=== PATIENT | male | born 1950 | race Caucasian/White ===

== ENCOUNTER 2020-05-09 12:51 | Emergency (ER) | payer MEDICARE, SELFPAY ==
[2020-05-09 12:53] VITALS: BP 115/63; PULSE 101; RESP 16; TEMP 36.3; O2SAT 94; BMI 17.6
[2020-05-09 12:55] VITALS: BP 115/63; PULSE 101; RESP 16; TEMP 36.3; O2SAT 94
--- NOTE | 2020-05-09 13:25 | EKG12_ITS ---
Test Reason : Blood Pressure : / mmHG Vent. Rate : 080 BPM Atrial Rate : 080 BPM P-R Int : 124 ms QRS Dur : 092 ms QT Int : 362 ms P-R-T Axes : 091 090 063 degrees QTc Int : 417 ms Suspect arm lead reversal, interpretation assumes no reversal Normal sinus rhythm Normal ECG Confirmed by KARYN CALLAWAY, KAMINI ([id number]), editor sound HANNAH NARVAEZ ([id number]) on 05/10/2020 8:36:09 AM Referred By: THERESA Confirmed By:KAMINI BOSS MD
--- NOTE | 2020-05-09 13:26 | ED.VIS.DYS ---
History of Present Illness Chief Complaint: Shortness of Breath Informant: Patient Onset: Weeks - 4-6 Activity at onset: Light Activity Timing: Continuous Quality: - - can't get a deep breath Current Severity: Moderate Maximum Severity: Moderate Worsened by: Exertion, Lying flat Relieved by: Rest Associated Symptoms: Clear sputum, Cough. Negative for: Fever Chest Pain: None Narrative: Patient states he has been a longtime smoker, over 50 years, and he does not have a physician. Comes to the ER because he has had progressively worsening trouble breathing along with an intermittent productive cough for the past 4 to 6 weeks, and for similar period of time, discomfort in his abdomen that he describes as needing to burp/belch but I cannot. No pain, nausea, vomiting, abnormal stools. He has had bouts of constipation, he had a normal bowel movement today with no melena or blood that did not change the discomfort which really is a side note compared with his breathing. He denies any known exposure to COVID-19 although he presents during the pandemic. He denies any fevers, chills, headaches, myalgias. Past Medical History - Allergies and Home Meds Allergies/Adverse Reactions: Allergies No Known Allergies Allergy (Verified 05/09/20 12:53) Doctors: None Past Medical History: None - None known Smoking Status: Current every day smoker Review of Systems General: Denies: Chills, Fever, Sweats Eyes: Denies: Visual changes - bilaterally, Diplopia ENT: Reports: Rhinorrhea - Chronic for years, clear, unchanged. Denies: Bilateral ear pain, Sore throat Cardiovascular: Denies: Chest pain, Palpitations Respiratory: Reports: Dyspnea, Cough, Sputum, Dyspnea on exertion, Orthopnea. Denies: Paroxysmal nocturnal dyspnea Gastrointestinal: Reports: - - See HPI. Denies: Abdominal pain, Nausea, Vomiting, Diarrhea, Melena, Hematochezia Genitourinary: Denies: Dysuria, Hematuria, Frequency Musculoskeletal: Reports: Back pain - Sore, worse with movement, mild. Denies: Myalgias, Neck pain, Swelling, Extremity Pain Skin: Denies: Rash, Wounds Neurological: Denies: Headache, Weakness, Numbness Physical Exam Vital Signs/Narrative: Vital Signs Temp Pulse Resp BP Pulse Ox 05/09/20 12:53 97.3 F L 101 H 16 115/63 94 Inital Vital Signs reviewed: Yes General: Well nourished, Well developed, No Acute Distress - Conversive in full sentences Head: Normocephalic, Atraumatic Eyes: Perrl, EOMI ENT: Moist mucous membranes, No rhinorrhea Neck: Supple, Nontender, No lymphadenopathy, No JVD Cardiovascular: Regular rate, Regular rhythm, No murmurs, Tachycardia - Mild Respiratory: No distress, CTA bilaterally, Chest nontender, Diminished - Throughout, symmetrically Abdomen: Soft, Nontender, Nondistended, Normal bowel sounds Back: Nontender, Normal Inspection. Negative for: CVA tenderness Extremities: Nontender, No edema. Negative for: Calf Tenderness Skin: Normal color, No rash, No Trauma Neurological: Alert, Oriented x3, Cranial nerves II-XII grossly intact, Normal Strength, Normal Sensation, Normal Gait Psychological: Normal Mood, - - A little anxious Diagnostic/Tx/Re-eval Chest X-Ray - ED: 1 View, Read by ED Physician, No Acute Disease, - - Hyperexpansion and flattened diaphragms consistent with COPD pattern Laboratory Results 05/09/20 05/09/20 05/09/20 13:41 13:41 13:41 WBC 9.4 RBC 4.72 Hgb 15.3 Hct 45.4 MCV 96.2 H MCH 32.4 H MCHC 33.7 RDW Std Deviation 40.0 RDW Coeff of Vita 11.3 L Plt Count 271 MPV 8.9 Immature Gran % (Auto) 0.400 Neut % (Auto) 79.6 H Lymph % (Auto) 13.2 L [place] % (Auto) 6.0 Eos % (Auto) 0.4 Baso % (Auto) 0.4 Absolute Neuts (auto) 7.5 Absolute Lymphs (auto) 1.24 Nucleated RBC % 0 Sodium 139 Potassium 4.9 Chloride 104 Carbon Dioxide 33.0 H Anion Gap 2 L BUN 18 Creatinine 0.78 Estim Creat Clear Calc 54.00 Est GFR (MDRD) Af Amer 127 Est GFR (MDRD) Non-Af 105 BUN/Creatinine Ratio 23.0 H Glucose 89 Calcium 9.5 Troponin I < 0.015 B-Natriuretic Peptide 41.9 - Rhythm Strip Rhythm Strip: Sinus Rhythm Rate: 80 Ectopy: None - EKG Initial EKG Interpretation: Sinus Rhythm, No Acute Injury Pattern Prior: Unchanged Treatment - Dyspnea: Albuterol Repeat Evaluation: Improved - Medical Decision Making Labs are all normal including troponin and BNP. With his smoking history and hyperexpanded lungs on chest x-ray, I suspect he has undiagnosed COPD, likely related to the fact that he does not see outpatient physicians. I have referred him to the next doctor on the unassigned list for primary care in addition to our wedding cake designer certified pest control technician. He felt a little better after albuterol from an inhaler that was given to him, in addition to prescriptions for a prednisone taper and inhaled fluticasone to start him on something for maintenance until he can get formally worked up. Since he presents at a peak in the coronavirus pandemic, he was also tested as an outpatient for COVID-19 and advised to quarantine until the results return which will not be today, he does not need to be admitted since he is not hypoxic or having any symptoms concerning for angina. ED Disposition - Plan for ED Patient: Disposition: Home or Assisted Living Diagnosis: Dyspnea Instructions: ED COPD Flare Prescriptions: Fluticasone 110 Mcg [Flovent (SP)] 1 puff INHALATION BID #1 inhaler Prescription Printed Prednisone 10 mg PO UD #33 tab Prescription Printed Referrals: Care Physician,No Primary [Primary Care Provider] - Kerri Wayne DO [STAFF PHYSICIAN] - (call for appt) Evens Vasquez MD [STAFF PHYSICIAN] - (call for appt) Additional Instructions: The inhaler you received in the emergency department is albuterol, it is a rescue inhaler, and can be used as needed acutely for shortness of breath, 2 puffs inhaled up to every 3-4 hours as needed.
[2020-05-09 13:49] LABS: Absolute Lymphocyte Count 1.24 X10^3/uL (0.83-4.51); Absolute Neutrophil Count 7.5 X10^3/uL (2.0-7.7); Basophil# 0.04 X10^3/uL; Basophil% 0.4 % (0-1); Eosinophil# 0.04 X10^3/uL; Eosinophils% 0.4 % (0-5); Hematocrit 45.4 % (40-54); Hemoglobin 15.3 g/dL (13.0-16.5); Lymphocyte # 1.24 X10^3/ul (4.0); Lymphocyte % 13.2 % (19-41); Mean Corp Hgb Conc 33.7 g/dL (32-36); Mean Corpuscular Hgb 32.4 pg (27.0-32.0); Mean Corpuscular Volume 96.2 fL (80-94); Mean Platelet Vol. 8.9 fl (6.2-12.0); Monocyte# 0.56 X10^3/uL; NRBC Flagged by Analyzer 0 % (0-5); Neutrophil # 7.45 X10^3/uL (2.7-7.7); Neutrophil % 79.6 % (47-70); Platelet Count 271 K/mm3 (150-450); RBC Distribution Width CV 11.3 % (11.6-14.6); Red Blood Count 4.72 M/mm3 (4.6-6.2); White Blood Count 9.4 K/mm3 (4.4-11.0)
[2020-05-09 13:55] VITALS: BP 119/62; PULSE 83; RESP 18; TEMP 36.8; O2SAT 98
[2020-05-09 14:06] LABS: BNP,B-Type NATRIURETIC PEPTIDE 41.9 pg/mL (0-100)
[2020-05-09 14:08] LABS: Anion Gap 2 (5-15); BUN 18 mg/dL (7-18); Calcium,Total 9.5 mg/dL (8.5-10.1); Chloride 104 mmol/L (98-107); Creatinine, Serum 0.78 mg/dL (0.70-1.30); EST Glomerular Filtration Rate 105 mL/min (>60); Est Glom Filt Rate - Afr Amer 127 mL/min (>60); Glucose 89 mg/dL (74-106); Potassium 4.9 mmol/L (3.5-5.1); Sodium Level 139 mmol/L (136-145)
--- NOTE | 2020-05-09 14:10 | RAD_ITS ---
STUDY: X-RAY CHEST REASON FOR EXAM: Male, 69 years old. SOB AND COUGH X 6WKS TECHNIQUE: Single AP portable view of the chest. COMPARISON: None. FINDINGS: EKG electrodes are seen. Hyperinflation. Mild scarring at the lung bases. Normal size heart. Normal mediastinum and genaro. There is prominence of the pulmonary hilar arteries without peripheral pulmonary vascular congestion, suggesting pulmonary hypertension. Normal visualized aortic arch and descending thoracic aorta. There are diffuse degenerative changes of the visualized thoracic spine. Normal visualized ribs, clavicles, and shoulders. There is no demonstrated abnormality of the visualized soft tissue structures of the upper abdomen. RAD/Chest 1 View (Portable) IMPRESSION: Hyperinflation. Prominence of the central pulmonary arteries. Electronically Signed: Juan Crum, at 14:34 EST , Service support ,
[2020-05-09 14:31] VITALS: BP 119/72; PULSE 71; RESP 18; O2SAT 98
== END 2020-05-09 14:31 | disposition home or self-care (01) ==
PROVIDERS: Emergency Provider Emergency Medicine
DX: R06.00 Dyspnea, unspecified (principal); R05 Cough; J34.89 Other specified disorders of nose and nasal sinuses; M54.9 Dorsalgia, unspecified; F17.200 Nicotine dependence, unspecified, uncomplicated
CPT/HCPCS: 71045; 80048; 83880; 84484; 85025; 87635; 93005; 94640; 99284; A4216; U0003

== ENCOUNTER 2020-05-31 19:51 | Emergency (ER) | payer MEDICARE, SELFPAY ==
[2020-05-23 09:05] VITALS: BMI 17.7
[2020-05-31 19:52] VITALS: BP 136/63; PULSE 109; RESP 22; TEMP 36.4; O2SAT 94; BMI 18.3
--- NOTE | 2020-05-31 20:11 | ED.RN ---
PT TRIAGED AND AMBULATED BACK TO ROOM, WHEN ASKED TO WEAR GOWN AND GET INTO BED HE DECLINED, STATED HE WAS LEAVING IF EXPECTED TO REMOVE SHIRT OR SIT IN BED. ADAMANTLY REFUSES TO STAY AND SPEAK TO MD. AMBULATED OUT OF DEPT.
== END 2020-05-31 20:15 | disposition left against medical advice (07) ==
LOC: ED 20:14
PROVIDERS: Emergency Provider Emergency Medicine; PCP Internal Medicine Critical Care Medicine
DX: Z53.21 Procedure and treatment not carried out due to patient leaving prior to being seen by health care provider (principal)

== ENCOUNTER 2021-03-19 09:25 | Inpatient (IN) | payer MEDICARE, SELFPAY ==
[2021-03-19] VITALS (28 sets, daily range): BP systolic 82–128; BP diastolic 31–113; PULSE 29–186; RESP 16–165; TEMP 36.3–37.3; O2SAT 89–99; BMI 18.4; BMI 18.1
[2021-03-19] MEDS: Adenosine 6 MG/2 ML Syringe IV (09:45)
[2021-03-19] MEDS: Adenosine 6 MG/2 ML Syringe 12 MG IV (09:46)
--- NOTE | 2021-03-19 09:51 | EKG12_ITS ---
Test Reason : TACHYCARDIA Blood Pressure : / mmHG Vent. Rate : 185 BPM Atrial Rate : 185 BPM P-R Int : 090 ms QRS Dur : 086 ms QT Int : 252 ms P-R-T Axes : 000 089 -33 degrees QTc Int : 442 ms Atrial Flutter with short HI with Premature supraventricular complexes Nonspecific ST abnormality Abnormal ECG Confirmed by KARYN CALLAWAY, KAMINI ([id number]), general expeditor TRACY FIGUEROA ([id number]) on 03/20/2021 2:03:41 PM Referred By: DIANELYS Confirmed By:KAMINI BOSS MD
--- NOTE | 2021-03-19 09:51 | RAD_ITS ---
STUDY: X-RAY CHEST REASON FOR EXAM: Male, 70 years old. Dyspnea. Shortness of breath. COPD. TECHNIQUE: Single AP portable view of the chest. COMPARISON: Comparison is made with prior study dated 05/09/2020. FINDINGS: EKG electrodes are seen. There is hyperinflation of the lungs consistent with chronic obstructive lung disease (COPD). Moderate sized right pleural effusion. Fluid is seen within the right minor fissure. There is evidence of atelectasis and/or infiltration at the right lung base. Normal size heart. Normal mediastinum and genaro. Normal visualized pulmonary arteries. Normal visualized aortic arch and descending thoracic aorta. Normal visualized thoracic spine. Normal visualized ribs, clavicles, and shoulders. There is no demonstrated abnormality of the visualized soft tissue structures of the upper abdomen. RAD/Chest 1 View (Portable) IMPRESSION: Moderate size right pleural effusion with right basilar infiltration and/or atelectasis. Hyperinflation. Electronically Signed: Juan Crum MD at 11:13 EDT , Service support ,
[2021-03-19 10:01] LABS: Absolute Lymphocyte Count 0.95 X10^3/uL (0.83-4.51); Absolute Neutrophil Count 35.5 X10^3/uL (2.0-7.7); Basophil# 0.08 X10^3/uL; Basophil% 0.2 % (0-1); Hematocrit 41.9 % (40-54); Hemoglobin 13.1 g/dL (13.0-16.5); Lymphocyte # 0.95 X10^3/ul (0.83-4.51); Lymphocyte % 2.5 % (19-41); Mean Corp Hgb Conc 31.3 g/dL (32-36); Mean Corpuscular Hgb 29.6 pg (27.0-32.0); Mean Corpuscular Volume 94.6 fL (80-94); Mean Platelet Vol. 10.1 fl (6.2-12.0); Monocyte# 1.54 X10^3/uL; NRBC Flagged by Analyzer 0 % (0-5); Neutrophil # 35.51 X10^3/uL (2.7-7.7); Neutrophil % 91.8 % (47-70); POSITIVE COUNT YES; POSITIVE DIFFERENTIAL YES; Platelet Count 530 K/mm3 (150-450); RBC Distribution Width CV 12.7 % (11.6-14.6); RBC Distribution Width SD 43.8 fl (35.1-43.9); Red Blood Count 4.43 M/mm3 (4.6-6.2)
[2021-03-19] MEDS: Ipratropium/Albuterol Sulfate 3 ML AMPUL.NEB INHALATION (10:09)
[2021-03-19] MEDS: Etomidate 20 MG/10 ML Vial 9 MG IV (10:09)
[2021-03-19] MEDS: Albuterol 2.5 MG/3 ML VIAL.NEB. INHALATION (10:09)
[2021-03-19] MEDS: 0.9% Normal Saline 1,000 ML 999 ML IV (10:11)
[2021-03-19 10:14] LABS: International Normalized Ratio 1.4; Prothrombin Time (Protime)PT. 16.4 SECONDS (11.7-14.9)
[2021-03-19 10:15] LABS: Partial Thromboplast Time 40.3 Seconds (24.1-36.2)
--- NOTE | 2021-03-19 10:18 | EDS_ITS ---
HPI History of Present Illness Chief Complaint: Shortness of Breath Informant: patient and friend Narrative Narrative: 70-year-old male history of COPD presents to the emergency department with shortness of breath. He tells me he got sick about 2 weeks ago and has had worsening cough and shortness of breath over the past couple days. He denies any fevers or diarrhea. States he has been eating and drinking very little. He states that he takes no medications. He has an albuterol aerosol at home but he is never used it. He denies any known heart problems. [facility] Medical History (Updated 03/19/21 @ 13:[address] Meir Terrell DO) COPD (chronic obstructive pulmonary disease) Home Medications albuterol sulfate 90 mcg/actuation aerosol inhaler 2 puff INHALATION Q4H PRN #8.5 g 05/23/20 [Rx Last Taken Unknown] umeclidinium 62.5 mcg-vilanterol 25 mcg/actuation powdr for inhalation 1 inh INHALATION DAILY #60 ea 06/01/20 [Rx Last Taken Unknown] Allergy/AdvReac Type Severity Reaction Status Date / Time No Known Allergies Allergy Verified 03/19/21 10:00 Surgical History History of suburethral sling procedure Social History Smoking Status: Unknown if ever smoked Tobacco: How many years used: 50 ROS ROS ED ROS Narrative Generalized fatigue Constitutional Constitutional ED: Denies chills or weight loss Eyes Eyes: Denies change in vision or diplopia ENT ENT ED: Denies ear pain, rhinorrhea or sore throat Cardiovascular Cardiovascular: Reports racing heartbeat; Denies chest pain, orthopnea or palpitations Respiratory/Chest Respiratory/Chest: Reports cough, dyspnea and sputum; Denies orthopnea Gastrointestinal Gastrointestinal: Denies abdominal pain, diarrhea, nausea or vomiting Genitourinary Genitourinary ED: Denies dysuria, hematuria or urinary frequency Musculoskeletal Musculoskeletal: Denies arthralgias or myalgias Integumentary Denies abscess or rash Neurologic Neurologic: Denies headache(s) or weakness Psychiatric Psychiatric: Denies anxiety, depression, suicidal ideation or suicidal thoughts Endocrine Endocrinology: Denies polydipsia, polyphagia or polyuria Allergic/Immunologic Allergic/Immunologic ED: Denies mouth swelling, tongue swelling or urticaria EXAM Physical Exam Narrative Exam Narrative: Patient appears ill and weak Const Vital Signs: 03/19/21 09:26 03/19/21 09:42 03/19/21 10:06 Temperature 98.3 F 98.3 F Temperature Source Temporal Temporal Pulse Rate 182 H 186 H Respiratory Rate 18 28 H Respiratory Effort Short of Breath Labored Respiratory Depth Shallow Respiratory Pattern Tachypnea Blood Pressure 82/63 L 107/74 Blood Pressure Mean 69 85 Pulse Ox 89 Oxygen Delivery Method Nasal Cannula Nasal Cannula Nasal Cannula Oxygen Flow Rate (L/min) 5 5 03/19/21 10:10 03/19/21 10:27 03/19/21 10:31 Temperature 98.3 F 98.4 F Temperature Source Temporal Temporal Pulse Rate 180 H 186 H 172 H Respiratory Rate 23 H 28 H 28 H Respiratory Effort Respiratory Depth Respiratory Pattern Tachypnea Blood Pressure 124/55 H 107/76 Blood Pressure Mean 78 86 Pulse Ox 91 98 Oxygen Delivery Method Nasal Cannula Oxygen Flow Rate (L/min) 5 5 03/19/21 10:39 03/19/21 11:54 03/19/21 12:05 Temperature 98.4 F 98.1 F 97.3 F L Temperature Source Temporal Temporal Temporal Pulse Rate 157 H 29 L 139 H Respiratory Rate 28 H 165 H 19 H Respiratory Effort Respiratory Depth Respiratory Pattern Blood Pressure 107/76 103/70 104/61 Blood Pressure Mean 86 81 75 Pulse Ox 92 90 95 Oxygen Delivery Method Nasal Cannula Nasal Cannula Oxygen Flow Rate (L/min) 5 5 5 Positive well nourished and well developed General Appearance ED: well developed HEENT Reports normocephalic, head/scalp atraumatic and moist mucous membranes Eyes PERRL and EOMs intact bilaterally Neck no lymphadenopathy, supple and no JVD Resp Resp Narrative: Patient is tachypneic. Lung sounds are diminished. Moist cough. Auscultation: diminished lung sounds Cardio regular rate and no murmurs Rate: tachycardic GI normal to inspection, nondistended, normoactive bowel sounds and non-tender Palpation: soft Back/Spine no CVA tenderness and normal ROM Extremity normal to inspection General Extremety ED: Negative for edema General Extremity: Negative for edema Neuro oriented x3 and CN's II-XII intact bilaterally Sensorium / Orientation: alert Motor Exam: strength 5/5 throughout Psych mental status grossly normal Mood & Affect: Negative for depressed or tearful Skin no rashes or lesions noted and no wounds MDM MDM MDM Narrative Medical decision making narrative: Initial EKG is concerning for SVT. He is initially hypotensive. Patient received a dose of adenosine and a second 12 mg dose. This did not result in any change on the monitor. Patient provided informed emergent verbal consent for sedation for cardioversion. Patient received 9 mg of etomidate. Once adequate sedation was achieved the patient underwent to synchronized 200 J shocks. Each time the patient went into a sinus tachycardia with a rate of around 110 bpm and about 30 seconds later returned back to the narrow complex SVT. Patient was then loaded with amiodarone and placed on the drip. This is sufficiently lowered his rate the 90-130 rate. My interpretation of the chest x-ray is a new large pleural effusion on the right. Patient's white count is elevated at 38.7. His lactic acid is elevated at 2.1. Patient has been receiving IV fluids as his BUN is [address] of the chest was obtained which shows a loculated effusion. My concern is for empyema. Radiology does not have the availability to do a thoracentesis today. He received Zosyn after blood cultures were obtained. I spoke with pulmonology Dr. Gibbs as well as her hospitalist and we will plan on admission. Lab Data Attestation: I reviewed the patient's lab results. Labs: Laboratory Results - last 24 hr 03/19/21 03/19/21 03/19/21 09:35 09:35 09:35 WBC 38.7 H* RBC 4.43 L Hgb 13.1 Hct 41.9 MCV 94.6 H MCH 29.6 MCHC 31.3 L RDW Std Deviation 43.8 RDW Coeff of Vita 12.7 Plt Count 530 H MPV 10.1 Immature Gran % (Auto) 1.500 H Neut % (Auto) 91.8 H Lymph % (Auto) 2.5 L [place] % (Auto) 4.0 Eos % (Auto) 0.0 Baso % (Auto) 0.2 Absolute Neuts (auto) 35.5 H Absolute Lymphs (auto) 0.95 Nucleated RBC % 0 Differential Comment COMMENT Diff Path Review May foll Platelet Estimate MOD INC RBC Morphology NORM C+C PT 16.4 H INR 1.4 APTT 40.3 H Sodium 132 L Potassium 4.5 Chloride 94 L Carbon Dioxide 31.0 Anion Gap 7 BUN 65 H Creatinine 0.98 Estim Creat Clear Calc 57.05 Est GFR (MDRD) Af Amer 98 Est GFR (MDRD) Non-Af 81 BUN/Creatinine Ratio 66.5 H Glucose 115 H Lactic Acid Calcium 9.5 Magnesium 3.1 H Total Bilirubin 0.80 AST 29 ALT 27 Alkaline Phosphatase 111 Troponin I High Sens 35 Total Protein 7.7 Albumin 2.0 L Globulin 5.7 H Albumin/Globulin Ratio 0.4 L 03/19/21 09:35 WBC RBC Hgb Hct MCV MCH MCHC RDW Std Deviation RDW Coeff of Vita Plt Count MPV Immature Gran % (Auto) Neut % (Auto) Lymph % (Auto) [place] % (Auto) Eos % (Auto) Baso % (Auto) Absolute Neuts (auto) Absolute Lymphs (auto) Nucleated RBC % Differential Comment Diff Path Review Platelet Estimate RBC Morphology PT INR APTT Sodium Potassium Chloride Carbon Dioxide Anion Gap BUN Creatinine Estim Creat Clear Calc Est GFR (MDRD) Af Amer Est GFR (MDRD) Non-Af BUN/Creatinine Ratio Glucose Lactic Acid 2.1 H* Calcium Magnesium Total Bilirubin AST ALT Alkaline Phosphatase Troponin I High Sens Total Protein Albumin Globulin Albumin/Globulin Ratio Radiography Diagnostic Testing: Radiology Impression Chest X-Ray 03/19/21 09:51 IMPRESSION: Moderate size right pleural effusion with right basilar infiltration and/or atelectasis. Hyperinflation. Electronically Signed: Juan Crum MD at 11:13 EDT , Service support , Chest CTA 03/19/21 11:07 IMPRESSION: Large right pleural effusion with loculation. Fluid is seen within the minor fissure. Volume loss in the right upper lobe. Underlying emphysematous changes. Electronically Signed: Juan Crum MD at 12:23 EDT , Service support , EKG Initial EKG: Attestation: I personally reviewed and interpreted this EKG as follows: Comments: EKG demonstrates a narrow complex tachycardia at a rate of 185. There appears to be different morphology of the complexes. Discharge Plan Triage Chief Complaint: Shortness of Breath ED Provider: Meir Terrell Dx/Rx/DC Orders Clinical Impression: Sustained SVT, Pleural effusion on right, Sepsis, Acute hypoxemic respiratory failure Prescriptions: No Action albuterol sulfate 90 mcg/actuation HFA aerosol inhaler 2 puff INHALATION Q4H PRN (Reason: shortness of breath or wheezing) Qty: 8.5 RF: 6 umeclidinium-vilanterol 62.5-25 mcg/actuation blister with device 1 inh INHALATION DAILY Qty: 60 RF: 3 Primary Care Provider: Care Physician,No Primary Referrals: Care Physician,No Primary [Primary Care Provider] - Disposition Disposition: Acute Care Hospital [facility]
[2021-03-19 10:19] LABS: ALB/GLOB Ratio 0.4 RATIO (0.9-2.4); AST(SGOT) 29 U/L (15-37); Alanine Aminotransfer ALT/SGPT 27 U/L (16-61); Alkaline Phosphatase 111 U/L (45-117); Anion Gap 7 (5-15); BUN 65 mg/dL (7-18); BUN/Creat Ratio 66.5 RATIO (10-20); Calcium,Total 9.5 mg/dL (8.5-10.1); Chloride 94 mmol/L (98-107); Creatinine, Serum 0.98 mg/dL (0.70-1.30); Differential Indicated SCAN CRITERIA MET; EST Glomerular Filtration Rate 81 mL/min (>60); Est Glom Filt Rate - Afr Amer 98 mL/min (>60); Estimated Creatinine Clearance 57.05 ml/min; Globulin 5.7 g/dL (2.2-4.2); Glucose 115 mg/dL (74-106); Magnesium 3.1 mg/dL (1.6-2.6); Potassium 4.5 mmol/L (3.5-5.1); Protein, Total 7.7 g/dL (6.4-8.2); Sodium Level 132 mmol/L (136-145); Troponin-I HS 35 pg/mL (3.0-78.0); White Blood Count 38.7 K/mm3 (4.4-11.0)
[2021-03-19] MEDS: 0.9% Normal Saline 1,000 ML 150 ML IV ×3 (10:30→23:28)
[2021-03-19 10:35] LABS: Platelet Estimate MOD INC (ADEQ); Red Cell Morphology NORM C+C NORMAL (NORM C&C)
[2021-03-19] MEDS: Amiodarone 360 MG in Dextrose 5% Viaflo Bag 192.8 ML 33.3 MG CONT INF (10:39)
[2021-03-19 10:46] LABS: Lactic Acid 2.1 mmol/L (0.4-1.9)
--- NOTE | 2021-03-19 11:07 | CT_ITS ---
STUDY: CTA CHEST REASON FOR EXAM: Male, 70 years old. Pulmonary embolism RADIATION DOSAGE (If Supplied By Facility): CTDIvol = ( 6.06 ) mGy, DLP = ( 178.20 ) mGycm TECHNIQUE: The examination was performed with the intravenous administration of IV 100mL Isovue-370. Post-processing of the angiographic images was performed, with multiplanar reformation and 3D reconstruction. Individualized dose optimization techniques were used for this CT. COMPARISON: Comparison is made with prior chest radiograph done earlier in the day. FINDINGS: Normal enhancement of the main pulmonary artery and right and left pulmonary arteries. Normal enhancement of the bilateral peripheral pulmonary arteries. There is no demonstrated pulmonary embolism. There is atherosclerotic calcification of the aortic arch with tortuosity. There is no demonstrated aortic dissection. There are calcifications of the coronary arteries. Normal mediastinum. Normal hilar regions. Normal visualized trachea and bronchi. Large right pleural effusion with loculation. Fluid is seen in the right minor fissure. There is evidence of volume loss in the right upper lobe. Mild loss Normal chest wall structures. Normal osseous structures. Normal visualized upper abdomen. CT/CTA Chest W/WO Contrast IMPRESSION: Large right pleural effusion with loculation. Fluid is seen within the minor fissure. Volume loss in the right upper lobe. Underlying emphysematous changes. Electronically Signed: Juan Crum MD at 12:23 EDT , Service support ,
[2021-03-19] MEDS: 0.9% Normal Saline 1,000 ML 1000 ML IV ×2 (11:20→13:25)
--- NOTE | 2021-03-19 13:15 | HP.PCM.HOS_ITS ---
HPI - General General Date of Admission: 03/19/21 HPI Narrative MAGO GILLIAM, is a 70 M with a PMH as outlined which includes COPD who presents via the ED on 03/19/2021 with a complaint of shortness of breath. He doesnt follow up a physician. He got sick about 2 weeks ago, which has gradually worsened.He hadnt been eating or drinking much. He denied any chest pain, palpitations, dizziness, nausea or vomiting. He was noted to have a HR in the 180s, which EKG showed a multifocal atrial tachycardia. He didnt improve with administration of adenosine, nor did he improve after being cardioverted x 2. He was started on amiodarone drip. Vitals showed temp of 97.3F, HR of 139, RR of 19, BP of 104/61 and he was saturating at 95% on 2L of oxygen. CBC showed hemoglobin of 13.1 with WBC of 38.7 and platelets of 530. Chemistry was remarkable for sodium of 132. COVID-19 PCR test was negative. CTA of the chest showed no evidence of PE but showed a large right pleural effusion with locu lation and evidence of volume loss in the right upper lobe. Case was discussed with radiology and pulmonology by ED doctor and there was no possibility of doing thoracentesis today. Patient has been managed for acute hypoxic respiratory failure due to large right pleural effusion as well as sepsis due to probable pneumonia with parapneumonic effusion and SVT. FOR[facility]LY [facility] Medical History (Updated 03/19/21 @ 15:18 by Jelena Trevino) Alcohol abuse Atrial fibrillation (03/19/21) COPD (chronic obstructive pulmonary disease) Former smoker Vision loss of left eye Vision loss of right eye Home Medications albuterol sulfate 90 mcg/actuation aerosol inhaler 2 puff INHALATION Q4H PRN #8.5 g 05/23/20 [Rx Last Taken 03/18/21] Allergy/AdvReac Type Severity Reaction Status Date / Time No Known Allergies Allergy Verified 03/19/21 10:00 Surgical History History of suburethral sling procedure Social History Smoking Status: Former smoker quit date: 03/30/20 pack-years: 50 Tobacco: How many years used: 50 ROS Review of Systems ROS Unobtainable: Denies due to encephalopathy Constitutional Constitutional: Reports anorexia, change in weight, fatigue, malaise and weakness; Denies chills, fever(s) or night sweats ENT HEENT: Denies abnormal hearing, dysphagia, epistaxis, nasal congestion, nasal discharge, sinus pressure or sore throat Cardiovascular Cardiovascular: Reports dyspnea on exertion, orthopnea, palpitations, paroxysmal nocturnal dyspnea and rapid heart rate; Denies chest pain, edema, lightheadedness or syncope Respiratory/Chest Respiratory/Chest: Reports cough, dyspnea, productive cough, shortness of breath at rest and shortness of breath with exertion; Denies excessive phlegm production or hemoptysis Gastrointestinal Gastrointestinal: Denies abdominal pain, constipation, diarrhea, nausea or vomiting Genitourinary Genitourinary: Denies burning urination, dysuria or urinary frequency Musculoskeletal Musculoskeletal: Denies arthralgias, joint pain, joint swelling or myalgias Neurologic Neurologic: Denies confusion, dizziness, focal weakness, numbness, seizure-like activity or syncope Psychiatric Psychiatric: Denies anxiety or depression Vital Signs Vital Signs Vital Signs: 03/19/21 09:26 03/19/21 09:42 03/19/21 10:06 Temperature 98.3 F 98.3 F Temperature Source Temporal Temporal Pulse Rate 182 H 186 H Respiratory Rate 18 28 H Respiratory Effort Short of Breath Labored Respiratory Depth Shallow Respiratory Pattern Tachypnea Blood Pressure 82/63 L 107/74 Blood Pressure Mean 69 85 Pulse Ox 89 Oxygen Delivery Method Nasal Cannula Nasal Cannula Nasal Cannula Oxygen Flow Rate (L/min) 5 03/19/21 10:10 03/19/21 10:27 03/19/21 10:31 Temperature 98.3 F 98.4 F Temperature Source Temporal Temporal Pulse Rate 180 H 186 H 172 H Respiratory Rate 23 H 28 H 28 H Respiratory Effort Respiratory Depth Respiratory Pattern Tachypnea Blood Pressure 124/55 H 107/76 Blood Pressure Mean 78 86 Pulse Ox 91 98 Oxygen Delivery Method Nasal Cannula Oxygen Flow Rate (L/min) 5 5 03/19/21 10:39 03/19/21 11:54 03/19/21 12:05 Temperature 98.4 F 98.1 F 97.3 F L Temperature Source Temporal Temporal Temporal Pulse Rate 157 H 29 L 139 H Respiratory Rate 28 H 165 H 19 H Respiratory Effort Respiratory Depth Respiratory Pattern Blood Pressure 107/76 103/70 104/61 Blood Pressure Mean 86 81 75 Pulse Ox 92 90 95 Oxygen Delivery Method Nasal Cannula Nasal Cannula Oxygen Flow Rate (L/min) 5 5 5 Weight Weight: 125 lb Body Mass Index (BMI) 18.4 Physical Exam Const alert and oriented x3 General Appearance: cooperative Orientation / Consciousness: lethargic HEENT normocephalic, head/scalp atraumatic and hearing grossly normal bilaterally HEENT Narrative: dry mucous membranes Eyes PERRL, EOMs intact bilaterally and conjunctivae normal Neck no lymphadenopathy, supple and no JVD Resp Resp Narrative: tachypneic, decreased breath sounds in right mid and lower lung coppola; no wheezes or crackles. on 5L of oxygen Cardio S1 normal heart sound, S2 normal heart sound and no murmurs Cardio Narrative: tachycardic GI normal to inspection, nondistended, normoactive bowel sounds, soft to palpation, non-tender and non-distended Extremity normal to inspection, full ROM and no clubbing, cyanosis or edema Peripheral Pulses: Yes pulses 2+ throughout Skin no rashes or lesions noted Neuro oriented x3, CN's II-XII intact bilaterally and moves all extremities Sensorium / Orientation: awake and alert Psych affect normal Results Lab / Micro Data Result Diagrams: 03/19/21 09:35 03/19/21 09:35 Labs: Laboratory Results - last 24 hr 03/19/21 09:35: WBC 38.7 H*, RBC 4.43 L, Hgb 13.1, Hct 41.9, MCV 94.6 H, MCH 29.6, MCHC 31.3 L, RDW Std Deviation 43.8, RDW Coeff of Vita 12.7, Plt Count 530 H, MPV 10.1, Immature Gran % (Auto) 1.500 H, Neut % (Auto) 91.8 H, Lymph % (Auto) 2.5 L, Emmet % (Auto) 4.0, Eos % (Auto) 0.0, Baso % (Auto) 0.2, Absolute Neuts (auto) 35.5 H, Absolute Lymphs (auto) 0.95, Nucleated RBC % 0, Differe ntial Comment COMMENT, Diff Path Review May foll, Platelet Estimate MOD INC, RBC Morphology NORM C+C 03/19/21 09:35: PT 16.4 H, INR 1.4, APTT 40.3 H 03/19/21 09:35: Sodium 132 L, Potassium 4.5, Chloride 94 L, Carbon Dioxide 31.0, Anion Gap 7, BUN 65 H, Creatinine 0.98, Estim Creat Clear Calc 57.05, Est GFR (MDRD) Af Amer 98, Est GFR (MDRD) Non-Af 81, BUN/Creatinine Ratio 66.5 H, Glucose 115 H, Calcium 9.5, Magnesium 3.1 H, Total Bilirubin 0.80, AST 29, ALT 27, Alkaline Phosphatase 111, Troponin I High Sens 35, Total Protein 7.7, Albumin 2.0 L, Globulin 5.7 H, Albumin/Globulin Ratio 0.4 L 03/19/21 09:35: Lactic Acid 2.1 H* Micro: Microbiology 03/19/21 10:05 Nasal Secretion SARS-CoV-2 Antigen (Rapid) - Final Radiology Impression Chest X-Ray 03/19/21 09:51 IMPRESSION: Moderate size right pleural effusion with right basilar infiltration and/or atelectasis. Hyperinflation. Electronically Signed: Juan Crum MD at 11:13 EDT , Service support , Chest CTA 03/19/21 11:07 IMPRESSION: Large right pleural effusion with loculation. Fluid is seen within the minor fissure. Volume loss in the right upper lobe. Underlying emphysematous changes. Electronically Signed: Juan Crum MD at 12:23 EDT , Service support , Assessment & Plan Assessment/Plan (1) Pleural effusion, right: (2) Sepsis with acute hypoxic respiratory failure: (3) Sepsis: (4) Tachycardia: PLAN: #Acute hypoxic respiratory failure due to right pleural effusion * admit to ICU * Chest CT was negative for PE, but showed large right pleural effusion * patient'w wbc is markedly elevated at 38 * started on IV zosyn; will continue and add on IV vancomycin for broader antibiotic coverage * get blood cultures * titrate oxygen to maintain sats >90% * breathing treatment with bronchodilators * for diagnostic and therapeutic thoracentesis tomorrow * #Sepsis due to pleural effusion, probably parapneumonic * SIRS criteria- 3/4, tachypnea, tachycardia and leucocytosis, with source of infection being pneumonia * started on IV zosyn; will add on IV vancomycin * get blood cultures; check urine for strep and legionella * hydrate gently with IVF * trend lactic acid, which was 2.1 on admission * * #Supraventricular Tachycardia * patient's HR is in the 100s; was in the 180s on admission. had to be started on amiodarone drip, as he didnt respond to adenosine or cardioversion in the ED * cardiology consulted * 2D echo ordered * Potassium and magnesium are WNL * #COPD * doesnt use his inlahers at home, nor does he follow up with any physician * breathing treatment with bronchodilators * titrate oxygen to maintain sats .90% * DVT prophylaxis: lovenox Code status:full code * Patient counseled about differences between full code, DNRCC and DNRCCA. Patient elects to be full code. Charges/Coding Visit Charges Inpatient E&M: 31082 Init Hosp L3 Procedures Hospitalists Procedures: 79795 Advncd Care Plan 30 Min
--- NOTE | 2021-03-19 13:43 | NURSING ---
ICU KORAM PLEURAL EFFSUSION, MAT, ACUTE HYPOXEMIC RESP FAILURE
[2021-03-19 13:56] LABS: Reflex Lactate? Y
--- NOTE | 2021-03-19 14:47 | ECHOD_ITS ---
Reason For Study: ARRHYTHMIA Procedure This was a 2D Doppler, Color Flow transthoracic echocardiogram. The study was technically difficult. Due to HR and PT sitting upright due to discomfort. Exam performed portable in ICU/CCU. Left Ventricle Normal LV size. Left ventricular systolic function is normal. The estimated ejection fraction is 50 %. No regional wall motion abnormalities noted. Right Ventricle Normal RV size. Normal systolic function. Atria Normal left atrium. Normal right atrium. Mitral Valve Normal mitral valve. Tricuspid Valve Normal tricuspid valve. Mild to moderate (1-2+) tricuspid valve insufficiency. Pulmonary artery systolic pressure is 50 mmHg. Aortic Valve Normal aortic valve. Pulmonic Valve Normal pulmonic valve. Great Vessels Normal aortic root. The pulmonary artery is normal size. Normal inferior vena cava. Pericardium/Pleural No pericardial effusion. MMode/2D Measurements & Calculations LVIDd: 4.0 cm IVSd: 0.86 cm Ao root diam: 3.5 cm LVIDs: 3.1 cm LVPWd: 1.0 cm RVDd: 3.5 cm FS: 22.5 % LAV(MOD-bp): 60.9 ml LA A4 area: 18.7 cm2 LA dimension(2D): 4.8 cm LAV(MOD-bp) Indexed: 36.0 ml/m2 LAV(MOD-sp2): 70.6 ml LAV(MOD-sp4): 53.4 ml RA A4 area: 12.6 cm2 Time Measurements MV dec time: 0.14 sec Doppler Measurements & Calculations MV E max du: 82.0 cm/sec Ao V2 max: 129.9 cm/sec LV V1 max: 104.1 cm/sec MV A max du: 60.4 cm/sec Ao max P.7 mmHg LV V1 max P.3 mmHg MV E/A: 1.4 PA V2 max: 54.5 cm/sec TR max du: 336.4 cm/sec TR max P.3 mmHg ECHO/Echo Complete Interpretation Summary Normal LV size. Left ventricular systolic function is normal. The estimated ejection fraction is 50 %. Pulmonary artery systolic pressure is 50 mmHg. Ordering Physician: Kailey Aguilar Referring Physician: ADAM PCP Performed By: Juliet Wing RDCS, RVT
[2021-03-19 14:48] LABS: Lactic Acid 1.6 mmol/L (0.4-1.9)
[2021-03-19 15:31] LABS: Troponin-I HS 30 pg/mL (3.0-78.0)
[2021-03-19 15:53] LABS: Pathologist Review Reviewed
--- NOTE | 2021-03-19 17:18 | PCM.RX.CS ---
Consult Pharmacy has been consulted to manage selected antiobiotic: Vancomycin Type of Consult: New start Prior Doses of Antibiotics Received/Current Regimen: Medications Vancomycin HCl 1,500 mg/ (Sodium Chloride) 530 mls @ 250 mls/hr IV X1 ONE Stop: 03/19/21 17:37 Last Admin: 03/19/21 16:25 Dose: 250 mls/hr Documented by: Labs: Sodium 132 mmol/L (136-145) L 03/19/21 09:35 Potassium 4.5 mmol/L (3.5-5.1) 03/19/21 09:35 Chloride 94 mmol/L (98-107) L 03/19/21 09:35 Carbon Dioxide 31.0 mmol/L (21.0-32.0) 03/19/21 09:35 Anion Gap 7 (5-15) 03/19/21 09:35 BUN 65 mg/dL (7-18) H 03/19/21 09:35 Creatinine 0.98 mg/dL (0.70-1.30) 03/19/21 09:35 Est GFR (MDRD) Af Amer 98 mL/min (>60) 03/19/21 09:35 Est GFR (MDRD) Non-Af 81 mL/min (>60) 03/19/21 09:35 BUN/Creatinine Ratio 66.5 RATIO (10-20) H 03/19/21 09:35 Glucose 115 mg/dL (74-106) H 03/19/21 09:35 Microbiology: Microbiology 03/19/21 10:05 Nasal Secretion SARS-CoV-2 Antigen (Rapid) - Final Weight used for dosin kg Estimated Creatinine Clearance: 54 Goal Trough: 15-20 mcg/mL Pharmacy Plan for Drug Dosing: Vanc 1500mg IV x1 load and 500mg IV q12h after per policy with trough prior to 4th dose. Pharmacy Service will continue to monitor and adjust dosing as required. Follow-Up Labs: Trough Vancomycin - 03/21 @ 9697
[2021-03-19] MEDS: dilTIAZem 25 MG/5 ML Vial 20 MG IV BOLUS (17:25)
[2021-03-19] MEDS: Amiodarone 360 MG in Dextrose 5% Viaflo Bag 192.8 ML 16.7 MG CONT INF (18:31)
[2021-03-19 19:21] LABS: Troponin-I HS 30 pg/mL (3.0-78.0)
--- NOTE | 2021-03-19 22:33 | NURSING ---
Called Dr. Bo to let him know about pt BP and MAP. For past hour, diastolic BP has been in 30s with MAP of upper 50s. HR has been in 90s. Per provider, Cardizem and Amio drips should remain as they are.
[2021-03-20] VITALS (53 sets, daily range): BP systolic 67–140; BP diastolic 29–121; PULSE 68–90; RESP 14–31; TEMP 36.7–37.8; O2SAT 82–100
--- NOTE | 2021-03-20 | FLU_PTH ---
PATIENT: MAGO GILLIAM LOC: [facility] U#:[id number] AGE/SX: 70/M ROOM: [facility]09 RE03/19/[address]: Dr. Rohan Arizmendi DO : 1950 BED: 1 DIS: 03/22/2021 SPEC #: [id number] RECD: 03/20/21 14:41 STATUS: LINDA REQ #: [id number] DEYSI: 03/20/21 00:[address]: Rohan Arizmendi DEPT: CYTOLOGY RECD BY: Loi Doyle ENTERED: 03/21/21 09:37 SP TYPE: Fluid OTHR DR: MD Dr. Manny Montiel MD Dr. Derek Brown, DO Dr. Nana Yaa Koram, MD No Primary Care Phys PATRICK Ramirez Tissues: THORACIC FLUID Procedures: Special Stain Group II Special Stain Group I Surgery Specimen Level IV AFB Stain (control) GMS Stain (control) Cytospin Fluid HEADER OPERATION: Ultrasound-guided thoracentesis - right PRE-OP DIAGNOSIS: Right pleural effusion TISSUE SUBMITTED: Thoracentesis fluid for cytology DIAGNOSIS CYTOLOGY Thoracentesis fluid for cytology (cytospin and cell block): Marked acute inflammation. Negative for malignant cells. See comment. SJ:aiden 03/22/2021 COMMENT Special stains for acid fast bacilli and fungi are negative for organisms; matched controls are appropriate. Clinical correlation and appropriate follow up are necessary. Case has been reviewed in consultation with Dr. Chan who concurs with the above diagnosis. IDC:AM CYTOLOGY STUDY Slides are reviewed. CYTOLOGY GROSS Received is 90 ml of yellow cloudy fluid labeled with the patient's name and and designated per the requisition as thoracentesis. Submitted for cytology preparation including cell block. / aiden 03/21/2021 TC:2 CPT: 99828, 93190, 11875 x2
[2021-03-20] MEDS: Vancomycin IV 500 MG/100 ML BAG 100 MG IV ×2 (03:51→17:31)
[2021-03-20 04:33] LABS: Anion Gap 4 (5-15); BUN 51 mg/dL (7-18); BUN/Creat Ratio 71.5 RATIO (10-20); Chloride 108 mmol/L (98-107); Creatinine, Serum 0.71 mg/dL (0.70-1.30); EST Glomerular Filtration Rate 116 mL/min (>60); Est Glom Filt Rate - Afr Amer 141 mL/min (>60); Estimated Creatinine Clearance 57.44 ml/min; Glucose 137 mg/dL (74-106); Potassium 5.1 mmol/L (3.5-5.1); Sodium Level 138 mmol/L (136-145)
[2021-03-20 04:36] LABS: Absolute Lymphocyte Count 0.67 X10^3/uL (0.83-4.51); Absolute Neutrophil Count 30.6 X10^3/uL (2.0-7.7); Basophil# 0.16 X10^3/uL; Basophil% 0.5 % (0-1); Hematocrit 37.7 % (40-54); Hemoglobin 10.9 g/dL (13.0-16.5); Lymphocyte # 0.67 X10^3/ul (0.83-4.51); Mean Corp Hgb Conc 28.9 g/dL (32-36); Mean Corpuscular Hgb 29.6 pg (27.0-32.0); Mean Corpuscular Volume 102.4 fL (80-94); Mean Platelet Vol. 9.3 fl (6.2-12.0); Monocyte# 1.45 X10^3/uL; Monocyte% 4.3 % (0-10); NRBC Flagged by Analyzer 0 % (0-5); Neutrophil # 30.63 X10^3/uL (2.7-7.7); Neutrophil % 89.8 % (47-70); POSITIVE COUNT YES; POSITIVE DIFFERENTIAL YES; Platelet Count 451 K/mm3 (150-450); RBC Distribution Width CV 13.2 % (11.6-14.6); RBC Distribution Width SD 49.4 fl (35.1-43.9); Red Blood Count 3.68 M/mm3 (4.6-6.2); White Blood Count 34.1 K/mm3 (4.4-11.0)
[2021-03-20 04:48] LABS: Differential Indicated SCAN CRITERIA MET
[2021-03-20] MEDS: Amiodarone 360 MG in Dextrose 5% Viaflo Bag 192.8 ML 16.7 MG CONT INF ×2 (06:16→17:37)
[2021-03-20] MEDS: 0.9% Normal Saline 1,000 ML 150 ML IV (06:18)
[2021-03-20] MEDS: Ipratropium/Albuterol Sulfate 3 ML AMPUL.NEB INHALATION ×3 (06:35→19:28)
--- NOTE | 2021-03-20 07:45 | CON.PCM.CC_ITS ---
Assessment & Plan Assessment/Plan (1) Pleural effusion, right: PLAN: RECOMMENDATIONS: 1. Continue patient on assist control mode of mechanical ventilation. 2. Wean FiO2 and PEEP to maintain saturations at or above 90%. 3. Proceed with ultrasound-guided thoracentesis. 4. Continue antimicrobials as ordered. 5. Continue bronchodilator therapy. 6. Medical management of SVT per cardiology recommendations. 7. Continue appropriate DVT and GI prophylaxis. IMPRESSIONS: 1. Acute combined respiratory failure Likely secondary to underlying pulmonary infectious etiology with right-sided complicated pleural space and concern for possible parapneumonic effusion versus empyema. The patient decompensated from a respiratory perspective, ultimately requiring intubation on March 20. The patient will be continued on assist control mode of mechanical ventilation. FiO2 will be weaned as tolerated. Plan to proceed with ultrasound-guided thoracentesis. In the interim, broad-spectrum antimicrobials will be continued. 2. Sepsis Sepsis due to pneumonia with complicated pleural space suggestive of parapne umonic effusion versus empyema with acute sepsis related organ dysfunction as evidenced by altered mentation and acute respiratory failure requiring invasive mechanical ventilatory support. Continue supportive measures and antimicrobials as noted above. The patient is currently hemodynamically stable. 3. Questionable obstructive lung disease Although the patient did present to the pulmonary medicine clinic in April 2020, he failed to complete pulmonary function studies and never followed up. For now, it is reasonable to continue bronchodilator therapy. 4. Supraventricular tachycardia Continue medical management per cardiology recommendations. TIME: 42 minutes of critical care time, inclusive of procedures, was spent addressing the patient's acute combined respiratory failure, sepsis related to pneumo kim/parapneumonic effusion versus empyema, questionable COPD, supraventricular tachycardia, review of all data and collaboration with the care team. ([id number]) HPI Consult Data Date of Consult: 03/20/21 HPI Narrative Reason for Consultation: Pleural effusion HPI Narrative: The patient is a 70-year-old male, with a history as outlined below, who presented to the emergency department on March 19 with complaints of dyspnea. The patient was seen on one occasion in the pulmonary medicine clinic in April 2020 after he was referred for the evaluation of COPD. The patient has a smoking history of 50 pack years, having quit completely in March 2020. 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 In addition to his personal smoking history, the patient does report having grown up in a smoking household. Pulmonary function studies, 6-minute walk test and low-dose CT screening of the chest was ordered at that office visit. However, the patient failed to complete any of the testing and never followed up. On presentation to the emergency department, the patient was noted to be afebrile but was notably tachycardic and hypotensive. The patient was tachypneic as well and hypoxemic. Initial laboratory evaluation revealed an elevated white blood cell count to 38,000. Platelet count was elevated to 530,000. Chemistry profile was notable for a sodium of 132, chloride of 94 and BUN of 65. Lactate was elevated to 2.1. CTA chest showed no evidence for pulmonary embolism. However, there was evidence of a large loculated right- sided pleural effusion. Surface echocardiogram revealed normal LV size and function with an ejection fraction of 50%. Pulmonary artery systolic pressure was estimated to be 50 mmHg. Rapid coronavirus antigen testing was negative. The patient was placed on antimicrobials. EKG was consistent with SVT. Adenosine an attempted cardioversion was unsuccessful. The patient was subsequently placed on Cardizem and amiodarone. On my evaluation of the patient this morning, he was notably somnolent with very little response to verbal and tactile stimulation. Arterial blood gas was obtained and revealed a pH of 7.08 with a PCO2 of 90 and PO2 of 58. The patient was subsequently placed on AVAPS therapy with repeat ABG approximately 1 hour later showing little change in the patient's acid-base status. Therefore, the patient's family was contacted who confirmed his CODE STATUS to be full code. The decision was then made at that time to proceed with intubation. Intubation Indication: Respiratory failure Consent was obtained from: Family The patient was placed in the appropriate sniffing position. Preoxygenated sedation via BiPAP was provided for a minimum of 3 minutes. The patient had continuous cardiac as well as pulse oximetry monitoring during the procedure. Procedure sedation was provided by the administration of 2 mg of Versed, 20 mg of etomidate. Direct laryngoscopy was then performed using a number 4 MAC blade, which revealed a grade 1 view. A 7.5 mm endotracheal tube was visualized advancing between the cords to the level of 25 cm at the lip. The stylette was then removed and discarded. Tube placement was confirmed by fogging in the tube along with equal and bilateral breath sounds. Colorimetric change was visualized on the CO2 meter. The cuff was then inflated and the tube secured using a commercially available device. A good pulse oximetry waveform was seen on the monitor throughout the procedure. A portable chest x-ray has been ord ered to confirm appropriate placement. The patient tolerated the procedure well. FORMERLY [facility], 1928–1983 Medical History Alcohol abuse Atrial fibrillation (03/19/21) COPD (chronic obstructive pulmonary disease) Former smoker Vision loss of left eye Vision loss of right eye Home Medications albuterol sulfate 90 mcg/actuation aerosol inhaler 2 puff INHALATION Q4H PRN #8.5 g 05/23/20 [Rx Last Taken 03/18/21] Allergy/AdvReac Type Severity Reaction Status Date / Time No Known Allergies Allergy Verified 03/19/21 10:00 Surgical History History of suburethral sling procedure Social History Smoking Status: Former smoker quit date: 03/30/20 pack-years: 50 Tobacco: How many years used: 50 ROS Review of Systems ROS Unobtainable: due to encephalopathy and due to mental status Physical Exam Const General Appearance: lethargic and ill appearing Orientation / Consciousness: confused and disoriented Exam Limitations: altered mental status Nutritional Appearance: thin HEENT normocephalic and head/scalp atraumatic Eyes PERRL, EOMs intact bilaterally and conjunctivae normal Neck supple General: trachea midline Chest inspection of chest normal Resp Effort and Inspection: tachypneic and labored Auscultation: rales and diminished lung sounds; Negative for rhonchi or wheezes Percussion: dullness Upper: right and Lower: right Cardio S1 normal heart sound and S2 normal heart sound Rate: tachycardic GI normal to inspection, nondistended, normoactive bowel sounds Extremity no clubbing, cyanosis or edema Skin no rashes or lesions noted Neuro no focal motor deficits Psych Mood & Affect: flat affect Medical Records Data Medical Nutrition Assessment Dietitian: Malnutrition Criteria Met Start: 03/19/21 16:28 Freq: Status: Active Protocol: Document 03/19/21 16:00 ELLEN (Rec: 03/19/21 16:28 SLA [id number]) Nutrition Malnutrition Evidence of Malnutrition Exists Yes Malnutrition (severe): Acute Illness/Injury Evidenced By Suboptimal Energy Intake ( Severe),Weight Loss (Severe), Physical Changes (Severe) Clinical Problem Acute Disease or Injury Related Malnutrition Etiology related to sepsis/resp failure w/ pt not able to consume adequate nutrition to meet est nutritional needs Signs/Symptoms as evidenced by <50% po intake x >5 days and wt loss of 5.8% x 1 week prior to admission. (Pt appears to have low muscle/fat stores, ie temporal / orbital regions, clavicles, legs and arms look very depleted) Status Active Problem Recommendation Dietitian Recommendations/Changes Will change diet to Regular w/ fortified foods at meals for increased calories/nutrition if consumed. Lab / Micro Data Result Diagrams: 03/20/21 04:10 03/20/21 04:10 Labs: Laboratory Results - last 24 hr 03/19/21 09:35: WBC 38.7 H*, RBC 4.43 L, Hgb 13.1, Hct 41.9, MCV 94.6 H, MCH 29.6, MCHC 31.3 L, RDW Std Deviation 43.8, RDW Coeff of Vita 12.7, Plt Count 530 H, MPV 10.1, Immature Gran % (Auto) 1.500 H, Neut % (Auto) 91.8 H, Lymph % (Auto ) 2.5 L, [place] % (Auto) 4.0, Eos % (Auto) 0.0, Baso % (Auto) 0.2, Absolute Neuts (auto) 35.5 H, Absolute Lymphs (auto) 0.95, Nucleated RBC % 0, Differential Comment COMMENT, Diff Path Review Reviewed, Platelet Estimate MOD INC, RBC Morphology NORM C+C 03/19/21 09:35: PT 16.4 H, INR 1.4, APTT 40.3 H 03/19/21 09:35: Sodium 132 L, Potassium 4.5, Chloride 94 L, Carbon Dioxide 31.0, Anion Gap 7, BUN 65 H, Creatinine 0.98, Estim Creat Clear Calc 57.05, Est GFR (MDRD) Af Amer 98, Est GFR (MDRD) Non-Af 81, BUN/Creatinine Ratio 66.5 H, Glucose 115 H, Calcium 9.5, Magnesium 3.1 H, Total Bilirubin 0.80, AST 29, ALT 27, Alkaline Phosphatase 111, Troponin I High Sens 35, Total Protein 7.7, Albumin 2.0 L, Globulin 5.7 H, Albumin/Globulin Ratio 0.4 L 03/19/21 09:35: Lactic Acid 2.1 H* 03/19/21 14:10: Lactic Acid 1.6 03/19/21 14:55: Troponin I High Sens 30 03/19/21 18:50: Troponin I High Sens 30 03/20/21 04:10: WBC 34.1 H*, RBC 3.68 L, Hgb 10.9 L, Hct 37.7 L, MCV 102.4 H D, MCH 29.6, MCHC 28.9 L D, RDW Std Deviation 49.4 H, RDW Coeff of Vita 13.2, Plt Count 451 H, MPV 9.3, Immature Gran % (Auto) 3.400 H, Neut % (Auto) 89.8 H, Lymph % (Auto) 2.0 L, [place] % (Auto) 4.3, Eos % (Auto) 0.0, Baso % (Auto) 0.5, Absolute Neuts (auto) 30.6 H, Absolute Lymphs (auto) 0.67 L, Nucleated RBC % 0, Diff Path Review October03/20/21 04:10: Sodium 138, Potassium 5.1, Chloride 108 H, Carbon Dioxide 26.0, Anion Gap 4 L, BUN 51 H, Creatinine 0.71, Estim Creat Clear Calc 57.44, Est GFR (MDRD) Af Amer 141, Est GFR (MDRD) Non-Af 116, BUN/Creatinine Ratio 71.5 H, Glucose 137 H, Calcium 8.0 L Micro: Microbiology 03/20/21 00:30 Urine, Random Legionella Antigen - Final 03/20/21 00:30 Urine, Random Streptococcus pneumoniae Antigen (M - Final 03/19/21 10:05 Nasal Secretion SARS-CoV-2 Antigen (Rapid) - Final Radiology Impression Chest X-Ray 03/19/21 09:51 IMPRESSION: Moderate size right pleural effusion with right basilar infiltration and/or atelectasis. Hyperinflation. Electronically Signed: Juan Crum MD at 11:13 EDT , Service support , Chest CTA 03/19/21 11:07 IMPRESSION: Large right pleural effusion with loculation. Fluid is seen within the minor fissure. Volume loss in the right upper lobe. Underlying emphysematous changes. Electronically Signed: Juan Crum MD at 12:23 EDT , Service support , Echocardiogram 03/19/21 14:47 Interpretation Summary Normal LV size. Left ventricular systolic function is normal. The estimated ejection fraction is 50 %. Pulmonary artery systolic pressure is 50 mmHg. Ordering Physician: Kailey Aguilar Referring Physician: ADAM PCP Performed By: Juliet Wing, ALONRDA, RVT Charges/Coding Procedures Hospitalists Procedures: [id number] Critial Care 1st Hr
--- NOTE | 2021-03-20 08:36 | US_ITS ---
PROCEDURE: ULTRASOUND GUIDED THORACENTESIS. DATE: 03/20/2021. INDICATION: Male, 70 years old. Loculated right pleural effusion. PHYSICIAN: Juan Crum M.D. PROCEDURE: The risks, benefits, and alternatives to the procedure were explained to the patient. The specific risks of bleeding, infection, and pneumothorax requiring chest tube insertion were discussed and accepted. Written informed consent was obtained. Ultrasonographic evaluation of the right lower pleural space was carried out. An adequate pocket was identified. The patient was placed in the sitting, upright position. The overlying skin was prepped and draped in sterile fashion. 1% lidocaine was administered subcutaneously for local anesthesia. Under ultrasound guidance, a 5 [place] thoracentesis needle/catheter system was advanced into the right posterior lower pleural fluid collection. Approximately 130 mL of dark wali-colored fluid was drained. The catheter was removed, and a sterile dressing was applied. A specimen was collected and sent to the laboratory for analysis, as requested by the referring clinician. The patient tolerated the procedure well. A chest x-ray was ordered. US/Thoracentesis W US IMPRESSION: Ultrasound-guided right thoracentesis. Electronically Signed: Juan Crum MD at 14:55 EDT , Service support ,
[2021-03-20 09:01] LABS: Allen Test Positive; Base Excess -3 mmol/L (-2 to +2); Blood Gas Specimen Type ART; O2 Delivery Device Cannula; PO2 58 mmHG (75-100); SITE L Radial; SO2 76 % (95-99); Total Carbon Dioxide 30 mmol/L; pCO2 90.2 mmHg (35-45); pH 7.08 (7.35-7.45)
--- NOTE | 2021-03-20 09:52 | CON.PCM.CA_ITS ---
Assessment & Plan Assessment/Plan (1) Tachycardia: PLAN: He presented with evidence of a supraventricular tachycardia which appears to have resolved with the intravenous amiodarone and the diltiazem. I would recommend continuing that for now without making any major changes. He will be transitioned over time to oral medications. HPI Consult Data Date of Consult: 03/20/21 HPI Narrative HPI Narrative: MAGO GILLIAM, is a 70 M who presents to the emergency room with complaints of shortness of breath which has gradually been getting worse. He apparently has not been taking very good care of himself. He denies any chest pain or shortness of breath or paroxysmal nocturnal dyspnea palpitations dizziness nausea vomiting. In the emergency room he was noted to have an e levated heart rate of approximately 180 bpm. He was initially administered intravenous adenosine which did not improve his symptoms or the EKG and also underwent a DC cardioversion which only reverted back to the narrow complex tachycardia. I was called for advice and further evaluation. He was started on an amiodarone drip and then I also started him later on intravenous diltiazem. His evaluation was significant for an elevated white count as well as a CT scan of the chest showing a large right pleural effusion with loculation. He was admitted to the intensive care unit. An echocardiogram performed demonstrated low normal ejection fraction. This morning he appears to have converted to sinus rhythm and still looks frail and is asymptomatic. [facility] Medical History Alcohol abuse Atrial fibrillation (03/19/21) COPD (chronic obstructive pulmonary disease) Former smoker Vision loss of left eye Vision loss of right eye Home Medications albuterol sulfate 90 mcg/actuation aerosol inhaler 2 puff INHALATION Q4H PRN #8.5 g 05/23/20 [Rx Last Taken 03/18/21] Allergy/AdvReac Type Severity Reaction Status Date / Time No Known Allergies Allergy Verified 03/19/21 10:00 Surgical History History of suburethral sling procedure Social History Smoking Status: Former smoker quit date: 03/30/20 pack-years: 50 Tobacco: How many years used: 50 ROS Constitutional Constitutional: Reports anorexia, poor appetite, weakness and weight loss Eyes Eyes: Reports systems reviewed and no addt'l complaints, except as documented ENT HEENT: Reports systems reviewed and no addt'l complaints, except as documented Cardiovascular Cardiovascular: Denies chest pain at rest, chest pain with activity, dyspnea at rest, dyspnea on exertion, edema, palpitations or paroxysmal nocturnal dyspnea Respiratory/Chest Respiratory/Chest: Denies dyspnea on exertion, productive cough, shortness of breath at rest or shortness of breath with exertion Gastrointestinal Gastrointestinal: Denies change in bowel habits, nausea, vomiting or weight changes Genitourinary Genitourinary: Denies difficulty urinating Musculoskeletal Musculoskeletal: Denies joint stiffness or muscle weakness Integumentary Integumentary: Denies lesions Neurologic Neurologic: Denies dizziness or syncope Psychiatric Psychiatric: Denies anxiety Endocrine Endocrinology: Denies excessive sweating or fatigue Hematologic/Lymphatic Hematologic/Lymphatic: Denies anemia Allergic/Immunologic Allergic/Immunologic: Denies seasonal rhinorrhea Physical Exam Const no apparent distress General Appearance: cooperative and uncooperative Orientation / Consciousness: awake HEENT hearing grossly normal bilaterally Head and Scalp: atraumatic Eyes EOMs intact bilaterally Neck General: normal visual inspection Chest inspection of chest normal and palpation of chest normal Resp normal respiratory effort Auscultation: clear to auscultation bilaterally Cardio regular rate, regular rhythm, S1 normal heart sound and S2 normal heart sound Jugular Venous Distention: JVD GI normal to inspection, nondistended, normoactive bowel sounds Extremity normal capillary refill and no pedal edema Peripheral Pulses: Yes pulses 2+ throughout and femoral pulses present Skin no rashes or lesions noted Neuro oriented x3 and CN's II-XII intact bilaterally Psych Appearance: grossly normal and appropriate Objective Data Vital Signs: Vital Signs Temp Pulse Resp BP Pulse Ox 98.1 F 78 27 H 103/50 L 92 03/20/21 00:00 03/20/21 07:00 03/20/21 07:00 03/20/21 07:00 03/20/21 07:00 Oxygen Flow Rate (L/min) 5 Oxygen Delivery Method Nasal Cannula Weight: 128 lb 6.594 oz Body Mass Index (BMI) 18.1 Intake & Output: Intake and Output for Last 24 Hours 03/18/21 03/19/21 03/20/21 23:59 23:59 23:59 Intake Total 5888.5 / 5898.5 1426.23 / 1426.23 Output Total 100 / 150 50 / 50 Balance 5788.5 / 5748.5 1376.23 / 1376.23 Lab / Micro Data Result Diagrams: 03/20/21 04:10 03/20/21 04:10 Labs: Laboratory Results - last 24 hr 03/19/21 09:35: WBC 38.7 H*, RBC 4.43 L, Hgb 13.1, Hct 41.9, MCV 94.6 H, MCH 29.6, MCHC 31.3 L, RDW Std Deviation 43.8, RDW Coeff of Vita 12.7, Plt Count 530 H, MPV 10.1, Immature Gran % (Auto) 1.500 H, Neut % (Auto) 91.8 H, Lymph % (Auto) 2.5 L, [place] % (Auto) 4.0, Eos % (Auto) 0.0, Baso % (Auto) 0.2, Absolute Neuts (auto) 35.5 H, Absolute Lymphs (auto) 0.95, Nucleated RBC % 0, Differential Comment COMMENT, Diff Path Review Reviewed, Platelet Estimate MOD INC, RBC Morphology NORM C+C 03/19/21 09:35: PT 16.4 H, INR 1.4, APTT 40.3 H 03/19/21 09:35: Sodium 132 L, Potassium 4.5, Chloride 94 L, Carbon Dioxide 31.0, Anion Gap 7, BUN 65 H, Creatinine 0.98, Estim Creat Clear Calc 57.05, Est GFR (MDRD) Af Amer 98, Est GFR (MDRD) Non-Af 81, BUN/Creatinine Ratio 66.5 H, Glucose 115 H, Calcium 9.5, Magnesium 3.1 H, Total Bilirubin 0.80, AST 29, ALT 27, Alkaline Phosphatase 111, Troponin I High Sens 35, Total Protein 7.7, Albumin 2.0 L, Globulin 5.7 H, Albumin/Globulin Ratio 0.4 L 03/19/21 09:35: Lactic Acid 2.1 H* 03/19/21 14:10: Lactic Acid 1.6 03/19/21 14:55: Troponin I High Sens 30 03/19/21 18:50: Troponin I High Sens 30 03/20/21 04:10: WBC 34.1 H*, RBC 3.68 L, Hgb 10.9 L, Hct 37.7 L, MCV 102.4 H D, MCH 29.6, MCHC 28.9 L D, RDW Std Deviation 49.4 H, RDW Coeff of Vita 13.2, Plt C ount 451 H, MPV 9.3, Immature Gran % (Auto) 3.400 H, Neut % (Auto) 89.8 H, Lymph % (Auto) 2.0 L, [place] % (Auto) 4.3, Eos % (Auto) 0.0, Baso % (Auto) 0.5, Absolute Neuts (auto) 30.6 H, Absolute Lymphs (auto) 0.67 L, Nucleated RBC % 0, Diff Path Review October03/20/21 04:10: Sodium 138, Potassium 5.1, Chloride 108 H, Carbon Dioxide 26.0, Anion Gap 4 L, BUN 51 H, Creatinine 0.71, Estim Creat Clear Calc 57.44, Est GFR (MDRD) Af Amer 141, Est GFR (MDRD) Non-Af 116, BUN/Creatinine Ratio 71.5 H, Glucose 137 H, Calcium 8.0 L Micro: Microbiology 03/20/21 00:30 Urine, Random Legionella Antigen - Final 03/20/21 00:30 Urine, Random Streptococcus pneumoniae Antigen (M - Final 03/19/21 10:05 Nasal Secretion SARS-CoV-2 Antigen (Rapid) - Final ABG Data ABG results: ABG 03/20/21 08:56 Specimen Type ART Sample Site L Radial pH 7.08 L* Bicarbonate Actual 27.0 H Total CO2 30 Base Excess -3 L O2 Saturation 76 L ABG pCO2 90.2 H* ABG pO2 58 L [place] Test Positive O2 Delivery Device Cannula Liter Flow 5.0 Crit Call To/Read Back Yes Blood Gas Notified Whom DR MARKS Cardiology Labs/Tests 03/19/21 09:35: WBC 38.7 H*, RBC 4.43 L, Hgb 13.1, Hct 41.9, MCV 94.6 H, MCH 29.6, MCHC 31.3 L, Plt Count 530 H, MPV 10.1, Immature Gran % (Auto) 1.500 H, Neut % (Auto) 91.8 H, Lymph % (Auto) 2.5 L, [place] % (Auto) 4.0, Eos % (Auto) 0.0, Baso % (Auto) 0.2, Absolute Neuts (auto) 35.5 H, Nucleated RBC % 0 03/19/21 09:35: PT 16.4 H, INR 1.4, APTT 40.3 H 03/19/21 09:35: Sodium 132 L, Potassium 4.5, Chloride 94 L, Carbon Dioxide 31.0, Anion Gap 7, BUN 65 H, Creatinine 0.98, Est GFR (MDRD) Af Amer 98, Est GFR (MDRD) Non-Af 81, BUN/Creatinine Ratio 66.5 H, Glucose 115 H, Calcium 9.5, Magnesium 3.1 H, Total Bilirubin 0.80 03/19/21 09:35: Lactic Acid 2.1 H* 03/19/21 14:10: Lactic Acid 1.6 03/20/21 04:10: WBC 34.1 H*, RBC 3.68 L, Hgb 10.9 L, Hct 37.7 L, MCV 102.4 H D, MCH 29.6, MCHC 28.9 L D, Plt Count 451 H, MPV 9.3, Immature Gran % (Auto) 3.400 H, Neut % (Auto) 89.8 H, Lymph % (Auto) 2.0 L, [place] % (Auto) 4.3, Eos % (Auto) 0.0, Baso % (Auto) 0.5, Absolute Neuts (auto) 30.6 H, Nucleated RBC % 0 03/20/21 04:10: Sodium 138, Potassium 5.1, Chloride 108 H, Carbon Dioxide 26.0, Anion Gap 4 L, BUN 51 H, Creatinine 0.71, Est GFR (MDRD) Af Amer 141, Est GFR (MDRD) Non-Af 116, BUN/Creatinine Ratio 71.5 H, Glucose 137 H, Calcium 8.0 L 03/20/21 08:56: pH 7.08 L*, Bicarbonate Actual 27.0 H, Base Excess -3 L, O2 Saturation 76 L, ABG pCO2 90.2 H*, ABG pO2 58 L, [place] Test Positive Rhythm: EKG: ECHO: Stress Test: Cardiac Cath: PCI: CT Surgery: Holter monitor: EPS: PPM: CXR: Chest CT Scan: Radiography Diagnostic Testing: Radiology Impression Chest X-Ray 03/19/21 09:51 IMPRESSION: Moderate size right pleural effusion with right basilar infiltration and/or atelectasis. Hyperinflation. Electronically Signed: Juan Crum MD at 11:13 EDT , Service support , Chest CTA 03/19/21 11:07 IMPRESSION: Large right pleural effusion with loculation. Fluid is seen within the minor fissure. Volume loss in the right upper lobe. Underlying emphysematous changes. Electronically Signed: Juan Crum MD at 12:23 EDT , Service support , Echocardiogram 03/19/21 14:47 Interpretation Summary Normal LV size. Left ventricular systolic function is normal. The estimated ejection fraction is 50 %. Pulmonary artery systolic pressure is 50 mmHg. Ordering Physician: Kailey Aguilar Referring Physician: NO PCP Performed By: Juliet Wing, ALONDRA, RVT
[2021-03-20 10:16] LABS: Allen Test Positive; Base Excess -3 mmol/L (-2 to +2); Bicarbonate 27.6 mmol/L (22-26); Blood Gas Specimen Type ART; Comment AVAPS; FI02 100; O2 Delivery Device BiPAP; PEEP 10; PO2 166 mmHG (75-100); RR 14; SITE L Radial; SO2 99 % (95-99); Total Carbon Dioxide 31 mmol/L; Vt 400; pCO2 94.2 mmHg (35-45); pH 7.08 (7.35-7.45)
--- NOTE | 2021-03-20 11:24 | CASEMGMT ---
SW spoke w/pt's brother Keegan, mom Jennifer and son Densy w/RN. Family has decided to have pt intubated. SW offered support to family. SW explained to family that if decisions need made, it would be son Denys to make decisions. SW explained to Denys that he can of course talk over any decisions with family, but without POA papers he would be the decision maker. Pt does have another son, Chava, however as per family he was caught in a shooting three years ago and shot in the head, and does not process things properly. As per family, pt is normally independent, lives home alone. Pt's brother states that he was to go to the doctor on Friday, ended up in the hospital instead. SW gave family this SW's number, and the SW's number of who will be here the rest of the week, should they need anything. PILI will continue to follow. CASSI Antonio
[2021-03-20] MEDS: Midazolam 2 MG/2 ML Syringe IV (11:35)
[2021-03-20] MEDS: Etomidate 20 MG/10 ML Vial IV (11:37)
--- NOTE | 2021-03-20 11:38 | NURSING ---
MD at bedside to intubate patient. versed, etomidate given Successful intubation at 1138 with b/l breath sounds and positive color change. ETT size 7.5, 25 at lip
[2021-03-20] MEDS: Propofol 10MG/Ml 1,000 MG/100 ML Bottle 3.5 MG CONT INF (11:40)
--- NOTE | 2021-03-20 11:58 | RAD_ITS ---
STUDY: X-RAY CHEST REASON FOR EXAM: Male, 70 years old. line placement post intubation TECHNIQUE: Single AP portable view of the chest. COMPARISON: 03/19/2021 FINDINGS: Interval placement of endotracheal tube with tip approximately 5 cm above the nuno. Interval placement nasogastric tube with tip below the diaphragm. There is hyperinflation of the lungs consistent with chronic obstructive lung disease (COPD). Increased in size the right-sided pleural effusion which is now large in size. Normal size heart. Normal mediastinum and genaro. Normal visualized pulmonary arteries. Normal visualized aortic arch and descending thoracic aorta. Normal visualized thoracic spine. Normal visualized ribs, clavicles, and shoulders. There is no demonstrated abnormality of the visualized soft tissue structures of the upper abdomen. RAD/Chest 1 View (Portable) IMPRESSION: 1. Interval placement of endotracheal tube with tip above the nuno. 2. Interval placement of nasogastric tube with the tip below the diaphragm. 3. Worsening right-sided pleural effusion which is now large in size. Electronically Signed: Wilfrido Baxter MD at 12:28 EDT Tel , Service support ,
[2021-03-20] MEDS: Famotidine 20 MG Tablet GT ×2 (12:29→21:23)
[2021-03-20 13:03] LABS: CPK Total, Creatine Kinase 115 U/L (39-308); Triglycerides 91 mg/dL
[2021-03-20 13:21] LABS: Blood Gas Specimen Type VEN; O2 Delivery Device Adult Vent; PEEP 8; RR 14; SITE L Radial; VBG BASE EXCESS -3 mmol/L (-1.0-3.5); VBG Bicarbonate 25 mmol/L (22-26); VBG PO2 59 mmHg (25-40); VBG SO2 84 % (50-70); VBG TCO2 27 mmol/L (23-33); VBG pCO2 59.1 mmHg (41-51); VBG pH 7.23 (7.32-7.42)
[2021-03-20 13:21] LABS: ALB/GLOB Ratio 0.3 RATIO (0.9-2.4); Globulin 4.3 g/dL (2.2-4.2); LDH 182 U/L (87-241); Protein, Total 5.7 g/dL (6.4-8.2)
[2021-03-20 13:29] LABS: Pathologist Review Reviewed
--- NOTE | 2021-03-20 14:29 | RAD_ITS ---
STUDY: X-RAY CHEST REASON FOR EXAM: Male, 70 years old. Immediately post thoracentesis for pneumothorax TECHNIQUE: AP inspiration and expiration views following a right thoracentesis. COMPARISON: Comparison is made with prior study done earlier today. FINDINGS: The patient is status post right thoracentesis. There is no evidence of pneumothorax. Persistent loculated fluid is seen in the right minor fissure as well as infiltrate in the right lower lobe. RAD/Chest Insp/Exp 2 View IMPRESSION: Status post right thoracentesis. There is no evidence of pneumothorax. Electronically Signed: Juan Crum MD at 14:57 EDT , Service support ,
[2021-03-20 14:41] LABS: Cytology, Body Fluid / CSF SEE PATHOLOGY REPORT
[2021-03-20 15:03] LABS: Body Fluid Mononuclear WBC # 0.115 10^3/uL; Body Fluid Mononuclear WBC % 10.1 %; Body Fluid Polynuclear WBC # 1.024 10^3/uL; Body Fluid Polynuclear WBC % 89.9 %; White Blood Count/Body Fluid 1.139 10^3/uL
[2021-03-20] MEDS: Lidocaine 2% (20 ml mdv) 20 ML Vial (15:16)
[2021-03-20 15:21] LABS: Appearance/Body Fluid SL CLDY; Auto B Fluid Analyzer BKGD Ct COUNTS W/IN LIMITS (W/IN LIMITS); Color/Body Fluid YELLOW; Source- Body Fluid THORACENTESIS
[2021-03-20 15:25] LABS: Red Cell Count/Body Fluid 6 /mm3
[2021-03-20 15:37] LABS: Body Fluid QC Type(s) BF1Q; Lymphocytes 10 %; Neutrophil (Segs) 90 %
[2021-03-20 15:38] LABS: Glucose, Body Fluid < 1 mg/dL (40-70); LDH,Body Fluid 2758 Units/l (Not Establ.); Protein, Body Fluid 4.5 g/dL (Not Establ.)
--- NOTE | 2021-03-20 17:20 | PN.HOSP_ITS ---
Subjective Subjective Patient was seen and examined today, when I examined the patient, he was not on mechanical ventilation, he was sleeping and quiet. Later on this morning, he was intubated due to hypercapnia. He subsequently underwent an ultrasound guided thoracentesis with removal of 130 cc of fluid, it appears from the analysis of the fluid that it is an exudate quite possibly an empyema. Patient is currently on broad-spectrum antibiotics. Objective Data Objective Data Vital Signs: Vital Signs Temp Pulse Resp BP Pulse Ox 100.0 F H 70 14 88/49 L 100 03/20/21 16:00 03/20/21 16:00 03/20/21 16:00 03/20/21 16:00 03/20/21 16:00 Oxygen Flow Rate (L/min) 4 Oxygen Delivery Method [3] Mechanical Ventilator Oxygen Delivery Method [2] Mechanical Ventilator Oxygen Delivery Method [1 ( Mechanical Ventilator Initial Baseline)] Oxygen Delivery Method Mechanical Ventilator Weight: 58.247 kg Body Mass Index (BMI) 18.1 Intake & Output: Intake and Output for Last 24 Hours 03/18/21 03/19/21 03/20/21 23:59 23:59 23:59 Intake Total 5888.5 / 5898.5 2536.18 / 2536.18 Output Total 100 / 150 180 / 180 Balance 5788.5 / 5748.5 2356.18 / 2356.18 Medical Nutrition Assessment Dietitian: Malnutrition Criteria Met Start: 03/19/21 16:28 Freq: Status: Active Protocol: Document 03/20/21 16:18 ELLEN (Rec: 03/20/21 16:18 ELLEN [id number]) Nutrition Malnutrition Evidence of Malnutrition Exists Yes Malnutrition (severe): Acute Illness/Injury Evidenced By Suboptimal Energy Intake ( Severe),Weight Loss (Severe), Physical Changes (Severe) Clinical Problem Acute Disease or Injury Related Malnutrition Etiology related to sepsis/resp failure w/ pt not able to consume adequate nutrition to meet est nutritional needs Signs/Symptoms as evidenced by <50% po intake x >5 days and wt loss of 5.8% x 1 week prior to admission. (Pt appears to have low muscle/fat stores, ie temporal / orbital regions, clavicles, legs and arms look very depleted) Status Active Problem Recommendation Dietitian Recommendations/Changes Rec Vital AF 1.2 at 20 ml/hr w / 25 ml water every 4 hours to provide ~ 576 clayton/ 36 gm pro/ 539 ml free water/day. Will adjust tf rate daily d/t concerns of refeeding syndrome . Will check magnesium and phosphorous in the morning. Lab / Micro Data Result Diagrams: 03/20/21 04:10 03/20/21 04:10 Labs: Laboratory Results - last 24 hr 03/19/21 18:50: Troponin I High Sens 30 03/20/21 04:10: WBC 34.1 H*, RBC 3.68 L, Hgb 10.9 L, Hct 37.7 L, MCV 102.4 H D, MCH 29.6, MCHC 28.9 L D, RDW Std Deviation 49.4 H, RDW Coeff of Vita 13.2, Plt Count 451 H, MPV 9.3, Immature Gran % (Auto) 3.400 H, Neut % (Auto) 89.8 H, Lymph % (Auto) 2.0 L, [place] % (Auto) 4.3, Eos % (Auto) 0.0, Baso % (Auto) 0.5, Absolute Neuts (auto) 30.6 H, Absolute Lymphs (auto) 0.67 L, Nucleated RBC % 0, Diff Path Review Reviewed 03/20/21 04:10: Sodium 138, Potassium 5.1, Chloride 108 H, Carbon Dioxide 26.0, Anion Gap 4 L, BUN 51 H, Creatinine 0.71, Estim Creat Clear Calc 57.44, Est GFR (MDRD) Af Amer 141, Est GFR (MDRD) Non-Af 116, BUN/Creatinine Ratio 71.5 H, Glucose 137 H, Calcium 8.0 L 03/20/21 12:35: Lactate Dehydrogenase 182, Total Protein 5.7 L, Globulin 4.3 H, Albumin/Globulin Ratio 0.3 L 03/20/21 12:35: Total Creatine Kinase 115, Triglycerides 91 03/20/21 14:13: Fluid Glucose < 1 L*, Fluid Total Protein 4.5, Fluid LDH 2758 03/20/21 14:13: Fluid Source THORACENTESIS, Fluid Color YELLOW, Fluid Appearance SL CLDY, Fluid WBC 1.139, Fluid RBC 6, Fluid Tot Cell Count 1.140, Fld Polynuclear WBCs # 1.024, Fld Polynuclear WBCs % 89.9, Fluid Mononuclear WBCs 0.115, Fld Mononuclear WBCs % 10.1, Fluid Neutrophils 90, Fluid Lymphocytes 10, Fl Pathologist Comment May follow, Fluid Comment 2 SEE COMMENT Micro: Microbiology 03/20/21 14:13 Fluid - Other Gram Stain - Final 03/20/21 11:44 Sputum, Induced/Lukens Gram Stain - Final 03/20/21 00:30 Urine, Random Legionella Antigen - Final 03/20/21 00:30 Urine, Random Streptococcus pneumoniae Antigen (M - Final 03/19/21 10:05 Nasal Secretion SARS-CoV-2 Antigen (Rapid) - Final ABG Data ABG results: ABG 03/20/21 03/20/21 03/20/21 08:56 10:07 13:15 Specimen Type ART ART CM Sample Site L Radial L Radial L Radial pH 7.08 L* 7.08 L* Bicarbonate Actual 27.0 H 27.6 H Total CO2 30 31 Base Excess -3 L -3 L O2 Saturation 76 L 99 O2 % 100 ABG pCO2 90.2 H* 94.2 H* ABG pO2 58 L 166 H Austin Test Positive Positive VBG pH 7.23 L VBG pO2 59 H VBG HCO3 25 VBG Total CO2 27 VBG O2 Sat (Calc) 84 H VBG Base Excess -3 L POC Mix VBG pCO2 Pt Tmp 59.1 H Respiration Rate 14 14 O2 Delivery Device Cannula BiPAP Adult Vent Liter Flow 5.0 Tidal Volume 400 POC PEEP 10 8 Crit Call To/Read Back Yes Yes Blood Gas Notified Whom DR KENDRICK MARKS Clinical Comments [facility] Radiography Diagnostic Testing: Radiology Impression Echocardiogram 03/19/21 14:47 Interpretation Summary Normal LV size. Left ventricular systolic function is normal. The estimated ejection fraction is 50 %. Pulmonary artery systolic pressure is 50 mmHg. Ordering Physician: Kailey Aguilar Referring Physician: NO PCP Performed By: Juliet Wing, ALONDRA, RVT Thoracentesis Ultrasound 03/20/21 08:36 IMPRESSION: Ultrasound-guided right thoracentesis. Electronically Signed: Juan Crum MD at 14:55 EDT , Service support , Chest X-Ray 03/20/21 11:58 IMPRESSION: 1. Interval placement of endotracheal tube with tip above the nuno. 2. Interval placement of nasogastric tube with the tip below the diaphragm. 3. Worsening right-sided pleural effusion which is now large in size. Electronically Signed: Wilfrido Baxter MD at 12:28 EDT Tel , Service support , Chest X-Ray 03/20/21 14:29 IMPRESSION: Status post right thoracentesis. There is no evidence of pneumothorax. Electronically Signed: Juan Crum MD at 14:57 EDT , Service support , Physical Exam Const Constitutional Narrative: Patient is sedated and on the ventilator General Appearance: cooperative, well kempt and well developed Orientation / Consciousness: awake, oriented to person, oriented to place and oriented to time Nutritional Appearance: cachectic HEENT normocephalic and head/scalp atraumatic Head and Scalp: normocephalic Eyes PERRL, EOMs intact bilaterally and conjunctivae normal Neck nuchal rigidity, no lymphadenopathy, supple, no JVD and thyroid normal General: trachea midline Resp normal respiratory effort, no retractions and no use of accessory muscles Resp Narrative: Decreased breath sounds are noted over the right lower lung coppola Auscultation: Negative for rales, rhonchi or wheezes Cardio regular rate, regular rhythm, S1 normal heart sound, S2 normal heart sound, no murmurs, no rub, no gallops and no clicks GI normal to inspection, nondistended, normoactive bowel sounds, soft to palpation, non-tender and non-distended Extremity no clubbing, cyanosis or edema Skin no rashes or lesions noted General Skin Exam: no breakdown Neuro oriented x3, CN's II-XII intact bilaterally, no focal motor deficits and no sensory deficits noted Sensorium / Orientation: awake and alert Speech: speech normal Psych thought process normal and affect normal Assessment & Plan Assessment/Plan (1) Pleural effusion, right: PLAN: 1. Acute combined respiratory failure secondary to community- acquired pneumonia-patient will remain on antibiotics and pulmonary medicine is participating in his care #2 right pleural effusion-possibly empyema, patient will remain on antibiotics, it may be necessary to transfer the patient to tertiary center for further care, hospital bed situation in the region however is poor and it is unlikely that we will be able to get him transferred to another hospital for care at this time. I will talk to pulmonary medicine tomorrow about whether it is necessary to transfer the patient. #3 severe protein caloric malnutrition-nutritional services is seeing patient #4 supraventricular tachycardia-patient is currently on amiodarone, he is being seen by cardiology #5 chronic obstructive pulmonary disease #6 sepsis-secondary to community-acquired pneumonia #7 community-acquired pneumonia-patient is currently on Zosyn and vancomycin-day #2 Charges/Coding Visit Charges Inpatient E&M: 27766 Subs Hosp L2
[2021-03-20] MEDS: Chlorhexidine 480 ML 15 ML PO (22:07)
[2021-03-21] VITALS (37 sets, daily range): BP systolic 90–116; BP diastolic 43–61; PULSE 66–85; RESP 14–21; TEMP 36–37.7; O2SAT 93–100
[2021-03-21] MEDS: CHLORHEXIDINE GLUC 2% CLOTH 1 EACH TOWELETTE TOPICAL (02:18)
[2021-03-21] MEDS: 0.9% Saline Lock 10 ML Syringe IV ×2 (04:37→16:08)
[2021-03-21 04:38] LABS: Phosphorus 1.7 mg/dL (2.5-4.9)
[2021-03-21 04:40] LABS: Vancomycin, Trough Level 13.1 ug/mL (5.0-15.0)
[2021-03-21] MEDS: Vancomycin IV 500 MG/100 ML BAG 100 MG IV (04:59)
[2021-03-21] MEDS: Propofol 10MG/Ml 1,000 MG/100 ML Bottle 5.3 MG CONT INF ×2 (05:00→16:52)
[2021-03-21] MEDS: Amiodarone 360 MG in Dextrose 5% Viaflo Bag 192.8 ML 16.7 MG CONT INF ×2 (05:00→19:23)
--- NOTE | 2021-03-21 05:17 | PCM.RX.CS ---
Consult Pharmacy has been consulted to manage selected antiobiotic: Vancomycin Type of Consult: Follow-up Suspected Infection: Pneumonia Prior Doses of Antibiotics Received/Current Regimen: Medications Vancomycin HCl () 500 mg in 100 mls @ 100 mls/hr IV Q12H ADI Stop: 03/21/21 06:00 Last Admin: 03/21/21 04:59 Dose: 100 mls/hr Vancomycin HCl 750 mg/ Sodium (Chloride) 265 mls @ 250 mls/hr IV Q12H [facility] Labs: Sodium 138 mmol/L (136-145) 03/20/21 04:10 Potassium 5.1 mmol/L (3.5-5.1) 03/20/21 04:10 Chloride 108 mmol/L (98-107) H 03/20/21 04:10 Carbon Dioxide 26.0 mmol/L (21.0-32.0) 03/20/21 04:10 Anion Gap 4 (5-15) L 03/20/21 04:10 BUN 51 mg/dL (7-18) H 03/20/21 04:10 Creatinine 0.71 mg/dL (0.70-1.30) 03/20/21 04:10 Est GFR (MDRD) Af Amer 141 mL/min (>60) 03/20/21 04:10 Est GFR (MDRD) Non-Af 116 mL/min (>60) 03/20/21 04:10 BUN/Creatinine Ratio 71.5 RATIO (10-20) H 03/20/21 04:10 Glucose 137 mg/dL (74-106) H 03/20/21 04:10 Vancomycin Trough 13.1 ug/mL (5.0-15.0) 03/21/21 04:05 Microbiology: Microbiology 03/20/21 14:13 Fluid - Other Gram Stain - Final 03/20/21 11:44 Sputum, Induced/Lukens Gram Stain - Final 03/20/21 00:30 Urine, Random Legionella Antigen - Final 03/20/21 00:30 Urine, Random Streptococcus pneumoniae Antigen (M - Final 03/19/21 10:05 Nasal Secretion SARS-CoV-2 Antigen (Rapid) - Final Weight used for dosin.5 kg Estimated Creatinine Clearance: 57 Goal Trough: 15-20 mcg/mL Pharmacy Plan for Drug Dosing: Vancomycin trough level of 13.1 was below target range of 15-20. Will increase dose to 750mg q12h and re-draw a trough prior to 4th dose of new regimen. Pharmacy Service will continue to monitor and adjust dosing as required. Follow-Up Labs: Trough Vancomycin Labs to be done on [date and time ordered]: 03/23/21 @4960
[2021-03-21] MEDS: TITRATION PARAMETER CHANGE 1 EACH IV (05:41)
[2021-03-21 06:32] LABS: Absolute Lymphocyte Count 0.94 X10^3/uL (0.83-4.51); Absolute Neutrophil Count 17.1 X10^3/uL (2.0-7.7); Basophil# 0.09 X10^3/uL; Basophil% 0.5 % (0-1); Eosinophil# 0.01 X10^3/uL; Eosinophils% 0.1 % (0-5); Hematocrit 32.8 % (40-54); Hemoglobin 9.7 g/dL (13.0-16.5); Lymphocyte # 0.94 X10^3/ul (0.83-4.51); Lymphocyte % 4.7 % (19-41); Mean Corp Hgb Conc 29.6 g/dL (32-36); Mean Corpuscular Hgb 29.4 pg (27.0-32.0); Mean Corpuscular Volume 99.4 fL (80-94); Mean Platelet Vol. 9.4 fl (6.2-12.0); Monocyte# 0.95 X10^3/uL; Monocyte% 4.8 % (0-10); NRBC Flagged by Analyzer 0 % (0-5); Neutrophil # 17.11 X10^3/uL (2.7-7.7); Neutrophil % 86.4 % (47-70); POSITIVE COUNT YES; Platelet Count 419 K/mm3 (150-450); RBC Distribution Width CV 13.2 % (11.6-14.6); White Blood Count 19.8 K/mm3 (4.4-11.0)
[2021-03-21 06:34] LABS: Differential Indicated SCAN CRITERIA MET
[2021-03-21 06:42] LABS: Anion Gap 4 (5-15); BUN 50 mg/dL (7-18); BUN/Creat Ratio 68.4 RATIO (10-20); Calcium,Total 8.4 mg/dL (8.5-10.1); Chloride 110 mmol/L (98-107); Creatinine, Serum 0.73 mg/dL (0.70-1.30); EST Glomerular Filtration Rate 113 mL/min (>60); Est Glom Filt Rate - Afr Amer 137 mL/min (>60); Estimated Creatinine Clearance 57.69 ml/min; Glucose 117 mg/dL (74-106); Potassium 4.8 mmol/L (3.5-5.1); Sodium Level 139 mmol/L (136-145)
[2021-03-21] MEDS: Ipratropium/Albuterol Sulfate 3 ML AMPUL.NEB INHALATION ×2 (07:03→13:25)
--- NOTE | 2021-03-21 07:58 | PN.CC_ITS ---
Assessment & Plan Assessment/Plan (1) Pleural effusion, right: PLAN: RECOMMENDATIONS: 1. Continue patient on assist control mode of mechanical ventilation. 2. Wean FiO2 and PEEP to maintain saturations at or above 90%. 3. Continue antimicrobials as ordered. 4. Continue bronchodilator therapy. 5. Medical management of SVT per cardiology recommendations. 6. Continue appropriate DVT and GI prophylaxis. 7. Consider tube thoracotomy. IMPRESSIONS: 1. Acute combined respiratory failure Likely secondary to underlying pulmonary infectious etiology with right-sided complicated pleural space and concern for possible parapneumonic effusion versus empyema. The patient decompensated from a respiratory perspective, ultimately requiring intubation on March 20. The patient will be continued on assist control mode of mechanical ventilation. FiO2 will be weaned as tolerated. Ultrasound-guided thoracentesis was completed on March 20. Per traditional Light's criteria, if at least one of the following three is fulfilled, the fluid would be considered an exudate: 1. Pleural fluid protein/serum protein ratio greater than 0.5 2. Pleural fluid LDH/serum LDH ratio greater than 0.6 3. Pleural fluid LDH greater than two thirds the upper limits of the laboratories normal serum LDH. Based upon my review of the patient's pleural fluid analysis, along with serum LDH and total protein levels, the pleural fluid would be considered exudative in nature. In addition, the patient had a significantly low glucose level noted on pleural fluid. This would raise concern for complicated parapneumonic effusion versus empyema. It would be reasonable to consider tube thoracotomy at this time. 2. Sepsis Sepsis due to pneumonia with complicated pleural space suggestive of parapneumonic effusion versus empyema with acute sepsis related organ dysfunction as evidenced by altered mentation and acute respiratory failure requiring invasive mechanical ventilatory support. Continue supportive measures and antimicrobials as noted above. The patient is currently hemodynamically stable. 3. Questionable obstructive lung disease Although the patient did present to the pulmonary medicine clinic in April 2020, he failed to complete pulmonary function studies and never followed up. For now, it is reasonable to continue bronchodilator therapy. 4. Supraventricular tachycardia Continue medical management per cardiology recommendations. TIME: 35 minutes of critical care time, inclusive of procedures, was spent addressing the patient's acute combined respiratory failure, sepsis related to pneumonia/parapneumonic effusion versus empyema, questionable COPD, supraventricular tachycardia, review of all data and collaboration with the care team. ([id number]) Subjective Subjective The patient was seen and examined at the bedside this morning. Events from the last 24 hours have been reviewed. The patient is currently afebrile, hemodynamically stable and maintaining appropriate oxygen saturations on assist control mode of mechanical ventilation with an FiO2 requirement of 30%. The patient was able to be weaned off of Levophed yesterday. He remains on antimicrobials and is currently sedated on propofol and fentanyl. The patient is status post ultrasound-guided thoracentesis yesterday with 130mL of dark- colored fluid drained. Objective Data Objective Data The patient's most recent lab work, culture data and imaging studies have all been personally reviewed. Surface echocardiogram from March 19 revealed an ejection fraction of 50%. Pulmonary artery systolic pressure was estimated to be 50 mmHg. Pleural fluid and sputum cultures are pending strep and urine Legionella antigens were negative. Blood cultures have demonstrated no growth to date. Rapid coronavirus antigen testing was negative. Vital Signs: Vital Signs Temp Pulse Resp BP Pulse Ox 98.4 F 68 14 105/45 L 96 03/21/21 04:00 03/21/21 07:03 03/21/21 07:03 03/21/21 07:00 03/21/21 07:03 Oxygen Flow Rate (L/min) 4 Oxygen Delivery Method [3] Mechanical Ventilator Oxygen Delivery Method [2] Mechanical Ventilator Oxygen Delivery Method [1 ( Mechanical Ventilator Initial Baseline)] Oxygen Delivery Method Mechanical Ventilator Weight: 58.5 kg Body Mass Index (BMI) 18.1 Intake & Output: Intake and Output for Last 24 Hours 03/19/21 03/20/21 03/21/21 23:59 23:59 23:59 Intake Total 5888.5 / 5898.5 3080.28 / 3112.18 468.57 / 468.57 Output Total 100 / 150 405 / 595 335 / 335 Balance 5788.5 / 5748.5 2675.28 / 2517.18 133.57 / 133.57 Medical Nutrition Assessment Dietitian: Malnutrition Criteria Met Start: 03/19/21 16:28 Freq: Status: Active Protocol: Document 03/20/21 16:18 ELLEN (Rec: 03/20/21 16:18 ELLEN [id number]) Nutrition Malnutrition Evidence of Malnutrition Exists Yes Malnutrition (severe): Acute Illness/Injury Evidenced By Suboptimal Energy Intake ( Severe),Weight Loss (Severe), Physical Changes (Severe) Clinical Problem Acute Disease or Injury Related Malnutrition Etiology related to sepsis/resp failure w/ pt not able to consume adequate nutrition to meet est nutritional needs Signs/Symptoms as evidenced by <50% po intake x >5 days and wt loss of 5.8% x 1 week prior to admission. (Pt appears to have low muscle/fat stores, ie temporal / orbital regions, clavicles, legs and arms look very depleted) Status Active Problem Recommendation Dietitian Recommendations/Changes Rec Vital AF 1.2 at 20 ml/hr w / 25 ml water every 4 hours to provide ~ 576 clayton/ 36 gm pro/ 539 ml free water/day. Will adjust tf rate daily d/t concerns of refeeding syndrome . Will check magnesium and phosphorous in the morning. Lab / Micro Data Attestation: I reviewed the patient's lab results. Result Diagrams: 03/21/21 04:05 03/21/21 04:05 Labs: Laboratory Results - last 24 hr 03/20/21 04:10: Diff Path Review Reviewed 03/20/21 12:35: Lactate Dehydrogenase 182, Total Protein 5.7 L, Globulin 4.3 H, Albumin/Globulin Ratio 0.3 L 03/20/21 12:35: Total Creatine Kinase 115, Triglycerides 91 03/20/21 14:13: Fluid Glucose < 1 L*, Fluid Total Protein 4.5, Fluid LDH 2758 03/20/21 14:13: Fluid Source THORACENTESIS, Fluid Color YELLOW, Fluid Appearance SL CLDY, Fluid WBC 1.139, Fluid RBC 6, Fluid Tot Cell Count 1.140, Fld Polynuclear WBCs # 1.024, Fld Polynuclear WBCs % 89.9, Fluid Mononuclear WBCs 0.115, Fld Mononuclear WBCs % 10.1, Fluid Neutrophils 90, Fluid Lymphocytes 10, Fl Pathologist Comment May follow, Fluid Comment 2 SEE COMMENT 03/21/21 04:05: Vancomycin Trough 13.1 03/21/21 04:05: Phosphorus 1.7 L 03/21/21 04:05: WBC 19.8 H, RBC 3.30 L, Hgb 9.7 L, Hct 32.8 L, MCV 99.4 H, MCH 29.4, MCHC 29.6 L, RDW Std Deviation 48.0 H, RDW Coeff of Vita 13.2, Plt Count 419, MPV 9.4, Immature Gran % (Auto) 3.500 H, Neut % (Auto) 86.4 H, Lymph % (Auto) 4.7 L, [place] % (Auto) 4.8, Eos % (Auto) 0.1, Baso % (Auto) 0.5, Absolute Neuts (auto) 17.1 H, Absolute Lymphs (auto) 0.94, Nucleated RBC % 0 03/21/21 04:05: Sodium 139, Potassium 4.8, Chloride 110 H, Carbon Dioxide 25.0, Anion Gap 4 L, BUN 50 H, Creatinine 0.73, Estim Creat Clear Calc 57.69, Est GFR (MDRD) Af Amer 137, Est GFR (MDRD) Non-Af 113, BUN/Creatinine Ratio 68.4 H, Glucose 117 H, Calcium 8.4 L Micro: Microbiology 03/19/21 10:20 Blood Culture (Wb) - Anticubital Left Blood Culture - Preliminary No growth in 48 hours. 03/19/21 09:35 Blood Culture (Wb) - Anticubital Left Blood Culture - Preliminary No growth in 48 hours. 03/20/21 14:13 Fluid - Other Gram Stain - Final 03/20/21 11:44 Sputum, Induced/Lukens Gram Stain - Final 03/20/21 00:30 Urine, Random Legionella Antigen - Final 03/20/21 00:30 Urine, Random Streptococcus pneumoniae Antigen (M - Final 03/19/21 10:05 Nasal Secretion SARS-CoV-2 Antigen (Rapid) - Final ABG Data ABG results: ABG 03/20/21 03/20/21 03/20/21 08:56 10:07 13:15 Specimen Type ART ART CM Sample Site L Radial L Radial L Radial pH 7.08 L* 7.08 L* Bicarbonate Actual 27.0 H 27.6 H Total CO2 30 31 Base Excess -3 L -3 L O2 Saturation 76 L 99 O2 % 100 ABG pCO2 90.2 H* 94.2 H* ABG pO2 58 L 166 H Austin Test Positive Positive VBG pH 7.23 L VBG pO2 59 H VBG HCO3 25 VBG Total CO2 27 VBG O2 Sat (Calc) 84 H VBG Base Excess -3 L POC Mix VBG pCO2 Pt Tmp 59.1 H Respiration Rate 14 14 O2 Delivery Device Cannula BiPAP Adult Vent Liter Flow 5.0 Tidal Volume 400 POC PEEP 10 8 Crit Call To/Read Back Yes Yes Blood Gas Notified Whom DR KENDRICK MARKS Clinical Comments [facility] Radiography Diagnostic Testing: Radiology Impression Thoracentesis Ultrasound 03/20/21 08:36 IMPRESSION: Ultrasound-guided right thoracentesis. Electronically Signed: Juan Crum MD at 14:55 EDT , Service support , Chest X-Ray 03/20/21 11:58 IMPRESSION: 1. Interval placement of endotracheal tube with tip above the nuno. 2. Interval placement of nasogastric tube with the tip below the diaphragm. 3. Worsening right-sided pleural effusion which is now large in size. Electronically Signed: Wilfrido Baxter MD at 12:28 EDT Tel , Service support , Chest X-Ray 03/20/21 14:29 IMPRESSION: Status post right thoracentesis. There is no evidence of pneumothorax. Electronically Signed: Juan Crum MD at 14:57 EDT , Service support , Physical Exam Const no apparent distress General Appearance: frail, intubated and patient mechanically ventilated HEENT normocephalic and head/scalp atraumatic Mouth: endotracheal tube in place and OG tube in place Eyes PERRL and EOMs intact bilaterally Neck supple General: trachea midline Chest inspection of chest normal Resp Auscultation: diminished lung sounds; Negative for rales, rhonchi or wheezes Percussion: dullness Upper: right and Lower: right Cardio regular rate and regular rhythm GI normal to inspection, nondistended, normoactive bowel sounds Extremity no clubbing, cyanosis or edema Skin no rashes or lesions noted Neuro Sensorium / Orientation: sedated on vent Charges/Coding Procedures Hospitalists Procedures: 28333 Critial Care 1st Hr
--- NOTE | 2021-03-21 08:40 | PCS.PANDOC ---
PANDEMIC DOCUMENTATION INITIATED: Date: 02/12/2021 Time: 190
--- NOTE | 2021-03-21 09:46 | CASEMGMT ---
Addendum entered by Susan Card 03/22/21 11:09: In addition [facility], [place], and [place] are in-network as well. Original Note: Insurance review for hospitals In-network with [employer] H[employer] Insurance if transfer is recommended is as follows: [facility], [facility], [facility], [facility], [facility], [facility]), and . Christin JAMILN RN CM
[2021-03-21 12:35] LABS: Pathologist Comment/Body Fluid Reviewed
--- NOTE | 2021-03-21 12:48 | NURSING ---
Dr Gibbs and Dr Verdugo at bedside to perform chest tube placement. Respiratory therapist and this RN present as well.
--- NOTE | 2021-03-21 13:20 | RAD_ITS ---
STUDY: X-RAY CHEST REASON FOR EXAM: Male, 70 years old. Chest tube placement -- PORTABLE TECHNIQUE: Single AP portable view of the chest. COMPARISON: Comparison is made with prior examination of earlier today at 2:27 PM. FINDINGS: The large bore chest tube has been placed with the tip along the medial aspect of the right lung base. Persistent fluid is seen in the right minor fissure. Stable elevation of the right hemidiaphragm. There has been improved aeration at the right lung base. The left lung is unchanged. RAD/Chest 1 View (Portable) IMPRESSION: Status post right chest tube placement with improved aeration of the right lung. Persistent fluid in the right minor fissure. Electronically Signed: Juan Crum MD at 13:34 EDT , Service support ,
[2021-03-21 14:22] LABS: Magnesium 2.9 mg/dL (1.6-2.6)
--- NOTE | 2021-03-21 15:13 | EX.PCM.CON.S ---
Assessment & Plan Assessment/Plan (1) Pleural effusion on right: PLAN: This is a 70-year-old gentleman with right?sided, loculated, parapneumonic effusion. Given the loculated nature of this collection, radiology was queried whether they could place a chest tube under CT guidance but they are limited to only an 8 [place] diameter. With this presumably a purulent, exudative process we felt that a larger?bore chest tube would be required for evacuation of the pleural space. Therefore, we made the decision to perform an ultrasound shaded right thoracostomy tube placement. See procedure note for full details. Management plan for the chest tube: ?Maintain suction at -20 cmH2O noting both character of the output as well as presence/absence of air leak ?Daily chest x-ray to assess effectiveness of chest tube ?We will investigate the possibility of instilling lytic therapy/dornase via chest tube to pleural space HPI Consult Data Date of Consult: 03/21/21 HPI Narrative HPI Narrative: MAGO GILLIAM, is a 70 M who presented to [facility] on 03/19/2021 with some hypotension, tachyarrhythmias, and evidence of a large, loculated right?sided pleural effusion. Ultimately patient's tachyarrhythmias (later diagnosed as supraventricular tachycardia by cardiology) improved with amiodarone and diltiazem. Patient required intubation on 03/20/2021 after respiratory decompensation. A thoracentesis was done the same day and analysis of the fluid was consistent with an exudative effusion. Surgery was consulted for consideration of placement of a right-sided thoracostomy tube. FOR[facility]LY [facility] Medical History Alcohol abuse Atrial fibrillation (03/19/21) COPD (chronic obstructive pulmonary disease) Former smoker Vision loss of left eye Vision loss of right eye Home Medications albuterol sulfate 90 mcg/actuation aerosol inhaler 2 puff INHALATION Q4H PRN #8.5 g 05/23/20 [Rx Last Taken 03/18/21] Allergy/AdvReac Type Severity Reaction Status Date / Time No Known Allergies Allergy Verified 03/19/21 10:00 Surgical History History of suburethral sling procedure Social History Smoking Status: Former smoker quit date: 03/30/20 pack-years: 50 Tobacco: How many years used: 50 Physical Exam Const General Appearance: frail, intubated and patient mechanically ventilated Orientation / Consciousness: other Other Details: Sedated Nutritional Appearance: cachectic Chest inspection of chest normal Chest: Negative for scars Medical Records Data Medical Nutrition Assessment Dietitian: Malnutrition Criteria Met Start: 03/19/21 16:28 Freq: Status: Active Protocol: Document 03/21/21 10:10 AG (Rec: 03/21/21 10:11 [id number]) Nutrition Malnutrition Evidence of Malnutrition Exists Yes Malnutrition (severe): Acute Illness/Injury Evidenced By Suboptimal Energy Intake ( Severe),Weight Loss (Severe), Physical Changes (Severe) Clinical Problem Acute Disease or Injury Related Malnutrition Etiology severe, acute malnutrition related to inadequate energy intake d/t resp. failure, acute illness Signs/Symptoms as evidenced by estimated PO intake meeting <50% of estimated nutritional needs >5 days, unintentional wt loss of 3.4kg/5.8% x 1 week prior to admission, severe muscle wasting/fat loss evident upon physical exam. Status Active Problem Recommendation Dietitian Recommendations/Changes NPO while intubated; d/t risk of refeeding, recommend Vital AF 1.2 via OGT at goal rate of 25mL/hour w/ 75mL H2O flush every 4 hours to provide 720 calories, 45 g protein, and 936.6mL fluid/day. Will monitor electrolytes closely. Daily wts. Lab / Micro Data Result Diagrams: 03/21/21 04:05 03/21/21 04:05 Labs: Laboratory Results - last 24 hr 03/20/21 14:13: Fluid Glucose < 1 L*, Fluid Total Protein 4.5, Fluid LDH 2758 03/20/21 14:13: Fluid Source THORACENTESIS, Fluid Color YELLOW, Fluid Appearance SL CLDY, Fluid WBC 1.139, Fluid RBC 6, Fluid Tot Cell Count 1.140, Fld Polynuclear WBCs # 1.024, Fld Polynuclear WBCs % 89.9, Fluid Mononuclear WBCs 0.115, Fld Mononuclear WBCs % 10.1, Fluid Neutrophils 90, Fluid Lymphocytes 10, Fl Pathologist Comment Reviewed, Fluid Comment 2 SEE COMMENT 03/21/21 04:05: Vancomycin Trough 13.1 03/21/21 04:05: Phosphorus 1.7 L 03/21/21 04:05: WBC 19.8 H, RBC 3.30 L, Hgb 9.7 L, Hct 32.8 L, MCV 99.4 H, MCH 29.4, MCHC 29.6 L, RDW Std Deviation 48.0 H, RDW Coeff of Vita 13.2, Plt Count 419, MPV 9.4, Immature Gran % (Auto) 3.500 H, Neut % (Auto) 86.4 H, Lymph % (Auto) 4.7 L, [place] % (Auto) 4.8, Eos % (Auto) 0.1, Baso % (Auto) 0.5, Absolute Neuts (auto) 17.1 H, Absolute Lymphs (auto) 0.94, Nucleated RBC % 0 03/21/21 04:05: Sodium 139, Potassium 4.8, Chloride 110 H, Carbon Dioxide 25.0, Anion Gap 4 L, BUN 50 H, Creatinine 0.73, Estim Creat Clear Calc 57.69, Est GFR (MDRD) Af Amer 137, Est GFR (MDRD) Non-Af 113, BUN/Creatinine Ratio 68.4 H, Glucose 117 H, Calcium 8.4 L 03/21/21 04:05: Magnesium 2.9 H Micro: Microbiology 03/20/21 14:13 Fluid - Other Gram Stain - Final 03/20/21 14:13 Fluid - Other Body Fluid Culture - Preliminary No growth-Final to follow 03/20/21 11:44 Sputum, Induced/Lukens Gram Stain - Final 03/20/21 11:44 Sputum, Induced/Lukens Respiratory Culture - Preliminary Loretta albicans 03/19/21 10:20 Blood Culture (Wb) - Anticubital Left Blood Culture - Preliminary No growth in 48 hours. 03/19/21 09:35 Blood Culture (Wb) - Anticubital Left Blood Culture - Preliminary No growth in 48 hours. Radiology Impression Chest X-Ray 03/21/21 13:20 IMPRESSION: Status post right chest tube placement with improved aeration of the right lung. Persistent fluid in the right minor fissure. Electronically Signed: Juan Crum MD at 13:34 EDT , Service support , Charges/Coding Visit Charges Inpatient E&M: 09069 Init Hosp L2
--- NOTE | 2021-03-21 15:22 | PCM.OP.PRO ---
Assessment & Plan Assessment/Plan (1) Pleural effusion, right: Procedure Report Date of Procedure: 03/21/21 Procedure name: Insertion of right tube thoracostomy (28 Fr) Procedure in detail : After obtaining consent from patient's family, the procedure was begun following a brief timeout confirming both the patient and the procedure. The insertion site was selected via ultrasound by identifying the area of most significant effusion and confirmed after aspirating these pleural contents using a sterile 18 Setswana needle. The chest wall at this site was then locally anesthetized with 10 mL Xylocaine. A scalpel was used to incise the skin with an approximately 2 cm transverse incision. Blunt dissection was used to spread the subcutaneous tissue and underlying intercostal muscle fibers. Then through controlled pressure a Taylor clamp was used to access the pleural cavity. This tract was bluntly spread open and the clamp was exchanged for the chest tube. Chest tube was inserted to a depth of 8 centimeters on the chest tube marking at the skin. There was immediate return of initially clear/straw yellow?colored fluid (that became slightly bloody) 60 mL after the tube was connected to the Pleur-evac collection device. The Pleur-evac was connected to wall suction with a chest tube suction of -20 cmH2O. There was a small air leak. Chest tube was then tied in with 0 silk suture. The site was dressed with petroleum gauze and regular gauze to pad the skin against the chest tube and this dressing was taped in place with a mesentery at the distal portion of the chest tube to allow for limited movement. A post-procedure chest x-ray was obtained to confirm tube position. Complications: None EBL: Less than 5 mL Procedures Cardiovascular CF Procedures [id number]: [id number] Insertion of chest tube
[2021-03-21] MEDS: Vital AF 1.2 Cal Liquid 1,000 ML 25 ML GT (16:07)
[2021-03-21] MEDS: Enoxaparin 40 MG/0.4 ML Syringe SC (16:08)
[2021-03-21] MEDS: Famotidine 20 MG Tablet GT ×2 (16:08→21:51)
[2021-03-21] MEDS: Chlorhexidine 480 ML 15 ML PO ×2 (16:42→21:51)
--- NOTE | 2021-03-21 18:29 | PCM.PN.HOSP ---
Subjective Subjective Patient was seen in [place] today in ICU, he remains sedated on the ventilator, I talked with pulmonary medicine briefly about his care, today a right tube thoracostomy was performed on the patient by general surgery due to concerns regarding a possible empyema. Objective Data Objective Data Vital Signs: Vital Signs Temp Pulse Resp BP Pulse Ox 96.8 F L 73 14 103/52 L 96 03/21/21 16:00 03/21/21 17:37 03/21/21 17:37 03/21/21 16:00 03/21/21 17:37 Oxygen Flow Rate (L/min) 4 Oxygen Delivery Method [3] Mechanical Ventilator Oxygen Delivery Method [2] Mechanical Ventilator Oxygen Delivery Method [1 ( Mechanical Ventilator Initial Baseline)] Oxygen Delivery Method Mechanical Ventilator Weight: 58.5 kg Body Mass Index (BMI) 18.1 Intake & Output: Intake and Output for Last 24 Hours 03/19/21 03/20/21 03/21/21 23:59 23:59 23:59 Intake Total 5888.5 / 5898.5 3080.28 / 3112.18 851.32 / 851.32 Output Total 100 / 150 405 / 595 335 / 335 Balance 5788.5 / 5748.5 2675.28 / 2517.18 516.32 / 516.32 Medical Nutrition Assessment Dietitian: Malnutrition Criteria Met Start: 03/19/21 16:28 Freq: Status: Active Protocol: Document 03/21/21 10:10 (Rec: 03/21/21 10:11 [id number]) Nutrition Malnutrition Evidence of Malnutrition Exists Yes Malnutrition (severe): Acute Illness/Injury Evidenced By Suboptimal Energy Intake ( Severe),Weight Loss (Severe), Physical Changes (Severe) Clinical Problem Acute Disease or Injury Related Malnutrition Etiology severe, acute malnutrition related to inadequate energy intake d/t resp. failure, acute illness Signs/Symptoms as evidenced by estimated PO intake meeting <50% of estimated nutritional needs >5 days, unintentional wt loss of 3.4kg/5.8% x 1 week prior to admission, severe muscle wasting/fat loss evident upon physical exam. Status Active Problem Recommendation Dietitian Recommendations/Changes NPO while intubated; d/t risk of refeeding, recommend Vital AF 1.2 via OGT at goal rate of 25mL/hour w/ 75mL H2O flush every 4 hours to provide 720 calories, 45 g protein, and 936.6mL fluid/day. Will monitor electrolytes closely. Daily wts. Lab / Micro Data Result Diagrams: 03/21/21 04:05 03/21/21 04:05 Labs: Laboratory Results - last 24 hr 03/20/21 14:13: Fl Pathologist Comment Reviewed 03/21/21 04:05: Vancomycin Trough 13.1 03/21/21 04:05: Phosphorus 1.7 L 03/21/21 04:05: WBC 19.8 H, RBC 3.30 L, Hgb 9.7 L, Hct 32.8 L, MCV 99.4 H, MCH 29.4, MCHC 29.6 L, RDW Std Deviation 48.0 H, RDW Coeff of Vita 13.2, Plt Count 419, MPV 9.4, Immature Gran % (Auto) 3.500 H, Neut % (Auto) 86.4 H, Lymph % (Auto) 4.7 L, [place] % (Auto) 4.8, Eos % (Auto) 0.1, Baso % (Auto) 0.5, Absolute Neuts (auto) 17.1 H, Absolute Lymphs (auto) 0.94, Nucleated RBC % 0 03/21/21 04:05: Sodium 139, Potassium 4.8, Chloride 110 H, Carbon Dioxide 25.0, Anion Gap 4 L, BUN 50 H, Creatinine 0.73, Estim Creat Clear Calc 57.69, Est GFR (MDRD) Af Amer 137, Est GFR (MDRD) Non-Af 113, BUN/Creatinine Ratio 68.4 H, Glucose 117 H, Calcium 8.4 L 03/21/21 04:05: Magnesium 2.9 H Micro: Microbiology 03/20/21 14:13 Fluid - Other Gram Stain - Final 03/20/21 14:13 Fluid - Other Body Fluid Culture - Preliminary No growth-Final to follow 03/20/21 11:44 Sputum, Induced/Lukens Gram Stain - Final 03/20/21 11:44 Sputum, Induced/Lukens Respiratory Culture - Preliminary Loretta albicans 03/19/21 10:20 Blood Culture (Wb) - Anticubital Left Blood Culture - Preliminary No growth in 48 hours. 03/19/21 09:35 Blood Culture (Wb) - Anticubital Left Blood Culture - Preliminary No growth in 48 hours. 03/20/21 00:30 Urine, Random Legionella Antigen - Final 03/20/21 00:30 Urine, Random Streptococcus pneumoniae Antigen (M - Final 03/19/21 10:05 Nasal Secretion SARS-CoV-2 Antigen (Rapid) - Final Radiography Diagnostic Testing: Radiology Impression Chest X-Ray 03/21/21 13:20 IMPRESSION: Status post right chest tube placement with improved aeration of the right lung. Persistent fluid in the right minor fissure. Electronically Signed: Juan Crum MD at 13:34 EDT , Service support , Physical Exam Narrative Constitutional Narrative: Patient is sedated and on the ventilator General Appearance: Patient appears older than his stated age Orientation / Consciousness: Patient is sedated and on the ventilator at this time Nutritional Appearance: cachectic HEENT normocephalic and head/scalp atraumatic Head and Scalp: normocephalic Eyes PERRL, EOMs intact bilaterally and conjunctivae normal Neck nuchal rigidity, no lymphadenopathy, supple, no JVD and thyroid normal General: trachea midline Resp normal respiratory effort, no retractions and no use of accessory muscles Resp Narrative: Decreased breath sounds are noted over the right lower lung coppola Auscultation: Negative for rales, rhonchi or wheezes Cardio regular rate, regular rhythm, S1 normal heart sound, S2 normal heart sound, no murmurs, no rub, no gallops and no clicks GI normal to inspection, nondistended, normoactive bowel sounds, soft to palpation, non-tender and non-distended Extremity no clubbing, cyanosis or edema Skin no rashes or lesions noted General Skin Exam: no breakdown Neuro Patient is sedated and on the ventilator at this time Assessment & Plan Assessment/Plan (1) Pleural effusion, right: PLAN: 1. Acute combined respiratory failure secondary to community-acquired pneumonia-patient will remain on antibiotics and pulmonary medicine is participating in his care #2 right pleural effusion-possibly empyema, patient will remain on antibiotics, a right thoracostomy tube was placed today by general surgery #3 severe protein caloric malnutrition-nutritional services is seeing patient #4 supraventricular tachycardia-patient is currently on amiodarone, he is being seen by cardiology #5 chronic obstructive pulmonary disease #6 sepsis-secondary to community-acquired pneumonia #7 community-acquired pneumonia-patient is currently on Zosyn and vancomycin-day #3 Charges/Coding Visit Charges Inpatient E&M: 48404 Subs Hosp L2
[2021-03-22] VITALS (28 sets, daily range): BP systolic 92–148; BP diastolic 52–85; PULSE 57–93; RESP 14–26; TEMP 36.4–37.3; O2SAT 91–100
[2021-03-22] MEDS: CHLORHEXIDINE GLUC 2% CLOTH 1 EACH TOWELETTE TOPICAL (00:31)
[2021-03-22 04:48] LABS: Magnesium 2.3 mg/dL (1.6-2.6); Phosphorus 1.6 mg/dL (2.5-4.9)
[2021-03-22 05:25] LABS: Hematocrit 31.5 % (40-54); Hemoglobin 9.6 g/dL (13.0-16.5); Mean Corp Hgb Conc 30.5 g/dL (32-36); Mean Corpuscular Hgb 29.6 pg (27.0-32.0); Mean Corpuscular Volume 97.2 fL (80-94); Mean Platelet Vol. 9.1 fl (6.2-12.0); POSITIVE COUNT YES; POSITIVE MORPHOLOGY YES; Platelet Count 427 K/mm3 (150-450); RBC Distribution Width CV 13.2 % (11.6-14.6); RBC Distribution Width SD 47.4 fl (35.1-43.9); Red Blood Count 3.24 M/mm3 (4.6-6.2); White Blood Count 12.8 K/mm3 (4.4-11.0)
[2021-03-22 05:35] LABS: Anion Gap 4 (5-15); BUN 33 mg/dL (7-18); BUN/Creat Ratio 58.9 RATIO (10-20); Calcium,Total 7.9 mg/dL (8.5-10.1); Chloride 110 mmol/L (98-107); Creatinine, Serum 0.56 mg/dL (0.70-1.30); Differential Indicated MANUAL DIFF; EST Glomerular Filtration Rate 154 mL/min (>60); Est Glom Filt Rate - Afr Amer 186 mL/min (>60); Estimated Creatinine Clearance 58.48 ml/min; Glucose 132 mg/dL (74-106); Potassium 4.2 mmol/L (3.5-5.1); Sodium Level 141 mmol/L (136-145)
[2021-03-22 05:46] LABS: Absolute Lymphocyte Count 1.15 X10^3/uL (0.83-4.51); Metamyelocyte 1 % (0-1); Neutrophil-Band 2 % (0-5); Neutrophil-Segmented 76 % (47-70)
[2021-03-22 05:47] LABS: Eosinophil 2 % (0-5); Lymphocyte 9 % (19-41); Monocyte 5 % (0-10); Myelocyte 1 % (0-0); Promyelocyte 4 % (0-0)
[2021-03-22 05:48] LABS: Atypical Lymphocyte 1+ %; Platelet Estimate ADEQUATE (ADEQ)
[2021-03-22 05:49] LABS: Red Cell Morphology NORM C+C NORMAL (NORM C&C); Target Cells 1+
[2021-03-22] MEDS: Amiodarone 360 MG in Dextrose 5% Viaflo Bag 192.8 ML 16.7 MG CONT INF ×2 (06:15→18:37)
[2021-03-22] MEDS: Ipratropium/Albuterol Sulfate 3 ML AMPUL.NEB INHALATION ×2 (07:20→13:32)
--- NOTE | 2021-03-22 07:28 | RAD_ITS ---
STUDY: X-RAY CHEST REASON FOR EXAM: Male, 70 years old. f/u effusion w CT in place TECHNIQUE: Single AP portable view of the chest. COMPARISON: Comparison is made with prior study dated 03/21/2021. FINDINGS: A right-sided chest tube is in situ in the mid medial portion of the right hemithorax. Persistent pleural-parenchymal changes at the right lung base. Fluid is also seen in the right minor fissure. There is improved aeration at the right lung base as compared to prior study. Minimal increased markings are seen at the left lung base. Normal size heart. Normal mediastinum and genaro. Normal visualized pulmonary arteries. There is atherosclerotic tortuosity of the aortic arch and descending thoracic aorta. There are diffuse degenerative changes of the visualized thoracic spine. Normal visualized ribs, clavicles, and shoulders. There is no demonstrated abnormality of the visualized soft tissue structures of the upper abdomen. RAD/Chest 1 View (Portable) IMPRESSION: Stable positioning of the right chest tube. Persistent pleural-parenchymal changes at the right lung base although there has been improvement. Loculated fluid is once again seen in the right minor fissure. Electronically Signed: Juan Crum MD at 8:03 EDT , Service support ,
[2021-03-22 07:31] LABS: Base Excess 2 mmol/L (-2 to +2); Bicarbonate 26.8 mmol/L (22-26); Blood Gas Specimen Type ART; FI02 30; Mode CPAP/PS; PEEP 5; PO2 53 mmHG (75-100); PS 5; SITE L Radial; SO2 87 % (95-99); Total Carbon Dioxide 28 mmol/L
[2021-03-22] MEDS: Chlorhexidine 480 ML 15 ML PO (09:24)
--- NOTE | 2021-03-22 09:31 | PN.CC_ITS ---
Assessment & Plan Assessment/Plan (1) Pleural effusion, right: PLAN: RECOMMENDATIONS: 1. Proceed with extubation. 2. Once extubated, wean supplemental oxygen to maintain saturations at or above 90%. 3. Swallow evaluation prior to advancing diet. 4. Continue antimicrobials as ordered. 5. Will discuss with radiology as to the feasibility of drainage catheter placement to the remaining loculated pleural fluid collection. 6. Continue bronchodilator therapy. 7. Medical management of SVT per cardiology recommendations. 8. Continue appropriate DVT and GI prophylaxis. IMPRESSIONS: 1. Acute combined respiratory failure Likely secondary to underlying pulmonary infectious etiology with right-sided complicated pleural space and concern for possible parapneumonic effusion versus empyema. The patient decompensated from a respiratory perspective, ultimately requiring intubation on March 20. The patient will be continued on assist control mode of mechanical ventilation. FiO2 will be weaned as tolerated. Ultrasound-guided thoracentesis was completed on March 20. Per traditional Light's criteria, if at least one of the following three is fulfilled, the fluid would be considered an exudate: 1. Pleural fluid protein/serum protein ratio greater than 0.5 2. Pleural fluid LDH/serum LDH ratio greater than 0.6 3. Pleural fluid LDH greater than two thirds the upper limits of the laboratories normal serum LDH. Based upon my review of the patient's pleural fluid analysis, along with serum LDH and total protein levels, the pleural fluid would be considered exudative in nature. In addition, the patient had a significantly low glucose level noted on pleural fluid. This would raise concern for complicated parapneumonic effusion versus empyema. The patient underwent tube thoracotomy on March 21. There is still a residual loculated pleural fluid collection. Will discuss with radiology as to the feasibility of CT-guided drainage catheter placement to the remaining loculation. Given improvement in oxygenation and respiratory status, will proceed with extubation this morning. 2. Sepsis Sepsis due to pneumonia with complicated pleural space suggestive of parapneumonic effusion versus empyema with acute sepsis related organ dysfunction as evidenced by altered mentation and acute respiratory failure requiring invasive mechanical ventilatory support. Continue supportive measures and antimicrobials as noted above. The patient is currently hemodynamically stable. 3. Questionable obstructive lung disease Although the patient did present to the pulmonary medicine clinic in April 2020, he failed to complete pulmonary function studies and never followed up. For now, it is reasonable to continue bronchodilator therapy. 4. Supraventricular tachycardia Continue medical management per cardiology recommendations. TIME: 33 minutes of critical care time, inclusive of procedures, was spent addressing the patient's acute combined respiratory failure, sepsis related to pneumonia/parapneumonic effusion versus empyema, questionable COPD, supraventricular tachycardia, review of all data and collaboration with the care team. ([id number]) Subjective Subjective The patient was seen and examined at the bedside this morning. Events from the last 24 hours have been reviewed. The patient is currently afebrile, he modynamically stable and maintaining appropriate oxygen saturations on spontaneous mode of mechanical ventilation with an FiO2 requirement of 30%. The patient tolerated his spontaneous breathing trial this morning. Therefore, he was extubated to nasal cannula supplemental oxygen. The patient is currently documented to be overall net +9 L for the hospital admission. There has been approximately 400 mL of output from his chest tube. Objective Data Objective Data The patient's most recent lab work, culture data and imaging studies have all been personally reviewed. Surface echocardiogram from March 19 revealed an ejection fraction of 50%. Pulmonary artery systolic pressure was estimated to be 50 mmHg. Pleural fluid and sputum cultures are pending. Strep and urine Legionella antigens were negative. Blood cultures have demonstrated no growth to date. Rapid coronavirus antigen testing was negative. Vital Signs: Vital Signs Temp Pulse Resp BP Pulse Ox 98.2 F 57 L 20 H 128/68 H 92 03/22/21 04:00 03/22/21 08:00 03/22/21 07:40 03/22/21 07:00 03/22/21 07:40 Oxygen Flow Rate (L/min) 5 Oxygen Delivery Method [3] Mechanical Ventilator Oxygen Delivery Method [2] Mechanical Ventilator Oxygen Delivery Method [1 ( Mechanical Ventilator Initial Baseline)] Oxygen Delivery Method Nasal Cannula Weight: 59.3 kg Body Mass Index (BMI) 18.1 Intake & Output: Intake and Output for Last 24 Hours 03/20/21 03/21/21 03/22/21 23:59 23:59 23:59 Intake Total 3080.28 / 3112.18 1492.36 / 1962.86 1290.45 / 1290.45 Output Total 405 / 595 1055 / 1220 535 / 535 Balance 2675.28 / 2517.18 437.36 / 742.86 755.45 / 755.45 Medical Nutrition Assessment Dietitian: Malnutrition Criteria Met Start: 03/19/21 16:28 Freq: Status: Active Protocol: Document 03/21/21 10:10 AG (Rec: 03/21/21 10:11 [id number]) Nutrition Malnutrition Evidence of Malnutrition Exists Yes Malnutrition (severe): Acute Illness/Injury Evidenced By Suboptimal Energy Intake ( Severe),Weight Loss (Severe), Physical Changes (Severe) Clinical Problem Acute Disease or Injury Related Malnutrition Etiology severe, acute malnutrition related to inadequate energy intake d/t resp. failure, acute illness Signs/Symptoms as evidenced by estimated PO intake meeting <50% of estimated nutritional needs >5 days, unintentional wt loss of 3.4kg/5.8% x 1 week prior to admission, severe muscle wasting/fat loss evident upon physical exam. Status Active Problem Recommendation Dietitian Recommendations/Changes NPO while intubated; d/t risk of refeeding, recommend Vital AF 1.2 via OGT at goal rate of 25mL/hour w/ 75mL H2O flush every 4 hours to provide 720 calories, 45 g protein, and 936.6mL fluid/day. Will monitor electrolytes closely. Daily wts. Lab / Micro Data Attestation: I reviewed the patient's lab results. Result Diagrams: 03/22/21 04:25 03/22/21 04:25 Labs: Laboratory Results - last 24 hr 03/20/21 14:13: Fl Pathologist Comment Reviewed 03/21/21 04:05: Magnesium 2.9 H 03/22/21 04:25: Phosphorus 1.6 L, Magnesium 2.3 03/22/21 04:25: WBC 12.8 H, RBC 3.24 L, Hgb 9.6 L, Hct 31.5 L, MCV 97.2 H, MCH 29.6, MCHC 30.5 L, RDW Std Deviation 47.4 H, RDW Coeff of Vita 13.2, Plt Count 427, MPV 9.1, Neut % (Auto) Not Reportable, Absolute Neuts (auto) 10.0 H, Absolute Lymphs (auto) 1.15, Neutrophils % (Manual) 76 H, Band Neutrophils % 2, Lymphocytes % (Manual) 9 L, Monocytes % (Manual) 5, Eosinophils % (Manual) 2, Metamyelocytes % 1, Myelocytes % 1 H, Promyelocytes % 4 H, Diff Path Review May foll, Atypical Lymphocytes 1+, Platelet Estimate ADEQUATE, RBC Morphology NORM C+C, Target Cells 1+ 03/22/21 04:25: Sodium 141, Potassium 4.2, Chloride 110 H, Carbon Dioxide 27.0, Anion Gap 4 L, BUN 33 H, Creatinine 0.56 L, Estim Creat Clear Calc 58.48, Est GFR (MDRD) Af Amer 186, Est GFR (MDRD) Non-Af 154, BUN/Creatinine Ratio 58.9 H, Glucose 132 H, Calcium 7.9 L Micro: Microbiology 03/20/21 14:13 Fluid - Other Gram Stain - Final 03/20/21 14:13 Fluid - Other Body Fluid Culture - Preliminary No growth-Final to follow 03/20/21 14:13 Fluid - Other Anaerobic Culture - Preliminary No growth in 48 hours. 03/20/21 11:44 Sputum, Induced/Lukens Gram Stain - Final 03/20/21 11:44 Sputum, Induced/Lukens Respiratory Culture - Preliminary Loretta albicans 03/19/21 10:20 Blood Culture (Wb) - Anticubital Left Blood Culture - Preliminary No growth in 48 hours. 03/19/21 09:35 Blood Culture (Wb) - Anticubital Left Blood Culture - Preliminary No growth in 48 hours. 03/20/21 00:30 Urine, Random Legionella Antigen - Final 03/20/21 00:30 Urine, Random Streptococcus pneumoniae Antigen (M - Final 03/19/21 10:05 Nasal Secretion SARS-CoV-2 Antigen (Rapid) - Final ABG Data ABG results: ABG 03/22/21 07:25 Specimen Type ART Sample Site L Radial pH 7.40 Bicarbonate Actual 26.8 H Total CO2 28 Base Excess 2 O2 Saturation 87 L O2 % 30 ABG pCO2 43.0 ABG pO2 53 L Vent Mode CPAP/PS POC PEEP 5 POC Pressure Suppt 5 Radiography Diagnostic Testing: Radiology Impression Chest X-Ray 03/21/21 13:20 IMPRESSION: Status post right chest tube placement with improved aeration of the right lung. Persistent fluid in the right minor fissure. Electronically Signed: Juan Crum MD at 13:34 EDT , Service support , Chest X-Ray 03/22/21 07:28 IMPRESSION: Stable positioning of the right chest tube. Persistent pleural-parenchymal changes at the right lung base although there has been improvement. Loculated fluid is once again seen in the right minor fissure. Electronically Signed: Juan Crum MD at 8:03 EDT , Service support , Physical Exam Const no apparent distress General Appearance: frail, intubated and patient mechanically ventilated HEENT normocephalic and head/scalp atraumatic Mouth: endotracheal tube in place and OG tube in place Eyes PERRL and EOMs intact bilaterally Neck supple General: trachea midline Chest Chest Narrative: + Air leak from atrium Chest: chest tube right Resp Auscultation: diminished lung sounds; Negative for rales, rhonchi or wheezes Percussion: dullness Upper: right and Lower: right Cardio regular rate and regular rhythm GI normal to inspection, nondistended, normoactive bowel sounds Extremity no clubbing, cyanosis or edema Skin no rashes or lesions noted Neuro Neuro Narrative: Able to follow simple commands Charges/Coding Procedures Hospitalists Procedures: 20025 Critial Care 1st Hr
[2021-03-22 11:00] LABS: Allen Test Positive; Base Excess 3 mmol/L (-2 to +2); Bicarbonate 28.4 mmol/L (22-26); Blood Gas Specimen Type ART; O2 Delivery Device Cannula; PO2 62 mmHG (75-100); SITE R Radial; SO2 90 % (95-99); Total Carbon Dioxide 30 mmol/L; pCO2 51.5 mmHg (35-45); pH 7.35 (7.35-7.45)
[2021-03-22] MEDS: Enoxaparin 40 MG/0.4 ML Syringe SC (11:58)
[2021-03-22 12:45] LABS: Pathologist Review Reviewed
--- NOTE | 2021-03-22 12:55 | PCM.PN.BLA ---
Progress Note Patient seen and examined during AM rounds. He has been extubated and is stable from a respiratory standpoint. Nursing reports that there has been some additional output from the patient's chest tube. He is minimally communicative following extubation today. Physical Exam Const alert and no apparent distress Chest Chest: chest tube right (-20 cmH2O suction with almost continuous 1 chamber air leak); Negative for crepitus Resp normal respiratory effort Assessment & Plan Assessment/Plan (1) Pleural effusion, right: PLAN: Patient with improved expansion of right upper lobe. Persistent loculated fluid collection seems to be restricting expansion of the right middle and lower lobes. Patient with persistent air leak on chest tube. We investigated pleural lytic therapy but the cost would seem to be prohibitive given the questionable benefit. ?Regarding the current chest tube continue to suction at -20 cmH2O with daily chest x-rays ?Recommend consulting radiology for possible CT?guided small?bore chest tube versus pigtail catheter in right basal fluid collection to see if this will assist with remainder of patient's effusion?especially given the very low viscosity of the fluid drained via thoracostomy yesterday Visit Charges Inpatient E&M: 52267 Subs Hosp L1
--- NOTE | 2021-03-22 14:51 | NURSING ---
report given to [facility] transfer to [facility] when bed available tonight or tommorrow morning, rosy Mcfarlane aware of transfer came to [employer] belongings
--- NOTE | 2021-03-22 18:18 | DS.PCM_ITS ---
Providers Date of Admission: 03/19/21 Date of Discharge: 03/22/21 Primary Care Physician: No Primary Care Phys Consultations 03/19/21 14:32 Consult: Cardiology Routine Consulting Provider: Manny Bo Reason for Consult: SVT EMERGENT Consult: No Notified: Yes Date Notified: 03/19/21 Time Notified: 13:39 Method of Notification: Text Consult: Electronics Commodity Manager / Pulmonary Medicine Routine Consulting Provider: Pulmonary Medicine keith Jakub Reason for Consult: right pleural effusion EMERGENT Consult: No Notified: Yes Date Notified: 03/19/21 Time Notified: 13:38 Method of Notification: informed by ED doctor 03/21/21 13:14 Consult: General Surgery Routine Consulting Provider: Landon Jacob Reason for Consult: chest tube placement EMERGENT Consult: Yes MD Notified: Yes Date Notified: 03/21/21 Time Notified: 13:15 Method of Notification: Verbal Reason For Visit: SEPSIS / ACUTE HYPOXIC RESP FAILURE / RT PE Diagnosis Discharge Diagnosis (1) Pleural effusion, right: Status: Acute Code(s): J90 - Pleural effusion, not elsewhere classified Medications at Discharge Home Medications albuterol sulfate 90 mcg/actuation aerosol inhaler 2 puff INHALATION Q4H PRN #8.5 g 05/23/20 Medical Records Data Medical Nutrition Assessment Dietitian: Malnutrition Criteria Met Start: 03/19/21 16:28 Freq: Status: Active Protocol: Document 03/22/21 14:43 RMA (Rec: 03/22/21 14:43 RMA [id number]) Nutrition Malnutrition Evidence of Malnutrition Exists Yes Malnutrition (severe): Acute Illness/Injury Evidenced By Suboptimal Energy Intake ( Severe),Weight Loss (Severe), Physical Changes (Severe) Clinical Problem Acute Disease or Injury Related Malnutrition Etiology severe, acute malnutrition related to inadequate energy intake d/t resp. failure, acute illness Signs/Symptoms as evidenced by estimated PO intake meeting <50% of estimated nutritional needs >5 days, unintentional wt loss of 3.4kg/5.8% x 1 week prior to admission, severe muscle wasting/fat loss evident upon physical exam. Status Active Problem Recommendation Dietitian Recommendations/Changes Regular diet as tolerated once cleared for PO by [employer]. Will add oral nutrition supplements as diet advanced from NPO. Daily weights. Weight / BMI Weight Weight: 59.3 kg Body Mass Index (BMI) 18.1 ABG / Lab / Microbiology Data Result Diagrams: 03/22/21 04:25 03/22/21 04:25 Laboratory: Laboratory Results - last 24 hr 03/20/21 14:13: Miscellaneous Cytology SEE PATHOLOGY REPORT 03/22/21 04:25: Phosphorus 1.6 L, Magnesium 2.3 03/22/21 04:25: WBC 12.8 H, RBC 3.24 L, Hgb 9.6 L, Hct 31.5 L, MCV 97.2 H, MCH 29.6, MCHC 30.5 L, RDW Std Deviation 47.4 H, RDW Coeff of Vita 13.2, Plt Count 427, MPV 9.1, Neut % (Auto) Not Reportable, Absolute Neuts (auto) 10.0 H, Abs olute Lymphs (auto) 1.15, Neutrophils % (Manual) 76 H, Band Neutrophils % 2, Lymphocytes % (Manual) 9 L, Monocytes % (Manual) 5, Eosinophils % (Manual) 2, Metamyelocytes % 1, Myelocytes % 1 H, Promyelocytes % 4 H, Diff Path Review Reviewed, Atypical Lymphocytes 1+, Platelet Estimate ADEQUATE, RBC Morphology NORM C+C, Target Cells 1+ 03/22/21 04:25: Sodium 141, Potassium 4.2, Chloride 110 H, Carbon Dioxide 27.0, Anion Gap 4 L, BUN 33 H, Creatinine 0.56 L, Estim Creat Clear Calc 58.48, Est GFR (MDRD) Af Amer 186, Est GFR (MDRD) Non-Af 154, BUN/Creatinine Ratio 58.9 H, Glucose 132 H, Calcium 7.9 L Microbiology: Microbiology 03/20/21 11:44 Sputum, Induced/Lukens Gram Stain - Final 03/20/21 11:44 Sputum, Induced/Lukens Respiratory Culture - Preliminary Loretta albicans 03/20/21 14:13 Fluid - Other Gram Stain - Final 03/20/21 14:13 Fluid - Other Body Fluid Culture - Preliminary No growth-Final to follow 03/20/21 14:13 Fluid - Other Anaerobic Culture - Preliminary No growth in 48 hours. 03/19/21 10:20 Blood Culture (Wb) - Anticubital Left Blood Culture - Preliminary No growth in 48 hours. 03/19/21 09:35 Blood Culture (Wb) - Anticubital Left Blood Culture - Preliminary No growth in 48 hours. 03/20/21 00:30 Urine, Random Legionella Antigen - Final 03/20/21 00:30 Urine, Random Streptococcus pneumoniae Antigen (M - Final 03/19/21 10:05 Nasal Secretion SARS-CoV-2 Antigen (Rapid) - Final ABG: ABG 03/22/21 03/22/21 07:25 10:57 Specimen Type ART ART Sample Site L Radial R Radial pH 7.40 7.35 Bicarbonate Actual 26.8 H 28.4 H Total CO2 28 30 Base Excess 2 3 H O2 Saturation 87 L 90 L O2 % 30 ABG pCO2 43.0 51.5 H ABG pO2 53 L 62 L Austin Test Positive O2 Delivery Device Cannula Liter Flow 5.0 Vent Mode CPAP/PS POC PEEP 5 POC Pressure Suppt 5 Radiography Diagnostic Testing: Radiology Impression Chest X-Ray 03/22/21 07:28 IMPRESSION: Stable positioning of the right chest tube. Persistent pleural-parenchymal changes at the right lung base although there has been improvement. Loculated fluid is once again seen in the right minor fissure. Electronically Signed: Juan Crum MD at 8:03 EDT , Service support , Discharge Plan Admission Admit Date/Time: 03/19/21 13:33 Attending Provider: Rohan Arizmendi Primary Care Provider: Care Physician,No Primary Consulting Providers: Manny Bo ; Evens Vasquez ; Gerard Gibbs ; Rosmery Fish NP ; Landon Jacob Discharge Orders/Prescriptions Prescriptions: No Action albuterol sulfate 90 mcg/actuation HFA aerosol inhaler 2 puff INHALATION Q4H PRN (Reason: shortness of breath or wheezing) Qty: 8.5 RF: 6 Referrals / Follow Up: Care Physician,No Primary [Primary Care Provider] - Disposition Discharge Orders: Discharge Patient (Routine); Ordered 03/22/21 Ordered By: Dr. Rohan Arizmendi
--- NOTE | 2021-03-22 19:31 | DS.PCM_ITS ---
Providers Date of Admission: 03/19/21 Date of Discharge: 03/22/21 Primary Care Physician: Christianne Primary Care Phys Consultations 03/19/21 14:32 Consult: Cardiology Routine Consulting Provider: Manny Bo Reason for Consult: SVT EMERGENT Consult: No Notified: Yes Date Notified: 03/19/21 Time Notified: 13:39 Method of Notification: Text Consult: Web Application Dev Specialist / Pulmonary Medicine Routine Consulting Provider: Pulmonary Medicine [facility] Reason for Consult: right pleural effusion EMERGENT Consult: No Notified: Yes Date Notified: 03/19/21 Time Notified: 13:38 Method of Notification: informed by ED doctor 03/21/21 13:14 Consult: General Surgery Routine Consulting Provider: Landon Jacob Reason for Consult: chest tube placement EMERGENT Consult: Yes MD Notified: Yes Date Notified: 03/21/21 Time Notified: 13:15 Method of Notification: Verbal Reason For Visit: SEPSIS / ACUTE HYPOXIC RESP FAILURE / RT PE Diagnosis Discharge Diagnosis (1) Pleural effusion, right: Status: Acute Code(s): J90 - Pleural effusion, not elsewhere classified Plan: 1. Acute combined respiratory failure secondary to community-acquired pn eumonia-patient will remain on antibiotics and pulmonary medicine is participating in his care #2 right empyema #3 severe protein caloric malnutrition #4 supraventricular tachycardia #5 chronic obstructive pulmonary disease #6 sepsis-secondary to community-acquired pneumonia #7 community-acquired pneumonia Medications at Discharge Home Medications albuterol sulfate 90 mcg/actuation aerosol inhaler 2 puff INHALATION Q4H PRN #8 .5 g 05/23/20 Hospital Course Procedures Intubation and - (Right-sided chest tube insertion) Summary of Care Provided Minutes Spent on Discharge: 33 Hospital Course: This 70-year-old white male was seen in the emergency room at [facility] with a chief complaint of shortness of breath. On admission to the ER, patient was noted to be hypoxic and patient had an EKG performed which showed evidence of SVT, patient was hypotensive, he received a dose of adenosine and a second dose of 12 mg of adenosine. No change on the monitor was noted, patient was sedated for cardioversion and the patient underwent synchronized 200 J shocks, this was resistant to cardioversion the patient was loaded with amiodarone and his heart rate lowered. Chest x-ray showed a large right pleural effusion, patient's white count was elevated at 38.7, lactic acid was 2.1, and his BUN was 65. Patient was placed on IV antibiotics. CT of the chest was obtained which showed a loculated effusion on the right, patient was admitted to ICU, he was subsequently found to be acidotic, hypercapnic. and hypoxic in the morning hours of 03/20/2021, patient was intubated and later in the day underwent a right thoracentesis. Fluid analysis indicated a possible empyema, on 03/21/2021, patient underwent insertion of a chest tube by general surgery with removal of some fluid that did not appear to be grossly purulent. On 03/22/2021, I received a text from critical care stating they felt the patient should be transferred to tertiary facility for consultation with the thoracic surgeon. Patient had been extubated that same morning. On examination he appeared older than his stated age. Vital signs as documented. Skin warm and dry and without overt rashes. Neck without JVD, neck was supple, trachea midline, thyroid was normal. Lungs clear bilaterally, normal air movem ent was noted. Heart exam notable for regular rhythm, normal sounds and absence of murmurs, rubs or gallops. Abdomen unremarkable and without evidence of organomegaly, masses, or abdominal aortic enlargement. Bowel sounds are present, abdomen is not distended. Extremities nonedematous, no cyanosis was noted, no clubbing was noted. Neuro: Cranial nerves II through XII are grossly intact, no focal motor deficits were noted, sensation to light touch and pinprick intact, motor exam 5/5 throughout. Psych: Patient is alert and oriented On 03/22/2021, patient was transferred to [facility] in [facility] for further care in stable condition. Medical Records Data Medical Nutrition Assessment Dietitian: Malnutrition Criteria Met Start: 03/19/21 16:28 Freq: Status: Active Protocol: Document 03/22/21 14:43 RMA (Rec: 03/22/21 14:43 RMA [id number]) Nutrition Malnutrition Evidence of Malnutrition Exists Yes Malnutrition (severe): Acute Illness/Injury Evidenced By Suboptimal Energy Intake ( Severe),Weight Loss (Severe), Physical Changes (Severe) Clinical Problem Acute Disease or Injury Related Malnutrition Etiology severe, acute malnutrition related to inadequate energy intake d/t resp. failure, acute illness Signs/Symptoms as evidenced by estimated PO intake meeting <50% of estimated nutritional needs >5 days, unintentional wt loss of 3.4kg/5.8% x 1 week prior to admission, severe muscle wasting/fat loss evident upon physical exam. Status Active Problem Recommendation Dietitian Recommendations/Changes Regular diet as tolerated once cleared for PO by [employer]. Will add oral nutrition supplements as diet advanced from NPO. Daily weights. Weight / BMI Weight Weight: 59.3 kg Body Mass Index (BMI) 18.1 ABG / Lab / Microbiology Data Result Diagrams: 03/22/21 04:25 03/22/21 04:25 Laboratory: Laboratory Results - last 24 hr 03/20/21 14:13: Miscellaneous Cytology SEE PATHOLOGY REPORT 03/22/21 04:25: Phosphorus 1.6 L, Magnesium 2.3 03/22/21 04:25: WBC 12.8 H, RBC 3.24 L, Hgb 9.6 L, Hct 31.5 L, MCV 97.2 H, MCH 29.6, MCHC 30.5 L, RDW Std Deviation 47.4 H, RDW Coeff of Vita 13.2, Plt Count 427, MPV 9.1, Neut % (Auto) Not Reportable, Absolute Neuts (auto) 10.0 H, Absolute Lymphs (auto) 1.15, Neutrophils % (Manual) 76 H, Band Neutrophils % 2, Lymphocytes % (Manual) 9 L, Monocytes % (Manual) 5, Eosinophils % (Manual) 2, Metamyelocytes % 1, Myelocytes % 1 H, Promyelocytes % 4 H, Diff Path Review Reviewed, Atypical Lymphocytes 1+, Platelet Estimate ADEQUATE, RBC Morphology NORM C+C, Target Cells 1+ 03/22/21 04:25: Sodium 141, Potassium 4.2, Chloride 110 H, Carbon Dioxide 27.0, Anion Gap 4 L, BUN 33 H, Creatinine 0.56 L, Estim Creat Clear Calc 58.48, Est GFR (MDRD) Af Amer 186, Est GFR (MDRD) Non-Af 154, BUN/Creatinine Ratio 58.9 H, Glucose 132 H, Calcium 7.9 L Microbiology: Microbiology 03/20/21 11:44 Sputum, Induced/Lukens Gram Stain - Final 03/20/21 11:44 Sputum, Induced/Lukens Respiratory Culture - Preliminary Loretta albicans 03/20/21 14:13 Fluid - Other Gram Stain - Final 03/20/21 14:13 Fluid - Other Body Fluid Culture - Preliminary No growth-Final to follow 03/20/21 14:13 Fluid - Other Anaerobic Culture - Preliminary No growth in 48 hours. 03/19/21 10:20 Blood Culture (Wb) - Anticubital Left Blood Culture - Preliminary No growth in 48 hours. 03/19/21 09:35 Blood Culture (Wb) - Anticubital Left Blood Culture - Preliminary No growth in 48 hours. 03/20/21 00:30 Urine, Random Legionella Antigen - Final 03/20/21 00:30 Urine, Random Streptococcus pneumoniae Antigen (M - Final 03/19/21 10:05 Nasal Secretion SARS-CoV-2 Antigen (Rapid) - Final ABG: ABG 03/22/21 03/22/21 07:25 10:57 Specimen Type ART ART Sample Site L Radial R Radial pH 7.40 7.35 Bicarbonate Actual 26.8 H 28.4 H Total CO2 28 30 Base Excess 2 3 H O2 Saturation 87 L 90 L O2 % 30 ABG pCO2 43.0 51.5 H ABG pO2 53 L 62 L Austin Test Positive O2 Delivery Device Cannula Liter Flow 5.0 Vent Mode CPAP/PS POC PEEP 5 POC Pressure Suppt 5 Radiography Diagnostic Testing: Radiology Impression Chest X-Ray 03/22/21 07:28 IMPRESSION: Stable positioning of the right chest tube. Persistent pleural-parenchymal changes at the right lung base although there has been improvement. Loculated fluid is once again seen in the right minor fissure. Electronically Signed: Juan Crum MD at 8:03 EDT , Service support , Meaningful Use Info Meaningful Use Diagnoses (Choose all that apply): None applicable Discharge Plan Admission Admit Date/Time: 03/19/21 13:33 Attending Provider: Rohan Arizmendi Primary Care Provider: Care Physician,No Primary Consulting Providers: Manny Bo ; Evens Vasquez ; Gerard Gibbs ; Rosmery Fish NP ; Landon Jacob Discharge Orders/Prescriptions Prescriptions: No Action albuterol sulfate 90 mcg/actuation HFA aerosol inhaler 2 puff INHALATION Q4H PRN (Reason: shortness of breath or wheezing) Qty: 8.5 RF: 6 Referrals / Follow Up: Care Physician,No Primary [Primary Care Provider] - Disposition Disposition (needs filled in before D/C Order can be placed): Acute Care Hospital Charges/Coding Visit Charges Inpatient E&M: 98678 Disch Hosp
== END 2021-03-22 20:30 | disposition short-term general hospital (02) | DRG 871 ==
LOC: ED 13:37 → ICU 14:06
PROVIDERS: Internal Medicine Critical Care Medicine; Admitting Provider Student in an Organized Health Care Education/Training Program; Emergency Provider Emergency Medicine; Visit Provider Internal Medicine
DX: A41.9 Sepsis, unspecified organism (principal); E43 Unspecified severe protein-calorie malnutrition; J18.9 Pneumonia, unspecified organism; J96.01 Acute respiratory failure with hypoxia; J96.02 Acute respiratory failure with hypercapnia; J86.9 Pyothorax without fistula; I47.1 Supraventricular tachycardia; J44.0 Chronic obstructive pulmonary disease with (acute) lower respiratory infection; Z68.1 Body mass index [BMI] 19.9 or less, adult; J90 Pleural effusion, not elsewhere classified; H54.3 Unqualified visual loss, both eyes; I95.9 Hypotension, unspecified; I48.91 Unspecified atrial fibrillation; Z87.891 Personal history of nicotine dependence
CPT/HCPCS: 31500; 31720; 32555; 36600; 71045; 71046; 71275; 80048; 80053; 80202; 82550; 82803; 82945; 83605; 83615; 83735; 84100; 84156; 84157; 84478; 84484; 85025; 85610; 85730; 87040; 87070; 87075; 87205; 87426; 87449; 88108; 88305; 88312; 88313; 89050; 93005; 93306; 94002; 94003; 94640; 94660; 97162; 97166; 97802; 97803; 99251; 99285; 99406; J7030; J7040; J7050; Q9967; A4216; G0463; J0153; J3010

== ENCOUNTER 2021-07-26 20:36 | Emergency (ER) | payer MEDICARE, MEDICAID, SELFPAY ==
[2021-07-26 20:42] VITALS: BP 117/51; PULSE 96; RESP 18; TEMP 36.3; O2SAT 100; BMI 17.4
[2021-07-26 20:44] VITALS: BP 117/51; PULSE 69; PULSE 75; RESP 107; RESP 20; TEMP 36.3; O2SAT 100
--- NOTE | 2021-07-26 20:47 | EKG12_ITS ---
Test Reason : SOB Blood Pressure : / mmHG Vent. Rate : 087 BPM Atrial Rate : 087 BPM P-R Int : 106 ms QRS Dur : 066 ms QT Int : 314 ms P-R-T Axes : 047 055 055 degrees QTc Int : 377 ms Sinus rhythm with short UT Anterior infarct , age undetermined Abnormal ECG Confirmed by KARYN CALLAWAY, KAMINI ([id number]), pictures editor HANNAH NARVAEZ ([id number]) on 07/30/2021 10:50:50 AM Referred By: PHILOMENA Confirmed By:KAMINI BOSS MD
--- NOTE | 2021-07-26 21:15 | RAD_ITS ---
INDICATION: hypoxia EXAMINATION/TECHNIQUE: X-RAY - XR Chest 1 View COMPARISON: Chest x-ray 03/20/2021, CT chest 03/19/2021. FINDINGS: LINES/DEVICES: Tracheostomy tube is present. LUNGS: Increased lung volumes with some hyperlucency in the upper lobes. Blunting left costophrenic angle and hazy increased attenuation likely representing pleural effusion. Overlying airspace disease not excluded. Minimal blunting right costophrenic angle with some thin linear opacities right lower lobe, lateral periphery may be associated with scarring. Previously seen complex pleural effusion is area is no longer present. No pneumothorax. No nodule or mass. MEDIASTINUM AND CARDIOVASCULAR STRUCTURES: Normal size and contour of the cardiomediastinal silhouette. No evidence of pulmonary vascular congestion. BONES AND SOFT TISSUES: No abnormality within limits of the exam. RAD/Chest 1 View (Portable) IMPRESSION: 1. Left pleural effusion with suspected overlying at least mild airspace disease. 2. Probable scarring right lung with interval resolution of previously seen complex pleural fluid. 3. Advanced emphysematous changes. Electronically Signed: Landon Lester DO at 21:58 EST ,
[2021-07-26 21:22] LABS: Absolute Lymphocyte Count 0.89 X10^3/uL (0.83-4.51); Absolute Neutrophil Count 4.5 X10^3/uL (2.0-7.7); Basophil# 0.01 X10^3/uL; Basophil% 0.2 % (0-1); Hematocrit 38.9 % (40-54); Hemoglobin 12.9 g/dL (13.0-16.5); Lymphocyte # 0.89 X10^3/ul (0.83-4.51); Lymphocyte % 15.1 % (19-41); Mean Corp Hgb Conc 33.2 g/dL (32-36); Mean Corpuscular Volume 93.5 fL (80-94); Mean Platelet Vol. 10.2 fl (6.2-12.0); Monocyte# 0.45 X10^3/uL; Monocyte% 7.6 % (0-10); NRBC Flagged by Analyzer 0 % (0-5); Neutrophil # 4.53 X10^3/uL (2.7-7.7); Neutrophil % 76.6 % (47-70); Platelet Count 183 K/mm3 (150-450); RBC Distribution Width CV 15.9 % (11.6-14.6); Red Blood Count 4.16 M/mm3 (4.6-6.2); White Blood Count 5.9 K/mm3 (4.4-11.0)
[2021-07-26 21:52] LABS: ALB/GLOB Ratio 0.7 RATIO (0.9-2.4); AST(SGOT) 49 U/L (15-37); Alanine Aminotransfer ALT/SGPT 22 U/L (16-61); Albumin, Serum 2.8 g/dL (3.2-5.0); Alkaline Phosphatase 65 U/L (45-117); Anion Gap 3 (5-15); BUN 22 mg/dL (7-18); BUN/Creat Ratio 29.2 RATIO (10-20); Calcium,Total 8.7 mg/dL (8.5-10.1); Chloride 96 mmol/L (98-107); Creatinine, Serum 0.75 mg/dL (0.70-1.30); EST Glomerular Filtration Rate 109 mL/min (>60); Est Glom Filt Rate - Afr Amer 132 mL/min (>60); Estimated Creatinine Clearance 52.78 ml/min; Glucose 82 mg/dL (74-106); Potassium 5.5 mmol/L (3.5-5.1); Protein, Total 6.8 g/dL (6.4-8.2); Sodium Level 136 mmol/L (136-145); Troponin-I HS 16 pg/mL (3.0-78.0)
[2021-07-26 22:02] LABS: Bacteria 0 SEEN /hpf (None Seen); Color, Urine Yellow (Yellow); Glucose, Dipstick Normal (Normal); Ketone-Dipstick Negative (Negative); Leukocyte Esterase-Dipstick Negative /ul (Negative); Mucous, Urine 0 SEEN /hpf (<or=2+); Nitrite-Dipstick Negative (Negative); Occult Blood-Urine 10 /ul (Negative); Protein-Dipstick 15 mg/dl (Negative); Red Blood Cells-Urine 0 SEEN /hpf (0-5); Squamous Epithelial Cells - UA 0 SEEN /hpf (0-5); Urine Bilirubin Dipstick Negative (Negative); Urine Clarity Clear (Clear); Urine Urobilinogen Normal (Normal); White Blood Cells 0 SEEN /hpf (0-5)
[2021-07-26 22:07] LABS: Partial Thromboplast Time 42.2 Seconds (24.1-36.2)
[2021-07-26 22:47] VITALS: BP 111/63; PULSE 83; RESP 30; TEMP 38.1; O2SAT 97
[2021-07-26 22:51] VITALS: O2SAT 97
[2021-07-26 23:00] VITALS: BP 101/50; PULSE 82; RESP 28; TEMP 38.1; O2SAT 92
[2021-07-26] MEDS: 0.9% Normal Saline 1,000 ML 999 ML IV (23:05)
--- NOTE | 2021-07-26 23:22 | EDS_ITS ---
HPI History of Present Illness Chief Complaint: Shortness of Breath Narrative Narrative: 70-year-old male presenting with concern for hypoxia. Apparently [facility] the prison they were trying to suction his oral airway and he was getting hypoxic. Patient states that he did feel maybe a little bit short of breath. He is not sure what his baseline rate of oxygen delivery is. He only replies its usually 87. Patient denies any fever, chills, cough. He does not have nausea or vomiting. He states that the nursing staff at his prison was hitting upset with him because he was not wanting to eat dinner. He states he was eating dinner because an hour before the tried to feed him there were given him tube feeds through his PEG tube and this would fill him up. He denies any chest pain or palpitations. He denies abdominal pain. He has no urinary complaints. [facility] Medical History Alcohol abuse Atrial fibrillation (03/19/21) COPD (chronic obstructive pulmonary disease) Former smoker Vision loss of left eye Vision loss of right eye Home Medications albuterol sulfate 90 mcg/actuation aerosol inhaler 2 puff INHALATION Q4H PRN #8.5 g 05/23/20 [Rx Last Taken 03/18/21] Allergy/AdvReac Type Severity Reaction Status Date / Time No Known Allergies Allergy Verified 07/26/21 20:46 Surgical History History of suburethral sling procedure Social History Smoking Status: Former smoker quit date: 03/30/20 pack-years: 50 Tobacco: How many years used: 50 ROS ROS ED Constitutional Constitutional ED: Denies chills or fever(s) Eyes Eyes: Denies blurry vision or diplopia ENT ENT ED: Denies rhinorrhea or sore throat Cardiovascular Cardiovascular: Denies chest pain or palpitations Respiratory/Chest Respiratory/Chest: Reports dyspnea; Denies cough or sputum Gastrointestinal Gastrointestinal: Denies abdominal pain, nausea or vomiting Genitourinary Genitourinary ED: Denies dysuria or hematuria Musculoskeletal Musculoskeletal: Denies arthralgias or myalgias Integumentary Denies abscess or rash Neurologic Neurologic: Denies headache(s) or weakness Psychiatric Psychiatric: Denies anxiety or depression EXAM Physical Exam Const Vital Signs: 07/26/21 20:42 07/26/21 20:44 07/26/21 22:47 Temperature 97.4 F L 97.4 F L 100.6 F H Temperature Source Temporal Temporal Temporal Pulse Rate 96 69 83 Respiratory Rate 18 20 H 30 H Respiratory Effort Respiratory Depth Respiratory Pattern Blood Pressure 117/51 L 117/51 L 111/63 Blood Pressure Mean 73 73 79 Pulse Ox 100 100 97 Oxygen Delivery Method Nasal Cannula Nasal Cannula Nasal Cannula Oxygen Flow Rate (L/min) 4 4 4 07/26/21 22:51 07/26/21 23:00 Temperature 100.6 F H Temperature Source Temporal Pulse Rate 82 Respiratory Rate 28 H Respiratory Effort Short of Breath Labored Respiratory Depth Shallow Respiratory Pattern Tachypnea Blood Pressure 101/50 L Blood Pressure Mean 67 Pulse Ox 92 Oxygen Delivery Method Nasal Cannula Nasal Cannula Oxygen Flow Rate (L/min) 10 5 Positive cachectic General Appearance ED: cachectic and NAD Nutritional Appearance: cachectic HEENT Reports moist mucous membranes atraumatic Eyes PERRL and EOMs intact bilaterally Neck no lymphadenopathy and supple Resp normal respiratory effort Auscultation: rales diffuse Cardio regular rate and regular rhythm Extremity normal to inspection General Extremety ED: Negative for edema or tenderness General Extremity: Negative for edema Neuro oriented x3 and CN's II-XII intact bilaterally Sensorium / Orientation: alert Psych mental status grossly normal Skin Lesions: no lesions Rashes: no rashes MDM MDM MDM Narrative Medical decision making narrative: Patient presents with reported hypoxia. This apparently was after he was being suctioned orally. Patient now on his baseline 5 L of oxygen maintaining sats 95%. He was still initially to be afebrile and then documented to have fever of 100.6. This was rechecked and without treatment the patient is afebrile. Is uncertain whether this is just an accurate readings. Patient does not feel ill. Due to patient's mild hypoxia and possible fever a sepsis work-up was obtained. EKG on my interpretation shows a sinus rhythm with a ventricular rate of 87 bpm without ischemic change. Chest x-ray on my interpretation shows a small left-sided pleural effusion. Does appear to be improvement in the right pleural effusion from previous visit. CBC shows no leukocytosis and his hemoglobin and hematocrit are stable. Platelets are normal. Renal function is normal however there is some slight prerenal azotemia and patient was given a liter of IV fluids especially since his potassium was 5.5. It was reported moderate hemolysis and this may be a false elevated potassium but I feel the patient clinically is a little bit dehydrated. Lactic acid is 1.0. LFTs are unremarkable. Coagulation studies are normal. Urinalysis is negative for infection. Patient's face was cleaned up from previous suction. We did shortly have to turn up his oxygen so he can suction him further. After this he is at his baseline oxygen level. We did confirm with the prison that he is on 5 L at baseline. This is what he is on currently. Covid test is negative. Given the patient is afebrile and his baseline I think he is stable for discharge home. Impression: 1. Dehydration 2. History of hypoxia resolved Lab Data Labs: Laboratory Results - last 24 hr 07/26/21 07/26/21 07/26/21 21:10 21:10 21:10 WBC 5.9 RBC 4.16 L Hgb 12.9 L Hct 38.9 L MCV 93.5 MCH 31.0 MCHC 33.2 RDW Std Deviation 55.0 H RDW Coeff of Vita 15.9 H Plt Count 183 MPV 10.2 Immature Gran % (Auto) 0.500 Neut % (Auto) 76.6 H Lymph % (Auto) 15.1 L [place] % (Auto) 7.6 Eos % (Auto) 0.0 Baso % (Auto) 0.2 Absolute Neuts (auto) 4.5 Absolute Lymphs (auto) 0.89 Nucleated RBC % 0 PT INR APTT Sodium 136 Potassium 5.5 H Chloride 96 L Carbon Dioxide 37.0 H Anion Gap 3 L BUN 22 H Creatinine 0.75 Estim Creat Clear Calc 52.78 Est GFR (MDRD) Af Amer 132 Est GFR (MDRD) Non-Af 109 BUN/Creatinine Ratio 29.2 H Glucose 82 Lactic Acid 1.0 Calcium 8.7 Total Bilirubin 0.50 AST 49 H ALT 22 Alkaline Phosphatase 65 Troponin I High Sens 16 Total Protein 6.8 Albumin 2.8 L Globulin 4.0 Albumin/Globulin Ratio 0.7 L Urine Color Urine Clarity Urine pH Ur Specific [place] Urine Protein Urine Glucose (UA) Urine Ketones Urine Occult Blood Urine Nitrite Urine Bilirubin Urine Urobilinogen Ur Leukocyte Esterase Urine RBC Urine WBC Ur Squamous Epith Cells Urine Bacteria Urine Mucus 07/26/21 07/26/21 21:50 21:54 WBC RBC Hgb Hct MCV MCH MCHC RDW Std Deviation RDW Coeff of Vita Plt Count MPV Immature Gran % (Auto) Neut % (Auto) Lymph % (Auto) [place] % (Auto) Eos % (Auto) Baso % (Auto) Absolute Neuts (auto) Absolute Lymphs (auto) Nucleated RBC % PT 13.0 INR 1.0 APTT 42.2 H Sodium Potassium Chloride Carbon Dioxide Anion Gap BUN Creatinine Estim Creat Clear Calc Est GFR (MDRD) Af Amer Est GFR (MDRD) Non-Af BUN/Creatinine Ratio Glucose Lactic Acid Calcium Total Bilirubin AST ALT Alkaline Phosphatase Troponin I High Sens Total Protein Albumin Globulin Albumin/Globulin Ratio Urine Color Yellow Urine Clarity Clear Urine pH 6.0 Ur Specific [place] 1.020 Urine Protein 15 H Urine Glucose (UA) Normal Urine Ketones Negative Urine Occult Blood 10 H Urine Nitrite Negative Urine Bilirubin Negative Urine Urobilinogen Normal Ur Leukocyte Esterase Negative Urine RBC 0 SEEN Urine WBC 0 SEEN Ur Squamous Epith Cells 0 SEEN Urine Bacteria 0 SEEN Urine Mucus 0 SEEN Radiography Diagnostic Testing: Clinical Impression(s) from Imaging Studies Chest X-Ray 07/26/21 21:15 IMPRESSION: 1. Left pleural effusion with suspected overlying at least mild airspace disease. 2. Probable scarring right lung with interval resolution of previously seen complex pleural fluid. 3. Advanced emphysematous changes. Electronically Signed: Landon Lester DO at 21:58 EST , Discharge Plan Triage Chief Complaint: Shortness of Breath ED Provider: Richard Morrison Dx/Rx/DC Orders Prescriptions: No Action albuterol sulfate 90 mcg/actuation HFA aerosol inhaler 2 puff INHALATION Q4H PRN (Reason: shortness of breath or wheezing) Qty: 8.5 RF: 6 Primary Care Provider: Aleyda Ny
[2021-07-27 00:10] VITALS: BP 116/56; PULSE 81; RESP 25; TEMP 37.3; O2SAT 100
[2021-07-27 00:44] VITALS: TEMP 37.7
[2021-07-27 00:49] VITALS: BP 104/53; PULSE 75; RESP 27; TEMP 37.7; O2SAT 100
== END 2021-07-27 02:20 | disposition home or self-care (01) ==
PROVIDERS: Emergency Provider Student in an Organized Health Care Education/Training Program; PCP Internal Medicine; Visit Provider Student in an Organized Health Care Education/Training Program
DX: E86.0 Dehydration (principal); Z87.891 Personal history of nicotine dependence; Z79.899 Other long term (current) drug therapy
CPT/HCPCS: 31720; 36415; 71045; 80053; 81001; 83605; 84484; 85025; 85610; 85730; 87040; 87086; 87088; 87426; 93005; 96360; 99285; A4216

== ENCOUNTER 2021-07-27 18:45 | Inpatient (IN) | payer MEDICARE, MEDICAID, SELFPAY ==
[2021-07-27] VITALS (8 sets, daily range): BP systolic 79–103; BP diastolic 51–65; PULSE 72–83; RESP 14–36; TEMP 36.6–37; O2SAT 91–100; BMI 19.7; BMI 18.6
--- NOTE | 2021-07-27 19:06 | EKG12_ITS ---
Test Reason : DYSRHYTHMIA Blood Pressure : / mmHG Vent. Rate : 077 BPM Atrial Rate : 077 BPM P-R Int : 120 ms QRS Dur : 096 ms QT Int : 376 ms P-R-T Axes : 075 057 058 degrees QTc Int : 425 ms Normal sinus rhythm Low voltage QRS Borderline ECG Confirmed by KARYN CALLAWAY, KAMINI ([id number]), restaurant expeditor HANNAH NARVAEZ ([id number]) on 07/30/2021 10:25:05 AM Referred By: TL Confirmed By:KAMINI BOSS MD
--- NOTE | 2021-07-27 19:06 | CT_ITS ---
STUDY: CT BRAIN WITHOUT CONTRAST REASON FOR EXAM: Male, 70 years old. altered mental status RADIATION DOSAGE (If Supplied By Facility): CTDIvol = ( 44.99 ) mGy, DLP = ( 863.60 ) mGycm TECHNIQUE: Transaxial CT imaging of the brain was performed without administration of intravenous contrast material. Individualized dose optimization techniques were used for this CT. COMPARISON: No relevant priors. FINDINGS: Normal soft tissue structures. Normal calvarium. Mild atrophy and moderate periventricular white matter ischemic changes.. Normal basal ganglia and thalami. Normal brainstem. Normal cerebellum. There is no intracranial hemorrhage. There are no findings of an acute ischemic infarction. Moderate mucosal thickening of the sphenoid sinus. Moderate mucosal thickening of the maxillary sinuses bilaterally. Mild mucosal thickening of the ethmoid sinuses bilaterally CT/Brain/Head without Contrast IMPRESSION: Atrophy and moderate periventricular white matter ischemic changes. No acute bleed. If concern for acute infarct MRI recommended. Electronically Signed: David Theodore MD at 19:58 EST ,
--- NOTE | 2021-07-27 19:35 | RAD_ITS ---
STUDY: X-RAY CHEST REASON FOR EXAM: Male, 70 years old. cough TECHNIQUE: AP portable COMPARISON: 07/26/2021 FINDINGS: Chronic interstitial and emphysematous changes. Mild subsegmental atelectasis in the right lower lobe.. Small left pleural effusion and consolidation of left lower lobe. Heart is enlarged.. Normal mediastinum and genaro. Normal visualized pulmonary arteries. Normal visualized aortic arch and descending thoracic aorta. Tracheostomy noted within the midline Normal visualized thoracic spine. Normal visualized ribs, clavicles, and shoulders. There is no demonstrated abnormality of the visualized soft tissue structures of the upper abdomen. RAD/Chest 1 View (Portable) IMPRESSION: Chronic interstitial and emphysematous changes. Minor subsegmental atelectasis in right lower lobe.. Small left pleural effusion and left lower lobe atelectasis or infiltrate Electronically Signed: David Theodore MD at 20:06 EST ,
[2021-07-27 19:36] LABS: Allen Test Positive; Base Excess 12 mmol/L (-2 to +2); Bicarbonate 39.1 mmol/L (22-26); Blood Gas Specimen Type ART; O2 Delivery Device Cannula; PO2 54 mmHG (75-100); SITE L Radial; SO2 79 % (95-99); Total Carbon Dioxide 42 mmol/L; pCO2 90.6 mmHg (35-45); pH 7.24 (7.35-7.45)
[2021-07-27 19:40] LABS: Absolute Lymphocyte Count 0.36 X10^3/uL (0.83-4.51); Absolute Neutrophil Count 7.3 X10^3/uL (2.0-7.7); Basophil# 0.01 X10^3/uL; Basophil% 0.1 % (0-1); Hematocrit 35.3 % (40-54); Hemoglobin 11.1 g/dL (13.0-16.5); Lymphocyte # 0.36 X10^3/ul (0.83-4.51); Lymphocyte % 4.6 % (19-41); Mean Corp Hgb Conc 31.4 g/dL (32-36); Mean Corpuscular Hgb 29.9 pg (27.0-32.0); Mean Corpuscular Volume 95.1 fL (80-94); Mean Platelet Vol. 9.7 fl (6.2-12.0); Monocyte# 0.16 X10^3/uL; Monocyte% 2.1 % (0-10); NRBC Flagged by Analyzer 0 % (0-5); Neutrophil # 7.25 X10^3/uL (2.7-7.7); Neutrophil % 93.1 % (47-70); POSITIVE DIFFERENTIAL YES; Platelet Count 174 K/mm3 (150-450); RBC Distribution Width CV 15.9 % (11.6-14.6); RBC Distribution Width SD 55.9 fl (35.1-43.9); Red Blood Count 3.71 M/mm3 (4.6-6.2); White Blood Count 7.8 K/mm3 (4.4-11.0)
[2021-07-27 19:49] LABS: Differential Indicated SCAN CRITERIA MET
[2021-07-27 19:58] LABS: ALB/GLOB Ratio 0.7 RATIO (0.9-2.4); AST(SGOT) 17 U/L (15-37); Alanine Aminotransfer ALT/SGPT 15 U/L (16-61); Albumin, Serum 2.6 g/dL (3.2-5.0); Alkaline Phosphatase 56 U/L (45-117); Anion Gap 1 (5-15); BUN 32 mg/dL (7-18); Calcium,Total 8.5 mg/dL (8.5-10.1); Chloride 100 mmol/L (98-107); Creatinine, Serum 0.82 mg/dL (0.70-1.30); EST Glomerular Filtration Rate 99 mL/min (>60); Est Glom Filt Rate - Afr Amer 119 mL/min (>60); Estimated Creatinine Clearance 66.62 ml/min; Globulin 3.5 g/dL (2.2-4.2); Glucose 226 mg/dL (74-106); Potassium 4.4 mmol/L (3.5-5.1); Protein, Total 6.1 g/dL (6.4-8.2); Sodium Level 137 mmol/L (136-145)
--- NOTE | 2021-07-27 20:07 | EDS_ITS ---
HPI History of Present Illness Chief Complaint: Mental Status Change Informant: EMS Narrative Narrative: Brought in from [facility] for hypoxia and increasing altered mental status today. Patient seen yesterday discharge from the ED early mornings. He is awake and alert and oriented x3 at that time. Increasing confusion currently. From records reported he was off oxygen he was 75% oxygen was replaced back on unclear how long he was off oxygen for. Reported that when he got back from being discharged from the hospital it was not placed on. From records he was started on IV antibiotics of Rocephin and Zithromax through a midline left arm. History of COPD. From records history of an empyema on the right side with chest tube placement in February. He was transferred to a tertiary center after a short hospital stay, he ended up with a tracheostomy and a PEG tube. From the note yesterday he was awake alert adamant about returning back to the facility. Patient is a full CODE STATUS. Blood pressure was soft and borderline on arrival. [facility] Medical History (Updated 07/27/21 @ 20:[address] Nancy Tafoya MD) Alcohol abuse Atrial fibrillation (03/19/21) COPD (chronic obstructive pulmonary disease) Former smoker Vision loss of left eye Vision loss of right eye Home Medications albuterol sulfate 90 mcg/actuation aerosol inhaler 2 puff INHALATION Q4H PRN #8.5 g 05/23/20 [Rx Last Taken 03/18/21] azithromycin 250 mg PO DAILY 07/27/21 [History Last Taken Unknown] buspirone 15 mg PO TID PRN 07/27/21 [History Last Taken Unknown] dexamethasone [Decadron] 4 mg PO DAILY 07/27/21 [History Last Taken Unknown] enoxaparin 40 mg SUBCUT DAILY 07/27/21 [History Last Taken Unknown] famotidine 20 mg PO BID 07/27/21 [History Last Taken Unknown] furosemide 20 mg PO DAILY 07/27/21 [History Last Taken Unknown] guaifenesin 200 mg PO Q4H PRN 07/27/21 [History Last Taken Unknown] loperamide 2 mg PO Q6H PRN 07/27/21 [History Last Taken Unknown] magnesium oxide 400 mg PO DAILY 07/27/21 [History Last Taken Unknown] melatonin 3 mg PO DAILY 07/27/21 [History Last Taken Unknown] mirtazapine [Remeron] 7.5 mg PO DAILY 07/27/21 [History Last Taken Unknown] prednisone 10 mg PO DAILY 07/27/21 [History Last Taken Unknown] Allergy/AdvReac Type Severity Reaction Status Date / Time No Known Allergies Allergy Verified 07/27/21 18:52 Family History (Updated 07/27/21 @ 20:[address] Nancy Tafoya MD) Father BPH (benign prostatic hyperplasia) Grandfather BPH (benign prostatic hyperplasia) Surgical History (Updated 07/27/21 @ 20:[address] Nancy Tafoya MD) H/O nasal septoplasty History of suburethral sling procedure History of thoracic surgery S/P TURP Social History (Updated 07/27/21 @ 20:[address] Nancy Tafoya MD) [facility] Smoking Status: Former smoker quit date: 03/30/20 pack-years: 50 Tobacco: How many years used: 50 how long ago did patient quit smoking: Smoked since 01/28/1967m 1 ppd until quit. alcohol intake: former substance use type: does not use ROS ROS ED Review of Systems ROS Unobtainable: due to mental condition and due to mental status EXAM Physical Exam Const Vital Signs: 07/27/21 18:47 07/27/21 18:52 07/27/21 19:00 Temperature 98.4 F 98.4 F Temperature Source Temporal Temporal Pulse Rate 83 83 Respiratory Rate 27 H 36 H Respiratory Pattern Blood Pressure 92/51 L 92/51 L Blood Pressure Mean 64 64 Pulse Ox 100 97 91 Oxygen Delivery Method Non-Rebreather Nasal Cannula Nasal Cannula Oxygen Flow Rate (L/min) 4 4 Fraction of Inspired Oxygen (FIO2) 07/27/21 19:16 07/27/21 19:17 07/27/21 19:52 Temperature 98 F Temperature Source Temporal Pulse Rate 80 78 Respiratory Rate 26 H 15 Respiratory Pattern Blood Pressure 90/52 L 79/65 L Blood Pressure Mean 64 69 Pulse Ox 93 99 Oxygen Delivery Method Nasal Cannula Nasal Cannula Bi-pap Oxygen Flow Rate (L/min) 6 6 Fraction of Inspired Oxygen (FIO2) 35 07/27/21 19:54 Temperature Temperature Source Pulse Rate 79 Respiratory Rate 21 H Respiratory Pattern Tachypnea Blood Pressure Blood Pressure Mean Pulse Ox 96 Oxygen Delivery Method Oxygen Flow Rate (L/min) Fraction of Inspired Oxygen (FIO2) 70 Positive cachectic Constitutional Narrative: Patient on nasal cannula 6 L, no respiratory distress. Patient unable to follow commands. Pulse ox was 89%. General Appearance ED: cachectic Nutritional Appearance: cachectic HEENT Reports moist mucous membranes normocephalic and atraumatic Eyes PERRL, EOMs intact bilaterally and conjunctivae normal General Eye ED: Yes normal appearance of both eyes Neck no lymphadenopathy and supple Neck Narrative: Tracheostomy tube, deflated, dry crusting around this. No drainage. General: Negative for tenderness Chest Wall Chest: Negative for tenderness Resp normal respiratory effort and normal air movement Effort and Inspection: symmetric chest movement; Negative for respiratory distress Cardio regular rate, regular rhythm and no murmurs Peripheral Pulses: pulses 2+ throughout GI normal to inspection, nondistended, normoactive bowel sounds and non-tender GI Narrative: PEG tube intact. Palpation: Negative for guarding or rebound tenderness present Back/Spine no CVA tenderness and no thoracic nor lumbar tenderness Extremity normal to inspection General Extremety ED: Negative for edema or tenderness General Extremity: Negative for edema Neuro Sensorium / Orientation: awake and lethargic MDM MDM MDM Narrative Medical decision making narrative: Patient blood pressure in the 80s, tachypneic. He is requiring increasing oxygen. ABG notes a pH of 7.2, PCO2 of 90, PaO2 of 53. CT brain obtained negative. Patient placed on a BiPAP due to hypercapnia. This will also help with hypoxia. Chest x-ray notes concerning for worsening infiltrate left lower lobe compared to yesterday's x-ray. He was started on Rocephin and Zithromax today. With hypotension will broaden with Zosyn and vancomycin. He was ordered for 2 L of fluids which is over the 30 cc/kg bolus. After 1 L remained hypotensive. Discussed with patient was able to blink to understand about central line placement due to hypotension for line access. He had a midline the left arm. This was placed with no difficulties. Labs returned white count 7.8 hemoglobin 7.1 creatinine 0.82. Potassium 4.4. Lactic acid 2.0. I did discuss with hospitalist Dr. Tafoya for admission to ICU. He was on steroids at the facility will give hydrocortisone due to the hypotension. Procedure note: Central line placement. Emergent due to hypotension. Normal full sterile conditions. Full drapes were used. Ultrasound used to visualize the right IJ prior to procedure. ChloraPrep prep of the right neck region. Lidocaine 1% for local analgesia. Ultrasound guided Seldinger technique first stick dark blood right IJ. Guidewire advanced, skin incision, skin dilated. Triple-lumen cath placed 15 cm at the neck. Secured all 3 lines flushed. Biopatch was placed. Dressing was placed. Patient tolerated procedure well. I placed an ultrasound to check the lung coppola bilaterally, there is no pneumothorax on ultrasound. Lung sliding bilaterally. And pending. Post chest x-ray films obtained. Results with good line placement. No pneumothorax. Patient will be admitted to the ICU. Lab Data Attestation: I reviewed the patient's lab results. Labs: Laboratory Results - last 24 hr 07/27/21 07/27/21 07/27/21 19:00 19:00 19:00 WBC 7.8 RBC 3.71 L Hgb 11.1 L Hct 35.3 L MCV 95.1 H MCH 29.9 MCHC 31.4 L D RDW Std Deviation 55.9 H RDW Coeff of Vita 15.9 H Plt Count 174 MPV 9.7 Immature Gran % (Auto) 0.100 Neut % (Auto) 93.1 H Lymph % (Auto) 4.6 L [place] % (Auto) 2.1 Eos % (Auto) 0.0 Baso % (Auto) 0.1 Absolute Neuts (auto) 7.3 Absolute Lymphs (auto) 0.36 L Nucleated RBC % 0 Differential Comment Platelet Estimate ADEQUATE RBC Morphology NORM C+C PT 12.5 INR 1.0 APTT 36.9 H Sodium 137 Potassium 4.4 Chloride 100 Carbon Dioxide 36.0 H Anion Gap 1 L BUN 32 H Creatinine 0.82 Estim Creat Clear Calc 66.62 Est GFR (MDRD) Af Amer 119 Est GFR (MDRD) Non-Af 99 BUN/Creatinine Ratio 39.0 H Glucose 226 H Lactic Acid Calcium 8.5 Magnesium Total Bilirubin 0.20 AST 17 ALT 15 L Alkaline Phosphatase 56 Total Protein 6.1 L Albumin 2.6 L Globulin 3.5 Albumin/Globulin Ratio 0.7 L 07/27/21 07/27/21 19:00 19:50 WBC RBC Hgb Hct MCV MCH MCHC RDW Std Deviation RDW Coeff of Vita Plt Count MPV Immature Gran % (Auto) Neut % (Auto) Lymph % (Auto) Summit % (Auto) Eos % (Auto) Baso % (Auto) Absolute Neuts (auto) Absolute Lymphs (auto) Nucleated RBC % Differential Comment Platelet Estimate RBC Morphology PT INR APTT Sodium Potassium Chloride Carbon Dioxide Anion Gap BUN Creatinine Estim Creat Clear Calc Est GFR (MDRD) Af Amer Est GFR (MDRD) Non-Af BUN/Creatinine Ratio Glucose Lactic Acid 2.0 Calcium Magnesium 2.4 Total Bilirubin AST ALT Alkaline Phosphatase Total Protein Albumin Globulin Albumin/Globulin Ratio ABG Data ABG results: ABG 07/27/21 19:27 Specimen Type ART Sample Site L Radial pH 7.24 L Bicarbonate Actual 39.1 H Total CO2 42 Base Excess 12 H O2 Saturation 79 L ABG pCO2 90.6 H* ABG pO2 54 L Austin Test Positive O2 Delivery Device Cannula Liter Flow 6.0 Crit Call To/Read Back Yes Blood Gas Notified Whom Li Radiography Chest X-Ray - ED: 1 View, Read by ED Physician and Read by Radiologist Diagnostic Testing: Clinical Impression(s) from Imaging Studies Brain CT 07/27/21 19:06 IMPRESSION: Atrophy and moderate periventricular white matter ischemic changes. No acute bleed. If concern for acute infarct MRI recommended. Electronically Signed: David Theodore MD at 19:58 EST , Chest X-Ray 07/27/21 19:35 IMPRESSION: Chronic interstitial and emphysematous changes. Minor subsegmental atelectasis in right lower lobe.. Small left pleural effusion and left lower lobe atelectasis or infiltrate Electronically Signed: David Theodore MD at 20:06 EST , EKG Initial EKG: Attestation: I personally reviewed and interpreted this EKG as follows: Comments: Sinus rate of 77, no ST or T wave changes. Critical Care Time Critical Care Time: Yes Critical care time (excluding procedures): 30-74 minutes, Discussing w/Patient &/or Family/Telegraph Dispatcher, Discussing w/Consultants, Arranging Admission or Transfer, Performing Direct Patient Care at Bedside and - (50 minutes) Discharge Plan Dx/Rx/DC Orders Clinical Impression: Sepsis with acute hypoxic respiratory failure, HCAP (healthcare-associated pneumonia), Acute on chronic respiratory failure with hypoxia and hypercapnia, Hypotension Disposition Disposition: [facility] Care [facility] Discharge Date/Time: 07/27/21 21:24
[2021-07-27 20:16] LABS: Partial Thromboplast Time 36.9 Seconds (24.1-36.2); Platelet Estimate ADEQUATE (ADEQ); Prothrombin Time (Protime)PT. 12.5 SECONDS (11.7-14.9); Red Cell Morphology NORM C+C NORMAL (NORM C&C)
--- NOTE | 2021-07-27 20:18 | HP.PCM.HOS_ITS ---
HPI - General General Date of Admission: 07/27/21 Date of Service: 07/27/21 Chief Complaint: Hypoxia, confusion HPI Narrative The patient is a 70 y/o M w/ PMHx: Severe protein calorie malnutrition, Chronic BL vision loss, PAF, Chronic COPD w/ Chronic Hypoxic Respiratory Failure (4-5L NC) on chronic steroids, Hx EtOH abuse, Former Tobacco use, Hx recent empyema with prolonged hospitalization with eventual PEG/trach placement currently onh purree texture and nectar thickened diet residing at SNF who initially presented to the [facility] ED on 07/26/21 with dyspnea complaint with nursing facility difficulty with suctioning and episodes of hypoxia associated with improvement and appropriate saturation on his home oxygen discharged to SNF started on rocephin and azithromycin at the facility who now re-presents to the [facility] ED on 07/27/21 secondary to worsening hypoxia, unfortunately noted to have been left off his oxygen for several hours (6 hours) with severe hypoxia, encephalopathy resulting prompting ED return. Work-up in the ED included T 98 4, heart rate 83, BP initially 92/51 but did decrease to 79/65, respiratory rate 27, initially upon presentation 100% on a nonrebreather eventually attempted transition to nasal cannula with 6 L however had continued work of breathing therefore transitioned to BiPAP with 70% FiO2 noted to be at 96% with improvement in respiratory rate, CBC with WC 7.8, hemoglobin 1.1, platelet 174 with lymphopenia, unremarkable coags, ABG with pH 7.24, O2 saturation 79%, PCO2 90.6, PO2 54 performed on 6 L nasal cannula, CMP was contacted 36, BUN/creatinine 32/0.82, glucose 226, lactic acid 2.0, blood culture x2 pending per ED, chest x-ray with chronic interstitial and emphysematous changes with minor subsegmental atelectasis right lower lobe with a small effusion on the left and left lower lobe atelectasis versus infiltrate, CT the brain with atrophy and moderate periventricular white matter ischemic changes with no acute intracranial findings otherwise, EKG was sinus rhythm with no acute evidence of ischemia. In the ED given patient's hypotension central line placed per ED physician. In ED patient ministered Zosyn, vancomycin, normal saline bolus as well as hydrocortisone 100 mg load IV x1 given chronic steroid usage. [facility] Medical History (Updated 07/27/21 @ 20:[address] Nancy Tafoya MD) Alcohol abuse Atrial fibrillation (03/19/21) COPD (chronic obstructive pulmonary disease) Former smoker Vision loss of left eye Vision loss of right eye Home Medications albuterol sulfate 90 mcg/actuation aerosol inhaler 2 puff INHALATION Q4H PRN #8.5 g 05/23/20 [Rx Last Taken 03/18/21] Allergy/AdvReac Type Severity Reaction Status Date / Time No Known Allergies Allergy Verified 07/27/21 18:52 Family History (Updated 07/27/21 @ 20:[address] Nancy Tafoya MD) Father BPH (benign prostatic hyperplasia) Grandfather BPH (benign prostatic hyperplasia) Surgical History (Updated 07/27/21 @ 20:[address] Nancy Tafoya MD) H/O nasal septoplasty History of suburethral sling procedure History of thoracic surgery S/P TURP Social History (Updated 07/27/21 @ 20:[address] Nancy Tafoya MD) housing: custodial Smoking Status: Former smoker quit date: 03/30/20 pack-years: 50 Tobacco: How many years used: 50 how long ago did patient quit smoking: Smoked since 01/28/1967m 1 ppd until quit. alcohol intake: former substance use type: does not use ROS Review of Systems ROS Unobtainable: due to encephalopathy Vital Signs Vital Signs Vital Signs: 07/27/21 18:47 07/27/21 18:52 07/27/21 19:00 Temperature 98.4 F 98.4 F Temperature Source Temporal Temporal Pulse Rate 83 83 Respiratory Rate 27 H 36 H Respiratory Pattern Blood Pressure 92/51 L 92/51 L Blood Pressure Mean 64 64 Pulse Ox 100 97 91 Oxygen Delivery Method Non-Rebreather Nasal Cannula Nasal Cannula Oxygen Flow Rate (L/min) 4 4 Fraction of Inspired Oxygen (FIO2) 07/27/21 19:16 07/27/21 19:17 07/27/21 19:54 Temperature Temperature Source Pulse Rate 80 79 Respiratory Rate 26 H 21 H Respiratory Pattern Tachypnea Blood Pressure 90/52 L Blood Pressure Mean 64 Pulse Ox 93 96 Oxygen Delivery Method Nasal Cannula Nasal Cannula Oxygen Flow Rate (L/min) 6 6 Fraction of Inspired Oxygen (FIO2) 35 07/27/21 19:56 Temperature 98 F Temperature Source Temporal Pulse Rate 78 Respiratory Rate 15 Respiratory Pattern Blood Pressure 79/65 L Blood Pressure Mean 69 Pulse Ox 99 Oxygen Delivery Method Bi-pap Oxygen Flow Rate (L/min) Fraction of Inspired Oxygen (FIO2) 35 Weight Weight: 122 lb 2.177 oz Body Mass Index (BMI) 19.7 Physical Exam Narrative Physical Examination: General: Patient more awake, more alert, oriented to self, place and some recent events, still very fatigued and falling back asleep, BiPAP being placed, following some commands, increased respiratory rate and accessory muscle usage evident. Skin: Normal color, normal turgor, no icterus, no cyanosis except occasional ecchymoses. HEENT: AT/NC, EOMI, PERRLA, dry MM, BiPAP not being placed, no carotid bruits or JVD noted, trach capped. Lungs: Severely diminished, greater bases, left greater than right, increased respiratory rate and accessory muscle usage, BiPAP being placed, no significant wheezing or marked rales. Heart: Currently regular rate and rhythm; no gallop, rub audible. Abdomen: Soft, thin and cachectic, NTTP, ND, distant normal BS, no HSM. Extremities: No cyanosis, clubbing, or edema. Neurological: Patient awake, alert, oriented as noted, cognitive function improving, still not at baseline; pupils equally reactive to light and accommodation, cranial nerves II-XII grossly normal, moving all 4 extremities, no focal deficits, strength severely global decrease secondary to acute presentation Psychiatric: Affect appears fatigued, lethargic, respiratory distress is lessening, no acute evidence of depressive or anxiety feelings. Results Lab / Micro Data Result Diagrams: 07/27/21 19:00 07/27/21 19:00 Labs: Laboratory Results - last 24 hr 07/27/21 19:00: WBC 7.8, RBC 3.71 L, Hgb 11.1 L, Hct 35.3 L, MCV 95.1 H, MCH 29.9, MCHC 31.4 L D, RDW Std Deviation 55.9 H, RDW Coeff of Vita 15.9 H, Plt Count 174, MPV 9.7, Immature Gran % (Auto) 0.100, Neut % (Auto) 93.1 H, Lymph % (Auto) 4.6 L, Cross % (Auto) 2.1, Eos % (Auto) 0.0, Baso % (Auto) 0.1, Absolute Neuts (auto) 7.3, Absolute Lymphs (auto) 0.36 L, Nucleated RBC % 0, Differential Comment , Platelet Estimate ADEQUATE, RBC Morphology NORM C+C 07/27/21 19:00: PT 12.5, INR 1.0, APTT 36.9 H 07/27/21 19:00: Sodium 137, Potassium 4.4, Chloride 100, Carbon Dioxide 36.0 H, Anion Gap 1 L, BUN 32 H, Creatinine 0.82, Estim Creat Clear Calc 66.62, Est GFR (MDRD) Af Amer 119, Est GFR (MDRD) Non-Af 99, BUN/Creatinine Ratio 39.0 H, Glucose 226 H, Calcium 8.5, Total Bilirubin 0.20, AST 17, ALT 15 L, Alkaline Phosphatase 56, Total Protein 6.1 L, Albumin 2.6 L, Globulin 3.5, Albumin/Globulin Ratio 0.7 L ABG Data ABG results: ABG 07/27/21 19:27 Specimen Type ART Sample Site L Radial pH 7.24 L Bicarbonate Actual 39.1 H Total CO2 42 Base Excess 12 H O2 Saturation 79 L ABG pCO2 90.6 H* ABG pO2 54 L Austin Test Positive O2 Delivery Device Cannula Liter Flow 6.0 Crit Call To/Read Back Yes Blood Gas Notified Whom Li Radiology Impression Brain CT 07/27/21 19:06 IMPRESSION: Atrophy and moderate periventricular white matter ischemic changes. No acute bleed. If concern for acute infarct MRI recommended. Electronically Signed: David Theodore MD at 19:58 EST , Chest X-Ray 07/27/21 19:35 IMPRESSION: Chronic interstitial and emphysematous changes. Minor subsegmental atelectasis in right lower lobe.. Small left pleural effusion and left lower lobe atelectasis or infiltrate Electronically Signed: David Theodore MD at 20:06 EST , Assessment & Plan Assessment/Plan (1) HCAP (healthcare-associated pneumonia): (2) Acute on chronic respiratory failure with hypoxia and hypercapnia: (3) Sepsis: QUALIFIERS: Sepsis type: sepsis due to unspecified organism Sepsis acute organ dysfunction status: unspecified Qualified Code(s): A41.9 - Sepsis, unspecified organism PLAN: The patient is a 70 y/o M w/ PMHx: Severe protein calorie malnutrition, Chronic BL vision loss, PAF, Chronic COPD w/ Chronic Hypoxic Respiratory Failure (4-5L NC) on chronic steroids, Hx EtOH abuse, Former Tobacco use, Hx recent empyema with prolonged hospitalization with eventual PEG/trach placement who presents to the [facility] ED on 07/27/21 secondary to worsening hypoxia, unfortunately noted to have been left off his oxygen for several hours (6 hours) with severe hypoxia, encephalopathy. #1. Acute Encephalopathy secondary to Acute Hypoxic and Hypercarbic Respiratory Failure on Chronic secondary to Possible Pneumonia, Possible GN/GP Organism with Hypotension, elevated SOFA scoring complicated by #2, #3: Will admit to the ICU, will continue BIPAP, plan repeat ABG in 1 hour following BIPAP start and PRN, ICU physician consulted, maintain on oxygen with wean as tolerated to home oxygen supplementation, continue ATC duonebs, PRN albuterol, maintained on IV Zosyn and Vancomycin w/ pending MRSA screen with de-escalation as able, HOB, IS parameters w/ pending sputum cultures, respiratory viral panel and urine antigens. Bld cx x 2 obtained in the ED. Central line being placed secondary to hypotension. If MAP < 65 despite 30 cc/kg ED initiated bolus would plan NEP start. Also given chronic steroid usage, noted to be on both for some reason prednisone and Decadron per facility chart we will continue stress dose steroids with first dose administered in the ED. Requested also COVID PCR. #2. History of prolonged hospitalization with empyema: From records potentially patient had an empyema but no VATS per report with prolonged hospitalization and eventual PEG tube as well as trach placement. Given #1 could potentially be associated with aspiration although patient is on an altered pur?ed texture and nectar thickened diet will request speech therapy involvement once patient encephalopathy is improved. #3. Chronic COPD with chronic hypoxic respiratory failure: Complicates presentation #1, likely contributing, will continue treatment with BiPAP as noted above, maintain on ATC duonebs, PRN albuterol, HOB, IS parameters. #4. PAF: We will hold any beta-antoinette therapy, awaiting confirmation of skilled facility list, also awaiting clarification if anticoagulated. #5. Severe protein calorie malnutrition: Evidenced by reduced BMI, body habitus with notable muscle and fat loss, cachectic, nutrition consulted. #6. Former tobacco use: Encourage continued tobacco cessation. #7. Former alcohol abuse: Noted in history, prior records do state occasional only, will encourage continued sobriety. #8. GI prophylaxis: IV famotidine while n.p.o. with BiPAP. #9. DVT prophylaxis: SCDs, Lovenox. #10. CODE status: Patient does not have healthcare power of enterprise integration developer nor living will he notes. Given his orientation has improved did discuss his current status and CODE status at length including difference between FULL code, DNR-CCA and DNR-CC status. Following discussions about the differences in these status, requested Full Code status. Advanced Care Planning Face to Face Time: 16 minutes. Charges/Coding Visit Charges Inpatient E&M: 58845 Init Hosp L3 Procedures Hospitalists Procedures: 44765 Advncd Care Plan 30 Min
[2021-07-27 20:44] LABS: Bacteria 0 SEEN /hpf (None Seen); Mucous, Urine 0 SEEN /hpf (<or=2+); Squamous Epithelial Cells - UA 0 SEEN /hpf (0-5)
[2021-07-27 20:58] LABS: Color, Urine Yellow (Yellow); Glucose, Dipstick Normal (Normal); Ketone-Dipstick Negative (Negative); Leukocyte Esterase-Dipstick Negative /ul (Negative); Nitrite-Dipstick Negative (Negative); Occult Blood-Urine 50 /ul (Negative); Protein-Dipstick 30 mg/dl (Negative); Specific Gravity, Urine 1.025 (1.002-1.030); Urine Bilirubin Dipstick Negative (Negative); Urine Clarity Clear (Clear); Urine Urobilinogen Normal (Normal)
[2021-07-27 21:17] LABS: Red Blood Cells-Urine 0-5 SEEN /hpf (0-5); White Blood Cells 0-5 SEEN /hpf (0-5)
--- NOTE | 2021-07-27 21:21 | RAD_ITS ---
STUDY: X-RAY CHEST REASON FOR EXAM: Male, 70 years old. central line placement TECHNIQUE: AP portable COMPARISON: 07/27/2021 7:32 PM FINDINGS: Central line placement on the right with tip in distal superior vena cava. There is no associated pneumothorax. Findings otherwise have not changed recently since previous exam RAD/CXR for Line Placement IMPRESSION: No evidence of pneumothorax status post central line placement on the right with tip in distal superior vena cava Electronically Signed: David Theodore MD at 22:07 EST ,
--- NOTE | 2021-07-27 22:15 | NURSING ---
PANDEMIC DOCUMENTATION DATE:07/27/21 TIME: 2139
--- NOTE | 2021-07-27 22:18 | PCM.RX.CS ---
Consult Pharmacy has been consulted to manage selected antiobiotic: Vancomycin Type of Consult: New start Suspected Infection: Pneumonia Labs: Sodium 137 mmol/L (136-145) 07/27/21 19:00 Potassium 4.4 mmol/L (3.5-5.1) 07/27/21 19:00 Chloride 100 mmol/L (98-107) 07/27/21 19:00 Carbon Dioxide 36.0 mmol/L (21.0-32.0) H 07/27/21 19:00 Anion Gap 1 (5-15) L 07/27/21 19:00 BUN 32 mg/dL (7-18) H 07/27/21 19:00 Creatinine 0.82 mg/dL (0.70-1.30) 07/27/21 19:00 Est GFR (MDRD) Af Amer 119 mL/min (>60) 07/27/21 19:00 Est GFR (MDRD) Non-Af 99 mL/min (>60) 07/27/21 19:00 BUN/Creatinine Ratio 39.0 RATIO (10-20) H 07/27/21 19:00 Glucose 226 mg/dL (74-106) H 07/27/21 19:00 Weight used for dosin.4 kg Estimated Creatinine Clearance: 66.62 Goal Trough: 15-20 mcg/mL Pharmacy Plan for Drug Dosing: Pharmacy Service will continue to monitor and adjust dosing as required. Medications Vancomycin HCl 750 mg/ Sodium (Chloride) 265 mls @ 250 mls/hr IV Q12H ADI Discontinued Medications Vancomycin HCl 750 mg/ Sodium (Chloride) 265 mls @ 250 mls/hr IV X1 ONE Stop: 07/27/21 21:33 Last Admin: 07/27/21 21:07 Dose: 250 mls/hr Documented by: Follow-Up Labs: Trough Vancomycin Labs to be done on [date and time ordered]: 07/29 @ 3291
[2021-07-27 22:19] LABS: Magnesium 2.4 mg/dL (1.6-2.6)
[2021-07-27] MEDS: Hydrocortisone Sod Succinate 100 MG/2 ML Vial IV (22:48)
[2021-07-27] MEDS: Famotidine 200 MG/20 ML MDV 20 MG in 0.9% Normal Saline (Pres. free 8 ML 300 MG IV (22:48)
[2021-07-27] MEDS: 0.9% Normal Saline 1,000 ML 125 ML IV (22:49)
[2021-07-27] MEDS: 0.9 % NaCl (Sterile) Posiflush 10 mL IV (23:04)
[2021-07-27 23:55] LABS: Reflex Lactate? Y
--- NOTE | 2021-07-28 05:55 | RAD_ITS ---
STUDY: X-RAY CHEST REASON FOR EXAM: Male, 70 years old. Dyspnea and cough. TECHNIQUE: Single AP portable view of the chest. COMPARISON: None. FINDINGS: Tracheostomy tube in place. Right internal jugular central venous catheter with the tip in the superior vena cava. Left-sided midline catheter with the tip in the left axillary vein. There is hyperinflation of the lungs consistent with chronic obstructive lung disease (COPD). Patchy infiltrate in the left perihilar and lower lung zones concerning for superimposed pneumonia. Small left pleural effusion. Normal size heart. Normal mediastinum and genaro. Normal visualized pulmonary arteries. There is atherosclerotic tortuosity of the aortic arch and descending thoracic aorta. No demonstrated acute osseous changes. There is no demonstrated abnormality of the visualized soft tissue structures of the upper abdomen. RAD/Chest 1 View (Portable) IMPRESSION: Left lower lung infiltrates concerning for pneumonia. Small left pleural effusion. Electronically Signed: Lopez Griffith, at 8:17 EST ,
[2021-07-28] MEDS: Hydrocortisone Sod Succinate 100 MG/2 ML Vial IV ×3 (06:00→22:00)
[2021-07-28] MEDS: Enoxaparin 40 MG/0.4 ML Syringe SC (10:00)
[2021-07-28] MEDS: Famotidine 200 MG/20 ML MDV 20 MG in 0.9% Normal Saline (Pres. free 8 ML 300 MG IV ×2 (10:00→22:00)
--- NOTE | 2021-07-28 13:16 | PN_ITS ---
DATE OF SERVICE: 07/28/2021 SUBJECTIVE: Patient seen and examined. He was [facility] with a complaint of hypoxia and confusion. Patient had recently had a prolonged admission for empyema with subsequent trach and PEG placement. He was noted to be hypoxic in the jail and had been left off his oxygen for about 6 hours prior to admission in the jail. He was also noted to be more confused so he was brought into the ED. He is being managed for acute hypoxic respiratory failure due to pneumonia probably aspiration. Patient seen and examined. He was alert, on BiPAP. Patient thought he was in [place]. He was therefore confused. Unable to do comprehensive review of systems on account of patient's confusion. O/E Const alert, confused, and no apparent distress, General Appearance: cooperative HEENT normocephalic, head/scalp atraumatic, hearing grossly normal bilaterally and moist oral mucous membranes Eyes PERRL, EOMs intact bilaterally and conjunctivae normal Neck no lymphadenopathy, supple and no JVD Resp diminished breath sounds bibasally, no wheezes or crackles. On BIPAP Cardio regular rate, regular rhythm, S1 normal heart sound, S2 normal heart sound and no murmurs GI normal to inspection, nondistended, normoactive bowel sounds and soft to palpation GI Narrative: abdomen soft, nontender, no organomegaly Extremity normal to inspection, full ROM and no clubbing, cyanosis or edema Skin no rashes or lesions noted Neuro oriented x3, CN's II-XII intact bilaterally and moves all extremities Sensorium / Orientation: awake and alert Psych affect normal ASSESSMENT/PLAN #Acuteon chronic hypoxic respiratory failure due to pneumonia, likely aspiration pneumonia admitted from his SNF due to worsening shortness of breath. He was also hyptensive in the ED so he had a central line placed in the ED. On IV vancomycin and zosyn. Pulmonology on board. Blood and sputum cultures pending Wean off BiPAP as tolerated and titrate oxygen to maintain saturation above 90%. #Acute metabolic encephalopathy due to acute hypoxic and hypercapnic respiratory failure Patient still remains confused and thinks he is in [place]. Management of respiratory failure as above. #COPD: Usually on 6 L of oxygen in the jail. Breathing reserve medical diabetes. #Paroxysmal A. fib: Beta-blockers held on admission on account of hypotension. Not clear if he is anticoagulated on board. #Severe protein calorie malnutrition: BMI reduced. Nutrition consulted. #GI prophylaxis: On famotidine DVT prophylaxis: Lovenox Billing code: [id number]- inpatient follow up Level 3
[2021-07-28 19:00] VITALS: BP 118/62; PULSE 74; PULSE 82; RESP 24; TEMP 36.8; O2SAT 95
[2021-07-28 19:10] LABS: ALB/GLOB Ratio 0.7 RATIO (0.9-2.4); AST(SGOT) 10 U/L (15-37); Alanine Aminotransfer ALT/SGPT 13 U/L (16-61); Albumin, Serum 2.2 g/dL (3.2-5.0); Alkaline Phosphatase 50 U/L (45-117); Anion Gap 1 (5-15); BUN 26 mg/dL (7-18); Chloride 106 mmol/L (98-107); Creatinine, Serum 0.46 mg/dL (0.70-1.30); EST Glomerular Filtration Rate 195 mL/min (>60); Est Glom Filt Rate - Afr Amer 235 mL/min (>60); Estimated Creatinine Clearance 51.77 ml/min; Globulin 3.2 g/dL (2.2-4.2); Glucose 143 mg/dL (74-106); Potassium 4.4 mmol/L (3.5-5.1); Protein, Total 5.4 g/dL (6.4-8.2); Sodium Level 142 mmol/L (136-145); Troponin-I HS 34 pg/mL (3.0-78.0)
[2021-07-28 19:10] LABS: Troponin-I HS 46 pg/mL (3.0-78.0)
[2021-07-28 19:16] LABS: Lactic Acid 0.9 mmol/L (0.4-1.9)
[2021-07-28 19:24] LABS: Allen Test Positive; Base Excess 7 mmol/L (-2 to +2); Bicarbonate 33.1 mmol/L (22-26); Blood Gas Specimen Type ART; FI02 40; Mode BiLevel; O2 Delivery Device BiPAP; PO2 81 mmHG (75-100); RR 12; SITE R Radial; SO2 94 % (95-99); Total Carbon Dioxide 35 mmol/L; pCO2 66.1 mmHg (35-45); pH 7.31 (7.35-7.45)
[2021-07-28 19:24] LABS: Allen Test Positive; Base Excess 8 mmol/L (-2 to +2); Bicarbonate 33.5 mmol/L (22-26); Blood Gas Specimen Type ART; FI02 30; Mode BiLevel; O2 Delivery Device BiPAP; PEEP 8; PO2 60 mmHG (75-100); RR 12; SITE L Radial; SO2 89 % (95-99); Total Carbon Dioxide 35 mmol/L; Vt 450; pCO2 58.7 mmHg (35-45); pH 7.37 (7.35-7.45)
[2021-07-28 20:00] VITALS: BP 123/50; PULSE 58; RESP 22; TEMP 36.8; O2SAT 94
[2021-07-28 21:00] VITALS: BP 112/55; PULSE 70; RESP 18; TEMP 36.8; O2SAT 97
[2021-07-28 22:00] VITALS: BP 114/53; PULSE 59; RESP 24; TEMP 36.8; O2SAT 98
[2021-07-28] MEDS: CHLORHEXIDINE GLUC 2% CLOTH 1 EACH TOWELETTE TOPICAL (22:10)
[2021-07-28 22:59] LABS: Absolute Lymphocyte Count 0.51 X10^3/uL (0.83-4.51); Absolute Neutrophil Count 5.3 X10^3/uL (2.0-7.7); Hemoglobin 9.6 g/dL (13.0-16.5); Lymphocyte # 0.51 X10^3/ul (0.83-4.51); Lymphocyte % 8.5 % (19-41); Mean Corp Hgb Conc 33.1 g/dL (32-36); Mean Corpuscular Hgb 31.3 pg (27.0-32.0); Mean Corpuscular Volume 94.5 fL (80-94); Mean Platelet Vol. 9.5 fl (6.2-12.0); Monocyte% 3.3 % (0-10); NRBC Flagged by Analyzer 0 % (0-5); Neutrophil # 5.27 X10^3/uL (2.7-7.7); Neutrophil % 87.5 % (47-70); POSITIVE DIFFERENTIAL YES; Platelet Count 146 K/mm3 (150-450); RBC Distribution Width CV 15.8 % (11.6-14.6); RBC Distribution Width SD 54.6 fl (35.1-43.9); Red Blood Count 3.07 M/mm3 (4.6-6.2)
[2021-07-28 23:00] VITALS: BP 111/65; PULSE 74; RESP 24; TEMP 36.8; O2SAT 95
[2021-07-28 23:00] LABS: Differential Indicated SCAN CRITERIA MET
[2021-07-28 23:01] LABS: Differential Comment SCANNED
[2021-07-28 23:18] VITALS: PULSE 81; RESP 12; RESP 22; O2SAT 95
[2021-07-29] VITALS (21 sets, daily range): BP systolic 107–141; BP diastolic 55–76; PULSE 50–72; RESP 12–28; TEMP 36.1–37.1; O2SAT 92–99
--- NOTE | 2021-07-29 06:07 | PN.CC_ITS ---
Assessment & Plan Assessment/Plan (1) Acute on chronic respiratory failure with hypoxia and hypercapnia: PLAN: RECOMMENDATIONS: 1. Continue AVAPS therapy with naps and nightly. 2. Resume supplemental oxygen throughout the day per baseline regimen. 3. Wean stress dose steroids as ordered. 4. Continue antimicrobials, pending culture results. 5. Continue aerosol treatments along with aggressive bronchopulmonary hygiene. 6. Okay for transfer out of the intensive care unit. IMPRESSIONS: 1. Acute combined on chronic hypoxemic respiratory failure The patient has a baseline medical history including COPD and chronic hypoxemic respiratory failure. The patient was apparently left off of his supplemental oxygen [facility], which led to worsening hypoxemia and hypercapnia. The patient, however, responded appropriately to AVAPS therapy. The patient will be continued on empiric antimicrobials, pending culture results. Continue bronchodilators as ordered. The patient was placed on stress dose steroids on admission due to chronic prednisone utilization. Given hemodynamic stability, we will begin to wean stress dose steroids. 2. Encephalopathy Resolved. Most likely hypercapnic in etiology. The patient responded to the use of noninvasive positive pressure ventilatory support. CT head was unremarkable. 3. Recent prolonged hospitalization with empyema leading to tracheostomy and PEG Continue supportive measures as noted above. Speech therapy to evaluate the pa tient. Nutritional support via PEG tube can be entertained in the interim. 4. History of COPD/paroxysmal atrial fibrillation/malnutrition/history of alcohol and tobacco dependency Complicates care, management, recovery and prognosis. Continue supportive measures as noted above. Physical therapy to evaluate the patient. This note was generated with [employer] dictation software. It may contain incorrect words, spelling, and punctuation that were not noted in checking the note before signing. Subjective Subjective The patient was seen and examined at the bedside this morning. Events from the last 24 hours have been reviewed. The patient is currently afebrile, hemodynamically stable and maintaining appropriate oxygen saturations on his baseline 4 to 5 L. The patient was tolerated of Pap therapy overnight. The patient is currently documented to be overall net +1.8 L for the hospitalizatio n. He remains on antimicrobials and stress dose steroids. He is alert and appropriately interactive. Objective Data Objective Data The patient's most recent lab work, culture data and imaging studies have all been personally reviewed. Blood, urine and sputum cultures are pending. Vital Signs: Vital Signs Temp Pulse Resp BP Pulse Ox 97.1 F L 50 L 14 107/59 L 92 07/29/21 05:00 07/29/21 05:53 07/29/21 05:00 07/29/21 05:00 07/29/21 05:00 Oxygen Flow Rate (L/min) 5 Oxygen Delivery Method Bi-pap Weight: 57 kg Body Mass Index (BMI) 18.6 Intake & Output: Intake and Output for Last 24 Hours 07/27/21 07/28/21 07/29/21 23:59 23:59 23:59 Intake Total 2325 / 2325 240 / 240 Output Total 350 / 350 400 / 400 Balance 1974 -160 / -160 Lab / Micro Data Attestation: I reviewed the patient's lab results. Result Diagrams: 07/29/21 06:00 07/29/21 06:00 Labs: Laboratory Results - last 24 hr 07/27/21 22:50: Troponin I High Sens 46 07/28/21 03:15: WBC 6.0, RBC 3.07 L, Hgb 9.6 L, Hct 29.0 L, MCV 94.5 H, MCH 31.3, MCHC 33.1 D, RDW Std Deviation 54.6 H, RDW Coeff of Vita 15.8 H, Plt Count 146 L, MPV 9.5, Immature Gran % (Auto) 0.700, Neut % (Auto) 87.5 H, Lymph % (Auto) 8.5 L, Briscoe % (Auto) 3.3, Eos % (Auto) 0.0, Baso % (Auto) 0.0, Absolute Neuts (auto) 5.3, Absolute Lymphs (auto) 0.51 L, Nucleated RBC % 0, Differential Comment SCANNED 07/28/21 03:15: Sodium 142, Potassium 4.4, Chloride 106, Carbon Dioxide 35.0 H, Anion Gap 1 L, BUN 26 H, Creatinine 0.46 L, Estim Creat Clear Calc 51.77, Est GFR (MDRD) Af Amer 235, Est GFR (MDRD) Non-Af 195, BUN/Creatinine Ratio 57.0 H, Glucose 143 H, Calcium 8.0 L, Total Bilirubin 0.20, AST 10 L, ALT 13 L, Alkaline Phosphatase 50, Total Protein 5.4 L, Albumin 2.2 L, Globulin 3.2, Albumin/Globulin Ratio 0.7 L 07/28/21 03:15: Troponin I High Sens 34 07/28/21 03:15: Lactic Acid 0.9 ABG Data ABG results: ABG 07/28/21 07/28/21 01:49 08:02 Specimen Type ART ART Sample Site R Radial L Radial pH 7.31 L 7.37 Bicarbonate Actual 33.1 H 33.5 H Total CO2 35 35 Base Excess 7 H 8 H O2 Saturation 94 L 89 L O2 % 40 30 ABG pCO2 66.1 H 58.7 H ABG pO2 81 60 L Austin Test Positive Positive Respiration Rate 12 12 O2 Delivery Device BiPAP BiPAP Vent Mode BiLevel BiLevel Tidal Volume 450 POC PEEP 8 Clinical Comments 18*8 450 +8 12 Radiography Diagnostic Testing: Radiology Impression Chest X-Ray 07/28/21 05:55 IMPRESSION: Left lower lung infiltrates concerning for pneumonia. Small left pleural effusion. Electronically Signed: Lopez Griffith, at 8:17 EST , Physical Exam Const alert and no apparent distress General Appearance: cooperative and frail HEENT normocephalic and head/scalp atraumatic Eyes PERRL, EOMs intact bilaterally and conjunctivae normal Neck supple Neck Narrative: Tracheostomy site is C/D/I General: trachea midline Chest inspection of chest normal Resp Auscultation: diminished lung sounds Cardio regular rate and regular rhythm GI normal to inspection, nondistended, normoactive bowel sounds Inspection: GI tube present Extremity no clubbing, cyanosis or edema Skin no rashes or lesions noted Neuro CN's II-XII intact bilaterally and no focal motor deficits Psych cooperative and affect normal Charges/Coding Visit Charges Inpatient E&M: 40818 Subs Hosp L2
[2021-07-29] MEDS: Hydrocortisone Sod Succinate 100 MG/2 ML Vial IV (06:15)
[2021-07-29] MEDS: 0.9% Normal Saline 1,000 ML 125 ML IV (06:17)
[2021-07-29 06:40] LABS: Absolute Lymphocyte Count 0.63 X10^3/uL (0.83-4.51); Hematocrit 31.5 % (40-54); Hemoglobin 10.1 g/dL (13.0-16.5); Lymphocyte # 0.63 X10^3/ul (0.83-4.51); Lymphocyte % 12.8 % (19-41); Mean Corp Hgb Conc 32.1 g/dL (32-36); Mean Corpuscular Hgb 30.4 pg (27.0-32.0); Mean Corpuscular Volume 94.9 fL (80-94); Mean Platelet Vol. 10.1 fl (6.2-12.0); Monocyte# 0.26 X10^3/uL; Monocyte% 5.3 % (0-10); NRBC Flagged by Analyzer 0 % (0-5); Neutrophil # 3.99 X10^3/uL (2.7-7.7); Neutrophil % 81.1 % (47-70); Platelet Count 150 K/mm3 (150-450); RBC Distribution Width CV 15.2 % (11.6-14.6); RBC Distribution Width SD 53.2 fl (35.1-43.9); Red Blood Count 3.32 M/mm3 (4.6-6.2); White Blood Count 4.9 K/mm3 (4.4-11.0)
[2021-07-29 07:17] LABS: Anion Gap 2 (5-15); BUN 19 mg/dL (7-18); Calcium,Total 8.1 mg/dL (8.5-10.1); Chloride 108 mmol/L (98-107); Creatinine, Serum 0.42 mg/dL (0.70-1.30); EST Glomerular Filtration Rate 213 mL/min (>60); Est Glom Filt Rate - Afr Amer 257 mL/min (>60); Estimated Creatinine Clearance 56.21 ml/min; Glucose 124 mg/dL (74-106); Potassium 4.2 mmol/L (3.5-5.1); Sodium Level 142 mmol/L (136-145)
[2021-07-29] MEDS: Ipratropium/Albuterol Sulfate 3 ML AMPUL.NEB INHALATION ×3 (07:20→15:08)
[2021-07-29 07:42] LABS: M R Staph aureus DNA By PCR Negative (Negative); Probe Check PASS; Specimen Processing Control PASS
[2021-07-29 09:14] LABS: Vancomycin, Trough Level 8.5 ug/mL (5.0-15.0)
[2021-07-29] MEDS: Hydrocortisone Sod Succinate 100 MG/2 ML Vial 50 MG IV ×2 (09:32→21:42)
[2021-07-29] MEDS: Enoxaparin 40 MG/0.4 ML Syringe SC (09:32)
[2021-07-29] MEDS: Famotidine 200 MG/20 ML MDV 20 MG in 0.9% Normal Saline (Pres. free 8 ML 300 MG IV ×2 (09:32→21:42)
--- NOTE | 2021-07-29 10:01 | PCM.RX.CS ---
Consult Pharmacy has been consulted to manage selected antiobiotic: Vancomycin Type of Consult: Follow-up Suspected Infection: Pneumonia Prior Doses of Antibiotics Received/Current Regimen: 750MG IV Q12H Labs: Sodium 142 mmol/L (136-145) 07/29/21 06:00 Potassium 4.2 mmol/L (3.5-5.1) 07/29/21 06:00 Chloride 108 mmol/L (98-107) H 07/29/21 06:00 Carbon Dioxide 32.0 mmol/L (21.0-32.0) 07/29/21 06:00 Anion Gap 2 (5-15) L 07/29/21 06:00 BUN 19 mg/dL (7-18) H 07/29/21 06:00 Creatinine 0.42 mg/dL (0.70-1.30) L 07/29/21 06:00 Est GFR (MDRD) Af Amer 257 mL/min (>60) 07/29/21 06:00 Est GFR (MDRD) Non-Af 213 mL/min (>60) 07/29/21 06:00 BUN/Creatinine Ratio 45.0 RATIO (10-20) H 07/29/21 06:00 Glucose 124 mg/dL (74-106) H 07/29/21 06:00 Vancomycin Trough 8.5 ug/mL (5.0-15.0) 07/29/21 08:44 Microbiology: Microbiology 07/27/21 20:30 Interface Orders Urine Culture - Preliminary Culture exhibits no growth. 07/27/21 22:50 Urine Catheter - Navarrete Streptococcus pneumoniae Antigen (M - Final 07/28/21 04:20 Sputum, Expectorated/Coughed Gram Stain - Final Weight used for dosin kg Estimated Creatinine Clearance: 56ML/MIN Goal Trough: 15-20 mcg/mL Pharmacy Plan for Drug Dosing: Trough today was low @8.5 with goal of 15-20mcg/ml. Will increase dose to 1250mg iv q12h. Another trough ordered for before 4th dose of this new dosing schedule. Pharmacy Service will continue to monitor and adjust dosing as required. Follow-Up Labs: Trough Vancomycin - 1.31.22@2130 before 2200 dose
[2021-07-29] MEDS: CHLORHEXIDINE GLUC 2% CLOTH 1 EACH TOWELETTE TOPICAL (10:37)
[2021-07-29] MEDS: Mirtazapine 15 MG Tablet 7.5 MG PO (12:33)
[2021-07-29] MEDS: Furosemide 20 MG Tablet PO (12:33)
--- NOTE | 2021-07-29 15:11 | PN.HOSP_ITS ---
Subjective Subjective Patient seen and examined. Patient feels much better today. He was on 4L of oxygen. He was able to tolerate a diet. He denies any chest pain, nausea vomiting or diarrhea. Review of systems otherwise negative. He has otherwise remained hemodynamically stable. Objective Data Objective Data Vital Signs: Vital Signs Temp Pulse Resp BP Pulse Ox 98.1 F 53 L 20 H 125/58 H 98 07/29/21 11:30 07/29/21 15:08 07/29/21 15:08 07/29/21 11:30 07/29/21 15:08 Oxygen Flow Rate (L/min) 4 Oxygen Delivery Method Nasal Cannula Weight: 125 lb 10.616 oz Body Mass Index (BMI) 18.6 Intake & Output: Intake and Output for Last 24 Hours 07/27/21 07/28/21 07/29/21 23:59 23:59 23:59 Intake Total 2325 / 2325 1790 / 1790 536.88 / 536.88 Output Total 350 / 350 400 / 400 150 / 150 Balance 1974 1390 / 1390 386.88 / 386.88 Medical Nutrition Assessment Dietitian: Malnutrition Criteria Met Start: 07/29/21 08:16 Freq: Status: Active Protocol: Document 07/28/21 08:16 RMA (Rec: 07/29/21 08:17 RMA [id number]) Nutrition Malnutrition Evidence of Malnutrition Exists Yes Malnutrition (moderate): Chronic Evidenced By Suboptimal Energy Intake ( Moderate),Physical Changes ( Moderate) Intake Problem Inadequate Oral Intake Etiology related to dysphagia, pt dislike of pureed food and nectar-thick liquids Signs/Symptoms as evidenced by need for PEG TF support and PO meeting less than 50% estimated nutrition needs Status Active Problem Clinical Problem Chronic Disease or Condition Related Malnutrition Etiology Severe protein-calorie malnutrition in the context of chronic disease related to difficulty swallowing, increased energy expenditure and inadequate oral intake Signs/Symptoms as evidenced by PO meeting less than 50% estimated nutrtion needs, PEG TF support , BMI 19.7, +NFPA with obvious signs of muscle/fat wasting in the face, orbital and temporal regions Status Active Problem Recommendation Dietitian Recommendations/Changes Recommend Regular diet with magic cup/ensure pudding as cleared for PO by SURVEILLANCE TECHNICIAN--- consistency as per speech eval . Ensure enlive as pt accepting. Bolus PEG TF as needed to supplement oral intake. Lab / Micro Data Result Diagrams: 07/29/21 06:00 07/29/21 06:00 Labs: Laboratory Results - last 24 hr 07/27/21 19:00: Troponin I High Sens Cancelled 07/27/21 21:55: COVID-19 (CHERELLE) Not Detected 07/27/21 22:50: Troponin I High Sens 46 07/28/21 03:15: WBC 6.0, RBC 3.07 L, Hgb 9.6 L, Hct 29.0 L, MCV 94.5 H, MCH 31.3, MCHC 33.1 D, RDW Std Deviation 54.6 H, RDW Coeff of Vita 15.8 H, Plt Count 146 L, MPV 9.5, Immature Gran % (Auto) 0.700, Neut % (Auto) 87.5 H, Lymph % (Auto) 8.5 L, Kleberg % (Auto) 3.3, Eos % (Auto) 0.0, Baso % (Auto) 0.0, Absolute Neuts (auto) 5.3, Absolute Lymphs (auto) 0.51 L, Nucleated RBC % 0, Differential Comment SCANNED 07/28/21 03:15: Sodium 142, Potassium 4.4, Chloride 106, Carbon Dioxide 35.0 H, Anion Gap 1 L, BUN 26 H, Creatinine 0.46 L, Estim Creat Clear Calc 51.77, Est GFR (MDRD) Af Amer 235, Est GFR (MDRD) Non-Af 195, BUN/Creatinine Ratio 57.0 H, Glucose 143 H, Calcium 8.0 L, Total Bilirubin 0.20, AST 10 L, ALT 13 L, Alkaline Phosphatase 50, Total Protein 5.4 L, Albumin 2.2 L, Globulin 3.2, Albumin/Globulin Ratio 0.7 L 07/28/21 03:15: Troponin I High Sens 34 07/28/21 03:15: Lactic Acid 0.9 07/28/21 04:20: MRSA (PCR) Negative 07/29/21 06:00: WBC 4.9, RBC 3.32 L, Hgb 10.1 L, Hct 31.5 L, MCV 94.9 H, MCH 30.4, MCHC 32.1, RDW Std Deviation 53.2 H, RDW Coeff of Vita 15.2 H, Plt Count 150, MPV 10.1, Immature Gran % (Auto) 0.800, Neut % (Auto) 81.1 H, Lymph % (Auto) 12.8 L, Kleberg % (Auto) 5.3, Eos % (Auto) 0.0, Baso % (Auto) 0.0, Absolute Neuts (auto) 4.0, Absolute Lymphs (auto) 0.63 L, Nucleated RBC % 0 07/29/21 06:00: Sodium 142, Potassium 4.2, Chloride 108 H, Carbon Dioxide 32.0, Anion Gap 2 L, BUN 19 H, Creatinine 0.42 L, Estim Creat Clear Calc 56.21, Est GFR (MDRD) Af Amer 257, Est GFR (MDRD) Non-Af 213, BUN/Creatinine Ratio 45.0 H, Glucose 124 H, Calcium 8.1 L 07/29/21 08:44: Vancomycin Trough 8.5 Micro: Microbiology 07/28/21 04:20 Sputum, Expectorated/Coughed Gram Stain - Final 07/28/21 04:20 Sputum, Expectorated/Coughed Respiratory Culture - Preliminary Gram positive joann 07/27/21 20:30 Interface Orders Urine Culture - Preliminary Culture exhibits no growth. 07/27/21 22:50 Urine Catheter - Navarrete Streptococcus pneumoniae Antigen (M - Final ABG Data ABG results: ABG 07/28/21 07/28/21 01:49 08:02 Specimen Type ART ART Sample Site R Radial L Radial pH 7.31 L 7.37 Bicarbonate Actual 33.1 H 33.5 H Total CO2 35 35 Base Excess 7 H 8 H O2 Saturation 94 L 89 L O2 % 40 30 ABG pCO2 66.1 H 58.7 H ABG pO2 81 60 L Austin Test Positive Positive Respiration Rate 12 12 O2 Delivery Device BiPAP BiPAP Vent Mode BiLevel BiLevel Tidal Volume 450 POC PEEP 8 Clinical Comments 18*8 450 +8 12 Radiography Diagnostic Testing: Radiology Impression Chest X-Ray 07/28/21 05:55 IMPRESSION: Left lower lung infiltrates concerning for pneumonia. Small left pleural effusion. Electronically Signed: Lopez Nacho, at 8:17 EST , Physical Exam Const alert and oriented x3 Orientation / Consciousness: lethargic Exam Limitations: no limitations HEENT head/scalp atraumatic and moist oral mucous membranes Head and Scalp: normocephalic Eyes PERRL, EOMs intact bilaterally and conjunctivae normal Resp Resp Narrative: Mildly diminished breath sounds bibasilarly. No wheezes or crackles. on 4L of oxygen by nasal canula Cardio regular rate, regular rhythm, S1 normal heart sound and S2 normal heart sound GI normal to inspection, nondistended, normoactive bowel sounds, soft to palpation, non-tender and non-distended Extremity normal to inspection, full ROM and no clubbing, cyanosis or edema Peripheral Pulses: Yes pulses 2+ throughout Skin no rashes or lesions noted Neuro oriented x3, CN's II-XII intact bilaterally and moves all extremities Sensorium / Orientation: awake and alert Psych affect normal Assessment & Plan Assessment/Plan (1) Sepsis: QUALIFIERS: Sepsis type: sepsis due to unspecified organism Sepsis acute organ dysfunction status: unspecified Qualified Code(s): A41.9 - Sepsis, unspecified organism (2) Acute on chronic respiratory failure with hypoxia and hypercapnia: (3) HCAP (healthcare-associated pneumonia): PLAN: #Acute on chronic hypoxic respiratory failure due to pneumonia, likely aspiration pneumonia * now down to 4L of oxygen by nasal canula. Off BIPAP * remains on IV vancomycin and zosyn * didnt require any pressors. * titrate oxygen to maintain sats >90% * breathing treatment with bronchodilators. * #Acute metabolic encephalopathy due to respiratory failure * Resolved. Patient now alert and oriented. * #Pneumonia, likely aspiration pneumonia * On IV vancomycin and Zosyn. Blood cultures pending * Sputum culture growing gram positive joann from 07/28/2021. Speciation pending. * Respiratory culture preliminary growth appears to be normal respiratory dustin from 07/27/2021 * Now off BiPAP and on 4 L of oxygen by nasal cannula. * At baseline he was on 6 L of oxygen. * Titrate oxygen to maintain saturation above 90%. * #COPD: baseline on 6L of oxygen by nasal canula in the SNF. Titrate oxygen to maintain sats >90% #Severe protein calorie malnutrition * nutrition on board. BMI is only 20. * has PEG tube in situ as well * #Paroxysmal afib * beta blockers were held on admission o./a of hypotension. * hypotension has now resolved. * patient doesn't appear to be anticoagulated, unclear why * GI prophylaxis; famotidine DVT prophylaxis: lovenox Charges/Coding Visit Charges Inpatient E&M: 67605 Subs Hosp L2
[2021-07-29 17:54] LABS: M R Staph aureus DNA By PCR Negative (Negative); Probe Check PASS; Specimen Processing Control PASS
[2021-07-29] MEDS: 0.9 % NaCl (Sterile) Posiflush 10 mL IV (21:42)
[2021-07-30] VITALS (15 sets, daily range): BP systolic 120–147; BP diastolic 66–77; PULSE 58–166; RESP 18–28; TEMP 36.4–37.4; O2SAT 78–99
[2021-07-30 05:51] LABS: Absolute Lymphocyte Count 0.55 X10^3/uL (0.83-4.51); Absolute Neutrophil Count 3.1 X10^3/uL (2.0-7.7); Hematocrit 30.9 % (40-54); Hemoglobin 9.8 g/dL (13.0-16.5); Lymphocyte # 0.55 X10^3/ul (0.83-4.51); Lymphocyte % 13.8 % (19-41); Mean Corp Hgb Conc 31.7 g/dL (32-36); Mean Corpuscular Volume 94.5 fL (80-94); Mean Platelet Vol. 9.8 fl (6.2-12.0); Monocyte# 0.34 X10^3/uL; Monocyte% 8.5 % (0-10); NRBC Flagged by Analyzer 0 % (0-5); Neutrophil # 3.08 X10^3/uL (2.7-7.7); Neutrophil % 76.9 % (47-70); POSITIVE DIFFERENTIAL YES; Platelet Count 132 K/mm3 (150-450); RBC Distribution Width CV 14.9 % (11.6-14.6); RBC Distribution Width SD 52.1 fl (35.1-43.9); Red Blood Count 3.27 M/mm3 (4.6-6.2)
[2021-07-30 06:07] LABS: Differential Indicated SCAN CRITERIA MET
[2021-07-30 06:17] LABS: Anion Gap 3 (5-15); BUN 18 mg/dL (7-18); BUN/Creat Ratio 37.3 RATIO (10-20); Calcium,Total 8.4 mg/dL (8.5-10.1); Chloride 107 mmol/L (98-107); Creatinine, Serum 0.48 mg/dL (0.70-1.30); EST Glomerular Filtration Rate 182 mL/min (>60); Est Glom Filt Rate - Afr Amer 221 mL/min (>60); Estimated Creatinine Clearance 56.01 ml/min; Glucose 104 mg/dL (74-106); Potassium 3.3 mmol/L (3.5-5.1); Sodium Level 143 mmol/L (136-145)
--- NOTE | 2021-07-30 08:51 | PN.CC_ITS ---
Assessment & Plan Assessment/Plan (1) Acute on chronic respiratory failure with hypoxia and hypercapnia: PLAN: RECOMMENDATIONS: 1. Recommend AVAPS therapy with naps and nightly. 2. Resume supplemental oxygen throughout the day per baseline regimen. 3. Likely okay to discontinue stress dose steroids 4. Continue antimicrobials, pending culture results. 5. Continue aerosol treatments along with aggressive bronchopulmonary hygiene. 6. Consider PT/OT consult for disposition planning IMPRESSIONS: 1. Acute combined on chronic hypoxemic respiratory failure The patient has a baseline medical history including COPD and chronic hypoxemic respiratory failure. The patient was apparently left off of his supplemental oxygen at his [facility] facility, which led to worsening hypoxemia and hypercapnia. The patient, however, responded appropriately to AVAPS therapy. Patient would benefit from initiation of this at the halfway. The patient will be continued on empiric antimicrobials and appears to be growing gram-positive rods. Continue bronchodilators as ordered. The patient was placed on stress dose steroids on admission due to chronic prednisone utilization. Given hemodynamic stability, okay to discontinue stress dose steroids 2. Encephalopathy Resolved. Most likely hypercapnic in etiology. The patient responded to the use of noninvasive positive pressure ventilatory support. CT head was unremarkable. 3. Recent prolonged hospitalization with empyema leading to tracheostomy and PEG Continue supportive measures as noted above. Speech therapy to evaluate the patient. Nutritional support via PEG tube can be entertained in the interim. 4. History of COPD/paroxysmal atrial fibrillation/malnutrition/history of alcohol and tobacco dependency Complicates care, management, recovery and prognosis. Continue supportive measures as noted above. Physical therapy to evaluate the patient. Patient may require PT/OT evaluation for disposition planning This note was generated with [employer] dictation software. It may contain incorrect words, spelling, and punctuation that were not noted in checking the note before signing. Subjective Subjective Patient did okay overnight. Patient subjectively feels unchanged compared to previous. Patient is having a cough with variable production. Patient back to his baseline nasal cannula oxygen. Objective Data Objective Data Vital Signs: Vital Signs Temp Pulse Resp BP Pulse Ox 36.6 C 58 L 18 120/66 91 07/30/21 03:21 07/30/21 06:59 07/30/21 03:21 07/30/21 03:21 07/30/21 07:19 Oxygen Flow Rate (L/min) 4 Oxygen Delivery Method Nasal Cannula Weight: 56.8 kg Body Mass Index (BMI) 18.6 Intake & Output: Intake and Output for Last 24 Hours 07/28/21 07/29/21 07/30/21 23:59 23:59 23:59 Intake Total 1790 / 1790 1313.98 / 1313.98 94.17 / 94.17 Output Total 400 / 400 1200 / 1200 300 / 300 Balance 1390 / 1390 113.98 / 113.98 -205.83 / -205.83 Medical Nutrition Assessment Dietitian: Malnutrition Criteria Met Start: 07/29/21 08:16 Freq: Status: Active Protocol: Document 07/28/21 08:16 RMA (Rec: 07/29/21 08:17 RMA [id number]) Nutrition Malnutrition Evidence of Malnutrition Exists Yes Malnutrition (moderate): Chronic Evidenced By Suboptimal Energy Intake ( Moderate),Physical Changes ( Moderate) Intake Problem Inadequate Oral Intake Etiology related to dysphagia, pt dislike of pureed food and nectar-thick liquids Signs/Symptoms as evidenced by need for PEG TF support and PO meeting less than 50% estimated nutrition needs Status Active Problem Clinical Problem Chronic Disease or Condition Related Malnutrition Etiology Severe protein-calorie malnutrition in the context of chronic disease related to difficulty swallowing, increased energy expenditure and inadequate oral intake Signs/Symptoms as evidenced by PO meeting less than 50% estimated nutrtion needs, PEG TF support , BMI 19.7, +NFPA with obvious signs of muscle/fat wasting in the face, orbital and temporal regions Status Active Problem Recommendation Dietitian Recommendations/Changes Recommend Regular diet with magic cup/ensure pudding as cleared for PO by HOUSING QUALITY STANDARD INSPECTOR--- consistency as per speech eval . Ensure enlive as pt accepting. Bolus PEG TF as needed to supplement oral intake. Lab / Micro Data Result Diagrams: 07/30/21 05:17 07/30/21 05:17 Labs: Laboratory Results - last 24 hr 07/27/21 19:00: Troponin I High Sens Cancelled 07/29/21 08:44: Vancomycin Trough 8.5 07/29/21 15:00: MRSA (PCR) Negative 07/30/21 05:17: WBC 4.0 L, RBC 3.27 L, Hgb 9.8 L, Hct 30.9 L, MCV 94.5 H, MCH 30.0, MCHC 31.7 L, RDW Std Deviation 52.1 H, RDW Coeff of Vita 14.9 H, Plt Count 132 L, MPV 9.8, Immature Gran % (Auto) 0.800, Neut % (Auto) 76.9 H, Lymph % (Auto) 13.8 L, [place] % (Auto) 8.5, Eos % (Auto) 0.0, Baso % (Auto) 0.0, Absolute Neuts (auto) 3.1, Absolute Lymphs (auto) 0.55 L, Nucleated RBC % 0, Diff Path Review October07/30/21 05:17: Sodium 143, Potassium 3.3 L, Chloride 107, Carbon Dioxide 33.0 H , Anion Gap 3 L, BUN 18, Creatinine 0.48 L, Estim Creat Clear Calc 56.01, Est GFR (MDRD) Af Amer 221, Est GFR (MDRD) Non-Af 182, BUN/Creatinine Ratio 37.3 H, Glucose 104, Calcium 8.4 L Micro: Microbiology 07/28/21 04:20 Sputum, Expectorated/Coughed Gram Stain - Final 07/28/21 04:20 Sputum, Expectorated/Coughed Respiratory Culture - Preliminary Gram positive joann 07/27/21 20:30 Interface Orders Urine Culture - Preliminary Culture exhibits no growth. 07/27/21 22:50 Urine Catheter - Navarrete Streptococcus pneumoniae Antigen (M - Final Physical Exam Const alert and no apparent distress General Appearance: cooperative and frail HEENT normocephalic and head/scalp atraumatic Eyes PERRL, EOMs intact bilaterally and conjunctivae normal Neck supple Neck Narrative: Tracheostomy site is C/D/I and capped General: trachea midline Chest inspection of chest normal Resp Auscultation: diminished lung sounds Cardio regular rate and regular rhythm GI normal to inspection, nondistended, normoactive bowel sounds Inspection: GI tube present Extremity no clubbing, cyanosis or edema Skin no rashes or lesions noted Neuro CN's II-XII intact bilaterally and no focal motor deficits Psych cooperative and affect normal Charges/Coding Visit Charges Inpatient E&M: 53759 Subs Hosp L2
[2021-07-30] MEDS: Mirtazapine 15 MG Tablet 7.5 MG PO (09:09)
[2021-07-30] MEDS: Hydrocortisone Sod Succinate 100 MG/2 ML Vial 25 MG IV ×2 (09:10→21:48)
[2021-07-30] MEDS: Furosemide 20 MG Tablet PO (09:10)
[2021-07-30] MEDS: Magnesium Chloride 64 MG Delay Rel.Tablet 128 MG PO (09:10)
[2021-07-30] MEDS: Famotidine 200 MG/20 ML MDV 20 MG in 0.9% Normal Saline (Pres. free 8 ML 300 MG IV ×2 (09:11→21:48)
[2021-07-30] MEDS: Enoxaparin 40 MG/0.4 ML Syringe SC (09:21)
--- NOTE | 2021-07-30 09:35 | CASEMGMT ---
Addendum entered by Rachel Rubalcava 07/30/21 10:59: SW spoke with patient and he confirmed he does want to go to TCU. SW let patient know that TCU will have a bed for him when he is ready. Patient will need insurance authorization before he can go. Plan: d/c to [facility] Rachel NELSON Original Note: PILI was informed [facility], but [facility]. PILI spoke with Dali in TCU and they should have a bed for patient. SW will talk with patient. Rachel NELSON
[2021-07-30 12:48] LABS: Pathologist Review Reviewed
[2021-07-30] MEDS: Potassium Chloride Oral Tablet 20 MEQ 40 MEQ PO (13:00)
[2021-07-30] MEDS: 0.9 % NaCl (Sterile) Posiflush 10 mL IV (14:53)
--- NOTE | 2021-07-30 15:01 | CASEMGMT ---
PILI noted patient went to [facility] -17. Patient has no secondary insurance. PILI called [facility] and verified patient does not have a secondary insurance. [employer] covers days 1-20 at 100% after that there is a daily co-pay of $184. Patient only has 10-11 days left before his co-pays start. PILI met with patient. PILI explained this to patient. PILI asked patient if he has the money to pay the co-pays or if he will need to apply for Medicaid. Patient said he would have to apply for Medicaid. PILI explianed to patient that he may not want to go to TCU as they do not take Medicaid. PILI told him he would go there for 10-11 days and then go somewhere else. Patient was going to talk with his son Ryan. Patient will have Ryan call PILI. Rachel NELSON
--- NOTE | 2021-07-30 16:01 | PN.HOSP_ITS ---
Subjective Subjective Patient has noticed subjective complaints other than chronic shortness of breath. He did have an episode this morning where he was hypoxic with saturations at 78% on his baseline 4 L which she was tolerating well previously. It is unclear what precipitated this however he has since been weaned back to 4 to 6 L nasal cannula. He does have a swallow eval via cookie swallow to be performed tomorrow. Objective Data Objective Data Vital Signs: Vital Signs Temp Pulse Resp BP Pulse Ox 99.4 F H 68 24 H 129/69 H 99 07/30/21 10:23 07/30/21 15:06 07/30/21 10:23 07/30/21 10:23 07/30/21 10:23 Oxygen Flow Rate (L/min) 6 Oxygen Delivery Method Nasal Cannula Weight: 56.8 kg Body Mass Index (BMI) 18.6 Intake & Output: Intake and Output for Last 24 Hours 07/28/21 07/29/21 07/30/21 23:59 23:59 23:59 Intake Total 1790 / 1790 1313.98 / 1313.98 549.17 / 549.17 Output Total 400 / 400 1200 / 1200 1475 / 1475 Balance 1390 / 1390 113.98 / 113.98 -925.83 / -925.83 Medical Nutrition Assessment Dietitian: Malnutrition Criteria Met Start: 07/29/21 08:16 Freq: Status: Active Protocol: Document 07/28/21 08:16 RMA (Rec: 07/29/21 08:17 RMA [id number]) Nutrition Malnutrition Evidence of Malnutrition Exists Yes Malnutrition (moderate): Chronic Evidenced By Suboptimal Energy Intake ( Moderate),Physical Changes ( Moderate) Intake Problem Inadequate Oral Intake Etiology related to dysphagia, pt dislike of pureed food and nectar-thick liquids Signs/Symptoms as evidenced by need for PEG TF support and PO meeting less than 50% estimated nutrition needs Status Active Problem Clinical Problem Chronic Disease or Condition Related Malnutrition Etiology Severe protein-calorie malnutrition in the context of chronic disease related to difficulty swallowing, increased energy expenditure and inadequate oral intake Signs/Symptoms as evidenced by PO meeting less than 50% estimated nutrtion needs, PEG TF support , BMI 19.7, +NFPA with obvious signs of muscle/fat wasting in the face, orbital and temporal regions Status Active Problem Recommendation Dietitian Recommendations/Changes Recommend Regular diet with magic cup/ensure pudding as cleared for PO by CAT SCAN TECHNOLOGIST--- consistency as per speech eval . Ensure enlive as pt accepting. Bolus PEG TF as needed to supplement oral intake. Lab / Micro Data Result Diagrams: 07/30/21 05:17 07/30/21 05:17 Labs: Laboratory Results - last 24 hr 07/29/21 15:00: MRSA (PCR) Negative 07/30/21 05:17: WBC 4.0 L, RBC 3.27 L, Hgb 9.8 L, Hct 30.9 L, MCV 94.5 H, MCH 30.0, MCHC 31.7 L, RDW Std Deviation 52.1 H, RDW Coeff of Vita 14.9 H, Plt Count 132 L, MPV 9.8, Immature Gran % (Auto) 0.800, Neut % (Auto) 76.9 H, Lymph % (Auto) 13.8 L, [place] % (Auto) 8.5, Eos % (Auto) 0.0, Baso % (Auto) 0.0, Absolute Neuts (auto) 3.1, Absolute Lymphs (auto) 0.55 L, Nucleated RBC % 0, Diff Path Review Reviewed 07/30/21 05:17: Sodium 143, Potassium 3.3 L, Chloride 107, Carbon Dioxide 33.0 H , Anion Gap 3 L, BUN 18, Creatinine 0.48 L, Estim Creat Clear Calc 56.01, Est GFR (MDRD) Af Amer 221, Est GFR (MDRD) Non-Af 182, BUN/Creatinine Ratio 37.3 H, Glucose 104, Calcium 8.4 L Micro: Microbiology 07/28/21 04:20 Sputum, Expectorated/Coughed Gram Stain - Final 07/28/21 04:20 Sputum, Expectorated/Coughed Respiratory Culture - Final Corynebacterium striatum 07/27/21 20:30 Interface Orders Urine Culture - Preliminary Culture exhibits no growth. 07/27/21 22:50 Urine Catheter - Navarrete Streptococcus pneumoniae Antigen (M - Final Physical Exam Const alert and oriented x3 Constitutional Narrative: Thin older white male sitting up in bed, appears much older than stated age, appears mildly tachypneic but nontoxic Exam Limitations: no limitations Nutritional Appearance: thin HEENT head/scalp atraumatic and moist oral mucous membranes HEENT Narrative: Dentition is poor, Mallampati is 1-2, no thrush Head and Scalp: normocephalic Neck Neck Narrative: Trachea midline, 5 distal XLT [address] in place Resp no retractions and no use of accessory muscles Resp Narrative: Mild tachypnea with scattered rhonchi in right base and diffusely diminished Auscultation: rhonchi; Negative for crackles, rales or wheezes Cardio regular rate, regular rhythm, S1 normal heart sound, S2 normal heart sound, no murmurs, no rub, no gallops, no clicks and no JVD GI normal to inspection, nondistended, normoactive bowel sounds, soft to palpation, non-tender and non-distended GI Narrative: PEG tube in place-clean and dry Neuro oriented x3, moves all extremities and no focal motor deficits Sensorium / Orientation: awake and alert Speech: speech normal Psych Psych Narrative: Affect is extremely flat and patient is limitedly interactive Assessment & Plan Assessment/Plan (1) Acute on chronic respiratory failure with hypoxia and hypercapnia: (2) HCAP (healthcare-associated pneumonia): (3) Dysphagia: PLAN: Acute combined on chronic hypoxic respiratory failure -Recent prolonged hospitalization with empyema leading to tracheostomy tube and PEG -Continue AVAPS therapy at night and with naps -Continue antimicrobials -Wean stress dose steroids to 25 mg IV twice daily and likely discontinue tomorrow -Continue aerosols -We will plan to discharge patient on AVAPS -Would recommend pulmonary follow-up upon discharge for evaluation and direction on decannulation if possible -Pulmonary following-appreciate input Aspiration pneumonia -Cultures showing corynebacterium which I suspect is most likely a contaminant -Complete treatment for aspiration coverage for a total of 7 days -Day 3 of 7 -Discontinue vancomycin and Zosyn and switch to Unasyn Dysphagia -Speech therapy is following -Cookie swallow tomorrow Chronic macrocytic anemia -Hemoglobin is relatively stable -Continue to monitor Hypokalemia -Potassium replacement ordered -Repeat BMP in a.m. -If remains low will check magnesium level COPD -Continue aerosols as above Depression/anxiety -Continue BuSpar -Continue Remeron -Continue melatonin to help with insomnia Debility -PT/OT/speech therapy following DVT prophylaxis -Continue Lovenox CODE STATUS -Continue full code Charges/Coding Visit Charges Inpatient E&M: 52394 Subs Hosp L2
--- NOTE | 2021-07-30 17:02 | CASEMGMT ---
Patient's mom came out to the desk and asked what was going on with patient and his discharge. PILI met with her, introduced self and role at [facility]. PILI explained that TCU could take patient, but he would only be able to be in TCU for 10-11 days then he would have to go somewhere else. PILI explained TCU does not take Medicaid. Patient's mom verbalized understanding and said he will just go back to [facility]. PILI will fax information to [facility] so they can obtain insurance authorization. PILI canceled referral with Dali in TCU. Plan: d/c back to [facility] pending insurance approval. Rachel Rubalcava TEXTILES AND CLOTHING TEACHER LESLIE
[2021-07-30] MEDS: Ipratropium/Albuterol Sulfate 3 ML AMPUL.NEB INHALATION (20:00)
[2021-07-31] VITALS (17 sets, daily range): BP systolic 137–158; BP diastolic 63–84; PULSE 57–69; RESP 14–26; TEMP 36.1–37.7; O2SAT 86–100
[2021-07-31 05:04] LABS: Absolute Lymphocyte Count 0.36 X10^3/uL (0.83-4.51); Absolute Neutrophil Count 1.5 X10^3/uL (2.0-7.7); Hematocrit 31.7 % (40-54); Hemoglobin 10.4 g/dL (13.0-16.5); Lymphocyte # 0.36 X10^3/ul (0.83-4.51); Lymphocyte % 17.4 % (19-41); Mean Corp Hgb Conc 32.8 g/dL (32-36); Mean Corpuscular Volume 94.3 fL (80-94); Mean Platelet Vol. 9.7 fl (6.2-12.0); Monocyte% 9.7 % (0-10); NRBC Flagged by Analyzer 0 % (0-5); Neutrophil % 72.4 % (47-70); POSITIVE DIFFERENTIAL YES; Platelet Count 137 K/mm3 (150-450); RBC Distribution Width CV 14.6 % (11.6-14.6); RBC Distribution Width SD 50.9 fl (35.1-43.9); Red Blood Count 3.36 M/mm3 (4.6-6.2); White Blood Count 2.1 K/mm3 (4.4-11.0)
[2021-07-31 05:07] LABS: Differential Indicated SCAN CRITERIA MET
[2021-07-31 05:31] LABS: Anion Gap 4 (5-15); BUN 19 mg/dL (7-18); BUN/Creat Ratio 25.2 RATIO (10-20); Calcium,Total 8.2 mg/dL (8.5-10.1); Chloride 104 mmol/L (98-107); Creatinine, Serum 0.75 mg/dL (0.70-1.30); EST Glomerular Filtration Rate 109 mL/min (>60); Est Glom Filt Rate - Afr Amer 132 mL/min (>60); Estimated Creatinine Clearance 56.01 ml/min; Glucose 92 mg/dL (74-106); Potassium 3.1 mmol/L (3.5-5.1); Sodium Level 144 mmol/L (136-145)
[2021-07-31 05:47] LABS: Differential Comment SCANNED
[2021-07-31] MEDS: Enoxaparin 40 MG/0.4 ML Syringe SC (08:14)
[2021-07-31] MEDS: Mirtazapine 15 MG Tablet 7.5 MG PO (08:14)
[2021-07-31] MEDS: Magnesium Chloride 64 MG Delay Rel.Tablet 128 MG PO (08:15)
[2021-07-31] MEDS: Furosemide 20 MG Tablet PO (08:15)
[2021-07-31] MEDS: Hydrocortisone Sod Succinate 100 MG/2 ML Vial 25 MG IV (08:15)
[2021-07-31] MEDS: Potassium Chloride Oral Tablet 20 MEQ 60 MEQ PO (08:16)
[2021-07-31] MEDS: Famotidine 200 MG/20 ML MDV 20 MG in 0.9% Normal Saline (Pres. free 8 ML 300 MG IV ×2 (08:16→22:06)
[2021-07-31 08:17] LABS: Magnesium 2.1 mg/dL (1.6-2.6)
--- NOTE | 2021-07-31 08:18 | PN.CC_ITS ---
Assessment & Plan Assessment/Plan (1) Acute on chronic respiratory failure with hypoxia and hypercapnia: PLAN: RECOMMENDATIONS: 1. Recommend AVAPS therapy with naps and nightly. 2. Continue supplemental oxygen throughout the day per baseline regimen. 3. Discontinue stress dose steroids. Reinitiate baseline prednisone 4. Continue antimicrobials to complete a 7-day course 5. Continue aerosol treatments along with aggressive bronchopulmonary hygiene. 6. Consider PT/OT consult for disposition planning IMPRESSIONS: 1. Acute combined on chronic hypoxemic respiratory failure The patient has a baseline medical history including COPD and chronic hypoxemic respiratory failure. The patient was apparently left off of his amaya pplemental oxygen [facility], which led to worsening hypoxemia and hypercapnia. The patient, however, responded appropriately to AVAPS therapy. [facility]. Unclear Corynebacterium is a true respiratory infection or skin co ntamination. Agree with transition to Unasyn. Continue bronchodilators as ordered. Likely okay to transition back to baseline prednisone therapy. Given hemodynamic stability, okay to discontinue stress dose steroids 2. Encephalopathy Resolved. Most likely hypercapnic in etiology. The patient responded to the use of noninvasive positive pressure ventilatory support. CT head was unremarkable. The patient is not interacting, but this appears to be voluntary 3. Recent prolonged hospitalization with empyema leading to tracheostomy and PEG Continue supportive measures as noted above. Speech therapy to evaluate the patient. Nutritional support via PEG tube can be entertained in the interim. Patient reportedly to have a swallow study today. 4. History of COPD/paroxysmal atrial fibrillation/malnutrition/history of alc ohol and tobacco dependency Complicates care, management, recovery and prognosis. Continue supportive measures as noted above. Physical therapy to evaluate the patient. Patient may require PT/OT evaluation for disposition planning This note was generated with [employer] dictation software. It may contain incorrect words, spelling, and punctuation that were not noted in checking the note before signing. Subjective Subjective Patient reportedly had a couple episodes of desaturation yesterday. Patient again refused BiPAP overnight. Patient denies any pain, but will not complete a full review of systems for me. Objective Data Objective Data Vital Signs: Vital Signs Temp Pulse Resp BP Pulse Ox 36.1 C L 57 L 14 137/79 H 95 07/31/21 05:12 07/31/21 07:01 07/31/21 05:12 07/31/21 05:12 07/31/21 06:49 Oxygen Flow Rate (L/min) 4 Oxygen Delivery Method Nasal Cannula Weight: 56.1 kg Body Mass Index (BMI) 18.6 Intake & Output: Intake and Output for Last 24 Hours 07/29/21 07/30/21 07/31/21 23:59 23:59 23:59 Intake Total 1313.98 / 1313.98 1062.00 / 1414.00 584 / 584 Output Total 1200 / 1200 2475 / 3175 1150 / 1150 Balance 113.98 / 113.98 -1413.00 / -1761.00 -566 / -566 Medical Nutrition Assessment Dietitian: Malnutrition Criteria Met Start: 07/29/21 08:16 Freq: Status: Active Protocol: Document 07/28/21 08:16 RMA (Rec: 07/29/21 08:17 RMA [id number]) Nutrition Malnutrition Evidence of Malnutrition Exists Yes Malnutrition (moderate): Chronic Evidenced By Suboptimal Energy Intake ( Moderate),Physical Changes ( Moderate) Intake Problem Inadequate Oral Intake Etiology related to dysphagia, pt dislike of pureed food and nectar-thick liquids Signs/Symptoms as evidenced by need for PEG TF support and PO meeting less than 50% estimated nutrition needs Status Active Problem Clinical Problem Chronic Disease or Condition Related Malnutrition Etiology Severe protein-calorie malnutrition in the context of chronic disease related to difficulty swallowing, increased energy expenditure and inadequate oral intake Signs/Symptoms as evidenced by PO meeting less than 50% estimated nutrtion needs, PEG TF support , BMI 19.7, +NFPA with obvious signs of muscle/fat wasting in the face, orbital and temporal regions Status Active Problem Recommendation Dietitian Recommendations/Changes Recommend Regular diet with magic cup/ensure pudding as cleared for PO by SCRAP PREPARATION SUPERVISOR--- consistency as per speech eval . Ensure enlive as pt accepting. Bolus PEG TF as needed to supplement oral intake. Lab / Micro Data Result Diagrams: 07/31/21 04:18 07/31/21 04:18 Labs: Laboratory Results - last 24 hr 07/30/21 05:17: Diff Path Review Reviewed 07/31/21 04:18: WBC 2.1 L, RBC 3.36 L, Hgb 10.4 L, Hct 31.7 L, MCV 94.3 H, MCH 31.0, MCHC 32.8, RDW Std Deviation 50.9 H, RDW Coeff of Vita 14.6, Plt Count 137 L, MPV 9.7, Immature Gran % (Auto) 0.500, Neut % (Auto) 72.4 H, Lymph % (Auto) 17.4 L, [place] % (Auto) 9.7, Eos % (Auto) 0.0, Baso % (Auto) 0.0, Absolute Neuts (auto) 1.5 L, Absolute Lymphs (auto) 0.36 L, Nucleated RBC % 0, Differential Comment SCANNED, Diff Path Review October foll 07/31/21 04:18: Sodium 144, Potassium 3.1 L, Chloride 104, Carbon Dioxide 36.0 H , Anion Gap 4 L, BUN 19 H, Creatinine 0.75, Estim Creat Clear Calc 56.01, Est GFR (MDRD) Af Amer 132, Est GFR (MDRD) Non-Af 109, BUN/Creatinine Ratio 25.2 H, Glucose 92, Calcium 8.2 L 07/31/21 04:18: Magnesium 2.1 Micro: Microbiology 07/27/21 20:30 Interface Orders Urine Culture - Final Culture exhibits no growth. 07/28/21 04:20 Sputum, Expectorated/Coughed Gram Stain - Final 07/28/21 04:20 Sputum, Expectorated/Coughed Respiratory Culture - Final Corynebacterium striatum 07/27/21 22:50 Urine Catheter - Navarrete Streptococcus pneumoniae Antigen (M - Final Physical Exam Const alert and no apparent distress General Appearance: cooperative and frail HEENT normocephalic and head/scalp atraumatic Eyes PERRL, EOMs intact bilaterally and conjunctivae normal Neck supple Neck Narrative: Tracheostomy site is C/D/I and capped General: trachea midline Chest inspection of chest normal Resp Auscultation: diminished lung sounds Cardio regular rate and regular rhythm GI normal to inspection, nondistended, normoactive bowel sounds Inspection: GI tube present Extremity no clubbing, cyanosis or edema Skin no rashes or lesions noted Neuro CN's II-XII intact bilaterally and no focal motor deficits Psych cooperative and affect normal Charges/Coding Visit Charges Inpatient E&M: 95169 Subs Hosp L2
--- NOTE | 2021-07-31 09:42 | ST.MBS ---
Modified Barium Swallow - Patient Information Study Date: 07/31/21 Study Time: 09:00 Direct Billable Minutes: 123 Total Minutes procedure & reportin Diagnosis: Acute on chronic respiratory failure w/ hypoxia and hypercapnia Referring Physician: Laurie Ivory Reason for Referral: Objectively assess swallow function, risk for aspiration, and to determine recommendations for least restrictive diet texture and compensatory strategies to improve safety of swallow. Medical History: The patient is a 70 y/o M w/ PMHx: Severe protein calorie malnutrition, Chronic BL vision loss, PAF, Chronic COPD w/ Chronic Hypoxic Respiratory Failure (4-5L NC) on chronic steroids, A fib, Hx EtOH abuse, Former Tobacco use, Hx recent empyema with prolonged hospitalization with eventual PEG/trach placement currently on puree texture and nectar thickened diet residing at SNF who initially presented to the [facility] ED on 07/26/21 with dyspnea complaint with nursing facility difficulty with suctioning and episodes of hypoxia associated with improvement and appropriate saturation on his home oxygen discharged to SNF. He re-presented to the [facility] ED on 07/27/21 secondary to worsening hypoxia, unfortunately noted to have been left off his oxygen for several hours (6 hours) with severe hypoxia, encephalopathy resulting prompting ED return. Chest x-ray with chronic interstitial and emphysematous changes with minor subsegmental atelectasis right lower lobe with a small effusion on the left and left lower lobe atelectasis versus infiltrate, CT the brain with atrophy and moderate periventricular white matter ischemic changes with no acute intracranial findings otherwise. Pt admitted for management of Acute on chronic hypoxic respiratory failure due to pneumonia, likely aspiration pneumonia. He is additionally being managed for encephalopathy, COPD, and severe protein calorie malnutrition. He was evaluated by speech therapy and placed on minced and moist textures / thin liquids with recommendation for MBS study due to concerns for silent aspiration. Current Diet Ordered: Minced and Moist Textures / Thin Liquids Dentition: Missing Teeth Respiratory Status: Oxygenating on 4L/M nasal cannula - Penetration-Aspiration Scale Penetration-Aspiration Scale: OBJECTIVE ASSESSMENT OF SWALLOW FUNCTION (QUANTITATIVE ? PER TRIAL): PENETRATION / ASPIRATION SCALE (SHAVER): 1 = does not enter airway 2 = enters airway/above vocal folds/ejected 3 = enters airway/above vocal folds/not ejected 4 = enters airway/contacts vocal folds/ejected 5 = enters airway/contacts vocal folds/not ejected 6 = enters airway/below vocal folds/ejected 7 = enters airway/below vocal folds/not ejected despite effort 8 = enters airway/below vocal folds/no effort VIDEOFLOROSCOPIC SCALE SCORE (SHAVER): Grade I = aspiration of material that has penetrated into the laryngeal vestibule, intact cough reflex Grade II = aspiration < 10 % of the bolus, intact cough reflex Grade III = aspiration of < 10 % of the bolus, reduced cough reflex or aspiration of > 10 % of the bolus, intact cough reflex Grade IV = aspiration of > 10 % of the bolus, reduced cough reflex - Penetration-Aspiration Scale Score Thin Liquid via teaspoon Result: 3= enters airways/above vocal folds/not ejected Thin Liquid via teaspoon Trial 2 Result: 3= enters airways/above vocal folds/not ejected Thin Liquid via small single sip from cup Result: 8= enters airway/below vocal folds/no effort Thin Liquid via small single sip from cup Effortful swallow Result: 8= enters airway/below vocal folds/no effort [place] Thick Liquid via teaspoon Result: 1= does not enter airway Comment: Post prandial aspiration of residue of thin liquid trial remaining in laryngeal vestibule. [place] Thick Liquid via teaspoon Trial 2 Result: 1= does not enter airway Comment: Post prandial aspiration of residue of thin liquid trial remaining in laryngeal vestibule. [place] Thick Liquid via small single sip from cup Result: 3= enters airways/above vocal folds/not ejected Honey Thick Liquid via teaspoon Result: 1= does not enter airway Pudding via teaspoon with Esophageal screen Result: 1= does not enter airway Thin Liquid via single sip from straw Result: 8= enters airway/below vocal folds/no effort 1/4 Cookie in Barium pudding Result: 1= does not enter airway [place] Thick Liquid via teaspoon Trial 3 Result: 4= enters airway/contacts vocal folds/ejected Comment: Observed crumb of cookie in pharyngeal residue of previous trial enter the laryngeal vestibule and eject after coughing episode. [place] liquid trial via tsp appeared to have no laryngeal penetration. [place] Thick Liquid via teaspoon Trial 4 Result: 2= enter airway/above vocal folds/ejected - Oral Phase Labial Seal: Escape beyond interlabial space; no extension beyond manfred border Tongue Control During Bolus Hold: Posterior escape of less than half of bolus Bolus Preparation/Mastication: Disorganized chewing/mashing with solid pieces of bolus unchewed Bolus Transport/Lingual Motion: Slowed tongue motion Oral Residue: Residue collection on oral structures - Pharyngeal Phase Initiation of Pharyngeal Swallow: Bolus head in valleculae Soft Palate Elevation: Trace column of contrast/air between soft palate and pharyngeal wall Laryngeal Elevation: Partial superior movement thyroid cart/partial apprx aryt-epig petiole Anterior Hyoid Excursion: Partial anterior movement Epiglottic Movement: Partial inversion Laryngeal Vestibule Closure at Height of Swallow: Incomplete; narrow column of air/contrast in laryngeal vestibule Pharyngeal Stripping Wave: Present - complete Pharyngoesophageal Segment Opening: Parital distension and partial duration; parital obstruction of flow Tongue Base Retraction: Wide column of contrast between tongue base & post. pharyngeal wall Pharyngeal Residue: Collection of residue within or on pharyngeal structures - Esophageal Phase Esophageal Clearance: Esophageal retention - Treatment Strategies Effects of treatment strategies attemped:: Cough and reswallow = Not effective to clear liquids; Coughing episode expelled small cookie crumb from laryngeal vestibule. Mutiple swallows = Effective with clearance of residue of purees. Decreased bolus size = Effective. Straws = Not effective. - Diagnosis/Impression Diagnosis: moderate oropharyngeal phase dysphagia (R13.12) Impression: The oral phase is marked by decreased mastication abilities, as well as slowed A-P transport of bolus. He had a small piece of unchewed cookie bolus that penetrated from pharyngeal residue on subsequent swallows. He required piecemeal deglutition to clear significant oral residue of pudding bite. The pharyngeal phase is marked by decreased airway protection and pharyngeal residue. The patient has decreased laryngeal elevation and anterior hyoid excursion, resulting in decreased airway closure and epiglottic inversion. The patient also presents with pharyngeal residue of honey liquids, pudding, and cookie bolus due to decreased tongue base retraction and UES opening/duration. The patient demonstrated SILENT aspiration of thin liquids via straw and cup during the swallow. He also demonstrated SILENT aspiration of thin liquids via cup after the swallow. He had penetration of cookie bolus to the vocal folds, which he ejected with coughing episode. Trace laryngeal penetration with full ejection of 1 sip of nectar liquids via tsp. The patient had mild esophageal retention of pudding in mid esophagus. - Recommendations Diet: Puree Textures, [place]-thick Liquids Compensatory Strategies: Small Bites - by Teaspoon Only, Liquid by Teaspoon Only, Multiple Swallows - 3 swallows per bite of puree, Alternate bites/solids and sips/liquids, Sitting upright, Remain sitting upright for 30 minutes after PO intake Supervision: 1:1 Close Supervision - Assist feeding as needed to follow through with strategies. Recommend Repeat Modified Barium Swallow: Yes Need for Skilled Speech Therapy Services: Yes Education Completed: 1. Described result of evaluation., 7. Pt requires further education on strategies & risks. - Status Active ST Patient: Active - Contact Information [facility] Speech Therapy:: Jelena Hernandez M.A. [facility] OFFICER ARMAMENT Speech-Language Pathologist [facility] [address] [place] [address] [email or web address] [phone] 07/31/21 10:06
--- NOTE | 2021-07-31 11:42 | NURSING ---
Titrated oxygen from 6L to 4L, O2 saturation improving.
--- NOTE | 2021-07-31 12:35 | NURSING ---
removed RIJ. Pt tolerated well. pressure held for 5 mintues and patient instructed to lay supine for 30 minutes
--- NOTE | 2021-07-31 13:27 | PCM.PN.HOSP ---
Subjective Subjective Patient is intermittently taking off his oxygen as he states is uncomfortable on his ears. I discussed this with nursing and they are working on getting some padding to make it more comfortable with him. He had 2 desaturations yesterday where he Was required to be placedHeated high flow nasal cannula to improve but has been weaned back down to 4 L ,which is his baseline, today.The patient is not much interested in talking about his care. Objective Data Objective Data Vital Signs: Vital Signs Temp Pulse Resp BP Pulse Ox 98.2 F 68 22 H 140/75 H 95 07/31/21 11:30 07/31/21 11:30 07/31/21 11:30 07/31/21 11:30 07/31/21 11:41 Oxygen Flow Rate (L/min) 4 Oxygen Delivery Method High Flow Weight: 56.1 kg Body Mass Index (BMI) 18.6 Intake & Output: Intake and Output for Last 24 Hours 07/29/21 07/30/21 07/31/21 23:59 23:59 23:59 Intake Total 1313.98 / 1313.98 1062.00 / 1414.00 734 / 734 Output Total 1200 / 1200 2475 / 3175 1600 / 1600 Balance 113.98 / 113.98 -1413.00 / -1761.00 -866 / -866 Medical Nutrition Assessment Dietitian: Malnutrition Criteria Met Start: 07/29/21 08:16 Freq: Status: Active Protocol: Document 07/28/21 08:16 RMA (Rec: 07/29/21 08:17 RMA [id number]) Nutrition Malnutrition Evidence of Malnutrition Exists Yes Malnutrition (moderate): Chronic Evidenced By Suboptimal Energy Intake ( Moderate),Physical Changes ( Moderate) Intake Problem Inadequate Oral Intake Etiology related to dysphagia, pt dislike of pureed food and nectar-thick liquids Signs/Symptoms as evidenced by need for PEG TF support and PO meeting less than 50% estimated nutrition needs Status Active Problem Clinical Problem Chronic Disease or Condition Related Malnutrition Etiology Severe protein-calorie malnutrition in the context of chronic disease related to difficulty swallowing, increased energy expenditure and inadequate oral intake Signs/Symptoms as evidenced by PO meeting less than 50% estimated nutrtion needs, PEG TF support , BMI 19.7, +NFPA with obvious signs of muscle/fat wasting in the face, orbital and temporal regions Status Active Problem Recommendation Dietitian Recommendations/Changes Recommend Regular diet with magic cup/ensure pudding as cleared for PO by MOTOR VEHICLE LICENSE CLERK--- consistency as per speech eval . Ensure enlive as pt accepting. Bolus PEG TF as needed to supplement oral intake. Lab / Micro Data Result Diagrams: 07/31/21 04:18 07/31/21 04:18 Labs: Laboratory Results - last 24 hr 07/31/21 04:18: WBC 2.1 L, RBC 3.36 L, Hgb 10.4 L, Hct 31.7 L, MCV 94.3 H, MCH 31.0, MCHC 32.8, RDW Std Deviation 50.9 H, RDW Coeff of Vita 14.6, Plt Count 137 L, MPV 9.7, Immature Gran % (Auto) 0.500, Neut % (Auto) 72.4 H, Lymph % (Auto) 17.4 L, [place] % (Auto) 9.7, Eos % (Auto) 0.0, Baso % (Auto) 0.0, Absolute Neuts (auto) 1.5 L, Absolute Lymphs (auto) 0.36 L, Nucleated RBC % 0, Differential Comment SCANNED, Diff Path Review October foll 07/31/21 04:18: Sodium 144, Potassium 3.1 L, Chloride 104, Carbon Dioxide 36.0 H, Anion Gap 4 L, BUN 19 H, Creatinine 0.75, Estim Creat Clear Calc 56.01, Est GFR (MDRD) Af Amer 132, Est GFR (MDRD) Non-Af 109, BUN/Creatinine Ratio 25.2 H, Glucose 92, Calcium 8.2 L 07/31/21 04:18: Magnesium 2.1 Micro: Microbiology 07/27/21 20:30 Interface Orders Urine Culture - Final Culture exhibits no growth. 07/28/21 04:20 Sputum, Expectorated/Coughed Gram Stain - Final 07/28/21 04:20 Sputum, Expectorated/Coughed Respiratory Culture - Final Corynebacterium striatum 07/27/21 22:50 Urine Catheter - Navarrete Streptococcus pneumoniae Antigen (M - Final Physical Exam Const alert and oriented x3 Constitutional Narrative: Thin older white male sitting up in bed, appears much older than stated age, appears mildly tachypneic but nontoxic Orientation / Consciousness: lethargic Exam Limitations: no limitations Nutritional Appearance: thin HEENT head/scalp atraumatic and moist oral mucous membranes HEENT Narrative: Shiley distal XLT [address], Trach is currently capped and patient is able to vocalize well however has a weak cough Head and Scalp: normocephalic Neck Neck Narrative: Trachea midline, 5 distal XLT [address] in place Resp no retractions and no use of accessory muscles Resp Narrative: Mild tachypnea with scattered rhonchi in right base and diffusely diminished-Rhonchi do improve with cough Auscultation: rhonchi; Negative for crackles, rales or wheezes Cardio regular rate, regular rhythm, S1 normal heart sound, S2 normal heart sound, no murmurs, no rub, no gallops, no clicks and no JVD GI normal to inspection, nondistended, normoactive bowel sounds, soft to palpation, non-tender and non-distended GI Narrative: PEG tube in place-clean and dry Extremity no clubbing, cyanosis or edema Extremity Narrative: Decreased lean muscle mass Peripheral Pulses: Yes pulses 2+ throughout Skin Skin Narrative: Right IJ in place-dressing is clean and dry Neuro oriented x3, CN's II-XII intact bilaterally, moves all extremities and no focal motor deficits Sensorium / Orientation: awake and alert Speech: speech normal Psych affect normal Psych Narrative: Affect is extremely flat and patient is limitedly interactive Assessment & Plan Assessment/Plan (1) Acute on chronic respiratory failure with hypoxia and hypercapnia: (2) HCAP (healthcare-associated pneumonia): (3) Dysphagia: PLAN: Acute combined on chronic hypoxic respiratory failure -Recent prolonged hospitalization with empyema leading to tracheostomy tube and PEG -Continue AVAPS therapy at night and with naps -Patient with 2 bouts of hypoxia yesterday where his oxygen had to be increased to the high flow nasal cannula -Etiology unclear however we are suspicious that maybe he is taking his oxygen off and then replacing it -Monitor today and if oxygenation remains stable in the next 24 hours should be okay for discharge tomorrow -Continue antimicrobials -Discontinue stress dose steroids -Patient is on prednisone 10 mg at baseline and this was reinitiated -Continue aerosols -We will plan to discharge patient on AVAPS -However patient has been noncompliant with this periodically while hospitalized -Would recommend pulmonary follow-up upon discharge for evaluation and direction on decannulation if possible -Pulmonary following-appreciate input Aspiration pneumonia -Cultures showing corynebacterium which I suspect is most likely a contaminant -Complete treatment for aspiration coverage for a total of 7 days -Day 4 of 7 -Discontinue vancomycin and Zosyn and switch to Unasyn Dysphagia -Speech therapy is following -MBS performed and patient was cleared for a pur?ed nectar thick liquid diet -Order was placed Chronic macrocytic anemia -Hemoglobin is relatively stable -Continue to monitor Hypokalemia -Potassium replacement ordered again today -Repeat BMP in a.m. -Magnesium level was within normal limits COPD -Continue aerosols as above Depression/anxiety -Continue BuSpar -Continue Remeron -Continue melatonin to help with insomnia Debility -PT/OT/speech therapy following DVT prophylaxis -Continue Lovenox CODE STATUS -Continue full code Disposition -Probable discharge back to skilled facility in the next 24 hours as long as his oxygenation status remained stable Charges/Coding Visit Charges Inpatient E&M: 09843 Subs Hosp L2
--- NOTE | 2021-07-31 13:46 | NURSING ---
Pt. is refusing to eat, but will drink nectar thick water. This RN suggested tube feedings through PEG tube, pt. refused. Notified Dr. Ivory that pt. is refusing to eat, refusing Bi-Pap and aerosol treatments. MD aware, will continue to follow.
--- NOTE | 2021-07-31 14:05 | CASEMGMT ---
PILI called Jonatan at [facility] and she did not receive patient's information yesterday. PILI re-faxed patient's clinicals so pre-cert can be initiated. Rachel NELSON
[2021-07-31] MEDS: 0.9 % NaCl (Sterile) Posiflush 10 mL IV (22:08)
[2021-08-01] VITALS (19 sets, daily range): BP systolic 120–157; BP diastolic 64–87; PULSE 59–70; RESP 16–20; TEMP 36.4–37.6; O2SAT 69–98
[2021-08-01 05:28] LABS: Absolute Lymphocyte Count 0.45 X10^3/uL (0.83-4.51); Absolute Neutrophil Count 1.6 X10^3/uL (2.0-7.7); Hematocrit 32.3 % (40-54); Hemoglobin 10.8 g/dL (13.0-16.5); Lymphocyte # 0.45 X10^3/ul (0.83-4.51); Lymphocyte % 19.9 % (19-41); Mean Corp Hgb Conc 33.4 g/dL (32-36); Mean Corpuscular Hgb 30.9 pg (27.0-32.0); Mean Corpuscular Volume 92.6 fL (80-94); Mean Platelet Vol. 9.4 fl (6.2-12.0); Monocyte# 0.16 X10^3/uL; Monocyte% 7.1 % (0-10); NRBC Flagged by Analyzer 0 % (0-5); Neutrophil # 1.63 X10^3/uL (2.7-7.7); Neutrophil % 72.1 % (47-70); POSITIVE DIFFERENTIAL YES; Platelet Count 123 K/mm3 (150-450); RBC Distribution Width CV 14.3 % (11.6-14.6); Red Blood Count 3.49 M/mm3 (4.6-6.2); White Blood Count 2.3 K/mm3 (4.4-11.0)
[2021-08-01 05:31] LABS: Differential Indicated SCAN CRITERIA MET
[2021-08-01 05:47] LABS: Anion Gap 5 (5-15); BUN 22 mg/dL (7-18); BUN/Creat Ratio 29.6 RATIO (10-20); Calcium,Total 8.1 mg/dL (8.5-10.1); Chloride 102 mmol/L (98-107); Creatinine, Serum 0.74 mg/dL (0.70-1.30); EST Glomerular Filtration Rate 111 mL/min (>60); Est Glom Filt Rate - Afr Amer 134 mL/min (>60); Estimated Creatinine Clearance 55.32 ml/min; Glucose 70 mg/dL (74-106); Potassium 3.1 mmol/L (3.5-5.1); Sodium Level 142 mmol/L (136-145)
[2021-08-01 05:57] LABS: Differential Comment SCANNED
--- NOTE | 2021-08-01 08:06 | PCM.PN.INT ---
Assessment & Plan Assessment/Plan (1) Acute on chronic respiratory failure with hypoxia and hypercapnia: PLAN: RECOMMENDATIONS: 1. Recommend AVAPS therapy via mask or trach with naps and nightly. 2. Continue supplemental oxygen throughout the day per baseline regimen. 3. Continue baseline prednisone 4. Continue antimicrobials to complete a 7-day course 5. Continue aerosol treatments along with aggressive bronchopulmonary hygiene. 6. Okay to discharge from pulmonary perspective IMPRESSIONS: 1. Acute combined on chronic hypoxemic respiratory failure The patient has a baseline medical history including COPD and chronic hypoxemic respiratory failure. The patient was apparently left off of his supplemental oxygen at his long-term facility, which led to worsening hypoxemia and hypercapnia. The patient, however, responded appropriately to AVAPS therapy. Patient would benefit from [facility] of this at the [facility]. Unclear Corynebacterium is a true respiratory infection or skin contamination. Agree with transition to Unasyn. Continue bronchodilators as ordered. Likely okay to transition back to baseline prednisone therapy. Okay to be discharged from a pulmonary perspective. Follow-up with primary women's studies lecturer 2. Encephalopathy Resolved. Most likely hypercapnic in etiology. The patient responded to the use of noninvasive positive pressure ventilatory support. CT head was unremarkable. The patient is not interacting, but this appears to be voluntary 3. Recent prolonged hospitalization with empyema leading to tracheostomy and PEG Continue supportive measures as noted above. Speech therapy recommended modified diet. Nutritional support via PEG tube can be entertained in the interim. Potassium repletion ordered for a PEG for hypokalemia 4. History of COPD/paroxysmal atrial fibrillation/malnutrition/history of alcohol and tobacco dependency Complicates care, management, recovery and prognosis. Continue supportive measures as noted above. Physical therapy to evaluate the patient. Okay to discharge from my perspective with follow-up with primary women's studies lecturer. This note was generated with [employer] dictation software. It may contain incorrect words, spelling, and punctuation that were not noted in checking the note before signing. Subjective Subjective Patient did okay overnight. Patient subjectively feels unchanged compared to previous. Patient is not reporting any chest pain or abdominal pain. Patient has not had any choking episodes. Patient is on a modified diet with supervision. Objective Data Objective Data Vital Signs: Vital Signs Temp Pulse Resp BP Pulse Ox 37.4 C H 67 20 H 132/87 H 92 08/01/21 05:28 08/01/21 07:05 08/01/21 05:28 08/01/21 05:28 08/01/21 07:05 Oxygen Flow Rate (L/min) 8 Oxygen Delivery Method High Flow Weight: 56.9 kg Body Mass Index (BMI) 18.6 Intake & Output: Intake and Output for Last 24 Hours 07/30/21 07/31/21 08/01/21 23:59 23:59 23:59 Intake Total 1062.00 / 1414.00 1218 / 1418 544 / 544 Output Total 2475 / 3175 1600 / 2000 800 / 800 Balance -1413.00 / -1761.00 -382 / -582 -256 / -256 Medical Nutrition Assessment Dietitian: Malnutrition Criteria Met Start: 07/29/21 08:16 Freq: Status: Active Protocol: Document 07/28/21 08:16 RMA (Rec: 07/29/21 08:17 RMA [id number]) Nutrition Malnutrition Evidence of Malnutrition Exists Yes Malnutrition (moderate): Chronic Evidenced By Suboptimal Energy Intake ( Moderate),Physical Changes ( Moderate) Intake Problem Inadequate Oral Intake Etiology related to dysphagia, pt dislike of pureed food and nectar-thick liquids Signs/Symptoms as evidenced by need for PEG TF support and PO meeting less than 50% estimated nutrition needs Status Active Problem Clinical Problem Chronic Disease or Condition Related Malnutrition Etiology Severe protein-calorie malnutrition in the context of chronic disease related to difficulty swallowing, increased energy expenditure and inadequate oral intake Signs/Symptoms as evidenced by PO meeting less than 50% estimated nutrtion needs, PEG TF support , BMI 19.7, +NFPA with obvious signs of muscle/fat wasting in the face, orbital and temporal regions Status Active Problem Recommendation Dietitian Recommendations/Changes Recommend Regular diet with magic cup/ensure pudding as cleared for PO by MEDICAL EQUIPMENT TECHNICIAN--- consistency as per speech eval . Ensure enlive as pt accepting. Bolus PEG TF as needed to supplement oral intake. Lab / Micro Data Result Diagrams: 08/01/21 05:03 08/01/21 05:03 Labs: Laboratory Results - last 24 hr 07/31/21 04:18: Magnesium 2.1 08/01/21 05:03: WBC 2.3 L, RBC 3.49 L, Hgb 10.8 L, Hct 32.3 L, MCV 92.6, MCH 30.9, MCHC 33.4, RDW Std Deviation 48.0 H, RDW Coeff of Vita 14.3, Plt Count 123 L, MPV 9.4, Immature Gran % (Auto) 0.900, Neut % (Auto) 72.1 H, Lymph % (Auto) 19.9, Robertson % (Auto) 7.1, Eos % (Auto) 0.0, Baso % (Auto) 0.0, Absolute Neuts (auto) 1.6 L, Absolute Lymphs (auto) 0.45 L, Nucleated RBC % 0, Differential Comment SCANNED, Diff Path Review October foll 08/01/21 05:03: Sodium 142, Potassium 3.1 L, Chloride 102, Carbon Dioxide 35.0 H, Anion Gap 5, BUN 22 H, Creatinine 0.74, Estim Creat Clear Calc 55.32, Est GFR (MDRD) Af Amer 134, Est GFR (MDRD) Non-Af 111, BUN/Creatinine Ratio 29.6 H, Glucose 70 L, Calcium 8.1 L Micro: Microbiology 07/27/21 20:30 Interface Orders Urine Culture - Final Culture exhibits no growth. 07/28/21 04:20 Sputum, Expectorated/Coughed Gram Stain - Final 07/28/21 04:20 Sputum, Expectorated/Coughed Respiratory Culture - Final Corynebacterium striatum 07/27/21 22:50 Urine Catheter - Navarrete Streptococcus pneumoniae Antigen (M - Final Physical Exam Const alert and no apparent distress General Appearance: cooperative and frail HEENT normocephalic and head/scalp atraumatic Eyes PERRL, EOMs intact bilaterally and conjunctivae normal Neck supple Neck Narrative: Tracheostomy site is C/D/I and capped. Good vocalization. General: trachea midline Chest inspection of chest normal Resp Auscultation: diminished lung sounds Cardio regular rate and regular rhythm GI normal to inspection, nondistended, normoactive bowel sounds Inspection: GI tube present Extremity no clubbing, cyanosis or edema Skin no rashes or lesions noted Neuro CN's II-XII intact bilaterally and no focal motor deficits Psych cooperative and affect normal Charges/Coding Visit Charges Inpatient E&M: 55830 Subs Hosp L2
[2021-08-01] MEDS: Potassium Chloride Oral Soln 20 MEQ/15 ML UDC 40 MEQ PO ×2 (08:17→23:00)
[2021-08-01] MEDS: Mirtazapine 15 MG Tablet 7.5 MG PO (08:18)
[2021-08-01] MEDS: predniSONE 10 MG Tablet PO (08:18)
[2021-08-01] MEDS: Enoxaparin 40 MG/0.4 ML Syringe SC (08:18)
[2021-08-01] MEDS: Magnesium Chloride 64 MG Delay Rel.Tablet 128 MG PO (08:18)
[2021-08-01] MEDS: Furosemide 20 MG Tablet PO (08:18)
[2021-08-01] MEDS: Potassium Chloride 10mEq/100mL 10 MEQ/100 ML IV.SOLN. 100 MEQ IV BOLUS ×2 (08:35→10:21)
[2021-08-01 09:33] LABS: Pathologist Review Reviewed
[2021-08-01 10:30] LABS: Pathologist Review Reviewed
--- NOTE | 2021-08-01 10:32 | CASEMGMT ---
[facility] to go back to [facility]. However, his O2 requirements have not been steady. Patient not yet ready for d/c. PILI called Jonatan and let her know. Plan: d/c back to [facility] when ready. Rachel NELSON
[2021-08-01] MEDS: Famotidine 200 MG/20 ML MDV 20 MG in 0.9% Normal Saline (Pres. free 8 ML 300 MG IV ×2 (11:39→23:00)
[2021-08-01] MEDS: Jevity 1.5. 1,000 ML Bottle 250 ML GT ×2 (14:19→17:24)
--- NOTE | 2021-08-01 17:08 | PN.HOSP_ITS ---
Subjective Subjective Apathetic and depressed. He is in his off in his own care, he has difficulty describing why he has a PEG tube and why he was trach. He states that he did not have really much of a decision. He has been refusing all types of interventions but also does not want to have a discussion on advance care planning options and hospice. Objective Data Objective Data Vital Signs: Vital Signs Temp Pulse Resp BP Pulse Ox 98.9 F 67 20 H 132/65 H 96 08/01/21 16:42 08/01/21 16:42 08/01/21 16:42 08/01/21 16:42 08/01/21 16:44 Oxygen Flow Rate (L/min) 6 Oxygen Delivery Method High Flow Weight: 125 lb 7.088 oz Body Mass Index (BMI) 18.6 Intake & Output: Intake and Output for Last 24 Hours 07/31/21 08/01/21 08/02/21 03:59 03:59 03:59 Intake Total 1371.08 / 1371.08 1178 / 1178 1374 / 1374 Output Total 3175 / 3175 1300 / 1300 800 / 800 Balance -1803.92 / -1803.92 -122 / -122 574 / 574 Medical Nutrition Assessment Dietitian: Malnutrition Criteria Met Start: 07/29/21 08:16 Freq: Status: Active Protocol: Document 08/01/21 11:01 (Rec: 08/01/21 11:01 [id number]) Nutrition Malnutrition Evidence of Malnutrition Exists Yes Malnutrition (moderate): Chronic Evidenced By Suboptimal Energy Intake ( Moderate),Physical Changes ( Moderate) Intake Problem Inadequate Oral Intake Etiology related to dysphagia, pt dislike of pureed food and nectar-thick liquids Signs/Symptoms as evidenced by need for PEG TF support and PO meeting less than 50% estimated nutrition needs Status Active Problem Clinical Problem Chronic Disease or Condition Related Malnutrition Etiology Severe protein-calorie malnutrition in the context of chronic disease related to difficulty swallowing, increased energy expenditure and inadequate oral intake Signs/Symptoms as evidenced by PO meeting less than 50% estimated nutrition needs, PEG TF support, BMI 19.7, +NFPA with obvious signs of muscle/fat wasting in the face, orbital and temporal regions Status Active Problem Recommendation Dietitian Recommendations/Changes 1) Continue Regular diet- texture/consistency modifications per MEDIA SENIOR RECRUITER. Will add magic cup/ensure pudding w / meals for additional calories/protein if consumed. 2) Will order Jevity 1.5 250mL bolus TID via PEG if PO intake at meals is <50%. 200mL H2O flush w/ each bolus. As recommended, enteral nutrition would provide 1125 calories, 67 g protein, and 1398mL total fluid/day, meeting ~66% of pt 's estimated calorie and 90% of estimated protein needs. 3) Adjust enteral nutrition if wt loss occurs and/or PO intake is insignificant. 4) Continue daily wts. Lab / Micro Data Result Diagrams: 08/01/21 05:03 08/01/21 05:03 Labs: Laboratory Results - last 24 hr 07/31/21 04:18: Diff Path Review Reviewed 08/01/21 05:03: WBC 2.3 L, RBC 3.49 L, Hgb 10.8 L, Hct 32.3 L, MCV 92.6, MCH 30.9, MCHC 33.4, RDW Std Deviation 48.0 H, RDW Coeff of Vita 14.3, Plt Count 123 L, MPV 9.4, Immature Gran % (Auto) 0.900, Neut % (Auto) 72.1 H, Lymph % (Auto) 19.9, [place] % (Auto) 7.1, Eos % (Auto) 0.0, Baso % (Auto) 0.0, Absolute Neuts (auto) 1.6 L, Absolute Lymphs (auto) 0.45 L, Nucleated RBC % 0, Differential Comment SCANNED, Diff Path Review Reviewed 08/01/21 05:03: Sodium 142, Potassium 3.1 L, Chloride 102, Carbon Dioxide 35.0 H , Anion Gap 5, BUN 22 H, Creatinine 0.74, Estim Creat Clear Calc 55.32, Est GFR (MDRD) Af Amer 134, Est GFR (MDRD) Non-Af 111, BUN/Creatinine Ratio 29.6 H, Glucose 70 L, Calcium 8.1 L Micro: Microbiology 07/27/21 20:30 Interface Orders Urine Culture - Final Culture exhibits no growth. 07/28/21 04:20 Sputum, Expectorated/Coughed Gram Stain - Final 07/28/21 04:20 Sputum, Expectorated/Coughed Respiratory Culture - Final Corynebacterium striatum 07/27/21 22:50 Urine Catheter - Navarrete Streptococcus pneumoniae Antigen (M - Final Physical Exam Const alert, oriented x3 and no apparent distress General Appearance: cooperative Nutritional Appearance: cachectic HEENT normocephalic Mouth: dry mucous membranes Eyes PERRL, EOMs intact bilaterally and conjunctivae normal Neck supple and no JVD Neck Narrative: Trach in place, capped Resp normal respiratory effort, no retractions and no use of accessory muscles Auscultation: diminished lung sounds; Negative for crackles, rales, rhonchi or wheezes Cardio regular rate, regular rhythm, S1 normal heart sound, S2 normal heart sound and no murmurs GI soft to palpation, non-tender and non-distended; Negative for hepatosplenomegaly GI Narrative: PEG tube in place Extremity no clubbing, cyanosis or edema Skin no rashes or lesions noted Neuro no focal motor deficits and no sensory deficits noted Psych Mood & Affect: depressed and apathetic Assessment & Plan Assessment/Plan (1) Acute on chronic respiratory failure with hypoxia and hypercapnia: (2) HCAP (healthcare-associated pneumonia): (3) Dysphagia: PLAN: 1. Acute combined on chronic hypoxic respiratory failure due to aspiration pneumonia secondary to dysphagia -Recent prolonged hospitalization with empyema leading to tracheostomy tube and PEG -Continue AVAPS therapy at night and with naps -He has variable oxygen requirements, the concern is lack of compliance with his oxygen he is likely stable for discharge however he does have variable oxygen requirement today with ambulation he was at 87% and it is likely that the SNF would send him back -Continue antimicrobials -Continue with his baseline steroids -Continue aerosols -We will plan to discharge patient on AVAPS -Would recommend pulmonary follow-up upon discharge for evaluation and direction on decannulation if possible -Pulmonary following-appreciate input ?Speech therapy is recommending a modified diet with pur?ed nectar thick liquid 2. COPD not in exacerbation ?Stable ?Continue with inhalers and chronic steroids 3. Depression/anxiety ?He continues to appear apathetic and depressed ?We will continue with his BuSpar and Remeron but will also add Zoloft DVT: Lovenox Charges/Coding Visit Charges Inpatient E&M: 86514 Subs Hosp L2
[2021-08-01] MEDS: Sertraline 50 MG Tablet PO (17:24)
[2021-08-01] MEDS: 0.9 % NaCl (Sterile) Posiflush 10 mL IV (23:11)
[2021-08-02] VITALS (31 sets, daily range): BP systolic 123–142; BP diastolic 57–77; PULSE 61–79; RESP 16–20; TEMP 36.5–36.9; O2SAT 82–98
--- NOTE | 2021-08-02 02:17 | NURSING ---
po 97% on 6lnc. Pt decreased to 5lnc
--- NOTE | 2021-08-02 03:25 | NURSING ---
pt sleeping at this time. Pt not on avap because pt refused
--- NOTE | 2021-08-02 04:51 | NURSING ---
02 decreased to 4lnc
[2021-08-02 06:07] LABS: Absolute Lymphocyte Count 0.51 X10^3/uL (0.83-4.51); Absolute Neutrophil Count 2.4 X10^3/uL (2.0-7.7); Eosinophil# 0.04 X10^3/uL; Eosinophils% 1.3 % (0-5); Hematocrit 29.9 % (40-54); Hemoglobin 9.8 g/dL (13.0-16.5); Lymphocyte # 0.51 X10^3/ul (0.83-4.51); Mean Corp Hgb Conc 32.8 g/dL (32-36); Mean Corpuscular Hgb 30.3 pg (27.0-32.0); Mean Corpuscular Volume 92.6 fL (80-94); Mean Platelet Vol. 9.6 fl (6.2-12.0); Monocyte# 0.22 X10^3/uL; Monocyte% 6.9 % (0-10); NRBC Flagged by Analyzer 0 % (0-5); Neutrophil # 2.39 X10^3/uL (2.7-7.7); Neutrophil % 75.2 % (47-70); POSITIVE DIFFERENTIAL YES; Platelet Count 144 K/mm3 (150-450); RBC Distribution Width CV 14.4 % (11.6-14.6); RBC Distribution Width SD 49.1 fl (35.1-43.9); Red Blood Count 3.23 M/mm3 (4.6-6.2); White Blood Count 3.2 K/mm3 (4.4-11.0)
[2021-08-02 06:13] LABS: Differential Indicated SCAN CRITERIA MET
[2021-08-02 06:33] LABS: Differential Comment SCANNED
[2021-08-02 06:40] LABS: Anion Gap 3 (5-15); BUN 33 mg/dL (7-18); BUN/Creat Ratio 33.5 RATIO (10-20); Calcium,Total 7.9 mg/dL (8.5-10.1); Chloride 104 mmol/L (98-107); Creatinine, Serum 0.98 mg/dL (0.70-1.30); EST Glomerular Filtration Rate 80 mL/min (>60); Est Glom Filt Rate - Afr Amer 97 mL/min (>60); Estimated Creatinine Clearance 52.22 ml/min; Glucose 96 mg/dL (74-106); Magnesium 2.3 mg/dL (1.6-2.6); Phosphorus 3.1 mg/dL (2.5-4.9); Potassium 3.8 mmol/L (3.5-5.1); Sodium Level 144 mmol/L (136-145)
[2021-08-02] MEDS: Enoxaparin 40 MG/0.4 ML Syringe SC (08:50)
[2021-08-02] MEDS: Furosemide 20 MG Tablet PO (08:50)
[2021-08-02] MEDS: Mirtazapine 15 MG Tablet 7.5 MG PO (08:50)
[2021-08-02] MEDS: predniSONE 10 MG Tablet PO (08:50)
[2021-08-02] MEDS: Sertraline 50 MG Tablet PO (08:50)
[2021-08-02] MEDS: Magnesium Chloride 64 MG Delay Rel.Tablet 128 MG PO (08:50)
[2021-08-02] MEDS: Famotidine 200 MG/20 ML MDV 20 MG in 0.9% Normal Saline (Pres. free 8 ML 300 MG IV ×2 (09:10→21:36)
[2021-08-02] MEDS: Ondansetron 4 MG/2 ML Vial IV (09:17)
[2021-08-02] MEDS: Jevity 1.5. 1,000 ML Bottle 250 ML GT ×2 (09:50→12:41)
--- NOTE | 2021-08-02 11:20 | PCM.PN.INT ---
Assessment & Plan Assessment/Plan (1) Acute on chronic respiratory failure with hypoxia and hypercapnia: PLAN: RECOMMENDATIONS: 1. Recommend AVAPS therapy via mask or trach with naps and nightly. 2. Continue supplemental oxygen throughout the day per baseline regimen. 3. Continue baseline prednisone 4. Continue antimicrobials to complete a 7-day course 5. Continue aerosol treatments along with aggressive bronchopulmonary hygiene. 6. Okay to discharge from pulmonary perspective IMPRESSIONS: 1. Acute combined on chronic hypoxemic respiratory failure The patient has a baseline medical history including COPD and chronic hypoxemic respiratory failure. The patient was apparently left off of his supplemental oxygen at his custodial facility, which led to worsening hypoxemia and hypercapnia. The patient, however, responded appropriately to AVAPS therapy. Patient would benefit from continuation of this at the skilled nursing. Unclear Corynebacterium is a true respiratory infection or skin contamination. Agree with transition to Unasyn to complete a total of 7 days of antibiotics. Continue bronchodilators as ordered. Likely okay to transition back to baseline prednisone therapy. Okay to be discharged from a pulmonary perspective. Follow-up with primary motion study technician. Variable oxygenation status may be secondary to the recruitment, but patient has been resistant to AVAPS and other recruitment measures. 2. Encephalopathy Resolved. Most likely hypercapnic in etiology. The patient responded to the use of noninvasive positive pressure ventilatory support. CT head was unremarkable. The patient will interact appropriately, but takes substantial stimulus. 3. Recent prolonged hospitalization with empyema leading to tracheostomy and PEG Continue supportive measures as noted above. Speech therapy recommended modified diet. Nutritional support via PEG tube can be entertained in the interim. Potassium repletion ordered for a PEG for hypokalemia when indicated. 4. History of COPD/paroxysmal atrial fibrillation/malnutrition/history of alcohol and tobacco dependency Complicates care, management, recovery and prognosis. Continue supportive measures as noted above. Physical therapy to evaluate the patient. Okay to discharge from my perspective with follow-up with primary motion study technician. This note was generated with [employer] dictation software. It may contain incorrect words, spelling, and punctuation that were not noted in checking the note before signing. Subjective Subjective Patient did okay overnight. Discharge continues to be delayed secondary to periodic desaturations. Patient subjectively feels unchanged compared to yesterday. No chest pain has been reported. No aspiration events have been reported. Patient is not reporting any significant coughing. No epistaxis has been reported. Objective Data Objective Data Vital Signs: Vital Signs Temp Pulse Resp BP Pulse Ox 36.9 C 64 18 142/77 H 90 08/02/21 08:47 08/02/21 08:47 08/02/21 08:47 08/02/21 08:47 08/02/21 11:16 Oxygen Flow Rate (L/min) 8 Oxygen Delivery Method Nasal Cannula Weight: 51.9 kg Body Mass Index (BMI) 18.6 Intake & Output: Intake and Output for Last 24 Hours 07/31/21 08/01/21 08/02/21 23:59 23:59 23:59 Intake Total 1218 / 1418 2768 / 2868 784 / 784 Output Total 1600 / 2000 1400 / 1400 200 / 200 Balance -382 / -582 1368 / 1468 584 / 584 Medical Nutrition Assessment Dietitian: Malnutrition Criteria Met Start: 07/29/21 08:16 Freq: Status: Active Protocol: Document 08/01/21 11:01 (Rec: 08/01/21 11:01 [id number]) Nutrition Malnutrition Evidence of Malnutrition Exists Yes Malnutrition (moderate): Chronic Evidenced By Suboptimal Energy Intake ( Moderate),Physical Changes ( Moderate) Intake Problem Inadequate Oral Intake Etiology related to dysphagia, pt dislike of pureed food and nectar-thick liquids Signs/Symptoms as evidenced by need for PEG TF support and PO meeting less than 50% estimated nutrition needs Status Active Problem Clinical Problem Chronic Disease or Condition Related Malnutrition Etiology Severe protein-calorie malnutrition in the context of chronic disease related to difficulty swallowing, increased energy expenditure and inadequate oral intake Signs/Symptoms as evidenced by PO meeting less than 50% estimated nutrition needs, PEG TF support, BMI 19.7, +NFPA with obvious signs of muscle/fat wasting in the face, orbital and temporal regions Status Active Problem Recommendation Dietitian Recommendations/Changes 1) Continue Regular diet- texture/consistency modifications per MACHINE DESIGN CHECKER. Will add magic cup/ensure pudding w / meals for additional calories/protein if consumed. 2) Will order Jevity 1.5 250mL bolus TID via PEG if PO intake at meals is <50%. 200mL H2O flush w/ each bolus. As recommended, enteral nutrition would provide 1125 calories, 67 g protein, and 1398mL total fluid/day, meeting ~66% of pt 's estimated calorie and 90% of estimated protein needs. 3) Adjust enteral nutrition if wt loss occurs and/or PO intake is insignificant. 4) Continue daily wts. Lab / Micro Data Result Diagrams: 08/02/21 05:22 08/02/21 05:22 Labs: Laboratory Results - last 24 hr 08/02/21 05:22: WBC 3.2 L, RBC 3.23 L, Hgb 9.8 L, Hct 29.9 L, MCV 92.6, MCH 30.3, MCHC 32.8, RDW Std Deviation 49.1 H, RDW Coeff of Vita 14.4, Plt Count 144 L, MPV 9.6, Immature Gran % (Auto) 0.600, Neut % (Auto) 75.2 H, Lymph % (Auto) 16.0 L, [place] % (Auto) 6.9, Eos % (Auto) 1.3, Baso % (Auto) 0.0, Absolute Neuts (auto) 2.4, Absolute Lymphs (auto) 0.51 L, Nucleated RBC % 0, Differential Comment SCANNED, Diff Path Review October foll 08/02/21 05:22: Sodium 144, Potassium 3.8, Chloride 104, Carbon Dioxide 37.0 H, Anion Gap 3 L, BUN 33 H, Creatinine 0.98, Estim Creat Clear Calc 52.22, Est GFR (MDRD) Af Amer 97, Est GFR (MDRD) Non-Af 80, BUN/Creatinine Ratio 33.5 H, Glucose 96, Calcium 7.9 L, Phosphorus 3.1, Magnesium 2.3 Micro: Microbiology 07/27/21 19:00 Blood Culture (Wb) - Venous Blood Culture - Final No growth in 5 days. 07/27/21 18:50 Blood Culture (Wb) - Venous Blood Culture - Final No growth in 5 days. 07/27/21 20:30 Interface Orders Urine Culture - Final Culture exhibits no growth. 07/28/21 04:20 Sputum, Expectorated/Coughed Gram Stain - Final 07/28/21 04:20 Sputum, Expectorated/Coughed Respiratory Culture - Final Corynebacterium striatum 07/27/21 22:50 Urine Catheter - Navarrete Streptococcus pneumoniae Antigen (M - Final Physical Exam Const alert and no apparent distress General Appearance: cooperative and frail HEENT normocephalic and head/scalp atraumatic Eyes PERRL, EOMs intact bilaterally and conjunctivae normal Neck supple Neck Narrative: Tracheostomy site is C/D/I and capped. Good vocalization when chooses to speak. General: trachea midline Chest inspection of chest normal Resp Auscultation: diminished lung sounds Cardio regular rate and regular rhythm GI normal to inspection, nondistended, normoactive bowel sounds Inspection: GI tube present Extremity no clubbing, cyanosis or edema Skin no rashes or lesions noted Neuro CN's II-XII intact bilaterally and no focal motor deficits Psych cooperative and affect normal Charges/Coding Visit Charges Inpatient E&M: 07673 Subs Hosp L2
[2021-08-02 14:03] LABS: Pathologist Review Reviewed
--- NOTE | 2021-08-02 17:01 | PN.HOSP_ITS ---
Subjective Subjective Still apathetic about his care, started on Zoloft. He refused to do the ambulatory pulse ox today. He required fuses to wear AVAPS therefore recruitment will always be an issue and I do not see that this should hold back any discharge planning. We will try to discuss the situation with his mother and transition him back to the senior living care. Objective Data Objective Data Vital Signs: Vital Signs Temp Pulse Resp BP Pulse Ox 97.7 F L 66 16 123/57 H 90 08/02/21 15:00 08/02/21 15:00 08/02/21 15:00 08/02/21 15:00 08/02/21 15:31 Oxygen Flow Rate (L/min) 7 Oxygen Delivery Method Nasal Cannula Weight: 114 lb 6.719 oz Body Mass Index (BMI) 18.6 Intake & Output: Intake and Output for Last 24 Hours 08/01/21 08/02/21 08/03/21 03:59 03:59 03:59 Intake Total 1178 / 1178 2668 / 2668 2114 / 2114 Output Total 1300 / 1300 1000 / 1000 500 / 500 Balance -122 / -122 1668 / 1668 1614 / 1614 Medical Nutrition Assessment Dietitian: Malnutrition Criteria Met Start: 07/29/21 08:16 Freq: Status: Active Protocol: Document 08/02/21 14:09 (Rec: 08/02/21 14:09 [id number]) Nutrition Malnutrition Evidence of Malnutrition Exists Yes Malnutrition (moderate): Chronic Evidenced By Suboptimal Energy Intake ( Moderate),Physical Changes ( Moderate) Intake Problem Inadequate Oral Intake Etiology related to dysphagia, pt dislike of pureed food and nectar-thick liquids Signs/Symptoms as evidenced by need for PEG TF support and PO meeting less than 50% estimated nutrition needs Status Active Problem Clinical Problem Chronic Disease or Condition Related Malnutrition Etiology Severe protein-calorie malnutrition in the context of chronic disease related to difficulty swallowing, increased energy expenditure and inadequate oral intake Signs/Symptoms as evidenced by PO meeting less than 50% estimated nutrition needs, PEG TF support, BMI 19.7, +NFPA with obvious signs of muscle/fat wasting in the face, orbital and temporal regions Status Active Problem Recommendation Dietitian Recommendations/Changes 1) Continue Regular diet- texture/consistency modifications per CALENDER LET OFF OPERATOR. Will add magic cup/ensure pudding w / meals for additional calories/protein if consumed. 2) Will continue Jevity 1.5 250mL bolus TID via PEG if PO intake at meals is <50%. 200mL H2O flush w/ each bolus. As recommended, enteral nutrition would provide 1125 calories, 67 g protein, and 1398mL total fluid/day, meeting ~66% of pt 's estimated calorie and 90% of estimated protein needs. 3) Adjust enteral nutrition if wt loss occurs and/or if PO intake remains insignificant. 4) Continue daily wts. Lab / Micro Data Result Diagrams: 08/02/21 05:22 08/02/21 05:22 Labs: Laboratory Results - last 24 hr 08/02/21 05:22: WBC 3.2 L, RBC 3.23 L, Hgb 9.8 L, Hct 29.9 L, MCV 92.6, MCH 30.3, MCHC 32.8, RDW Std Deviation 49.1 H, RDW Coeff of Vita 14.4, Plt Count 144 L, MPV 9.6, Immature Gran % (Auto) 0.600, Neut % (Auto) 75.2 H, Lymph % (Auto) 16.0 L, [place] % (Auto) 6.9, Eos % (Auto) 1.3, Baso % (Auto) 0.0, Absolute Neuts (auto) 2.4, Absolute Lymphs (auto) 0.51 L, Nucleated RBC % 0, Differential Comment SCANNED, Diff Path Review Reviewed 08/02/21 05:22: Sodium 144, Potassium 3.8, Chloride 104, Carbon Dioxide 37.0 H, Anion Gap 3 L, BUN 33 H, Creatinine 0.98, Estim Creat Clear Calc 52.22, Est GFR (MDRD) Af Amer 97, Est GFR (MDRD) Non-Af 80, BUN/Creatinine Ratio 33.5 H, Glucose 96, Calcium 7.9 L, Phosphorus 3.1, Magnesium 2.3 Micro: Microbiology 07/27/21 19:00 Blood Culture (Wb) - Venous Blood Culture - Final No growth in 5 days. 07/27/21 18:50 Blood Culture (Wb) - Venous Blood Culture - Final No growth in 5 days. 07/27/21 20:30 Interface Orders Urine Culture - Final Culture exhibits no growth. 07/28/21 04:20 Sputum, Expectorated/Coughed Gram Stain - Final 07/28/21 04:20 Sputum, Expectorated/Coughed Respiratory Culture - Final Corynebacterium striatum 07/27/21 22:50 Urine Catheter - Navarrete Streptococcus pneumoniae Antigen (M - Final Physical Exam Narrative Const alert, oriented x3 and no apparent distress General Appearance: cooperative Nutritional Appearance: cachectic HEENT normocephalic Mouth: dry mucous membranes Eyes PERRL, EOMs intact bilaterally and conjunctivae normal Neck supple and no JVD Neck Narrative: Trach in place, capped Resp normal respiratory effort, no retractions and no use of accessory muscles Auscultation: diminished lung sounds; Negative for crackles, rales, rhonchi or wheezes Cardio regular rate, regular rhythm, S1 normal heart sound, S2 normal heart sound and no murmurs GI soft to palpation, non-tender and non-distended; Negative for hepatosplenomegaly GI Narrative: PEG tube in place Extremity no clubbing, cyanosis or edema Skin no rashes or lesions noted Neuro no focal motor deficits and no sensory deficits noted Psych Mood & Affect: depressed and apathetic Assessment & Plan Assessment/Plan (1) Acute on chronic respiratory failure with hypoxia and hypercapnia: (2) HCAP (healthcare-associated pneumonia): (3) Dysphagia: PLAN: 1. Acute combined on chronic hypoxic respiratory failure due to aspiration pneumonia secondary to dysphagia -Recent prolonged hospitalization with empyema leading to tracheostomy tube and PEG -Continues to refuse AVAPS -Given his lack of compliance with interventions, will discuss the situation wi th his mother but ultimately will likely have to send him back to the senior living and they will just have to deal with periodic episodes of hypoxia ?He did refuse to do the ambulatory pulse ox today -Continue antimicrobials for 7 days total -Continue with his baseline steroids -Continue aerosols -We will plan to discharge patient on AVAPS -Would recommend pulmonary follow-up upon discharge for evaluation and direction on decannulation if possible -Pulmonary following-appreciate input ?Speech therapy is recommending a modified diet with pur?ed nectar thick liquid 2. COPD not in exacerbation ?Stable ?Continue with inhalers and chronic steroids 3. Depression/anxiety ?He continues to appear apathetic and depressed ?We will continue with his BuSpar and Remeron but will also add Zoloft DVT: Lovenox Charges/Coding Visit Charges Inpatient E&M: 67021 Subs Hosp L2
[2021-08-03] VITALS (17 sets, daily range): BP systolic 118–134; BP diastolic 58–69; PULSE 65–71; RESP 16–18; TEMP 36.4–36.9; O2SAT 82–99
--- NOTE | 2021-08-03 00:04 | NURSING ---
PT REFUSING TO WEAR HIS AVAPS TONIGHT. INCREASED 02 FROM 6L TO 7L N/C, PT IS A MOUTH BREATHER WHILE SLEEPING AND 02 SATS ON 6L N/C DROPPED TO 88%. WILL CONTINUE TO MONITOR
[2021-08-03 06:23] LABS: Absolute Lymphocyte Count 0.57 X10^3/uL (0.83-4.51); Basophil# 0.01 X10^3/uL; Basophil% 0.2 % (0-1); Eosinophils% 4.9 % (0-5); Hematocrit 32.6 % (40-54); Hemoglobin 10.1 g/dL (13.0-16.5); Lymphocyte # 0.57 X10^3/ul (0.83-4.51); Lymphocyte % 13.9 % (19-41); Mean Corpuscular Volume 96.7 fL (80-94); Mean Platelet Vol. 9.4 fl (6.2-12.0); Monocyte# 0.31 X10^3/uL; Monocyte% 7.6 % (0-10); NRBC Flagged by Analyzer 0 % (0-5); Neutrophil # 2.98 X10^3/uL (2.7-7.7); Neutrophil % 72.7 % (47-70); POSITIVE DIFFERENTIAL YES; Platelet Count 155 K/mm3 (150-450); RBC Distribution Width CV 14.6 % (11.6-14.6); Red Blood Count 3.37 M/mm3 (4.6-6.2); White Blood Count 4.1 K/mm3 (4.4-11.0)
[2021-08-03 06:48] LABS: Differential Indicated SCAN CRITERIA MET
[2021-08-03 06:49] LABS: Anion Gap 4 (5-15); BUN 41 mg/dL (7-18); BUN/Creat Ratio 26.8 RATIO (10-20); Chloride 104 mmol/L (98-107); Creatinine, Serum 1.53 mg/dL (0.70-1.30); EST Glomerular Filtration Rate 48 mL/min (>60); Est Glom Filt Rate - Afr Amer 58 mL/min (>60); Estimated Creatinine Clearance 35.51 ml/min; Glucose 88 mg/dL (74-106); Potassium 3.8 mmol/L (3.5-5.1); Sodium Level 145 mmol/L (136-145)
[2021-08-03 06:50] LABS: Differential Comment SCANNED
--- NOTE | 2021-08-03 08:26 | NURSING ---
Addendum entered by Diana See 08/03/21 11:16: This RN into room to give medications and tube feed bolus. Pt stated 'no'. Education provided on need for medication and tube feed, pt refused. Original Note: Pt refused ambulatory pulse ox to determine home oxygen needs. Pt also would not allow this RN to complete morning assessment or given morning medications. Pt staring at TV and will not answer questions; when asked if he is ignoring questions pt stated yes and would not allow further care to be provided. This RN advised pt that I would order breakfast for him and return later.
--- NOTE | 2021-08-03 08:42 | PCM.PN.INT ---
Assessment & Plan Assessment/Plan (1) Acute on chronic respiratory failure with hypoxia and hypercapnia: PLAN: RECOMMENDATIONS: 1. Recommend AVAPS therapy via mask or trach with naps and nightly. 2. Continue supplemental oxygen throughout the day per baseline regimen. 3. Continue baseline prednisone 4. Continue antimicrobials to complete a 7-day course 5. Continue aerosol treatments along with aggressive bronchopulmonary hygiene. 6. We will schedule mucolytic therapy. IMPRESSIONS: 1. Acute combined on chronic hypoxemic respiratory failure The patient has a baseline medical history including COPD and chronic hypoxemic respiratory failure. The patient was apparently left off of his supplemental oxygen at his halfway facility, which led to worsening hypoxemia and hypercapnia. The patient, however, responded appropriately to AVAPS therapy. Patient would benefit from [facility] of this at [facility]. Unclear Corynebacterium is a true respiratory infection or skin contamination. Agree with transition to Unasyn to complete a total of 7 days of antibiotics. Continue bronchodilators as ordered. Patient tolerating baseline prednisone therapy. Clinical suspicion for mucous plugging leading to highly variable oxygen requirements. This will be very difficult to control if patient continues to refuse pulmonary toileting. Will schedule mucolytic therapy. Do not believe this requires further hospitalization, but addressing CODE STATUS given refusal for maintenance therapy would be recommended. 2. Encephalopathy Resolved. Most likely hypercapnic in etiology. The patient responded to the use of noninvasive positive pressure ventilatory support. CT head was unremarkable. The patient will interact appropriately, but takes substantial stimulus. 3. Recent prolonged hospitalization with empyema leading to tracheostomy and PEG Continue supportive measures as noted above. Speech therapy recommended modified diet. Nutritional support via PEG tube can be entertained in the interim. Potassium repletion ordered for a PEG for hypokalemia when indicated. 4. History of COPD/paroxysmal atrial fibrillation/malnutrition/history of alcohol and tobacco dependency Complicates care, management, recovery and prognosis. Continue supportive measures as noted above. Physical therapy to evaluate the patient. Okay to discharge from my perspective with follow-up with primary russian history professor. This note was generated with [employer] dictation software. It may contain incorrect words, spelling, and punctuation that were not noted in checking the note before signing. Subjective Subjective Patient continues to have highly variable oxygen requirements. Patient reports this is secondary to his nasal cannula being broken and falling out of his nose. Nursing is reporting the patient is refusing any suctioning or pulmonary toileting. Objective Data Objective Data Vital Signs: Vital Signs Temp Pulse Resp BP Pulse Ox 36.6 C 67 16 118/63 92 08/03/21 05:00 08/03/21 07:00 08/03/21 08:20 08/03/21 05:00 08/03/21 05:00 Oxygen Flow Rate (L/min) 7 Oxygen Delivery Method High Flow Weight: 55.1 kg Body Mass Index (BMI) 18.6 Intake & Output: Intake and Output for Last 24 Hours 08/01/21 08/02/21 08/03/21 23:59 23:59 23:59 Intake Total 2768 / 2868 3005.5 / 3055.5 956.5 / 956.5 Output Total 1400 / 1400 650 / 825 375 / 375 Balance 1368 / 1468 2355.5 / 2230.5 581.5 / 581.5 Medical Nutrition Assessment Dietitian: Malnutrition Criteria Met Start: 07/29/21 08:16 Freq: Status: Active Protocol: Document 08/02/21 14:09 (Rec: 08/02/21 14:09 [id number]) Nutrition Malnutrition Evidence of Malnutrition Exists Yes Malnutrition (moderate): Chronic Evidenced By Suboptimal Energy Intake ( Moderate),Physical Changes ( Moderate) Intake Problem Inadequate Oral Intake Etiology related to dysphagia, pt dislike of pureed food and nectar-thick liquids Signs/Symptoms as evidenced by need for PEG TF support and PO meeting less than 50% estimated nutrition needs Status Active Problem Clinical Problem Chronic Disease or Condition Related Malnutrition Etiology Severe protein-calorie malnutrition in the context of chronic disease related to difficulty swallowing, increased energy expenditure and inadequate oral intake Signs/Symptoms as evidenced by PO meeting less than 50% estimated nutrition needs, PEG TF support, BMI 19.7, +NFPA with obvious signs of muscle/fat wasting in the face, orbital and temporal regions Status Active Problem Recommendation Dietitian Recommendations/Changes 1) Continue Regular diet- texture/consistency modifications per RESERVOIR ENGINEERING MANAGER. Will add magic cup/ensure pudding w / meals for additional calories/protein if consumed. 2) Will continue Jevity 1.5 250mL bolus TID via PEG if PO intake at meals is <50%. 200mL H2O flush w/ each bolus. As recommended, enteral nutrition would provide 1125 calories, 67 g protein, and 1398mL total fluid/day, meeting ~66% of pt 's estimated calorie and 90% of estimated protein needs. 3) Adjust enteral nutrition if wt loss occurs and/or if PO intake remains insignificant. 4) Continue daily wts. Lab / Micro Data Result Diagrams: 08/03/21 05:54 08/03/21 05:54 Labs: Laboratory Results - last 24 hr 08/02/21 05:22: Diff Path Review Reviewed 08/03/21 05:54: WBC 4.1 L, RBC 3.37 L, Hgb 10.1 L, Hct 32.6 L, MCV 96.7 H, MCH 30.0, MCHC 31.0 L D, RDW Std Deviation 51.0 H, RDW Coeff of Vita 14.6, Plt Count 155, MPV 9.4, Immature Gran % (Auto) 0.700, Neut % (Auto) 72.7 H, Lymph % (Auto) 13.9 L, [place] % (Auto) 7.6, Eos % (Auto) 4.9, Baso % (Auto) 0.2, Absolute Neuts (auto) 3.0, Absolute Lymphs (auto) 0.57 L, Nucleated RBC % 0, Differential Comment SCANNED, Diff Path Review May foll 08/03/21 05:54: Sodium 145, Potassium 3.8, Chloride 104, Carbon Dioxide 37.0 H, Anion Gap 4 L, BUN 41 H, Creatinine 1.53 H, Estim Creat Clear Calc 35.51, Est GFR (MDRD) Af Amer 58 L, Est GFR (MDRD) Non-Af 48 L, BUN/Creatinine Ratio 26.8 H, Glucose 88, Calcium 8.0 L Micro: Microbiology 07/27/21 19:00 Blood Culture (Wb) - Venous Blood Culture - Final No growth in 5 days. 07/27/21 18:50 Blood Culture (Wb) - Venous Blood Culture - Final No growth in 5 days. 07/27/21 20:30 Interface Orders Urine Culture - Final Culture exhibits no growth. 07/28/21 04:20 Sputum, Expectorated/Coughed Gram Stain - Final 07/28/21 04:20 Sputum, Expectorated/Coughed Respiratory Culture - Final Corynebacterium striatum 07/27/21 22:50 Urine Catheter - Navarrete Streptococcus pneumoniae Antigen (M - Final Physical Exam Const alert and no apparent distress General Appearance: cooperative and frail HEENT normocephalic and head/scalp atraumatic Eyes PERRL, EOMs intact bilaterally and conjunctivae normal Neck supple Neck Narrative: Tracheostomy site is C/D/I and capped. Good vocalization when chooses to speak. General: trachea midline Chest inspection of chest normal Resp Auscultation: diminished lung sounds Cardio regular rate and regular rhythm GI normal to inspection, nondistended, normoactive bowel sounds Inspection: GI tube present Extremity no clubbing, cyanosis or edema Skin no rashes or lesions noted Neuro CN's II-XII intact bilaterally and no focal motor deficits Psych cooperative and affect normal Charges/Coding Visit Charges Inpatient E&M: 52342 Subs Hosp L2
[2021-08-03] MEDS: 0.9 % NaCl (Sterile) Posiflush 10 mL IV (12:22)
[2021-08-03 12:33] LABS: Pathologist Review Reviewed
[2021-08-03] MEDS: Jevity 1.5. 1,000 ML Bottle 250 ML GT ×2 (12:38→18:01)
[2021-08-03] MEDS: guaiFENesin 10 ML UDC (200MG/10ML) 20 ML PO ×2 (12:39→18:03)
[2021-08-03 13:41] LABS: Anion Gap 2 (5-15); BUN 44 mg/dL (7-18); BUN/Creat Ratio 23.8 RATIO (10-20); Chloride 106 mmol/L (98-107); Creatinine, Serum 1.85 mg/dL (0.70-1.30); EST Glomerular Filtration Rate 39 mL/min (>60); Est Glom Filt Rate - Afr Amer 47 mL/min (>60); Estimated Creatinine Clearance 29.37 ml/min; Glucose 106 mg/dL (74-106); Potassium 4.1 mmol/L (3.5-5.1); Sodium Level 146 mmol/L (136-145)
[2021-08-03] MEDS: 0.9% Normal Saline 1,000 ML 75 ML IV (15:13)
--- NOTE | 2021-08-03 16:29 | PN.HOSP_ITS ---
Subjective Subjective No issues overnight, states that a lot of his breathing issues is due to his nasal cannula. However when nurses did suction him his oxygen saturations improved significantly. Objective Data Objective Data Vital Signs: Vital Signs Temp Pulse Resp BP Pulse Ox 98.5 F 68 16 129/65 H 99 08/03/21 14:20 08/03/21 15:00 08/03/21 14:20 08/03/21 14:20 08/03/21 14:24 Oxygen Flow Rate (L/min) 4 Oxygen Delivery Method High Flow Weight: 121 lb 7.595 oz Body Mass Index (BMI) 18.6 Intake & Output: Intake and Output for Last 24 Hours 08/02/21 08/03/21 08/04/21 03:59 03:59 03:59 Intake Total 2668 / 2668 2955.5 / 2955.5 1388.0 / 1388.0 Output Total 1000 / 1000 825 / 825 400 / 400 Balance 1668 / 1668 2130.5 / 2130.5 988.0 / 988.0 Medical Nutrition Assessment Dietitian: Malnutrition Criteria Met Start: 07/29/21 08:16 Freq: Status: Active Protocol: Document 08/02/21 14:09 AG (Rec: 08/02/21 14:09 AG [id number]) Nutrition Malnutrition Evidence of Malnutrition Exists Yes Malnutrition (moderate): Chronic Evidenced By Suboptimal Energy Intake ( Moderate),Physical Changes ( Moderate) Intake Problem Inadequate Oral Intake Etiology related to dysphagia, pt dislike of pureed food and nectar-thick liquids Signs/Symptoms as evidenced by need for PEG TF support and PO meeting less than 50% estimated nutrition needs Status Active Problem Clinical Problem Chronic Disease or Condition Related Malnutrition Etiology Severe protein-calorie malnutrition in the context of chronic disease related to difficulty swallowing, increased energy expenditure and inadequate oral intake Signs/Symptoms as evidenced by PO meeting less than 50% estimated nutrition needs, PEG TF support, BMI 19.7, +NFPA with obvious signs of muscle/fat wasting in the face, orbital and temporal regions Status Active Problem Recommendation Dietitian Recommendations/Changes 1) Continue Regular diet- texture/consistency modifications per ENGINEERING DEPARTMENT CHAIR. Will add magic cup/ensure pudding w / meals for additional calories/protein if consumed. 2) Will continue Jevity 1.5 250mL bolus TID via PEG if PO intake at meals is <50%. 200mL H2O flush w/ each bolus. As recommended, enteral nutrition would provide 1125 calories, 67 g protein, and 1398mL total fluid/day, meeting ~66% of pt 's estimated calorie and 90% of estimated protein needs. 3) Adjust enteral nutrition if wt loss occurs and/or if PO intake remains insignificant. 4) Continue daily wts. Lab / Micro Data Result Diagrams: 08/03/21 05:54 08/03/21 13:05 Labs: Laboratory Results - last 24 hr 08/03/21 05:54: WBC 4.1 L, RBC 3.37 L, Hgb 10.1 L, Hct 32.6 L, MCV 96.7 H, MCH 30.0, MCHC 31.0 L D, RDW Std Deviation 51.0 H, RDW Coeff of Vita 14.6, Plt Count 155, MPV 9.4, Immature Gran % (Auto) 0.700, Neut % (Auto) 72.7 H, Lymph % (Auto) 13.9 L, [place] % (Auto) 7.6, Eos % (Auto) 4.9, Baso % (Auto) 0.2, Absolute Neuts (auto) 3.0, Absolute Lymphs (auto) 0.57 L, Nucleated RBC % 0, Differential Comment SCANNED, Diff Path Review Reviewed 08/03/21 05:54: Sodium 145, Potassium 3.8, Chloride 104, Carbon Dioxide 37.0 H, Anion Gap 4 L, BUN 41 H, Creatinine 1.53 H, Estim Creat Clear Calc 35.51, Est GFR (MDRD) Af Amer 58 L, Est GFR (MDRD) Non-Af 48 L, BUN/Creatinine Ratio 26.8 H , Glucose 88, Calcium 8.0 L 08/03/21 13:05: Sodium 146 H, Potassium 4.1, Chloride 106, Carbon Dioxide 38.0 H , Anion Gap 2 L, BUN 44 H, Creatinine 1.85 H, Estim Creat Clear Calc 29.37, Est GFR (MDRD) Af Amer 47 L, Est GFR (MDRD) Non-Af 39 L, BUN/Creatinine Ratio 23.8 H , Glucose 106, Calcium 8.0 L Micro: Microbiology 07/27/21 19:00 Blood Culture (Wb) - Venous Blood Culture - Final No growth in 5 days. 07/27/21 18:50 Blood Culture (Wb) - Venous Blood Culture - Final No growth in 5 days. 07/27/21 20:30 Interface Orders Urine Culture - Final Culture exhibits no growth. 07/28/21 04:20 Sputum, Expectorated/Coughed Gram Stain - Final 07/28/21 04:20 Sputum, Expectorated/Coughed Respiratory Culture - Final Corynebacterium striatum 07/27/21 22:50 Urine Catheter - Navarr[place] Streptococcus pneumoniae Antigen (M - Final Physical Exam Narrative Const alert, oriented x3 and no apparent distress General Appearance: cooperative Nutritional Appearance: cachectic HEENT normocephalic Mouth: dry mucous membranes Eyes PERRL, EOMs intact bilaterally and conjunctivae normal Neck supple and no JVD Neck Narrative: Trach in place, capped Resp normal respiratory effort, no retractions and no use of accessory muscles Auscultation: diminished lung sounds; Negative for crackles, rales, rhonchi or wheezes Cardio regular rate, regular rhythm, S1 normal heart sound, S2 normal heart sound and no murmurs GI soft to palpation, non-tender and non-distended; Negative for hepatosplenomegaly GI Narrative: PEG tube in place Extremity no clubbing, cyanosis or edema Skin no rashes or lesions noted Neuro no focal motor deficits and no sensory deficits noted Psych Mood & Affect: depressed and apathetic Assessment & Plan Assessment/Plan (1) Acute on chronic respiratory failure with hypoxia and hypercapnia: (2) HCAP (healthcare-associated pneumonia): (3) Dysphagia: PLAN: 1. Acute combined on chronic hypoxic respiratory failure due to aspiration pneumonia secondary to dysphagia/CHARLY -Recent prolonged hospitalization with empyema leading to tracheostomy tube and PEG -Continues to refuse AVAPS -Given his lack of compliance with interventions, will discuss the situation with his mother but ultimately will likely have to send him back to the long-term and they will just have to deal with periodic episodes of hypoxia -Continue antimicrobials for 7 days total -Continue with his baseline steroids ?We will discontinue his Lasix given his CHARLY start him on some fluids gently -Continue aerosols -Would recommend pulmonary follow-up upon discharge for evaluation and direction on decannulation if possible -Pulmonary following-appreciate input ?Speech therapy is recommending a modified diet with pur?ed nectar thick liquid ?Once again had a conversation about advanced care planning but it was short as he did not contribute much. Discussed that if he refuses to be compliant with interventions he will slowly he seems to understand this but did not have a [place] input. 2. COPD not in exacerbation ?Stable ?Continue with inhalers and chronic steroids 3. Depression/anxiety ?He continues to appear apathetic and depressed ?We will continue with his BuSpar and Remeron but will also add Zoloft DVT: Lovenox Charges/Coding Visit Charges Inpatient E&M: 94510 Subs Hosp L2
--- NOTE | 2021-08-03 23:32 | NURSING ---
Patient very uncooperative with staff, will complain of nausea then won't take any medication for it. Patient oxygen is up and down will not let RN suction trach-refusing a lot of care.
[2021-08-04] VITALS (21 sets, daily range): BP systolic 121–137; BP diastolic 58–78; PULSE 66–82; RESP 18–20; TEMP 36.6–36.9; O2SAT 66–98
[2021-08-04] MEDS: 0.9% Normal Saline 1,000 ML 75 ML IV ×2 (03:37→17:04)
--- NOTE | 2021-08-04 04:02 | NURSING ---
Patient refusing care at this time, will not let RN turn or flush PEG tube. States he does not want any medications. RN tried to talk to patient about plan of care and refusing care can decrease life quality. Patient gets very upset with RN.
[2021-08-04 04:22] LABS: Anion Gap 2 (5-15); BUN 50 mg/dL (7-18); BUN/Creat Ratio 24.8 RATIO (10-20); Calcium,Total 7.7 mg/dL (8.5-10.1); Chloride 107 mmol/L (98-107); Creatinine, Serum 2.02 mg/dL (0.70-1.30); EST Glomerular Filtration Rate 35 mL/min (>60); Est Glom Filt Rate - Afr Amer 42 mL/min (>60); Glucose 92 mg/dL (74-106); Potassium 3.8 mmol/L (3.5-5.1); Sodium Level 147 mmol/L (136-145)
--- NOTE | 2021-08-04 07:58 | PCM.PN.INT ---
Assessment & Plan Assessment/Plan (1) Acute on chronic respiratory failure with hypoxia and hypercapnia: PLAN: RECOMMENDATIONS: 1. Recommend AVAPS therapy via mask or trach with naps and nightly. 2. Continue supplemental oxygen throughout the day per baseline regimen. 3. Continue baseline prednisone 4. Okay to discontinue antibiotics tomorrow 5. Continue aerosol treatments along with aggressive bronchopulmonary hygiene. 6. Continued scheduled mucolytic therapy. 7. Hemodynamically stable on consistent nasal cannula. Will sign up from a pulmonary perspective IMPRESSIONS: 1. Acute combined on chronic hypoxemic respiratory failure The patient has a baseline medical history including COPD and chronic hypoxemic respiratory failure. The patient was apparently left off of his supplemental oxygen at his alf facility, which led to worsening hypoxemia and hypercapnia. The patient, however, responded appropriately to AVAPS therapy. Patient would benefit from continuation of this [facility]. Unclear Corynebacterium is a true respiratory infection or skin contamination. Agree with transition to Unasyn to complete a total of 7 days of antibiotics. Continue bronchodilators as ordered. Patient tolerating baseline prednisone therapy. Clinical suspicion for mucous plugging leading to highly variable oxygen requirements. This will be very difficult to control if patient continues to refuse pulmonary toileting. Recommend continuation of mucolytic therapy. Do not believe this requires further hospitalization, but addressing CODE STATUS given refusal for maintenance therapy would be recommended. Prognosis poor if patient continues to refuse supportive management. Will sign off from a pulmonary perspective. Please call with any issues. 2. Encephalopathy Resolved. Most likely hypercapnic in etiology. The patient responded to the use of noninvasive positive pressure ventilatory support. CT head was unremarkable. The patient will interact appropriately, but takes substantial stimulus. 3. Recent prolonged hospitalization with empyema leading to tracheostomy and PEG Continue supportive measures as noted above. Speech therapy recommended modified diet. Nutritional support via PEG tube can be entertained in the interim. Potassium repletion ordered for a PEG for hypokalemia when indicated. 4. History of COPD/paroxysmal atrial fibrillation/malnutrition/history of alcohol and tobacco dependency Complicates care, management, recovery and prognosis. Continue supportive measures as noted above. Physical therapy to evaluate the patient. Okay to discharge from my perspective with follow-up with primary emergency room nurse. This note was generated with [employer] dictation software. It may contain incorrect words, spelling, and punctuation that were not noted in checking the note before signing. Subjective Subjective Patient did okay overnight. No acute issues were reported. Patient's oxygen status has remained unchanged. Nursing continues to report patient is refusing any trach care. However, patient has not had significant changes in oxygen requirements over the last 24 hours. Objective Data Objective Data Vital Signs: Vital Signs Temp Pulse Resp BP Pulse Ox 36.9 C 66 20 H 126/65 H 93 08/04/21 02:35 08/04/21 07:00 08/04/21 02:35 08/04/21 02:35 08/04/21 02:35 Oxygen Flow Rate (L/min) 5 Oxygen Delivery Method Nasal Cannula Weight: 56 kg Body Mass Index (BMI) 18.6 Intake & Output: Intake and Output for Last 24 Hours 08/02/21 08/03/21 08/04/21 23:59 23:59 23:59 Intake Total 3005.5 / 3055.5 2019.5 / 2019.5 862.00 / 862.00 Output Total 650 / 825 575 / 575 250 / 250 Balance 2355.5 / 2230.5 1444.5 / 1444.5 612.00 / 612.00 Medical Nutrition Assessment Dietitian: Malnutrition Criteria Met Start: 07/29/21 08:16 Freq: Status: Active Protocol: Document 08/02/21 14:09 (Rec: 08/02/21 14:09 [id number]) Nutrition Malnutrition Evidence of Malnutrition Exists Yes Malnutrition (moderate): Chronic Evidenced By Suboptimal Energy Intake ( Moderate),Physical Changes ( Moderate) Intake Problem Inadequate Oral Intake Etiology related to dysphagia, pt dislike of pureed food and nectar-thick liquids Signs/Symptoms as evidenced by need for PEG TF support and PO meeting less than 50% estimated nutrition needs Status Active Problem Clinical Problem Chronic Disease or Condition Related Malnutrition Etiology Severe protein-calorie malnutrition in the context of chronic disease related to difficulty swallowing, increased energy expenditure and inadequate oral intake Signs/Symptoms as evidenced by PO meeting less than 50% estimated nutrition needs, PEG TF support, BMI 19.7, +NFPA with obvious signs of muscle/fat wasting in the face, orbital and temporal regions Status Active Problem Recommendation Dietitian Recommendations/Changes 1) Continue Regular diet- texture/consistency modifications per HIGH VALUE ASSOCIATE. Will add magic cup/ensure pudding w / meals for additional calories/protein if consumed. 2) Will continue Jevity 1.5 250mL bolus TID via PEG if PO intake at meals is <50%. 200mL H2O flush w/ each bolus. As recommended, enteral nutrition would provide 1125 calories, 67 g protein, and 1398mL total fluid/day, meeting ~66% of pt 's estimated calorie and 90% of estimated protein needs. 3) Adjust enteral nutrition if wt loss occurs and/or if PO intake remains insignificant. 4) Continue daily wts. Lab / Micro Data Result Diagrams: 08/03/21 05:54 08/04/21 03:39 Labs: Laboratory Results - last 24 hr 08/03/21 05:54: Diff Path Review Reviewed 08/03/21 13:05: Sodium 146 H, Potassium 4.1, Chloride 106, Carbon Dioxide 38.0 H, Anion Gap 2 L, BUN 44 H, Creatinine 1.85 H, Estim Creat Clear Calc 29.37, Est GFR (MDRD) Af Amer 47 L, Est GFR (MDRD) Non-Af 39 L, BUN/Creatinine Ratio 23.8 H, Glucose 106, Calcium 8.0 L 08/04/21 03:39: Sodium 147 H, Potassium 3.8, Chloride 107, Carbon Dioxide 38.0 H, Anion Gap 2 L, BUN 50 H, Creatinine 2.02 H, Estim Creat Clear Calc 26.90, Est GFR (MDRD) Af Amer 42 L, Est GFR (MDRD) Non-Af 35 L, BUN/Creatinine Ratio 24.8 H, Glucose 92, Calcium 7.7 L Micro: Microbiology 07/27/21 19:00 Blood Culture (Wb) - Venous Blood Culture - Final No growth in 5 days. 07/27/21 18:50 Blood Culture (Wb) - Venous Blood Culture - Final No growth in 5 days. 07/27/21 20:30 Interface Orders Urine Culture - Final Culture exhibits no growth. 07/28/21 04:20 Sputum, Expectorated/Coughed Gram Stain - Final 07/28/21 04:20 Sputum, Expectorated/Coughed Respiratory Culture - Final Corynebacterium striatum 07/27/21 22:50 Urine Catheter - Navarrete Streptococcus pneumoniae Antigen (M - Final Physical Exam Const alert and no apparent distress General Appearance: cooperative and frail HEENT normocephalic and head/scalp atraumatic Eyes PERRL, EOMs intact bilaterally and conjunctivae normal Neck supple Neck Narrative: Tracheostomy site is C/D/I and capped. Good vocalization when chooses to speak. General: trachea midline Chest inspection of chest normal Resp Auscultation: diminished lung sounds Cardio regular rate and regular rhythm GI normal to inspection, nondistended, normoactive bowel sounds Inspection: GI tube present Extremity no clubbing, cyanosis or edema Skin no rashes or lesions noted Neuro CN's II-XII intact bilaterally and no focal motor deficits Psych cooperative and affect normal Charges/Coding Visit Charges Inpatient E&M: 38402 Subs Hosp L2
[2021-08-04] MEDS: Jevity 1.5. 1,000 ML Bottle 250 ML GT ×2 (09:44→17:39)
--- NOTE | 2021-08-04 10:37 | PN.HOSP_ITS ---
Subjective Subjective Maintaining his oxygen sats at 5 to 6 L. He was able to do some oral care yesterday he still does not understand why he cannot drink water despite having explained to him multiple times about the aspiration risk. We will continue with gentle IV hydration secondary to his increasing kidney disease. Objective Data Objective Data Vital Signs: Vital Signs Temp Pulse Resp BP Pulse Ox 98.3 F 70 18 137/78 H 97 08/04/21 09:55 08/04/21 09:55 08/04/21 09:55 08/04/21 09:55 08/04/21 09:55 Oxygen Flow Rate (L/min) 5 Oxygen Delivery Method Nasal Cannula Weight: 123 lb 7.342 oz Body Mass Index (BMI) 18.6 Intake & Output: Intake and Output for Last 24 Hours 08/03/21 08/04/21 08/05/21 03:59 03:59 03:59 Intake Total 2955.5 / 2955.5 2557.50 / 2557.50 162 / 162 Output Total 825 / 825 400 / 400 250 / 250 Balance 2130.5 / 2130.5 2157.50 / 2157.50 -88 / -88 Medical Nutrition Assessment Dietitian: Malnutrition Criteria Met Start: 07/29/21 08:16 Freq: Status: Active Protocol: Document 08/02/21 14:09 (Rec: 08/02/21 14:09 [id number]) Nutrition Malnutrition Evidence of Malnutrition Exists Yes Malnutrition (moderate): Chronic Evidenced By Suboptimal Energy Intake ( Moderate),Physical Changes ( Moderate) Intake Problem Inadequate Oral Intake Etiology related to dysphagia, pt dislike of pureed food and nectar-thick liquids Signs/Symptoms as evidenced by need for PEG TF support and PO meeting less than 50% estimated nutrition needs Status Active Problem Clinical Problem Chronic Disease or Condition Related Malnutrition Etiology Severe protein-calorie malnutrition in the context of chronic disease related to difficulty swallowing, increased energy expenditure and inadequate oral intake Signs/Symptoms as evidenced by PO meeting less than 50% estimated nutrition needs, PEG TF support, BMI 19.7, +NFPA with obvious signs of muscle/fat wasting in the face, orbital and temporal regions Status Active Problem Recommendation Dietitian Recommendations/Changes 1) Continue Regular diet- texture/consistency modifications per TOOL AND DIE MAKER/DESIGNER. Will add magic cup/ensure pudding w / meals for additional calories/protein if consumed. 2) Will continue Jevity 1.5 250mL bolus TID via PEG if PO intake at meals is <50%. 200mL H2O flush w/ each bolus. As recommended, enteral nutrition would provide 1125 calories, 67 g protein, and 1398mL total fluid/day, meeting ~66% of pt 's estimated calorie and 90% of estimated protein needs. 3) Adjust enteral nutrition if wt loss occurs and/or if PO intake remains insignificant. 4) Continue daily wts. Lab / Micro Data Result Diagrams: 08/03/21 05:54 08/04/21 03:39 Labs: Laboratory Results - last 24 hr 08/03/21 05:54: Diff Path Review Reviewed 08/03/21 13:05: Sodium 146 H, Potassium 4.1, Chloride 106, Carbon Dioxide 38.0 H , Anion Gap 2 L, BUN 44 H, Creatinine 1.85 H, Estim Creat Clear Calc 29.37, Est GFR (MDRD) Af Amer 47 L, Est GFR (MDRD) Non-Af 39 L, BUN/Creatinine Ratio 23.8 H , Glucose 106, Calcium 8.0 L 08/04/21 03:39: Sodium 147 H, Potassium 3.8, Chloride 107, Carbon Dioxide 38.0 H , Anion Gap 2 L, BUN 50 H, Creatinine 2.02 H, Estim Creat Clear Calc 26.90, Est GFR (MDRD) Af Amer 42 L, Est GFR (MDRD) Non-Af 35 L, BUN/Creatinine Ratio 24.8 H , Glucose 92, Calcium 7.7 L Micro: Microbiology 07/27/21 19:00 Blood Culture (Wb) - Venous Blood Culture - Final No growth in 5 days. 07/27/21 18:50 Blood Culture (Wb) - Venous Blood Culture - Final No growth in 5 days. 07/27/21 20:30 Interface Orders Urine Culture - Final Culture exhibits no growth. 07/28/21 04:20 Sputum, Expectorated/Coughed Gram Stain - Final 07/28/21 04:20 Sputum, Expectorated/Coughed Respiratory Culture - Final Corynebacterium striatum 07/27/21 22:50 Urine Catheter - Navarrete Streptococcus pneumoniae Antigen (M - Final Physical Exam Narrative Const alert, oriented x3 and no apparent distress General Appearance: cooperative Nutritional Appearance: cachectic HEENT normocephalic Mouth: dry mucous membranes Eyes PERRL, EOMs intact bilaterally and conjunctivae normal Neck supple and no JVD Neck Narrative: Trach in place, capped Resp normal respiratory effort, no retractions and no use of accessory muscles Auscultation: diminished lung sounds; Negative for crackles, rales, rhonchi or wheezes Cardio regular rate, regular rhythm, S1 normal heart sound, S2 normal heart sound and no murmurs GI soft to palpation, non-tender and non-distended; Negative for hepatosplenomegaly GI Narrative: PEG tube in place Extremity no clubbing, cyanosis or edema Skin no rashes or lesions noted Neuro no focal motor deficits and no sensory deficits noted Psych Mood & Affect: depressed and apathetic Assessment & Plan Assessment/Plan (1) Acute on chronic respiratory failure with hypoxia and hypercapnia: (2) HCAP (healthcare-associated pneumonia): (3) Dysphagia: PLAN: 1. Acute combined on chronic hypoxic respiratory failure due to aspiration pneumonia secondary to dysphagia/CHARLY -Recent prolonged hospitalization with empyema leading to tracheostomy tube and PEG -Continues to refuse AVAPS -Given his lack of compliance with interventions, will discuss the situation with his mother but ultimately will likely have to send him back to the [facility] and they will just have to deal with periodic episodes of hypoxia -Continue antimicrobials for 7 days total, this will be completed on 08/05/2021 -Continue with his baseline steroids ?We will discontinue his Lasix given his CHARLY start him on some fluids gently -Continue aerosols -Would recommend pulmonary follow-up upon discharge for evaluation and direction on decannulation if possible ?Speech therapy is recommending a modified diet with pur?ed nectar thick liquid ?Pulmonology has signed off, once his renal function has improved we will plan for discharge back to the SNF 2. COPD not in exacerbation ?Stable ?Continue with inhalers and chronic steroids 3. Depression/anxiety ?He continues to appear apathetic and depressed ?We will continue with his BuSpar and Remeron but will also add Zoloft DVT: Lovenox Charges/Coding Visit Charges Inpatient E&M: 75876 Subs Hosp L2
--- NOTE | 2021-08-04 16:59 | NURSING ---
Pt refusing oral care today. Education provided to no effect.
[2021-08-04] MEDS: Ondansetron 4 MG/2 ML Vial IV (17:48)
--- NOTE | 2021-08-04 20:43 | PCM.PN.BLA ---
Progress Note Nurse reported that the patient's is refusing thickened liquids recommended by speech therapy and asking for thin liquids. Nurse to continue to offer thickened liquids and if patient refuses it is okay for him to have thin liquids per his request.
[2021-08-04] MEDS: Famotidine 200 MG/20 ML MDV 20 MG in 0.9% Normal Saline (Pres. free 8 ML 300 MG IV (21:11)
--- NOTE | 2021-08-04 23:25 | NURSING ---
Patients pulse ox is only 86% on the 15L high flow. Pt has been encouraged to cough up secretions but continues to refuse suctioning or breathing treatments. Respiratory therapy was notified for evaluation
[2021-08-05] VITALS (27 sets, daily range): BP systolic 122–132; BP diastolic 65–77; PULSE 64–78; RESP 12–22; TEMP 36.6–36.7; O2SAT 48–100
--- NOTE | 2021-08-05 06:06 | NURSING ---
Pt continues to refuse aerosol treatments or suctioning. Encouraged cough and deep breathing. Pt is at 83% on 15 [address] flow [address] Richards was notified, Pt remains full code.
[2021-08-05] MEDS: 0.9% Normal Saline 1,000 ML 75 ML IV (06:27)
[2021-08-05 06:33] LABS: Absolute Lymphocyte Count 0.48 X10^3/uL (0.83-4.51); Absolute Neutrophil Count 3.1 X10^3/uL (2.0-7.7); Basophil# 0.01 X10^3/uL; Basophil% 0.2 % (0-1); Eosinophil# 0.24 X10^3/uL; Eosinophils% 5.8 % (0-5); Hematocrit 28.7 % (40-54); Hemoglobin 9.2 g/dL (13.0-16.5); Lymphocyte # 0.48 X10^3/ul (0.83-4.51); Lymphocyte % 11.7 % (19-41); Mean Corp Hgb Conc 32.1 g/dL (32-36); Mean Corpuscular Hgb 30.2 pg (27.0-32.0); Mean Corpuscular Volume 94.1 fL (80-94); Mean Platelet Vol. 9.6 fl (6.2-12.0); Monocyte# 0.29 X10^3/uL; Monocyte% 7.1 % (0-10); NRBC Flagged by Analyzer 0 % (0-5); Neutrophil # 3.08 X10^3/uL (2.7-7.7); POSITIVE DIFFERENTIAL YES; Platelet Count 143 K/mm3 (150-450); RBC Distribution Width CV 14.5 % (11.6-14.6); RBC Distribution Width SD 50.6 fl (35.1-43.9); Red Blood Count 3.05 M/mm3 (4.6-6.2); White Blood Count 4.1 K/mm3 (4.4-11.0)
[2021-08-05 06:48] LABS: Differential Indicated SCAN CRITERIA MET
[2021-08-05 06:58] LABS: Anion Gap 2 (5-15); BUN 56 mg/dL (7-18); BUN/Creat Ratio 22.1 RATIO (10-20); Calcium,Total 7.8 mg/dL (8.5-10.1); Chloride 109 mmol/L (98-107); Creatinine, Serum 2.53 mg/dL (0.70-1.30); EST Glomerular Filtration Rate 27 mL/min (>60); Est Glom Filt Rate - Afr Amer 33 mL/min (>60); Estimated Creatinine Clearance 22.68 ml/min; Glucose 85 mg/dL (74-106); Potassium 3.8 mmol/L (3.5-5.1); Sodium Level 147 mmol/L (136-145)
[2021-08-05 07:06] LABS: Differential Comment SCANNED
--- NOTE | 2021-08-05 09:13 | CPS ---
Called to pt's room for saturation of 48% on 15 lpm. Pt was placed on Bipap and saturation came up to 100%
[2021-08-05] MEDS: Famotidine 200 MG/20 ML MDV 20 MG in 0.9% Normal Saline (Pres. free 8 ML 300 MG IV ×2 (10:33→23:06)
--- NOTE | 2021-08-05 11:59 | CPS ---
Fio2 decreased to 890%., Saturation 100%, Nurse aware of change
--- NOTE | 2021-08-05 13:21 | PN.HOSP_ITS ---
Subjective Subjective Had an acute respiratory event today where he necessitated being placed on BiPAP. He has been transitioned from 100% FiO2 down to 80% FiO2. Overnight he had to have his oxygen increased to about 15 L nasal cannula and he per report refused suctioning and then this morning he developed respiratory distress necessitating BiPAP. Since then he has been doing okay. Objective Data Objective Data Vital Signs: Vital Signs Temp Pulse Resp BP Pulse Ox 97.9 F 66 16 131/77 H 100 08/05/21 09:40 08/05/21 11:45 08/05/21 11:45 08/05/21 09:40 08/05/21 11:45 Oxygen Flow Rate (L/min) 15 Oxygen Delivery Method Bi-pap Weight: 128 lb 4.944 oz Body Mass Index (BMI) 18.6 Intake & Output: Intake and Output for Last 24 Hours 08/04/21 08/05/21 08/06/21 03:59 03:59 03:59 Intake Total 2557.50 / 2557.50 2149.25 / 2149.25 526.25 / 526.25 Output Total 400 / 400 775 / 775 350 / 350 Balance 2157.50 / 2157.50 1374.25 / 1374.25 176.25 / 176.25 Medical Nutrition Assessment Dietitian: Malnutrition Criteria Met Start: 07/29/21 08:16 Freq: Status: Active Protocol: Document 08/04/21 12:13 ELLEN (Rec: 08/04/21 12:13 ELLEN [id number]) Nutrition Malnutrition Evidence of Malnutrition Exists Yes Malnutrition (moderate): Chronic Evidenced By Suboptimal Energy Intake ( Moderate),Physical Changes ( Moderate) Intake Problem Inadequate Oral Intake Etiology related to dysphagia, pt dislike of pureed food and nectar-thick liquids Signs/Symptoms as evidenced by need for PEG TF support and PO meeting less than 50% estimated nutrition needs Status Active Problem Clinical Problem Chronic Disease or Condition Related Malnutrition Etiology Severe protein-calorie malnutrition in the context of chronic disease related to difficulty swallowing, increased energy expenditure and inadequate oral intake Signs/Symptoms as evidenced by PO meeting less than 50% estimated nutrition needs, PEG TF support, BMI 19.7, +NFPA with obvious signs of muscle/fat wasting in the face, orbital and temporal regions Status Active Problem Recommendation Dietitian Recommendations/Changes 1) Continue Regular diet- texture/consistency modifications per MANAGED CARE ANALYST. Will add magic cup/ensure pudding w / meals for additional calories/protein if consumed. 2) Will continue Jevity 1.5 250mL bolus TID via PEG if PO intake at meals is <50%. 200mL H2O flush w/ each bolus. As recommended, enteral nutrition would provide 1125 calories, 67 g protein, and 1398mL total fluid/day, meeting ~66% of pt 's estimated calorie and 90% of estimated protein needs. 3) Adjust enteral nutrition if wt loss occurs and/or if PO intake remains insignificant. 4) Continue daily wts. Lab / Micro Data Result Diagrams: 08/05/21 05:44 08/05/21 05:44 Labs: Laboratory Results - last 24 hr 08/05/21 05:44: Sodium 147 H, Potassium 3.8, Chloride 109 H, Carbon Dioxide 36.0 H, Anion Gap 2 L, BUN 56 H, Creatinine 2.53 H, Estim Creat Clear Calc 22.68, Est GFR (MDRD) Af Amer 33 L, Est GFR (MDRD) Non-Af 27 L, BUN/Creatinine Ratio 22.1 H , Glucose 85, Calcium 7.8 L 08/05/21 05:44: WBC 4.1 L, RBC 3.05 L, Hgb 9.2 L, Hct 28.7 L, MCV 94.1 H, MCH 30.2, MCHC 32.1, RDW Std Deviation 50.6 H, RDW Coeff of Vita 14.5, Plt Count 143 L, MPV 9.6, Immature Gran % (Auto) 0.200, Neut % (Auto) 75.0 H, Lymph % (Auto) 11.7 L, [place] % (Auto) 7.1, Eos % (Auto) 5.8 H, Baso % (Auto) 0.2, Absolute Neuts (auto) 3.1, Absolute Lymphs (auto) 0.48 L, Nucleated RBC % 0, Differential Comment SCANNED, Diff Path Review May foll Micro: Microbiology 07/27/21 19:00 Blood Culture (Wb) - Venous Blood Culture - Final No growth in 5 days. 07/27/21 18:50 Blood Culture (Wb) - Venous Blood Culture - Final No growth in 5 days. 07/27/21 20:30 Interface Orders Urine Culture - Final Culture exhibits no growth. 07/28/21 04:20 Sputum, Expectorated/Coughed Gram Stain - Final 07/28/21 04:20 Sputum, Expectorated/Coughed Respiratory Culture - Final Corynebacterium striatum 07/27/21 22:50 Urine Catheter - Navarrete Streptococcus pneumoniae Antigen (M - Final Physical Exam Narrative Const alert, oriented x3 and mild respiratory distress General Appearance: cooperative Nutritional Appearance: cachectic HEENT normocephalic Mouth: dry mucous membranes Eyes PERRL, EOMs intact bilaterally and conjunctivae normal Neck supple and no JVD Neck Narrative: Trach in place, capped Resp normal respiratory effort, no retractions and no use of accessory muscles, tachypneic Auscultation: diminished lung sounds; Negative for crackles, rales, rhonchi or wheezes Cardio regular rate, regular rhythm, S1 normal heart sound, S2 normal heart sound and no murmurs GI soft to palpation, non-tender and non-distended; Negative for hepatosplenomegaly GI Narrative: PEG tube in place Extremity no clubbing, cyanosis or edema Skin no rashes or lesions noted Neuro no focal motor deficits and no sensory deficits noted Psych Mood & Affect: depressed and apathetic Assessment & Plan Assessment/Plan (1) Acute on chronic respiratory failure with hypoxia and hypercapnia: (2) HCAP (healthcare-associated pneumonia): (3) Dysphagia: PLAN: 1. Acute combined on chronic hypoxic respiratory failure due to aspiration pneumonia secondary to dysphagia/CHARLY -Recent prolonged hospitalization with empyema leading to tracheostomy tube and PEG -Continues to refuse AVAPS, though we were able to get him on the BiPAP this morning with his respiratory distress, will obtain a chest x-ray -Given his lack of compliance with interventions, will discuss the situation with his mother but ultimately will likely have to send him back to the senior living and they will just have to deal with periodic episodes of hypoxia -Continue antimicrobials for 7 days total, this will be completed on 08/05/2021 -Continue with his baseline steroids ?We will discontinue his Lasix given his CHARLY start him on some fluids gently -Continue aerosols -Would recommend pulmonary follow-up upon discharge for evaluation and direction on decannulation if possible ?Speech therapy is recommending a modified diet with pur?ed nectar thick liquid ?Pulmonology has signed off ?His CHARLY continues to worsen, and now he has some hypernatremia with hyperchloremia therefore we will consult nephrology for evaluation and transition him to half-normal saline 2. COPD not in exacerbation ?Stable ?Continue with inhalers and chronic steroids 3. Depression/anxiety ?He continues to appear apathetic and depressed ?We will continue with his BuSpar and Remeron but will also add Zoloft Had a 30-minute discussion with both his mother and his brother about advanced care planning options. DVT: Lovenox Charges/Coding Visit Charges Inpatient E&M: 66779 Subs Hosp L2 Procedures Hospitalists Procedures: 13136 Advncd Care Plan 30 Min
--- NOTE | 2021-08-05 13:45 | RAD_ITS ---
History: Now on BiPAP increased O2 requirement, SOB EXAMINATION/TECHNIQUE: XR Chest 1 View: Portable COMPARISON: July 19 822.2 FINDINGS: LINES/DEVICES: The tracheostomy tube remains in place. LUNGS: Small bilateral pleural effusions appear increased in size. Residual airspace opacification within both lower lobes of the lung. Improving infiltrate or edema within the left upper lobe. No pneumothorax. MEDIASTINUM AND CARDIOVASCULAR STRUCTURES: Cardiac silhouette not enlarged. Central airways and mediastinal contour are unremarkable. BONES AND SOFT TISSUES: Unremarkable. RAD/Chest 1 View (Portable) IMPRESSION: Improving left upper lobe infiltrate or edema. Persistent bibasilar airspace opacification. Small bilateral pleural effusions which have increased in size. at 1704 Reported and signed by: Eugene Perkins MD Electronically Signed: Eugene Perkins MD at 17:02 EST ,
[2021-08-05] MEDS: Jevity 1.5. 1,000 ML Bottle 250 ML GT ×2 (13:59→17:35)
[2021-08-05] MEDS: 0.45% Normal Saline 1,000 ML 75 ML IV (13:59)
--- NOTE | 2021-08-05 15:56 | CPS ---
FIO2 decreased to 60%. Saturation 100% nurse aware of change
[2021-08-05] MEDS: guaiFENesin 10 ML UDC (200MG/10ML) 20 ML PO (17:35)
[2021-08-05] MEDS: Ondansetron 4 MG/2 ML Vial IV (17:50)
--- NOTE | 2021-08-05 20:20 | CPS ---
RT was able to suction and get pt to cough up copious amounts of yellow thick secretions. Fio2 was decreased to 45% on AVAPS
[2021-08-06] VITALS (15 sets, daily range): BP systolic 117–130; BP diastolic 64–73; PULSE 64–74; RESP 12–36; TEMP 36.4–36.6; O2SAT 89–99
[2021-08-06] MEDS: MELATONIN 3 MG TABLET PO (00:05)
[2021-08-06] MEDS: 0.45% Normal Saline 1,000 ML 75 ML IV (03:46)
[2021-08-06 06:33] LABS: Absolute Lymphocyte Count 0.51 X10^3/uL (0.83-4.51); Absolute Neutrophil Count 3.4 X10^3/uL (2.0-7.7); Basophil# 0.01 X10^3/uL; Basophil% 0.2 % (0-1); Eosinophil# 0.23 X10^3/uL; Eosinophils% 5.1 % (0-5); Hematocrit 27.9 % (40-54); Hemoglobin 8.7 g/dL (13.0-16.5); Lymphocyte # 0.51 X10^3/ul (0.83-4.51); Lymphocyte % 11.4 % (19-41); Mean Corp Hgb Conc 31.2 g/dL (32-36); Mean Corpuscular Hgb 30.5 pg (27.0-32.0); Mean Corpuscular Volume 97.9 fL (80-94); Mean Platelet Vol. 9.6 fl (6.2-12.0); Monocyte# 0.28 X10^3/uL; Monocyte% 6.3 % (0-10); NRBC Flagged by Analyzer 0 % (0-5); Neutrophil # 3.43 X10^3/uL (2.7-7.7); Neutrophil % 76.6 % (47-70); POSITIVE DIFFERENTIAL YES; Platelet Count 144 K/mm3 (150-450); RBC Distribution Width CV 14.4 % (11.6-14.6); Red Blood Count 2.85 M/mm3 (4.6-6.2); White Blood Count 4.5 K/mm3 (4.4-11.0)
[2021-08-06 06:46] LABS: Differential Indicated SCAN CRITERIA MET
[2021-08-06 06:53] LABS: Anion Gap 3 (5-15); BUN 60 mg/dL (7-18); BUN/Creat Ratio 22.8 RATIO (10-20); Calcium,Total 7.8 mg/dL (8.5-10.1); Chloride 108 mmol/L (98-107); Creatinine, Serum 2.63 mg/dL (0.70-1.30); EST Glomerular Filtration Rate 26 mL/min (>60); Est Glom Filt Rate - Afr Amer 31 mL/min (>60); Estimated Creatinine Clearance 21.67 ml/min; Glucose 82 mg/dL (74-106); Potassium 3.6 mmol/L (3.5-5.1); Sodium Level 146 mmol/L (136-145)
--- NOTE | 2021-08-06 07:15 | US_ITS ---
STUDY: RENAL ULTRASOUND - COMPLETE REASON FOR EXAM: Male, 70 years old. Abnormal BUN/creatinine TECHNIQUE: Ultrasound evaluation of the kidneys was performed with real-time and static bliss-scale imaging. COMPARISON: None. FINDINGS: Both kidneys demonstrate echogenic cortices suspicious for medical renal disease, most common causes diabetes. RIGHT KIDNEY: Normal location of the right kidney, which is normal in size. The right kidney measures 12.4 x 6.5 x 6 cm. There is a normal cortex of the right kidney. The renal cortex measures 1.8 cm. There is a simple 3.7 cm cyst. There are no right renal calculi. There is no right hydronephrosis. DISTAL RIGHT URETER: There is non-visualization of the distal right ureter. There is no demonstrated right ureterovesical junction calculus. There is a visualized right ureteral jet. LEFT KIDNEY: Normal location of the left kidney, which is normal in size. The left kidney measures 13.2 x 4.8 x 6.3 cm. There is a normal cortex of the left kidney. The renal cortex measures 1.8 cm. There is a simple 4.5 cm cyst. There are no left renal calculi. There is no left hydronephrosis. DISTAL LEFT URETER: There is non-visualization of the distal left ureter. There is no demonstrated left ureterovesical junction calculus. There is a visualized left ureteral jet. AORTA: There is no elongation or tortuosity of the abdominal aorta. I.V.C.: The IVC is patent. BLADDER: The bladder is incompletely distended Incidental note is made of a left pleural effusion and mild ascites US/Kidney and Bladder IMPRESSION: Echogenic kidneys suggest medical renal disease. No obstructive uropathy or suspicious solid renal lesion, bilateral simple renal cysts. No specific follow-up needed Left pleural effusion Mild ascites Electronically Signed: Mario Alberto Jacques MD at 16:54 EST ,
--- NOTE | 2021-08-06 07:17 | PCM.PN.BLA ---
Progress Note Nephrology Brief Note. Full consultation report to follow. Chart and labs reviewed. Suspect patient has ischemic ATN from volume depletion. Will check recheck UA, urine indices and renal US. Agree with IVF. No current need for kidney replacement therapy as renal function is stable in the last 24 hrs. Bro Vogel MD
--- NOTE | 2021-08-06 08:40 | PN.HOSP_ITS ---
Subjective Subjective Patient is confused and disoriented. He thinks today's last day of the year 29 June. Does not remember month and year. He also refused for ultrasound therefore sent back from radiology. Follow-up for acute hypoxic respiratory failure. Patient remains on 45 % FiO2 BiPAP. Objective Data Objective Data Vital Signs: Vital Signs Temp Pulse Resp BP Pulse Ox 97.5 F L 69 36 H 130/70 H 96 08/06/21 03:46 08/06/21 07:00 08/06/21 04:12 08/06/21 03:46 08/06/21 04:12 Oxygen Flow Rate (L/min) 45 Oxygen Delivery Method Bi-pap Weight: 127 lb 6.835 oz Body Mass Index (BMI) 18.6 Intake & Output: Intake and Output for Last 24 Hours 08/04/21 08/05/21 08/06/21 23:59 23:59 23:59 Intake Total 2687.25 / 2737.25 1698.25 / 1698.25 1000 / 1000 Output Total 575 / 775 850 / 850 400 / 400 Balance 2112.25 / 1962.25 848.25 / 848.25 600 / 600 Medical Nutrition Assessment Dietitian: Malnutrition Criteria Met Start: 07/29/21 08:16 Freq: Status: Active Protocol: Document 08/04/21 12:13 ELLEN (Rec: 08/04/21 12:13 ELLEN [id number]) Nutrition Malnutrition Evidence of Malnutrition Exists Yes Malnutrition (moderate): Chronic Evidenced By Suboptimal Energy Intake ( Moderate),Physical Changes ( Moderate) Intake Problem Inadequate Oral Intake Etiology related to dysphagia, pt dislike of pureed food and nectar-thick liquids Signs/Symptoms as evidenced by need for PEG TF support and PO meeting less than 50% estimated nutrition needs Status Active Problem Clinical Problem Chronic Disease or Condition Related Malnutrition Etiology Severe protein-calorie malnutrition in the context of chronic disease related to difficulty swallowing, increased energy expenditure and inadequate oral intake Signs/Symptoms as evidenced by PO meeting less than 50% estimated nutrition needs, PEG TF support, BMI 19.7, +NFPA with obvious signs of muscle/fat wasting in the face, orbital and temporal regions Status Active Problem Recommendation Dietitian Recommendations/Changes 1) Continue Regular diet- texture/consistency modifications per MAIL CARRIERS SUPERVISOR. Will add magic cup/ensure pudding w / meals for additional calories/protein if consumed. 2) Will continue Jevity 1.5 250mL bolus TID via PEG if PO intake at meals is <50%. 200mL H2O flush w/ each bolus. As recommended, enteral nutrition would provide 1125 calories, 67 g protein, and 1398mL total fluid/day, meeting ~66% of pt 's estimated calorie and 90% of estimated protein needs. 3) Adjust enteral nutrition if wt loss occurs and/or if PO intake remains insignificant. 4) Continue daily wts. Lab / Micro Data Result Diagrams: 08/06/21 06:02 08/06/21 06:02 Labs: Laboratory Results - last 24 hr 08/06/21 06:02: WBC 4.5, RBC 2.85 L, Hgb 8.7 L, Hct 27.9 L, MCV 97.9 H, MCH 30.5, MCHC 31.2 L, RDW Std Deviation 51.0 H, RDW Coeff of Vita 14.4, Plt Count 144 L, MPV 9.6, Immature Gran % (Auto) 0.400, Neut % (Auto) 76.6 H, Lymph % (Auto) 11.4 L, [place] % (Auto) 6.3, Eos % (Auto) 5.1 H, Baso % (Auto) 0.2, Absolute Neuts (auto) 3.4, Absolute Lymphs (auto) 0.51 L, Nucleated RBC % 0 08/06/21 06:02: Sodium 146 H, Potassium 3.6, Chloride 108 H, Carbon Dioxide 35.0 H, Anion Gap 3 L, BUN 60 H, Creatinine 2.63 H, Estim Creat Clear Calc 21.67, Est GFR (MDRD) Af Amer 31 L, Est GFR (MDRD) Non-Af 26 L, BUN/Creatinine Ratio 22.8 H , Glucose 82, Calcium 7.8 L Micro: Microbiology 07/27/21 19:00 Blood Culture (Wb) - Venous Blood Culture - Final No growth in 5 days. 07/27/21 18:50 Blood Culture (Wb) - Venous Blood Culture - Final No growth in 5 days. 07/27/21 20:30 Interface Orders Urine Culture - Final Culture exhibits no growth. 07/28/21 04:20 Sputum, Expectorated/Coughed Gram Stain - Final 07/28/21 04:20 Sputum, Expectorated/Coughed Respiratory Culture - Final Corynebacterium striatum 07/27/21 22:50 Urine Catheter - Navarrete Streptococcus pneumoniae Antigen (M - Final Radiography Diagnostic Testing: Radiology Impression Chest X-Ray 08/05/21 13:45 IMPRESSION: Improving left upper lobe infiltrate or edema. Persistent bibasilar airspace opacification. Small bilateral pleural effusions which have increased in size. at 1704 Reported and signed by: Eugene Perkins MD Electronically Signed: Eugene Perkins MD at 17:02 EST , Physical Exam Narrative General: Confused, disoriented, intermittent uncooperative. Severe protein calorie malnutrition HEENT: Atraumatic, PERRLA, EOMI, Normocephalic Oral: BiPAP mask. Neck: Tracheostomy. Supple, No JVD Lungs: Air entry diminished in bilateral lung bases. On BiPAP Cardiovascular: Sinus rhythm, Normal S1, Normal S2, No murmurs Abdomen: Has PEG tube bowel Sounds Present, Soft, Non Tender, Non-Distended : No renal angle tenderness. No suprapubic tenderness. Extremities: No edema, Capillary Refill Less than 3 Seconds Skin: No rashes, No breakdown Musculoskeletal: Moderate atrophy of muscles of extremity with loss of subcutaneous fat. No Tenderness to Palpation of Joints or Extremities Neurological: Cranial nerves II-XII grossly intact, DTR 2+/4 Psych/Mental Status: Flat affect Assessment & Plan Assessment/Plan (1) Acute on chronic respiratory failure with hypoxia and hypercapnia: (2) HCAP (healthcare-associated pneumonia): (3) Dysphagia: PLAN: 1. Acute hypercarbic and hypoxic combined on chronic hypoxic respiratory failure due to aspiration pneumonia most probably due to dysphagia: Patient had prolonged hospitalization with empyema leading to tracheostomy and PEG tube. Patient continues to refuse AVAPS but currently on BiPAP and intermittent nasal cannula. Patient not able to be [facility] to [facility] because of recurrent episodes of severe hypoxia which required BiPAP. Patient completed 7 days of antimicrobial on 08/05/2021. On baseline steroid. Diuretic discontinued given acute kidney injury. Helicopter Repairer has signed off. Seen by speech therapist had modified barium swallow. Patient has PEG tube. Patient has moderate oropharyngeal dysphagia. Speech therapist recommended pur?ed texture, nectar thick liquid. 2. Acute kidney injury, hypernatremia and hyperchloremia, chronic respiratory acidosis with high bicarb 3. COPD not in exacerbation ?Continue with inhalers and chronic steroids 4. Severe protein calorie malnutrition: Being followed by imaging analyst. 5. Depression/anxiety with intermittent confusion, delirium: Patient apathetic and depressed. On BuSpar and Remeron. On Zoloft. 6. VT prophylaxis: Lovenox DVT was discontinued and instead started on heparin 500 subcutaneous twice daily. Charges/Coding Visit Charges Inpatient E&M: 61878 Subs Hosp L2
[2021-08-06 08:44] LABS: Mucous, Urine 0 SEEN /hpf (<or=2+)
[2021-08-06 08:57] LABS: Color, Urine Yellow (Yellow); Glucose, Dipstick Normal (Normal); Ketone-Dipstick 5 mg/dl (Negative); Leukocyte Esterase-Dipstick 500 /ul (Negative); Nitrite-Dipstick Negative (Negative); Occult Blood-Urine 150 /ul (Negative); Protein-Dipstick 30 mg/dl (Negative); Urine Bilirubin Dipstick Negative (Negative); Urine Clarity Sl. Cloudy (Clear); Urine Urobilinogen Normal (Normal)
[2021-08-06 09:04] LABS: Bacteria 1+ /hpf (None Seen); Red Blood Cells-Urine 10-25 SEEN /hpf (0-5); Squamous Epithelial Cells - UA 0-5 SEEN /hpf (0-5); White Blood Cells 25-50 SEEN /hpf (0-5); Yeast-Urine 2+ /hpf (None Seen)
[2021-08-06 09:05] LABS: Urine Sodium 46 mmol/L (Not Establ.)
[2021-08-06] MEDS: Famotidine 200 MG/20 ML MDV 20 MG in 0.9% Normal Saline (Pres. free 8 ML 300 MG IV (09:28)
[2021-08-06] MEDS: Jevity 1.5. 1,000 ML Bottle 250 ML GT ×2 (09:30→17:51)
[2021-08-06 15:05] LABS: Pathologist Review Reviewed
--- NOTE | 2021-08-06 15:52 | PCM.CONS.R ---
Assessment & Plan Assessment/Plan (1) Acute kidney injury: (2) Acute on chronic respiratory failure with hypoxia and hypercapnia: (3) HCAP (healthcare-associated pneumonia): PLAN: Nonoliguric, hypovolemic CHARLY likely prerenal, ATN from volume depletion. Patient has normal baseline creatinine. Today creatinine is 2.63 mg/dL. Blood pressures are acceptable, not on any antihypertensives. He is not on any diuretics. Recommend to continue with IV fluids for volume expansion. Reviewed last CXR which showed improvement. At this time there is no acute indication for GRAPHIC DESIGN INTERN, potassium and acid-base acceptable (Patient has chronic respiratory acidosis with high bicarb), and patient appears to be hypovolemic on exam. He is nonoliguric. Renal ultrasound has been ordered, initially patient declined, US is now in process. Urinalysis showed 30 of protein, negative for RBC. Urine sodium 46. Hypernatremia, possibly from lack of free water, also on NS. Encouraged patient to increase solute and oral intake. Will change IVF to D5W. Further orders forthcoming as hospitalization evolves. Thank you for letting us participate in the care of Mr. Gilliam. HPI Consult Data Date of Consult: 08/06/21 HPI Narrative HPI Narrative: MAGO GILLIAM, is a 70 M with past medical history significant for chronic COPD with chronic hypoxic respiratory failure on O2 4 to 5 L per nasal cannula has tracheostomy, on chronic steroids, history of A. fib, and severe protein caloric malnutrition who was admitted to the hospital on 07/27/2021 for pneumonia and acute on chronic respiratory failure with hypoxia and hypercapnia. The patient was initially admitted to ICU. He has since been moved out of ICU. We were consulted for acute kidney injury. Patient is alert to name, confused to recent events, information gathered from the chart. Patient has normal baseline creatinine, creatinine on admission 0.75 mg/dL. Creatinine remained less than 1 mg/dL up until August 03. On August 03 creatinine 1.53 mg/dL, August 05 creatinine 2.53 mg/dL and today his creatinine is 2.63 mg/dL. [facility] Medical History (Updated 08/06/21 @ 15:58 by PATRICK León) Alcohol abuse Atrial fibrillation (03/19/21) COPD (chronic obstructive pulmonary disease) Former smoker Vision loss of left eye Vision loss of right eye Home Medications albuterol sulfate 90 mcg/actuation aerosol inhaler 2 puff INHALATION Q4H PRN #8.5 g 05/23/20 [Rx Last Taken 03/18/21] azithromycin 250 mg PO DAILY 07/27/21 [History Last Taken Unknown] buspirone 15 mg PO TID PRN 07/27/21 [History Last Taken Unknown] dexamethasone [Decadron] 4 mg PO DAILY 07/27/21 [History Last Taken Unknown] enoxaparin 40 mg SUBCUT DAILY 07/27/21 [History Last Taken Unknown] famotidine 20 mg PO BID 07/27/21 [History Last Taken Unknown] furosemide 20 mg PO DAILY 07/27/21 [History Last Taken Unknown] guaifenesin 200 mg PO Q4H PRN 07/27/21 [History Last Taken Unknown] loperamide 2 mg PO Q6H PRN 07/27/21 [History Last Taken Unknown] magnesium oxide 400 mg PO DAILY 07/27/21 [History Last Taken Unknown] melatonin 3 mg PO DAILY 07/27/21 [History Last Taken Unknown] mirtazapine [Remeron] 7.5 mg PO DAILY 07/27/21 [History Last Taken Unknown] prednisone 10 mg PO DAILY 07/27/21 [History Last Taken Unknown] Allergy/AdvReac Type Severity Reaction Status Date / Time No Known Allergies Allergy Verified 07/27/21 18:52 Family History (Updated 07/27/21 @ 20:[address] Nancy Tafoya MD) Father BPH (benign prostatic hyperplasia) Grandfather BPH (benign prostatic hyperplasia) Surgical History (Updated 07/27/21 @ 20:[address] Nancy Tafoya MD) H/O nasal septoplasty History of suburethral sling procedure History of thoracic surgery S/P TURP Social History (Updated 07/27/21 @ 20:[address] Nancy Tafoya MD) housing: retirement Smoking Status: Former smoker quit date: 03/30/20 pack-years: 50 Tobacco: How many years used: 50 how long ago did patient quit smoking: Smoked since 01/28/1967m 1 ppd until quit. alcohol intake: former substance use type: does not use Physical Exam Narrative Const: Alert and oriented to person and place. NAD HEENT: Oral mucosa dry, lips dry Neck: Tracheostomy Cardio: S1-S2, rate controlled Respiratory: Lung sounds clear anteriorly and posteriorly, no wheezes rhonchi rales GI: Soft, nontender, positive bowel sounds Extremities: No edema Medical Records Data Medical Nutrition Assessment Dietitian: Malnutrition Criteria Met Start: 07/29/21 08:16 Freq: Status: Active Protocol: Document 08/04/21 12:13 [facility] (Rec: 08/04/21 12:13 [facility] [id number]) Nutrition Malnutrition Evidence of Malnutrition Exists Yes Malnutrition (moderate): Chronic Evidenced By Suboptimal Energy Intake ( Moderate),Physical Changes ( Moderate) Intake Problem Inadequate Oral Intake Etiology related to dysphagia, pt dislike of pureed food and nectar-thick liquids Signs/Symptoms as evidenced by need for PEG TF support and PO meeting less than 50% estimated nutrition needs Status Active Problem Clinical Problem Chronic Disease or Condition Related Malnutrition Etiology Severe protein-calorie malnutrition in the context of chronic disease related to difficulty swallowing, increased energy expenditure and inadequate oral intake Signs/Symptoms as evidenced by PO meeting less than 50% estimated nutrition needs, PEG TF support, BMI 19.7, +NFPA with obvious signs of muscle/fat wasting in the face, orbital and temporal regions Status Active Problem Recommendation Dietitian Recommendations/Changes 1) Continue Regular diet- texture/consistency modifications per WORKFORCE MANAGEMENT COORDINATOR. Will add magic cup/ensure pudding w / meals for additional calories/protein if consumed. 2) Will continue Jevity 1.5 250mL bolus TID via PEG if PO intake at meals is <50%. 200mL H2O flush w/ each bolus. As recommended, enteral nutrition would provide 1125 calories, 67 g protein, and 1398mL total fluid/day, meeting ~66% of pt 's estimated calorie and 90% of estimated protein needs. 3) Adjust enteral nutrition if wt loss occurs and/or if PO intake remains insignificant. 4) Continue daily wts. Lab / Micro Data Result Diagrams: 08/06/21 06:02 08/06/21 06:02 Labs: Laboratory Results - last 24 hr 08/05/21 05:44: Diff Path Review Reviewed 08/06/21 06:02: WBC 4.5, RBC 2.85 L, Hgb 8.7 L, Hct 27.9 L, MCV 97.9 H, MCH 30.5, MCHC 31.2 L, RDW Std Deviation 51.0 H, RDW Coeff of Vita 14.4, Plt Count 144 L, MPV 9.6, Immature Gran % (Auto) 0.400, Neut % (Auto) 76.6 H, Lymph % (Auto) 11.4 L, [place] % (Auto) 6.3, Eos % (Auto) 5.1 H, Baso % (Auto) 0.2, Absolute Neuts (auto) 3.4, Absolute Lymphs (auto) 0.51 L, Nucleated RBC % 0 08/06/21 06:02: Sodium 146 H, Potassium 3.6, Chloride 108 H, Carbon Dioxide 35.0 H, Anion Gap 3 L, BUN 60 H, Creatinine 2.63 H, Estim Creat Clear Calc 21.67, Est GFR (MDRD) Af Amer 31 L, Est GFR (MDRD) Non-Af 26 L, BUN/Creatinine Ratio 22.8 H, Glucose 82, Calcium 7.8 L 08/06/21 08:25: Ur Random Sodium 46, Urine Creatinine 84.40 08/06/21 08:25: Urine Color Yellow, Urine Clarity Sl. Cloudy, Urine pH 5.0, Ur Specific [place] 1.020, Urine Protein 30 H, Urine Glucose (UA) Normal, Urine Ketones 5 H, Urine Occult Blood 150 H, Urine Nitrite Negative, Urine Bilirubin Negative, Urine Urobilinogen Normal, Ur Leukocyte Esterase 500 H, Urine RBC 10-25 SEEN, Urine WBC 25-50 SEEN, Ur Squamous Epith Cells 0-5 SEEN, Urine Bacteria 1+, Urine Mucus 0 SEEN, Urine Yeast 2+ Radiology Impression Chest X-Ray 08/05/21 13:45 IMPRESSION: Improving left upper lobe infiltrate or edema. Persistent bibasilar airspace opacification. Small bilateral pleural effusions which have increased in size. at 1704 Reported and signed by: Eugene Perkins MD Electronically Signed: Eugene Perkins MD at 17:02 EST ,
--- NOTE | 2021-08-06 20:53 | NURSING ---
Pt refusing his evening robitussin and subq heparin. This nurse explained the rationale for the meds and the risks of not taking them. Pt continues to refuse.
[2021-08-07] VITALS (13 sets, daily range): BP systolic 120–153; BP diastolic 68–78; PULSE 60–75; RESP 12–25; TEMP 36.6; O2SAT 93–100
--- NOTE | 2021-08-07 01:07 | NURSING ---
Pt oxygen sat's consistently dropping to 70's. Pt wearing nasal cannula, however rhonchi audible. Offered suction and bipap to which pt refused. Discussed concern regarding pt receiving proper oxygenation. Pt agreeable at this time to bipap. Placed on bipap now.
[2021-08-07 06:02] LABS: Absolute Lymphocyte Count 0.69 X10^3/uL (0.83-4.51); Absolute Neutrophil Count 3.6 X10^3/uL (2.0-7.7); Basophil# 0.01 X10^3/uL; Basophil% 0.2 % (0-1); Eosinophil# 0.24 X10^3/uL; Eosinophils% 4.9 % (0-5); Hematocrit 27.1 % (40-54); Hemoglobin 8.6 g/dL (13.0-16.5); Lymphocyte # 0.69 X10^3/ul (0.83-4.51); Lymphocyte % 14.2 % (19-41); Mean Corp Hgb Conc 31.7 g/dL (32-36); Mean Corpuscular Hgb 30.4 pg (27.0-32.0); Mean Corpuscular Volume 95.8 fL (80-94); Mean Platelet Vol. 9.3 fl (6.2-12.0); Monocyte# 0.34 X10^3/uL; NRBC Flagged by Analyzer 0 % (0-5); Neutrophil # 3.58 X10^3/uL (2.7-7.7); Neutrophil % 73.5 % (47-70); Platelet Count 146 K/mm3 (150-450); RBC Distribution Width CV 13.9 % (11.6-14.6); RBC Distribution Width SD 48.7 fl (35.1-43.9); Red Blood Count 2.83 M/mm3 (4.6-6.2); White Blood Count 4.9 K/mm3 (4.4-11.0)
[2021-08-07 06:33] LABS: Anion Gap 3 (5-15); BUN 50 mg/dL (7-18); Chloride 106 mmol/L (98-107); Creatinine, Serum 2.08 mg/dL (0.70-1.30); EST Glomerular Filtration Rate 34 mL/min (>60); Est Glom Filt Rate - Afr Amer 41 mL/min (>60); Estimated Creatinine Clearance 27.31 ml/min; Glucose 98 mg/dL (74-106); Potassium 3.3 mmol/L (3.5-5.1); Sodium Level 144 mmol/L (136-145)
--- NOTE | 2021-08-07 08:19 | PN.HOSP_ITS ---
Subjective Subjective Patient on BiPAP in the morning. 45% FiO2. Change to oxygen 4 to 5 L of oxygen. Discussed with the director of casework department. Objective Data Objective Data Vital Signs: Vital Signs Temp Pulse Resp BP Pulse Ox 97.9 F 60 14 120/68 99 08/07/21 02:30 08/07/21 07:34 08/07/21 07:34 08/07/21 02:30 08/07/21 07:34 Oxygen Flow Rate (L/min) 5 Oxygen Delivery Method Bi-pap Weight: 126 lb 15.78 oz Body Mass Index (BMI) 18.6 Intake & Output: Intake and Output for Last 24 Hours 08/05/21 08/06/21 08/07/21 23:59 23:59 23:59 Intake Total 1698.25 / 1698.25 3365 / 3365 991.25 / 991.25 Output Total 850 / 850 1025 / 1025 625 / 625 Balance 848.25 / 848.25 2340 / 2340 366.25 / 366.25 Medical Nutrition Assessment Dietitian: Malnutrition Criteria Met Start: 07/29/21 08:16 Freq: Status: Active Protocol: Document 08/04/21 12:13 [facility] (Rec: 08/04/21 12:13 [facility] [id number]) Nutrition Malnutrition Evidence of Malnutrition Exists Yes Malnutrition (moderate): Chronic Evidenced By Suboptimal Energy Intake ( Moderate),Physical Changes ( Moderate) Intake Problem Inadequate Oral Intake Etiology related to dysphagia, pt dislike of pureed food and nectar-thick liquids Signs/Symptoms as evidenced by need for PEG TF support and PO meeting less than 50% estimated nutrition needs Status Active Problem Clinical Problem Chronic Disease or Condition Related Malnutrition Etiology Severe protein-calorie malnutrition in the context of chronic disease related to difficulty swallowing, increased energy expenditure and inadequate oral intake Signs/Symptoms as evidenced by PO meeting less than 50% estimated nutrition needs, PEG TF support, BMI 19.7, +NFPA with obvious signs of muscle/fat wasting in the face, orbital and temporal regions Status Active Problem Recommendation Dietitian Recommendations/Changes 1) Continue Regular diet- texture/consistency modifications per DIRECTOR DAY CARE CENTER. Will add magic cup/ensure pudding w / meals for additional calories/protein if consumed. 2) Will continue Jevity 1.5 250mL bolus TID via PEG if PO intake at meals is <50%. 200mL H2O flush w/ each bolus. As recommended, enteral nutrition would provide 1125 calories, 67 g protein, and 1398mL total fluid/day, meeting ~66% of pt 's estimated calorie and 90% of estimated protein needs. 3) Adjust enteral nutrition if wt loss occurs and/or if PO intake remains insignificant. 4) Continue daily wts. Lab / Micro Data Result Diagrams: 08/07/21 05:26 08/07/21 05:26 Labs: Laboratory Results - last 24 hr 08/05/21 05:44: Diff Path Review Reviewed 08/06/21 08:25: Ur Random Sodium 46, Urine Creatinine 84.40 08/06/21 08:25: Urine Color Yellow, Urine Clarity Sl. Cloudy, Urine pH 5.0, Ur Specific [place] 1.020, Urine Protein 30 H, Urine Glucose (UA) Normal, Urine Ketones 5 H, Urine Occult Blood 150 H, Urine Nitrite Negative, Urine Bilirubin Negative, Urine Urobilinogen Normal, Ur Leukocyte Esterase 500 H, Urine RBC 10- 25 SEEN, Urine WBC 25-50 SEEN, Ur Squamous Epith Cells 0-5 SEEN, Urine Bacteria 1+, Urine Mucus 0 SEEN, Urine Yeast 2+ 08/07/21 05:26: WBC 4.9, RBC 2.83 L, Hgb 8.6 L, Hct 27.1 L, MCV 95.8 H, MCH 30.4, MCHC 31.7 L, RDW Std Deviation 48.7 H, RDW Coeff of Vita 13.9, Plt Count 146 L, MPV 9.3, Immature Gran % (Auto) 0.200, Neut % (Auto) 73.5 H, Lymph % ( Auto) 14.2 L, [place] % (Auto) 7.0, Eos % (Auto) 4.9, Baso % (Auto) 0.2, Absolute Neuts (auto) 3.6, Absolute Lymphs (auto) 0.69 L, Nucleated RBC % 0 08/07/21 05:26: Sodium 144, Potassium 3.3 L, Chloride 106, Carbon Dioxide 35.0 H , Anion Gap 3 L, BUN 50 H, Creatinine 2.08 H, Estim Creat Clear Calc 27.31, Est GFR (MDRD) Af Amer 41 L, Est GFR (MDRD) Non-Af 34 L, BUN/Creatinine Ratio 24.0 H , Glucose 98, Calcium 8.0 L Micro: Microbiology 07/27/21 19:00 Blood Culture (Wb) - Venous Blood Culture - Final No growth in 5 days. 07/27/21 18:50 Blood Culture (Wb) - Venous Blood Culture - Final No growth in 5 days. 07/27/21 20:30 Interface Orders Urine Culture - Final Culture exhibits no growth. 07/28/21 04:20 Sputum, Expectorated/Coughed Gram Stain - Final 07/28/21 04:20 Sputum, Expectorated/Coughed Respiratory Culture - Final Corynebacterium striatum 07/27/21 22:50 Urine Catheter - Navarrete Streptococcus pneumoniae Antigen (M - Final Radiography Diagnostic Testing: Radiology Impression Renal Ultrasound 08/06/21 07:15 IMPRESSION: Echogenic kidneys suggest medical renal disease. No obstructive uropathy or suspicious solid renal lesion, bilateral simple renal cysts. No specific follow-up needed Left pleural effusion Mild ascites Electronically Signed: Mario Alberto Jacques MD at 16:54 EST Reading Location ID and State: [facility] / [place] , Service support , Physical Exam Narrative General: Intermittent confusion and disorientation. Mild lethargy. Severe protein calorie malnutrition HEENT: Atraumatic, PERRLA, EOMI, Normocephalic Oral: BiPAP during naps and at night. Neck: Tracheostomy. Supple, No JVD Lungs: Air entry diminished in bilateral lung bases. On BiPAP Cardiovascular: Sinus rhythm, Normal S1, Normal S2, No murmurs Abdomen: Has PEG tube bowel Sounds Present, Soft, Non Tender, Non-Distended : No renal angle tenderness. No suprapubic tenderness. Extremities: No edema, Capillary Refill Less than 3 Seconds Skin: No rashes, No breakdown Musculoskeletal: Moderate atrophy of muscles of extremity with loss of subcutaneous fat. No Tenderness to Palpation of Joints or Extremities Neurological: Cranial nerves II-XII grossly intact, DTR 2+/4 Psych/Mental Status: Flat affect Const alert, oriented x3 and no apparent distress Constitutional Narrative: Thin older white male sitting up in bed, appears much older than stated age, appears mildly tachypneic but nontoxic General Appearance: cooperative Orientation / Consciousness: lethargic Exam Limitations: no limitations Nutritional Appearance: cachectic and thin HEENT normocephalic, head/scalp atraumatic and moist oral mucous membranes Eyes PERRL, EOMs intact bilaterally and conjunctivae normal Neck supple and no JVD Neck Narrative: Trach in place, capped Resp normal respiratory effort, no retractions and no use of accessory muscles Resp Narrative: Mild tachypnea with scattered rhonchi in right base and diffusely diminished-Rhonchi do improve with cough Auscultation: diminished lung sounds; Negative for crackles, rales, rhonchi or wheezes Cardio regular rate, regular rhythm, S1 normal heart sound, S2 normal heart sound, no murmurs, no rub, no gallops, no clicks and no JVD GI normal to inspection, nondistended, normoactive bowel sounds, soft to palpation, non-tender and non-distended; Negative for hepatosplenomegaly GI Narrative: PEG tube in place Extremity no clubbing, cyanosis or edema Extremity Narrative: Decreased lean muscle mass Skin no rashes or lesions noted Skin Narrative: Right IJ in place-dressing is clean and dry Neuro oriented x3, CN's II-XII intact bilaterally, moves all extremities, no focal motor deficits and no sensory deficits noted Sensorium / Orientation: awake and alert Speech: speech normal Psych affect normal Psych Narrative: Affect is extremely flat and patient is limitedly interactive Mood & Affect: depressed and apathetic Assessment & Plan Assessment/Plan (1) Acute on chronic respiratory failure with hypoxia and hypercapnia: (2) HCAP (healthcare-associated pneumonia): (3) Dysphagia: PLAN: 1. Acute hypercarbic and hypoxic combined on chronic hypoxic respiratory failure due to aspiration pneumonia most probably due to dysphagia: Patient had prolonged hospitalization with empyema leading to tracheostomy and PEG tube. Patient continues to refuse AVAPS but currently on BiPAP and intermittent nasal cannula. Patient not able to be sent to [facility] because of recurrent episodes of severe hypoxia which required BiPAP. Patient completed 7 days of antimicrobial on 08/05/2021. Sputum culture grew corynebacterium stratum 3+ but unclear probably normal commensal. On baseline steroid. Diuretic discontinued given acute kidney injury. Ophthalmology Assistant has signed off. Seen by speech therapist had modified barium swallow. Patient has PEG tube. Patient has moderate oropharyngeal dysphagia. Speech therapist recommended pur?ed texture, nectar thick liquid. 08/07: Discussed with the nursing staff to keep the patient on high flow oxygen except BiPAP during naps and night. Mild hypokalemia. Acute anemia with history of anemia chronic anemia: Hemoglobin is between 8 to 9 g. Baseline hemoglobin around 10 g. Stool for occult blood ordered 2. Acute kidney injury, hypernatremia and hyperchloremia, chronic respiratory acidosis with high bicarb 3. COPD not in exacerbation ?Continue with inhalers and chronic steroids. Patient had sepsis during admission which got resolved. Sepsis, qSOFA score 2/3 present on admission probably from pneumonia which got resolved. Patient completed 7 days of antibiotic. Patient also had CHARLY. 4. Severe protein calorie malnutrition: Being followed by retail marketing manager. 5. Depression/anxiety with intermittent confusion, delirium: Patient apathetic and depressed. On BuSpar and Remeron. On Zoloft. 6. VT prophylaxis: Lovenox DVT was discontinued and instead started on heparin 500 subcutaneous twice daily. Charges/Coding Visit Charges Inpatient E&M: 00074 Subs Hosp L2
[2021-08-07] MEDS: Famotidine 200 MG/20 ML MDV 20 MG in 0.9% Normal Saline (Pres. free 8 ML 300 MG IV (08:55)
--- NOTE | 2021-08-07 10:38 | CASEMGMT ---
PILI called Jonatan at [facility] and left a voice mail letting her know patient will possibly be returning today. Rachel Rubalcava CENSUS CLERK LESLIE
--- NOTE | 2021-08-07 11:25 | CASEMGMT ---
PILI called Jonatan and let her know patient will likely be returning today and he needs a bipap. Jonatan said patient needs a pre-cert. PILI told her SW was informed that [employer] is waiving pre-certs until 08-12. Jonatan will check on this and also facilitate getting a bipap for patient. PILI faxed PT/OT from yesterday and bipap settings. Await response. Rachel Rubalcava MOLASSES AND CARAMEL OPERATOR EQUIPMENT DETAILER
--- NOTE | 2021-08-07 12:08 | PN.RENAL_ITS ---
Subjective Subjective does not offer any new complaints Objective Data Objective Data Vital Signs: Vital Signs Temp Pulse Resp BP Pulse Ox 97.9 F 62 18 144/74 H 98 08/07/21 08:52 08/07/21 08:52 08/07/21 08:52 08/07/21 08:52 08/07/21 08:52 Oxygen Flow Rate (L/min) 5 Oxygen Delivery Method Bi-pap Weight: 57.6 kg Body Mass Index (BMI) 18.6 Intake & Output: Intake and Output for Last 24 Hours 08/05/21 08/06/21 08/07/21 23:59 23:59 23:59 Intake Total 1698.25 / 1698.25 3365 / 3365 1001.25 / 1001.25 Output Total 850 / 850 1025 / 1025 625 / 625 Balance 848.25 / 848.25 2340 / 2340 376.25 / 376.25 Medical Nutrition Assessment Dietitian: Malnutrition Criteria Met Start: 07/29/21 08:16 Freq: Status: Active Protocol: Document 08/04/21 12:13 [facility] (Rec: 08/04/21 12:13 [facility] [id number]) Nutrition Malnutrition Evidence of Malnutrition Exists Yes Malnutrition (moderate): Chronic Evidenced By Suboptimal Energy Intake ( Moderate),Physical Changes ( Moderate) Intake Problem Inadequate Oral Intake Etiology related to dysphagia, pt dislike of pureed food and nectar-thick liquids Signs/Symptoms as evidenced by need for PEG TF support and PO meeting less than 50% estimated nutrition needs Status Active Problem Clinical Problem Chronic Disease or Condition Related Malnutrition Etiology Severe protein-calorie malnutrition in the context of chronic disease related to difficulty swallowing, increased energy expenditure and inadequate oral intake Signs/Symptoms as evidenced by PO meeting less than 50% estimated nutrition needs, PEG TF support, BMI 19.7, +NFPA with obvious signs of muscle/fat wasting in the face, orbital and temporal regions Status Active Problem Recommendation Dietitian Recommendations/Changes 1) Continue Regular diet- texture/consistency modifications per SOCIAL WORKER. Will add magic cup/ensure pudding w / meals for additional calories/protein if consumed. 2) Will continue Jevity 1.5 250mL bolus TID via PEG if PO intake at meals is <50%. 200mL H2O flush w/ each bolus. As recommended, enteral nutrition would provide 1125 calories, 67 g protein, and 1398mL total fluid/day, meeting ~66% of pt 's estimated calorie and 90% of estimated protein needs. 3) Adjust enteral nutrition if wt loss occurs and/or if PO intake remains insignificant. 4) Continue daily wts. Lab / Micro Data Result Diagrams: 08/07/21 05:26 08/07/21 05:26 Labs: Laboratory Results - last 24 hr 08/05/21 05:44: Diff Path Review Reviewed 08/07/21 05:26: WBC 4.9, RBC 2.83 L, Hgb 8.6 L, Hct 27.1 L, MCV 95.8 H, MCH 30.4, MCHC 31.7 L, RDW Std Deviation 48.7 H, RDW Coeff of Vita 13.9, Plt Count 146 L, MPV 9.3, Immature Gran % (Auto) 0.200, Neut % (Auto) 73.5 H, Lymph % (Auto) 14.2 L, [place] % (Auto) 7.0, Eos % (Auto) 4.9, Baso % (Auto) 0.2, Absolute Neuts (auto) 3.6, Absolute Lymphs (auto) 0.69 L, Nucleated RBC % 0 08/07/21 05:26: Sodium 144, Potassium 3.3 L, Chloride 106, Carbon Dioxide 35.0 H , Anion Gap 3 L, BUN 50 H, Creatinine 2.08 H, Estim Creat Clear Calc 27.31, Est GFR (MDRD) Af Amer 41 L, Est GFR (MDRD) Non-Af 34 L, BUN/Creatinine Ratio 24.0 H , Glucose 98, Calcium 8.0 L Micro: Microbiology 07/27/21 19:00 Blood Culture (Wb) - Venous Blood Culture - Final No growth in 5 days. 07/27/21 18:50 Blood Culture (Wb) - Venous Blood Culture - Final No growth in 5 days. 07/27/21 20:30 Interface Orders Urine Culture - Final Culture exhibits no growth. 07/28/21 04:20 Sputum, Expectorated/Coughed Gram Stain - Final 07/28/21 04:20 Sputum, Expectorated/Coughed Respiratory Culture - Final Corynebacterium striatum 07/27/21 22:50 Urine Catheter - Navarrete Streptococcus pneumoniae Antigen (M - Final Radiography Diagnostic Testing: Radiology Impression Renal Ultrasound 08/06/21 07:15 IMPRESSION: Echogenic kidneys suggest medical renal disease. No obstructive uropathy or suspicious solid renal lesion, bilateral simple renal cysts. No specific follow-up needed Left pleural effusion Mild ascites Electronically Signed: Mario Alberto Jacques MD at 16:54 EST , Physical Exam Narrative Const: Alert and oriented to person and place. NAD HEENT: Oral mucosa dry, lips dry Neck: Tracheostomy Cardio: S1-S2, rate controlled Respiratory: Lung sounds clear anteriorly and posteriorly, no wheezes rhonchi rales GI: Soft, nontender, positive bowel sounds Extremities: No edema Assessment & Plan Assessment/Plan (1) Acute kidney injury: (2) Acute on chronic respiratory failure with hypoxia and hypercapnia: (3) HCAP (healthcare-associated pneumonia): PLAN: Nonoliguric, hypovolemic CHARLY likely prerenal, ATN from volume depletion. Patient has normal baseline creatinine. UA is not impressive. Renal US without hydronephrosis. cr improved with fluids alone and holding diuretics. no further work up needed. remains on bipap. also has trach. cathleen Kirby
--- NOTE | 2021-08-07 13:09 | NURSING ---
Addendum entered by Kerrie Maldonado 08/07/21 13:44: Pt continued to have oxygen drop into 30's before recovering after bipap settings adjusted. Original Note: Pt desatted to low 70's spo2 on 5LNC. This RN placed pt back on BIPAP and called Herbert Nelson, kiln pusher. RT in to suction pt.
--- NOTE | 2021-08-07 13:20 | CPS ---
Patient saturations dropped and deep suctioning was needed for recovery
--- NOTE | 2021-08-07 13:28 | CASEMGMT ---
SW received a call from Jonatan and she did start patient's pre-cert again. Rachel NELSON
[2021-08-07] MEDS: Jevity 1.5. 1,000 ML Bottle 250 ML GT (15:45)
[2021-08-07] MEDS: Ondansetron 4 MG/2 ML Vial IV (15:53)
[2021-08-08] VITALS (8 sets, daily range): BP systolic 121–145; BP diastolic 65–78; PULSE 63–77; RESP 16–22; TEMP 36.6–37.2; O2SAT 95–100
[2021-08-08 06:11] LABS: Absolute Neutrophil Count 2.7 X10^3/uL (2.0-7.7); Basophil# 0.02 X10^3/uL; Basophil% 0.5 % (0-1); Eosinophil# 0.24 X10^3/uL; Eosinophils% 6.1 % (0-5); Hematocrit 27.2 % (40-54); Hemoglobin 9.1 g/dL (13.0-16.5); Lymphocyte % 17.7 % (19-41); Mean Corp Hgb Conc 33.5 g/dL (32-36); Mean Corpuscular Hgb 31.4 pg (27.0-32.0); Mean Corpuscular Volume 93.8 fL (80-94); Monocyte# 0.33 X10^3/uL; Monocyte% 8.3 % (0-10); NRBC Flagged by Analyzer 0 % (0-5); Neutrophil # 2.65 X10^3/uL (2.7-7.7); Neutrophil % 66.9 % (47-70); Platelet Count 171 K/mm3 (150-450); RBC Distribution Width CV 13.6 % (11.6-14.6); RBC Distribution Width SD 46.5 fl (35.1-43.9)
[2021-08-08 06:51] LABS: Anion Gap 3 (5-15); BUN 37 mg/dL (7-18); BUN/Creat Ratio 22.4 RATIO (10-20); Calcium,Total 8.1 mg/dL (8.5-10.1); Chloride 103 mmol/L (98-107); Creatinine, Serum 1.65 mg/dL (0.70-1.30); EST Glomerular Filtration Rate 44 mL/min (>60); Est Glom Filt Rate - Afr Amer 53 mL/min (>60); Estimated Creatinine Clearance 34.54 ml/min; Glucose 101 mg/dL (74-106); Potassium 2.9 mmol/L (3.5-5.1); Sodium Level 142 mmol/L (136-145)
[2021-08-08 08:13] LABS: Phosphorus 2.2 mg/dL (2.5-4.9)
[2021-08-08] MEDS: Potassium Chloride 10mEq/100mL 10 MEQ/100 ML IV.SOLN. 100 MEQ IV BOLUS ×4 (08:34→12:03)
[2021-08-08] MEDS: Famotidine 200 MG/20 ML MDV 20 MG in 0.9% Normal Saline (Pres. free 8 ML 300 MG IV (08:35)
--- NOTE | 2021-08-08 10:06 | TREXTCAR_ITS ---
Diet 07/29/21 08:33 Diet: Regular - General Food consistency:: Pureed Liquid Consistency:: [facility]/Mildly Thick Type of Dietary Supplement:: ensure pudding/magic cup Diet Comments: Direct Sup, SIPS/BITES BY TSP ONLY, Assist as needed to follow strategies Routine Orders/Code Status Suppository Type: Dulcolax 10mg Suppository Frequency: Daily PRN Routine Lab Work: CBC and BMP (Weekly CBC and BMP) Code Status: Full Code Therapies Weight Bearing: Weight bearing as tolerated Extremity Affected:: Bilateral Lower Physical Therapy: Eval and Treat Occupational Therapy: Eval and Treat Speech Therapy: Eval and Treat Problem/Diagnosis (1) Acute on chronic respiratory failure with hypoxia and hypercapnia: Status: Chronic (2) HCAP (healthcare-associated pneumonia): Status: Acute (3) Dysphagia: Status: Acute Allergies/Procedures Done in Hospital Allergies No Known Allergies Allergy (Verified 07/27/21 18:52) Type of Care/Length of Stay Estimated LOS: Convalescent Care Less Than 30 days Type of Care Needed: Skilled Rehab Potential: Good Prognosis: Good Additional Orders/Day of Discharge Day of Discharge: 08/08/21 Dietary and Speech Recommendations Dietitian Recommendations/Changes: 1) Continue Regular diet- texture/consistency modifications per REGIONAL DEDICATED TRUCK DRIVER. Will offer magic cup/ensure pudding w/ meals for additional calories/protein if consumed. 2) Will continue Jevity 1.5 250mL bolus TID via PEG if PO intake at meals is <50%. 200mL H2O flush w/ each bolus. As recommended, enteral nutrition would provide 1125 calories, 67 g protein, and 1398mL total fluid/day, meeting ~66% of pt's estimated calorie and 90% of estimated protein needs. May benefit from increase to 300mL bolus TID if PO intake <50% of meal; however increased enteral nutrition support will not be of benefit if pt continues to refuse. 3) Will adjust enteral nutrition if PO intake remains insignificant- however pt has been refusing boluses today. 4) Continue daily wts. Discharge Plan Admission Admit Date/Time: 07/27/21 20:18 Primary Reason for Your Visit: Acute on chronic combined respiratory failure Attending Provider: Frank Kirby Primary Care Provider: Aleyda Ny Consulting Providers: Gerard Gibbs ; Elver Gates Discharge Orders/Prescriptions Prescriptions: New acetaminophen [Tylenol] 325 mg Tablet 650 mg PO Q4H PRN PRN (Reason: Fever, pain 1-04/08) Qty: 0 RF: 0 sertraline 50 mg Tablet 50 mg PO DAILY Qty: 0 RF: 0 Jevity 1.5 Gamal 0.06 gram-1.5 kcal/mL Liquid 250 ml G-tube TIDPC Qty: 0 RF: 0 potassium, sodium phosphates 280-160-250 mg Powder In Packet 1 packet G-tube TID Qty: 6 RF: 0 Continued albuterol sulfate 90 mcg/actuation HFA aerosol inhaler 2 puff INHALATION Q4H PRN (Reason: shortness of breath or wheezing) Qty: 8.5 RF: 6 loperamide 2 mg Capsule 2 mg PO Q6H PRN (Reason: Diarrhea) RF: 0 melatonin 3 mg Tablet 3 mg PO DAILY RF: 0 famotidine 20 mg Tablet 20 mg PO BID RF: 0 furosemide 20 mg Tablet 20 mg PO DAILY RF: 0 mirtazapine [Remeron] 15 mg Tablet 7.5 mg PO DAILY RF: 0 buspirone 15 mg Tablet 15 mg PO TID PRN (Reason: Anxiety) RF: 0 guaifenesin 50 mg/5 mL Liquid 200 mg PO Q4H PRN (Reason: cough) RF: 0 magnesium oxide 400 mg magnesium Tablet 400 mg PO DAILY RF: 0 prednisone 10 mg Tablet 10 mg PO DAILY Qty: 0 RF: 0 Changed enoxaparin 40 mg/0.4 mL Syringe 30 mg SUBCUT DAILY Qty: 0 RF: 0 Discontinued azithromycin 250 mg Tablet 250 mg PO DAILY RF: 0 dexamethasone [Decadron] 4 mg Tablet 4 mg PO DAILY RF: 0 Referrals / Follow Up: Gerard Gibbs DO [STAFF PHYSICIAN] - Within 2 Weeks (for tracheostomy and on Bipap during night) Aleyda Ny MD [Primary Care Provider] - In 1 Week Disposition Disposition (needs filled in before D/C Order can be placed): Group Home Facility
--- NOTE | 2021-08-08 10:47 | CASEMGMT ---
PILI called Jonatan at [facility] and patient was approved. PILI let Jonatan know that patient will be returning today. PILI asked RN to please do a rapid COVID test. PILI notified physician. Await orders. Rachel NELSON
--- NOTE | 2021-08-08 11:22 | DS.PCM_ITS ---
Providers Date of Admission: 07/27/21 Date of Discharge: 08/08/21 Primary Care Physician: Dr. Aleyda Ny MD Consultations 07/27/21 22:08 Consult: Commercial Sales Consultant / Pulmonary Medicine Routine Consulting Provider: Gerard Gibbs Reason for Consult: Resp failure, HCAP EMERGENT Consult: No Notified: Yes Date Notified: 07/27/21 Time Notified: 20:23 Method of Notification: cortext 08/05/21 13:32 Consult: Nephrology Routine Consulting Provider: Elver Gates Reason for Consult: Worsening CHARLY EMERGENT Consult: No Notified: Yes Date Notified: 08/05/21 Time Notified: 13:36 Method of Notification: Answering Service Reason For Visit: RESP FAILURE, PNA Diagnosis Discharge Diagnosis (1) Acute on chronic respiratory failure with hypoxia and hypercapnia: Status: Chronic Code(s): J96.21 - Acute and chronic respiratory failure with hypoxia; J96.22 - Acute and chronic respiratory failure with hypercapnia (2) HCAP (healthcare-associated pneumonia): Status: Acute Code(s): J18.9 - Pneumonia, unspecified organism (3) Dysphagia: Status: Acute Code(s): R13.10 - Dysphagia, unspecified Medications at Discharge Home Medications albuterol sulfate 90 mcg/actuation aerosol inhaler 2 puff INHALATION Q4H PRN #8.5 g 05/23/20 buspirone 15 mg PO TID PRN 07/27/21 famotidine 20 mg PO BID 07/27/21 guaifenesin 200 mg PO Q4H PRN 07/27/21 loperamide 2 mg PO Q6H PRN 07/27/21 magnesium oxide 400 mg PO DAILY 07/27/21 mirtazapine [Remeron] 7.5 mg PO DAILY 07/27/21 acetaminophen [Tylenol] 650 mg PO Q4H PRN PRN #0 tab 08/08/21 enoxaparin 30 mg SUBCUT DAILY #0 ml 08/08/21 lactose-reduced food with fibr [Jevity 1.5 Gamal] 250 ml G-TUBE TIDPC #0 ml 08/08/21 potassium, sodium phosphates 1 packet G-TUBE TID #6 ea 08/08/21 prednisone 10 mg PO DAILY #0 tab 08/08/21 sertraline 50 mg PO DAILY #0 tab 08/08/21 Hospital Course Summary of Care Provided Minutes Spent on Discharge: 35 Hospital Course: This 70-year-old gentleman was admitted from [facility] for hypoxia, worsening altered mental status for 1 day. She was also found severely hypoxic. Patient has history of emphysema on right side with chest tube placement in February 2021 and ended up with tracheostomy and PEG tube. Patient was admitted to ICU for further management. 1. Acute hypercarbic and hypoxic combined on chronic hypoxic respiratory failure due to aspiration pneumonia most probably due to dysphagia: Patient was managed on NIPPV. Patient continues to refuse AVAPS but currently on BiPAP during naps and at night and intermittent nasal cannula. Patient not able to be sent to retirement because of recurrent episodes of severe hypoxia which required BiPAP. Patient completed 7 days of antimicrobial on 08/05/2021. Sputum culture grew corynebacterium stratum 3+ but unclear probably normal commensal. On baseline steroid. Diuretic discontinued given acute kidney injury. Portable Trackman has signed off. Seen by speech therapist had modified barium swallow. Patient has PEG tube. Patient has moderate oropharyngeal dysphagia. Speech therapist recommended pur?ed texture, nectar thick liquid. Discussed with the nursing staff to keep the patient on high flow oxygen except BiPAP during naps and night. Mild hypokalemia. 08/08: Hypokalemia, 2.9 potassium IV KCl total 40 M EQ given. Patient also had mild hypophosphatemia and Neutra-Phos is being given. Magnesium is pending. Last magnesium on 08/02 normal. Acute anemia with history of anemia chronic anemia: Hemoglobin is between 8 to 9 g. Last hemoglobin 9.1 g%. Baseline hemoglobin around 10 g. Stool for occult blood ordered but probably patient not did not have bowel movement or not colle ct 2. Acute kidney injury, hypernatremia and hyperchloremia, chronic respiratory acidosis with high bicarb CHARLY getting better. No indication for renal replacement therapy. Lasix discontinued. 3. COPD not in exacerbation ?Continue with inhalers and chronic steroids. Patient had sepsis during a dmission which got resolved. Sepsis, qSOFA score 2/3 present on admission probably from pneumonia which got resolved. Patient completed 7 days of antibiotic. Patient also had CHARLY. 4. Severe protein calorie malnutrition: Being followed by language and literature division chair. 5. Depression/anxiety with intermittent confusion, delirium: Patient apathetic and depressed. On BuSpar and Remeron. On Zoloft. 6. DVT prophylaxis: Since patient is high risk for VTE therefore Lovenox 30 mils subcu daily with H&H monitoring in SNF. Discharge medication reconciliation done. Discharge follow-up instructions completed. Discharge process discussed with the patient and all questions were answered to patient's satisfaction. Patient is being transferred to retirement. Total time spent, exact 35 minutes on discharge meds reconciliation, examination, coordination of care with nurses and ancillary staff, review of imaging and blood test and discussion with the patient on follow-up instructions Physical Exam Narrative Patient does not follow dietary and medication recommendations. Refusing for diet and medication intake. Discussed with the nursing staff. BiPAP during sleep. General: Awake, alert and oriented x3. Severe protein calorie malnutrition HEENT: Atraumatic, PERRLA, EOMI, Normocephalic Oral: BiPAP during naps and at night. Neck: Tracheostomy. Supple, No JVD Lungs: Air entry diminished in bilateral lung bases. On 6 L of oxygen. Cardiovascular: Sinus rhythm, Normal S1, Normal S2, No murmurs Abdomen: Has PEG tube bowel Sounds Present, Soft, Non Tender, Non-Distended : No renal angle tenderness. No suprapubic tenderness. Extremities: No edema, Capillary Refill Less than 3 Seconds Skin: No rashes, No breakdown Musculoskeletal: Moderate atrophy of muscles of extremity with loss of subcutaneous fat. No Tenderness to Palpation of Joints or Extremities Neurological: Cranial nerves II-XII grossly intact, DTR 2+/4 Psych/Mental Status: Flat affect Medical Records Data Medical Nutrition Assessment Dietitian: Malnutrition Criteria Met Start: 07/29/21 08:16 Freq: Status: Active Protocol: Document 08/04/21 12:13 [facility] (Rec: 08/04/21 12:13 [facility] [id number]) Nutrition Malnutrition Evidence of Malnutrition Exists Yes Malnutrition (moderate): Chronic Evidenced By Suboptimal Energy Intake ( Moderate),Physical Changes ( Moderate) Intake Problem Inadequate Oral Intake Etiology related to dysphagia, pt dislike of pureed food and nectar-thick liquids Signs/Symptoms as evidenced by need for PEG TF support and PO meeting less than 50% estimated nutrition needs Status Active Problem Clinical Problem Chronic Disease or Condition Related Malnutrition Etiology Severe protein-calorie malnutrition in the context of chronic disease related to difficulty swallowing, increased energy expenditure and inadequate oral intake Signs/Symptoms as evidenced by PO meeting less than 50% estimated nutrition needs, PEG TF support, BMI 19.7, +NFPA with obvious signs of muscle/fat wasting in the face, orbital and temporal regions Status Active Problem Recommendation Dietitian Recommendations/Changes 1) Continue Regular diet- texture/consistency modifications per CLEANING SPECIALIST. Will add magic cup/ensure pudding w / meals for additional calories/protein if consumed. 2) Will continue Jevity 1.5 250mL bolus TID via PEG if PO intake at meals is <50%. 200mL H2O flush w/ each bolus. As recommended, enteral nutrition would provide 1125 calories, 67 g protein, and 1398mL total fluid/day, meeting ~66% of pt 's estimated calorie and 90% of estimated protein needs. 3) Adjust enteral nutrition if wt loss occurs and/or if PO intake remains insignificant. 4) Continue daily wts. Weight / BMI Weight Weight: 127 lb 6.835 oz Body Mass Index (BMI) 18.6 ABG / Lab / Microbiology Data Result Diagrams: 08/08/21 05:45 08/08/21 05:45 Laboratory: Laboratory Results - last 24 hr 08/08/21 05:45: WBC 4.0 L, RBC 2.90 L, Hgb 9.1 L, Hct 27.2 L, MCV 93.8, MCH 31.4, MCHC 33.5 D, RDW Std Deviation 46.5 H, RDW Coeff of Vita 13.6, Plt Count 171, MPV 10.0, Immature Gran % (Auto) 0.500, Neut % (Auto) 66.9, Lymph % (Auto) 17.7 L, [place] % (Auto) 8.3, Eos % (Auto) 6.1 H, Baso % (Auto) 0.5, Absolute Neuts (auto) 2.7, Absolute Lymphs (auto) 0.70 L, Nucleated RBC % 0 08/08/21 05:45: Sodium 142, Potassium 2.9 L, Chloride 103, Carbon Dioxide 36.0 H , Anion Gap 3 L, BUN 37 H, Creatinine 1.65 H, Estim Creat Clear Calc 34.54, Est GFR (MDRD) Af Amer 53 L, Est GFR (MDRD) Non-Af 44 L, BUN/Creatinine Ratio 22.4 H , Glucose 101, Calcium 8.1 L 08/08/21 05:45: Phosphorus 2.2 L, Magnesium Cancelled Microbiology: Microbiology 07/27/21 19:00 Blood Culture (Wb) - Venous Blood Culture - Final No growth in 5 days. 07/27/21 18:50 Blood Culture (Wb) - Venous Blood Culture - Final No growth in 5 days. 07/27/21 20:30 Interface Orders Urine Culture - Final Culture exhibits no growth. 07/28/21 04:20 Sputum, Expectorated/Coughed Gram Stain - Final 07/28/21 04:20 Sputum, Expectorated/Coughed Respiratory Culture - Final Corynebacterium striatum 07/27/21 22:50 Urine Catheter - Navarrete Streptococcus pneumoniae Antigen (M - Final Meaningful Use Info Meaningful Use Diagnoses (Choose all that apply): None applicable Discharge Plan Admission Admit Date/Time: 07/27/21 20:18 Primary Reason for Your Visit: Acute on chronic combined respiratory failure Attending Provider: Frank Kirby Primary Care Provider: Aleyda Ny Consulting Providers: Gerard Gibbs ; Elver Gates Discharge Orders/Prescriptions Prescriptions: New acetaminophen [Tylenol] 325 mg Tablet 650 mg PO Q4H PRN PRN (Reason: Fever, pain 1-04/08) Qty: 0 RF: 0 sertraline 50 mg Tablet 50 mg PO DAILY Qty: 0 RF: 0 Jevity 1.5 Gamal 0.06 gram-1.5 kcal/mL Liquid 250 ml G-tube TIDPC Qty: 0 RF: 0 potassium, sodium phosphates 280-160-250 mg Powder In Packet 1 packet G-tube TID Qty: 6 RF: 0 Continued albuterol sulfate 90 mcg/actuation HFA aerosol inhaler 2 puff INHALATION Q4H PRN (Reason: shortness of breath or wheezing) Qty: 8.5 RF: 6 loperamide 2 mg Capsule 2 mg PO Q6H PRN (Reason: Diarrhea) RF: 0 famotidine 20 mg Tablet 20 mg PO BID RF: 0 mirtazapine [Remeron] 15 mg Tablet 7.5 mg PO DAILY RF: 0 buspirone 15 mg Tablet 15 mg PO TID PRN (Reason: Anxiety) RF: 0 guaifenesin 50 mg/5 mL Liquid 200 mg PO Q4H PRN (Reason: cough) RF: 0 magnesium oxide 400 mg magnesium Tablet 400 mg PO DAILY RF: 0 prednisone 10 mg Tablet 10 mg PO DAILY Qty: 0 RF: 0 Changed enoxaparin 40 mg/0.4 mL Syringe 30 mg SUBCUT DAILY Qty: 0 RF: 0 Discontinued azithromycin 250 mg Tablet 250 mg PO DAILY RF: 0 melatonin 3 mg Tablet 3 mg PO DAILY RF: 0 dexamethasone [Decadron] 4 mg Tablet 4 mg PO DAILY RF: 0 furosemide 20 mg Tablet 20 mg PO DAILY RF: 0 Referrals / Follow Up: Gerard Gibbs DO [STAFF PHYSICIAN] - Within 2 Weeks (for tracheostomy and on Bipap during night) Aleyda Ny MD [Primary Care Provider] - In 1 Week Disposition Disposition (needs filled in before D/C Order can be placed): [facility] Facility Charges/Coding Visit Charges Inpatient E&M: 35390 Disch Hosp
--- NOTE | 2021-08-08 12:30 | CASEMGMT ---
PILI arranged for patient to get picked up at 1600 via cot. SW faxed orders, negative COVID, and picking belt operator time to [facility]. SW notified patient's mom, electrical technology instructor, RN, and Jonatan at [facility]. Plan: d/c back to [facility] under skilled level of care. [facility] transported via cot at 1600. Rachel NELSON
--- NOTE | 2021-08-08 12:51 | PCM.PN.REN ---
Subjective Subjective no new events Objective Data Objective Data Vital Signs: Vital Signs Temp Pulse Resp BP Pulse Ox 98.5 F 64 22 H 121/65 H 95 08/08/21 09:00 08/08/21 09:00 08/08/21 09:00 08/08/21 09:00 08/08/21 10:54 Oxygen Flow Rate (L/min) 4 Oxygen Delivery Method Nasal Cannula Weight: 57.8 kg Body Mass Index (BMI) 18.6 Intake & Output: Intake and Output for Last 24 Hours 08/06/21 08/07/21 08/08/21 23:59 23:59 23:59 Intake Total 3365 / 3365 1796.25 / 1796.25 1406.25 / 1406.25 Output Total 1025 / 1025 1625 / 1625 675 / 675 Balance 2340 / 2340 171.25 / 171.25 731.25 / 731.25 Medical Nutrition Assessment Dietitian: Malnutrition Criteria Met Start: 07/29/21 08:16 Freq: Status: Active Protocol: Document 08/04/21 12:13 [facility] (Rec: 08/04/21 12:13 [facility] [id number]) Nutrition Malnutrition Evidence of Malnutrition Exists Yes Malnutrition (moderate): Chronic Evidenced By Suboptimal Energy Intake ( Moderate),Physical Changes ( Moderate) Intake Problem Inadequate Oral Intake Etiology related to dysphagia, pt dislike of pureed food and nectar-thick liquids Signs/Symptoms as evidenced by need for PEG TF support and PO meeting less than 50% estimated nutrition needs Status Active Problem Clinical Problem Chronic Disease or Condition Related Malnutrition Etiology Severe protein-calorie malnutrition in the context of chronic disease related to difficulty swallowing, increased energy expenditure and inadequate oral intake Signs/Symptoms as evidenced by PO meeting less than 50% estimated nutrition needs, PEG TF support, BMI 19.7, +NFPA with obvious signs of muscle/fat wasting in the face, orbital and temporal regions Status Active Problem Recommendation Dietitian Recommendations/Changes 1) Continue Regular diet- texture/consistency modifications per GREEN JOBS TRAINER. Will add magic cup/ensure pudding w / meals for additional calories/protein if consumed. 2) Will continue Jevity 1.5 250mL bolus TID via PEG if PO intake at meals is <50%. 200mL H2O flush w/ each bolus. As recommended, enteral nutrition would provide 1125 calories, 67 g protein, and 1398mL total fluid/day, meeting ~66% of pt 's estimated calorie and 90% of estimated protein needs. 3) Adjust enteral nutrition if wt loss occurs and/or if PO intake remains insignificant. 4) Continue daily wts. Lab / Micro Data Result Diagrams: 08/08/21 05:45 08/08/21 05:45 Labs: Laboratory Results - last 24 hr 08/08/21 05:45: WBC 4.0 L, RBC 2.90 L, Hgb 9.1 L, Hct 27.2 L, MCV 93.8, MCH 31.4, MCHC 33.5 D, RDW Std Deviation 46.5 H, RDW Coeff of Vita 13.6, Plt Count 171, MPV 10.0, Immature Gran % (Auto) 0.500, Neut % (Auto) 66.9, Lymph % (Auto) 17.7 L, [place] % (Auto) 8.3, Eos % (Auto) 6.1 H, Baso % (Auto) 0.5, Absolute Neuts (auto) 2.7, Absolute Lymphs (auto) 0.70 L, Nucleated RBC % 0 08/08/21 05:45: Sodium 142, Potassium 2.9 L, Chloride 103, Carbon Dioxide 36.0 H, Anion Gap 3 L, BUN 37 H, Creatinine 1.65 H, Estim Creat Clear Calc 34.54, Est GFR (MDRD) Af Amer 53 L, Est GFR (MDRD) Non-Af 44 L, BUN/Creatinine Ratio 22.4 H, Glucose 101, Calcium 8.1 L 08/08/21 05:45: Phosphorus 2.2 L, Magnesium Cancelled Micro: Microbiology 08/08/21 10:50 Nasal Secretion SARS-CoV-2 Antigen (Rapid) - Final 07/27/21 19:00 Blood Culture (Wb) - Venous Blood Culture - Final No growth in 5 days. 07/27/21 18:50 Blood Culture (Wb) - Venous Blood Culture - Final No growth in 5 days. 07/27/21 20:30 Interface Orders Urine Culture - Final Culture exhibits no growth. 07/28/21 04:20 Sputum, Expectorated/Coughed Gram Stain - Final 07/28/21 04:20 Sputum, Expectorated/Coughed Respiratory Culture - Final Corynebacterium striatum 07/27/21 22:50 Urine Catheter - Navarrete Streptococcus pneumoniae Antigen (M - Final Physical Exam Narrative Const: Alert and oriented to person and place. NAD HEENT: Oral mucosa dry, lips dry Neck: Tracheostomy Cardio: S1-S2, rate controlled Respiratory: Lung sounds clear anteriorly and posteriorly, no wheezes rhonchi rales GI: Soft, nontender, positive bowel sounds Extremities: No edema Assessment & Plan Assessment/Plan (1) Acute kidney injury: (2) Acute on chronic respiratory failure with hypoxia and hypercapnia: (3) HCAP (healthcare-associated pneumonia): PLAN: Nonoliguric, hypovolemic CHARLY likely prerenal, ATN from volume depletion. Patient has normal baseline creatinine. UA is not impressive. Renal US without hydronephrosis. cr improved with fluids alone and holding diuretics. no further work up needed. remains on bipap. also has trach. hypokalemia. repleted this am cathleen Kirby
[2021-08-08] MEDS: Na Biphos/Potassium Phosphate PACKET 1 PACKET GT (13:26)
--- NOTE | 2021-08-08 14:33 | NURSING ---
Called report Marisol RAUSCH at [facility]
--- NOTE | 2021-08-08 16:12 | CASEMGMT ---
PILI faxed new Transfer to [facility] and new med list to [facility]. PILI also called Jonatan and let her know new orders were being faxed. Rachel Rubalcava OPERATIONS INTELLIGENCE SUPERINTENDENT MOTHER'S HELPER
[2021-08-09 10:57] LABS: MG Sendout 1.9 mg/dL (1.6-2.3)
== END 2021-08-08 16:45 | disposition skilled nursing facility (03) | DRG 871 ==
LOC: ED 19:43 → ICU 20:25 → PCU 07-30 07:00 → ICU 07-30 11:02
PROVIDERS: Family Medicine; Internal Medicine; Internal Medicine Critical Care Medicine; Internal Medicine Nephrology; Student in an Organized Health Care Education/Training Program; Admitting Provider Family Medicine; Emergency Provider Emergency Medicine; PCP Internal Medicine; Visit Provider Internal Medicine
DX: A41.9 Sepsis, unspecified organism (principal); J96.21 Acute and chronic respiratory failure with hypoxia; N17.0 Acute kidney failure with tubular necrosis; J69.0 Pneumonitis due to inhalation of food and vomit; E43 Unspecified severe protein-calorie malnutrition; J18.9 Pneumonia, unspecified organism; G93.41 Metabolic encephalopathy; J96.22 Acute and chronic respiratory failure with hypercapnia; J44.0 Chronic obstructive pulmonary disease with (acute) lower respiratory infection; E87.0 Hyperosmolality and hypernatremia; Z68.1 Body mass index [BMI] 19.9 or less, adult; E83.39 Other disorders of phosphorus metabolism; I48.0 Paroxysmal atrial fibrillation; Z93.0 Tracheostomy status; Z93.1 Gastrostomy status; I95.9 Hypotension, unspecified; E87.6 Hypokalemia; D53.9 Nutritional anemia, unspecified; E87.8 Other disorders of electrolyte and fluid balance, not elsewhere classified; F41.9 Anxiety disorder, unspecified; Z87.891 Personal history of nicotine dependence; R13.12 Dysphagia, oropharyngeal phase; Z79.01 Long term (current) use of anticoagulants; F32.A Depression, unspecified; Y95 Nosocomial condition
CPT/HCPCS: 31720; 36415; 36592; 36600; 70450; 71045; 74230; 76770; 80048; 80053; 80202; 81001; 82570; 82803; 83605; 83735; 84100; 84145; 84300; 84484; 85025; 85610; 85730; 87040; 87070; 87086; 87205; 87426; 87449; 87635; 87641; 92507; 92526; 92610; 92611; 93005; 94002; 94003; 94640; 97110; 97162; 97163; 97167; 97530; 97535; 97802; 97803; 99285; J7030; J7050; A4216; C1751; J0295; J2405; J3490; U0003; U0005

== ENCOUNTER 2021-08-09 01:25 | Emergency (ER) | payer MEDICARE, MEDICAID, SELFPAY ==
[2021-08-09 01:26] VITALS: BP 117/66; PULSE 90; RESP 26; TEMP 36.9; O2SAT 67; BMI 20.7
[2021-08-09 01:29] VITALS: BP 117/66; PULSE 82; RESP 26; TEMP 36.9; O2SAT 91
--- NOTE | 2021-08-09 01:35 | ED.RN ---
PT PRESENTS WITH A CAPPED TRACHEOSTOMY AND A MIDABD PEG TUBE.
--- NOTE | 2021-08-09 01:35 | ED.RN ---
EDWARD POLLACK AT BEDSIDE FOR SUCTIONING.
--- NOTE | 2021-08-09 01:39 | RAD_ITS ---
STUDY: X-RAY CHEST REASON FOR EXAM: Male, 70 years old. Hypoxia TECHNIQUE: Single AP portable view x2 of the chest. COMPARISON: 08/05/2021 chest x-ray FINDINGS: Visualized tracheostomy tube. There is a moderate to large left pleural effusion with layering atelectasis. There is a right pleural effusion with right lower lobe atelectasis and/or infiltrate. This appears superimposed on underlying chronic lung disease chronic obstructive pulmonary disease. There is moderate cardiac enlargement. Normal mediastinum and genaro. Normal visualized pulmonary arteries. Normal visualized aortic arch and descending thoracic aorta. There are diffuse degenerative changes of the visualized thoracic spine. Normal visualized ribs, clavicles, and shoulders. There is no demonstrated abnormality of the visualized soft tissue structures of the upper abdomen. RAD/Chest 1 View (Portable) IMPRESSION: Relatively stable chest bilateral effusions left greater than right lower lobe atelectasis and/or infiltrates. Tracheostomy tube. Cardiomegaly. Electronically Signed: Yeni Villegas MD at 2:43 EST ,
--- NOTE | 2021-08-09 01:39 | EKG12_ITS ---
Test Reason : SOB Blood Pressure : / mmHG Vent. Rate : 092 BPM Atrial Rate : 092 BPM P-R Int : 116 ms QRS Dur : 092 ms QT Int : 336 ms P-R-T Axes : 071 054 062 degrees QTc Int : 415 ms Sinus rhythm with frequent Premature ventricular complexes Low voltage QRS Borderline ECG Confirmed by MARYLIN CALLAWAY, TUSHAR ([id number]), editor city HANNAH NARVAEZ ([id number]) on 08/10/2021 10:43:32 AM Referred By: Confirmed By:TUSHAR COULTER MD
[2021-08-09 01:47] LABS: Absolute Lymphocyte Count 0.75 X10^3/uL (0.83-4.51); Basophil# 0.01 X10^3/uL; Basophil% 0.2 % (0-1); Eosinophil# 0.15 X10^3/uL; Eosinophils% 2.8 % (0-5); Hematocrit 29.7 % (40-54); Lymphocyte # 0.75 X10^3/ul (0.83-4.51); Mean Corp Hgb Conc 33.7 g/dL (32-36); Mean Corpuscular Hgb 31.7 pg (27.0-32.0); Mean Corpuscular Volume 94.3 fL (80-94); Mean Platelet Vol. 9.8 fl (6.2-12.0); Monocyte# 0.39 X10^3/uL; Monocyte% 7.3 % (0-10); NRBC Flagged by Analyzer 0 % (0-5); Neutrophil # 4.02 X10^3/uL (2.7-7.7); Neutrophil % 74.8 % (47-70); Platelet Count 216 K/mm3 (150-450); RBC Distribution Width CV 13.2 % (11.6-14.6); RBC Distribution Width SD 45.5 fl (35.1-43.9); Red Blood Count 3.15 M/mm3 (4.6-6.2); White Blood Count 5.4 K/mm3 (4.4-11.0)
[2021-08-09] MEDS: Ipratropium/Albuterol Sulfate 3 ML AMPUL.NEB INHALATION (02:04)
[2021-08-09 02:05] VITALS: PULSE 86; RESP 24
[2021-08-09 02:05] LABS: BNP,B-Type NATRIURETIC PEPTIDE 305.1 pg/mL (0-100)
[2021-08-09 02:06] LABS: ALB/GLOB Ratio 0.6 RATIO (0.9-2.4); AST(SGOT) 16 U/L (15-37); Alanine Aminotransfer ALT/SGPT 11 U/L (16-61); Alkaline Phosphatase 60 U/L (45-117); Anion Gap 4 (5-15); BUN 33 mg/dL (7-18); BUN/Creat Ratio 20.6 RATIO (10-20); Calcium,Total 8.2 mg/dL (8.5-10.1); Chloride 103 mmol/L (98-107); EST Glomerular Filtration Rate 46 mL/min (>60); Est Glom Filt Rate - Afr Amer 55 mL/min (>60); Estimated Creatinine Clearance 39.38 ml/min; Globulin 3.6 g/dL (2.2-4.2); Glucose 79 mg/dL (74-106); Potassium 3.7 mmol/L (3.5-5.1); Protein, Total 5.6 g/dL (6.4-8.2); Sodium Level 143 mmol/L (136-145); Troponin-I HS 75 pg/mL (3.0-78.0)
[2021-08-09 02:08] LABS: Lactic Acid 0.8 mmol/L (0.4-1.9)
--- NOTE | 2021-08-09 02:59 | EX.ED.DYSGE1 ---
HPI History of Present Illness Chief Complaint: Shortness of Breath Informant: patient, EMS and SNF Narrative Narrative: 70-year-old male released from the hospital yesterday was found to be hypoxic at the [place] [facility] today. Reportedly his oxygen was not hooked up. He was found to be hypoxemic in the 60s. Upon arrival here the patient is rhonchorous. He is not febrile. The hospital course was reviewed. [facility] Medical History Alcohol abuse Atrial fibrillation (03/19/21) COPD (chronic obstructive pulmonary disease) Former smoker Vision loss of left eye Vision loss of right eye Home Medications albuterol sulfate 90 mcg/actuation aerosol inhaler 2 puff INHALATION Q4H PRN #8.5 g 05/23/20 [Rx Last Taken 03/18/21] buspirone 15 mg PO TID PRN 07/27/21 [History Last Taken Unknown] famotidine 20 mg PO BID 07/27/21 [History Last Taken Unknown] guaifenesin 200 mg PO Q4H PRN 07/27/21 [History Last Taken Unknown] loperamide 2 mg PO Q6H PRN 07/27/21 [History Last Taken Unknown] magnesium oxide 400 mg PO DAILY 07/27/21 [History Last Taken Unknown] mirtazapine [Remeron] 7.5 mg PO DAILY 07/27/21 [History Last Taken Unknown] acetaminophen [Tylenol] 650 mg PO Q4H PRN PRN #0 tab 08/08/21 [Rx Last Taken Unknown] enoxaparin 30 mg SUBCUT DAILY #0 ml 08/08/21 [Rx Last Taken Unknown] lactose-reduced food with fibr [Jevity 1.5 Gamal] 250 ml G-TUBE TIDPC #0 ml 08/08/21 [Rx Last Taken Unknown] potassium, sodium phosphates 1 packet G-TUBE TID #6 ea 08/08/21 [Rx Last Taken Unknown] sertraline 50 mg PO DAILY #0 tab 08/08/21 [Rx Last Taken Unknown] Allergy/AdvReac Type Severity Reaction Status Date / Time No Known Allergies Allergy Verified 07/27/21 18:52 Family History Father BPH (benign prostatic hyperplasia) Grandfather BPH (benign prostatic hyperplasia) Surgical History H/O nasal septoplasty History of suburethral sling procedure History of thoracic surgery S/P TURP Social History housing: [facility] Smoking Status: Former smoker quit date: 03/30/20 pack-years: 50 Tobacco: How many years used: 50 how long ago did patient quit smoking: Smoked since 01/28/1967m 1 ppd until quit. alcohol intake: former substance use type: does not use ROS ROS ED Constitutional Constitutional ED: Denies chills, fever(s) or weight loss Eyes Eyes: Denies change in vision or diplopia ENT ENT ED: Denies ear pain, rhinorrhea or sore throat Cardiovascular Cardiovascular: Denies chest pain, orthopnea, palpitations or racing heartbeat Respiratory/Chest Respiratory/Chest: Reports cough, dyspnea and sputum; Denies orthopnea Gastrointestinal Gastrointestinal: Denies abdominal pain, diarrhea, nausea or vomiting Genitourinary Genitourinary ED: Denies dysuria, hematuria or urinary frequency Musculoskeletal Musculoskeletal: Denies arthralgias or myalgias Integumentary Denies abscess or rash Neurologic Neurologic: Denies headache(s) or weakness Psychiatric Psychiatric: Denies anxiety, depression, suicidal ideation or suicidal thoughts Endocrine Endocrinology: Denies polydipsia, polyphagia or polyuria Allergic/Immunologic Allergic/Immunologic ED: Denies mouth swelling, tongue swelling or urticaria EXAM Physical Exam Const Vital Signs: 08/09/21 01:26 08/09/21 01:29 08/09/21 01:30 Temperature 98.5 F 98.5 F Temperature Source Temporal Temporal Pulse Rate 90 82 Respiratory Rate 26 H 26 H Respiratory Effort Short of Breath Respiratory Pattern Blood Pressure 117/66 117/66 Blood Pressure Mean 83 83 Pulse Ox 67 91 Oxygen Delivery Method Room Air Non-Rebreather Oxygen Flow Rate (L/min) 15 08/09/21 02:05 Temperature Temperature Source Pulse Rate 86 Respiratory Rate 24 H Respiratory Effort Respiratory Pattern Tachypnea Blood Pressure Blood Pressure Mean Pulse Ox Oxygen Delivery Method Oxygen Flow Rate (L/min) MDM MDM MDM Narrative Medical decision making narrative: My interpretation of the chest x-ray is bilateral pleural effusions and cardiomegaly. Trach is present. White count is 5.4 hemoglobin is 10. Really his labs are pretty consistent from the way that they were at when he left the hospital as this is chest x-ray. He underwent deep suctioning by respiratory and is currently on 6 L which is what he is supposed to be on. I think things were complicated when he was not attached to the oxygen and there was most likely a component of mucous plugging. I think believe at this point the patient can be discharged back to [facility] with appropriate respiratory care Lab Data Attestation: I reviewed the patient's lab results. Labs: Laboratory Results - last 24 hr 08/09/21 08/09/21 08/09/21 01:35 01:35 01:35 WBC 5.4 RBC 3.15 L Hgb 10.0 L Hct 29.7 L MCV 94.3 H MCH 31.7 MCHC 33.7 RDW Std Deviation 45.5 H RDW Coeff of Vita 13.2 Plt Count 216 MPV 9.8 Immature Gran % (Auto) 0.900 Neut % (Auto) 74.8 H Lymph % (Auto) 14.0 L [place] % (Auto) 7.3 Eos % (Auto) 2.8 Baso % (Auto) 0.2 Absolute Neuts (auto) 4.0 Absolute Lymphs (auto) 0.75 L Nucleated RBC % 0 Sodium 143 Potassium 3.7 Chloride 103 Carbon Dioxide 36.0 H Anion Gap 4 L BUN 33 H Creatinine 1.60 H Estim Creat Clear Calc 39.38 Est GFR (MDRD) Af Amer 55 L Est GFR (MDRD) Non-Af 46 L BUN/Creatinine Ratio 20.6 H Glucose 79 Lactic Acid 0.8 Calcium 8.2 L Total Bilirubin 0.40 AST 16 ALT 11 L Alkaline Phosphatase 60 Troponin I High Sens 75 B-Natriuretic Peptide Total Protein 5.6 L Albumin 2.0 L Globulin 3.6 Albumin/Globulin Ratio 0.6 L 08/09/21 01:35 WBC RBC Hgb Hct MCV MCH MCHC RDW Std Deviation RDW Coeff of Vita Plt Count MPV Immature Gran % (Auto) Neut % (Auto) Lymph % (Auto) [place] % (Auto) Eos % (Auto) Baso % (Auto) Absolute Neuts (auto) Absolute Lymphs (auto) Nucleated RBC % Sodium Potassium Chloride Carbon Dioxide Anion Gap BUN Creatinine Estim Creat Clear Calc Est GFR (MDRD) Af Amer Est GFR (MDRD) Non-Af BUN/Creatinine Ratio Glucose Lactic Acid Calcium Total Bilirubin AST ALT Alkaline Phosphatase Troponin I High Sens B-Natriuretic Peptide 305.1 H Total Protein Albumin Globulin Albumin/Globulin Ratio Radiography Diagnostic Testing: Clinical Impression(s) from Imaging Studies Chest X-Ray 08/09/21 01:39 IMPRESSION: Relatively stable chest bilateral effusions left greater than right lower lobe atelectasis and/or infiltrates. Tracheostomy tube. Cardiomegaly. Electronically Signed: Yeni Villegas MD at 2:43 EST , EKG Initial EKG: Attestation: I personally reviewed and interpreted this EKG as follows: Comments: Sinus rhythm with PVCs and a ventricular rate of 92 bpm Discharge Plan Triage Chief Complaint: Shortness of Breath ED Provider: Meir Terrell Dx/Rx/DC Orders Clinical Impression: Dyspnea, Mucus plugging of bronchi, Acute on chronic respiratory failure with hypoxia and hypercapnia Prescriptions: No Action albuterol sulfate 90 mcg/actuation HFA aerosol inhaler 2 puff INHALATION Q4H PRN (Reason: shortness of breath or wheezing) Qty: 8.5 RF: 6 loperamide 2 mg Capsule 2 mg PO Q6H PRN (Reason: Diarrhea) RF: 0 famotidine 20 mg Tablet 20 mg PO BID RF: 0 mirtazapine [Remeron] 15 mg Tablet 7.5 mg PO DAILY RF: 0 buspirone 15 mg Tablet 15 mg PO TID PRN (Reason: Anxiety) RF: 0 guaifenesin 50 mg/5 mL Liquid 200 mg PO Q4H PRN (Reason: cough) RF: 0 magnesium oxide 400 mg magnesium Tablet 400 mg PO DAILY RF: 0 acetaminophen [Tylenol] 325 mg Tablet 650 mg PO Q4H PRN PRN (Reason: Fever, pain 1-04/08) Qty: 0 RF: 0 sertraline 50 mg Tablet 50 mg PO DAILY Qty: 0 RF: 0 Jevity 1.5 Gamal 0.06 gram-1.5 kcal/mL Liquid 250 ml G-tube TIDPC Qty: 0 RF: 0 enoxaparin 40 mg/0.4 mL Syringe 30 mg SUBCUT DAILY Qty: 0 RF: 0 potassium, sodium phosphates 280-160-250 mg Powder In Packet 1 packet G-tube TID Qty: 6 RF: 0 Primary Care Provider: Aleyda Ny Referrals: Aleyda Ny MD [Primary Care Provider] - Activity Restrictions/Additional Instructions: Please make sure the patient is hooked up to oxygen at all times. Deep suctioning when appropriate. Disposition Disposition: Inpatient Rehab Unit/Facility Discharge Location: [facility]
[2021-08-09 03:15] VITALS: O2SAT 100
[2021-08-09 03:46] VITALS: O2SAT 94
[2021-08-09 04:37] VITALS: BP 111/66; PULSE 88; RESP 18; O2SAT 96
== END 2021-08-09 04:40 ==
PROVIDERS: Emergency Provider Emergency Medicine; PCP Internal Medicine; Visit Provider Emergency Medicine
DX: J96.21 Acute and chronic respiratory failure with hypoxia (principal); Z93.0 Tracheostomy status; J44.9 Chronic obstructive pulmonary disease, unspecified; J96.22 Acute and chronic respiratory failure with hypercapnia; I48.91 Unspecified atrial fibrillation; J90 Pleural effusion, not elsewhere classified; Z87.891 Personal history of nicotine dependence; Z79.899 Other long term (current) drug therapy; I49.3 Ventricular premature depolarization
CPT/HCPCS: 31720; 71045; 80053; 83605; 83880; 84484; 85025; 93005; 94640; 99285; A4216

== ENCOUNTER → 2021-08-09 | Outpatient (REF) | payer SELFPAY ==
[2021-08-09 07:36] LABS: Absolute Lymphocyte Count 0.71 X10^3/uL (0.83-4.51); Basophil# 0.01 X10^3/uL; Basophil% 0.2 % (0-1); Eosinophil# 0.15 X10^3/uL; Eosinophils% 3.6 % (0-5); Hematocrit 25.6 % (40-54); Hemoglobin 8.3 g/dL (13.0-16.5); Lymphocyte # 0.71 X10^3/ul (0.83-4.51); Lymphocyte % 16.9 % (19-41); Mean Corp Hgb Conc 32.4 g/dL (32-36); Mean Corpuscular Hgb 30.3 pg (27.0-32.0); Mean Corpuscular Volume 93.4 fL (80-94); Mean Platelet Vol. 9.9 fl (6.2-12.0); Monocyte# 0.32 X10^3/uL; Monocyte% 7.6 % (0-10); NRBC Flagged by Analyzer 0 % (0-5); Neutrophil # 2.99 X10^3/uL (2.7-7.7); Platelet Count 202 K/mm3 (150-450); RBC Distribution Width CV 13.4 % (11.6-14.6); RBC Distribution Width SD 45.7 fl (35.1-43.9); Red Blood Count 2.74 M/mm3 (4.6-6.2); White Blood Count 4.2 K/mm3 (4.4-11.0)
[2021-08-09 08:00] LABS: Anion Gap 4 (5-15); BUN 31 mg/dL (7-18); BUN/Creat Ratio 21.5 RATIO (10-20); Calcium,Total 7.8 mg/dL (8.5-10.1); Chloride 103 mmol/L (98-107); Creatinine, Serum 1.44 mg/dL (0.70-1.30); EST Glomerular Filtration Rate 52 mL/min (>60); Est Glom Filt Rate - Afr Amer 62 mL/min (>60); Glucose 72 mg/dL (74-106); Potassium 3.3 mmol/L (3.5-5.1); Prealbumin 11.8 mg/dL (20.0-40.0); Sodium Level 143 mmol/L (136-145); Thyroid Stim Hormone (TSH) 1.12 uIU/mL (0.358-3.74)
[2021-08-09 08:23] LABS: Vitamin B12 729 pg/mL (211-911); Vitamin D,25 Hydroxy 28.3 ng/mL
[2021-08-10 14:32] LABS: MG Sendout 1.9 mg/dL (1.6-2.3)
== END | disposition home or self-care (01) ==
LOC: OLS.SW1020 04:00
PROVIDERS: PCP Internal Medicine; Referring Provider Internal Medicine; Visit Provider Internal Medicine
DX: J44.9 Chronic obstructive pulmonary disease, unspecified (principal); I10 Essential (primary) hypertension
CPT/HCPCS: 36415; 80048; 82306; 82607; 83735; 84134; 84443; 85025; 86140

== ENCOUNTER 2021-08-11 00:30 | Emergency (ER) | payer MEDICARE, SELFPAY ==
[2021-08-11 00:31] VITALS: BP 134/76; PULSE 80; RESP 26; TEMP 36.9; O2SAT 91; BMI 20.2
[2021-08-11 00:35] VITALS: BP 134/76; PULSE 84; RESP 23; O2SAT 90
[2021-08-11 00:42] VITALS: O2SAT 94
--- NOTE | 2021-08-11 00:43 | EKG12_ITS ---
Test Reason : SOB Blood Pressure : / mmHG Vent. Rate : 075 BPM Atrial Rate : 075 BPM P-R Int : 100 ms QRS Dur : 078 ms QT Int : 386 ms P-R-T Axes : 027 049 057 degrees QTc Int : 431 ms Sinus rhythm with short GA Low voltage QRS (Limb Leads) Confirmed by MARYLIN CALLAWAY, TUSHAR ([id number]), order editor HANNAH NARVAEZ ([id number]) on 08/14/2021 9:42:19 AM Referred By: IRENE Confirmed By:TUSHAR COULTER MD
--- NOTE | 2021-08-11 00:43 | RAD_ITS ---
STUDY: X-RAY CHEST REASON FOR EXAM: Male, 70 years old. Shortness of breath TECHNIQUE: Single AP portable view of the chest. COMPARISON: 08/09/2021 FINDINGS: Tracheostomy device remains in place. Airspace opacification at the left lung base which appears a hemidiaphragm with moderate size associated left pleural effusion, unchanged. Patchy airspace infiltration throughout bilateral mid lungs and at the right lung base, unchanged. No pneumothorax. Borderline cardiomegaly, unchanged. Normal mediastinum and genaro. Normal visualized pulmonary arteries. Normal visualized aortic arch and descending thoracic aorta. There are diffuse degenerative changes of the visualized thoracic spine. Normal visualized ribs, clavicles, and shoulders. There is no demonstrated abnormality of the visualized soft tissue structures of the upper abdomen. RAD/Chest 1 View (Portable) IMPRESSION: Left basilar consolidated atelectasis versus infiltrate with moderate bilateral midlung and right lung base patchy airspace infiltrate, unchanged. Electronically Signed: Loi Sargent MD at 1:56 EST ,
--- NOTE | 2021-08-11 00:46 | ED.VIS.DYS ---
HPI History of Present Illness Chief Complaint: Shortness of Breath Informant: patient Narrative Narrative: Patient presents by EMS from nursing facility for evidently increased respiratory difficulty. Patient was recently admitted. He has sepsis and pneumonias. Was treated and then sent to extended care facility on 6 L of oxygen. He does have a tracheostomy. He states he has been doing okay since he left. He is not getting worse although he is not getting a lot better. He states he was coughing today. He denies fevers or chills. He denies pain. After suctioning here he feels back to baseline. My understanding is that he does not like people suctioning him. He has not been allowing them to do this at the extended care facility. Respiratory therapy here had to convince him to allow suctioning. They got some thicker mucus type material out. His saturations went from 91% on 15 L up to 94% on his 6 L after suctioning. His breathing is more comfortable. It seems that suctioning helped him significantly. No blood was suction. [facility] Medical History Alcohol abuse Anxiety Atrial fibrillation (03/19/21) COPD (chronic obstructive pulmonary disease) Former smoker Hypertension Insomnia Vision loss of left eye Vision loss of right eye Home Medications albuterol sulfate 90 mcg/actuation aerosol inhaler 2 puff INHALATION Q4H PRN #8.5 g 05/23/20 [Rx Last Taken 03/18/21] buspirone 15 mg PO TID PRN 07/27/21 [History Last Taken Unknown] famotidine 20 mg PO BID 07/27/21 [History Last Taken Unknown] guaifenesin 200 mg PO Q4H PRN 07/27/21 [History Last Taken Unknown] loperamide 2 mg PO Q6H PRN 07/27/21 [History Last Taken Unknown] magnesium oxide 400 mg PO DAILY 07/27/21 [History Last Taken Unknown] mirtazapine [Remeron] 7.5 mg PO DAILY 07/27/21 [History Last Taken Unknown] acetaminophen [Tylenol] 650 mg PO Q4H PRN PRN #0 tab 08/08/21 [Rx Last Taken Unknown] enoxaparin 30 mg SUBCUT DAILY #0 ml 08/08/21 [Rx Last Taken Unknown] lactose-reduced food with fibr [Jevity 1.5 Gamal] 250 ml G-TUBE TIDPC #0 ml 08/08/21 [Rx Last Taken Unknown] potassium, sodium phosphates 1 packet G-TUBE TID #6 ea 08/08/21 [Rx Last Taken Unknown] sertraline 50 mg PO DAILY #0 tab 08/08/21 [Rx Last Taken Unknown] Allergy/AdvReac Type Severity Reaction Status Date / Time No Known Allergies Allergy Verified 07/27/21 18:52 Family History Father BPH (benign prostatic hyperplasia) Grandfather BPH (benign prostatic hyperplasia) Surgical History H/O nasal septoplasty History of suburethral sling procedure History of thoracic surgery S/P TURP Social History housing: [facility] Smoking Status: Former smoker quit date: 03/30/20 pack-years: 50 Tobacco: How many years used: 50 how long ago did patient quit smoking: Smoked since 01/28/1967m 1 ppd until quit. alcohol intake: former substance use type: does not use ROS ROS ED Constitutional Constitutional ED: Denies chills or fever(s) ENT ENT ED: Denies rhinorrhea Cardiovascular Cardiovascular: Denies chest pain Respiratory/Chest Respiratory/Chest: Reports cough and dyspnea; Denies sputum Gastrointestinal Gastrointestinal: Denies abdominal pain, diarrhea, nausea or vomiting Genitourinary Genitourinary ED: Denies dysuria Musculoskeletal Musculoskeletal: Denies myalgias Integumentary Denies rash Neurologic Neurologic: Denies headache(s) Psychiatric Psychiatric: Denies depression Endocrine Endocrinology: Denies polyuria Hematologic/Lymphatic Hematologic/Lymphatic: Reports easy bleeding and easy bruising Allergic/Immunologic Allergic/Immunologic ED: Denies urticaria EXAM Physical Exam Const Vital Signs: 08/11/21 00:31 08/11/21 00:35 08/11/21 00:42 Temperature 98.5 F Temperature Source Oral Pulse Rate 80 84 Respiratory Rate 26 H 23 H Respiratory Effort Short of Breath Respiratory Depth Shallow Respiratory Pattern Irregular Blood Pressure 134/76 H 134/76 H Blood Pressure Mean 95 95 Pulse Ox 91 90 94 Oxygen Delivery Method Non-Rebreather Non-Rebreather Nasal Cannula Oxygen Flow Rate (L/min) 15 15 6 08/11/21 00:55 08/11/21 02:06 08/11/21 02:09 Temperature 98.7 F Temperature Source Temporal Pulse Rate 78 74 69 Respiratory Rate 20 H 16 18 Respiratory Effort Respiratory Depth Respiratory Pattern Blood Pressure 139/68 H 139/68 H Blood Pressure Mean 91 91 Pulse Ox 91 93 Oxygen Delivery Method Oxygen Flow Rate (L/min) Positive cachectic Constitutional Narrative: Patient is wide-awake. He is sitting comfortably in bed. General Appearance ED: cachectic and NAD Nutritional Appearance: cachectic HEENT atraumatic Eyes General Eye ED: Negative for pale conjunctiva or scleral icterus Neck no meningeal signs and no JVD Neck Narrative: Tracheostomy appears to be in good position. Resp normal respiratory effort Resp Narrative: Very mild diffuse rhonchi and slight expiratory wheezing. But breathing is overall unlabored. Auscultation: rhonchi and wheezes Cardio regular rhythm GI non-tender GI Narrative: PEG tube without signs of infection. Palpation: soft Extremity normal to inspection General Extremety ED: Negative for edema General Extremity: Negative for edema Neuro Sensorium / Orientation: alert Psych mental status grossly normal Skin Lesions: no lesions Rashes: no rashes MDM MDM MDM Narrative Medical decision making narrative: Patient refused further work-up other than x-ray. He did not initially when he went suctioning. He just does not like it. I explained that he is going to need regular suctioning or he is can have continual problems. His x-ray did not show any new interval change as read by radiology. I also looked at his x-ray and compared it to prior from the 10th of this month. I cannot mandate he had blood work. I think his symptoms are likely due to decreased frequency of suctioning. I do not have a reason to admit him at this point. Radiography Diagnostic Testing: Clinical Impression(s) from Imaging Studies Chest X-Ray 08/11/21 00:43 IMPRESSION: Left basilar consolidated atelectasis versus infiltrate with moderate bilateral midlung and right lung base patchy airspace infiltrate, unchanged. Electronically Signed: Loi Sargent MD at 1:56 EST , EKG Initial EKG: Comments: EKG done for dyspnea. EKG read by me shows sinus rhythm with overall rate of 75. Mild baseline variation. No ectopy. No acute ST elevation or depression. SC interval, QRS duration and QTc are normal. Discharge Plan Triage Chief Complaint: Shortness of Breath ED Provider: Yo Lizarraga Dx/Rx/DC Orders Clinical Impression: Dyspnea, Mucus plugging of bronchi Instructions: ED Mucous Plug, Trach Tube Prescriptions: No Action albuterol sulfate 90 mcg/actuation HFA aerosol inhaler 2 puff INHALATION Q4H PRN (Reason: shortness of breath or wheezing) Qty: 8.5 RF: 6 loperamide 2 mg Capsule 2 mg PO Q6H PRN (Reason: Diarrhea) RF: 0 famotidine 20 mg Tablet 20 mg PO BID RF: 0 mirtazapine [Remeron] 15 mg Tablet 7.5 mg PO DAILY RF: 0 buspirone 15 mg Tablet 15 mg PO TID PRN (Reason: Anxiety) RF: 0 guaifenesin 50 mg/5 mL Liquid 200 mg PO Q4H PRN (Reason: cough) RF: 0 magnesium oxide 400 mg magnesium Tablet 400 mg PO DAILY RF: 0 acetaminophen [Tylenol] 325 mg Tablet 650 mg PO Q4H PRN PRN (Reason: Fever, pain -04/08) Qty: 0 RF: 0 sertraline 50 mg Tablet 50 mg PO DAILY Qty: 0 RF: 0 Jevity 1.5 Gamal 0.06 gram-1.5 kcal/mL Liquid 250 ml G-tube TIDPC Qty: 0 RF: 0 enoxaparin 40 mg/0.4 mL Syringe 30 mg SUBCUT DAILY Qty: 0 RF: 0 potassium, sodium phosphates 280-160-250 mg Powder In Packet 1 packet G-tube TID Qty: 6 RF: 0 Primary Care Provider: Aleyda Ny Referrals: Aleyda Ny MD [Primary Care Provider] - 3-5 Days if not improving Activity Restrictions/Additional Instructions: I encourage you to have regular suctioning of the tracheostomy. This will help prevent mucus plugging and improve breathing and lung function. Disposition Disposition: [facility] Discharge Location: [facility] Discharge Date/Time: 08/11/21 02:47
[2021-08-11] MEDS: Ipratropium/Albuterol Sulfate 3 ML AMPUL.NEB INHALATION (00:54)
[2021-08-11 00:55] VITALS: PULSE 78; RESP 20
--- NOTE | 2021-08-11 01:23 | ED.RN ---
PT refusing blood work. MD aware and states he's alert and oriented and it's his choice. Pending chest x-ray results.
[2021-08-11 02:06] VITALS: BP 139/68; PULSE 74; RESP 16; TEMP 37.1; O2SAT 91
[2021-08-11 02:09] VITALS: BP 139/68; PULSE 69; RESP 18; O2SAT 93
== END 2021-08-11 02:47 | disposition skilled nursing facility (03) ==
PROVIDERS: Emergency Provider Emergency Medicine; PCP Internal Medicine; Visit Provider Emergency Medicine
DX: J98.09 Other diseases of bronchus, not elsewhere classified (principal); Z93.0 Tracheostomy status; J44.9 Chronic obstructive pulmonary disease, unspecified; I48.91 Unspecified atrial fibrillation; I10 Essential (primary) hypertension; Z87.891 Personal history of nicotine dependence; F41.9 Anxiety disorder, unspecified; Z79.899 Other long term (current) drug therapy; Z86.19 Personal history of other infectious and parasitic diseases; Z87.01 Personal history of pneumonia (recurrent)
CPT/HCPCS: 99285; 31720; 71045; 93005; 94640; J7040

== ENCOUNTER 2021-08-13 13:47 | Inpatient (IN) | payer MEDICARE, MEDICAID, SELFPAY ==
[2021-08-13] VITALS (21 sets, daily range): BP systolic 126–165; BP diastolic 66–79; PULSE 70–91; RESP 17–34; TEMP 36.4–36.9; O2SAT 87–100; BMI 19.5; BMI 17.6
--- NOTE | 2021-08-13 14:11 | EKG12_ITS ---
Test Reason : SOB Blood Pressure : / mmHG Vent. Rate : 080 BPM Atrial Rate : 080 BPM P-R Int : 110 ms QRS Dur : 096 ms QT Int : 368 ms P-R-T Axes : 074 088 077 degrees QTc Int : 424 ms Sinus rhythm with short NM Poor R wave progression Confirmed by MARYLIN CALLAWAY, TUSHAR ([id number]), script editor HANNAH NARVAEZ ([id number]) on 08/15/2021 11:46:24 AM Referred By: ESTHER Confirmed By:TUSHAR COULTER MD
--- NOTE | 2021-08-13 14:13 | EX.ED.DYSGE1 ---
HPI History of Present Illness Chief Complaint: Shortness of Breath Informant: patient and SNF Narrative Narrative: Patient returns to the ER secondary to increased shortness of breath. Patient has chronic respiratory failure and has a trach and PEG. Reported the skilled nursing patient on 10 L nasal cannula and satting 42%. The time of my exam his sat is 97% on a nonrebreather. Patient reportedly has been noncompliant with suctioning of his trach because he does not like it. with He was suctioned on arrival here production of thick yellow mucus. Patient reports cough with sputum production. He denies chest pain, fever, chills. [facility] Medical History (Updated 08/13/21 @ 14:[address] Hannah Cedillo MD) Alcohol abuse Anxiety Atrial fibrillation (03/19/21) Chronic respiratory failure COPD (chronic obstructive pulmonary disease) Former smoker Hypertension Insomnia Tracheostomy in place Vision loss of left eye Vision loss of right eye Home Medications albuterol sulfate 90 mcg/actuation aerosol inhaler 2 puff INHALATION Q4H PRN #8.5 g 05/23/20 [Rx Last Taken 03/18/21] buspirone 15 mg PO TID PRN 07/27/21 [History Last Taken Unknown] famotidine 20 mg PO BID 07/27/21 [History Last Taken Unknown] guaifenesin 200 mg PO Q4H PRN 07/27/21 [History Last Taken Unknown] loperamide 2 mg PO Q6H PRN 07/27/21 [History Last Taken Unknown] magnesium oxide 400 mg PO DAILY 07/27/21 [History Last Taken Unknown] mirtazapine [Remeron] 7.5 mg PO DAILY 07/27/21 [History Last Taken Unknown] acetaminophen [Tylenol] 650 mg PO Q4H PRN PRN #0 tab 08/08/21 [Rx Last Taken Unknown] enoxaparin 30 mg SUBCUT DAILY #0 ml 08/08/21 [Rx Last Taken Unknown] lactose-reduced food with fibr [Jevity 1.5 Gamal] 250 ml G-TUBE TIDPC #0 ml 08/08/21 [Rx Last Taken Unknown] potassium, sodium phosphates 1 packet G-TUBE TID #6 ea 08/08/21 [Rx Last Taken Unknown] sertraline 50 mg PO DAILY #0 tab 08/08/21 [Rx Last Taken Unknown] Allergy/AdvReac Type Severity Reaction Status Date / Time No Known Allergies Allergy Verified 07/27/21 18:52 Family History Father BPH (benign prostatic hyperplasia) Grandfather BPH (benign prostatic hyperplasia) Surgical History (Updated 08/13/21 @ 14:43 by Radha Lucio) H/O nasal septoplasty History of suburethral sling procedure History of thoracic surgery PEG (percutaneous endoscopic gastrostomy) status S/P TURP Social History housing: skilled nursing Smoking Status: Former smoker quit date: 03/30/20 pack-years: 50 Tobacco: How many years used: 50 how long ago did patient quit smoking: Smoked since 01/28/1967m 1 ppd until quit. alcohol intake: former substance use type: does not use ROS ROS ED Constitutional Constitutional ED: Denies chills or fever(s) Eyes Eyes: Denies change in vision ENT ENT ED: Denies rhinorrhea or sore throat Cardiovascular Cardiovascular: Denies chest pain Respiratory/Chest Respiratory/Chest: Reports cough, dyspnea and sputum Gastrointestinal Gastrointestinal: Denies abdominal pain, nausea or vomiting Genitourinary Genitourinary ED: Denies dysuria Musculoskeletal Musculoskeletal: Denies back pain Integumentary Denies rash Neurologic Neurologic: Denies headache(s) or weakness Allergic/Immunologic Allergic/Immunologic ED: Denies urticaria EXAM Physical Exam Const Vital Signs: 08/13/21 13:55 08/13/21 14:03 08/13/21 14:07 Temperature 97.8 F 97.6 F L Temperature Source Oral Oral Pulse Rate 79 82 80 Respiratory Rate 27 H 28 H 25 H Respiratory Effort Respiratory Depth Respiratory Pattern Blood Pressure 158/77 H 144/76 H 144/76 H Blood Pressure Mean 104 98 98 Pulse Ox 95 97 97 Oxygen Delivery Method Non-Rebreather Non-Rebreather Non-Rebreather Oxygen Flow Rate (L/min) 15 Fraction of Inspired Oxygen (FIO2) 08/13/21 14:14 08/13/21 14:15 08/13/21 14:18 Temperature Temperature Source Pulse Rate Respiratory Rate Respiratory Effort Short of Breath Respiratory Depth Normal Respiratory Pattern Tachypnea Blood Pressure Blood Pressure Mean Pulse Ox 100 97 Oxygen Delivery Method Non-Rebreather Non-Rebreather High Flow Oxygen Flow Rate (L/min) 15 15 10 Fraction of Inspired Oxygen (FIO2) 100 Positive well nourished and well developed General Appearance ED: well developed HEENT Reports moist mucous membranes Eyes PERRL and EOMs intact bilaterally Neck supple Neck Narrative: Tracheostomy in place. Chest Wall inspection of chest normal and palpation of chest normal Resp Resp Narrative: Bilateral rhonchi. Cardio regular rate and regular rhythm GI non-tender Palpation: soft Extremity normal to inspection Neuro oriented x3 Sensorium / Orientation: alert Psych mental status grossly normal Skin no rashes or lesions noted MDM MDM MDM Narrative Medical decision making narrative: Patient discussed with respiratory to transition over to high flow nasal cannula. Chest x-ray and lab work obtained. Lab Data Attestation: I reviewed the patient's lab results. Labs: Laboratory Results - last 24 hr 08/13/21 08/13/21 14:20 14:20 WBC 6.0 RBC 2.81 L Hgb 8.8 L Hct 27.2 L MCV 96.8 H MCH 31.3 MCHC 32.4 RDW Std Deviation 47.0 H RDW Coeff of Vita 13.3 Plt Count 214 MPV 9.2 Immature Gran % (Auto) 0.300 Neut % (Auto) 82.0 H Lymph % (Auto) 9.6 L [place] % (Auto) 6.4 Eos % (Auto) 1.2 Baso % (Auto) 0.5 Absolute Neuts (auto) 4.9 Absolute Lymphs (auto) 0.57 L Nucleated RBC % 0 Sodium 145 Potassium 3.9 Chloride 102 Carbon Dioxide 40.0 H Anion Gap 3 L BUN 21 H Creatinine 0.89 Estim Creat Clear Calc 66.48 Est GFR (MDRD) Af Amer 109 Est GFR (MDRD) Non-Af 90 BUN/Creatinine Ratio 23.6 H Glucose 84 Calcium 8.4 L Radiography Chest X-Ray - ED: 1 View and Read by ED Physician Diagnostic Testing: Worsening of the left-sided pleural effusion. EKG Initial EKG: Attestation: I personally reviewed and interpreted this EKG as follows: Interpretation: Sinus Rhythm (Sinus at 80 with no acute ischemia.) Treatment and Re-Evaluation Comments:: On repeat evaluation patient's O2 sat is 90% on 9 L high flow nasal cannula. Lab work is largely unremarkable. Patient's chest x-ray does reveal significant worsening of the left-sided pleural effusion. I do feel this will need to be drained and patient's oxygen will have to be titrated down to a level that is safe for the skilled nursing. I will speak with hospitalist for admission. Discharge Plan Triage Chief Complaint: Shortness of Breath ED Provider: Hannah Cedillo Dx/Rx/DC Orders Clinical Impression: Respiratory failure, Pleural effusion Prescriptions: No Action albuterol sulfate 90 mcg/actuation HFA aerosol inhaler 2 puff INHALATION Q4H PRN (Reason: shortness of breath or wheezing) Qty: 8.5 RF: 6 loperamide 2 mg Capsule 2 mg PO Q6H PRN (Reason: Diarrhea) RF: 0 famotidine 20 mg Tablet 20 mg PO BID RF: 0 mirtazapine [Remeron] 15 mg Tablet 7.5 mg PO DAILY RF: 0 buspirone 15 mg Tablet 15 mg PO TID PRN (Reason: Anxiety) RF: 0 guaifenesin 50 mg/5 mL Liquid 200 mg PO Q4H PRN (Reason: cough) RF: 0 magnesium oxide 400 mg magnesium Tablet 400 mg PO DAILY RF: 0 acetaminophen [Tylenol] 325 mg Tablet 650 mg PO Q4H PRN PRN (Reason: Fever, pain 1-04/08) Qty: 0 RF: 0 sertraline 50 mg Tablet 50 mg PO DAILY Qty: 0 RF: 0 Jevity 1.5 Gamal 0.06 gram-1.5 kcal/mL Liquid 250 ml G-tube TIDPC Qty: 0 RF: 0 enoxaparin 40 mg/0.4 mL Syringe 30 mg SUBCUT DAILY Qty: 0 RF: 0 potassium, sodium phosphates 280-160-250 mg Powder In Packet 1 packet G-tube TID Qty: 6 RF: 0 Primary Care Provider: Aleyda Ny Referrals: Aleyda Ny MD [Primary Care Provider] -
[2021-08-13 14:29] LABS: Absolute Lymphocyte Count 0.57 X10^3/uL (0.83-4.51); Absolute Neutrophil Count 4.9 X10^3/uL (2.0-7.7); Basophil# 0.03 X10^3/uL; Basophil% 0.5 % (0-1); Eosinophil# 0.07 X10^3/uL; Eosinophils% 1.2 % (0-5); Hematocrit 27.2 % (40-54); Hemoglobin 8.8 g/dL (13.0-16.5); Lymphocyte # 0.57 X10^3/ul (0.83-4.51); Lymphocyte % 9.6 % (19-41); Mean Corp Hgb Conc 32.4 g/dL (32-36); Mean Corpuscular Hgb 31.3 pg (27.0-32.0); Mean Corpuscular Volume 96.8 fL (80-94); Mean Platelet Vol. 9.2 fl (6.2-12.0); Monocyte# 0.38 X10^3/uL; Monocyte% 6.4 % (0-10); NRBC Flagged by Analyzer 0 % (0-5); Neutrophil # 4.88 X10^3/uL (2.7-7.7); POSITIVE DIFFERENTIAL YES; Platelet Count 214 K/mm3 (150-450); RBC Distribution Width CV 13.3 % (11.6-14.6); Red Blood Count 2.81 M/mm3 (4.6-6.2)
[2021-08-13 14:30] LABS: Differential Indicated SCAN CRITERIA MET
--- NOTE | 2021-08-13 14:30 | RAD_ITS ---
STUDY: X-RAY CHEST REASON FOR EXAM: Male, 70 years old. Sob TECHNIQUE: Single AP portable view of the chest. COMPARISON: Comparison is made with prior study dated 08/11/2021. FINDINGS: A tracheostomy tube is in situ with the tip at 5 cm proximal to the nuno. EKG electrodes are seen. Since prior study, there has been progressive pleural parenchymal changes in the left hemithorax in keeping with her increasing left pleural effusion and left pulmonary atelectasis and/or infiltrate. Stable increased markings at the right lung base. Underlying emphysematous changes. Normal size heart. Normal mediastinum and genaro. Normal visualized pulmonary arteries. Normal visualized aortic arch and descending thoracic aorta. There are diffuse degenerative changes of the visualized thoracic spine. Normal visualized ribs, clavicles, and shoulders. There is no demonstrated abnormality of the visualized soft tissue structures of the upper abdomen. RAD/Chest 1 View (Portable) IMPRESSION: Progressive pleural-parenchymal changes in the left hemithorax suggestive of progressive left pleural effusion with left pulmonary atelectasis and/or infiltrate. Stable infiltrate and/or atelectasis at the right lung base. Electronically Signed: Juan Crum MD at 14:52 EST ,
[2021-08-13 14:40] LABS: Anion Gap 3 (5-15); BUN 21 mg/dL (7-18); BUN/Creat Ratio 23.6 RATIO (10-20); Calcium,Total 8.4 mg/dL (8.5-10.1); Chloride 102 mmol/L (98-107); Creatinine, Serum 0.89 mg/dL (0.70-1.30); EST Glomerular Filtration Rate 90 mL/min (>60); Est Glom Filt Rate - Afr Amer 109 mL/min (>60); Estimated Creatinine Clearance 66.48 ml/min; Glucose 84 mg/dL (74-106); Potassium 3.9 mmol/L (3.5-5.1); Sodium Level 145 mmol/L (136-145)
[2021-08-13 14:47] LABS: BNP,B-Type NATRIURETIC PEPTIDE 182.5 pg/mL (0-100)
[2021-08-13 14:50] LABS: Hypochromasia 1+
[2021-08-13] MEDS: Furosemide 40 MG/4 ML Vial IV (15:08)
--- NOTE | 2021-08-13 15:19 | PCM.HP.STD ---
[facility] - [facility] General Date of Service: 08/13/21 Chief Complaint: respiratory distress for 2 to 3 days. [facility] Narrative MAGO GILLIAM, is a 70 M who presents with multiple comorbidities recent admission from 07/27-08/08 for acute on chronic combined respiratory failure status post tracheostomy, pneumonia was sent from detention for worsening respiratory distress. As per EMS, patient was cyanotic and pulse ox dropped to 42% on 10 L of oxygen through nasal cannula. EMS put on nonrebreathing mask and pulse ox went to 93%. Patient denies chest pain, fever, chills. He also has chronic cough with clear sputum production which recently got worse. When I asked about aspiration, he said he feels cough, choking sensation on modified dysphagia diet in detention. In ED, his vitals heart rate and blood pressure in normal range, pulse ox 95% on 15 L nonrebreather, short of breath, dyspneic at rest with tachypnea. Labs reviewed, BUN/creatinine 31/1.44.. Chest x-ray individually reviewed and shows large left worsening of pleural effusion. Twelve-lead EKG normal sinus rhythm, QTC 124 ms. Respiratory therapist evaluating the patient. I called sport psychologist and decide further to admit in ICU [facility] Medical History Alcohol abuse Anxiety Atrial fibrillation (03/19/21) Chronic respiratory failure COPD (chronic obstructive pulmonary disease) Former smoker Hypertension Insomnia Tracheostomy in place Vision loss of left eye Vision loss of right eye Home Medications albuterol sulfate 90 mcg/actuation aerosol inhaler 2 puff INHALATION Q4H PRN #8.5 g 05/23/20 [Rx Last Taken 03/18/21] buspirone 15 mg PO TID PRN 07/27/21 [History Last Taken Unknown] famotidine 20 mg PO BID 07/27/21 [History Last Taken Unknown] guaifenesin 200 mg PO Q4H PRN 07/27/21 [History Last Taken Unknown] loperamide 2 mg PO Q6H PRN 07/27/21 [History Last Taken Unknown] magnesium oxide 400 mg PO DAILY 07/27/21 [History Last Taken Unknown] mirtazapine [Remeron] 7.5 mg PO QHS 07/27/21 [History Last Taken Unknown] acetaminophen [Tylenol] 650 mg PO Q4H PRN PRN #0 tab 08/08/21 [Rx Last Taken Unknown] enoxaparin 30 mg SUBCUT DAILY #0 ml 08/08/21 [Rx Last Taken Unknown] lactose-reduced food with fibr [Jevity 1.5 Gamal] 250 ml G-TUBE TIDPC #0 ml 08/08/21 [Rx Last Taken Unknown] potassium, sodium phosphates 1 packet G-TUBE TID #6 ea 08/08/21 [Rx Last Taken Unknown] sertraline 50 mg PO DAILY #0 tab 08/08/21 [Rx Last Taken Unknown] guaifenesin 200 mg PO Q4H PRN 08/13/21 [History Last Taken Unknown] Allergy/AdvReac Type Severity Reaction Status Date / Time No Known Allergies Allergy Verified 07/27/21 18:52 Family History Father BPH (benign prostatic hyperplasia) Grandfather BPH (benign prostatic hyperplasia) Surgical History H/O nasal septoplasty History of suburethral sling procedure History of thoracic surgery PEG (percutaneous endoscopic gastrostomy) status S/P TURP Social History housing: detention Smoking Status: Former smoker quit date: 03/30/20 pack-years: 50 Tobacco: How many years used: 50 how long ago did patient quit smoking: Smoked since 01/28/1967m 1 ppd until quit. alcohol intake: former substance use type: does not use ROS ROS Narrative Complete 14 ROS limited due to patient respiratory distress and except as mentioned in the HPI Constitutional: Reports fatigue and weakness HEENT: Tracheostomy Tube capped. Respiratory/Chest: As mentioned in HPI Gastrointestinal: PEG tube. Denies coffee ground emesis, hematemesis or vomiting Genitourinary: Denies burning urination or new urinary tract symptoms Musculoskeletal: Denies loss of muscle. Generalized nonspecific muscle and bone pain. Neurologic: Denies seizure-like activity skin: No ulcer. No rash Endocrinology: Reports systems reviewed and no addt'l complaints, except as documented Hematologic/Lymphatic: Reports systems reviewed and no addt'l complaints, except as documented Vital Signs Vital Signs Vital Signs: 08/13/21 13:55 08/13/21 14:03 08/13/21 14:07 Temperature 97.8 F 97.6 F L Temperature Source Oral Oral Pulse Rate 79 82 80 Respiratory Rate 27 H 28 H 25 H Respiratory Effort Respiratory Depth Respiratory Pattern Blood Pressure 158/77 H 144/76 H 144/76 H Blood Pressure Mean 104 98 98 Pulse Ox 95 97 97 Oxygen Delivery Method Non-Rebreather Non-Rebreather Non-Rebreather Oxygen Flow Rate (L/min) 15 Fraction of Inspired Oxygen (FIO2) 08/13/21 14:14 08/13/21 14:15 08/13/21 14:18 Temperature Temperature Source Pulse Rate Respiratory Rate Respiratory Effort Short of Breath Respiratory Depth Normal Respiratory Pattern Tachypnea Blood Pressure Blood Pressure Mean Pulse Ox 100 97 Oxygen Delivery Method Non-Rebreather Non-Rebreather High Flow Oxygen Flow Rate (L/min) 15 15 10 Fraction of Inspired Oxygen (FIO2) 100 Weight Weight: 132 lb 4.438 oz Body Mass Index (BMI) 19.5 Physical Exam Narrative General: Awake, oriented x3, no respiratory distress HEENT: Atraumatic, PERRLA, EOMI, Normocephalic Oral: No Gingival or Mucosal Lesions/ Ulcerations Neck: Supple, No JVD, Negative Carotid Bruits Lungs: Air entry very diminished in left caudal two third of chest. Tachypnea, severe hypoxia. Stony dullness from the left fourth intercostal space below Cardiovascular: Regular rate, Regular Rhythm, Normal S1, Normal S2, No murmurs Abdomen: PEG tube present. Bowel Sounds Present, Soft, Non Tender, Non-Distended : No renal angle tenderness. No suprapubic tenderness. Extremities: No edema, Capillary Refill Less than 3 Seconds Skin: No rashes, No breakdown Musculoskeletal: Moderate to severe loss of muscle bulk of all extremities. No Tenderness to Palpation of Joints or Extremities Neurological: Cranial nerves II-XII grossly intact, DTR 2+/4, Neuro grossly intact Psych/Mental Status: Flat affect. Results Lab / Micro Data Result Diagrams: 08/13/21 14:20 08/13/21 14:20 Labs: Laboratory Results - last 24 hr 08/13/21 14:20: WBC 6.0, RBC 2.81 L, Hgb 8.8 L, Hct 27.2 L, MCV 96.8 H, MCH 31.3, MCHC 32.4, RDW Std Deviation 47.0 H, RDW Coeff of Vita 13.3, Plt Count 214, MPV 9.2, Immature Gran % (Auto) 0.300, Neut % (Auto) 82.0 H, Lymph % (Auto) 9.6 L, [place] % (Auto) 6.4, Eos % (Auto) 1.2, Baso % (Auto) 0.5, Absolute Neuts (auto) 4.9, Absolute Lymphs (auto) 0.57 L, Nucleated RBC % 0, Hypochromasia 1+ 08/13/21 14:20: Sodium 145, Potassium 3.9, Chloride 102, Carbon Dioxide 40.0 H, Anion Gap 3 L, BUN 21 H, Creatinine 0.89, Estim Creat Clear Calc 66.48, Est GFR (MDRD) Af Amer 109, Est GFR (MDRD) Non-Af 90, BUN/Creatinine Ratio 23.6 H, Glucose 84, Calcium 8.4 L 08/13/21 14:20: B-Natriuretic Peptide 182.5 H Radiology Impression Chest X-Ray 08/13/21 14:30 IMPRESSION: Progressive pleural-parenchymal changes in the left hemithorax suggestive of progressive left pleural effusion with left pulmonary atelectasis and/or infiltrate. Stable infiltrate and/or atelectasis at the right lung base. Electronically Signed: Juan Crum MD at 14:52 EST Reading Location ID and State: [address] [place] [address] , Service support , Assessment & Plan Assessment/Plan (1) Acute on chronic respiratory failure with hypoxia and hypercapnia: PLAN: MAGO GILLIAM, is a 70 M is being admitted for acute on chronic respiratory failure most related to large left pleural effusion with suspicion of possible aspiration pneumonia presents with multiple comorbidities recent admission from 07/27-08/08 for acute on chronic combined respiratory failure status post 1. Acute on chronic hypoxic respiratory failure: Patient is being admitted in ICU. I talked to sport psychologist and requested consult. Lasix 40 mg IV stat ordered. ABG ordered. BiPAP ordered and if respiratory status further worsens, tracheostomy tube can be connected to the ventilator. 2. Large left pleural effusion with suspicion of possible pneumonia, most probably aspiration pneumonia: Pneumonia work-up ordered. Chest x-ray individually reviewed and shows large left worsening of pleural effusion. Twelve-lead EKG individually reviewed, normal sinus rhythm, QTC 124 ms. Ultrasound guided therapeutic thoracocentesis ordered. Pleural fluid analytical labs ordered. 3. Anemia of chronic anemia: Hemoglobin is between 8 to 9 g. Baseline hemoglobin around 10 g. Stool for occult blood ordered. 4. COPD: Patient does not have rhonchi but his respiratory distress most probably due to pleural effusion. Bronchodilator as needed, incentive spirometry and chest physiotherapy. Patient had prolonged course of antibiotic last time. 4. Severe protein calorie malnutrition: Being followed by assembly supervisor. 5. Depression/anxiety with intermittent confusion, delirium: Patient apathetic and depressed. On BuSpar and Remeron. On Zoloft. Home medication reconciliation done 6. DVT prophylaxis: Lovenox 30 g subcu daily. Discontinue if platelet count drops less than 50,000 or hemoglobin less than 8 g%. Hold her dose before tomorrow thoracocentesis. Living will/advanced directive/end of life care: Patient does not have living will or advanced directive. He does not have designated health of power of managing attorney for health. He said his next to kin is Keegan but his mother Jennifer Tolliver is listed as next of kin. After discussion of benefits/risks procedures involved with full code, DNR CC arrest and DNR CC, the patient opted for full code. Patient does want artificial life support including intubation, tube feed, ventilator and/chest compression, central venous catheter, vasopressor and DC shock if needed Total time spent in [id number] encounter in discussion of advanced directive 16 minutes. Charges/Coding Visit Charges Inpatient E&M: 52132 Init Hosp L3 Procedures Hospitalists Procedures: 89318 Advncd Care Plan 30 Min
--- NOTE | 2021-08-13 17:00 | CASEMGMT ---
Readmission chart review: 07/27/2021 - 08/08/2021 Respiratory failure, pneumonia 08/13/2021 - current Patient with history of chronic COPD with chronic hypoxic respiratory failure and recent empyema with prolonged hospitalization and PEG/trach placement. Patient currently resides at [facility]. Patient was sent to [facility] ER from [facility] on 07/26 for dyspnea and hypoxia with difficulty suctioning oral airway. Per chart review, patient was maintaining oxygen saturation 95% on his baseline 5LPM oxygen in ER and was discharged back to SNF. Patient returned to [facility] ER from [facility] the next day for hypoxia and increasing altered mental status and was admitted for HCAP, acute on chronic respiratory failure with hypoxia and hypercapnia and sepsis. At that time, it was noted that patient had been left off of his baseline oxygen for several hours (6 hours) at [facility] with severe hypoxia, encephalopathy prior to ER arrival. Patient was discharged back to [facility] on 08/08/2021. Patient presented to [facility] ER on 08/09/2021 for c/o hypoxia and again on 08/11/2021 for c/o difficulty breathing and discharged from ER back to [facility] on both dates. Patient reportedly noncompliant with suctioning of his trach, not allowing staff to perform suctioning at SNF. Patient again returned to [facility] ER on 08/13/2021 for c/o worsening respiratory distress. Per EMS, patient was cyanotic with SpO2 42% on 10L per nasal cannula. CXR reveals significant worsening of the left-sided pleural effusion. In ER, SpO2 90% on 9LPM per high-flow nasal cannula. BUN 31, Cr 1.44. Patient readmitted to [facility] for acute on chronic respiratory failure with hypoxia and hypercapnia. CM to follow for any further discharge planning/needs. MIRACLE Marie CM
--- NOTE | 2021-08-13 18:19 | ED.RN ---
attempted to call pt's son but number has changed.
[2021-08-13 20:16] LABS: M R Staph aureus DNA By PCR Negative (Negative); Probe Check PASS; Specimen Processing Control PASS
[2021-08-13] MEDS: Mirtazapine 15 MG Tablet 7.5 MG PO (21:02)
[2021-08-13] MEDS: Famotidine 20 MG Tablet PO (21:02)
[2021-08-13] MEDS: Jevity 1.5. 1,000 ML Bottle 250 ML GT (21:02)
--- NOTE | 2021-08-13 21:38 | NURSING ---
Pt's mother, Jennifer Tolliver, calls in for update on pt. This RN updates Jennifer and answers questions, updates on plan of care including thoracentesis for tomorrow, 08/14. Jennifer has numerous questions regarding the procedure and wishes to speak with physician regarding same.
[2021-08-14] VITALS (25 sets, daily range): BP systolic 113–146; BP diastolic 48–70; PULSE 66–103; RESP 17–31; TEMP 36.2–37; O2SAT 75–113
--- NOTE | 2021-08-14 | IMM_PTH ---
PATIENT: MAGO GILLIAM LOC: [facility] U#:[id number] AGE/SX: 70/M ROOM: [facility] RE08/13/[address]: Dr. Laurie Ivory DO : 1950 BED: 1 DIS: 09/05/2021 SPEC #: [id number] RECD: 08/16/21 13:59 STATUS: SOUT REQ #: [id number] DEYSI: 08/14/21 00:[address]: Frank Kirby DEPT: IMMUNOHISTOCHEMISTRY RECD BY: Elisa Howe ENTERED: 08/16/21 14:01 SP TYPE: IMMUNO OTHR DR: MD Dr. Gerard Montiel DO Dr. Nicholas F Kotsonis, MD Dr. Prakash Chand, MD Christina Muller, SUPERINTENDENT OF GENERATION-C Dr. Aleyda Ny MD Tissues: THORACIC FLUID Procedures: Gamal Ret (add) CK20 (add) CK5-6 (add) CK7 (add) CK8 (add) NY (add) TTF1 (add) Vimentin (add) Pankeratin (add) ER (initial) Comments: @ Ordering doctor for ER edited from to @ by JAVON at 08/16/21 140 @ Ordering doctor for CALRET. edited from to @ by JAVON at 08/16/21 140 @ Ordering doctor for CK20. edited from to @ by JAVON at 08/16/21 140 @ Ordering doctor for CK5-6. edited from to @ by JAVON at 08/16/21 1402 @ Ordering doctor for CK7. edited from to @ by JAVON at 08/16/21 1402 @ Ordering doctor for CK8. edited from to @ by RGOOD at 08/16/21 140 @ Ordering doctor for MACRO. edited from to @ by RGOOD at 08/16/21 140 @ Ordering doctor for NY. edited from to DR.PCHAND Cramer by RGOOD at 08/16/21 1402 @ Ordering doctor for TTF1. edited from to @ by RGOOD at 08/16/21 140 @ Ordering doctor for VIM. edited from to @ by RGOOD at 08/16/21 1402 @ Ordering doctor for PANK. edited from to @ by RGOOD at 08/16/21 140 @ Submitting doctor edited from to DR.PCHAND Cramer by RGOOD at 08/16/21 140[address] [place] [id number] SPECIMEN INFORMATION: Tissue Source: Thoracentesis fluid Clinical Info: Left pleural effusion, acute on chronic respiratory failure Specimen Number: [id number] CPT code: 40392, 33254 x9 METHODOLOGY: Deparaffinized sections of prefer/formalin-fixed tissue or PAP/DQ stained slides are incubated with monoclonal/polyclonal antibodies/oligonucleotide probes. Localization is made via biotin free immunoperoxidase method. Appropriate controls are performed and reacted as expected. Results on target cell population are indicated in the following table: RESULTS: ANTIBODY / CLONE RESULT ER (6F11) negative NY (1E2) negative AE1-3 (AE1/AE3/PCK26) negative * CK7 (OV-TL12/30) negative * CK8 ([id number]) negative * CK20 (KS20.8) Vimentin (V9) negative * TTF-1 (8G7G3/1) negative CALRET (polyclonal) negative * CK5-6 (D5 & 1684) negative * *?Positive in mesothelial cells. These tests were developed and their performance characteristics determined by [facility]. They may not have been cleared or approved by the U.S. Food and Drug Administration. The FDA has determined that such clearance or approval is not necessary. The above immunohistochemical/dualISH markers are ordered and reviewed by the Pathologist. INTERPRETATION: Thoracentesis fluid: Negative for malignant cells. SJ:aiden 08/17/2021
--- NOTE | 2021-08-14 | FLU_PTH ---
PATIENT: MAGO GILLIAM LOC: [facility] U#:[id number] AGE/SX: 70/M ROOM[facility] RE08/13/[address]: Dr. Laurie Ivory DO : 1950 BED: 1 DIS: 09/05/2021 SPEC #: [id number] RECD: 08/14/21 14:12 STATUS: LINDA REZoe #: [id number] DEYSI: 08/14/21 00:[address]: Frank Kirby DEPT: CYTOLOGY RECD BY: Ebony Wiley ENTERED: 08/15/21 11:31 SP TYPE: Fluid OTHR DR: MD Dr. Gerard Montiel DO Dr. Nicholas F Kotsonis, MD Christina Muller, SALES REPRESENTATIVE MEATS-C Dr. Aleyda Ny MD Tissues: THORACIC FLUID Procedures: Special Stain Group II Surgery Specimen Level IV Cytospin Fluid HEADER OPERATION: Ultrasound-guided left thoracentesis PRE-OP DIAGNOSIS: Left pleural effusion, acute on chronic respiratory failure TISSUE SUBMITTED: Thoracentesis fluid for cytology DIAGNOSIS CYTOLOGY Thoracentesis fluid for cytology (cytospin and cell block): Negative for malignant cells. See comment. SUNSHINE:aiden 08/16/2021 COMMENT Immunohistochemistry ([id number]) supports the above diagnosis. Clinical correlation and appropriate follow up are necessary. Please make reference to previous specimen ([id number]) thoracentesis fluid for cytology with diagnosis of ?negative for malignant cells and marked acute inflammation.? CYTOLOGY STUDY Slides are reviewed. CYTOLOGY GROSS Received is 105 ml of cloudy yellow fluid labeled with the patient's name and and designated per the requisition as thoracentesis. Submitted for cytology preparation including cell block. / aiden 08/15/2021 TC:5 CPT: 04412, 48708
[2021-08-14 01:42] LABS: Lactic Acid 0.6 mmol/L (0.4-1.9)
[2021-08-14 04:32] LABS: Absolute Lymphocyte Count 0.71 X10^3/uL (0.83-4.51); Basophil# 0.04 X10^3/uL; Basophil% 0.7 % (0-1); Eosinophil# 0.11 X10^3/uL; Eosinophils% 2.1 % (0-5); Hematocrit 27.3 % (40-54); Hemoglobin 8.9 g/dL (13.0-16.5); Lymphocyte # 0.71 X10^3/ul (0.83-4.51); Lymphocyte % 13.2 % (19-41); Mean Corp Hgb Conc 32.6 g/dL (32-36); Mean Corpuscular Hgb 31.2 pg (27.0-32.0); Mean Corpuscular Volume 95.8 fL (80-94); Mean Platelet Vol. 9.4 fl (6.2-12.0); Monocyte# 0.44 X10^3/uL; Monocyte% 8.2 % (0-10); NRBC Flagged by Analyzer 0 % (0-5); Neutrophil # 4.03 X10^3/uL (2.7-7.7); Neutrophil % 75.2 % (47-70); Platelet Count 205 K/mm3 (150-450); RBC Distribution Width CV 13.3 % (11.6-14.6); RBC Distribution Width SD 46.4 fl (35.1-43.9); Red Blood Count 2.85 M/mm3 (4.6-6.2); White Blood Count 5.4 K/mm3 (4.4-11.0)
[2021-08-14 04:49] LABS: ALB/GLOB Ratio 0.5 RATIO (0.9-2.4); Anion Gap 2 (5-15); BUN 22 mg/dL (7-18); Calcium,Total 8.5 mg/dL (8.5-10.1); Chloride 101 mmol/L (98-107); Creatinine, Serum 0.92 mg/dL (0.70-1.30); EST Glomerular Filtration Rate 87 mL/min (>60); Est Glom Filt Rate - Afr Amer 105 mL/min (>60); Globulin 3.7 g/dL (2.2-4.2); Glucose 105 mg/dL (74-106); LDH 181 U/L (87-241); Potassium 3.7 mmol/L (3.5-5.1); Protein, Total 5.7 g/dL (6.4-8.2); Sodium Level 144 mmol/L (136-145)
--- NOTE | 2021-08-14 07:09 | CON.PCM.CC_ITS ---
Assessment & Plan Assessment/Plan (1) Acute on chronic respiratory failure with hypoxia and hypercapnia: (2) Mucus plugging of bronchi: (3) Pleural effusion, right: PLAN: RECOMMENDATIONS: 1. Recommend AVAPS therapy via mask or trach with naps and nightly. 2. Continue supplemental oxygen throughout the day per baseline regimen. 3. Await thoracentesis evaluation 4. Okay to treat with antibiotics empirically for 48 hours pending culture results 5. Must cooperate with continue aerosol treatments along with aggressive bronchopulmonary hygiene. 6. Continued scheduled mucolytic therapy. 7. Okay to leave the intensive care unit from my perspective IMPRESSIONS: 1. Acute combined on chronic hypoxemic respiratory failure The patient has a baseline medical history including COPD and chronic hypoxemic respiratory failure. Patient appears to be refusing tracheostomy care leading to complications of mucous plugging unclear if patient has a significant pleural effusion versus progressive atelectasis secondary to mucous plugging. Patient has responded well to aggressive pulmonary toileting. Clinical suspicion the patient will continue to have complications if he refuses any trach care. Cannot exclude an element of healthcare associated pneumonia given retained secretions. Okay to continue with antibiotics for 48 hours. 2. Encephalopathy Resolved. Patient appears to be more uncooperative than encephalopathic at this time. The patient has not required any positive pressure support, but did have increased FiO2 demands. CT head was unremarkable during recent hospitalization. The patient will interact appropriately, but takes substantial stimulus. 3. Recent prolonged hospitalization with empyema leading to tracheostomy and PEG Continue supportive measures as noted above. Speech therapy recommended modified diet. Nutritional support via PEG tube can be entertained in the interim. Potassium repletion ordered for a PEG for hypokalemia when indicated. 4. History of COPD/paroxysmal atrial fibrillation/malnutrition/history of alcohol and tobacco dependency Complicates care, management, recovery and prognosis. Continue supportive measures as noted above. Physical therapy to evaluate the patient. Okay to dis charge from my perspective with follow-up with primary design quality engineer. HPI Consult Data Date of Consult: 08/14/21 HPI Narrative HPI Narrative: MAGO GILLIAM is a 70 M, with past medical history listed below and well-known to us from previous admissions, who presents to [facility] on 08/13/2021 secondary to progressive shortness of breath and hypoxia. Patient does have a history of trach and PEG and reportedly was saturating 42% on 10 L nasal cannula. Patient reportedly had been refusing any trach care at the nursing facility and was transported the ER for further evaluation. Patient reportedly does have a productive cough, but denied any chest pain, fever or chills. On arrival to the ER, patient was immediately suctioned with the return of thick yellow sputum. Patient was afebrile, but tachypneic with a respiratory rate into the high 20s. Patient was hypertensive and requiring a nonrebreather to maintain saturations. Laboratory work-up showed a white blood cell count of 6, hemoglobin of 8.8 and unremarkable chemistries. Chest x-ray showed significant worsening of left-sided collapse/effusion. Patient was admitted to the intensive care unit for further evaluation. Since being in the intensive care unit, patient has required multiple episodes of suctioning. Patient has been able to be weaned to 3 to 5 L trach collar with good response. Patient continues to be resistant to any trach care, but does appear to improve from inline suctioning. No hemoptysis is been reported. Patient has not provided much additional history and appears to be upset that we are forcing pulmonary toileting on him. Unable to obtain a review of systems secondary to patient cooperation. Patient does appear to be tracking and interacting appropriately otherwise. [facility] Medical History Alcohol abuse Anxiety Atrial fibrillation (03/19/21) Chronic respiratory failure COPD (chronic obstructive pulmonary disease) Former smoker Hypertension Insomnia Tracheostomy in place Vision loss of left eye Vision loss of right eye Home Medications albuterol sulfate 90 mcg/actuation aerosol inhaler 2 puff INHALATION Q4H PRN #8.5 g 05/23/20 [Rx Last Taken 03/18/21] buspirone 15 mg PO TID PRN 07/27/21 [History Last Taken Unknown] famotidine 20 mg PO BID 07/27/21 [History Last Taken Unknown] guaifenesin 200 mg PO Q4H PRN 07/27/21 [History Last Taken Unknown] loperamide 2 mg PO Q6H PRN 07/27/21 [History Last Taken Unknown] magnesium oxide 400 mg PO DAILY 07/27/21 [History Last Taken Unknown] mirtazapine [Remeron] 7.5 mg PO QHS 07/27/21 [History Last Taken Unknown] acetaminophen [Tylenol] 650 mg PO Q4H PRN PRN #0 tab 08/08/21 [Rx Last Taken Unknown] enoxaparin 30 mg SUBCUT DAILY #0 ml 08/08/21 [Rx Last Taken Unknown] lactose-reduced food with fibr [Jevity 1.5 Gamal] 250 ml G-TUBE TIDPC #0 ml 08/08/21 [Rx Last Taken Unknown] potassium, sodium phosphates 1 packet G-TUBE TID #6 ea 08/08/21 [Rx Last Taken Unknown] sertraline 50 mg PO DAILY #0 tab 08/08/21 [Rx Last Taken Unknown] guaifenesin 200 mg PO Q4H PRN 08/13/21 [History Last Taken Unknown] Allergy/AdvReac Type Severity Reaction Status Date / Time No Known Allergies Allergy Verified 07/27/21 18:52 Family History Father BPH (benign prostatic hyperplasia) Grandfather BPH (benign prostatic hyperplasia) Surgical History H/O nasal septoplasty History of suburethral sling procedure History of thoracic surgery PEG (percutaneous endoscopic gastrostomy) status S/P TURP Social History [facility]: penit[facility] Smoking Status: Former smoker quit date: 03/30/20 pack-years: 50 Tobacco: How many years used: 50 how long ago did patient quit smoking: Smoked since 01/28/1967m 1 ppd until quit. alcohol intake: former substance use type: does not use ROS Review of Systems ROS Unobtainable: other Details: Patient cooperation Physical Exam Const alert and no apparent distress General Appearance: cooperative and frail HEENT normocephalic and head/scalp atraumatic Eyes PERRL, EOMs intact bilaterally and conjunctivae normal Neck supple Neck Narrative: Tracheostomy site is C/D/I. No attempt at vocalization during my interaction. Trach mask in place. General: trachea midline Chest inspection of chest normal Resp Auscultation: diminished lung sounds Cardio regular rate and regular rhythm GI normal to inspection, nondistended, normoactive bowel sounds Inspection: GI tube present Extremity no clubbing, cyanosis or edema Skin no rashes or lesions noted Neuro CN's II-XII intact bilaterally and no focal motor deficits Psych cooperative and affect normal Lab / Micro Data Result Diagrams: 08/14/21 04:15 08/14/21 04:15 Labs: Laboratory Results - last 24 hr 08/13/21 14:20: WBC 6.0, RBC 2.81 L, Hgb 8.8 L, Hct 27.2 L, MCV 96.8 H, MCH 31.3, MCHC 32.4, RDW Std Deviation 47.0 H, RDW Coeff of Vita 13.3, Plt Count 214, MPV 9.2, Immature Gran % (Auto) 0.300, Neut % (Auto) 82.0 H, Lymph % (Auto) 9.6 L, [place] % (Auto) 6.4, Eos % (Auto) 1.2, Baso % (Auto) 0.5, Absolute Neuts (auto) 4.9, Absolute Lymphs (auto) 0.57 L, Nucleated RBC % 0, Hypochromasia 1+ 08/13/21 14:20: Sodium 145, Potassium 3.9, Chloride 102, Carbon Dioxide 40.0 H, Anion Gap 3 L, BUN 21 H, Creatinine 0.89, Estim Creat Clear Calc 66.48, Est GFR (MDRD) Af Amer 109, Est GFR (MDRD) Non-Af 90, BUN/Creatinine Ratio 23.6 H, Glucose 84, Calcium 8.4 L 08/13/21 14:20: B-Natriuretic Peptide 182.5 H 08/13/21 18:30: MRSA (PCR) Negative 08/14/21 01:10: Lactic Acid 0.6 08/14/21 04:15: WBC 5.4, RBC 2.85 L, Hgb 8.9 L, Hct 27.3 L, MCV 95.8 H, MCH 31.2, MCHC 32.6, RDW Std Deviation 46.4 H, RDW Coeff of Vita 13.3, Plt Count 205, MPV 9.4, Immature Gran % (Auto) 0.600, Neut % (Auto) 75.2 H, Lymph % (Auto) 13.2 L, Cobb % (Auto) 8.2, Eos % (Auto) 2.1, Baso % (Auto) 0.7, Absolute Neuts (auto) 4.0, Absolute Lymphs (auto) 0.71 L, Nucleated RBC % 0 08/14/21 04:15: Sodium 144, Potassium 3.7, Chloride 101, Carbon Dioxide 41.0 H, Anion Gap 2 L, BUN 22 H, Creatinine 0.92, Estim Creat Clear Calc 58.20, Est GFR (MDRD) Af Amer 105, Est GFR (MDRD) Non-Af 87, BUN/Creatinine Ratio 24.0 H, Gluc ose 105, Calcium 8.5, Lactate Dehydrogenase 181, Total Protein 5.7 L, Globulin 3.7, Albumin/Globulin Ratio 0.5 L Micro: Microbiology 08/13/21 21:00 Urine, Clean Catch Legionella Antigen - Final 08/13/21 21:00 Urine, Clean Catch Streptococcus pneumoniae Antigen (M - Final 08/13/21 17:51 Mucosa - Nose Influenza Types A,B Direct FA (LU) - Final Radiology Impression Chest X-Ray 08/13/21 14:30 IMPRESSION: Progressive pleural-parenchymal changes in the left hemithorax suggestive of progressive left pleural effusion with left pulmonary atelectasis and/or infiltrate. Stable infiltrate and/or atelectasis at the right lung base. Electronically Signed: Juan Crum MD at 14:52 EST , Charges/Coding Visit Charges Inpatient E&M: 23259 Init Hosp L2
--- NOTE | 2021-08-14 08:33 | PCM.PN.HOSP ---
Subjective Subjective Apathetic about his care. There is some report that he may not have been plugged into his oxygen at the SNF however he also does not allow any trach care or significant interventions. This was a big issue with his care during his recent hospitalization in the end of June. Now with actual trach care and suctioning of his mucous he is down to needing to liter oxygen demand and his oxygen saturations with trach mask Objective Data Objective Data Vital Signs: Vital Signs Temp Pulse Resp BP Pulse Ox 98.6 F 78 18 119/68 96 08/14/21 08:00 08/14/21 08:00 08/14/21 08:00 08/14/21 08:00 08/14/21 08:00 Oxygen Flow Rate (L/min) 8 Oxygen Delivery Method Nasal Cannula Weight: 119 lb 11.376 oz Body Mass Index (BMI) 17.6 Intake & Output: Intake and Output for Last 24 Hours 08/13/21 08/14/21 08/15/21 03:59 03:59 03:59 Intake Total 380 / 380 Output Total 300 / 300 250 / 250 Balance 80 / 80 -250 / -250 Lab / Micro Data Result Diagrams: 08/14/21 04:15 08/14/21 04:15 Labs: Laboratory Results - last 24 hr 08/13/21 14:20: WBC 6.0, RBC 2.81 L, Hgb 8.8 L, Hct 27.2 L, MCV 96.8 H, MCH 31.3, MCHC 32.4, RDW Std Deviation 47.0 H, RDW Coeff of Vita 13.3, Plt Count 214, MPV 9.2, Immature Gran % (Auto) 0.300, Neut % (Auto) 82.0 H, Lymph % (Auto) 9.6 L, [place] % (Auto) 6.4, Eos % (Auto) 1.2, Baso % (Auto) 0.5, Absolute Neuts (auto) 4.9, Absolute Lymphs (auto) 0.57 L, Nucleated RBC % 0, Hypochromasia 1+ 08/13/21 14:20: Sodium 145, Potassium 3.9, Chloride 102, Carbon Dioxide 40.0 H, Anion Gap 3 L, BUN 21 H, Creatinine 0.89, Estim Creat Clear Calc 66.48, Est GFR (MDRD) Af Amer 109, Est GFR (MDRD) Non-Af 90, BUN/Creatinine Ratio 23.6 H, Glucose 84, Calcium 8.4 L 08/13/21 14:20: B-Natriuretic Peptide 182.5 H 08/13/21 18:30: MRSA (PCR) Negative 08/14/21 01:10: Lactic Acid 0.6 08/14/21 04:15: WBC 5.4, RBC 2.85 L, Hgb 8.9 L, Hct 27.3 L, MCV 95.8 H, MCH 31.2, MCHC 32.6, RDW Std Deviation 46.4 H, RDW Coeff of Vita 13.3, Plt Count 205, MPV 9.4, Immature Gran % (Auto) 0.600, Neut % (Auto) 75.2 H, Lymph % (Auto) 13.2 L, [place] % (Auto) 8.2, Eos % (Auto) 2.1, Baso % (Auto) 0.7, Absolute Neuts (auto) 4.0, Absolute Lymphs (auto) 0.71 L, Nucleated RBC % 0 08/14/21 04:15: Sodium 144, Potassium 3.7, Chloride 101, Carbon Dioxide 41.0 H, Anion Gap 2 L, BUN 22 H, Creatinine 0.92, Estim Creat Clear Calc 58.20, Est GFR (MDRD) Af Amer 105, Est GFR (MDRD) Non-Af 87, BUN/Creatinine Ratio 24.0 H, Glucose 105, Calcium 8.5, Lactate Dehydrogenase 181, Total Protein 5.7 L, Globulin 3.7, Albumin/Globulin Ratio 0.5 L Micro: Microbiology 08/13/21 21:00 Urine, Clean Catch Legionella Antigen - Final 08/13/21 21:00 Urine, Clean Catch Streptococcus pneumoniae Antigen (M - Final 08/13/21 17:51 Mucosa - Nose Influenza Types A,B Direct FA (LU) - Final Radiography Diagnostic Testing: Radiology Impression Chest X-Ray 08/13/21 14:30 IMPRESSION: Progressive pleural-parenchymal changes in the left hemithorax suggestive of progressive left pleural effusion with left pulmonary atelectasis and/or infiltrate. Stable infiltrate and/or atelectasis at the right lung base. Electronically Signed: Juan Crum MD at 14:52 EST , Physical Exam Const alert and no apparent distress Constitutional Narrative: Minimally interactive and does not cooperate with care HEENT normocephalic and moist oral mucous membranes HEENT Narrative: Trach in place Eyes PERRL, EOMs intact bilaterally and conjunctivae normal Neck supple and no JVD Resp normal respiratory effort, no retractions and no use of accessory muscles Auscultation: diminished lung sounds; Negative for crackles, rales, rhonchi or wheezes Cardio regular rate, regular rhythm, S1 normal heart sound, S2 normal heart sound and no murmurs GI soft to palpation, non-tender and non-distended; Negative for hepatosplenomegaly Extremity no clubbing, cyanosis or edema Skin no rashes or lesions noted Neuro no focal motor deficits and no sensory deficits noted Psych Mood & Affect: flat affect Assessment & Plan Assessment/Plan (1) Acute on chronic respiratory failure with hypoxia and hypercapnia: PLAN: 1. Acute on chronic combined respiratory failure due to possibly mucous plugging shows his pleural effusion on the left -Recent prolonged hospitalization with empyema leading to tracheostomy tube and PEG, followed by prolonged hospitalization here for bob failure -Continues to refuse aspects of his care -Given his lack of compliance with interventions, will discuss the situation with his mother but ultimately will likely have to send him back to the shelter and they will just have to deal with periodic episodes of hypoxia -Continue antimicrobials for 7 days total ?Continue with as needed Lasix -Continue aerosols ?Speech therapy was recommending a modified diet with pur?ed nectar thick liquid, during his last admission ? Will proceed with the thoracentesis 2. COPD not in exacerbation ?Stable ?Continue with inhalers and chronic steroids 3. Depression/anxiety ?He continues to appear apathetic and depressed ?We will continue with his BuSpar and Remeron ?He was started on Zoloft during his last admission, will increase to 100 mg 4. Chronic anemia ?Hemoglobin here is between 8 and 9 baseline is around 10 ?Fecal occult was ordered and pending 5. Severe protein calorie malnutrition DVT: Lovenox Charges/Coding Visit Charges Inpatient E&M: 62270 Subs Hosp L2
--- NOTE | 2021-08-14 09:36 | CASEMGMT ---
Addendum entered by Silvana Betts 08/14/21 13:02: Social Work SW spoke w/Jonatan, they will need a new precert in order for pt to return. SW spoke w/pt's mother who is now at the bedside. She does anticipate pt returning to [facility], though is concerned as pt has been here three times since discharging on the . W/pt's mother's permission, SW attempted to try to get a better understanding from nursing at [facility] what is happening. As per the notes, pt may be refusing suctioning, one note also states however pt's oxygen was not hooked up at the senior living. SW spoke w/nurse Blessing who is not as familiar w/the pt, was told in report that the nurse last night suctioned pt and he was still hypoxic, so sent to the ER. He also had a change in mental status yesterday. She did not know about the other times he came to the hospital. Blessing states the mechanical engineering director just changed, so the best thing to do to reach the mechanical engineering director is to call the facility and ask for the mechanical engineering director. PILI tried this but it is an automated system so could not reach the mechanical engineering director this way. SW called Jonatan in admissions and left a message asking for the name and number of the mechanical engineering director. SW let pt's mother know the information Blessing had passed on to this SW, and that SW is still trying to get a hold of the mechanical engineering director. SW did give pt's mother a list of care home facilities that take pt's insurance, in pt's preferred geographic area, complete with quality and resource use data. PILI explained we can look into making a change but it may be difficult as a lot of places don't take pts who have trachs. Pt's mother is aware that this is the case, she states pt ended up in [facility] from [facility]. For now, pt's mother is not wanting to make a change, wants to see how things go on this hospital stay. Pt's mother also said she thinks [facility] has started helping pt to apply for Medicaid, which may be another reason to return to [facility]. SW will continue to follow. CASSI Antonio Original Note: Social Work SW participated in ICU rounds. Pt sleeping at present. SW called [facility], message left, updates faxed. SW will continue to follow, it is anticipated pt will return to [facility] at discharge. CASSI Antonio
[2021-08-14 11:28] LABS: Magnesium 2.1 mg/dL (1.6-2.6)
--- NOTE | 2021-08-14 13:01 | NURSING ---
Addendum entered by Katey Go 08/14/21 13:03: e[place]ville aware of meds held for proceedure and need to give after proceedure Original Note: report called to Neville Rn, plan is to go thoracentesis then to PCU. mom at bedside, consent signed and aware of new room number after thoracentesis
[2021-08-14] MEDS: Lidocaine 2% (20 ml mdv) 20 ML Vial INFILT (13:49)
--- NOTE | 2021-08-14 14:10 | RAD_ITS ---
STUDY: X-RAY CHEST REASON FOR EXAM: Male, 70 years old. Status post left thoracentesis. TECHNIQUE: AP inspiration and expiration views. COMPARISON: Comparison is made with prior study dated 08/13/2021. FINDINGS: A tracheostomy is in situ. Status post left thoracentesis. There is a tiny left apical pneumothorax. RAD/Chest Insp/Exp 2 View IMPRESSION: Tiny left apical pneumothorax from the left thoracocentesis. Electronically Signed: Juan Crum MD at 14:31 EST ,
--- NOTE | 2021-08-14 14:38 | NURSING ---
Consent signed by mother prior to pt coming to Radiology for procedure. Procedure was explained to pt who was able to nod his head in agreement to understanding the thoracentesis. At 1401 Post-thoracentesis pt was attempting to cough, SpO2 dropped to 83% 8L NC. Respiratory was immediately called to come to ultrasound with trach-suction. While waiting for respiratory pt was able to cough and get SpO2 to increase to 85% 8L NC. Pt increased to 93% on 8L.
[2021-08-14 14:47] LABS: Body Fluid Mononuclear WBC # 0.329 10^3/uL; Body Fluid Mononuclear WBC % 86.8 %; Body Fluid Polynuclear WBC % 13.2 %; Body Fluid Total Cells Counted 0.409 10^3/ul; White Blood Count/Body Fluid 0.379 10^3/uL
[2021-08-14 14:49] LABS: Appearance/Body Fluid SL CLDY; Auto B Fluid Analyzer BKGD Ct COUNTS W/IN LIMITS (W/IN LIMITS); Color/Body Fluid YELLOW; Source- Body Fluid THORACENTESIS
[2021-08-14 15:10] LABS: Glucose, Body Fluid 96 mg/dL (40-70); LDH,Body Fluid 93 Units/l (Not Establ.); Protein, Body Fluid 2.3 g/dL (Not Establ.)
[2021-08-14 15:27] LABS: Lymphocytes 43 %; Mesothelial Cells 1 %; Monocytes 8 %; Neutrophil (Segs) 15 %; Other Cell Type/BF 33 %
[2021-08-14 15:28] LABS: Body Fluid QC Type(s) BF1Q; Red Cell Count/Body Fluid 10 /mm3
[2021-08-14] MEDS: Sertraline 100 MG Tablet PO (16:29)
[2021-08-14] MEDS: Famotidine 20 MG Tablet PO ×2 (16:29→22:54)
[2021-08-14] MEDS: Jevity 1.5. 1,000 ML Bottle 250 ML GT ×2 (16:30→22:53)
[2021-08-14] MEDS: 0.9% Saline Lock 10 ML Syringe IV (16:31)
--- NOTE | 2021-08-14 18:02 | US_ITS ---
PROCEDURE: ULTRASOUND GUIDED THORACENTESIS. DATE: 08/14/2021. INDICATION: Male, 70 years old. Left pleural effusion. PHYSICIAN: Juan Crum M.D. PROCEDURE: The risks, benefits, and alternatives to the procedure were explained to the patient. The specific risks of bleeding, infection, and pneumothorax requiring chest tube insertion were discussed and accepted. Written informed consent was obtained. Ultrasonographic evaluation of the left lower pleural space was carried out. An adequate pocket was identified. The patient was placed in the sitting, upright position. The overlying skin was prepped and draped in sterile fashion. 1% lidocaine was administered subcutaneously for local anesthesia. Under ultrasound guidance, a 5French thoracentesis needle/catheter system was advanced into the left posterior lower pleural fluid collection. Approximately 1170 mL of wali-colored fluid was drained. The catheter was removed, and a sterile dressing was applied. A 120 mL specimen was collected and sent to the laboratory for analysis, as requested by the referring clinician. The patient tolerated the procedure well. A chest x-ray was ordered. US/Thoracentesis W US IMPRESSION: Ultrasound-guided left thoracentesis. Electronically Signed: Juan Crum MD at 14:57 EST ,
[2021-08-14] MEDS: Mirtazapine 15 MG Tablet 7.5 MG PO (22:54)
[2021-08-15] VITALS (16 sets, daily range): BP systolic 125–132; BP diastolic 53–63; PULSE 67–82; RESP 18–24; TEMP 36.6–36.8; O2SAT 80–98
[2021-08-15 05:18] LABS: Absolute Lymphocyte Count 0.56 X10^3/uL (0.83-4.51); Absolute Neutrophil Count 4.3 X10^3/uL (2.0-7.7); Basophil# 0.03 X10^3/uL; Basophil% 0.5 % (0-1); Eosinophil# 0.13 X10^3/uL; Eosinophils% 2.4 % (0-5); Hematocrit 25.7 % (40-54); Hemoglobin 7.9 g/dL (13.0-16.5); Lymphocyte # 0.56 X10^3/ul (0.83-4.51); Lymphocyte % 10.2 % (19-41); Mean Corp Hgb Conc 30.7 g/dL (32-36); Mean Corpuscular Volume 97.7 fL (80-94); Mean Platelet Vol. 9.8 fl (6.2-12.0); Monocyte# 0.45 X10^3/uL; Monocyte% 8.2 % (0-10); NRBC Flagged by Analyzer 0 % (0-5); POSITIVE DIFFERENTIAL YES; Platelet Count 193 K/mm3 (150-450); RBC Distribution Width CV 13.9 % (11.6-14.6); RBC Distribution Width SD 48.8 fl (35.1-43.9); Red Blood Count 2.63 M/mm3 (4.6-6.2); White Blood Count 5.5 K/mm3 (4.4-11.0)
[2021-08-15 05:30] LABS: Differential Indicated SCAN CRITERIA MET
[2021-08-15 05:54] LABS: Anion Gap 0 (5-15); BUN 24 mg/dL (7-18); BUN/Creat Ratio 22.9 RATIO (10-20); Calcium,Total 8.3 mg/dL (8.5-10.1); Chloride 103 mmol/L (98-107); Creatinine, Serum 1.05 mg/dL (0.70-1.30); EST Glomerular Filtration Rate 74 mL/min (>60); Est Glom Filt Rate - Afr Amer 90 mL/min (>60); Glucose 132 mg/dL (74-106); Potassium 3.6 mmol/L (3.5-5.1); Sodium Level 145 mmol/L (136-145)
[2021-08-15 05:56] LABS: Differential Comment SCANNED
[2021-08-15] MEDS: Famotidine 20 MG Tablet PO (09:08)
[2021-08-15] MEDS: Enoxaparin 30 MG/0.3 ML Syringe SC (09:09)
[2021-08-15] MEDS: Sertraline 100 MG Tablet PO (09:12)
--- NOTE | 2021-08-15 09:58 | PN.HOSP_ITS ---
Subjective Subjective When he allows us to do trach care, his oxygen status improves. Discussed with him that he needs to let us suction him and manage his trach. Objective Data Objective Data Vital Signs: Vital Signs Temp Pulse Resp BP Pulse Ox 97.9 F 72 22 H 132/60 H 90 08/15/21 09:26 08/15/21 09:26 08/15/21 09:26 08/15/21 09:26 08/15/21 09:26 Oxygen Flow Rate (L/min) [3] 8 Oxygen Flow Rate (L/min) [2] 8 Oxygen Flow Rate (L/min) [1 ( 8 Initial Baseline)] Oxygen Flow Rate (L/min) 15 Oxygen Delivery Method [3] Nasal Cannula Oxygen Delivery Method [2] Nasal Cannula Oxygen Delivery Method [1 ( Nasal Cannula Initial Baseline)] Oxygen Delivery Method High Flow Weight: 121 lb 11.123 oz Body Mass Index (BMI) 17.6 Intake & Output: Intake and Output for Last 24 Hours 08/14/21 08/15/21 08/16/21 03:59 03:59 03:59 Intake Total 380 / 380 850 / 850 Output Total 300 / 300 1770 / 1770 350 / 350 Balance 80 / 80 -920 / -920 -350 / -350 Medical Nutrition Assessment Dietitian: Malnutrition Criteria Met Start: 08/14/21 10:16 Freq: Status: Active Protocol: Document 08/14/21 10:54 (Rec: 08/14/21 10:54 [id number]) Nutrition Malnutrition Evidence of Malnutrition Exists Yes Malnutrition (severe): Chronic Evidenced By Suboptimal Energy Intake ( Severe),Weight Loss (Severe), Physical Changes (Severe) Clinical Problem Chronic Disease or Condition Related Malnutrition Etiology severe, chronic malnutrition r /t inadequate energy intake d/ t swallowing difficulty, increased energy needs d/t chronic resp. failure Signs/Symptoms as evidenced by estimated PO intake meeting <75% of estimated energy needs >3 months; obvious signs of severe muscle/fat wasting in the face, orbital and temporal regions per physical exam; BMI 17.7; apparent wt loss of 7.7#/6.0% x 6 days per EMR Status Active Problem Recommendation Dietitian Recommendations/Changes 1) Will increase bolus enteral nutrition support to 250mL Jevity 1.5 4x/day via PEG w/ 200mL H2O flush w/ each bolus to provide 1500 calories, 63.8 g protein, and 1560mL total fluid/day. 2) Regular diet if appropriate per GEOSPATIAL INTELLIGENCE ANALYST. Texture/consistency modifications per GEOSPATIAL INTELLIGENCE ANALYST. 3) Daily wts. Recommend close monitoring of electrolytes given risk for refeeding syndrome. Lab / Micro Data Result Diagrams: 08/15/21 04:25 08/15/21 04:25 Labs: Laboratory Results - last 24 hr 08/14/21 01:02: Magnesium Cancelled 08/14/21 01:10: Magnesium 2.1 08/14/21 : Fluid Glucose 96 H, Fluid Total Protein 2.3, Fluid LDH 93 08/14/21 : Fluid Source THORACENTESIS, Fluid Color YELLOW, Fluid Appearance SL CLDY, Fluid WBC 0.379, Fluid RBC 10, Fluid Tot Cell Count 0.409, Fld Polynuclear WBCs # 0.050, Fld Polynuclear WBCs % 13.2, Fluid Mononuclear WBCs 0.329, Fld Mononuclear WBCs % 86.8, Fluid Neutrophils 15, Fluid Lymphocytes 43, Fluid Monocytes 8, Fld Mesothelial Cells 1, Fluid Other Cells 33, Fl Pathologist Comment May follow, Fluid Comment 2 SEE COMMENT 08/15/21 04:25: WBC 5.5, RBC 2.63 L, Hgb 7.9 L, Hct 25.7 L, MCV 97.7 H, MCH 30.0, MCHC 30.7 L D, RDW Std Deviation 48.8 H, RDW Coeff of Vita 13.9, Plt Count 193, MPV 9.8, Immature Gran % (Auto) 0.700, Neut % (Auto) 78.0 H, Lymph % (Auto) 10.2 L, [place] % (Auto) 8.2, Eos % (Auto) 2.4, Baso % (Auto) 0.5, Absolute Neuts (auto) 4.3, Absolute Lymphs (auto) 0.56 L, Nucleated RBC % 0, Differential Comment SCANNED 08/15/21 04:25: Sodium 145, Potassium 3.6, Chloride 103, Carbon Dioxide 42.0 H, Anion Gap 0 L, BUN 24 H, Creatinine 1.05, Estim Creat Clear Calc 51.00, Est GFR (MDRD) Af Amer 90, Est GFR (MDRD) Non-Af 74, BUN/Creatinine Ratio 22.9 H, Glucose 132 H, Calcium 8.3 L Micro: Microbiology 08/14/21 Unknown Fluid - Thoracentesis Fluid Gram Stain - Final 08/13/21 18:30 Sputum, Induced/Lukens Gram Stain - Final 08/13/21 21:00 Urine, Clean Catch Legionella Antigen - Final 08/13/21 21:00 Urine, Clean Catch Streptococcus pneumoniae Antigen (M - Final 08/13/21 17:51 Mucosa - Nose Influenza Types A,B Direct FA (LU) - Final Radiography Diagnostic Testing: Radiology Impression Chest X-Ray 08/14/21 14:10 IMPRESSION: Tiny left apical pneumothorax from the left thoracocentesis. Electronically Signed: Juan Crum MD at 14:31 EST , Thoracentesis Ultrasound 08/14/21 18:02 IMPRESSION: Ultrasound-guided left thoracentesis. Electronically Signed: Juan Crum MD at 14:57 EST , Physical Exam Narrative Const alert and no apparent distress Constitutional Narrative: Minimally interactive and does not cooperate with care HEENT normocephalic and moist oral mucous membranes HEENT Narrative: Trach in place Eyes PERRL, EOMs intact bilaterally and conjunctivae normal Neck supple and no JVD Resp normal respiratory effort, no retractions and no use of accessory muscles Auscultation: diminished lung sounds; Negative for crackles, rales, rhonchi or wheezes Cardio regular rate, regular rhythm, S1 normal heart sound, S2 normal heart sound and no murmurs GI soft to palpation, non-tender and non-distended; Negative for hepatosplenomegaly Extremity no clubbing, cyanosis or edema Skin no rashes or lesions noted Neuro no focal motor deficits and no sensory deficits noted Psych Mood & Affect: flat affect Assessment & Plan Assessment/Plan (1) Acute on chronic respiratory failure with hypoxia and hypercapnia: PLAN: 1. Acute on chronic combined respiratory failure due to possibly mucous plugging shows his pleural effusion on the left -Recent prolonged hospitalization with empyema leading to tracheostomy tube and PEG, followed by prolonged hospitalization here for bob failure -Continues to refuse aspects of his care -Given his lack of compliance with interventions, will discuss the situation with his mother but ultimately will likely have to send [facility] to the [facility] and they will just have to deal with periodic episodes of hypoxia -Continue antimicrobials for 7 days total ?Continue with as needed Lasix -Continue aerosols ?Speech therapy was recommending a modified diet with pur?ed nectar thick liquid, during his last admission ?Thoracentesis with transudate 2. COPD not in exacerbation ?Stable ?Continue with inhalers and chronic steroids 3. Depression/anxiety ?He continues to appear apathetic and depressed ?We will continue with his BuSpar and Remeron ?He was started on Zoloft during his last admission, will increase to 100 mg 4. Chronic anemia ?Hemoglobin here is between 8 and 9 baseline is around 10 ?Fecal occult was ordered and pending 5. Severe protein calorie malnutrition DVT: Lovenox Charges/Coding Visit Charges Inpatient E&M: 46288 Subs Hosp L2
--- NOTE | 2021-08-15 09:58 | PN.CC_ITS ---
Assessment & Plan Assessment/Plan (1) Acute on chronic respiratory failure with hypoxia and hypercapnia: (2) Mucus plugging of bronchi: (3) Pleural effusion, right: PLAN: RECOMMENDATIONS: 1. Recommend AVAPS therapy via mask or trach with naps and nightly. 2. Continue supplemental oxygen throughout the day per baseline regimen. 3. No need for further work-up of pleural effusion 4. Okay to treat with antibiotics empirically for 48 hours pending culture results 5. Must cooperate with continue aerosol treatments along with aggressive bronchopulmonary hygiene. 6. Continued scheduled mucolytic therapy. 7. Consider attempting capping with nasal cannula IMPRESSIONS: 1. Acute combined on chronic hypoxemic respiratory failure The patient has a baseline medical history including COPD and chronic hypoxemic respiratory failure. Patient appears to be refusing tracheostomy care leading to complications of mucous plugging unclear if patient has a significant pleural effusion versus progressive atelectasis secondary to mucous plugging. Patient has responded well to aggressive pulmonary toileting. Clinical suspicio n the patient will continue to have complications if he refuses any trach care. Discussed at length with patient's mother about the necessity of pulmonary toileting to avoid future complications. Pleural effusion has a transudate pattern on laboratory testing. Likely not necessary to have additional testing for work-up. Clinical suspicion for low oncotic pressures with nutritional status adding to this issue. 2. Encephalopathy Resolved. Patient appears to be more uncooperative than encephalopathic at this time. The patient has not required any positive pressure support, but did have increased FiO2 demands. CT head was unremarkable during recent hospitalization. The patient will interact appropriately, but takes substantial stimulus. 3. Recent prolonged hospitalization with empyema leading to tracheostomy and PEG Continue supportive measures as noted above. Speech therapy recommended modified diet. Nutritional support via PEG tube can be entertained in the interim. Potassium repletion ordered for a PEG for hypokalemia when indicated. 4. History of COPD/paroxysmal atrial fibrillation/malnutrition/history of alcohol and tobacco dependency Complicates care, management, recovery and prognosis. Continue supportive measures as noted above. Physical therapy to evaluate the patient. Okay to discharge from my perspective with follow-up with primary [employer] consultant. Subjective Subjective Patient did okay overnight. Patient did have a thoracentesis with 1.2 L removed yesterday. Patient is not answering questions for me this morning, but readily makes eye contact and nods his head. Nursing reports patient has tolerated trach collar well. Objective Data Objective Data Vital Signs: Vital Signs Temp Pulse Resp BP Pulse Ox 36.6 C 72 22 H 132/60 H 90 08/15/21 09:26 08/15/21 09:26 08/15/21 09:26 08/15/21 09:26 08/15/21 09:26 Oxygen Flow Rate (L/min) [3] 8 Oxygen Flow Rate (L/min) [2] 8 Oxygen Flow Rate (L/min) [1 ( 8 Initial Baseline)] Oxygen Flow Rate (L/min) 15 Oxygen Delivery Method [3] Nasal Cannula Oxygen Delivery Method [2] Nasal Cannula Oxygen Delivery Method [1 ( Nasal Cannula Initial Baseline)] Oxygen Delivery Method High Flow Weight: 55.2 kg Body Mass Index (BMI) 17.6 Intake & Output: Intake and Output for Last 24 Hours 08/13/21 08/14/21 08/15/21 23:59 23:59 23:59 Intake Total 330 / 330 500 / 850 400 / 400 Output Total 1920 / 2070 500 / 500 Balance 330 / 30 -1420 / -1220 -100 / -100 Medical Nutrition Assessment Dietitian: Malnutrition Criteria Met Start: 08/14/21 10:16 Freq: Status: Active Protocol: Document 08/14/21 10:54 (Rec: 08/14/21 10:54 [id number]) Nutrition Malnutrition Evidence of Malnutrition Exists Yes Malnutrition (severe): Chronic Evidenced By Suboptimal Energy Intake ( Severe),Weight Loss (Severe), Physical Changes (Severe) Clinical Problem Chronic Disease or Condition Related Malnutrition Etiology severe, chronic malnutrition r /t inadequate energy intake d/ t swallowing difficulty, increased energy needs d/t chronic resp. failure Signs/Symptoms as evidenced by estimated PO intake meeting <75% of estimated energy needs >3 months; obvious signs of severe muscle/fat wasting in the face, orbital and temporal regions per physical exam; BMI 17.7; apparent wt loss of 7.7#/6.0% x 6 days per EMR Status Active Problem Recommendation Dietitian Recommendations/Changes 1) Will increase bolus enteral nutrition support to 250mL Jevity 1.5 4x/day via PEG w/ 200mL H2O flush w/ each bolus to provide 1500 calories, 63.8 g protein, and 1560mL total fluid/day. 2) Regular diet if appropriate per MEDICAL IMAGING TECHNICIAN. Texture/consistency modifications per MEDICAL IMAGING TECHNICIAN. 3) Daily wts. Recommend close monitoring of electrolytes given risk for refeeding syndrome. Lab / Micro Data Result Diagrams: 08/15/21 04:25 08/15/21 04:25 Labs: Laboratory Results - last 24 hr 08/14/21 01:02: Magnesium Cancelled 08/14/21 01:10: Magnesium 2.1 08/14/21 : Fluid Glucose 96 H, Fluid Total Protein 2.3, Fluid LDH 93 08/14/21 : Fluid Source THORACENTESIS, Fluid Color YELLOW, Fluid Appearance SL CLDY, Fluid WBC 0.379, Fluid RBC 10, Fluid Tot Cell Count 0.409, Fld Polynuclear WBCs # 0.050, Fld Polynuclear WBCs % 13.2, Fluid Mononuclear WBCs 0.329, Fld M ononuclear WBCs % 86.8, Fluid Neutrophils 15, Fluid Lymphocytes 43, Fluid Monocytes 8, Fld Mesothelial Cells 1, Fluid Other Cells 33, Fl Pathologist Comment May follow, Fluid Comment 2 SEE COMMENT 08/15/21 04:25: WBC 5.5, RBC 2.63 L, Hgb 7.9 L, Hct 25.7 L, MCV 97.7 H, MCH 30.0, MCHC 30.7 L D, RDW Std Deviation 48.8 H, RDW Coeff of Vita 13.9, Plt Count 193, MPV 9.8, Immature Gran % (Auto) 0.700, Neut % (Auto) 78.0 H, Lymph % (Auto) 10.2 L, [place] % (Auto) 8.2, Eos % (Auto) 2.4, Baso % (Auto) 0.5, Absolute Neuts (auto) 4.3, Absolute Lymphs (auto) 0.56 L, Nucleated RBC % 0, Differential Comment SCANNED 08/15/21 04:25: Sodium 145, Potassium 3.6, Chloride 103, Carbon Dioxide 42.0 H, Anion Gap 0 L, BUN 24 H, Creatinine 1.05, Estim Creat Clear Calc 51.00, Est GFR (MDRD) Af Amer 90, Est GFR (MDRD) Non-Af 74, BUN/Creatinine Ratio 22.9 H, Gluco se 132 H, Calcium 8.3 L Micro: Microbiology 08/14/21 Unknown Fluid - Thoracentesis Fluid Gram Stain - Final 08/13/21 18:30 Sputum, Induced/Lukens Gram Stain - Final 08/13/21 21:00 Urine, Clean Catch Legionella Antigen - Final 08/13/21 21:00 Urine, Clean Catch Streptococcus pneumoniae Antigen (M - Final 08/13/21 17:51 Mucosa - Nose Influenza Types A,B Direct FA (LU) - Final Radiography Diagnostic Testing: Radiology Impression Chest X-Ray 08/14/21 14:10 IMPRESSION: Tiny left apical pneumothorax from the left thoracocentesis. Electronically Signed: Juan Crum MD at 14:31 EST , Thoracentesis Ultrasound 08/14/21 18:02 IMPRESSION: Ultrasound-guided left thoracentesis. Electronically Signed: Juan Crum MD at 14:57 EST , Physical Exam Const alert and no apparent distress General Appearance: cooperative and frail HEENT normocephalic and head/scalp atraumatic Eyes PERRL, EOMs intact bilaterally and conjunctivae normal Neck supple Neck Narrative: Tracheostomy site is C/D/I. No attempt at vocalization during my interaction. Trach mask in place. General: trachea midline Chest inspection of chest normal Resp Auscultation: diminished lung sounds; Negative for rales, rhonchi or wheezes Cardio regular rate, regular rhythm, no murmurs, no rub and no gallops GI normal to inspection, nondistended, normoactive bowel sounds Inspection: GI tube present Extremity no clubbing, cyanosis or edema Skin no rashes or lesions noted Neuro CN's II-XII intact bilaterally and no focal motor deficits Psych cooperative and affect normal Charges/Coding Visit Charges Inpatient E&M: 71504 Subs Hosp L2
--- NOTE | 2021-08-15 12:39 | NURSING ---
This RN attempted to give bolus tube feeding multiple times, pt. continues to refuse.
[2021-08-15] MEDS: Jevity 1.5. 1,000 ML Bottle 250 ML GT ×2 (12:45→17:35)
--- NOTE | 2021-08-15 23:37 | NURSING ---
22:20 Pt allowed this nurse to suction him at this time. Sp02 84% before suctioning and 92% after suctioning. No concerns during this time call light within reach.
[2021-08-16] VITALS (12 sets, daily range): BP systolic 122–143; BP diastolic 57–72; PULSE 65–87; RESP 12–24; TEMP 36.6–37.6; O2SAT 90–98
[2021-08-16 05:30] LABS: Absolute Lymphocyte Count 0.64 X10^3/uL (0.83-4.51); Absolute Neutrophil Count 4.5 X10^3/uL (2.0-7.7); Basophil# 0.03 X10^3/uL; Basophil% 0.5 % (0-1); Eosinophils% 3.4 % (0-5); Hematocrit 24.2 % (40-54); Hemoglobin 7.7 g/dL (13.0-16.5); Lymphocyte # 0.64 X10^3/ul (0.83-4.51); Lymphocyte % 10.9 % (19-41); Mean Corp Hgb Conc 31.8 g/dL (32-36); Mean Corpuscular Hgb 30.9 pg (27.0-32.0); Mean Corpuscular Volume 97.2 fL (80-94); Mean Platelet Vol. 9.1 fl (6.2-12.0); Monocyte# 0.52 X10^3/uL; Monocyte% 8.8 % (0-10); NRBC Flagged by Analyzer 0 % (0-5); Neutrophil # 4.46 X10^3/uL (2.7-7.7); Neutrophil % 75.9 % (47-70); Platelet Count 177 K/mm3 (150-450); RBC Distribution Width CV 13.7 % (11.6-14.6); RBC Distribution Width SD 49.1 fl (35.1-43.9); Red Blood Count 2.49 M/mm3 (4.6-6.2); White Blood Count 5.9 K/mm3 (4.4-11.0)
[2021-08-16 06:03] LABS: Anion Gap 0 (5-15); BUN 21 mg/dL (7-18); BUN/Creat Ratio 24.2 RATIO (10-20); Calcium,Total 8.3 mg/dL (8.5-10.1); Chloride 104 mmol/L (98-107); Creatinine, Serum 0.87 mg/dL (0.70-1.30); EST Glomerular Filtration Rate 93 mL/min (>60); Est Glom Filt Rate - Afr Amer 112 mL/min (>60); Estimated Creatinine Clearance 62.57 ml/min; Glucose 94 mg/dL (74-106); Potassium 3.5 mmol/L (3.5-5.1); Sodium Level 146 mmol/L (136-145)
--- NOTE | 2021-08-16 06:27 | NURSING ---
This RN observed pt's 02 desats at 89% on 15L highflow. LS dim. Suctioned three times w/ no improvements. Called RT, suctioned more still no improvement and cont to desat. Pt switched to bipap at this time, o2 sats at 97%.
--- NOTE | 2021-08-16 08:57 | PN.CC_ITS ---
Assessment & Plan Assessment/Plan (1) Acute on chronic respiratory failure with hypoxia and hypercapnia: (2) Mucus plugging of bronchi: (3) Pleural effusion, right: PLAN: RECOMMENDATIONS: 1. Recommend AVAPS therapy via mask or trach with naps and nightly. 2. Continue supplemental oxygen throughout the day per baseline regimen. 3. Obtain chest x-ray 4. Will need 7 days of antibiotics for Klebsiella pneumonia. Okay to narrow antibiotic spectrum once culture finalized 5. Must cooperate with continue aerosol treatments along with aggressive bronchopulmonary hygiene. 6. Continued scheduled mucolytic therapy. 7. Consider attempting capping with nasal cannula IMPRESSIONS: 1. Acute combined on chronic hypoxemic respiratory failure secondary to Klebsiella pneumonia and pleural effusion The patient has a baseline medical history including COPD and chronic hypoxemic respiratory failure. Patient appears to be refusing tracheostomy care leading to complications of mucous plugging unclear if patient has a significant pleural effusion versus progressive atelectasis secondary to mucous plugging. Patient has responded well to aggressive pulmonary toileting. Clinical suspicion the patient will continue to have complications if he refuses any trach care. Discussed at length with patient's mother about the necessity of pulmonary toileting to avoid future complications. Pleural effusion has a transudate pattern on laboratory testing. Patient is now growing Klebsiella pneumonia. Patient has another bacteria currently on culture that has not been elicited yet. Okay to continue broad-spectrum antibiotics for now, but patient will need to 7 days of antibiotics. 2. Encephalopathy Resolved. Patient appears to be more uncooperative than encephalopathic at this time. The patient has not required any positive pressure support, but did have increased FiO2 demands. CT head was unremarkable during recent hospitalization. The patient will interact appropriately, but takes substantial stimulus. 3. Recent prolonged hospitalization with empyema leading to tracheostomy and PEG Continue supportive measures as noted above. Speech therapy recommended modified diet. Nutritional support via PEG tube can be entertained in the interim. Potassium repletion ordered for a PEG for hypokalemia when indicated. Repeat thoracentesis is suggestive of a transudate pattern, so likelihood of recurrent empyema is extremely low. 4. History of COPD/paroxysmal atrial fibrillation/malnutrition/history of alcohol and tobacco dependency Complicates care, management, recovery and prognosis. Continue supportive measures as noted above. Physical therapy to evaluate the patient. Subjective Subjective No acute issues reported overnight as patient was on BiPAP therapy with sleep. However, patient reportedly was placed back on BiPAP secondary to desaturation this morning. Patient not interactive and not answering questions, but readily opens his eyes and makes eye contact. Objective Data Objective Data Vital Signs: Vital Signs Temp Pulse Resp BP Pulse Ox 36.6 C 67 16 130/72 H 98 08/16/21 06:33 08/16/21 06:57 08/16/21 06:33 08/16/21 06:33 08/16/21 06:33 Oxygen Flow Rate (L/min) [3] 8 Oxygen Flow Rate (L/min) [2] 8 Oxygen Flow Rate (L/min) [1 ( 8 Initial Baseline)] Oxygen Flow Rate (L/min) 15 Oxygen Delivery Method [3] Nasal Cannula Oxygen Delivery Method [2] Nasal Cannula Oxygen Delivery Method [1 ( Nasal Cannula Initial Baseline)] Oxygen Delivery Method Bi-pap Weight: 55 kg Body Mass Index (BMI) 17.6 Intake & Output: Intake and Output for Last 24 Hours 08/14/21 08/15/21 08/16/21 23:59 23:59 23:59 Intake Total 500 / 850 500 / 500 50 / 50 Output Total 1920 / 2070 1000 / 1000 400 / 400 Balance -1420 / -1220 -500 / -500 -350 / -350 Medical Nutrition Assessment Dietitian: Malnutrition Criteria Met Start: 08/14/21 10:16 Freq: Status: Active Protocol: Document 08/14/21 10:54 (Rec: 08/14/21 10:54 [id number]) Nutrition Malnutrition Evidence of Malnutrition Exists Yes Malnutrition (severe): Chronic Evidenced By Suboptimal Energy Intake ( Severe),Weight Loss (Severe), Physical Changes (Severe) Clinical Problem Chronic Disease or Condition Related Malnutrition Etiology severe, chronic malnutrition r /t inadequate energy intake d/ t swallowing difficulty, increased energy needs d/t chronic resp. failure Signs/Symptoms as evidenced by estimated PO intake meeting <75% of estimated energy needs >3 months; obvious signs of severe muscle/fat wasting in the face, orbital and temporal regions per physical exam; BMI 17.7; apparent wt loss of 7.7#/6.0% x 6 days per EMR Status Active Problem Recommendation Dietitian Recommendations/Changes 1) Will increase bolus enteral nutrition support to 250mL Jevity 1.5 4x/day via PEG w/ 200mL H2O flush w/ each bolus to provide 1500 calories, 63.8 g protein, and 1560mL total fluid/day. 2) Regular diet if appropriate per PULLMAN CAR REPAIRER. Texture/consistency modifications per PULLMAN CAR REPAIRER. 3) Daily wts. Recommend close monitoring of electrolytes given risk for refeeding syndrome. Lab / Micro Data Result Diagrams: 08/16/21 05:21 08/16/21 05:21 Labs: Laboratory Results - last 24 hr 08/16/21 05:21: WBC 5.9, RBC 2.49 L, Hgb 7.7 L, Hct 24.2 L, MCV 97.2 H, MCH 30.9, MCHC 31.8 L, RDW Std Deviation 49.1 H, RDW Coeff of Vita 13.7, Plt Count 177, MPV 9.1, Immature Gran % (Auto) 0.500, Neut % (Auto) 75.9 H, Lymph % (Auto) 10.9 L, [place] % (Auto) 8.8, Eos % (Auto) 3.4, Baso % (Auto) 0.5, Absolute Neuts (auto) 4.5, Absolute Lymphs (auto) 0.64 L, Nucleated RBC % 0 08/16/21 05:21: Sodium 146 H, Potassium 3.5, Chloride 104, Carbon Dioxide 42.0 H , Anion Gap 0 L, BUN 21 H, Creatinine 0.87, Estim Creat Clear Calc 62.57, Est GFR (MDRD) Af Amer 112, Est GFR (MDRD) Non-Af 93, BUN/Creatinine Ratio 24.2 H, Glucose 94, Calcium 8.3 L Micro: Microbiology 08/13/21 21:00 Urine, Clean Catch Legionella Antigen - Final 08/13/21 21:00 Urine, Clean Catch Streptococcus pneumoniae Antigen (M - Final 08/13/21 18:30 Sputum, Induced/Lukens Gram Stain - Final 08/13/21 18:30 Sputum, Induced/Lukens Respiratory Culture - Final Klebsiella pneumoniae sp pneum Gram positive joann 08/14/21 Unknown Fluid - Thoracentesis Fluid Gram Stain - Final 08/14/21 Unknown Fluid - Thoracentesis Fluid Body Fluid Culture - Preliminary No growth-Final to follow 08/13/21 17:51 Mucosa - Nose Influenza Types A,B Direct FA (LU) - Final Physical Exam Const alert and no apparent distress General Appearance: cooperative and frail HEENT normocephalic and head/scalp atraumatic Eyes PERRL, EOMs intact bilaterally and conjunctivae normal Neck supple Neck Narrative: Tracheostomy site is C/D/I. No attempt at vocalization during my interaction. Trach mask in place. General: trachea midline Chest inspection of chest normal Resp Resp Narrative: Significantly decreased breath sounds on the left side compared to yesterday Auscultation: diminished lung sounds; Negative for rales, rhonchi or wheezes Cardio regular rate, regular rhythm, no murmurs, no rub and no gallops GI normal to inspection, nondistended, normoactive bowel sounds Inspection: GI tube present Extremity no clubbing, cyanosis or edema Skin no rashes or lesions noted Neuro CN's II-XII intact bilaterally and no focal motor deficits Psych cooperative and affect normal Charges/Coding Visit Charges Inpatient E&M: 83766 Subs Hosp L3
[2021-08-16] MEDS: Sertraline 100 MG Tablet PO (09:24)
[2021-08-16] MEDS: Jevity 1.5. 1,000 ML Bottle 250 ML GT ×2 (09:24→21:53)
[2021-08-16] MEDS: Enoxaparin 30 MG/0.3 ML Syringe SC (09:24)
[2021-08-16] MEDS: Famotidine 20 MG Tablet PO ×2 (09:24→21:54)
--- NOTE | 2021-08-16 09:45 | RAD_ITS ---
STUDY: X-RAY CHEST REASON FOR EXAM: Male, 70 years old. Hypoxia TECHNIQUE: Single AP portable view of the chest. COMPARISON: Comparison is made with prior study dated 08/14/2021. FINDINGS: A tracheostomy tube is in situ. This is unchanged. Residual small to moderate sized left pleural effusion. Findings suggestive of bibasilar scarring. Residual blunting of the right costophrenic angle. Normal size heart. Normal mediastinum and genaro. Normal visualized pulmonary arteries. Normal visualized aortic arch and descending thoracic aorta. There are diffuse degenerative changes of the visualized thoracic spine. Normal visualized ribs, clavicles, and shoulders. There is no demonstrated abnormality of the visualized soft tissue structures of the upper abdomen. RAD/Chest 1 View (Portable) IMPRESSION: Left pleural effusion with left basilar atelectasis and/or infiltrate. Stable scarring at the lung bases. Electronically Signed: Juan Crum MD at 14:10 EST ,
--- NOTE | 2021-08-16 11:15 | PN.HOSP_ITS ---
Subjective Subjective No issues overnight, still refuses some trach care and tube feeds at times. He did tolerate the BiPAP overnight and into this morning. Continues to refuse to interact or answer any questions Objective Data Objective Data Vital Signs: Vital Signs Temp Pulse Resp BP Pulse Ox 97.9 F 67 16 130/72 H 93 08/16/21 06:33 08/16/21 06:57 08/16/21 06:33 08/16/21 06:33 08/16/21 10:55 Oxygen Flow Rate (L/min) [3] 8 Oxygen Flow Rate (L/min) [2] 8 Oxygen Flow Rate (L/min) [1 ( 8 Initial Baseline)] Oxygen Flow Rate (L/min) 15 Oxygen Delivery Method [3] Nasal Cannula Oxygen Delivery Method [2] Nasal Cannula Oxygen Delivery Method [1 ( Nasal Cannula Initial Baseline)] Oxygen Delivery Method Nasal Cannula Weight: 121 lb 4.068 oz Body Mass Index (BMI) 17.6 Intake & Output: Intake and Output for Last 24 Hours 08/15/21 08/16/21 08/17/21 03:59 03:59 03:59 Intake Total 850 / 850 150 / 150 250 / 250 Output Total 1770 / 1770 850 / 850 400 / 400 Balance -920 / -920 -700 / -700 -150 / -150 Medical Nutrition Assessment Dietitian: Malnutrition Criteria Met Start: 08/14/21 10:16 Freq: Status: Active Protocol: Document 08/14/21 10:54 (Rec: 08/14/21 10:54 [id number]) Nutrition Malnutrition Evidence of Malnutrition Exists Yes Malnutrition (severe): Chronic Evidenced By Suboptimal Energy Intake ( Severe),Weight Loss (Severe), Physical Changes (Severe) Clinical Problem Chronic Disease or Condition Related Malnutrition Etiology severe, chronic malnutrition r /t inadequate energy intake d/ t swallowing difficulty, increased energy needs d/t chronic resp. failure Signs/Symptoms as evidenced by estimated PO intake meeting <75% of estimated energy needs >3 months; obvious signs of severe muscle/fat wasting in the face, orbital and temporal regions per physical exam; BMI 17.7; apparent wt loss of 7.7#/6.0% x 6 days per EMR Status Active Problem Recommendation Dietitian Recommendations/Changes 1) Will increase bolus enteral nutrition support to 250mL Jevity 1.5 4x/day via PEG w/ 200mL H2O flush w/ each bolus to provide 1500 calories, 63.8 g protein, and 1560mL total fluid/day. 2) Regular diet if appropriate per AUTOCAD DRAFTSMAN. Texture/consistency modifications per AUTOCAD DRAFTSMAN. 3) Daily wts. Recommend close monitoring of electrolytes given risk for refeeding syndrome. Lab / Micro Data Result Diagrams: 08/16/21 05:21 08/16/21 05:21 Labs: Laboratory Results - last 24 hr 08/16/21 05:21: WBC 5.9, RBC 2.49 L, Hgb 7.7 L, Hct 24.2 L, MCV 97.2 H, MCH 30.9, MCHC 31.8 L, RDW Std Deviation 49.1 H, RDW Coeff of Vita 13.7, Plt Count 177, MPV 9.1, Immature Gran % (Auto) 0.500, Neut % (Auto) 75.9 H, Lymph % (Auto) 10.9 L, [place] % (Auto) 8.8, Eos % (Auto) 3.4, Baso % (Auto) 0.5, Absolute Neuts (auto) 4.5, Absolute Lymphs (auto) 0.64 L, Nucleated RBC % 0 08/16/21 05:21: Sodium 146 H, Potassium 3.5, Chloride 104, Carbon Dioxide 42.0 H , Anion Gap 0 L, BUN 21 H, Creatinine 0.87, Estim Creat Clear Calc 62.57, Est GFR (MDRD) Af Amer 112, Est GFR (MDRD) Non-Af 93, BUN/Creatinine Ratio 24.2 H, Glucose 94, Calcium 8.3 L Micro: Microbiology 08/14/21 01:10 Blood Culture (Wb) - Left Hand Blood Culture - Preliminary No growth in 48 hours. 08/14/21 01:02 Blood Culture (Wb) - Anticubital Right Blood Culture - Preliminary No growth in 48 hours. 08/14/21 Unknown Fluid - Thoracentesis Fluid Gram Stain - Final 08/14/21 Unknown Fluid - Thoracentesis Fluid Body Fluid Culture - Preliminary No growth-Final to follow 08/14/21 Unknown Fluid - Thoracentesis Fluid Anaerobic Culture - Preliminary No growth in 48 hours. 08/13/21 21:00 Urine, Clean Catch Legionella Antigen - Final 08/13/21 21:00 Urine, Clean Catch Streptococcus pneumoniae Antigen (M - Final 08/13/21 18:30 Sputum, Induced/Lukens Gram Stain - Final 08/13/21 18:30 Sputum, Induced/Lukens Respiratory Culture - Final Klebsiella pneumoniae sp pneum Gram positive joann 08/13/21 17:51 Mucosa - Nose Influenza Types A,B Direct FA (LU) - Final Physical Exam Narrative Const alert and no apparent distress Constitutional Narrative: Minimally interactive and does not cooperate with care HEENT normocephalic and moist oral mucous membranes HEENT Narrative: Trach in place Eyes PERRL, EOMs intact bilaterally and conjunctivae normal Neck supple and no JVD Resp normal respiratory effort, no retractions and no use of accessory muscles Auscultation: diminished lung sounds; Negative for crackles, rales, rhonchi or wheezes Cardio regular rate, regular rhythm, S1 normal heart sound, S2 normal heart sound and no murmurs GI soft to palpation, non-tender and non-distended; Negative for hepatosplenomegaly Extremity no clubbing, cyanosis or edema Skin no rashes or lesions noted Neuro no focal motor deficits and no sensory deficits noted Psych Mood & Affect: flat affect Assessment & Plan Assessment/Plan (1) Acute on chronic respiratory failure with hypoxia and hypercapnia: PLAN: 1. Acute on chronic combined respiratory failure due to possibly mucous plugging with Klebsiella pneumonia and pleural effusion on the left -Recent prolonged hospitalization with empyema leading to tracheostomy tube and PEG, followed by prolonged hospitalization here for bob failure -Continues to refuse aspects of his care -Given his lack of compliance with interventions, will discuss the situation with his mother but ultimately will likely have to [facility] to the [facility] and they will just have to deal with periodic episodes of hypoxia ?He does not seem to understand or care about the need for an active role in his own wellbeing -Continue antimicrobials for 7 days total, his Klebsiella pneumonia in the sputum culture is sensitive to Zosyn ?Continue with as needed Lasix -Continue aerosols ?Speech therapy was recommending a modified diet with pur?ed nectar thick liquid, during his last admission ?Thoracentesis with transudate 2. COPD not in exacerbation ?Stable ?Continue with inhalers and chronic steroids 3. Depression/anxiety ?He continues to appear apathetic and depressed ?We will continue with his BuSpar and Remeron ?He was started on Zoloft during his last admission, will increase to 100 mg 4. Chronic anemia ?Hemoglobin here is between 8 and 9 baseline is around 10 ?Fecal occult was ordered and pending ?Continue to monitor, his hemoglobin 5. Severe protein calorie malnutrition DVT: Lovenox Charges/Coding Visit Charges Inpatient E&M: 39553 Subs Hosp L2
[2021-08-16 12:49] LABS: Pathologist Comment/Body Fluid Reviewed
--- NOTE | 2021-08-16 13:37 | CASEMGMT ---
SW faxed updates to [facility]. Rachel Rubalcava PIPELINE GANG SUPERVISOR LOCKER ROOM ATTENDANT
[2021-08-16] MEDS: Mirtazapine 15 MG Tablet 7.5 MG PO (21:53)
[2021-08-17] VITALS (22 sets, daily range): BP systolic 105–147; BP diastolic 48–73; PULSE 62–86; RESP 12–30; TEMP 36.6–37.7; O2SAT 85–100
--- NOTE | 2021-08-17 00:06 | NURSING ---
Pt on 15 L HFNC, sats 79-87%. Pt educated on importance of going back on the BIPAP, but refused. This RN had a lengthy discussion w/ pt regarding why he didn't want to wear the BIPAP but pt continued to refuse. Pt aware of consequences of not wearing the BIPAP and having his O2 drop.
[2021-08-17 05:45] LABS: Absolute Lymphocyte Count 0.61 X10^3/uL (0.83-4.51); Basophil# 0.02 X10^3/uL; Basophil% 0.4 % (0-1); Eosinophil# 0.13 X10^3/uL; Eosinophils% 2.4 % (0-5); Hematocrit 24.3 % (40-54); Hemoglobin 7.7 g/dL (13.0-16.5); Lymphocyte # 0.61 X10^3/ul (0.83-4.51); Lymphocyte % 11.4 % (19-41); Mean Corp Hgb Conc 31.7 g/dL (32-36); Mean Corpuscular Hgb 31.4 pg (27.0-32.0); Mean Corpuscular Volume 99.2 fL (80-94); Mean Platelet Vol. 9.8 fl (6.2-12.0); Monocyte# 0.51 X10^3/uL; Monocyte% 9.5 % (0-10); NRBC Flagged by Analyzer 0 % (0-5); Neutrophil # 4.04 X10^3/uL (2.7-7.7); Neutrophil % 75.6 % (47-70); Platelet Count 182 K/mm3 (150-450); RBC Distribution Width CV 13.7 % (11.6-14.6); RBC Distribution Width SD 48.9 fl (35.1-43.9); Red Blood Count 2.45 M/mm3 (4.6-6.2); White Blood Count 5.4 K/mm3 (4.4-11.0)
[2021-08-17 06:11] LABS: Anion Gap 1 (5-15); BUN 23 mg/dL (7-18); BUN/Creat Ratio 25.2 RATIO (10-20); Calcium,Total 8.3 mg/dL (8.5-10.1); Chloride 105 mmol/L (98-107); Creatinine, Serum 0.91 mg/dL (0.70-1.30); EST Glomerular Filtration Rate 87 mL/min (>60); Est Glom Filt Rate - Afr Amer 106 mL/min (>60); Glucose 95 mg/dL (74-106); Potassium 3.3 mmol/L (3.5-5.1); Sodium Level 148 mmol/L (136-145)
--- NOTE | 2021-08-17 07:26 | US_ITS ---
PROCEDURE: ULTRASOUND GUIDED THORACENTESIS. DATE: 08/17/2021.. INDICATION: Male, 70 years old. Left pleural effusion. PHYSICIAN: Juan Crum M.D. PROCEDURE: The risks, benefits, and alternatives to the procedure were explained to the patient. The specific risks of bleeding, infection, and pneumothorax requiring chest tube insertion were discussed and accepted. Written informed consent was obtained. Ultrasonographic evaluation of the left lower pleural space was carried out. An adequate pocket was identified. The patient was placed in the sitting, upright position. The overlying skin was prepped and draped in sterile fashion. 1% lidocaine was administered subcutaneously for local anesthesia. Under ultrasound guidance, a 5French thoracentesis needle/catheter system was advanced into the left posterior lower pleural fluid collection. Approximately 1200 mL of blood tinged fluid was drained. The catheter was removed, and a sterile dressing was applied. The patient tolerated the procedure well. A chest x-ray was ordered. US/Thoracentesis W US IMPRESSION: Ultrasound-guided left thoracentesis. Electronically Signed: Juan Crum MD at 14:39 EST ,
--- NOTE | 2021-08-17 07:27 | PN.CC_ITS ---
Assessment & Plan Assessment/Plan (1) Acute on chronic respiratory failure with hypoxia and hypercapnia: (2) Mucus plugging of bronchi: (3) Pleural effusion, right: PLAN: RECOMMENDATIONS: 1. Recommend AVAPS therapy via mask or trach with naps and nightly. 2. Continue supplemental oxygen throughout the day per baseline regimen. 3. Obtain therapeutic thoracentesis on the left 4. Will need 7 days of antibiotics for Klebsiella pneumonia. Okay to narrow antibiotic spectrum once culture finalized 5. Must cooperate with continue aerosol treatments along with aggressive bronchopulmonary hygiene. 6. Continued scheduled mucolytic therapy. 7. Consider attempting capping with nasal cannula IMPRESSIONS: 1. Acute combined on chronic hypoxemic respiratory failure secondary to Klebsiella pneumonia and pleural effusion The patient has a baseline medical history including COPD and chronic hypoxemic respiratory failure. Patient appears to be refusing tracheostomy care leading to complications of mucous plugging unclear if patient has a significant pleural effusion versus progressive atelectasis secondary to mucous plugging. Patient has responded well to aggressive pulmonary toileting. Clinical suspicion the patient will continue to have complications if he refuses any trach care. Discussed at length with patient's mother about the necessity of pulmonary toileting to avoid future complications. Pleural effusion has a transudate pattern on laboratory testing. Patient is now growing Klebsiella pneumonia. Patient has another bacteria currently on culture that has not been elicited yet. Okay to continue broad-spectrum antibiotics for now, but patient will need to 7 days of antibiotics. Patient with recurrent pleural effusion on the left. Will tap for improvement in oxygenation and also to avoid gant slocation of bacteria given positive sputum culture. 2. Encephalopathy Resolved. Patient appears to be more uncooperative than encephalopathic at this time. The patient has not required any positive pressure support, but did have increased FiO2 demands. CT head was unremarkable during recent hospitalization. The patient will interact appropriately, but takes substantial stimulus. 3. Recent prolonged hospitalization with empyema leading to tracheostomy and PEG Continue supportive measures as noted above. Speech therapy recommended modified diet. Nutritional support via PEG tube can be entertained in the interim. Potassium repletion ordered for a PEG for hypokalemia when indicated. Repeat thoracentesis is suggestive of a transudate pattern, so likelihood of recurrent empyema is extremely low. No need to repeat testing at this time given lack of fever and leukocytosis. 4. History of COPD/paroxysmal atrial fibrillation/malnutrition/history of alcohol and tobacco dependency Complicates care, management, recovery and prognosis. Continue supportive measures as noted above. Physical therapy to evaluate the patient. Subjective Subjective Patient did okay overnight. No acute issues were reported. Patient has been u sing BiPAP with sleep and tolerating well. Patient still requiring higher FiO2. Patient not answering questions for me this morning, but does make eye contact. Objective Data Objective Data Vital Signs: Vital Signs Temp Pulse Resp BP Pulse Ox 36.8 C 67 17 121/66 H 96 08/17/21 04:00 08/17/21 04:38 08/17/21 04:38 08/17/21 04:00 08/17/21 04:38 Oxygen Flow Rate (L/min) [3] 8 Oxygen Flow Rate (L/min) [2] 8 Oxygen Flow Rate (L/min) [1 ( 8 Initial Baseline)] Oxygen Flow Rate (L/min) 15 Oxygen Delivery Method [3] Nasal Cannula Oxygen Delivery Method [2] Nasal Cannula Oxygen Delivery Method [1 ( Nasal Cannula Initial Baseline)] Oxygen Delivery Method Bi-pap Weight: 53.2 kg Body Mass Index (BMI) 17.6 Intake & Output: Intake and Output for Last 24 Hours 08/15/21 08/16/21 08/17/21 23:59 23:59 23:59 Intake Total 500 / 500 850 / 850 50.75 / 50.75 Output Total 1000 / 1000 700 / 850 400 / 400 Balance -500 / -500 150 / 0 -349.25 / -349.25 Medical Nutrition Assessment Dietitian: Malnutrition Criteria Met Start: 08/14/21 10:16 Freq: Status: Active Protocol: Document 08/14/21 10:54 (Rec: 08/14/21 10:54 [id number]) Nutrition Malnutrition Evidence of Malnutrition Exists Yes Malnutrition (severe): Chronic Evidenced By Suboptimal Energy Intake ( Severe),Weight Loss (Severe), Physical Changes (Severe) Clinical Problem Chronic Disease or Condition Related Malnutrition Etiology severe, chronic malnutrition r /t inadequate energy intake d/ t swallowing difficulty, increased energy needs d/t chronic resp. failure Signs/Symptoms as evidenced by estimated PO intake meeting <75% of estimated energy needs >3 months; obvious signs of severe muscle/fat wasting in the face, orbital and temporal regions per physical exam; BMI 17.7; apparent wt loss of 7.7#/6.0% x 6 days per EMR Status Active Problem Recommendation Dietitian Recommendations/Changes 1) Will increase bolus enteral nutrition support to 250mL Jevity 1.5 4x/day via PEG w/ 200mL H2O flush w/ each bolus to provide 1500 calories, 63.8 g protein, and 1560mL total fluid/day. 2) Regular diet if appropriate per BURRING MACHINE OPERATOR. Texture/consistency modifications per BURRING MACHINE OPERATOR. 3) Daily wts. Recommend close monitoring of electrolytes given risk for refeeding syndrome. Lab / Micro Data Result Diagrams: 08/17/21 05:27 08/17/21 05:27 Labs: Laboratory Results - last 24 hr 08/14/21 : Fl Pathologist Comment Reviewed 08/17/21 05:27: WBC 5.4, RBC 2.45 L, Hgb 7.7 L, Hct 24.3 L, MCV 99.2 H, MCH 31.4, MCHC 31.7 L, RDW Std Deviation 48.9 H, RDW Coeff of Vita 13.7, Plt Count 182, MPV 9.8, Immature Gran % (Auto) 0.700, Neut % (Auto) 75.6 H, Lymph % (Auto) 11.4 L, [place] % (Auto) 9.5, Eos % (Auto) 2.4, Baso % (Auto) 0.4, Absolute Neuts (auto) 4.0, Absolute Lymphs (auto) 0.61 L, Nucleated RBC % 0 08/17/21 05:27: Sodium 148 H, Potassium 3.3 L, Chloride 105, Carbon Dioxide 42.0 H, Anion Gap 1 L, BUN 23 H, Creatinine 0.91, Estim Creat Clear Calc 59.60, Est GFR (MDRD) Af Amer 106, Est GFR (MDRD) Non-Af 87, BUN/Creatinine Ratio 25.2 H, Glucose 95, Calcium 8.3 L Micro: Microbiology 08/14/21 01:10 Blood Culture (Wb) - Left Hand Blood Culture - Preliminary No growth in 48 hours. 08/14/21 01:02 Blood Culture (Wb) - Anticubital Right Blood Culture - Preliminary No growth in 48 hours. 08/14/21 Unknown Fluid - Thoracentesis Fluid Gram Stain - Final 08/14/21 Unknown Fluid - Thoracentesis Fluid Body Fluid Culture - Preliminary No growth-Final to follow 08/14/21 Unknown Fluid - Thoracentesis Fluid Anaerobic Culture - Preliminary No growth in 48 hours. 08/13/21 21:00 Urine, Clean Catch Legionella Antigen - Final 08/13/21 21:00 Urine, Clean Catch Streptococcus pneumoniae Antigen (M - Final 08/13/21 18:30 Sputum, Induced/Lukens Gram Stain - Final 08/13/21 18:30 Sputum, Induced/Lukens Respiratory Culture - Final Klebsiella pneumoniae sp pneum Gram positive joann 08/13/21 17:51 Mucosa - Nose Influenza Types A,B Direct FA (LU) - Final Radiography Diagnostic Testing: Radiology Impression Chest X-Ray 08/16/21 09:45 IMPRESSION: Left pleural effusion with left basilar atelectasis and/or infiltrate. Stable scarring at the lung bases. Electronically Signed: Juan Crum MD at 14:10 EST , Physical Exam Const alert and no apparent distress General Appearance: cooperative and frail HEENT normocephalic and head/scalp atraumatic Eyes PERRL, EOMs intact bilaterally and conjunctivae normal Neck supple Neck Narrative: Tracheostomy site is capped and C/D/I. No attempt at vocalization during my interaction. BiPAP mask in place General: trachea midline Chest inspection of chest normal Resp Resp Narrative: Significantly decreased breath sounds on the left side compared to yesterday. Dullness to percussion Auscultation: diminished lung sounds; Negative for rales, rhonchi or wheezes Cardio regular rate, regular rhythm, no murmurs, no rub and no gallops GI normal to inspection, nondistended, normoactive bowel sounds Inspection: GI tube present Extremity no clubbing, cyanosis or edema Skin no rashes or lesions noted Neuro CN's II-XII intact bilaterally and no focal motor deficits Psych cooperative and affect normal Charges/Coding Visit Charges Inpatient E&M: 48904 Subs Hosp L2
--- NOTE | 2021-08-17 09:56 | PN.HOSP_ITS ---
Subjective Subjective No issue overnight, appears to have recurrence of his pleural effusion, occupational health physician ordered a thoracentesis for today Objective Data Objective Data Vital Signs: Vital Signs Temp Pulse Resp BP Pulse Ox 98.2 F 63 16 121/66 H 97 08/17/21 04:00 08/17/21 08:05 08/17/21 08:05 08/17/21 04:00 08/17/21 08:05 Oxygen Flow Rate (L/min) [3] 8 Oxygen Flow Rate (L/min) [2] 8 Oxygen Flow Rate (L/min) [1 ( 8 Initial Baseline)] Oxygen Flow Rate (L/min) 8 Oxygen Delivery Method [3] Nasal Cannula Oxygen Delivery Method [2] Nasal Cannula Oxygen Delivery Method [1 ( Nasal Cannula Initial Baseline)] Oxygen Delivery Method Bi-pap Weight: 117 lb 4.575 oz Body Mass Index (BMI) 17.6 Intake & Output: Intake and Output for Last 24 Hours 08/16/21 08/17/21 08/18/21 03:59 03:59 03:59 Intake Total 150 / 150 850 / 850 0.75 / 0.75 Output Total 850 / 850 850 / 850 250 / 250 Balance -700 / -700 0 / 0 -249.25 / -249.25 Medical Nutrition Assessment Dietitian: Malnutrition Criteria Met Start: 08/14/21 10:16 Freq: Status: Active Protocol: Document 08/17/21 08:32 ELLEN (Rec: 08/17/21 08:32 [id number]) Nutrition Malnutrition Evidence of Malnutrition Exists Yes Malnutrition (severe): Chronic Evidenced By Suboptimal Energy Intake ( Severe),Weight Loss (Severe), Physical Changes (Severe) Clinical Problem Chronic Disease or Condition Related Malnutrition Etiology severe, chronic malnutrition r /t inadequate energy intake d/ t swallowing difficulty, increased energy needs d/t chronic resp. failure Signs/Symptoms as evidenced by estimated PO intake meeting <75% of estimated energy needs >3 months; obvious signs of severe muscle/fat wasting in the face, orbital and temporal regions per physical exam; BMI 17.3; apparent wt loss of 8.2% x 9 days per EMR Status Active Problem Recommendation Dietitian Recommendations/Changes 1) Will continue bolus enteral nutrition support to 250mL Jevity 1.5 4x/day via PEG w/ 200mL H2O flush w/ each bolus to provide 1500 calories, 63.8 g protein, and 1560mL total fluid/day. 2) Regular diet if appropriate per RETAIL BUSINESS DEVELOPMENT MANAGER. Texture/consistency modifications per RETAIL BUSINESS DEVELOPMENT MANAGER. 3) Daily wts. Recommend close monitoring of electrolytes given risk for refeeding syndrome. Lab / Micro Data Result Diagrams: 08/17/21 05:27 08/17/21 05:27 Labs: Laboratory Results - last 24 hr 08/14/21 : Fl Pathologist Comment Reviewed 08/17/21 05:27: WBC 5.4, RBC 2.45 L, Hgb 7.7 L, Hct 24.3 L, MCV 99.2 H, MCH 31.4, MCHC 31.7 L, RDW Std Deviation 48.9 H, RDW Coeff of Vita 13.7, Plt Count 182, MPV 9.8, Immature Gran % (Auto) 0.700, Neut % (Auto) 75.6 H, Lymph % (Auto) 11.4 L, [place] % (Auto) 9.5, Eos % (Auto) 2.4, Baso % (Auto) 0.4, Absolute Neuts (auto) 4.0, Absolute Lymphs (auto) 0.61 L, Nucleated RBC % 0 08/17/21 05:27: Sodium 148 H, Potassium 3.3 L, Chloride 105, Carbon Dioxide 42.0 H, Anion Gap 1 L, BUN 23 H, Creatinine 0.91, Estim Creat Clear Calc 59.60, Est GFR (MDRD) Af Amer 106, Est GFR (MDRD) Non-Af 87, BUN/Creatinine Ratio 25.2 H, Glucose 95, Calcium 8.3 L Micro: Microbiology 08/14/21 Unknown Fluid - Thoracentesis Fluid Gram Stain - Final 08/14/21 Unknown Fluid - Thoracentesis Fluid Body Fluid Culture - Final No growth aerobically. 08/14/21 Unknown Fluid - Thoracentesis Fluid Anaerobic Culture - Preliminary No growth in 48 hours. 08/14/21 01:10 Blood Culture (Wb) - Left Hand Blood Culture - Preliminary No growth in 48 hours. 08/14/21 01:02 Blood Culture (Wb) - Anticubital Right Blood Culture - Preliminary No growth in 48 hours. 08/13/21 21:00 Urine, Clean Catch Legionella Antigen - Final 08/13/21 21:00 Urine, Clean Catch Streptococcus pneumoniae Antigen (M - Final 08/13/21 18:30 Sputum, Induced/Lukens Gram Stain - Final 08/13/21 18:30 Sputum, Induced/Lukens Respiratory Culture - Final Klebsiella pneumoniae sp pneum Gram positive joann 08/13/21 17:51 Mucosa - Nose Influenza Types A,B Direct FA (LU) - Final Radiography Diagnostic Testing: Radiology Impression Chest X-Ray 08/16/21 09:45 IMPRESSION: Left pleural effusion with left basilar atelectasis and/or infiltrate. Stable scarring at the lung bases. Electronically Signed: Juan Crum MD at 14:10 EST , Physical Exam Narrative Const alert and no apparent distress Constitutional Narrative: Minimally interactive and does not cooperate with care HEENT normocephalic and moist oral mucous membranes HEENT Narrative: Trach in place Eyes PERRL, EOMs intact bilaterally and conjunctivae normal Neck supple and no JVD Resp normal respiratory effort, no retractions and no use of accessory muscles Auscultation: diminished lung sounds; Negative for crackles, rales, rhonchi or wheezes Cardio regular rate, regular rhythm, S1 normal heart sound, S2 normal heart sound and no murmurs GI soft to palpation, non-tender and non-distended; Negative for hepatosplenomegaly Extremity no clubbing, cyanosis or edema Skin no rashes or lesions noted Neuro no focal motor deficits and no sensory deficits noted Psych Mood & Affect: flat affect Assessment & Plan Assessment/Plan (1) Acute on chronic respiratory failure with hypoxia and hypercapnia: PLAN: 1. Acute on chronic combined respiratory failure due to possibly mucous plugging with Klebsiella pneumonia and pleural effusion on the left -Recent prolonged hospitalization with empyema leading to tracheostomy tube and PEG, followed by prolonged hospitalization here for bob failure -Continues to refuse aspects of his care -Given his lack of compliance with interventions, will discuss the situation with his mother but ultimately will likely have to [facility] and they will just have to deal with periodic episodes of hypoxia ?He does not seem to understand or care about the need for an active role in his own wellbeing -Continue antimicrobials for 7 days total, his Klebsiella pneumonia in the sputum culture is sensitive to Zosyn ?Continue with as needed Lasix -Continue aerosols ?Speech therapy was recommending a modified diet with pur?ed nectar thick liquid, during his last admission ?Thoracentesis with transudate on admission, it does look like he has a recurrence of his pleural effusion on the left therefore will tap again today 2. COPD not in exacerbation ?Stable ?Continue with inhalers and chronic steroids 3. Depression/anxiety ?He continues to appear apathetic and depressed ?We will continue with his BuSpar and Remeron ?He was started on Zoloft during his last admission, will increase to 100 mg 4. Chronic anemia ?Hemoglobin here is between 8 and 9 baseline is around 10 ?Fecal occult was ordered and pending ?Continue to monitor his hemoglobin 5. Severe protein calorie malnutrition DVT: Lovenox Charges/Coding Visit Charges Inpatient E&M: 93202 Subs Hosp L2
[2021-08-17] MEDS: Sertraline 100 MG Tablet PO (10:58)
[2021-08-17] MEDS: Enoxaparin 30 MG/0.3 ML Syringe SC (10:58)
[2021-08-17] MEDS: Famotidine 20 MG Tablet PO ×2 (10:58→21:26)
[2021-08-17] MEDS: Jevity 1.5. 1,000 ML Bottle 250 ML GT ×2 (10:59→21:27)
[2021-08-17] MEDS: Potassium Chloride Oral Soln 20 MEQ/15 ML UDC 40 MEQ GT (11:02)
--- NOTE | 2021-08-17 11:19 | CASEMGMT ---
PILI called Jonatan at [facility] and let her know patient is not ready for discharge yet. She thanked PILI for the update. Rachel NELSON
--- NOTE | 2021-08-17 11:25 | NURSING ---
Report given to MIRACLE Davenport. Ethel to resume care of patient.
--- NOTE | 2021-08-17 13:45 | NURSING ---
pt to u/s for thoracentesis
[2021-08-17] MEDS: Lidocaine 2% (20 ml mdv) 20 ML Vial INFILT (13:58)
--- NOTE | 2021-08-17 14:10 | RAD_ITS ---
STUDY: X-RAY CHEST REASON FOR EXAM: Male, 70 years old. Pneumothorax TECHNIQUE: AP inspiration and expiration views. COMPARISON: Comparison is made with prior study dated 08/16/2021. FINDINGS: The patient is status post left thoracentesis. There is no evidence of pneumothorax. RAD/Chest Insp/Exp 2 View IMPRESSION: Status post left thoracentesis. There is no evidence of pneumothorax. Electronically Signed: Juan Crum MD at 14:20 EST ,
--- NOTE | 2021-08-17 16:44 | CPS ---
patient was on 15L and desated to 78 and placed back on bipap by MASTER SCHEDULER, nurse notified.
[2021-08-17] MEDS: Mirtazapine 15 MG Tablet 7.5 MG PO (21:26)
--- NOTE | 2021-08-17 23:33 | NURSING ---
Pt satting 80-84% on 15 L HFNC. Suctioned trach d/t pt attempting to cough and clear secretions. Placed pt on BIPAP, AVAPS 50%. Pt sleeping now, tolerating well.
[2021-08-18] VITALS (21 sets, daily range): BP systolic 116–143; BP diastolic 63–73; PULSE 61–79; RESP 12–24; TEMP 36.2–36.7; O2SAT 95–100
[2021-08-18 06:39] LABS: Absolute Neutrophil Count 4.2 X10^3/uL (2.0-7.7); Basophil# 0.03 X10^3/uL; Basophil% 0.5 % (0-1); Eosinophil# 0.14 X10^3/uL; Eosinophils% 2.5 % (0-5); Hematocrit 24.4 % (40-54); Hemoglobin 7.8 g/dL (13.0-16.5); Lymphocyte % 14.2 % (19-41); Mean Corpuscular Hgb 31.5 pg (27.0-32.0); Mean Corpuscular Volume 98.4 fL (80-94); Monocyte# 0.47 X10^3/uL; Monocyte% 8.3 % (0-10); NRBC Flagged by Analyzer 0 % (0-5); Neutrophil # 4.17 X10^3/uL (2.7-7.7); Platelet Count 190 K/mm3 (150-450); RBC Distribution Width CV 13.8 % (11.6-14.6); RBC Distribution Width SD 49.1 fl (35.1-43.9); Red Blood Count 2.48 M/mm3 (4.6-6.2); White Blood Count 5.6 K/mm3 (4.4-11.0)
[2021-08-18 07:03] LABS: Anion Gap 0 (5-15); BUN 23 mg/dL (7-18); BUN/Creat Ratio 24.2 RATIO (10-20); Calcium,Total 8.6 mg/dL (8.5-10.1); Chloride 108 mmol/L (98-107); Creatinine, Serum 0.95 mg/dL (0.70-1.30); EST Glomerular Filtration Rate 83 mL/min (>60); Est Glom Filt Rate - Afr Amer 101 mL/min (>60); Estimated Creatinine Clearance 53.35 ml/min; Glucose 94 mg/dL (74-106); Potassium 3.8 mmol/L (3.5-5.1); Sodium Level 148 mmol/L (136-145)
--- NOTE | 2021-08-18 08:32 | PN.CC_ITS ---
Assessment & Plan Assessment/Plan (1) Acute on chronic respiratory failure with hypoxia and hypercapnia: (2) Mucus plugging of bronchi: (3) Pleural effusion, right: PLAN: RECOMMENDATIONS: 1. Recommend AVAPS therapy via mask or trach with naps and nightly. 2. Continue supplemental oxygen throughout the day per baseline regimen. 3. Consider increasing free water with tube feeds 4. Complete 7 days of antibiotics 5. Must cooperate with continue aerosol treatments along with aggressive bronchopulmonary hygiene. 6. Continued scheduled mucolytic therapy. 7. Consider attempting nasal cannula during the day IMPRESSIONS: 1. Acute combined on chronic hypoxemic respiratory failure secondary to Klebsiella pneumonia and pleural effusion The patient has a baseline medical history including COPD and chronic hypoxemic respiratory failure. Patient appears to be refusing tracheostomy care leading to complications of mucous plugging unclear if patient has a significant pleural effusion versus progressive atelectasis secondary to mucous plugging. Patient has responded well to aggressive pulmonary toileting. Clinical s uspicion the patient will continue to have complications if he refuses any trach care. Discussed at length with patient's mother about the necessity of pulmonary toileting to avoid future complications. Pleural effusion has a transudate pattern on laboratory testing. Patient will need a total of 7 days of antibiotics. Patient with recurrent pleural effusion on the left. Patient should be transitioned to nasal cannula to see if this can be tolerated given thoracentesis yesterday. 2. Encephalopathy Resolved. Patient appears to be more uncooperative than encephalopathic at this time. The patient has not required any positive pressure support, but did have increased FiO2 demands. CT head was unremarkable during recent hospitalization. The patient will interact appropriately, but takes substantial stimulus. 3. Recent prolonged hospitalization with empyema leading to tracheostomy and PEG Continue supportive measures as noted above. Speech therapy recommended modified diet. Nutritional support via PEG tube can be entertained in the interim. Potassium repletion ordered for a PEG for hypokalemia when indicated. Repeat thoracentesis is suggestive of a transudate pattern, so likelihood of recurrent empyema is extremely low. No need to repeat testing at this time given lack of fever and leukocytosis. 4. History of COPD/paroxysmal atrial fibrillation/malnutrition/history of alcohol and tobacco dependency/hypernatremia/hyperchloremia Complicates care, management, recovery and prognosis. Continue supportive measures as noted above. Physical therapy to evaluate the patient. Consider inc rease free water with tube feeds Subjective Subjective Patient did okay overnight. No acute issues were reported. Patient did have a thoracentesis yesterday with 1.2 L removed, but patient is not reporting any significant change in respiratory status. Patient has remained on BiPAP therapy. Patient opens eyes and makes eye contact, but is not readily answering any questions. Objective Data Objective Data Vital Signs: Vital Signs Temp Pulse Resp BP Pulse Ox 36.2 C L 61 19 H 128/64 H 100 08/18/21 04:00 08/18/21 07:30 08/18/21 08:24 08/18/21 04:00 08/18/21 07:30 Oxygen Flow Rate (L/min) [4] 15 Oxygen Flow Rate (L/min) [3] 15 Oxygen Flow Rate (L/min) [2] 15 Oxygen Flow Rate (L/min) [1 ( 15 Initial Baseline)] Oxygen Flow Rate (L/min) [3] 8 Oxygen Flow Rate (L/min) [2] 8 Oxygen Flow Rate (L/min) [1 ( 8 Initial Baseline)] Oxygen Flow Rate (L/min) 15 Oxygen Delivery Method [4] High Flow Oxygen Delivery Method [3] High Flow Oxygen Delivery Method [2] High Flow Oxygen Delivery Method [1 ( High Flow Initial Baseline)] Oxygen Delivery Method [3] Nasal Cannula Oxygen Delivery Method [2] Nasal Cannula Oxygen Delivery Method [1 ( Nasal Cannula Initial Baseline)] Oxygen Delivery Method Nasal Cannula Weight: 51.4 kg Body Mass Index (BMI) 17.6 Intake & Output: Intake and Output for Last 24 Hours 08/16/21 08/17/21 08/18/21 23:59 23:59 23:59 Intake Total 850 / 850 1870.25 / 1870.25 50 / 50 Output Total 700 / 850 2350 / 2350 100 / 100 Balance 150 / 0 -479.75 / -479.75 -50 / -50 Medical Nutrition Assessment Dietitian: Malnutrition Criteria Met Start: 08/14/21 10:16 Freq: Status: Active Protocol: Document 08/17/21 08:32 ELLEN (Rec: 08/17/21 08:32 ELLEN [id number]) Nutrition Malnutrition Evidence of Malnutrition Exists Yes Malnutrition (severe): Chronic Evidenced By Suboptimal Energy Intake ( Severe),Weight Loss (Severe), Physical Changes (Severe) Clinical Problem Chronic Disease or Condition Related Malnutrition Etiology severe, chronic malnutrition r /t inadequate energy intake d/ t swallowing difficulty, increased energy needs d/t chronic resp. failure Signs/Symptoms as evidenced by estimated PO intake meeting <75% of estimated energy needs >3 months; obvious signs of severe muscle/fat wasting in the face, orbital and temporal regions per physical exam; BMI 17.3; apparent wt loss of 8.2% x 9 days per EMR Status Active Problem Recommendation Dietitian Recommendations/Changes 1) Will continue bolus enteral nutrition support to 250mL Jevity 1.5 4x/day via PEG w/ 200mL H2O flush w/ each bolus to provide 1500 calories, 63.8 g protein, and 1560mL total fluid/day. 2) Regular diet if appropriate per SOCIAL MEDIA STRATEGIST. Texture/consistency modifications per SOCIAL MEDIA STRATEGIST. 3) Daily wts. Recommend close monitoring of electrolytes given risk for refeeding syndrome. Lab / Micro Data Result Diagrams: 08/18/21 05:58 08/18/21 05:58 Labs: Laboratory Results - last 24 hr 08/18/21 05:58: WBC 5.6, RBC 2.48 L, Hgb 7.8 L, Hct 24.4 L, MCV 98.4 H, MCH 31.5, MCHC 32.0, RDW Std Deviation 49.1 H, RDW Coeff of Vita 13.8, Plt Count 190, MPV 10.0, Immature Gran % (Auto) 0.500, Neut % (Auto) 74.0 H, Lymph % (Auto) 14.2 L, [place] % (Auto) 8.3, Eos % (Auto) 2.5, Baso % (Auto) 0.5, Absolute Neuts (auto) 4.2, Absolute Lymphs (auto) 0.80 L, Nucleated RBC % 0 08/18/21 05:58: Sodium 148 H, Potassium 3.8, Chloride 108 H, Carbon Dioxide 40.0 H, Anion Gap 0 L, BUN 23 H, Creatinine 0.95, Estim Creat Clear Calc 53.35, Est GFR (MDRD) Af Amer 101, Est GFR (MDRD) Non-Af 83, BUN/Creatinine Ratio 24.2 H, Glucose 94, Calcium 8.6 Micro: Microbiology 08/14/21 Unknown Fluid - Thoracentesis Fluid Gram Stain - Final 08/14/21 Unknown Fluid - Thoracentesis Fluid Body Fluid Culture - Final No growth aerobically. 08/14/21 Unknown Fluid - Thoracentesis Fluid Anaerobic Culture - Preliminary No growth in 48 hours. 08/14/21 01:10 Blood Culture (Wb) - Left Hand Blood Culture - Preliminary No growth in 48 hours. 08/14/21 01:02 Blood Culture (Wb) - Anticubital Right Blood Culture - Preliminary No growth in 48 hours. 08/13/21 21:00 Urine, Clean Catch Legionella Antigen - Final 08/13/21 21:00 Urine, Clean Catch Streptococcus pneumoniae Antigen (M - Final 08/13/21 18:30 Sputum, Induced/Lukens Gram Stain - Final 08/13/21 18:30 Sputum, Induced/Lukens Respiratory Culture - Final Klebsiella pneumoniae sp pneum Gram positive joann 08/13/21 17:51 Mucosa - Nose Influenza Types A,B Direct FA (LU) - Final Radiography Diagnostic Testing: Radiology Impression Thoracentesis Ultrasound 08/17/21 07:26 IMPRESSION: Ultrasound-guided left thoracentesis. Electronically Signed: Juan Crum MD at 14:39 EST , Chest X-Ray 08/17/21 14:10 IMPRESSION: Status post left thoracentesis. There is no evidence of pneumothorax. Electronically Signed: Juan Crum MD at 14:20 EST , Physical Exam Const alert and no apparent distress General Appearance: cooperative and frail HEENT normocephalic and head/scalp atraumatic Eyes PERRL, EOMs intact bilaterally and conjunctivae normal Neck supple Neck Narrative: Tracheostomy site is capped and C/D/I. No attempt at vocalization during my interaction. BiPAP mask in place General: trachea midline Chest inspection of chest normal Resp Resp Narrative: Symmetrically diminished at this time. No dullness to percussion Auscultation: diminished lung sounds; Negative for rales, rhonchi or wheezes Cardio regular rate, regular rhythm, no murmurs, no rub and no gallops GI normal to inspection, nondistended, normoactive bowel sounds Inspection: GI tube present Extremity no clubbing, cyanosis or edema Skin no rashes or lesions noted Neuro CN's II-XII intact bilaterally and no focal motor deficits Psych cooperative and affect normal Charges/Coding Visit Charges Inpatient E&M: 44075 Subs Hosp L2
--- NOTE | 2021-08-18 09:19 | NURSING ---
Pt taken off bipap and placed on 15L NC at 0820. Pt sats 100% on 15L at 0919 while sleeping.
--- NOTE | 2021-08-18 09:44 | PN.HOSP_ITS ---
Subjective Subjective Continues to be an active participant in his care. He did wear his BiPAP overnight Objective Data Objective Data Vital Signs: Vital Signs Temp Pulse Resp BP Pulse Ox 97.2 F L 61 19 H 128/64 H 100 08/18/21 04:00 08/18/21 07:30 08/18/21 08:24 08/18/21 04:00 08/18/21 09:20 Oxygen Flow Rate (L/min) [4] 15 Oxygen Flow Rate (L/min) [3] 15 Oxygen Flow Rate (L/min) [2] 15 Oxygen Flow Rate (L/min) [1 ( 15 Initial Baseline)] Oxygen Flow Rate (L/min) [3] 8 Oxygen Flow Rate (L/min) [2] 8 Oxygen Flow Rate (L/min) [1 ( 8 Initial Baseline)] Oxygen Flow Rate (L/min) 15 Oxygen Delivery Method [4] High Flow Oxygen Delivery Method [3] High Flow Oxygen Delivery Method [2] High Flow Oxygen Delivery Method [1 ( High Flow Initial Baseline)] Oxygen Delivery Method [3] Nasal Cannula Oxygen Delivery Method [2] Nasal Cannula Oxygen Delivery Method [1 ( Nasal Cannula Initial Baseline)] Oxygen Delivery Method High Flow Weight: 113 lb 5.082 oz Body Mass Index (BMI) 17.6 Intake & Output: Intake and Output for Last 24 Hours 08/17/21 08/18/21 08/19/21 03:59 03:59 03:59 Intake Total 850 / 850 1870.25 / 1870.25 0 / 0 Output Total 850 / 850 2200 / 2200 100 / 100 Balance 0 / 0 -329.75 / -329.75 -100 / -100 Medical Nutrition Assessment Dietitian: Malnutrition Criteria Met Start: 08/14/21 10:16 Freq: Status: Active Protocol: Document 08/17/21 08:32 ELLEN (Rec: 08/17/21 08:32 ELLEN [id number]) Nutrition Malnutrition Evidence of Malnutrition Exists Yes Malnutrition (severe): Chronic Evidenced By Suboptimal Energy Intake ( Severe),Weight Loss (Severe), Physical Changes (Severe) Clinical Problem Chronic Disease or Condition Related Malnutrition Etiology severe, chronic malnutrition r /t inadequate energy intake d/ t swallowing difficulty, increased energy needs d/t chronic resp. failure Signs/Symptoms as evidenced by estimated PO intake meeting <75% of estimated energy needs >3 months; obvious signs of severe muscle/fat wasting in the face, orbital and temporal regions per physical exam; BMI 17.3; apparent wt loss of 8.2% x 9 days per EMR Status Active Problem Recommendation Dietitian Recommendations/Changes 1) Will continue bolus enteral nutrition support to 250mL Jevity 1.5 4x/day via PEG w/ 200mL H2O flush w/ each bolus to provide 1500 calories, 63.8 g protein, and 1560mL total fluid/day. 2) Regular diet if appropriate per HEAD STOCK TRANSFER CLERK. Texture/consistency modifications per HEAD STOCK TRANSFER CLERK. 3) Daily wts. Recommend close monitoring of electrolytes given risk for refeeding syndrome. Lab / Micro Data Result Diagrams: 08/18/21 05:58 08/18/21 05:58 Labs: Laboratory Results - last 24 hr 08/18/21 05:58: WBC 5.6, RBC 2.48 L, Hgb 7.8 L, Hct 24.4 L, MCV 98.4 H, MCH 31.5, MCHC 32.0, RDW Std Deviation 49.1 H, RDW Coeff of Vita 13.8, Plt Count 190, MPV 10.0, Immature Gran % (Auto) 0.500, Neut % (Auto) 74.0 H, Lymph % (Auto) 14.2 L, [place] % (Auto) 8.3, Eos % (Auto) 2.5, Baso % (Auto) 0.5, Absolute Neuts (auto) 4.2, Absolute Lymphs (auto) 0.80 L, Nucleated RBC % 0 08/18/21 05:58: Sodium 148 H, Potassium 3.8, Chloride 108 H, Carbon Dioxide 40.0 H, Anion Gap 0 L, BUN 23 H, Creatinine 0.95, Estim Creat Clear Calc 53.35, Est GFR (MDRD) Af Amer 101, Est GFR (MDRD) Non-Af 83, BUN/Creatinine Ratio 24.2 H, Glucose 94, Calcium 8.6 Micro: Microbiology 08/14/21 Unknown Fluid - Thoracentesis Fluid Gram Stain - Final 08/14/21 Unknown Fluid - Thoracentesis Fluid Body Fluid Culture - Final No growth aerobically. 08/14/21 Unknown Fluid - Thoracentesis Fluid Anaerobic Culture - Preliminary No growth in 48 hours. 08/14/21 01:10 Blood Culture (Wb) - Left Hand Blood Culture - Preliminary No growth in 48 hours. 08/14/21 01:02 Blood Culture (Wb) - Anticubital Right Blood Culture - Preliminary No growth in 48 hours. 08/13/21 21:00 Urine, Clean Catch Legionella Antigen - Final 08/13/21 21:00 Urine, Clean Catch Streptococcus pneumoniae Antigen (M - Final 08/13/21 18:30 Sputum, Induced/Lukens Gram Stain - Final 08/13/21 18:30 Sputum, Induced/Lukens Respiratory Culture - Final Klebsiella pneumoniae sp pneum Gram positive joann 08/13/21 17:51 Mucosa - Nose Influenza Types A,B Direct FA (LU) - Final Radiography Diagnostic Testing: Radiology Impression Thoracentesis Ultrasound 08/17/21 07:26 IMPRESSION: Ultrasound-guided left thoracentesis. Electronically Signed: Juan Crum MD at 14:39 EST , Chest X-Ray 08/17/21 14:10 IMPRESSION: Status post left thoracentesis. There is no evidence of pneumothorax. Electronically Signed: Juan Crum MD at 14:20 EST , Physical Exam Narrative Const alert and no apparent distress Constitutional Narrative: Minimally interactive and does not cooperate with care HEENT normocephalic and moist oral mucous membranes HEENT Narrative: Trach in place Eyes PERRL, EOMs intact bilaterally and conjunctivae normal Neck supple and no JVD Resp normal respiratory effort, no retractions and no use of accessory muscles Auscultation: diminished lung sounds; Negative for crackles, rales, rhonchi or wheezes Cardio regular rate, regular rhythm, S1 normal heart sound, S2 normal heart sound and no murmurs GI soft to palpation, non-tender and non-distended; Negative for hepatosplenomegaly Extremity no clubbing, cyanosis or edema Skin no rashes or lesions noted Neuro no focal motor deficits and no sensory deficits noted Psych Mood & Affect: flat affect Assessment & Plan Assessment/Plan (1) Acute on chronic respiratory failure with hypoxia and hypercapnia: PLAN: 1. Acute on chronic combined respiratory failure due to possibly mucous plugging with Klebsiella pneumonia and pleural effusion on the left -Recent prolonged hospitalization with empyema leading to tracheostomy tube and PEG, followed by prolonged hospitalization here for bob failure -Continues to refuse aspects of his care -Given his lack of compliance with interventions, will discuss the situation with his mother but ultimately will likely have to send him back to the group home and they will just have to deal with periodic episodes of hypoxia ?He does not seem to understand or care about the need for an active role in his own wellbeing -Continue antimicrobials for 7 days total, his Klebsiella pneumonia in the sputum culture is sensitive to Zosyn ?Continue with as needed Lasix -Continue aerosols ?Speech therapy was recommending a modified diet with pur?ed nectar thick liquid, during his last admission ?Thoracentesis with transudate on admission, he had a repeat thoracentesis with 1.2 L removed, still no significant improvement in his respiratory status 2. COPD not in exacerbation ?Stable ?Continue with inhalers and chronic steroids 3. Depression/anxiety ?He continues to appear apathetic and depressed ?We will continue with his BuSpar and Remeron ?He was started on Zoloft during his last admission, will increase to 100 mg 4. Chronic anemia ?Hemoglobin here is between 8 and 9 baseline is around 10 ?Fecal occult was ordered and pending ?Continue to monitor his hemoglobin 5. Severe protein calorie malnutrition DVT: Lovenox Charges/Coding Visit Charges Inpatient E&M: 37230 Subs Hosp L2
[2021-08-18] MEDS: Potassium Chloride Oral Soln 20 MEQ/15 ML UDC 40 MEQ GT (10:21)
[2021-08-18] MEDS: Jevity 1.5. 1,000 ML Bottle 250 ML GT (10:21)
[2021-08-18] MEDS: Sertraline 100 MG Tablet PO (10:21)
[2021-08-18] MEDS: Famotidine 20 MG Tablet PO ×2 (10:21→23:00)
[2021-08-18] MEDS: Enoxaparin 30 MG/0.3 ML Syringe SC (10:21)
[2021-08-18] MEDS: 0.9% Saline Lock 10 ML Syringe IV ×2 (13:58→23:00)
--- NOTE | 2021-08-18 19:55 | CPS ---
Decreased O2 to 8 lpm
[2021-08-18] MEDS: Mirtazapine 15 MG Tablet 7.5 MG PO (23:00)
[2021-08-19] VITALS (15 sets, daily range): BP systolic 122–142; BP diastolic 65–71; PULSE 64–96; RESP 20–26; TEMP 36.6–37.1; O2SAT 84–100
[2021-08-19 07:47] LABS: Anion Gap 1 (5-15); BUN 22 mg/dL (7-18); Calcium,Total 8.7 mg/dL (8.5-10.1); Chloride 111 mmol/L (98-107); Creatinine, Serum 0.92 mg/dL (0.70-1.30); EST Glomerular Filtration Rate 87 mL/min (>60); Est Glom Filt Rate - Afr Amer 105 mL/min (>60); Estimated Creatinine Clearance 55.31 ml/min; Glucose 83 mg/dL (74-106); Potassium 4.3 mmol/L (3.5-5.1); Sodium Level 149 mmol/L (136-145)
--- NOTE | 2021-08-19 08:30 | PN.CC_ITS ---
Assessment & Plan Assessment/Plan (1) Acute on chronic respiratory failure with hypoxia and hypercapnia: (2) Mucus plugging of bronchi: (3) Pleural effusion, right: PLAN: RECOMMENDATIONS: 1. Recommend AVAPS therapy via mask or trach with naps and nightly. 2. Continue supplemental oxygen throughout the day per baseline regimen. 3. Consider increasing free water with tube feeds 4. Complete 7 days of antibiotics 5. Must cooperate with continue aerosol treatments along with aggressive bronchopulmonary hygiene. 6. Continued scheduled mucolytic therapy. 7. Will order chest x-ray tomorrow morning to assess for reaccumulation of pleural fluid IMPRESSIONS: 1. Acute combined on chronic hypoxemic respiratory failure secondary to Kle bsiella pneumonia and pleural effusion The patient has a baseline medical history including COPD and chronic hypoxemic respiratory failure. Patient appears to be refusing tracheostomy care leading to complications of mucous plugging unclear if patient has a significant pleural effusion versus progressive atelectasis secondary to mucous plugging. Patient has responded well to aggressive pulmonary toileting. Clinical suspicion the patient will continue to have complications if he refuses any trach care. Discussed at length with patient's mother about the necessity of pulmonary toileting to avoid future complications. Pleural effusion has a transudate pattern on laboratory testing. Patient will need a total of 7 days of antibiotics. Patient with recurrent pleural effusion on the left. Okay to use nasal cannula during the day, but would continue to use AVAPS with sleep. Patient reaccumulated pleural effusion rapidly previously, so we will repeat chest x-ray tomorrow. Patient may require Pleurx catheter if continues to want aggressive intervention. 2. Encephalopathy Resolved. Patient appears to be more uncooperative than encephalopathic at this time. The patient has not required any positive pressure support, but did have increased FiO2 demands. CT head was unremarkable during recent hospitalization. The patient will interact appropriately, but takes substantial stimulus. 3. Recent prolonged hospitalization with empyema leading to tracheostomy and PEG Continue supportive measures as noted above. Speech therapy recommended modified diet. Nutritional support via PEG tube can be entertained in the interim. Potassium repletion ordered for a PEG for hypokalemia when indicated. Repeat thoracentesis is suggestive of a transudate pattern, so likelihood of progression to recurrent empyema is extremely low. No need to repeat testing at this time given lack of fever and leukocytosis. 4. History of COPD/paroxysmal atrial fibrillation/malnutrition/history of alcohol and tobacco dependency/hypernatremia/hyperchloremia Complicates care, management, recovery and prognosis. Continue supportive measures as noted above. Physical therapy to evaluate the patient. Consider increase free water with tube feeds Subjective Subjective Patient off of BiPAP overnight. Tolerating nasal cannula. Patient with more interaction today. Shakes his head no to any pain. Patient not very cooperative with other potential interventions/questions Objective Data Objective Data Vital Signs: Vital Signs Temp Pulse Resp BP Pulse Ox 36.6 C 76 24 H 140/69 H 95 08/19/21 07:54 08/19/21 07:54 08/19/21 07:54 08/19/21 07:54 08/19/21 07:54 Oxygen Flow Rate (L/min) [4] 15 Oxygen Flow Rate (L/min) [3] 15 Oxygen Flow Rate (L/min) [2] 15 Oxygen Flow Rate (L/min) [1 ( 15 Initial Baseline)] Oxygen Flow Rate (L/min) [3] 8 Oxygen Flow Rate (L/min) [2] 8 Oxygen Flow Rate (L/min) [1 ( 8 Initial Baseline)] Oxygen Flow Rate (L/min) 9 Oxygen Delivery Method [4] High Flow Oxygen Delivery Method [3] High Flow Oxygen Delivery Method [2] High Flow Oxygen Delivery Method [1 ( High Flow Initial Baseline)] Oxygen Delivery Method [3] Nasal Cannula Oxygen Delivery Method [2] Nasal Cannula Oxygen Delivery Method [1 ( Nasal Cannula Initial Baseline)] Oxygen Delivery Method High Flow Weight: 51.6 kg Body Mass Index (BMI) 17.6 Intake & Output: Intake and Output for Last 24 Hours 08/17/21 08/18/21 08/19/21 23:59 23:59 23:59 Intake Total 1870.25 / 1870.25 927 / 1327 688 / 688 Output Total 2350 / 2350 650 / 650 175 / 175 Balance -479.75 / -479.75 277 / 677 513 / 513 Medical Nutrition Assessment Dietitian: Malnutrition Criteria Met Start: 08/14/21 1 0:16 Freq: Status: Active Protocol: Document 08/17/21 08:32 ELLEN (Rec: 08/17/21 08:32 ELLEN [id number]) Nutrition Malnutrition Evidence of Malnutrition Exists Yes Malnutrition (severe): Chronic Evidenced By Suboptimal Energy Intake ( Severe),Weight Loss (Severe), Physical Changes (Severe) Clinical Problem Chronic Disease or Condition Related Malnutrition Etiology severe, chronic malnutrition r /t inadequate energy intake d/ t swallowing difficulty, increased energy needs d/t chronic resp. failure Signs/Symptoms as evidenced by estimated PO intake meeting <75% of estimated energy needs >3 months; obvious signs of severe muscle/fat wasting in the face, orbital and temporal regions per physical exam; BMI 17.3; apparent wt loss of 8.2% x 9 days per EMR Status Active Problem Recommendation Dietitian Recommendations/Changes 1) Will continue bolus enteral nutrition support to 250mL Jevity 1.5 4x/day via PEG w/ 200mL H2O flush w/ each bolus to provide 1500 calories, 63.8 g protein, and 1560mL total fluid/day. 2) Regular diet if appropriate per COURT SUPERVISOR. Texture/consistency modifications per COURT SUPERVISOR. 3) Daily wts. Recommend close monitoring of electrolytes given risk for refeeding syndrome. Lab / Micro Data Result Diagrams: 08/18/21 05:58 08/19/21 06:38 Labs: Laboratory Results - last 24 hr 08/19/21 06:38: Sodium 149 H, Potassium 4.3, Chloride 111 H, Carbon Dioxide 37.0 H, Anion Gap 1 L, BUN 22 H, Creatinine 0.92, Estim Creat Clear Calc 55.31, Est GFR (MDRD) Af Amer 105, Est GFR (MDRD) Non-Af 87, BUN/Creatinine Ratio 24.0 H, Glucose 83, Calcium 8.7 Micro: Microbiology 08/14/21 Unknown Fluid - Thoracentesis Fluid Gram Stain - Final 08/14/21 Unknown Fluid - Thoracentesis Fluid Body Fluid Culture - Final No growth aerobically. 08/14/21 Unknown Fluid - Thoracentesis Fluid Anaerobic Culture - Final No growth in 5 days. 08/14/21 01:10 Blood Culture (Wb) - Left Hand Blood Culture - Final No growth in 5 days. 08/14/21 01:02 Blood Culture (Wb) - Anticubital Right Blood Culture - Final No growth in 5 days. 08/13/21 21:00 Urine, Clean Catch Legionella Antigen - Final 08/13/21 21:00 Urine, Clean Catch Streptococcus pneumoniae Antigen (M - Final 08/13/21 18:30 Sputum, Induced/Lukens Gram Stain - Final 08/13/21 18:30 Sputum, Induced/Lukens Respiratory Culture - Final Klebsiella pneumoniae sp pneum Gram positive joann 08/13/21 17:51 Mucosa - Nose Influenza Types A,B Direct FA (LU) - Final Physical Exam Const alert and no apparent distress General Appearance: cooperative and frail HEENT normocephalic and head/scalp atraumatic Eyes PERRL, EOMs intact bilaterally and conjunctivae normal Neck supple Neck Narrative: Tracheostomy site is capped and C/D/I. No attempt at vocalizat ion during my interaction. BiPAP mask in place General: trachea midline Chest inspection of chest normal Resp Resp Narrative: Symmetrically diminished at this time. No dullness to percussion Auscultation: diminished lung sounds; Negative for rales, rhonchi or wheezes Cardio regular rate, regular rhythm, no murmurs, no rub and no gallops GI normal to inspection, nondistended, normoactive bowel sounds Inspection: GI tube present Extremity no clubbing, cyanosis or edema Skin no rashes or lesions noted Neuro CN's II-XII intact bilaterally and no focal motor deficits Psych cooperative and affect normal Charges/Coding Visit Charges Inpatient E&M: 08927 Subs Hosp L2
[2021-08-19] MEDS: Jevity 1.5. 1,000 ML Bottle 250 ML GT ×2 (09:43→21:53)
[2021-08-19] MEDS: Potassium Chloride Oral Soln 20 MEQ/15 ML UDC 40 MEQ GT (09:43)
[2021-08-19] MEDS: Sertraline 100 MG Tablet PO (09:44)
[2021-08-19] MEDS: Famotidine 20 MG Tablet PO ×2 (09:44→21:34)
[2021-08-19] MEDS: Enoxaparin 30 MG/0.3 ML Syringe SC (09:46)
--- NOTE | 2021-08-19 10:09 | PN.HOSP_ITS ---
Subjective Subjective No issues overnight. He is down to about 8 to 9 L nasal cannula. He has been wearing his BiPAP intermittently but still is very intermittent his compliant with interventions Objective Data Objective Data Vital Signs: Vital Signs Temp Pulse Resp BP Pulse Ox 97.9 F 76 24 H 140/69 H 95 08/19/21 07:54 08/19/21 07:54 08/19/21 07:54 08/19/21 07:54 08/19/21 07:54 Oxygen Flow Rate (L/min) [4] 15 Oxygen Flow Rate (L/min) [3] 15 Oxygen Flow Rate (L/min) [2] 15 Oxygen Flow Rate (L/min) [1 ( 15 Initial Baseline)] Oxygen Flow Rate (L/min) [3] 8 Oxygen Flow Rate (L/min) [2] 8 Oxygen Flow Rate (L/min) [1 ( 8 Initial Baseline)] Oxygen Flow Rate (L/min) 9 Oxygen Delivery Method [4] High Flow Oxygen Delivery Method [3] High Flow Oxygen Delivery Method [2] High Flow Oxygen Delivery Method [1 ( High Flow Initial Baseline)] Oxygen Delivery Method [3] Nasal Cannula Oxygen Delivery Method [2] Nasal Cannula Oxygen Delivery Method [1 ( Nasal Cannula Initial Baseline)] Oxygen Delivery Method High Flow Weight: 113 lb 12.136 oz Body Mass Index (BMI) 17.6 Intake & Output: Intake and Output for Last 24 Hours 08/18/21 08/19/21 08/20/21 03:59 03:59 03:59 Intake Total 1870.25 / 1870.25 1327 / 1527 488 / 488 Output Total 2200 / 2200 650 / 650 175 / 175 Balance -329.75 / -329.75 677 / 877 313 / 313 Medical Nutrition Assessment Dietitian: Malnutrition Criteria Met Start: 08/14/21 10:16 Freq: Status: Active Protocol: Document 08/17/21 08:32 ELLEN (Rec: 08/17/21 08:32 ELLEN [id number]) Nutrition Malnutrition Evidence of Malnutrition Exists Yes Malnutrition (severe): Chronic Evidenced By Suboptimal Energy Intake ( Severe),Weight Loss (Severe), Physical Changes (Severe) Clinical Problem Chronic Disease or Condition Related Malnutrition Etiology severe, chronic malnutrition r /t inadequate energy intake d/ t swallowing difficulty, increased energy needs d/t chronic resp. failure Signs/Symptoms as evidenced by estimated PO intake meeting <75% of estimated energy needs >3 months; obvious signs of severe muscle/fat wasting in the face, orbital and temporal regions per physical exam; BMI 17.3; apparent wt loss of 8.2% x 9 days per EMR Status Active Problem Recommendation Dietitian Recommendations/Changes 1) Will continue bolus enteral nutrition support to 250mL Jevity 1.5 4x/day via PEG w/ 200mL H2O flush w/ each bolus to provide 1500 calories, 63.8 g protein, and 1560mL total fluid/day. 2) Regular diet if appropriate per [employer]. Texture/consistency modifications per [employer]. 3) Daily wts. Recommend close monitoring of electrolytes given risk for refeeding syndrome. Lab / Micro Data Result Diagrams: 08/18/21 05:58 08/19/21 06:38 Labs: Laboratory Results - last 24 hr 08/19/21 06:38: Sodium 149 H, Potassium 4.3, Chloride 111 H, Carbon Dioxide 37.0 H, Anion Gap 1 L, BUN 22 H, Creatinine 0.92, Estim Creat Clear Calc 55.31, Est GFR (MDRD) Af Amer 105, Est GFR (MDRD) Non-Af 87, BUN/Creatinine Ratio 24.0 H, Glucose 83, Calcium 8.7 Micro: Microbiology 08/14/21 Unknown Fluid - Thoracentesis Fluid Gram Stain - Final 08/14/21 Unknown Fluid - Thoracentesis Fluid Body Fluid Culture - Final No growth aerobically. 08/14/21 Unknown Fluid - Thoracentesis Fluid Anaerobic Culture - Final No growth in 5 days. 08/14/21 01:10 Blood Culture (Wb) - Left Hand Blood Culture - Final No growth in 5 days. 08/14/21 01:02 Blood Culture (Wb) - Anticubital Right Blood Culture - Final No growth in 5 days. 08/13/21 21:00 Urine, Clean Catch Legionella Antigen - Final 08/13/21 21:00 Urine, Clean Catch Streptococcus pneumoniae Antigen (M - Final 08/13/21 18:30 Sputum, Induced/Lukens Gram Stain - Final 08/13/21 18:30 Sputum, Induced/Lukens Respiratory Culture - Final Klebsiella pneumoniae sp pneum Gram positive joann 08/13/21 17:51 Mucosa - Nose Influenza Types A,B Direct FA (LU) - Final Physical Exam Narrative Const alert and no apparent distress Constitutional Narrative: Minimally interactive and does not cooperate with care HEENT normocephalic and moist oral mucous membranes HEENT Narrative: Trach in place Eyes PERRL, EOMs intact bilaterally and conjunctivae normal Neck supple and no JVD Resp normal respiratory effort, no retractions and no use of accessory muscles Auscultation: diminished lung sounds; Negative for crackles, rales, rhonchi or wheezes Cardio regular rate, regular rhythm, S1 normal heart sound, S2 normal heart sound and no murmurs GI soft to palpation, non-tender and non-distended; Negative for hepatosplenomegaly Extremity no clubbing, cyanosis or edema Skin no rashes or lesions noted Neuro no focal motor deficits and no sensory deficits noted Psych Mood & Affect: flat affect Assessment & Plan Assessment/Plan (1) Acute on chronic respiratory failure with hypoxia and hypercapnia: PLAN: 1. Acute on chronic combined respiratory failure due to possibly mucous plugging with Klebsiella pneumonia and pleural effusion on the left -Recent prolonged hospitalization with empyema leading to tracheostomy tube and PEG, followed by prolonged hospitalization here for bob failure -Continues to refuse aspects of his care -Given his lack of compliance with interventions, will discuss the situation with his mother but ultimately will likely have to send him back to the senior care and they will just have to deal with periodic episodes of hypoxia ?He does not seem to understand or care about the need for an active role in his own wellbeing -Continue antimicrobials for 7 days total, his Klebsiella pneumonia in the sputum culture is sensitive to Zosyn ?Continue with as needed Lasix -Continue aerosols ?Speech therapy was recommending a modified diet with pur?ed nectar thick liquid, during his last admission ?Thoracentesis with transudate on admission, he had a repeat thoracentesis with 1.2 L removed, still no significant improvement in his respiratory status, will check chest x-ray in the morning 2. COPD not in exacerbation ?Stable ?Continue with inhalers and chronic steroids 3. Depression/anxiety ?He continues to appear apathetic and depressed ?We will continue with his BuSpar and Remeron ?He was started on Zoloft during his last admission, will increase to 100 mg 4. Chronic anemia ?Hemoglobin here is between 8 and 9 baseline is around 10 ?Fecal occult was ordered and pending ?Continue to monitor his hemoglobin 5. Severe protein calorie malnutrition DVT: Lovenox Charges/Coding Visit Charges Inpatient E&M: 89834 Subs Hosp L2
[2021-08-19] MEDS: 0.9% Saline Lock 10 ML Syringe IV (14:04)
[2021-08-19] MEDS: Mirtazapine 15 MG Tablet 7.5 MG PO (21:34)
[2021-08-20] VITALS (17 sets, daily range): BP systolic 121–140; BP diastolic 60–68; PULSE 68–82; RESP 18–23; TEMP 36.6–36.8; O2SAT 84–98
--- NOTE | 2021-08-20 05:55 | RAD_ITS ---
STUDY: X-RAY CHEST REASON FOR EXAM: Male, 70 years old. Recurrent pleural effusion TECHNIQUE: Single AP portable view of the chest. COMPARISON: Comparison is made with prior study dated 08/17/2021. FINDINGS: The tracheostomy tube is present. The tip is at 4 cm proximal to the nuno. EKG electrodes are seen. Hyperinflation. Stable scarring more prominent in the lower lobes. Blunting of the left contracted angle with left lower lobe atelectasis/infiltrate. There is a 4.3 cm x 3.9 cm bulla in the right mid lung. There is no demonstrated pleural abnormality. Normal size heart. Normal mediastinum and genaro. Normal visualized pulmonary arteries. There is atherosclerotic calcification of the aortic arch with tortuosity. There are diffuse degenerative changes of the visualized thoracic spine. Normal visualized ribs, clavicles, and shoulders. There is no demonstrated abnormality of the visualized soft tissue structures of the upper abdomen. RAD/Chest 1 View (Portable) IMPRESSION: Blunting of the left costophrenic angle with left basilar infiltration and/or atelectasis. Stable scarring at the right lung base. Bullous formation in the right mid lung. Electronically Signed: Juan Crum MD at 8:29 EST ,
--- NOTE | 2021-08-20 06:21 | PN.CC_ITS ---
Assessment & Plan Assessment/Plan (1) Acute on chronic respiratory failure with hypoxia and hypercapnia: (2) Mucus plugging of bronchi: (3) Pleural effusion, right: PLAN: RECOMMENDATIONS: 1. Recommend AVAPS therapy via mask or trach with naps and nightly. 2. Wean supplemental oxygen to maintain saturations at or above 90%. 3. Continue nutritional support via PEG tube along with free water flushes. 4. Continue antimicrobials to complete 7-day treatment course. 5. Continue aggressive bronchopulmonary hygiene. IMPRESSIONS: 1. Acute combined on chronic hypoxemic respiratory failure secondary to Klebsiella pneumonia and pleural effusion The patient has a baseline medical history including COPD and chronic hypoxemic respiratory failure. Plan to continue supportive measures including aggressive bronchopulmonary hygiene and antimicrobials to complete 7 days of therapy. Wean supplemental oxygen to maintain saturations at or above 90%. Recommend use of AVAPS therapy with naps and nightly. 2. Recent prolonged hospitalization with empyema leading to tracheostomy and PEG Continue supportive measures as noted above. Speech therapy recommended modified diet. Nutritional support via PEG tube can be entertained in the interim. 3. Hypernatremia Continue increased free water flushes with tube feeds as tolerated. Monitor electrolytes daily. 4. History of COPD/paroxysmal atrial fibrillation/malnutrition/history of alcohol and tobacco dependency Complicates care, management, recovery and prognosis. Continue supportive measures as noted above. Physical therapy to work with the patient. This note was generated with [employer] dictation software. It may contain incorrect words, spelling, and punctuation that were not noted in checking the note before signing. Subjective Subjective The patient was seen and examined at the bedside this morning. Events from the last 24 hours have been reviewed. The patient is currently afebrile, hemodynamically stable and maintaining appropriate oxygen saturations on room air. The patient is documented to be overall net -700 mL for the hospitalization. He remains on antimicrobials and as needed bronchodilator therapy. Objective Data Objective Data The patient's most recent lab work, culture data and imaging studies have all been personally reviewed. Sputum culture dated August 13 was positive for Klebsiella pneumoniae. Vital Signs: Vital Signs Temp Pulse Resp BP Pulse Ox 97.8 F 76 20 H 140/61 H 98 08/20/21 05:26 08/20/21 05:26 08/20/21 05:26 08/20/21 05:26 08/20/21 05:26 Oxygen Flow Rate (L/min) [4] 15 Oxygen Flow Rate (L/min) [3] 15 Oxygen Flow Rate (L/min) [2] 15 Oxygen Flow Rate (L/min) [1 ( 15 Initial Baseline)] Oxygen Flow Rate (L/min) [3] 8 Oxygen Flow Rate (L/min) [2] 8 Oxygen Flow Rate (L/min) [1 ( 8 Initial Baseline)] Oxygen Flow Rate (L/min) 9 Oxygen Delivery Method [4] High Flow Oxygen Delivery Method [3] High Flow Oxygen Delivery Method [2] High Flow Oxygen Delivery Method [1 ( High Flow Initial Baseline)] Oxygen Delivery Method [3] Nasal Cannula Oxygen Delivery Method [2] Nasal Cannula Oxygen Delivery Method [1 ( Nasal Cannula Initial Baseline)] Oxygen Delivery Method Room Air Weight: 51.7 kg Body Mass Index (BMI) 17.6 Intake & Output: Intake and Output for Last 24 Hours 08/18/21 08/19/21 08/20/21 23:59 23:59 23:59 Intake Total 927 / 1327 1618 / 1618 50 / 50 Output Total 650 / 650 750 / 750 0 / 0 Balance 277 / 677 868 / 868 50 / 50 Medical Nutrition Assessment Dietitian: Malnutrition Criteria Met Start: 08/14/21 10:16 Freq: Status: Active Protocol: Document 08/17/21 08:32 ELLEN (Rec: 08/17/21 08:32 ELLEN [id number]) Nutrition Malnutrition Evidence of Malnutrition Exists Yes Malnutrition (severe): Chronic Evidenced By Suboptimal Energy Intake ( Severe),Weight Loss (Severe), Physical Changes (Severe) Clinical Problem Chronic Disease or Condition Related Malnutrition Etiology severe, chronic malnutrition r /t inadequate energy intake d/ t swallowing difficulty, increased energy needs d/t chronic resp. failure Signs/Symptoms as evidenced by estimated PO intake meeting <75% of estimated energy needs >3 months; obvious signs of severe muscle/fat wasting in the face, orbital and temporal regions per physical exam; BMI 17.3; apparent wt loss of 8.2% x 9 days per EMR Status Active Problem Recommendation Dietitian Recommendations/Changes 1) Will continue bolus enteral nutrition support to 250mL Jevity 1.5 4x/day via PEG w/ 200mL H2O flush w/ each bolus to provide 1500 calories, 63.8 g protein, and 1560mL total fluid/day. 2) Regular diet if appropriate per [employer]. Texture/consistency modifications per [employer]. 3) Daily wts. Recommend close monitoring of electrolytes given risk for refeeding syndrome. Lab / Micro Data Attestation: I reviewed the patient's lab results. Result Diagrams: 08/20/21 05:39 08/20/21 05:39 Labs: Laboratory Results - last 24 hr 08/19/21 06:38: Sodium 149 H, Potassium 4.3, Chloride 111 H, Carbon Dioxide 37.0 H, Anion Gap 1 L, BUN 22 H, Creatinine 0.92, Estim Creat Clear Calc 55.31, Est GFR (MDRD) Af Amer 105, Est GFR (MDRD) Non-Af 87, BUN/Creatinine Ratio 24.0 H, Glucose 83, Calcium 8.7 Micro: Microbiology 08/13/21 10:45 Stool Stool Occult Blood (LU) - Final 08/14/21 Unknown Fluid - Thoracentesis Fluid Gram Stain - Final 08/14/21 Unknown Fluid - Thoracentesis Fluid Body Fluid Culture - Final No growth aerobically. 08/14/21 Unknown Fluid - Thoracentesis Fluid Anaerobic Culture - Final No growth in 5 days. 08/14/21 01:10 Blood Culture (Wb) - Left Hand Blood Culture - Final No growth in 5 days. 08/14/21 01:02 Blood Culture (Wb) - Anticubital Right Blood Culture - Final No growth in 5 days. 08/13/21 21:00 Urine, Clean Catch Legionella Antigen - Final 08/13/21 21:00 Urine, Clean Catch Streptococcus pneumoniae Antigen (M - Final 08/13/21 18:30 Sputum, Induced/Lukens Gram Stain - Final 08/13/21 18:30 Sputum, Induced/Lukens Respiratory Culture - Final Klebsiella pneumoniae sp pneum Gram positive joann 08/13/21 17:51 Mucosa - Nose Influenza Types A,B Direct FA (LU) - Final Physical Exam Const alert and no apparent distress General Appearance: cooperative Nutritional Appearance: thin HEENT normocephalic and head/scalp atraumatic Eyes PERRL and EOMs intact bilaterally Neck supple Neck Narrative: Tracheostomy site is C/D/I. General: trachea midline Chest inspection of chest normal Resp Auscultation: diminished lung sounds; Negative for rales, rhonchi or wheezes Cardio regular rate and regular rhythm GI normal to inspection, nondistended, normoactive bowel sounds Inspection: GI tube present Extremity no clubbing, cyanosis or edema Skin no rashes or lesions noted Neuro CN's II-XII intact bilaterally and no focal motor deficits Psych Mood & Affect: flat affect Charges/Coding Visit Charges Inpatient E&M: 81245 Subs Hosp L2
[2021-08-20 06:47] LABS: Absolute Lymphocyte Count 0.81 X10^3/uL (0.83-4.51); Absolute Neutrophil Count 3.1 X10^3/uL (2.0-7.7); Basophil# 0.04 X10^3/uL; Basophil% 0.9 % (0-1); Eosinophil# 0.24 X10^3/uL; Eosinophils% 5.1 % (0-5); Hematocrit 24.3 % (40-54); Hemoglobin 7.7 g/dL (13.0-16.5); Lymphocyte # 0.81 X10^3/ul (0.83-4.51); Lymphocyte % 17.3 % (19-41); Mean Corp Hgb Conc 31.7 g/dL (32-36); Mean Corpuscular Hgb 31.4 pg (27.0-32.0); Mean Corpuscular Volume 99.2 fL (80-94); Monocyte# 0.46 X10^3/uL; Monocyte% 9.8 % (0-10); NRBC Flagged by Analyzer 0 % (0-5); Neutrophil % 66.3 % (47-70); Platelet Count 237 K/mm3 (150-450); RBC Distribution Width CV 13.7 % (11.6-14.6); RBC Distribution Width SD 49.6 fl (35.1-43.9); Red Blood Count 2.45 M/mm3 (4.6-6.2); White Blood Count 4.7 K/mm3 (4.4-11.0)
[2021-08-20 07:10] LABS: Anion Gap 1 (5-15); BUN 22 mg/dL (7-18); BUN/Creat Ratio 21.6 RATIO (10-20); Calcium,Total 8.4 mg/dL (8.5-10.1); Chloride 113 mmol/L (98-107); Creatinine, Serum 1.02 mg/dL (0.70-1.30); EST Glomerular Filtration Rate 77 mL/min (>60); Est Glom Filt Rate - Afr Amer 93 mL/min (>60); Estimated Creatinine Clearance 49.98 ml/min; Glucose 89 mg/dL (74-106); Potassium 4.2 mmol/L (3.5-5.1); Sodium Level 149 mmol/L (136-145)
--- NOTE | 2021-08-20 10:15 | CASEMGMT ---
SW faxed updates to [facility]. Rachel Rubalcava TUBE BUILDER CREDIT VERIFICATION CLERK
[2021-08-20] MEDS: Famotidine 20 MG Tablet PO ×2 (11:42→21:30)
[2021-08-20] MEDS: Sertraline 100 MG Tablet PO (11:42)
[2021-08-20] MEDS: Enoxaparin 30 MG/0.3 ML Syringe SC (11:42)
[2021-08-20] MEDS: Potassium Chloride Oral Soln 20 MEQ/15 ML UDC 40 MEQ GT (11:42)
--- NOTE | 2021-08-20 12:52 | PN.HOSP_ITS ---
Subjective Subjective Patient seen and examined. He was lying comfortably in bed. He had no active complaints. He denies shortness of breath he was on 8 L of oxygen. He denied any chest pain, palpitation, dizziness, nausea or vomiting. Review of systems otherwise negative. Objective Data Objective Data Vital Signs: Vital Signs Temp Pulse Resp BP Pulse Ox 97.8 F 82 20 H 140/61 H 92 08/20/21 05:26 08/20/21 07:05 08/20/21 05:26 08/20/21 05:26 08/20/21 09:26 Oxygen Flow Rate (L/min) [4] 15 Oxygen Flow Rate (L/min) [3] 15 Oxygen Flow Rate (L/min) [2] 15 Oxygen Flow Rate (L/min) [1 ( 15 Initial Baseline)] Oxygen Flow Rate (L/min) [3] 8 Oxygen Flow Rate (L/min) [2] 8 Oxygen Flow Rate (L/min) [1 ( 8 Initial Baseline)] Oxygen Flow Rate (L/min) 8 Oxygen Delivery Method [4] High Flow Oxygen Delivery Method [3] High Flow Oxygen Delivery Method [2] High Flow Oxygen Delivery Method [1 ( High Flow Initial Baseline)] Oxygen Delivery Method [3] Nasal Cannula Oxygen Delivery Method [2] Nasal Cannula Oxygen Delivery Method [1 ( Nasal Cannula Initial Baseline)] Oxygen Delivery Method High Flow Weight: 113 lb 15.664 oz Body Mass Index (BMI) 17.6 Intake & Output: Intake and Output for Last 24 Hours 08/18/21 08/19/21 08/20/21 23:59 23:59 23:59 Intake Total 927 / 1327 1618 / 1618 100 / 100 Output Total 650 / 650 750 / 750 0 / 0 Balance 277 / 677 868 / 868 100 / 100 Medical Nutrition Assessment Dietitian: Malnutrition Criteria Met Start: 08/14/21 10:16 Freq: Status: Active Protocol: Document 08/17/21 08:32 ELLEN (Rec: 08/17/21 08:32 ELLEN [id number]) Nutrition Malnutrition Evidence of Malnutrition Exists Yes Malnutrition (severe): Chronic Evidenced By Suboptimal Energy Intake ( Severe),Weight Loss (Severe), Physical Changes (Severe) Clinical Problem Chronic Disease or Condition Related Malnutrition Etiology severe, chronic malnutrition r /t inadequate energy intake d/ t swallowing difficulty, increased energy needs d/t chronic resp. failure Signs/Symptoms as evidenced by estimated PO intake meeting <75% of estimated energy needs >3 months; obvious signs of severe muscle/fat wasting in the face, orbital and temporal regions per physical exam; BMI 17.3; apparent wt loss of 8.2% x 9 days per EMR Status Active Problem Recommendation Dietitian Recommendations/Changes 1) Will continue bolus enteral nutrition support to 250mL Jevity 1.5 4x/day via PEG w/ 200mL H2O flush w/ each bolus to provide 1500 calories, 63.8 g protein, and 1560mL total fluid/day. 2) Regular diet if appropriate per AGRIC[employer] DEPARTMENT CHAIR. Texture/consistency modifications per AGRICULT[employer] DEPARTMENT CHAIR. 3) Daily wts. Recommend close monitoring of electrolytes given risk for refeeding syndrome. Lab / Micro Data Result Diagrams: 08/20/21 05:39 08/20/21 05:39 Labs: Laboratory Results - last 24 hr 08/20/21 05:39: WBC 4.7, RBC 2.45 L, Hgb 7.7 L, Hct 24.3 L, MCV 99.2 H, MCH 31.4, MCHC 31.7 L, RDW Std Deviation 49.6 H, RDW Coeff of Vita 13.7, Plt Count 237, MPV 10.0, Immature Gran % (Auto) 0.600, Neut % (Auto) 66.3, Lymph % (Auto) 17.3 L, [place] % (Auto) 9.8, Eos % (Auto) 5.1 H, Baso % (Auto) 0.9, Absolute Neuts (auto) 3.1, Absolute Lymphs (auto) 0.81 L, Nucleated RBC % 0 08/20/21 05:39: Sodium 149 H, Potassium 4.2, Chloride 113 H, Carbon Dioxide 35.0 H, Anion Gap 1 L, BUN 22 H, Creatinine 1.02, Estim Creat Clear Calc 49.98, Est GFR (MDRD) Af Amer 93, Est GFR (MDRD) Non-Af 77, BUN/Creatinine Ratio 21.6 H, Glucose 89, Calcium 8.4 L Micro: Microbiology 08/13/21 10:45 Stool Stool Occult Blood (LU) - Final 08/14/21 Unknown Fluid - Thoracentesis Fluid Gram Stain - Final 08/14/21 Unknown Fluid - Thoracentesis Fluid Body Fluid Culture - Final No growth aerobically. 02/15/22 Unknown Fluid - Thoracentesis Fluid Anaerobic Culture - Final No growth in 5 days. 08/14/21 01:10 Blood Culture (Wb) - Left Hand Blood Culture - Final No growth in 5 days. 08/14/21 01:02 Blood Culture (Wb) - Anticubital Right Blood Culture - Final No growth in 5 days. 08/13/21 21:00 Urine, Clean Catch Legionella Antigen - Final 08/13/21 21:00 Urine, Clean Catch Streptococcus pneumoniae Antigen (M - Final 08/13/21 18:30 Sputum, Induced/Lukens Gram Stain - Final 08/13/21 18:30 Sputum, Induced/Lukens Respiratory Culture - Final Klebsiella pneumoniae sp pneum Gram positive joann 08/13/21 17:51 Mucosa - Nose Influenza Types A,B Direct FA (LU) - Final Radiography Diagnostic Testing: Radiology Impression Chest X-Ray 08/20/21 05:55 IMPRESSION: Blunting of the left costophrenic angle with left basilar infiltration and/or atelectasis. Stable scarring at the right lung base. Bullous formation in the right mid lung. Electronically Signed: Juan Crum MD at 8:29 EST , Physical Exam Const alert, oriented x3 and no apparent distress Orientation / Consciousness: lethargic Exam Limitations: no limitations HEENT head/scalp atraumatic and moist oral mucous membranes Head and Scalp: normocephalic Eyes PERRL, EOMs intact bilaterally and conjunctivae normal Neck no lymphadenopathy Resp Resp Narrative: Diminished breath sounds bibasilarly. No wheezes or crackles. On 8L of oxygen. Tracheostomy in place Cardio regular rate, regular rhythm, S1 normal heart sound and S2 normal heart sound GI normal to inspection, nondistended, normoactive bowel sounds, soft to palpation, non-tender and non-distended GI Narrative: PEG tube in place Extremity normal to inspection, full ROM and no clubbing, cyanosis or edema Peripheral Pulses: Yes pulses 2+ throughout Skin no rashes or lesions noted and no wounds Neuro oriented x3, CN's II-XII intact bilaterally and moves all extremities Sensorium / Orientation: awake and alert Psych affect normal Assessment & Plan Assessment/Plan (1) Dyspnea: (2) Sepsis with acute hypoxic respiratory failure: (3) Respiratory failure: PLAN: #Acute on chronic hypoxic and hypercapnic respiratory failure due to Klebsiella pneumonia and left pleural effusion * this is complicated by mucous plugging as well as patient is not compliant with managemeent * on IV zosyn; to complete a 7 day course of antibiotics * on breathing treatment with bronchodilators * titrate oxygen to maintain sats >90% * lasix prn * s/p thoracentesis which showed a transudative fluid. * #COPD: not in exacerbation. On breathing treatment with bronchodilators #Depression and anxiety: on buspar and remeron. Also on zoloft #Chronic anemia; hb today is 7.7. His baseline is 8-9. Will monior. Stool for occult blood was negative. #Hypernatremia: * sodium is up to 149 today. * On free water flushes with tube feeding. * Will give IV D5W overnight to help bring down sodium #Severe protein calorie malnutrition * nutrition on board. BMI is 16.8 * nutritional support via PEG tube with free water flushes * #History of paroxysmal afib: stable DVT prophylaxis: lovenox Charges/Coding Visit Charges Inpatient E&M: 23836 Subs Hosp L2
[2021-08-20] MEDS: Jevity 1.5. 1,000 ML Bottle 250 ML GT ×2 (13:40→18:29)
[2021-08-20] MEDS: Mirtazapine 15 MG Tablet 7.5 MG PO (21:29)
--- NOTE | 2021-08-20 22:20 | NURSING ---
08/20 2199 pt agreed to be suctioned, also mouth care completed. Prior pt was refusing yelling at staff to leave him alone. Medications were given, jevity was still refused by pt. Resp notified pt agrees to 30 minutes of BIPAP for the night.
[2021-08-21] VITALS (26 sets, daily range): BP systolic 125–138; BP diastolic 65–71; PULSE 62–86; RESP 19–29; TEMP 36.3–36.9; O2SAT 13–98
[2021-08-21 06:07] LABS: Absolute Lymphocyte Count 0.98 X10^3/uL (0.83-4.51); Basophil# 0.04 X10^3/uL; Basophil% 0.8 % (0-1); Eosinophil# 0.21 X10^3/uL; Eosinophils% 4.4 % (0-5); Hemoglobin 8.3 g/dL (13.0-16.5); Lymphocyte # 0.98 X10^3/ul (0.83-4.51); Lymphocyte % 20.8 % (19-41); Mean Corp Hgb Conc 33.2 g/dL (32-36); Mean Corpuscular Hgb 32.4 pg (27.0-32.0); Mean Corpuscular Volume 97.7 fL (80-94); Mean Platelet Vol. 9.7 fl (6.2-12.0); Monocyte# 0.42 X10^3/uL; Monocyte% 8.9 % (0-10); NRBC Flagged by Analyzer 0 % (0-5); Neutrophil # 3.01 X10^3/uL (2.7-7.7); Neutrophil % 63.8 % (47-70); Platelet Count 223 K/mm3 (150-450); RBC Distribution Width CV 13.9 % (11.6-14.6); RBC Distribution Width SD 49.3 fl (35.1-43.9); Red Blood Count 2.56 M/mm3 (4.6-6.2); White Blood Count 4.7 K/mm3 (4.4-11.0)
[2021-08-21 06:34] LABS: Anion Gap -1 (5-15); BUN 20 mg/dL (7-18); BUN/Creat Ratio 20.9 RATIO (10-20); Calcium,Total 8.4 mg/dL (8.5-10.1); Chloride 111 mmol/L (98-107); Creatinine, Serum 0.96 mg/dL (0.70-1.30); EST Glomerular Filtration Rate 83 mL/min (>60); Est Glom Filt Rate - Afr Amer 100 mL/min (>60); Estimated Creatinine Clearance 51.46 ml/min; Glucose 85 mg/dL (74-106); Potassium 4.5 mmol/L (3.5-5.1); Sodium Level 146 mmol/L (136-145)
--- NOTE | 2021-08-21 07:40 | PN.CC_ITS ---
Assessment & Plan Assessment/Plan (1) Acute on chronic respiratory failure with hypoxia and hypercapnia: (2) Mucus plugging of bronchi: (3) Pleural effusion, right: PLAN: RECOMMENDATIONS: 1. Recommend AVAPS therapy via mask or trach with naps and nightly. 2. Wean supplemental oxygen to maintain saturations at or above 90%. 3. Continue nutritional support via PEG tube along with free water flushes. 4. Continue antimicrobials to complete 7-day treatment course. 5. Continue aggressive bronchopulmonary hygiene. IMPRESSIONS: 1. Acute combined on chronic hypoxemic respiratory failure secondary to Klebsiella pneumonia and pleural effusion The patient has a baseline medical history including COPD and chronic hypoxemic respiratory failure. Plan to continue supportive measures including aggressive bronchopulmonary hygiene and antimicrobials to complete 7 days of therapy. Wean supplemental oxygen to maintain saturations at or above 90%. Recommend use of AVAPS therapy with naps and nightly. 2. Recent prolonged hospitalization with empyema leading to tracheostomy and PEG Continue supportive measures as noted above. Speech therapy recommended modified diet. Nutritional support via PEG tube can be entertained in the interim. 3. Hypernatremia Improving. Continue increased free water flushes with tube feeds as tolerated. Monitor electrolytes daily. 4. History of COPD/paroxysmal atrial fibrillation/malnutrition/history of alcohol and tobacco dependency Complicates care, management, recovery and prognosis. Continue supportive measures as noted above. Physical therapy to work with the patient. This note was generated with [employer] dictation software. It may contain incorrect words, spelling, and punctuation that were not noted in checking the note before signing. Subjective Subjective The patient was seen and examined at the bedside this morning. Events from the last 24 hours have been reviewed. The patient is currently afebrile, hemodynamically stable and maintaining appropriate oxygen saturations on 12 L/min high flow cannula. The patient is documented to be overall net even for the hospitalization. He remains on antimicrobials and as needed bronchodilator therapy. Hemoglobin is stable at 8.3 g/dL. Sodium has improved to 146. Creatinine is within normal limits. Objective Data Objective Data The patient's most recent lab work, culture data and imaging studies have all been personally reviewed. Sputum culture dated August 13 was positive for Klebsiella pneumoniae. Vital Signs: Vital Signs Temp Pulse Resp BP Pulse Ox 97.6 F L 71 20 H 138/65 H 96 08/21/21 02:59 08/21/21 03:29 08/21/21 02:59 08/21/21 02:59 08/21/21 02:59 Oxygen Flow Rate (L/min) [4] 15 Oxygen Flow Rate (L/min) [3] 15 Oxygen Flow Rate (L/min) [2] 15 Oxygen Flow Rate (L/min) [1 ( 15 Initial Baseline)] Oxygen Flow Rate (L/min) [3] 8 Oxygen Flow Rate (L/min) [2] 8 Oxygen Flow Rate (L/min) [1 ( 8 Initial Baseline)] Oxygen Flow Rate (L/min) 12 Oxygen Delivery Method [4] High Flow Oxygen Delivery Method [3] High Flow Oxygen Delivery Method [2] High Flow Oxygen Delivery Method [1 ( High Flow Initial Baseline)] Oxygen Delivery Method [3] Nasal Cannula Oxygen Delivery Method [2] Nasal Cannula Oxygen Delivery Method [1 ( Nasal Cannula Initial Baseline)] Oxygen Delivery Method High Flow Weight: 50.1 kg Body Mass Index (BMI) 17.6 Intake & Output: Intake and Output for Last 24 Hours 08/19/21 08/20/21 08/21/21 23:59 23:59 23:59 Intake Total 1618 / 1618 1000 / 1000 283.75 / 283.75 Output Total 750 / 750 100 / 100 300 / 300 Balance 868 / 868 900 / 900 -16.25 / -16.25 Medical Nutrition Assessment Dietitian: Malnutrition Criteria Met Start: 08/14/21 10:16 Freq: Status: Active Protocol: Document 08/17/21 08:32 ELLEN (Rec: 08/17/21 08:32 ELLEN [id number]) Nutrition Malnutrition Evidence of Malnutrition Exists Yes Malnutrition (severe): Chronic Evidenced By Suboptimal Energy Intake ( Severe),Weight Loss (Severe), Physical Changes (Severe) Clinical Problem Chronic Disease or Condition Related Malnutrition Etiology severe, chronic malnutrition r /t inadequate energy intake d/ t swallowing difficulty, increased energy needs d/t chronic resp. failure Signs/Symptoms as evidenced by estimated PO intake meeting <75% of estimated energy needs >3 months; obvious signs of severe muscle/fat wasting in the face, orbital and temporal regions per physical exam; BMI 17.3; apparent wt loss of 8.2% x 9 days per EMR Status Active Problem Recommendation Dietitian Recommendations/Changes 1) Will continue bolus enteral nutrition support to 250mL Jevity 1.5 4x/day via PEG w/ 200mL H2O flush w/ each bolus to provide 1500 calories, 63.8 g protein, and 1560mL total fluid/day. 2) Regular diet if appropriate per IMAGING SERVICES DIRECTOR. Texture/consistency modifications per IMAGING SERVICES DIRECTOR. 3) Daily wts. Recommend close monitoring of electrolytes given risk for refeeding syndrome. Lab / Micro Data Attestation: I reviewed the patient's lab results. Result Diagrams: 08/21/21 05:45 08/21/21 05:45 Labs: Laboratory Results - last 24 hr 08/21/21 05:45: WBC 4.7, RBC 2.56 L, Hgb 8.3 L, Hct 25.0 L, MCV 97.7 H, MCH 32.4 H, MCHC 33.2, RDW Std Deviation 49.3 H, RDW Coeff of Vita 13.9, Plt Count 223, MPV 9.7, Immature Gran % (Auto) 1.300 H, Neut % (Auto) 63.8, Lymph % (Auto) 20.8, [place] % (Auto) 8.9, Eos % (Auto) 4.4, Baso % (Auto) 0.8, Absolute Neuts (auto) 3.0, Absolute Lymphs (auto) 0.98, Nucleated RBC % 0 08/21/21 05:45: Sodium 146 H, Potassium 4.5, Chloride 111 H, Carbon Dioxide 36.0 H, Anion Gap -1 L, BUN 20 H, Creatinine 0.96, Estim Creat Clear Calc 51.46, Est GFR (MDRD) Af Amer 100, Est GFR (MDRD) Non-Af 83, BUN/Creatinine Ratio 20.9 H, Glucose 85, Calcium 8.4 L Micro: Microbiology 08/13/21 10:45 Stool Stool Occult Blood (LU) - Final 08/14/21 Unknown Fluid - Thoracentesis Fluid Gram Stain - Final 08/14/21 Unknown Fluid - Thoracentesis Fluid Body Fluid Culture - Final No growth aerobically. 08/14/21 Unknown Fluid - Thoracentesis Fluid Anaerobic Culture - Final No growth in 5 days. 08/14/21 01:10 Blood Culture (Wb) - Left Hand Blood Culture - Final No growth in 5 days. 08/14/21 01:02 Blood Culture (Wb) - Anticubital Right Blood Culture - Final No growth in 5 days. 08/13/21 21:00 Urine, Clean Catch Legionella Antigen - Final 08/13/21 21:00 Urine, Clean Catch Streptococcus pneumoniae Antigen (M - Final 08/13/21 18:30 Sputum, Induced/Lukens Gram Stain - Final 08/13/21 18:30 Sputum, Induced/Lukens Respiratory Culture - Final Klebsiella pneumoniae sp pneum Gram positive joann 08/13/21 17:51 Mucosa - Nose Influenza Types A,B Direct FA (LU) - Final Radiography Diagnostic Testing: Radiology Impression Chest X-Ray 08/20/21 05:55 IMPRESSION: Blunting of the left costophrenic angle with left basilar infiltration and/or atelectasis. Stable scarring at the right lung base. Bullous formation in the right mid lung. Electronically Signed: Juan Crum MD at 8:29 EST , Physical Exam Const alert and no apparent distress General Appearance: cooperative Nutritional Appearance: thin HEENT normocephalic and head/scalp atraumatic Eyes PERRL and EOMs intact bilaterally Neck supple Neck Narrative: Tracheostomy site is C/D/I. General: trachea midline Chest inspection of chest normal Resp Auscultation: diminished lung sounds; Negative for rales, rhonchi or wheezes Cardio regular rate and regular rhythm GI normal to inspection, nondistended, normoactive bowel sounds Inspection: GI tube present Extremity no clubbing, cyanosis or edema Skin no rashes or lesions noted Neuro CN's II-XII intact bilaterally and no focal motor deficits Psych Mood & Affect: flat affect Charges/Coding Visit Charges Inpatient E&M: 97867 Subs Hosp L3
[2021-08-21] MEDS: Potassium Chloride Oral Soln 20 MEQ/15 ML UDC 40 MEQ GT (09:13)
[2021-08-21] MEDS: Jevity 1.5. 1,000 ML Bottle 250 ML GT ×3 (09:13→22:30)
[2021-08-21] MEDS: Enoxaparin 30 MG/0.3 ML Syringe SC (09:14)
[2021-08-21] MEDS: Sertraline 100 MG Tablet PO (09:14)
[2021-08-21] MEDS: Famotidine 20 MG Tablet PO ×2 (09:14→22:19)
--- NOTE | 2021-08-21 09:28 | CASEMGMT ---
PILI called Jonatan at [facility] and left her a voice mail asking if patient had been approved for Medicaid yet. PILI also asked if his [employer] would deny him could he return on Medicaid. Rachel NELSON
--- NOTE | 2021-08-21 11:24 | PN.HOSP_ITS ---
Subjective Subjective Patient seen and examined. HE remains frail and lethargic. He feels his breathing is the same. He has no other complaints and review of systems is otherwise negative. He was up to 12L of oxygen earlier today, but is now down to 10L. Objective Data Objective Data Vital Signs: Vital Signs Temp Pulse Resp BP Pulse Ox 97.3 F L 74 19 H 136/68 H 98 08/21/21 09:00 08/21/21 11:00 08/21/21 09:00 08/21/21 09:00 08/21/21 10:02 Oxygen Flow Rate (L/min) [4] 15 Oxygen Flow Rate (L/min) [3] 15 Oxygen Flow Rate (L/min) [2] 15 Oxygen Flow Rate (L/min) [1 ( 15 Initial Baseline)] Oxygen Flow Rate (L/min) [3] 8 Oxygen Flow Rate (L/min) [2] 8 Oxygen Flow Rate (L/min) [1 ( 8 Initial Baseline)] Oxygen Flow Rate (L/min) 13 Oxygen Delivery Method [4] High Flow Oxygen Delivery Method [3] High Flow Oxygen Delivery Method [2] High Flow Oxygen Delivery Method [1 ( High Flow Initial Baseline)] Oxygen Delivery Method [3] Nasal Cannula Oxygen Delivery Method [2] Nasal Cannula Oxygen Delivery Method [1 ( Nasal Cannula Initial Baseline)] Oxygen Delivery Method High Flow Weight: 110 lb 7.225 oz Body Mass Index (BMI) 17.6 Intake & Output: Intake and Output for Last 24 Hours 08/19/21 08/20/21 08/21/21 23:59 23:59 23:59 Intake Total 1618 / 1618 1000 / 1000 803.75 / 803.75 Output Total 750 / 750 100 / 100 300 / 300 Balance 868 / 868 900 / 900 503.75 / 503.75 Medical Nutrition Assessment Dietitian: Malnutrition Criteria Met Start: 08/14/21 10:16 Freq: Status: Active Protocol: Document 08/17/21 08:32 ELLEN (Rec: 08/17/21 08:32 ELLEN [id number]) Nutrition Malnutrition Evidence of Malnutrition Exists Yes Malnutrition (severe): Chronic Evidenced By Suboptimal Energy Intake ( Severe),Weight Loss (Severe), Physical Changes (Severe) Clinical Problem Chronic Disease or Condition Related Malnutrition Etiology severe, chronic malnutrition r /t inadequate energy intake d/ t swallowing difficulty, increased energy needs d/t chronic resp. failure Signs/Symptoms as evidenced by estimated PO intake meeting <75% of estimated energy needs >3 months; obvious signs of severe muscle/fat wasting in the face, orbital and temporal regions per physical exam; BMI 17.3; apparent wt loss of 8.2% x 9 days per EMR Status Active Problem Recommendation Dietitian Recommendations/Changes 1) Will continue bolus enteral nutrition support to 250mL Jevity 1.5 4x/day via PEG w/ 200mL H2O flush w/ each bolus to provide 1500 calories, 63.8 g protein, and 1560mL total fluid/day. 2) Regular diet if appropriate per EPOXY SPECIALIST. Texture/consistency modifications per EPOXY SPECIALIST. 3) Daily wts. Recommend close monitoring of electrolytes given risk for refeeding syndrome. Lab / Micro Data Result Diagrams: 08/21/21 05:45 08/21/21 05:45 Labs: Laboratory Results - last 24 hr 08/21/21 05:45: WBC 4.7, RBC 2.56 L, Hgb 8.3 L, Hct 25.0 L, MCV 97.7 H, MCH 32.4 H, MCHC 33.2, RDW Std Deviation 49.3 H, RDW Coeff of Vita 13.9, Plt Count 223, MPV 9.7, Immature Gran % (Auto) 1.300 H, Neut % (Auto) 63.8, Lymph % (Auto) 20.8, [place] % (Auto) 8.9, Eos % (Auto) 4.4, Baso % (Auto) 0.8, Absolute Neuts (auto) 3.0, Absolute Lymphs (auto) 0.98, Nucleated RBC % 0 08/21/21 05:45: Sodium 146 H, Potassium 4.5, Chloride 111 H, Carbon Dioxide 36.0 H, Anion Gap -1 L, BUN 20 H, Creatinine 0.96, Estim Creat Clear Calc 51.46, Est GFR (MDRD) Af Amer 100, Est GFR (MDRD) Non-Af 83, BUN/Creatinine Ratio 20.9 H, Glucose 85, Calcium 8.4 L Micro: Microbiology 08/13/21 10:45 Stool Stool Occult Blood (LU) - Final 08/14/21 Unknown Fluid - Thoracentesis Fluid Gram Stain - Final 08/14/21 Unknown Fluid - Thoracentesis Fluid Body Fluid Culture - Final No growth aerobically. 08/14/21 Unknown Fluid - Thoracentesis Fluid Anaerobic Culture - Final No growth in 5 days. 08/14/21 01:10 Blood Culture (Wb) - Left Hand Blood Culture - Final No growth in 5 days. 08/14/21 01:02 Blood Culture (Wb) - Anticubital Right Blood Culture - Final No growth in 5 days. 08/13/21 21:00 Urine, Clean Catch Legionella Antigen - Final 08/13/21 21:00 Urine, Clean Catch Streptococcus pneumoniae Antigen (M - F inal 08/13/21 18:30 Sputum, Induced/Lukens Gram Stain - Final 08/13/21 18:30 Sputum, Induced/Lukens Respiratory Culture - Final Klebsiella pneumoniae sp pneum Gram positive joann 08/13/21 17:51 Mucosa - Nose Influenza Types A,B Direct FA (LU) - Final Physical Exam Const alert, oriented x3 and no apparent distress Orientation / Consciousness: lethargic Exam Limitations: no limitations HEENT normocephalic, head/scalp atraumatic and moist oral mucous membranes Head and Scalp: normocephalic Eyes PERRL, EOMs intact bilaterally and conjunctivae normal Neck no lymphadenopathy, supple and no JVD Resp normal respiratory effort, no retractions and no use of accessory muscles Resp Narrative: Diminished breath sounds bibasilarly. No wheezes or crackles. On 10L of oxygen. Tracheostomy in place Auscultation: diminished lung sounds; Negative for crackles, rales, rhonchi or wheezes Cardio regular rate, regular rhythm, S1 normal heart sound, S2 normal heart sound and no murmurs GI normal to inspection, nondistended, normoactive bowel sounds, soft to palpation, non-tender and non-distended; Negative for hepatosplenomegaly GI Narrative: PEG tube in place Extremity normal to inspection, full ROM and no clubbing, cyanosis or edema Peripheral Pulses: Yes pulses 2+ throughout Skin no rashes or lesions noted and no wounds Neuro oriented x3, CN's II-XII intact bilaterally, moves all extremities, no focal motor deficits and no sensory deficits noted Sensorium / Orientation: awake and alert Psych Psych Narrative: flat affect Mood & Affect: flat affect Assessment & Plan Assessment/Plan (1) Dyspnea: (2) Sepsis with acute hypoxic respiratory failure: (3) Respiratory failure: PLAN: #Acute on chronic hypoxic and hypercapnic respiratory failure due to Klebsiella pneumonia and left pleural effusion * this is complicated by mucous plugging as well as patient is not compliant with managemeent * on IV zosyn; to complete a 7 day course of antibiotics * on breathing treatment with bronchodilators * titrate oxygen to maintain sats >90% * lasix prn * s/p thoracentesis which showed a transudative fluid. * on 10L of oxygen today. * #COPD: not in exacerbation. On breathing treatment with bronchodilators #Depression and anxiety: on buspar and remeron. Also on zoloft #Chronic anemia; hb today is 8.3. His baseline is 8-9. Will monior. Stool for occult blood was negative. #Hypernatremia: * sodium is down to 149 today after receiving D5W * On free water flushes with tube feeding. * Will give IV D5W overnight to help bring down sodium #Severe protein calorie malnutrition * nutrition on board. BMI is 16.8 * nutritional support via PEG tube with free water flushes * #History of paroxysmal afib: stable DVT prophylaxis: lovenox code status: * patient remains full code was not very compliant with treatment. * Mother is apparently very involved in his care and but takes actively in plan of care. Will discuss with patient and mother today about CODE STATUS. Charges/Coding Visit Charges Inpatient E&M: 19509 Subs Hosp L3
--- NOTE | 2021-08-21 12:13 | CHAPLAIN ---
Type of Pastoral Visit _x__ Initial Visit ___ Follow-up Visit ___ On-call Visit ___ General Patient Visit ___ Spiritual Assessment ___ Family Conference ___ Bereavement ___ Rapid Response ___ Code Blue ___ Other (describe below) Pastoral Care Referral From _x__ Patient ___ Family ___ Nurse ___ Physician ___ Box Sorter ___ Director Nurses' Registry ___ Other (describe below) Sacrament/Intervention _x__ Active listening ___ Anointing ___ Taoism ___ Bereavement ___ Communion ___ Laura exploration ___ ___ Life review ___ Prayer ___ Reconciliation ___ Sacrament of Sick _x__ Supportive presence ___ Wedding ___ Other (describe below) Pastoral Comments patient is awake and politely answers questions; this gun synchronizer sat at bedside and asked questions to evaluate emotional support for patient; pt states his support is from his mother and his activity is watching TV; otherwise pt says he has no needs; pt states that he would prefer to take a nap at this time
--- NOTE | 2021-08-21 14:41 | CASEMGMT ---
SW spoke with patient's mom. SW asked if she would like patient to return to [facility]. She said she does not want him to go anywhere else. She said all of the nursing homes are short staffed so it likely wouldn't be any different. Rachel Rubalcava CONFECTIONERY LABORATORY MANAGER LESLIE
--- NOTE | 2021-08-21 21:23 | NURSING ---
Pt refused medication, feeds and refusing to get assess at this time. This RN asked if pt needs anything, pt verbally said, I want you to leave. This RN will attempt to give meds/assess pt in a little bit again, pt has 12L highflow, o2 sats at 92%.
[2021-08-21] MEDS: Mirtazapine 15 MG Tablet 7.5 MG PO (22:19)
[2021-08-22] VITALS (18 sets, daily range): BP systolic 116–141; BP diastolic 59–80; PULSE 61–82; RESP 18–22; TEMP 36.5–37; O2SAT 92–99
[2021-08-22 06:54] LABS: Absolute Lymphocyte Count 0.87 X10^3/uL (0.83-4.51); Absolute Neutrophil Count 2.8 X10^3/uL (2.0-7.7); Basophil# 0.03 X10^3/uL; Basophil% 0.7 % (0-1); Eosinophil# 0.29 X10^3/uL; Eosinophils% 6.5 % (0-5); Hematocrit 24.6 % (40-54); Hemoglobin 7.9 g/dL (13.0-16.5); Lymphocyte # 0.87 X10^3/ul (0.83-4.51); Lymphocyte % 19.5 % (19-41); Mean Corp Hgb Conc 32.1 g/dL (32-36); Mean Corpuscular Hgb 31.2 pg (27.0-32.0); Mean Corpuscular Volume 97.2 fL (80-94); Monocyte# 0.42 X10^3/uL; Monocyte% 9.4 % (0-10); NRBC Flagged by Analyzer 0 % (0-5); Neutrophil # 2.81 X10^3/uL (2.7-7.7); Neutrophil % 62.8 % (47-70); Platelet Count 234 K/mm3 (150-450); RBC Distribution Width CV 13.9 % (11.6-14.6); Red Blood Count 2.53 M/mm3 (4.6-6.2); White Blood Count 4.5 K/mm3 (4.4-11.0)
[2021-08-22 07:19] LABS: Anion Gap 0 (5-15); BUN 19 mg/dL (7-18); BUN/Creat Ratio 20.2 RATIO (10-20); Calcium,Total 8.4 mg/dL (8.5-10.1); Chloride 106 mmol/L (98-107); Creatinine, Serum 0.94 mg/dL (0.70-1.30); EST Glomerular Filtration Rate 85 mL/min (>60); Est Glom Filt Rate - Afr Amer 102 mL/min (>60); Estimated Creatinine Clearance 52.14 ml/min; Glucose 75 mg/dL (74-106); Potassium 4.3 mmol/L (3.5-5.1); Sodium Level 142 mmol/L (136-145)
[2021-08-22] MEDS: Jevity 1.5. 1,000 ML Bottle 250 ML GT (08:28)
[2021-08-22] MEDS: Enoxaparin 30 MG/0.3 ML Syringe SC (08:28)
[2021-08-22] MEDS: Sertraline 100 MG Tablet PO (08:28)
[2021-08-22] MEDS: Potassium Chloride Oral Soln 20 MEQ/15 ML UDC 40 MEQ GT (08:28)
[2021-08-22] MEDS: Famotidine 20 MG Tablet PO (08:28)
--- NOTE | 2021-08-22 09:40 | PCM.PN.INT ---
Assessment & Plan Assessment/Plan (1) Pleural effusion, right: PLAN: RECOMMENDATIONS: 1. Recommend AVAPS therapy via mask or trach with naps and nightly. 2. Wean supplemental oxygen to maintain saturations at or above 90%. 3. Continue nutritional support via PEG tube. 4. Continue antimicrobials to complete 7-day treatment course. 5. Continue aggressive bronchopulmonary hygiene. 6. Transition from PRN to scheduled bronchodilators. 7. Administer IV Lasix today. IMPRESSIONS: 1. Acute combined on chronic hypoxemic respiratory failure secondary to Klebsiella pneumonia and pleural effusion The patient has a baseline medical history including COPD and chronic hypoxemic respiratory failure. Plan to continue supportive measures including aggressive bronchopulmonary hygiene and antimicrobials to complete 7 days of therapy. Wean supplemental oxygen to maintain saturations at or above 90%. The patient has been noncompliant with the use of nocturnal Pap therapy. I would strongly urge that AVAPS therapy be utilized with naps and nightly. In addition, will transition the patient from as needed to scheduled bronchodilator therapy while awake. IV Lasix will be administered today as well. 2. Recent prolonged hospitalization with empyema leading to tracheostomy and PEG Continue supportive measures as noted above. Speech therapy recommended modified diet. Nutritional support via PEG tube can be entertained in the interim. 3. History of COPD/paroxysmal atrial fibrillation/malnutrition/history of alcohol and tobacco dependency Complicates care, management, recovery and prognosis. Continue supportive measures as noted above. Physical therapy to work with the patient. This note was generated with [employer] dictation software. It may contain incorrect words, spelling, and punctuation that were not noted in checking the note before signing. Subjective Subjective The patient was seen and examined at the bedside this morning. Events from the last 24 hours have been reviewed. The patient is currently afebrile, hemodynamically stable and maintaining appropriate oxygen saturations on 10 L/min high flow cannula. The patient is documented to be overall net +1.2 L for the hospitalization. He remains on antimicrobials and as needed bronchodilator therapy. Objective Data Objective Data The patient's most recent lab work, culture data and imaging studies have all been personally reviewed. Surface echocardiogram from February 2021 demonstrated normal LV size and function with an ejection fraction of 50% and a pulmonary artery systolic pressure estimated to be 50 mmHg. Sputum culture dated August 13 was positive for Klebsiella pneumoniae. Vital Signs: Vital Signs Temp Pulse Resp BP Pulse Ox 97.8 F 69 20 H 139/59 H 95 08/22/21 08:25 08/22/21 08:25 08/22/21 08:25 08/22/21 08:25 08/22/21 08:25 Oxygen Flow Rate (L/min) [4] 15 Oxygen Flow Rate (L/min) [3] 15 Oxygen Flow Rate (L/min) [2] 15 Oxygen Flow Rate (L/min) [1 ( 15 Initial Baseline)] Oxygen Flow Rate (L/min) [3] 8 Oxygen Flow Rate (L/min) [2] 8 Oxygen Flow Rate (L/min) [1 ( 8 Initial Baseline)] Oxygen Flow Rate (L/min) 10 Oxygen Delivery Method [4] High Flow Oxygen Delivery Method [3] High Flow Oxygen Delivery Method [2] High Flow Oxygen Delivery Method [1 ( High Flow Initial Baseline)] Oxygen Delivery Method [3] Nasal Cannula Oxygen Delivery Method [2] Nasal Cannula Oxygen Delivery Method [1 ( Nasal Cannula Initial Baseline)] Oxygen Delivery Method High Flow Weight: 49.7 kg Body Mass Index (BMI) 17.6 Intake & Output: Intake and Output for Last 24 Hours 08/20/21 08/21/21 08/22/21 23:59 23:59 23:59 Intake Total 1000 / 1000 2053.75 / 2053.75 600 / 600 Output Total 100 / 100 1125 / 1125 400 / 400 Balance 900 / 900 928.75 / 928.75 200 / 200 Medical Nutrition Assessment Dietitian: Malnutrition Criteria Met Start: 08/14/21 10:16 Freq: Status: Active Protocol: Document 08/17/21 08:32 ELLEN (Rec: 08/17/21 08:32 ELLEN [id number]) Nutrition Malnutrition Evidence of Malnutrition Exists Yes Malnutrition (severe): Chronic Evidenced By Suboptimal Energy Intake ( Severe),Weight Loss (Severe), Physical Changes (Severe) Clinical Problem Chronic Disease or Condition Related Malnutrition Etiology severe, chronic malnutrition r /t inadequate energy intake d/ t swallowing difficulty, increased energy needs d/t chronic resp. failure Signs/Symptoms as evidenced by estimated PO intake meeting <75% of estimated energy needs >3 months; obvious signs of severe muscle/fat wasting in the face, orbital and temporal regions per physical exam; BMI 17.3; apparent wt loss of 8.2% x 9 days per EMR Status Active Problem Recommendation Dietitian Recommendations/Changes 1) Will continue bolus enteral nutrition support to 250mL Jevity 1.5 4x/day via PEG w/ 200mL H2O flush w/ each bolus to provide 1500 calories, 63.8 g protein, and 1560mL total fluid/day. 2) Regular diet if appropriate per PEDIATRIC IMMUNOLOGIST. Texture/consistency modifications per PEDIATRIC IMMUNOLOGIST. 3) Daily wts. Recommend close monitoring of electrolytes given risk for refeeding syndrome. Lab / Micro Data Attestation: I reviewed the patient's lab results. Result Diagrams: 08/22/21 06:10 08/22/21 06:10 Labs: Laboratory Results - last 24 hr 08/22/21 06:10: WBC 4.5, RBC 2.53 L, Hgb 7.9 L, Hct 24.6 L, MCV 97.2 H, MCH 31.2, MCHC 32.1, RDW Std Deviation 49.0 H, RDW Coeff of Vita 13.9, Plt Count 234, MPV 10.0, Immature Gran % (Auto) 1.100 H, Neut % (Auto) 62.8, Lymph % (Auto) 19.5, [place] % (Auto) 9.4, Eos % (Auto) 6.5 H, Baso % (Auto) 0.7, Absolute Neuts (auto) 2.8, Absolute Lymphs (auto) 0.87, Nucleated RBC % 0 08/22/21 06:10: Sodium 142, Potassium 4.3, Chloride 106, Carbon Dioxide 36.0 H, Anion Gap 0 L, BUN 19 H, Creatinine 0.94, Estim Creat Clear Calc 52.14, Est GFR (MDRD) Af Amer 102, Est GFR (MDRD) Non-Af 85, BUN/Creatinine Ratio 20.2 H, Glucose 75, Calcium 8.4 L Micro: Microbiology 08/13/21 10:45 Stool Stool Occult Blood (LU) - Final 08/14/21 Unknown Fluid - Thoracentesis Fluid Gram Stain - Final 08/14/21 Unknown Fluid - Thoracentesis Fluid Body Fluid Culture - Final No growth aerobically. 08/14/21 Unknown Fluid - Thoracentesis Fluid Anaerobic Culture - Final No growth in 5 days. 08/14/21 01:10 Blood Culture (Wb) - Left Hand Blood Culture - Final No growth in 5 days. 08/14/21 01:02 Blood Culture (Wb) - Anticubital Right Blood Culture - Final No growth in 5 days. 08/13/21 21:00 Urine, Clean Catch Legionella Antigen - Final 08/13/21 21:00 Urine, Clean Catch Streptococcus pneumoniae Antigen (M - Final 08/13/21 18:30 Sputum, Induced/Lukens Gram Stain - Final 08/13/21 18:30 Sputum, Induced/Lukens Respiratory Culture - Final Klebsiella pneumoniae sp pneum Gram positive joann 08/13/21 17:51 Mucosa - Nose Influenza Types A,B Direct FA (LU) - Final Physical Exam Const no apparent distress General Appearance: cooperative and lethargic Nutritional Appearance: thin HEENT normocephalic and head/scalp atraumatic Eyes PERRL and EOMs intact bilaterally Neck supple Neck Narrative: Tracheostomy site is C/D/I. General: trachea midline Chest inspection of chest normal Resp Auscultation: diminished lung sounds; Negative for rales, rhonchi or wheezes Cardio regular rate and regular rhythm GI normal to inspection, nondistended, normoactive bowel sounds Inspection: GI tube present Extremity no clubbing, cyanosis or edema Skin no rashes or lesions noted Neuro CN's II-XII intact bilaterally and no focal motor deficits Psych Mood & Affect: flat affect Charges/Coding Visit Charges Inpatient E&M: 84697 Subs Hosp L3
--- NOTE | 2021-08-22 09:54 | CASEMGMT ---
PILI called Jonatan at [facility] to find out if patient's Medicaid is active or if it is still pending. Jonatan transferred me to their business office. PILI left a message for Monica Ramon at [facility] regarding this question. Rachel Rubalcava BLANKET CUTTING MACHINE OPERATOR LESLIE
[2021-08-22 10:10] LABS: BNP,B-Type NATRIURETIC PEPTIDE 139.6 pg/mL (0-100)
--- NOTE | 2021-08-22 11:34 | PN.HOSP_ITS ---
Subjective Subjective Patient seen and examined. Has no active complaints. He remains on 10 L of oxygen. Review of systems otherwise negative. I did bring up his CODE STATUS today. Patient tells me that he would like to have CPR but does not want to be on the ventilator. Objective Data Objective Data Vital Signs: Vital Signs Temp Pulse Resp BP Pulse Ox 97.8 F 66 20 H 139/59 H 93 08/22/21 08:25 08/22/21 11:05 08/22/21 08:25 08/22/21 08:25 08/22/21 09:50 Oxygen Flow Rate (L/min) [4] 15 Oxygen Flow Rate (L/min) [3] 15 Oxygen Flow Rate (L/min) [2] 15 Oxygen Flow Rate (L/min) [1 ( 15 Initial Baseline)] Oxygen Flow Rate (L/min) [3] 8 Oxygen Flow Rate (L/min) [2] 8 Oxygen Flow Rate (L/min) [1 ( 8 Initial Baseline)] Oxygen Flow Rate (L/min) 10 Oxygen Delivery Method [4] High Flow Oxygen Delivery Method [3] High Flow Oxygen Delivery Method [2] High Flow Oxygen Delivery Method [1 ( High Flow Initial Baseline)] Oxygen Delivery Method [3] Nasal Cannula Oxygen Delivery Method [2] Nasal Cannula Oxygen Delivery Method [1 ( Nasal Cannula Initial Baseline)] Oxygen Delivery Method High Flow Weight: 109 lb 9.116 oz Body Mass Index (BMI) 17.6 Intake & Output: Intake and Output for Last 24 Hours 08/20/21 08/21/21 08/22/21 23:59 23:59 23:59 Intake Total 1000 / 1000 2053.75 / 2053.75 650 / 650 Output Total 100 / 100 1125 / 1125 400 / 400 Balance 900 / 900 928.75 / 928.75 250 / 250 Medical Nutrition Assessment Dietitian: Malnutrition Criteria Met Start: 08/14/21 10:16 Freq: Status: Active Protocol: Document 08/17/21 08:32 ELLEN (Rec: 08/17/21 08:32 ELLEN [id number]) Nutrition Malnutrition Evidence of Malnutrition Exists Yes Malnutrition (severe): Chronic Evidenced By Suboptimal Energy Intake ( Severe),Weight Loss (Severe), Physical Changes (Severe) Clinical Problem Chronic Disease or Condition Related Malnutrition Etiology severe, chronic malnutrition r /t inadequate energy intake d/ t swallowing difficulty, increased energy needs d/t chronic resp. failure Signs/Symptoms as evidenced by estimated PO intake meeting <75% of estimated energy needs >3 months; obvious signs of severe muscle/fat wasting in the face, orbital and temporal regions per physical exam; BMI 17.3; apparent wt loss of 8.2% x 9 days per EMR Status Active Problem Recommendation Dietitian Recommendations/Changes 1) Will continue bolus enteral nutrition support to 250mL Jevity 1.5 4x/day via PEG w/ 200mL H2O flush w/ each bolus to provide 1500 calories, 63.8 g protein, and 1560mL total fluid/day. 2) Regular diet if appropriate per SIDE PANEL PADDER. Texture/consistency modifications per SIDE PANEL PADDER. 3) Daily wts. Recommend close monitoring of electrolytes given risk for refeeding syndrome. Lab / Micro Data Result Diagrams: 08/22/21 06:10 08/22/21 06:10 Labs: Laboratory Results - last 24 hr 08/22/21 06:10: WBC 4.5, RBC 2.53 L, Hgb 7.9 L, Hct 24.6 L, MCV 97.2 H, MCH 31.2, MCHC 32.1, RDW Std Deviation 49.0 H, RDW Coeff of Vita 13.9, Plt Count 234, MPV 10.0, Immature Gran % (Auto) 1.100 H, Neut % (Auto) 62.8, Lymph % (Auto) 19.5, [place] % (Auto) 9.4, Eos % (Auto) 6.5 H, Baso % (Auto) 0.7, Absolute Neuts (auto) 2.8, Absolute Lymphs (auto) 0.87, Nucleated RBC % 0 08/22/21 06:10: Sodium 142, Potassium 4.3, Chloride 106, Carbon Dioxide 36.0 H, Anion Gap 0 L, BUN 19 H, Creatinine 0.94, Estim Creat Clear Calc 52.14, Est GFR (MDRD) Af Amer 102, Est GFR (MDRD) Non-Af 85, BUN/Creatinine Ratio 20.2 H, Glucose 75, Calcium 8.4 L 08/22/21 06:10: B-Natriuretic Peptide 139.6 H Micro: Microbiology 08/13/21 10:45 Stool Stool Occult Blood (LU) - Final 08/14/21 Unknown Fluid - Thoracentesis Fluid Gram Stain - Final 08/14/21 Unknown Fluid - Thoracentesis Fluid Body Fluid Culture - Final No growth aerobically. 08/14/21 Unknown Fluid - Thoracentesis Fluid Anaerobic Culture - Final No growth in 5 days. 08/14/21 01:10 Blood Culture (Wb) - Left Hand Blood Culture - Final No growth in 5 days. 08/14/21 01:02 Blood Culture (Wb) - Anticubital Right Blood Culture - Final No growth in 5 days. 08/13/21 21:00 Urine, Clean Catch Legionella Antigen - Final 08/13/21 21:00 Urine, Clean Catch Streptococcus pneumoniae Antigen (M - Final 08/13/21 18:30 Sputum, Induced/Lukens Gram Stain - Final 08/13/21 18:30 Sputum, Induced/Lukens Respiratory Culture - Final Klebsiella pneumoniae sp pneum Gram positive joann 08/13/21 17:51 Mucosa - Nose Influenza Types A,B Direct FA (LU) - Final Physical Exam Const alert, oriented x3 and no apparent distress Orientation / Consciousness: lethargic Exam Limitations: no limitations HEENT normocephalic, head/scalp atraumatic and moist oral mucous membranes Head and Scalp: normocephalic Eyes PERRL, EOMs intact bilaterally and conjunctivae normal Neck no lymphadenopathy, supple and no JVD Resp normal respiratory effort, no retractions and no use of accessory muscles Resp Narrative: Diminished breath sounds bibasilarly. No wheezes or crackles. still On 10L of oxygen. Tracheostomy in place Auscultation: diminished lung sounds; Negative for crackles, rales, rhonchi or wheezes Cardio regular rate, regular rhythm, S1 normal heart sound, S2 normal heart sound and no murmurs GI normal to inspection, nondistended, normoactive bowel sounds, soft to palpation, non-tender and non-distended; Negative for hepatosplenomegaly GI Narrative: PEG tube in place Extremity normal to inspection, full ROM and no clubbing, cyanosis or edema Peripheral Pulses: Yes pulses 2+ throughout Skin no rashes or lesions noted and no wounds Neuro oriented x3, CN's II-XII intact bilaterally, moves all extremities, no focal motor deficits and no sensory deficits noted Sensorium / Orientation: awake and alert Psych Psych Narrative: flat affect Mood & Affect: flat affect Assessment & Plan Assessment/Plan (1) Pleural effusion, right: (2) Sepsis with acute hypoxic respiratory failure: PLAN: #Acute on chronic hypoxic and hypercapnic respiratory failure due to Klebsiella pneumonia and left pleural effusion * this is complicated by mucous plugging as well as patient is not compliant with managemeent * on IV zosyn; to complete a 7 day course of antibiotics * on breathing treatment with bronchodilators * titrate oxygen to maintain sats >90% * lasix prn * s/p thoracentesis which showed a transudative fluid. * still on 10L of oxygen today. * #COPD: not in exacerbation. On breathing treatment with bronchodilators #Depression and anxiety: on buspar and remeron. Also on zoloft #Chronic anemia; hb today is 7.9. His baseline is 8-9. Will monior. Stool for occult blood was negative. #Hypernatremia: * resolved. Na is down to 142 today. * On free water flushes with tube feeding. #Severe protein calorie malnutrition * nutrition on board. BMI is 16.8 * nutritional support via PEG tube with free water flushes * #History of paroxysmal afib: stable DVT prophylaxis: lovenox code status: * I did discuss CODE STATUS again with patient today. He said he did not want to be intubated but wanted CPR. I explained to patient that CPR and intubation usually go together. Also explained to him the differences between full code, DNR CCA and DNR CCA. Patient states he wants more time to think about it as he cannot make a full decision now. * CODE STATUS therefore remains full code for now * Total [id number] time 18 minutes * Charges/Coding Visit Charges Inpatient E&M: 08917 Subs Hosp L2 Procedures Hospitalists Procedures: 84874 Advncd Care Plan 30 Min
[2021-08-22] MEDS: Furosemide 40 MG/4 ML Vial IV (13:40)
[2021-08-22] MEDS: Ipratropium/Albuterol Sulfate 3 ML AMPUL.NEB INHALATION (19:25)
[2021-08-23] VITALS (17 sets, daily range): BP systolic 106–136; BP diastolic 65–78; PULSE 68–83; RESP 18–23; TEMP 36.3–36.9; O2SAT 91–99
[2021-08-23 05:46] LABS: Absolute Lymphocyte Count 0.87 X10^3/uL (0.83-4.51); Absolute Neutrophil Count 3.6 X10^3/uL (2.0-7.7); Basophil# 0.03 X10^3/uL; Basophil% 0.6 % (0-1); Eosinophil# 0.28 X10^3/uL; Eosinophils% 5.3 % (0-5); Hematocrit 24.8 % (40-54); Hemoglobin 8.2 g/dL (13.0-16.5); Lymphocyte # 0.87 X10^3/ul (0.83-4.51); Lymphocyte % 16.4 % (19-41); Mean Corp Hgb Conc 33.1 g/dL (32-36); Mean Corpuscular Hgb 31.4 pg (27.0-32.0); Mean Platelet Vol. 9.3 fl (6.2-12.0); Monocyte# 0.43 X10^3/uL; Monocyte% 8.1 % (0-10); NRBC Flagged by Analyzer 0 % (0-5); Neutrophil # 3.63 X10^3/uL (2.7-7.7); Neutrophil % 68.3 % (47-70); Platelet Count 226 K/mm3 (150-450); RBC Distribution Width CV 13.8 % (11.6-14.6); RBC Distribution Width SD 47.5 fl (35.1-43.9); Red Blood Count 2.61 M/mm3 (4.6-6.2); White Blood Count 5.3 K/mm3 (4.4-11.0)
--- NOTE | 2021-08-23 06:02 | CPS ---
pt decline use of bipap last night
[2021-08-23 06:09] LABS: Anion Gap 2 (5-15); BUN 19 mg/dL (7-18); BUN/Creat Ratio 17.9 RATIO (10-20); Calcium,Total 8.5 mg/dL (8.5-10.1); Chloride 104 mmol/L (98-107); Creatinine, Serum 1.06 mg/dL (0.70-1.30); EST Glomerular Filtration Rate 74 mL/min (>60); Est Glom Filt Rate - Afr Amer 89 mL/min (>60); Estimated Creatinine Clearance 46.24 ml/min; Glucose 81 mg/dL (74-106); Potassium 4.1 mmol/L (3.5-5.1); Sodium Level 142 mmol/L (136-145)
[2021-08-23] MEDS: Ipratropium/Albuterol Sulfate 3 ML AMPUL.NEB INHALATION (07:19)
[2021-08-23] MEDS: Potassium Chloride Oral Soln 20 MEQ/15 ML UDC 40 MEQ GT (09:05)
[2021-08-23] MEDS: Jevity 1.5. 1,000 ML Bottle 250 ML GT (09:05)
[2021-08-23] MEDS: Famotidine 20 MG Tablet PO ×2 (09:06→21:04)
[2021-08-23] MEDS: Sertraline 100 MG Tablet PO (09:07)
[2021-08-23] MEDS: Enoxaparin 30 MG/0.3 ML Syringe SC (09:07)
--- NOTE | 2021-08-23 09:25 | NURSING ---
disc with pt his continued refusal of treatment but statement he wants to live. disc how his refusal keeps [facility] from being able to help him/save his life, how his desire to only do what he wants is resulting in him slowly dying. This RN asked him to consider this today and we would revisit this discussion this afternoon.
--- NOTE | 2021-08-23 09:41 | PN.CC_ITS ---
Assessment & Plan Assessment/Plan (1) Pleural effusion, right: PLAN: RECOMMENDATIONS: 1. Recommend AVAPS therapy via mask or trach with naps and nightly. 2. Wean supplemental oxygen to maintain saturations at or above 90%. 3. Continue nutritional support via PEG tube. 4. Continue antimicrobials to complete 7-day treatment course. 5. Continue aggressive bronchopulmonary hygiene. 6. Continue scheduled bronchodilators. 7. Attempt diuresis again today. IMPRESSIONS: 1. Acute combined on chronic hypoxemic respiratory failure secondary to Klebsi rubina pneumonia and pleural effusion The patient has a baseline medical history including COPD and chronic hypoxemic respiratory failure. Plan to continue supportive measures including aggressive bronchopulmonary hygiene and antimicrobials to complete 7 days of therapy. Wean supplemental oxygen to maintain saturations at or above 90%. The patient has been noncompliant with the use of nocturnal Pap therapy. I would strongly urge that AVAPS therapy be utilized with naps and nightly. Plan to continue scheduled bronchodilator therapy while awake. IV Lasix will be administered again today as well. 2. Recent prolonged hospitalization with empyema leading to tracheostomy and PEG Continue supportive measures as noted above. Speech therapy recommended modified diet. Nutritional support via PEG tube can be entertained in the interim. 3. History of COPD/paroxysmal atrial fibrillation/malnutrition/history of alcohol and tobacco dependency Complicates care, management, recovery and prognosis. Continue supportive measures as noted above. Physical therapy to work with the patient. This note was generated with [employer] dictation software. It may contain incorrect words, spelling, and punctuation that were not noted in checking the note before signing. Subjective Subjective The patient was seen and examined at the bedside this morning. Events from the last 24 hours have been reviewed. The patient is currently afebrile, hemodynamically stable and maintaining appropriate oxygen saturations on 9 L/min high flow cannula. The patient is documented to be overall net +1.4 L for the hospitalization. He remains on antimicrobials and scheduled bronchodilator therapy. He did receive IV Lasix yesterday. Creatinine is stable. The patient continues to refuse to utilize overnight Pap therapy. Objective Data Objective Data The patient's most recent lab work, culture data and imaging studies have all been personally reviewed. Surface echocardiogram from February 2021 demonstrated normal LV size and function with an ejection fraction of 50% and a pulmonary artery systolic pressure estimated to be 50 mmHg. Sputum culture dated August 13 was positive for Klebsiella pneumoniae. Vital Signs: Vital Signs Temp Pulse Resp BP Pulse Ox 98.2 F 77 23 H 128/69 H 91 08/23/21 08:00 08/23/21 08:00 08/23/21 08:00 08/23/21 08:00 08/23/21 08:00 Oxygen Flow Rate (L/min) [4] 15 Oxygen Flow Rate (L/min) [3] 15 Oxygen Flow Rate (L/min) [2] 15 Oxygen Flow Rate (L/min) [1 ( 15 Initial Baseline)] Oxygen Flow Rate (L/min) [3] 8 Oxygen Flow Rate (L/min) [2] 8 Oxygen Flow Rate (L/min) [1 ( 8 Initial Baseline)] Oxygen Flow Rate (L/min) 9 Oxygen Delivery Method [4] High Flow Oxygen Delivery Method [3] High Flow Oxygen Delivery Method [2] High Flow Oxygen Delivery Method [1 ( High Flow Initial Baseline)] Oxygen Delivery Method [3] Nasal Cannula Oxygen Delivery Method [2] Nasal Cannula Oxygen Delivery Method [1 ( Nasal Cannula Initial Baseline)] Oxygen Delivery Method High Flow Weight: 46.8 kg Body Mass Index (BMI) 17.6 Intake & Output: Intake and Output for Last 24 Hours 08/21/21 08/22/21 08/23/21 23:59 23:59 23:59 Intake Total 2053.75 / 2053.75 2050 / 2050 500 / 500 Output Total 1125 / 1125 1950 / 1950 200 / 200 Balance 928.75 / 928.75 100 / 100 300 / 300 Medical Nutrition Assessment Dietitian: Malnutrition Criteria Met Start: 08/14/21 10:16 Freq: Status: Active Protocol: Document 08/17/21 08:32 ELLEN (Rec: 08/17/21 08:32 [facility] [id number]) Nutrition Malnutrition Evidence of Malnutrition Exists Yes Malnutrition (severe): Chronic Evidenced By Suboptimal Energy Intake ( Severe),Weight Loss (Severe), Physical Changes (Severe) Clinical Problem Chronic Disease or Condition Related Malnutrition Etiology severe, chronic malnutrition r /t inadequate energy intake d/ t swallowing difficulty, increased energy needs d/t chronic resp. failure Signs/Symptoms as evidenced by estimated PO intake meeting <75% of estimated energy needs >3 months; obvious signs of severe muscle/fat wasting in the face, orbital and temporal regions per physical exam; BMI 17.3; apparent wt loss of 8.2% x 9 days per EMR Status Active Problem Recommendation Dietitian Recommendations/Changes 1) Will continue bolus enteral nutrition support to 250mL Jevity 1.5 4x/day via PEG w/ 200mL H2O flush w/ each bolus to provide 1500 calories, 63.8 g protein, and 1560mL total fluid/day. 2) Regular diet if appropriate per SPORTS TEAM MARKETING INTERN. Texture/consistency modifications per SPORTS TEAM MARKETING INTERN. 3) Daily wts. Recommend close monitoring of electrolytes given risk for refeeding syndrome. Lab / Micro Data Attestation: I reviewed the patient's lab results. Result Diagrams: 08/23/21 05:38 08/23/21 05:38 Labs: Laboratory Results - last 24 hr 08/22/21 06:10: B-Natriuretic Peptide 139.6 H 08/23/21 05:38: WBC 5.3, RBC 2.61 L, Hgb 8.2 L, Hct 24.8 L, MCV 95.0 H, MCH 31.4, MCHC 33.1, RDW Std Deviation 47.5 H, RDW Coeff of Vita 13.8, Plt Count 226, MPV 9.3, Immature Gran % (Auto) 1.300 H, Neut % (Auto) 68.3, Lymph % (Auto) 16.4 L, [place] % (Auto) 8.1, Eos % (Auto) 5.3 H, Baso % (Auto) 0.6, Absolute Neuts (auto) 3.6, Absolute Lymphs (auto) 0.87, Nucleated RBC % 0 08/23/21 05:38: Sodium 142, Potassium 4.1, Chloride 104, Carbon Dioxide 36.0 H, Anion Gap 2 L, BUN 19 H, Creatinine 1.06, Estim Creat Clear Calc 46.24, Est GFR (MDRD) Af Amer 89, Est GFR (MDRD) Non-Af 74, BUN/Creatinine Ratio 17.9, Glucose 81, Calcium 8.5 Micro: Microbiology 08/13/21 10:45 Stool Stool Occult Blood (LU) - Final 08/14/21 Unknown Fluid - Thoracentesis Fluid Gram Stain - Final 08/14/21 Unknown Fluid - Thoracentesis Fluid Body Fluid Culture - Final No growth aerobically. 08/14/21 Unknown Fluid - Thoracentesis Fluid Anaerobic Culture - Final No growth in 5 days. 08/14/21 01:10 Blood Culture (Wb) - Left Hand Blood Culture - Final No growth in 5 days. 08/14/21 01:02 Blood Culture (Wb) - Anticubital Right Blood Culture - Final No growth in 5 days. 08/13/21 21:00 Urine, Clean Catch Legionella Antigen - Final 08/13/21 21:00 Urine, Clean Catch Streptococcus pneumoniae Antigen (M - Final 08/13/21 18:30 Sputum, Induced/Lukens Gram Stain - Final 08/13/21 18:30 Sputum, Induced/Lukens Respiratory Culture - Final Klebsiella pneumoniae sp pneum Gram positive joann 08/13/21 17:51 Mucosa - Nose Influenza Types A,B Direct FA (LU) - Final Physical Exam Const no apparent distress General Appearance: cooperative and lethargic Nutritional Appearance: thin HEENT normocephalic and head/scalp atraumatic Eyes PERRL and EOMs intact bilaterally Neck supple Neck Narrative: Tracheostomy site is C/D/I. General: trachea midline Chest inspection of chest normal Resp Auscultation: diminished lung sounds; Negative for rales, rhonchi or wheezes Cardio regular rate and regular rhythm GI normal to inspection, nondistended, normoactive bowel sounds Inspection: GI tube present Extremity no clubbing, cyanosis or edema Skin no rashes or lesions noted Neuro CN's II-XII intact bilaterally and no focal motor deficits Psych Mood & Affect: flat affect Charges/Coding Visit Charges Inpatient E&M: 42446 Subs Hosp L2
[2021-08-23] MEDS: Furosemide 40 MG/4 ML Vial IV (10:57)
--- NOTE | 2021-08-23 11:22 | CASEMGMT ---
Palliative screening tool completed and pt qualifies, Dr. Aguilar agreeable. Order placed and referral e-mailed. Gian RAUSCH CM
--- NOTE | 2021-08-23 12:34 | PN.HOSP_ITS ---
Subjective Subjective Patient seen and examined. He remains on 10L of oxygen. He complains of feeling weak and tired. He has no active complaints otherwise. He has been refusing to cooperate with care, and is refusing food and his tube feeds as well. I spoke to his mom extensively yesterday about goals of care. She expressed frustration with his refusal of care, and says he has a brother and son who she would like to have their input also; however since he was alert and oriented, he woold have to make his own decisions. Objective Data Objective Data Vital Signs: Vital Signs Temp Pulse Resp BP Pulse Ox 98.4 F 76 19 H 109/65 99 08/23/21 10:54 08/23/21 11:00 08/23/21 10:54 08/23/21 10:54 08/23/21 10:54 Oxygen Flow Rate (L/min) [4] 15 Oxygen Flow Rate (L/min) [3] 15 Oxygen Flow Rate (L/min) [2] 15 Oxygen Flow Rate (L/min) [1 ( 15 Initial Baseline)] Oxygen Flow Rate (L/min) [3] 8 Oxygen Flow Rate (L/min) [2] 8 Oxygen Flow Rate (L/min) [1 ( 8 Initial Baseline)] Oxygen Flow Rate (L/min) 9 Oxygen Delivery Method [4] High Flow Oxygen Delivery Method [3] High Flow Oxygen Delivery Method [2] High Flow Oxygen Delivery Method [1 ( High Flow Initial Baseline)] Oxygen Delivery Method [3] Nasal Cannula Oxygen Delivery Method [2] Nasal Cannula Oxygen Delivery Method [1 ( Nasal Cannula Initial Baseline)] Oxygen Delivery Method Nasal Cannula Weight: 103 lb 2.821 oz Body Mass Index (BMI) 17.6 Intake & Output: Intake and Output for Last 24 Hours 08/21/21 08/22/21 08/23/21 23:59 23:59 23:59 Intake Total 2053.75 / 2053.75 2050 / 0 550 / 550 Output Total 1125 / 1125 1950 / 1950 400 / 400 Balance 928.75 / 928.75 100 / 100 150 / 150 Medical Nutrition Assessment Dietitian: Malnutrition Criteria Met Start: 08/14/21 10:16 Freq: Status: Active Protocol: Document 08/17/21 08:32 ELLEN (Rec: 08/17/21 08:32 [facility] [id number]) Nutrition Malnutrition Evidence of Malnutrition Exists Yes Malnutrition (severe): Chronic Evidenced By Suboptimal Energy Intake ( Severe),Weight Loss (Severe), Physical Changes (Severe) Clinical Problem Chronic Disease or Condition Related Malnutrition Etiology severe, chronic malnutrition r /t inadequate energy intake d/ t swallowing difficulty, increased energy needs d/t chronic resp. failure Signs/Symptoms as evidenced by estimated PO intake meeting <75% of estimated energy needs >3 months; obvious signs of severe muscle/fat wasting in the face, orbital and temporal regions per physical exam; BMI 17.3; apparent wt loss of 8.2% x 9 days per EMR Status Active Problem Recommendation Dietitian Recommendations/Changes 1) Will continue bolus enteral nutrition support to 250mL Jevity 1.5 4x/day via PEG w/ 200mL H2O flush w/ each bolus to provide 1500 calories, 63.8 g protein, and 1560mL total fluid/day. 2) Regular diet if appropriate per GROUP EXERCISE INSTRUCTOR. Texture/consistency modifications per GROUP EXERCISE INSTRUCTOR. 3) Daily wts. Recommend close monitoring of electrolytes given risk for refeeding syndrome. Lab / Micro Data Result Diagrams: 08/23/21 05:38 08/23/21 05:38 Labs: Laboratory Results - last 24 hr 08/23/21 05:38: WBC 5.3, RBC 2.61 L, Hgb 8.2 L, Hct 24.8 L, MCV 95.0 H, MCH 31. 4, MCHC 33.1, RDW Std Deviation 47.5 H, RDW Coeff of Vita 13.8, Plt Count 226, MPV 9.3, Immature Gran % (Auto) 1.300 H, Neut % (Auto) 68.3, Lymph % (Auto) 16.4 L, Lowndes % (Auto) 8.1, Eos % (Auto) 5.3 H, Baso % (Auto) 0.6, Absolute Neuts (auto) 3.6, Absolute Lymphs (auto) 0.87, Nucleated RBC % 0 08/23/21 05:38: Sodium 142, Potassium 4.1, Chloride 104, Carbon Dioxide 36.0 H, Anion Gap 2 L, BUN 19 H, Creatinine 1.06, Estim Creat Clear Calc 46.24, Est GFR (MDRD) Af Amer 89, Est GFR (MDRD) Non-Af 74, BUN/Creatinine Ratio 17.9, Glucose 81, Calcium 8.5 Micro: Microbiology 08/13/21 10:45 Stool Stool Occult Blood (LU) - Final 08/14/21 Unknown Fluid - Thoracentesis Fluid Gram Stain - Final 08/14/21 Unknown Fluid - Thoracentesis Fluid Body Fluid Culture - Final No growth aerobically. 08/14/21 Unknown Fluid - Thoracentesis Fluid Anaerobic Culture - Final No growth in 5 days. 08/14/21 01:10 Blood Culture (Wb) - Left Hand Blood Culture - Final No growth in 5 days. 08/14/21 01:02 Blood Culture (Wb) - Anticubital Right Blood Culture - Final No growth in 5 days. 08/13/21 21:00 Urine, Clean Catch Legionella Antigen - Final 08/13/21 21:00 Urine, Clean Catch Streptococcus pneumoniae Antigen (M - Final 08/13/21 18:30 Sputum, Induced/Lukens Gram Stain - Final 08/13/21 18:30 Sputum, Induced/Lukens Respiratory Culture - Final Klebsiella pneumoniae sp pneum Gram positive joann 08/13/21 17:51 Mucosa - Nose Influenza Types A,B Direct FA (LU) - Final Physical Exam Const alert, oriented x3 and no apparent distress Orientation / Consciousness: lethargic Exam Limitations: no limitations HEENT normocephalic, head/scalp atraumatic and moist oral mucous membranes Head and Scalp: normocephalic Eyes PERRL, EOMs intact bilaterally and conjunctivae normal Neck no lymphadenopathy, supple and no JVD Resp Resp Narrative: Diminished breath sounds bibasilarly. No wheezes or crackles. still On 10L of oxygen. Tracheostomy in place Auscultation: diminished lung sounds; Negative for crackles, rales, rhonchi or w heezes Cardio regular rate, regular rhythm, S1 normal heart sound, S2 normal heart sound and no murmurs GI normal to inspection, nondistended, normoactive bowel sounds, soft to palpation, non-tender and non-distended; Negative for hepatosplenomegaly GI Narrative: PEG tube in place Extremity normal to inspection, full ROM and no clubbing, cyanosis or edema Skin no rashes or lesions noted and no wounds Neuro oriented x3, CN's II-XII intact bilaterally, moves all extremities, no focal motor deficits and no sensory deficits noted Sensorium / Orientation: awake and alert Psych Psych Narrative: flat affect Mood & Affect: flat affect Assessment & Plan Assessment/Plan (1) Pleural effusion, right: (2) Sepsis with acute hypoxic respiratory failure: PLAN: #Acute on chronic hypoxic and hypercapnic respiratory failure due to Klebsiella pneumonia and left pleural effusion * this is complicated by mucous plugging as well as patient is not compliant with managemeent * on IV zosyn; to complete a 7 day course of antibiotics * on breathing treatment with bronchodilators * titrate oxygen to maintain sats >90% * lasix prn * s/p thoracentesis which showed a transudative fluid. * still on 10L of oxygen today. * pulmonology recommends AVAPS therapy qhs and with naps. * #COPD: not in exacerbation. On breathing treatment with bronchodilators #Depression and anxiety: on buspar and remeron. Also on zoloft #Chronic anemia; hb today is 7.9. His baseline is 8-9. Will monior. Stool for occult blood was negative. #Hypernatremia: * resolved. Na is still 142 today. * On free water flushes with tube feeding. #Severe protein calorie malnutrition * nutrition on board. BMI is 16.8 * nutritional support via PEG tube with free water flushes * #History of paroxysmal afib: stable DVT prophylaxis: lovenox code status: * I discussed code liters again with him today. I informed patient about the conversation I had with his mother regarding goals of care. Patient again stated he did not want to be intubated. I counseled him that this would not change the change of CODE STATUS to DNR CCA. Patient stated he did not want to change his CODE STATUS and would want to remain full code. I clarified that remaining full code would mean he would have to be on the ventilator if needed and would need CPR. Patient said he agreed to being full code and expressed understanding that he would have to have CPR and intubation if needed. * code status clarified as full code. * Total [id number] time 17 minutes * Charges/Coding Visit Charges Inpatient E&M: 08508 Subs Hosp L2 Procedures Hospitalists Procedures: 03742 Advncd Care Plan 30 Min
--- NOTE | 2021-08-23 14:31 | CASEMGMT ---
Patient continues to refuse care. Numerous people have spoken to patient about his goals. Patient wants everything done. However, he continues to refuse everything. SW went to patient's room. His mom was present. SW explained that we feel it would be beneficial to have a family meeting to discuss moving forward with his care. Patient stated he only wants his mom. SW and his mom both asked if he wanted his son or brother and patient stated he only wants his mom. Patient's mom said she can come in whenever. Physician preferred before noon. SW set the meeting for 10am tomorrow. SW spoke with physician and let her know this information. (SW did talk with physician prior to arranging meeting and she was in agreement). PILI notified RN, RN CM, physician, and ecological technical officer. Rachel NELSON
--- NOTE | 2021-08-23 14:41 | CASEMGMT ---
Pt has been refusing meds, tube feeds, bipap, and therapy throughout this admission and last admission. Pt's mother has also been contributing as she declines therapy for pt at times. This RN CM to room and pt is A/Ox4 and states he would like to be the person making decisions for himself at this time. This RN CM asked pt about refusing care and what his goals of care are at this time. Pt states that he would like to get better and pt aware that he needs to quit refusing care, specifically all meds, tube feeds, bipap, and therapy. Pt voices understanding. Pt has been NPO this admission but has been refusing tube feeds so this RN CM inquired as to why pt refusing and he states he doesn't want to be woken up for the TF's and he doesn't want to see the TF because 'It's gross!' This RN CM spoke with pt's RN and cultural historian and pt being switched to continuous TF at this time. Pt states he will comply with all meds, cont TF, bipap, and therapy at this time. Dr. Aguilar and Dilma RN updated on all, voice understanding. Pt is aware of palliative c/s and that they will be coming to speak with him. SStmaeve RN CM
--- NOTE | 2021-08-23 15:11 | PCM.CONS.P ---
Assessment & Plan Assessment/Plan (1) Dyspnea: (2) Anxiety: (3) Debility: PLAN: Ted Gilliam is a 70-year-old male with multiple chronic conditions, who is evaluated by palliative medicine today for outpatient symptom management and care coordination. Upon entering his room for initial evaluation, he stated that he needed help using the urinal, for which he was assisted in calling for help from staff. Upon returning to his room, he was resting with his eyes closed, and requested that I come back later. Extensive review of records was completed, as well as discussion with his nurse, Estrella, and his correctional case manager, Susan. I have left a business card at patient's bedside. We will attempt to follow-up prior to his discharge, if time allows, or will follow up with him as an outpatient. He is certainly a candidate for ongoing palliative care even at the SNF ([facility]) following his discharge. In fact, if he elects to not pursue aggressive treatment and changes his mind about his CODE STATUS, he would be appropriate for hospice care given the severity of his multiple medical conditions. 1. Dyspnea secondary to pleural effusion, PNA, and acute on chronic respiratory failure. Encourage compliance with suctioning, AVAPS recommendations, oxygen, and nebulizer treatments. Would consider symptom management with low-dose morphine therapy to help with respiratory distress and work of breathing after risk evaluation. 2. Anxiety: Continue BuSpar and sertraline as ordered. Patient is unsure if he is ever used or tried a benzodiazepine, but again this may be appropriate given the severity of his illness and shortness of breath. Would consider trial of low-dose Ativan to help with anxiety and insomnia, if morphine therapy as noted above was ineffective. 3. Debility: Continue to work with PT and OT. In conjunction with his malnutrition and cachexia, his limited mobility is putting him at very high risk for skin breakdown. Thank you for the opportunity to participate in this patient's care. Please do not hesitate to contact [facility] with any further questions or concerns. Palliative direct line is [phone]. We will follow and have the liaison contact the significant other following his hospital discharge to set up home appointment. Start time: 1511 Stop time: 1550 HPI Consult Data Date of Consult: 08/23/21 HPI Narrative HPI Narrative: TED GILLIAM, is a 70 M who presented to [facility] emergency department on 08/13/2021 from [facility] with shortness of breath and was subsequently only admitted for acute on chronic respiratory failure secondary to worsening left-sided pleural effusion. He does have a trach but is noncompliant at the facility with suctioning and has had multiple recurrent mucus plugs requiring trips to the ED. He also has a PEG tube secondary to chronic dysphagia with aspiration, and is noncompliant with tube feeds. Past medical history includes COPD, hypertension, alcohol abuse, anxiety, atrial fibrillation, and chronic combined respiratory failure. He is chronically dyspneic, even with minimal exertion. Sajan is very weak, frail, and debilitated. He is not permitted to have oral intake and often refuses his tube feedings at the facility, thus he is cachectic and chronically malnourished with a BMI 15.2 currently. He appears cognitively intake, though he does have poor insight and is inconsistent with his healthcare decisions. Patient is participating with PT and OT. He has allowed ST to evaluate him and is possibly agreeable to MBS. Letterer has met with him, and will recommend continuous tube feeding because he does not wish to be woken at night for feeding and does not want to see the tube feed because it grosses me out. He wishes to remain a full code, but often refuses treatments and medications when ordered/offered. Palliative has been consulted to assist with symptom management and care coordination after patient is discharged back to [facility]. [facility] Medical History (Updated 08/23/21 @ 16:08 by PATRICK Motta) Acute on chronic respiratory failure with hypoxia and hypercapnia Alcohol abuse Anxiety Atrial fibrillation (03/19/21) Chronic respiratory failure COPD (chronic obstructive pulmonary disease) Dysphagia Former smoker Hypertension Insomnia Tracheostomy in place Vision loss of left eye Vision loss of right eye Home Medications albuterol sulfate 90 mcg/actuation aerosol inhaler 2 puff INHALATION Q4H PRN #8.5 g 05/23/20 [Rx Last Taken 03/18/21] buspirone 15 mg PO TID PRN 07/27/21 [History Last Taken Unknown] famotidine 20 mg PO BID 07/27/21 [History Last Taken Unknown] guaifenesin 200 mg PO Q4H PRN 07/27/21 [History Last Taken Unknown] loperamide 2 mg PO Q6H PRN 07/27/21 [History Last Taken Unknown] magnesium oxide 400 mg PO DAILY 07/27/21 [History Last Taken Unknown] mirtazapine [Remeron] 7.5 mg PO QHS 07/27/21 [History Last Taken Unknown] acetaminophen [Tylenol] 650 mg PO Q4H PRN PRN #0 tab 08/08/21 [Rx Last Taken Unknown] enoxaparin 30 mg SUBCUT DAILY #0 ml 08/08/21 [Rx Last Taken Unknown] lactose-reduced food with fibr [Jevity 1.5 Gamal] 250 ml G-TUBE TIDPC #0 ml 08/08/21 [Rx Last Taken Unknown] potassium, sodium phosphates 1 packet G-TUBE TID #6 ea 08/08/21 [Rx Last Taken Unknown] sertraline 50 mg PO DAILY #0 tab 08/08/21 [Rx Last Taken Unknown] guaifenesin 200 mg PO Q4H PRN 08/13/21 [History Last Taken Unknown] Allergy/AdvReac Type Severity Reaction Status Date / Time No Known Allergies Allergy Verified 07/27/21 18:52 Family History Father BPH (benign prostatic hyperplasia) Grandfather BPH (benign prostatic hyperplasia) Surgical History H/O nasal septoplasty History of suburethral sling procedure History of thoracic surgery PEG (percutaneous endoscopic gastrostomy) status S/P TURP Social History housing: residential Smoking Status: Former smoker quit date: 03/30/20 pack-years: 50 Tobacco: How many years used: 50 how long ago did patient quit smoking: Smoked since 01/28/1967m 1 ppd until quit. alcohol intake: former substance use type: does not use ROS Constitutional Constitutional: Reports as per HPI Physical Exam Const alert and oriented x3 General Appearance: ill appearing and appears older than stated age; Negative for uncooperative Orientation / Consciousness: awake Nutritional Appearance: cachectic HEENT normocephalic; Negative for moist oral mucous membranes
--- NOTE | 2021-08-23 15:58 | SP.MBSS_ITS ---
Modified Barium Swallow - Patient Information Study Date: 08/23/21 Study Time: 13:00 Direct Billable Minutes: 110 Total Minutes procedure & reportin Diagnosis: Sepsis with acute hypoxic respiratory failure (A41.9) Referring Physician: Kailey Aguilar Reason for Referral: Objectively assess swallow function, risk for aspiration, and determine recommendations for least restrictive diet texture and compensatory strategies to improve safety of swallow. Medical History: The patient presented to [facility] ED with respiratory distress on 08/13/2021. He was admitted for management of acute respiratory failure. The patient had recent MBS study completed 07/31/21 with the following recommendations: Puree Textures, [place]-thick Liquids. Compensatory Strategies: Small Bites - by Teaspoon Only, Liquid by Teaspoon Only, Multiple Swallows - 3 swallows per bite of puree, Alternate bites/solids and sips/liquids, Sitting upright, Remain sitting upright for 30 minutes after PO intake, 1:1 Close Supervision. He participated in BSE with speech therapy on 08/15/2021. He was recommended to remain NPO. He requested thin liquids, but was not a candidate for [place] Free Water Protocol (FFWP) due to poor follow through with oral care and noncompliance with safe bolus size considering patient is a known silent aspirator of thin liquids. JUDICIAL REPORTER with concern for worsening respiratory failure or aspiration related illness if implementation of FFWP. Pt intermittently participates in speech therapy and is currently permitted ice chips after thorough oral care and with total assistance to ensure safe trial size. He has consumed limited trials of nectar thick and puree textures as he typically refuses modified diet textures. JUDICIAL REPORTER recommended patient for repeat MBS study to objectively assess aspiration risk and determine safety of swallow of thin liquids. Additionally, will assess pt for least restrictive diet textures and recommended aspiration precautions. [facility] Alcohol abuse Anxiety Atrial fibrillation (03/19/21) Chronic respiratory failure COPD (chronic obstructive pulmonary disease) Former smoker Hypertension Insomnia Tracheostomy in place Vision loss of left eye Vision loss of right eye Current Diet Ordered: NPO with PEG tube, ice chips one at a time Dentition: Missing Teeth Mental Status: WNL Respiratory Status: Oxygenating on 4L/M nasal cannula - 15L O2/min via nasal cannula - Penetration-Aspiration Scale Penetration-Aspiration Scale: OBJECTIVE ASSESSMENT OF SWALLOW FUNCTION (QUANTITATIVE ? PER TRIAL): PENETRATION / ASPIRATION SCALE (SHAVER): 1 = does not enter airway 2 = enters airway/above vocal folds/ejected 3 = enters airway/above vocal folds/not ejected 4 = enters airway/contacts vocal folds/ejected 5 = enters airway/contacts vocal folds/not ejected 6 = enters airway/below vocal folds/ejected 7 = enters airway/below vocal folds/not ejected despite effort 8 = enters airway/below vocal folds/no effort VIDEOFLOROSCOPIC SCALE SCORE (SHAVER): Grade I = aspiration of material that has penetrated into the laryngeal vestibule, intact cough reflex Grade II = aspiration < 10 % of the bolus, intact cough reflex Grade III = aspiration of < 10 % of the bolus, reduced cough reflex or aspiration of > 10 % of the bolus, intact cough reflex Grade IV = aspiration of > 10 % of the bolus, reduced cough reflex - Penetration-Aspiration Scale Score Thin Liquid via teaspoon Result: 8= enters airway/below vocal folds/no effort Comment: Grade IV = aspiration of > 10 % of the bolus, no cough reflex Thin Liquid via teaspoon Trial 2 Result: 7= enters airways/below vocal folds/not ejected despite effort Comment: Grade IV = aspiration of > 10 % of the bolus, reduced cough reflex Thin Liquid via small single sip from cup Result: 8= enters airway/below vocal folds/no effort Comment: Grade IV = aspiration of > 10 % of the bolus, no cough reflex Thin Liquid via teaspoon Effortful swallow Result: 2= enter airway/above vocal folds/ejected Thin Liquid via teaspoon Effortful swallow Trial 2 Result: 1= does not enter airway Thin Liquid via small single sip from cup Effortful swallow Result: 7= enters airways/below vocal folds/not ejected despite effort - The patient refused all additional trials. Comment: Grade IV = aspiration of > 10 % of the bolus, reduced cough reflex - Oral Phase Labial Seal: Escape beyond mid-chin Tongue Control During Bolus Hold: Posterior escape of less than half of bolus Bolus Preparation/Mastication: Minimal chewing/mashing with majority of bolus unchewed - Did not test due to patient refusal. Bolus Transport/Lingual Motion: Delayed initiation of tongue motion Oral Residue: Residue collection on oral structures - Pharyngeal Phase Initiation of Pharyngeal Swallow: Bolus head in pyriforms Soft Palate Elevation: No bolus between soft palate and pharyngeal wall Laryngeal Elevation: Partial superior movement thyroid cart/partial apprx aryt- epig petiole Anterior Hyoid Excursion: Partial anterior movement Epiglottic Movement: Partial inversion Laryngeal Vestibule Closure at Height of Swallow: None; wide column of air/contrast in laryngeal vestibule - Mod-severe deficits in laryngeal elevatio n. Patient did demonstrate some laryngeal elevation; however, significant column of aspirated contrast present. SEE photo attached below. Pharyngoesophageal Segment Opening: Parital distension and partial duration; parital obstruction of flow Tongue Base Retraction: Trace column of contrast between tongue base & post. pharyngeal wall Pharyngeal Residue: Collection of residue within or on pharyngeal structures - Treatment Strategies Effects of treatment strategies attemped:: Effortful swallow = somewhat effective. Decreased bolus size = somewhat effective. - Diagnosis/Impression Diagnosis: Severe oropharyngeal phase dysphagia (R13.12) Impression: The oral phase is marked by poor bolus control with premature posterior loss of thin liquid trials to the pyriforms and into the laryngeal vestibule prior to swallow onset, resulting in aspiration prior to the swallow. He presented with decreased airway closure during the swallow due to decreased laryngeal elevation and anterior hyoid excursion. He had SILENT aspiration of thin liquids via cup and tsp before and during the swallow. With use of effortful swallow for tsp sips of thin liquid, the patient greatly improve closure of the laryngeal vestibule and demonstrated just trace penetration of contrast into the laryngeal vestibule with full ejection. Due to extent of aspiration during the swallow, JUDICIAL REPORTER requested checking SpO2 via pulse ox; however, pt declined. He refused additional trials of thickened liquids or pudding trials to assess aspiration risk to determine diet advancement. SEE aspiration of thin liquids via cup below. - Recommendations Diet: NPO Comment: All nutrition to be provided via PEG tube. Ok for tsp sips of water with TOTAL FEED from nursing staff or JUDICIAL REPORTER only after thorough oral care and with use of hard swallows. Monitor SpO2 closely with trials and discontinue if pt unable to follow through with oral care, recommended sip size, use of hard swallow, or drop in oxygen saturations. Recommend Repeat Modified Barium Swallow: TBD Need for Skilled Speech Therapy Services: Yes Comment: The patient requires intensive dysphagia therapy to address severe deficits in oropharyngeal swallow function. Would strongly consider the patient for oropharyngeal strengthening to improve lingual coordination and strength, laryngeal elevation, hyoid excursion, and duration of UES opening as patient is willing to participate. The patient would benefit from thorough education regarding diet recommendations and recommended compensatory strategies. Would not recommend patient for diet upgrade without repeat MBS study following 4-8 weeks of intensive dysphagia therapy for oropharyngeal strengthening. Education Completed: 1. Described result of evaluation. - Reviewed results and recommendations with pt, pt's mother, RN, and director of casework. Wrote recommendations on communication white board in the patient's room., 7. Pt requires further education on strategies & risks., 8. Family/caregivers require further education on strategies & risks. - Status Active ST Patient: Active - Contact Information [facility] Speech Therapy:: Jelena Hernandez M.A. [facility]-JUDICIAL REPORTER Speech-Language Pathologist [facility] [address] [place] [address] [email or web address] [phone] 08/23/21 16:08
[2021-08-23] MEDS: Jevity 1.5 1,000 ML 45 ML GT (20:00)
[2021-08-23] MEDS: Mirtazapine 15 MG Tablet 7.5 MG PO (21:04)
[2021-08-24] VITALS (16 sets, daily range): BP systolic 103–149; BP diastolic 58–69; PULSE 73–85; RESP 18–27; TEMP 36.5–37.1; O2SAT 92–96
--- NOTE | 2021-08-24 05:35 | NURSING ---
Pt refused mouth care and Vaseline to lips. also refused to be turned. Pt did allow us to change him , change the bed linen and pulled up in bed.
[2021-08-24 06:42] LABS: Absolute Neutrophil Count 4.8 X10^3/uL (2.0-7.7); Basophil# 0.05 X10^3/uL; Basophil% 0.8 % (0-1); Eosinophil# 0.25 X10^3/uL; Eosinophils% 3.8 % (0-5); Hematocrit 26.8 % (40-54); Hemoglobin 8.7 g/dL (13.0-16.5); Lymphocyte % 12.2 % (19-41); Mean Corp Hgb Conc 32.5 g/dL (32-36); Mean Corpuscular Volume 95.4 fL (80-94); Mean Platelet Vol. 10.2 fl (6.2-12.0); Monocyte# 0.55 X10^3/uL; Monocyte% 8.4 % (0-10); NRBC Flagged by Analyzer 0 % (0-5); Neutrophil % 73.4 % (47-70); Platelet Count 235 K/mm3 (150-450); RBC Distribution Width CV 14.2 % (11.6-14.6); RBC Distribution Width SD 48.9 fl (35.1-43.9); Red Blood Count 2.81 M/mm3 (4.6-6.2); White Blood Count 6.5 K/mm3 (4.4-11.0)
[2021-08-24] MEDS: Ipratropium/Albuterol Sulfate 3 ML AMPUL.NEB INHALATION ×3 (07:02→20:22)
[2021-08-24 07:07] LABS: Anion Gap 3 (5-15); BUN 22 mg/dL (7-18); BUN/Creat Ratio 20.6 RATIO (10-20); Calcium,Total 8.6 mg/dL (8.5-10.1); Chloride 103 mmol/L (98-107); Creatinine, Serum 1.07 mg/dL (0.70-1.30); EST Glomerular Filtration Rate 73 mL/min (>60); Est Glom Filt Rate - Afr Amer 88 mL/min (>60); Estimated Creatinine Clearance 43.13 ml/min; Glucose 137 mg/dL (74-106); Sodium Level 142 mmol/L (136-145)
[2021-08-24] MEDS: Potassium Chloride Oral Soln 20 MEQ/15 ML UDC 40 MEQ GT (08:29)
[2021-08-24] MEDS: Enoxaparin 30 MG/0.3 ML Syringe SC (08:29)
[2021-08-24] MEDS: Sertraline 100 MG Tablet PO (08:29)
[2021-08-24] MEDS: Famotidine 20 MG Tablet PO ×2 (08:30→21:25)
--- NOTE | 2021-08-24 09:39 | PCM.PN.INT ---
Assessment & Plan Assessment/Plan (1) Pleural effusion, right: PLAN: RECOMMENDATIONS: 1. Recommend AVAPS therapy via mask or trach with naps and nightly. 2. Wean supplemental oxygen to maintain saturations at or above 90%. 3. Continue nutritional support via PEG tube. 4. Continue antimicrobials to complete 7-day treatment course. 5. Continue aggressive bronchopulmonary hygiene. 6. Continue scheduled bronchodilators. 7. Agree that hospice would be appropriate. IMPRESSIONS: 1. Acute combined on chronic hypoxemic respiratory failure secondary to Klebsiella pneumonia and pleural effusion The patient has a baseline medical history including COPD and chronic hypoxemic respiratory failure. Plan to continue supportive measures including aggressive bronchopulmonary hygiene and antimicrobials to complete 7 days of therapy. Wean supplemental oxygen to maintain saturations at or above 90%. The patient has been noncompliant with the use of nocturnal Pap therapy. I would strongly urge that AVAPS therapy be utilized with naps and nightly. Plan to continue scheduled bronchodilator therapy while awake. 2. Recent prolonged hospitalization with empyema leading to tracheostomy and PEG Continue supportive measures as noted above. Speech therapy recommended modified diet. Nutritional support via PEG tube can be continued in the interim. 3. History of COPD/paroxysmal atrial fibrillation/malnutrition/history of alcohol and tobacco dependency Complicates care, management, recovery and prognosis. Continue supportive measures as noted above. Physical therapy to work with the patient. This note was generated with [employer] dictation software. It may contain incorrect words, spelling, and punctuation that were not noted in checking the note before signing. Subjective Subjective The patient was seen and examined at the bedside this morning. Events from the last 24 hours have been reviewed. The patient is currently afebrile, hemodynamically stable and maintaining appropriate oxygen saturations on 10 L/min high flow cannula. The patient is documented to be overall net +1.1 L for the hospitalization. He remains on antimicrobials and scheduled bronchodilator therapy. He did again receive IV Lasix yesterday. Creatinine is stable. The patient continues to refuse to utilize overnight Pap therapy. Objective Data Objective Data The patient's most recent lab work, culture data and imaging studies have all been personally reviewed. Surface echocardiogram from February 2021 demonstrated normal LV size and function with an ejection fraction of 50% and a pulmonary artery systolic pressure estimated to be 50 mmHg. Sputum culture dated August 13 was positive for Klebsiella pneumoniae. Vital Signs: Vital Signs Temp Pulse Resp BP Pulse Ox 98.7 F 74 18 116/68 93 08/24/21 08:59 08/24/21 08:59 08/24/21 08:59 08/24/21 08:59 08/24/21 08:59 Oxygen Flow Rate (L/min) [4] 15 Oxygen Flow Rate (L/min) [3] 15 Oxygen Flow Rate (L/min) [2] 15 Oxygen Flow Rate (L/min) [1 ( 15 Initial Baseline)] Oxygen Flow Rate (L/min) [3] 8 Oxygen Flow Rate (L/min) [2] 8 Oxygen Flow Rate (L/min) [1 ( 8 Initial Baseline)] Oxygen Flow Rate (L/min) 10 Oxygen Delivery Method [4] High Flow Oxygen Delivery Method [3] High Flow Oxygen Delivery Method [2] High Flow Oxygen Delivery Method [1 ( High Flow Initial Baseline)] Oxygen Delivery Method [3] Nasal Cannula Oxygen Delivery Method [2] Nasal Cannula Oxygen Delivery Method [1 ( Nasal Cannula Initial Baseline)] Oxygen Delivery Method High Flow Weight: 46.8 kg Body Mass Index (BMI) 17.6 Intake & Output: Intake and Output for Last 24 Hours 08/22/21 08/23/21 08/24/21 23:59 23:59 23:59 Intake Total 2049 550 / 550 100 / 100 Output Total 1949 / 1949 650 / 650 Balance 100 / 100 -100 / -100 100 / 100 Medical Nutrition Assessment Dietitian: Malnutrition Criteria Met Start: 08/14/21 10:16 Freq: Status: Active Protocol: Document 08/17/21 08:32 ELLEN (Rec: 08/17/21 08:32 ELLEN [id number]) Nutrition Malnutrition Evidence of Malnutrition Exists Yes Malnutrition (severe): Chronic Evidenced By Suboptimal Energy Intake ( Severe),Weight Loss (Severe), Physical Changes (Severe) Clinical Problem Chronic Disease or Condition Related Malnutrition Etiology severe, chronic malnutrition r /t inadequate energy intake d/ t swallowing difficulty, increased energy needs d/t chronic resp. failure Signs/Symptoms as evidenced by estimated PO intake meeting <75% of estimated energy needs >3 months; obvious signs of severe muscle/fat wasting in the face, orbital and temporal regions per physical exam; BMI 17.3; apparent wt loss of 8.2% x 9 days per EMR Status Active Problem Recommendation Dietitian Recommendations/Changes 1) Will continue bolus enteral nutrition support to 250mL Jevity 1.5 4x/day via PEG w/ 200mL H2O flush w/ each bolus to provide 1500 calories, 63.8 g protein, and 1560mL total fluid/day. 2) Regular diet if appropriate per SENIOR DATA ARCHITECT. Texture/consistency modifications per SENIOR DATA ARCHITECT. 3) Daily wts. Recommend close monitoring of electrolytes given risk for refeeding syndrome. Lab / Micro Data Attestation: I reviewed the patient's lab results. Result Diagrams: 08/24/21 05:45 08/24/21 05:45 Labs: Laboratory Results - last 24 hr 08/24/21 05:45: WBC 6.5, RBC 2.81 L, Hgb 8.7 L, Hct 26.8 L, MCV 95.4 H, MCH 31.0, MCHC 32.5, RDW Std Deviation 48.9 H, RDW Coeff of Vita 14.2, Plt Count 235, MPV 10.2, Immature Gran % (Auto) 1.400 H, Neut % (Auto) 73.4 H, Lymph % (Auto) 12.2 L, [place] % (Auto) 8.4, Eos % (Auto) 3.8, Baso % (Auto) 0.8, Absolute Neuts (auto) 4.8, Absolute Lymphs (auto) 0.80 L, Nucleated RBC % 0 08/24/21 05:45: Sodium 142, Potassium 4.0, Chloride 103, Carbon Dioxide 36.0 H, Anion Gap 3 L, BUN 22 H, Creatinine 1.07, Estim Creat Clear Calc 43.13, Est GFR (MDRD) Af Amer 88, Est GFR (MDRD) Non-Af 73, BUN/Creatinine Ratio 20.6 H, Glucose 137 H, Calcium 8.6 Micro: Microbiology 08/13/21 10:45 Stool Stool Occult Blood (LU) - Final 08/14/21 Unknown Fluid - Thoracentesis Fluid Gram Stain - Final 08/14/21 Unknown Fluid - Thoracentesis Fluid Body Fluid Culture - Final No growth aerobically. 08/14/21 Unknown Fluid - Thoracentesis Fluid Anaerobic Culture - Final No growth in 5 days. 08/14/21 01:10 Blood Culture (Wb) - Left Hand Blood Culture - Final No growth in 5 days. 08/14/21 01:02 Blood Culture (Wb) - Anticubital Right Blood Culture - Final No growth in 5 days. 08/13/21 21:00 Urine, Clean Catch Legionella Antigen - Final 08/13/21 21:00 Urine, Clean Catch Streptococcus pneumoniae Antigen (M - Final 08/13/21 18:30 Sputum, Induced/[place]ukens Gram Stain - Final 08/13/21 18:30 Sputum, Induced/Lukens Respiratory Culture - Final Klebsiella pneumoniae sp pneum Gram positive joann 08/13/21 17:51 Mucosa - Nose Influenza Types A,B Direct FA (LU) - Final Physical Exam Const no apparent distress General Appearance: cooperative and lethargic Nutritional Appearance: thin HEENT normocephalic and head/scalp atraumatic Eyes PERRL and EOMs intact bilaterally Neck supple Neck Narrative: Tracheostomy site is C/D/I. General: trachea midline Chest inspection of chest normal Resp Auscultation: diminished lung sounds; Negative for rales, rhonchi or wheezes Cardio regular rate and regular rhythm GI normal to inspection, nondistended, normoactive bowel sounds Inspection: GI tube present Extremity no clubbing, cyanosis or edema Skin no rashes or lesions noted Neuro CN's II-XII intact bilaterally and no focal motor deficits Psych Mood & Affect: flat affect Charges/Coding Visit Charges Inpatient E&M: 39380 Subs Hosp L2
--- NOTE | 2021-08-24 09:53 | CASEMGMT ---
This RN CM to room to check in with pt regarding compliance with meds, therapy, bipap, and TF. Pt has continuous TF running at this time and per notes, has been compliant with meds and therapy. Pt did not wear bipap last pm and when questioned about, pt states he was confused and is not really sure what happened last pm. This RN CM went thru the importance of wearing the bipap at night to recover, pt voices understanding. Pt has been agreeable to trach care and tells this RN CM that he is agreeable to mouth care as well. Pt states he will wear the bipap tonight. Ru[place]to PCU charge and Loi RAUSCH updated on all, voice understanding and nursing to be aware that they need to be firm with pt regarding bipap, meds via peg, mouth/trach care, and suctioning. Family meeting with pt and mother(WILL, PILI and Dr. Aguilar also) in regards to same goals of care, both voice understanding and all questions answered. Gian RAUCSH CM
--- NOTE | 2021-08-24 10:24 | CASEMGMT ---
PILI, RN CM, and physician spoke with patient and his mom. Patient's refusal of care was topic of discussion and how it is not compatible with patient getting better. Concerns were expressed to patient and his mom. Both verbalized understanding. Patient and his mom's questions were answered. Rachel NELSON
--- NOTE | 2021-08-24 10:26 | CASEMGMT ---
SW faxed updates to [facility]. Rachel Rubalcava PUMP AND STILL OPERATOR SENIOR TECHNICAL RECRUITER
--- NOTE | 2021-08-24 11:13 | CASEMGMT ---
PILI called [facility] registration and gave Alley patient's Medicaid number. ([id number]) Rachel NELSON
[2021-08-24] MEDS: Jevity 1.5 1,000 ML 45 ML GT (12:54)
--- NOTE | 2021-08-24 13:04 | PN.HOSP_ITS ---
Subjective Subjective Patient seen and examined. His mother was by his bedside. He had no active complaints today. He had an uneventful night to though he refused the BiPAP again. He is now on tube feeding continuously. The medical team comprising the hospitalist, briefcase sewer and social work supervisor met with patient and his mother. Patient did not want his brother or son involved in his care or decision-making. Medical team explained to patient and his mother that patient had not been compliant with care and so this was making it difficult for him to get better. Mother encouraged him to be compliant with treatment,. He remains on 10L of oxygen and has otherwise remained hemodynamically stable. Objective Data Objective Data Vital Signs: Vital Signs Temp Pulse Resp BP Pulse Ox 98.7 F 73 18 116/68 94 08/24/21 08:59 08/24/21 11:34 08/24/21 08:59 08/24/21 08:59 08/24/21 12:12 Oxygen Flow Rate (L/min) [4] 15 Oxygen Flow Rate (L/min) [3] 15 Oxygen Flow Rate (L/min) [2] 15 Oxygen Flow Rate (L/min) [1 ( 15 Initial Baseline)] Oxygen Flow Rate (L/min) [3] 8 Oxygen Flow Rate (L/min) [2] 8 Oxygen Flow Rate (L/min) [1 ( 8 Initial Baseline)] Oxygen Flow Rate (L/min) 10 Oxygen Delivery Method [4] High Flow Oxygen Delivery Method [3] High Flow Oxygen Delivery Method [2] High Flow Oxygen Delivery Method [1 ( High Flow Initial Baseline)] Oxygen Delivery Method [3] Nasal Cannula Oxygen Delivery Method [2] Nasal Cannula Oxygen Delivery Method [1 ( Nasal Cannula Initial Baseline)] Oxygen Delivery Method High Flow Weight: 103 lb 2.821 oz Body Mass Index (BMI) 17.6 Intake & Output: Intake and Output for Last 24 Hours 08/22/21 08/23/21 08/24/21 23:59 23:59 23:59 Intake Total 2049 550 / 550 475 / 475 Output Total 1949 / 1949 650 / 650 Balance 100 / 100 -100 / -100 475 / 475 Medical Nutrition Assessment Dietitian: Malnutrition Criteria Met Start: 08/14/21 10: 16 Freq: Status: Active Protocol: Document 08/17/21 08:32 ELLEN (Rec: 08/17/21 08:32 [facility] [id number]) Nutrition Malnutrition Evidence of Malnutrition Exists Yes Malnutrition (severe): Chronic Evidenced By Suboptimal Energy Intake ( Severe),Weight Loss (Severe), Physical Changes (Severe) Clinical Problem Chronic Disease or Condition Related Malnutrition Etiology severe, chronic malnutrition r /t inadequate energy intake d/ t swallowing difficulty, increased energy needs d/t chronic resp. failure Signs/Symptoms as evidenced by estimated PO intake meeting <75% of estimated energy needs >3 months; obvious signs of severe muscle/fat wasting in the face, orbital and temporal regions per physical exam; BMI 17.3; apparent wt loss of 8.2% x 9 days per EMR Status Active Problem Recommendation Dietitian Recommendations/Changes 1) Will continue bolus enteral nutrition support to 250mL Jevity 1.5 4x/day via PEG w/ 200mL H2O flush w/ each bolus to provide 1500 calories, 63.8 g protein, and 1560mL total fluid/day. 2) Regular diet if appropriate per PROCESS EXCELLENCE MANAGER. Texture/consistency modifications per PROCESS EXCELLENCE MANAGER. 3) Daily wts. Recommend close monitoring of electrolytes given risk for refeeding syndrome. Lab / Micro Data Result Diagrams: 08/24/21 05:45 08/24/21 05:45 Labs: Laboratory Results - last 24 hr 08/24/21 05:45: WBC 6.5, RBC 2.81 L, Hgb 8.7 L, Hct 26.8 L, MCV 95.4 H, MCH 31.0, MCHC 32.5, RDW Std Deviation 48.9 H, RDW Coeff of Vita 14.2, Plt Count 235, MPV 10.2, Immature Gran % (Auto) 1.400 H, Neut % (Auto) 73.4 H, Lymph % (Auto) 12.2 L, [place] % (Auto) 8.4, Eos % (Auto) 3.8, Baso % (Auto) 0.8, Absolute Neuts (auto) 4.8, Absolute Lymphs (auto) 0.80 L, Nucleated RBC % 0 08/24/21 05:45: Sodium 142, Potassium 4.0, Chloride 103, Carbon Dioxide 36.0 H, Anion Gap 3 L, BUN 22 H, Creatinine 1.07, Estim Creat Clear Calc 43.13, Est GFR (MDRD) Af Amer 88, Est GFR (MDRD) Non-Af 73, BUN/Creatinine Ratio 20.6 H, Glucose 137 H, Calcium 8.6 Micro: Microbiology 08/13/21 10:45 Stool Stool Occult Blood (LU) - Final 08/14/21 Unknown Fluid - Thoracentesis Fluid Gram Stain - Final 08/14/21 Unknown Fluid - Thoracentesis Fluid Body Fluid Culture - Final No growth aerobically. 08/14/21 Unknown Fluid - Thoracentesis Fluid Anaerobic Culture - Final No growth in 5 days. 08/14/21 01:10 Blood Culture (Wb) - Left Hand Blood Culture - Final No growth in 5 days. 08/14/21 01:02 Blood Culture (Wb) - Anticubital Right Blood Culture - Final No growth in 5 days. 08/13/21 21:00 Urine, Clean Catch Legionella Antigen - Final 08/13/21 21:00 Urine, Clean Catch Streptococcus pneumoniae Antigen (M - Final 08/13/21 18:30 Sputum, Induced/Lukens Gram Stain - Final 08/13/21 18:30 Sputum, Induced/Lukens Respiratory Culture - Final Klebsiella pneumoniae sp pneum Gram positive joann 08/13/21 17:51 Mucosa - Nose Influenza Types A,B Direct FA (LU) - Final Physical Exam Const alert, oriented x3 and no apparent distress Constitutional Narrative: very frail and lethargic Orientation / Consciousness: lethargic Exam Limitations: physical limitations HEENT normocephalic, head/scalp atraumatic and moist oral mucous membranes Head and Scalp: normocephalic Eyes PERRL, EOMs intact bilaterally and conjunctivae normal Neck no lymphadenopathy, supple and no JVD Resp Resp Narrative: Diminished breath sounds bibasilarly. No wheezes or crackles. still On 10L of oxygen. Tracheostomy in place Auscultation: diminished lung sounds; Negative for crackles, rales, rhonchi or wheezes Cardio regular rate, regular rhythm, S1 normal heart sound, S2 normal heart sound and no murmurs GI normal to inspection, nondistended, normoactive bowel sounds, soft to palpation, non-tender and non-distended; Negative for hepatosplenomegaly GI Narrative: PEG tube in place Extremity normal to inspection, full ROM and no clubbing, cyanosis or edema Peripheral Pulses: Yes pulses 2+ throughout Skin no rashes or lesions noted and no wounds Neuro oriented x3, CN's II-XII intact bilaterally, moves all extremities, no focal motor deficits and no sensory deficits noted Sensorium / Orientation: awake and alert Psych Psych Narrative: flat affect Mood & Affect: flat affect Assessment & Plan Assessment/Plan (1) Pleural effusion, right: (2) Sepsis with acute hypoxic respiratory failure: PLAN: #Acute on chronic hypoxic and hypercapnic respiratory failure due to Klebsiella pneumonia and left pleural effusion * this is complicated by mucous plugging as well as patient is not compliant with managemeent * on IV zosyn; to complete a 7 day course of antibiotics * on breathing treatment with bronchodilators * titrate oxygen to maintain sats >90% * lasix prn * s/p thoracentesis which showed a transudative fluid. * still on 10L of oxygen today. * pulmonology recommends AVAPS therapy qhs and with naps. * #COPD: not in exacerbation. On breathing treatment with bronchodilators #Depression and anxiety: on buspar and remeron. Also on zoloft #Chronic anemia; hb today is 8.7. His baseline is 8-9. Will monior. Stool for occult blood was negative. #Hypernatremia: * resolved. Na remains at 142 today. * On free water flushes with tube feeding. #Severe protein calorie malnutrition * nutrition on board. BMI is 16.8 * nutritional support via PEG tube with free water flushes * #History of paroxysmal afib: stable DVT prophylaxis: lovenox code status: full code * Charges/Coding Visit Charges Inpatient E&M: 40572 Subs Hosp L2
--- NOTE | 2021-08-24 14:58 | NURSING ---
This RN taking over care at this time
[2021-08-24] MEDS: Mirtazapine 15 MG Tablet 7.5 MG PO (21:25)
[2021-08-25] VITALS (17 sets, daily range): BP systolic 95–119; BP diastolic 55–70; PULSE 70–81; RESP 14–25; TEMP 36.4–36.8; O2SAT 84–99
--- NOTE | 2021-08-25 03:31 | CPS ---
Pt doesn't want to wear bipap anymore. RN aware. Pt took off at 0100 already but informed him he must wear at least an hour.
[2021-08-25 05:47] LABS: Absolute Lymphocyte Count 0.91 X10^3/uL (0.83-4.51); Absolute Neutrophil Count 4.1 X10^3/uL (2.0-7.7); Basophil# 0.02 X10^3/uL; Basophil% 0.3 % (0-1); Eosinophil# 0.31 X10^3/uL; Eosinophils% 5.2 % (0-5); Hematocrit 25.4 % (40-54); Hemoglobin 8.4 g/dL (13.0-16.5); Lymphocyte # 0.91 X10^3/ul (0.83-4.51); Lymphocyte % 15.2 % (19-41); Mean Corp Hgb Conc 33.1 g/dL (32-36); Mean Corpuscular Hgb 31.9 pg (27.0-32.0); Mean Corpuscular Volume 96.6 fL (80-94); Monocyte# 0.56 X10^3/uL; Monocyte% 9.4 % (0-10); NRBC Flagged by Analyzer 0 % (0-5); Neutrophil # 4.09 X10^3/uL (2.7-7.7); Neutrophil % 68.4 % (47-70); Platelet Count 224 K/mm3 (150-450); RBC Distribution Width CV 14.5 % (11.6-14.6); Red Blood Count 2.63 M/mm3 (4.6-6.2)
[2021-08-25 06:19] LABS: Anion Gap 2 (5-15); BUN 22 mg/dL (7-18); BUN/Creat Ratio 22.3 RATIO (10-20); Calcium,Total 8.4 mg/dL (8.5-10.1); Chloride 103 mmol/L (98-107); Creatinine, Serum 0.99 mg/dL (0.70-1.30); EST Glomerular Filtration Rate 80 mL/min (>60); Est Glom Filt Rate - Afr Amer 96 mL/min (>60); Estimated Creatinine Clearance 46.42 ml/min; Glucose 98 mg/dL (74-106); Potassium 4.1 mmol/L (3.5-5.1); Sodium Level 141 mmol/L (136-145)
[2021-08-25] MEDS: Ipratropium/Albuterol Sulfate 3 ML AMPUL.NEB INHALATION ×2 (07:04→12:59)
--- NOTE | 2021-08-25 08:05 | PCM.PN.INT ---
Assessment & Plan Assessment/Plan (1) Pleural effusion, right: PLAN: RECOMMENDATIONS: 1. Recommend AVAPS therapy via mask or trach with naps and nightly. (The patient remains largely noncompliant with its use) 2. Wean supplemental oxygen to maintain saturations at or above 90%. 3. Continue nutritional support via PEG tube. 4. Stop antibiotics. 5. Continue aggressive bronchopulmonary hygiene. 6. Continue scheduled bronchodilators. 7. Agree that hospice would be appropriate. IMPRESSIONS: 1. Acute combined on chronic hypoxemic respiratory failure secondary to Klebsiella pneumonia and pleural effusion The patient has a baseline medical history including COPD and chronic hypoxemic respiratory failure. Plan to continue supportive measures including aggressive bronchopulmonary hygiene and supplemental oxygen for saturations greater than 90%. The patient has completed a treatment course of antimicrobials. The patient has been largely noncompliant with the use of nocturnal Pap therapy. I would strongly urge that AVAPS therapy be utilized with naps and nightly. Plan to continue scheduled bronchodilator therapy while awake, along with aggressive bronchopulmonary hygiene. Will administer IV Lasix again today. 2. Recent prolonged hospitalization with empyema leading to tracheostomy and PEG Continue supportive measures as noted above. Speech therapy recommended modified diet. Nutritional support via PEG tube can be continued in the interim. 3. History of COPD/paroxysmal atrial fibrillation/malnutrition/history of alcohol and tobacco dependency Complicates care, management, recovery and prognosis. Continue supportive measures as noted above. Physical therapy to work with the patient. This note was generated with [employer] dictation software. It may contain incorrect words, spelling, and punctuation that were not noted in checking the note before signing. Subjective Subjective The patient was seen and examined at the bedside this morning. Events from the last 24 hours have been reviewed. The patient is currently afebrile, hemodynamically stable and maintaining appropriate oxygen saturations on 10 L/min high flow cannula. The patient only wore Pap therapy overnight for approximately 1 hour. He is requesting deep suctioning by respiratory therapy this morning. He is currently documented to be overall net +2.1 L for the hospitalization. Creatinine is stable. Objective Data Objective Data The patient's most recent lab work, culture data and imaging studies have all been personally reviewed. Surface echocardiogram from February 2021 demonstrated normal LV size and function with an ejection fraction of 50% and a pulmonary artery systolic pressure estimated to be 50 mmHg. Sputum culture dated August 13 was positive for Klebsiella pneumoniae. Vital Signs: Vital Signs Temp Pulse Resp BP Pulse Ox 97.9 F 71 20 H 107/70 98 08/25/21 05:00 08/25/21 05:00 08/25/21 05:00 08/25/21 05:00 08/25/21 05:00 Oxygen Flow Rate (L/min) [4] 15 Oxygen Flow Rate (L/min) [3] 15 Oxygen Flow Rate (L/min) [2] 15 Oxygen Flow Rate (L/min) [1 ( 15 Initial Baseline)] Oxygen Flow Rate (L/min) [3] 8 Oxygen Flow Rate (L/min) [2] 8 Oxygen Flow Rate (L/min) [1 ( 8 Initial Baseline)] Oxygen Flow Rate (L/min) 10 Oxygen Delivery Method [4] High Flow Oxygen Delivery Method [3] High Flow Oxygen Delivery Method [2] High Flow Oxygen Delivery Method [1 ( High Flow Initial Baseline)] Oxygen Delivery Method [3] Nasal Cannula Oxygen Delivery Method [2] Nasal Cannula Oxygen Delivery Method [1 ( Nasal Cannula Initial Baseline)] Oxygen Delivery Method High Flow Weight: 46.6 kg Body Mass Index (BMI) 17.6 Intake & Output: Intake and Output for Last 24 Hours 08/23/21 08/24/21 08/25/21 23:59 23:59 23:59 Intake Total 550 / 550 951.25 / 951.25 238.75 / 238.75 Output Total 650 / 650 50 / 50 Balance -100 / -100 951.25 / 901.25 188.75 / 188.75 Medical Nutrition Assessment Dietitian: Malnutrition Criteria Met Start: 08/14/21 10:16 Freq: Status: Active Protocol: Document 08/17/21 08:32 [facility] (Rec: 08/17/21 08:32 [facility] [id number]) Nutrition Malnutrition Evidence of Malnutrition Exists Yes Malnutrition (severe): Chronic Evidenced By Suboptimal Energy Intake ( Severe),Weight Loss (Severe), Physical Changes (Severe) Clinical Problem Chronic Disease or Condition Related Malnutrition Etiology severe, chronic malnutrition r /t inadequate energy intake d/ t swallowing difficulty, increased energy needs d/t chronic resp. failure Signs/Symptoms as evidenced by estimated PO intake meeting <75% of estimated energy needs >3 months; obvious signs of severe muscle/fat wasting in the face, orbital and temporal regions per physical exam; BMI 17.3; apparent wt loss of 8.2% x 9 days per EMR Status Active Problem Recommendation Dietitian Recommendations/Changes 1) Will continue bolus enteral nutrition support to 250mL Jevity 1.5 4x/day via PEG w/ 200mL H2O flush w/ each bolus to provide 1500 calories, 63.8 g protein, and 1560mL total fluid/day. 2) Regular diet if appropriate per PERSONNEL SUPERVISOR. Texture/consistency modifications per PERSONNEL SUPERVISOR. 3) Daily wts. Recommend close monitoring of electrolytes given risk for refeeding syndrome. Lab / Micro Data Result Diagrams: 08/25/21 05:01 08/25/21 05:01 Labs: Laboratory Results - last 24 hr 08/25/21 05:01: WBC 6.0, RBC 2.63 L, Hgb 8.4 L, Hct 25.4 L, MCV 96.6 H, MCH 31.9, MCHC 33.1, RDW Std Deviation 50.0 H, RDW Coeff of Vita 14.5, Plt Count 224, MPV 10.0, Immature Gran % (Auto) 1.500 H, Neut % (Auto) 68.4, Lymph % (Auto) 15.2 L, [place] % (Auto) 9.4, Eos % (Auto) 5.2 H, Baso % (Auto) 0.3, Absolute Neuts (auto) 4.1, Absolute Lymphs (auto) 0.91, Nucleated RBC % 0 08/25/21 05:01: Sodium 141, Potassium 4.1, Chloride 103, Carbon Dioxide 36.0 H, Anion Gap 2 L, BUN 22 H, Creatinine 0.99, Estim Creat Clear Calc 46.42, Est GFR (MDRD) Af Amer 96, Est GFR (MDRD) Non-Af 80, BUN/Creatinine Ratio 22.3 H, Glucose 98, Calcium 8.4 L Micro: Microbiology 08/13/21 10:45 Stool Stool Occult Blood (LU) - Final 08/14/21 Unknown Fluid - Thoracentesis Fluid Gram Stain - Final 08/14/21 Unknown Fluid - Thoracentesis Fluid Body Fluid Culture - Final No growth aerobically. 08/14/21 Unknown Fluid - Thoracentesis Fluid Anaerobic Culture - Final No growth in 5 days. 08/14/21 01:10 Blood Culture (Wb) - Left Hand Blood Culture - Final No growth in 5 days. 08/14/21 01:02 Blood Culture (Wb) - Anticubital Right Blood Culture - Final No growth in 5 days. 08/13/21 21:00 Urine, Clean Catch Legionella Antigen - Final 08/13/21 21:00 Urine, Clean Catch Streptococcus pneumoniae Antigen (M - Final 08/13/21 18:30 Sputum, Induced/Lukens Gram Stain - Final 08/13/21 18:30 Sputum, Induced/Lukens Respiratory Culture - Final Klebsiella pneumoniae sp pneum Gram positive joann 08/13/21 17:51 Mucosa - Nose Influenza Types A,B Direct FA (LU) - Final Physical Exam Const alert and no apparent distress General Appearance: cooperative Nutritional Appearance: thin HEENT normocephalic and head/scalp atraumatic Eyes PERRL and EOMs intact bilaterally Neck supple Neck Narrative: Tracheostomy site is C/D/I. General: trachea midline Chest inspection of chest normal Resp Auscultation: diminished lung sounds; Negative for rales, rhonchi or wheezes Cardio regular rate and regular rhythm GI normal to inspection, nondistended, normoactive bowel sounds Inspection: GI tube present Extremity no clubbing, cyanosis or edema Skin no rashes or lesions noted Neuro CN's II-XII intact bilaterally and no focal motor deficits Psych Mood & Affect: flat affect Charges/Coding Visit Charges Inpatient E&M: 13222 Subs Hosp L2
[2021-08-25] MEDS: 0.9% Saline Lock 10 ML Syringe IV (09:28)
[2021-08-25] MEDS: Enoxaparin 30 MG/0.3 ML Syringe SC (09:28)
[2021-08-25] MEDS: Sertraline 100 MG Tablet PO (09:28)
[2021-08-25] MEDS: Furosemide 40 MG/4 ML Vial IV (09:28)
[2021-08-25] MEDS: Famotidine 20 MG Tablet PO ×2 (09:28→21:55)
[2021-08-25] MEDS: Potassium Chloride Oral Soln 20 MEQ/15 ML UDC 40 MEQ GT (09:28)
[2021-08-25] MEDS: Jevity 1.5 1,000 ML 45 ML GT (09:29)
--- NOTE | 2021-08-25 12:43 | PN.HOSP_ITS ---
Subjective Subjective Patient seen and examined. He was lying in bed and had no acute complaints. He had an uneventful night. He was on 12L of oxygen at time of review. Objective Data Objective Data Vital Signs: Vital Signs Temp Pulse Resp BP Pulse Ox 98.0 F 71 21 H 113/70 89 08/25/21 10:00 08/25/21 10:53 08/25/21 10:00 08/25/21 10:00 08/25/21 11:33 Oxygen Flow Rate (L/min) [4] 15 Oxygen Flow Rate (L/min) [3] 15 Oxygen Flow Rate (L/min) [2] 15 Oxygen Flow Rate (L/min) [1 ( 15 Initial Baseline)] Oxygen Flow Rate (L/min) [3] 8 Oxygen Flow Rate (L/min) [2] 8 Oxygen Flow Rate (L/min) [1 ( 8 Initial Baseline)] Oxygen Flow Rate (L/min) 12 Oxygen Delivery Method [4] High Flow Oxygen Delivery Method [3] High Flow Oxygen Delivery Method [2] High Flow Oxygen Delivery Method [1 ( High Flow Initial Baseline)] Oxygen Delivery Method [3] Nasal Cannula Oxygen Delivery Method [2] Nasal Cannula Oxygen Delivery Method [1 ( Nasal Cannula Initial Baseline)] Oxygen Delivery Method High Flow Weight: 102 lb 11.767 oz Body Mass Index (BMI) 17.6 Intake & Output: Intake and Output for Last 24 Hours 08/23/21 08/24/21 08/25/21 23:59 23:59 23:59 Intake Total 550 / 550 951.25 / 951.25 1903.75 / 1903.75 Output Total 650 / 650 750 / 750 Balance -100 / -100 951.25 / 901.25 1153.75 / 1153.75 Medical Nutrition Assessment Dietitian: Malnutrition Criteria Met Start: 08/14/21 10:16 Freq: Status: Active Protocol: Document 08/17/21 08:32 ELLEN (Rec: 08/17/21 08:32 [facility] [id number]) Nutrition Malnutrition Evidence of Malnutrition Exists Yes Malnutrition (severe): Chronic Evidenced By Suboptimal Energy Intake ( Severe),Weight Loss (Severe), Physical Changes (Severe) Clinical Problem Chronic Disease or Condition Related Malnutrition Etiology severe, chronic malnutrition r /t inadequate energy intake d/ t swallowing difficulty, increased energy needs d/t chronic resp. failure Signs/Symptoms as evidenced by estimated PO intake meeting <75% of estimated energy needs >3 months; obvious signs of severe muscle/fat wasting in the face, orbital and temporal regions per physical exam; BMI 17.3; apparent wt loss of 8.2% x 9 days per EMR Status Active Problem Recommendation Dietitian Recommendations/Changes 1) Will continue bolus enteral nutrition support to 250mL Jevity 1.5 4x/day via PEG w/ 200mL H2O flush w/ each bolus to provide 1500 calories, 63.8 g protein, and 1560mL total fluid/day. 2) Regular diet if appropriate per VISUALIZER. Texture/consistency modifications per VISUALIZER. 3) Daily wts. Recommend close monitoring of electrolytes given risk for refeeding syndrome. Lab / Micro Data Result Diagrams: 08/25/21 05:01 08/25/21 05:01 Labs: Laboratory Results - last 24 hr 08/25/21 05:01: WBC 6.0, RBC 2.63 L, Hgb 8.4 L, Hct 25.4 L, MCV 96.6 H, MCH 31.9, MCHC 33.1, RDW Std Deviation 50.0 H, RDW Coeff of Vita 14.5, Plt Count 224, MPV 10.0, Immature Gran % (Auto) 1.500 H, Neut % (Auto) 68.4, Lymph % (Auto) 15.2 L, [place] % (Auto) 9.4, Eos % (Auto) 5.2 H, Baso % (Auto) 0.3, Absolute Neuts (auto) 4.1, Absolute Lymphs (auto) 0.91, Nucleated RBC % 0 08/25/21 05:01: Sodium 141, Potassium 4.1, Chloride 103, Carbon Dioxide 36.0 H, Anion Gap 2 L, BUN 22 H, Creatinine 0.99, Estim Creat Clear Calc 46.42, Est GFR (MDRD) Af Amer 96, Est GFR (MDRD) Non-Af 80, BUN/Creatinine Ratio 22.3 H, Glucose 98, Calcium 8.4 L Micro: Microbiology 08/13/21 10:45 Stool Stool Occult Blood (LU) - Final 08/14/21 Unknown Fluid - Thoracentesis Fluid Gram Stain - Final 08/14/21 Unknown Fluid - Thoracentesis Fluid Body Fluid Culture - Final No growth aerobically. 08/14/21 Unknown Fluid - Thoracentesis Fluid Anaerobic Culture - Final No growth in 5 days. 08/14/21 01:10 Blood Culture (Wb) - Left Hand Blood Culture - Final No growth in 5 days. 08/14/21 01:02 Blood Culture (Wb) - Anticubital Right Blood Culture - Final No growth in 5 days. 08/13/21 21:00 Urine, Clean Catch Legionella Antigen - Final 08/13/21 21:00 Urine, Clean Catch Streptococcus pneumoniae Antigen (M - Final 08/13/21 18:30 Sputum, Induced/Lukens Gram Stain - Final 08/13/21 18:30 Sputum, Induced/Lukens Respiratory Culture - Final Klebsiella pneumoniae sp pneum Gram positive joann 08/13/21 17:51 Mucosa - Nose Influenza Types A,B Direct FA (LU) - Final Physical Exam Const alert, oriented x3 and no apparent distress Constitutional Narrative: very frail and lethargic Exam Limitations: physical limitations HEENT normocephalic, head/scalp atraumatic and moist oral mucous membranes Head and Scalp: normocephalic Eyes PERRL, EOMs intact bilaterally and conjunctivae normal Neck no lymphadenopathy, supple and no JVD Resp normal respiratory effort, no retractions and no use of accessory muscles Resp Narrative: Diminished breath sounds bibasilarly. No wheezes or crackles. On 12L of oxygen. Tracheostomy in place Auscultation: diminished lung sounds; Negative for crackles, rales, rhonchi or wheezes Cardio regular rate, regular rhythm, S1 normal heart sound, S2 normal heart sound and no murmurs GI normal to inspection, nondistended, normoactive bowel sounds, soft to palpation, non-tender and non-distended; Negative for hepatosplenomegaly GI Narrative: PEG tube in place Extremity normal to inspection, full ROM and no clubbing, cyanosis or edema Skin no rashes or lesions noted and no wounds Neuro oriented x3, CN's II-XII intact bilaterally, moves all extremities, no focal motor deficits and no sensory deficits noted Sensorium / Orientation: awake and alert Psych Psych Narrative: flat affect Mood & Affect: flat affect Assessment & Plan Assessment/Plan (1) Pleural effusion, right: (2) Sepsis with acute hypoxic respiratory failure: PLAN: #Acute on chronic hypoxic and hypercapnic respiratory failure due to Klebsiella pneumonia and left pleural effusion * this is complicated by mucous plugging * Patient has not been very compliant with treatment. * completed a course of IV zosyn. * on breathing treatment with bronchodilators * titrate oxygen to maintain sats >90% * lasix prn * s/p thoracentesis which showed a transudative fluid. * on 12L of oxygen today. * pulmonology recommends AVAPS therapy qhs and with naps, but patient has not been very compliant. * #COPD: not in exacerbation. On breathing treatment with bronchodilators #Depression and anxiety: on buspar and remeron. Also on zoloft #Chronic anemia; hb today is 8.4. His baseline is 8-9. Will monior. Stool for occult blood was negative. #Hypernatremia: * resolved. Na is at 141 today. * On free water flushes with tube feeding. #Severe protein calorie malnutrition * nutrition on board. BMI is 16.8 * on continuous tube feeding via PEG tube now. * nutritional support via PEG tube with free water flushes * #History of paroxysmal afib: stable DVT prophylaxis: lovenox code status: full code Prognosis: Prognosis is very very poor. Patient is very frail and weak and noncompliant with treatment. Medical team has discussed CODE STATUS with patient multiple times during this admission and also with patient's mother who is the only family member he wants involved in his care. Patient insisted on remaining full code and states he wants to get better. I do think patient is appropriate for hospice and palliative care has also reviewed patient. Patient however still wants to be full code. I think this will have to be an ongoing conversation to make patient have full insight about his poor prognosis; I do not think patient is at the point of acceptance yet. * Charges/Coding Visit Charges Inpatient E&M: 91603 Subs Hosp L2
--- NOTE | 2021-08-25 14:20 | NURSING ---
O2 sats dropping, tracheal suctioned with moderate amt of creamy thick secretions, O2 sats recovered to mid 80s, after several minutes passed O2 sustaining 84%, increased to 15L high-flow NC at this time.
[2021-08-25] MEDS: Mirtazapine 15 MG Tablet 7.5 MG PO (21:55)
--- NOTE | 2021-08-25 22:37 | CPS ---
Patient refuses to wear bipap tonight.
[2021-08-26] VITALS (16 sets, daily range): BP systolic 103–122; BP diastolic 62–74; PULSE 69–97; RESP 14–28; TEMP 36.1–36.7; O2SAT 94–100
[2021-08-26 06:19] LABS: Absolute Lymphocyte Count 0.73 X10^3/uL (0.83-4.51); Absolute Neutrophil Count 4.4 X10^3/uL (2.0-7.7); Basophil# 0.04 X10^3/uL; Basophil% 0.7 % (0-1); Eosinophil# 0.36 X10^3/uL; Eosinophils% 5.9 % (0-5); Hematocrit 25.6 % (40-54); Hemoglobin 8.2 g/dL (13.0-16.5); Lymphocyte # 0.73 X10^3/ul (0.83-4.51); Mean Corpuscular Hgb 30.7 pg (27.0-32.0); Mean Corpuscular Volume 95.9 fL (80-94); Mean Platelet Vol. 10.3 fl (6.2-12.0); Monocyte# 0.49 X10^3/uL; NRBC Flagged by Analyzer 0 % (0-5); Neutrophil # 4.38 X10^3/uL (2.7-7.7); Neutrophil % 71.9 % (47-70); Platelet Count 249 K/mm3 (150-450); RBC Distribution Width CV 14.8 % (11.6-14.6); RBC Distribution Width SD 51.6 fl (35.1-43.9); Red Blood Count 2.67 M/mm3 (4.6-6.2); White Blood Count 6.1 K/mm3 (4.4-11.0)
[2021-08-26 06:30] LABS: Anion Gap 1 (5-15); BUN 23 mg/dL (7-18); BUN/Creat Ratio 24.7 RATIO (10-20); Calcium,Total 8.9 mg/dL (8.5-10.1); Chloride 102 mmol/L (98-107); Creatinine, Serum 0.93 mg/dL (0.70-1.30); EST Glomerular Filtration Rate 85 mL/min (>60); Est Glom Filt Rate - Afr Amer 103 mL/min (>60); Estimated Creatinine Clearance 49.41 ml/min; Glucose 108 mg/dL (74-106); Potassium 4.6 mmol/L (3.5-5.1); Sodium Level 137 mmol/L (136-145)
--- NOTE | 2021-08-26 06:35 | PN.CC_ITS ---
Assessment & Plan Assessment/Plan (1) Pleural effusion, right: PLAN: RECOMMENDATIONS: 1. Recommend AVAPS therapy via mask or trach with naps and nightly. (The patient continues to refuse PAP therapy) 2. Wean supplemental oxygen to maintain saturations at or above 90%. 3. Continue nutritional support via PEG tube. 4. Continue aggressive bronchopulmonary hygiene. 5. Continue scheduled bronchodilators. 6. Obtain repeat chest x-ray. Increase dosing of Lasix to twice daily. 7. Agree that hospice would be appropriate, given the patient's ongoing refusal of medical therapy. IMPRESSIONS: 1. Acute combined on chronic hypoxemic respiratory failure secondary to Klebsiella pneumonia and pleural effusion The patient has a baseline medical history including COPD and chronic hypoxemic respiratory failure. Plan to continue supportive measures including aggressive bronchopulmonary hygiene and supplemental oxygen for saturations greater than 90%. The patient has completed a treatment course of antimicrobials. The patient has been largely noncompliant with the use of nocturnal Pap therapy. I would strongly urge that AVAPS therapy be utilized with naps and nightly. Plan to continue scheduled bronchodilator therapy while awake, along with aggressive bronchopulmonary hygiene. In light of his worsening pleural effusion, will i ncrease dosing of Lasix today. 2. Recent prolonged hospitalization with empyema leading to tracheostomy and PEG Continue supportive measures as noted above. Speech therapy following as modified barium swallow revealed evidence of aspiration. Continue nutritional support via PEG tube. 3. History of COPD/paroxysmal atrial fibrillation/malnutrition/history of alcohol and tobacco dependency Complicates care, management, recovery and prognosis. Continue supportive measures as noted above. Physical therapy to work with the patient. This note was generated with XING dictation software. It may contain incorrect words, spelling, and punctuation that were not noted in checking the note before signing. Subjective Subjective The patient was seen and examined at the bedside this morning. Events from the last 24 hours have been reviewed. The patient is currently afebrile, hemodynamically stable and maintaining appropriate oxygen saturations on 13 L/min high flow cannula. The patient again refused Pap therapy and suctioning overnight. He is currently documented to be overall net +4.5 L for the hospitalization. Creatinine is stable. There continues to be discrepancy between the patient reporting that he wants to get better and the fact that he continues to refuse medical therapy. The patient's pleural effusion has increased in size on repeat chest imaging from this morning. The frequency of his IV Lasix has been increased accordingly. Objective Data Objective Data The patient's most recent lab work, culture data and imaging studies have all been personally reviewed. Surface echocardiogram from February 2021 demonstrated normal LV size and function with an ejection fraction of 50% and a pulmonary artery systolic pressure estimated to be 50 mmHg. Sputum culture date d August 13 was positive for Klebsiella pneumoniae. Vital Signs: Vital Signs Temp Pulse Resp BP Pulse Ox 97.1 F L 69 18 122/74 H 97 08/26/21 06:27 08/26/21 06:27 08/26/21 06:27 08/26/21 06:27 08/26/21 06:27 Oxygen Flow Rate (L/min) [4] 15 Oxygen Flow Rate (L/min) [3] 15 Oxygen Flow Rate (L/min) [2] 15 Oxygen Flow Rate (L/min) [1 ( 15 Initial Baseline)] Oxygen Flow Rate (L/min) [3] 8 Oxygen Flow Rate (L/min) [2] 8 Oxygen Flow Rate (L/min) [1 ( 8 Initial Baseline)] Oxygen Flow Rate (L/min) 13 Oxygen Delivery Method [4] High Flow Oxygen Delivery Method [3] High Flow Oxygen Delivery Method [2] High Flow Oxygen Delivery Method [1 ( High Flow Initial Baseline)] Oxygen Delivery Method [3] Nasal Cannula Oxygen Delivery Method [2] Nasal Cannula Oxygen Delivery Method [1 ( Nasal Cannula Initial Baseline)] Oxygen Delivery Method High Flow Weight: 46.9 kg Body Mass Index (BMI) 17.6 Intake & Output: Intake and Output for Last 24 Hours 08/24/21 08/25/21 08/26/21 23:59 23:59 23:59 Intake Total 951.25 / 951.25 2828.75 / 2828.75 651 / 651 Output Total 950 / 950 Balance 951.25 / 901.25 1878.75 / 1878.75 651 / 651 Medical Nutrition Assessment Dietitian: Malnutrition Criteria Met Start: 08/14/21 10:16 Freq: Status: Active Protocol: Document 08/17/21 08:32 ELLEN (Rec: 08/17/21 08:32 [facility] [id number]) Nutrition Malnutrition Evidence of Malnutrition Exists Yes Malnutrition (severe): Chronic Evidenced By Suboptimal Energy Intake ( Severe),Weight Loss (Severe), Physical Changes (Severe) Clinical Problem Chronic Disease or Condition Related Malnutrition Etiology severe, chronic malnutrition r /t inadequate energy intake d/ t swallowing difficulty, increased energy needs d/t chronic resp. failure Signs/Symptoms as evidenced by estimated PO intake meeting <75% of estimated energy needs >3 months; obvious signs of severe muscle/fat wasting in the face, orbital and temporal regions per physical exam; BMI 17.3; apparent wt loss of 8.2% x 9 days per EMR Status Active Problem Recommendation Dietitian Recommendations/Changes 1) Will continue bolus enteral nutrition support to 250mL Jevity 1.5 4x/day via PEG w/ 200mL H2O flush w/ each bolus to provide 1500 calories, 63.8 g protein, and 1560mL total fluid/day. 2) Regular diet if appropriate per HOUSEKEEPER [employer]. Texture/consistency modifications per HOUSEKEEPER [employer]. 3) Daily wts. Recommend close monitoring of electrolytes given risk for refeeding syndrome. Lab / Micro Data Attestation: I reviewed the patient's lab results. Result Diagrams: 08/26/21 05:34 08/26/21 05:34 Labs: Laboratory Results - last 24 hr 08/26/21 05:34: WBC 6.1, RBC 2.67 L, Hgb 8.2 L, Hct 25.6 L, MCV 95.9 H, MCH 30.7, MCHC 32.0, RDW Std Deviation 51.6 H, RDW Coeff of Vita 14.8 H, Plt Count 249, MPV 10.3, Immature Gran % (Auto) 1.500 H, Neut % (Auto) 71.9 H, Lymph % (Auto) 12.0 L, [place] % (Auto) 8.0, Eos % (Auto) 5.9 H, Baso % (Auto) 0.7, Absolute Neuts (auto) 4.4, Absolute Lymphs (auto) 0.73 L, Nucleated RBC % 0 08/26/21 05:34: Sodium 137, Potassium 4.6, Chloride 102, Carbon Dioxide 34.0 H, Anion Gap 1 L, BUN 23 H, Creatinine 0.93, Estim Creat Clear Calc 49.41, Est GFR (MDRD) Af Amer 103, Est GFR (MDRD) Non-Af 85, BUN/Creatinine Ratio 24.7 H, Glucose 108 H, Calcium 8.9 Micro: Microbiology 08/13/21 10:45 Stool Stool Occult Blood (LU) - Final 08/14/21 Unknown Fluid - Thoracentesis Fluid Gram Stain - Final 08/14/21 Unknown Fluid - Thoracentesis Fluid Body Fluid Culture - Final No growth aerobically. 08/14/21 Unknown Fluid - Thoracentesis Fluid Anaerobic Culture - Final No growth in 5 days. 08/14/21 01:10 Blood Culture (Wb) - Left Hand Blood Culture - Final No growth in 5 days. 08/14/21 01:02 Blood Culture (Wb) - Anticubital Right Blood Culture - Final No growth in 5 days. 08/13/21 21:00 Urine, Clean Catch Legionella Antigen - Final 08/13/21 21:00 Urine, Clean Catch Streptococcus pneumoniae Antigen (M - Final 08/13/21 18:30 Sputum, Induced/Lukens Gram Stain - Final 08/13/21 18:30 Sputum, Induced/Lukens Respiratory Culture - Final Klebsiella pneumoniae sp pneum Gram positive joann 08/13/21 17:51 Mucosa - Nose Influenza Types A,B Direct FA (LU) - Final Physical Exam Const alert and no apparent distress General Appearance: cooperative Nutritional Appearance: thin HEENT normocephalic and head/scalp atraumatic Eyes PERRL and EOMs intact bilaterally Neck supple Neck Narrative: Tracheostomy site is C/D/I. General: trachea midline Chest inspection of chest normal Resp Auscultation: diminished lung sounds; Negative for rales, rhonchi or wheezes Cardio regular rate and regular rhythm GI normal to inspection, nondistended, normoactive bowel sounds Inspection: GI tube present Extremity no clubbing, cyanosis or edema Skin no rashes or lesions noted Neuro CN's II-XII intact bilaterally and no focal motor deficits Psych Mood & Affect: flat affect Charges/Coding Visit Charges Inpatient E&M: 00734 Subs Hosp L3
--- NOTE | 2021-08-26 06:42 | RAD_ITS ---
STUDY: X-RAY CHEST REASON FOR EXAM: Male, 70 years old. Respiratory Failure TECHNIQUE: Single AP portable view of the chest. COMPARISON: 08/20/2021 FINDINGS: Tracheostomy tube which is unchanged. The lungs are clear and expanded. Interval development of moderate left pleural effusion with left lower lobe atelectasis. There is moderate cardiac enlargement. Normal mediastinum and genaro. Normal visualized pulmonary arteries. Normal visualized aortic arch and descending thoracic aorta. Normal visualized thoracic spine. Normal visualized ribs, clavicles, and shoulders. There is no demonstrated abnormality of the visualized soft tissue structures of the upper abdomen. RAD/Chest 1 View (Portable) IMPRESSION: Interval development of moderate left pleural effusion with left lower lobe atelectasis. Electronically Signed: Wilfrido Baxter MD at 7:20 EST ,
[2021-08-26] MEDS: Potassium Chloride Oral Soln 20 MEQ/15 ML UDC 40 MEQ GT (09:32)
[2021-08-26] MEDS: Sertraline 100 MG Tablet PO (09:33)
[2021-08-26] MEDS: Famotidine 20 MG Tablet PO ×2 (09:33→21:25)
[2021-08-26] MEDS: Jevity 1.5 1,000 ML 45 ML GT (09:33)
[2021-08-26] MEDS: Enoxaparin 30 MG/0.3 ML Syringe SC (09:33)
[2021-08-26] MEDS: 0.9% Saline Lock 10 ML Syringe IV ×2 (09:36→18:06)
[2021-08-26] MEDS: Furosemide 40 MG/4 ML Vial IV ×2 (09:36→18:06)
--- NOTE | 2021-08-26 12:05 | PN.HOSP_ITS ---
Subjective Subjective Patient seen and examined. He had no active complaints. I was informed by the nurse that patient was refusing suction overnight. Patient however tells me that this is not true and that he asked for suction when he thinks he requires it. I informed patient that suction needs to be done periodically to make sure that his tracheostomy remains clear so he does not get mucous plugs. I counseled patient that his noncompliance with his medical care is making it difficult for him to get better. Patient did not want to have the conversation any further and told me he was tired and did not want to talk about his care anymore. He is on 13 L of oxygen today. He has otherwise remained hemodynamically stable. Objective Data Objective Data Vital Signs: Vital Signs Temp Pulse Resp BP Pulse Ox 97.1 F L 72 18 122/74 H 96 08/26/21 06:27 08/26/21 06:47 08/26/21 06:27 08/26/21 06:27 08/26/21 06:58 Oxygen Flow Rate (L/min) [4] 15 Oxygen Flow Rate (L/min) [3] 15 Oxygen Flow Rate (L/min) [2] 15 Oxygen Flow Rate (L/min) [1 ( 15 Initial Baseline)] Oxygen Flow Rate (L/min) [3] 8 Oxygen Flow Rate (L/min) [2] 8 Oxygen Flow Rate (L/min) [1 ( 8 Initial Baseline)] Oxygen Flow Rate (L/min) 13 Oxygen Delivery Method [4] High Flow Oxygen Delivery Method [3] High Flow Oxygen Delivery Method [2] High Flow Oxygen Delivery Method [1 ( High Flow Initial Baseline)] Oxygen Delivery Method [3] Nasal Cannula Oxygen Delivery Method [2] Nasal Cannula Oxygen Delivery Method [1 ( Nasal Cannula Initial Baseline)] Oxygen Delivery Method High Flow Weight: 103 lb 6.349 oz Body Mass Index (BMI) 17.6 Intake & Output: Intake and Output for Last 24 Hours 08/24/21 08/25/21 08/26/21 23:59 23:59 23:59 Intake Total 951.25 / 951.25 2828.75 / 2828.75 651 / 651 Output Total 950 / 950 Balance 951.25 / 901.25 1878.75 / 1878.75 651 / 651 Medical Nutrition Assessment Dietitian: Malnutrition Criteria Met Start: 08/14/21 10:16 Freq: Status: Active Protocol: Document 08/17/21 08:32 ELLEN (Rec: 08/17/21 08:32 [facility] [id number]) Nutrition Malnutrition Evidence of Malnutrition Exists Yes Malnutrition (severe): Chronic Evidenced By Suboptimal Energy Intake ( Severe),Weight Loss (Severe), Physical Changes (Severe) Clinical Problem Chronic Disease or Condition Related Malnutrition Etiology severe, chronic malnutrition r /t inadequate energy intake d/ t swallowing difficulty, increased energy needs d/t chronic resp. failure Signs/Symptoms as evidenced by estimated PO intake meeting <75% of estimated energy needs >3 months; obvious signs of severe muscle/fat wasting in the face, orbital and temporal regions per physical exam; BMI 17.3; apparent wt loss of 8.2% x 9 days per EMR Status Active Problem Recommendation Dietitian Recommendations/Changes 1) Will continue bolus enteral nutrition support to 250mL Jevity 1.5 4x/day via PEG w/ 200mL H2O flush w/ each bolus to provide 1500 calories, 63.8 g protein, and 1560mL total fluid/day. 2) Regular diet if appropriate per PANEL MACHINE SETTER. Texture/consistency modifications per PANEL MACHINE SETTER. 3) Daily wts. Recommend close monitoring of electrolytes given risk for refeeding syndrome. Lab / Micro Data Result Diagrams: 08/26/21 05:34 08/26/21 05:34 Labs: Laboratory Results - last 24 hr 08/26/21 05:34: WBC 6.1, RBC 2.67 L, Hgb 8.2 L, Hct 25.6 L, MCV 95.9 H, MCH 30. 7, MCHC 32.0, RDW Std Deviation 51.6 H, RDW Coeff of Vita 14.8 H, Plt Count 249, MPV 10.3, Immature Gran % (Auto) 1.500 H, Neut % (Auto) 71.9 H, Lymph % (Auto) 12.0 L, [place] % (Auto) 8.0, Eos % (Auto) 5.9 H, Baso % (Auto) 0.7, Absolute Neuts (auto) 4.4, Absolute Lymphs (auto) 0.73 L, Nucleated RBC % 0 08/26/21 05:34: Sodium 137, Potassium 4.6, Chloride 102, Carbon Dioxide 34.0 H, Anion Gap 1 L, BUN 23 H, Creatinine 0.93, Estim Creat Clear Calc 49.41, Est GFR (MDRD) Af Amer 103, Est GFR (MDRD) Non-Af 85, BUN/Creatinine Ratio 24.7 H, Glucose 108 H, Calcium 8.9 Micro: Microbiology 08/13/21 10:45 Stool Stool Occult Blood (LU) - Final 08/14/21 Unknown Fluid - Thoracentesis Fluid Gram Stain - Final 08/14/21 Unknown Fluid - Thoracentesis Fluid Body Fluid Culture - Final No growth aerobically. 08/14/21 Unknown Fluid - Thoracentesis Fluid Anaerobic Culture - Final No growth in 5 days. 08/14/21 01:10 Blood Culture (Wb) - Left Hand Blood Culture - Final No growth in 5 days. 08/14/21 01:02 Blood Culture (Wb) - Anticubital Right Blood Culture - Final No growth in 5 days. 08/13/21 21:00 Urine, Clean Catch Legionella Antigen - Final 08/13/21 21:00 Urine, Clean Catch Streptococcus pneumoniae Antigen (M - Final 08/13/21 18:30 Sputum, Induced/Lukens Gram Stain - Final 08/13/21 18:30 Sputum, Induced/Lukens Respiratory Culture - Final Klebsiella pneumoniae sp pneum Gram positive joann 08/13/21 17:51 Mucosa - Nose Influenza Types A,B Direct FA (LU) - Final Radiography Diagnostic Testing: Radiology Impression Chest X-Ray 08/26/21 06:42 IMPRESSION: Interval development of moderate left pleural effusion with left lower lobe atelectasis. Electronically Signed: Wilfrido Baxter MD at 7:20 EST , Physical Exam Const alert, oriented x3 and no apparent distress Constitutional Narrative: very frail and lethargic Orientation / Consciousness: lethargic Exam Limitations: physical limitations Nutritional Appearance: cachectic HEENT normocephalic, head/scalp atraumatic and moist oral mucous membranes Head and Scalp: normocephalic Eyes PERRL, EOMs intact bilaterally and conjunctivae normal Neck no lymphadenopathy, supple and no JVD Resp normal respiratory effort, no retractions and no use of accessory muscles Resp Narrative: Diminished breath sounds bibasilarly. No wheezes or crackles. On 13L of oxygen. Tracheostomy in place Auscultation: diminished lung sounds; Negative for crackles, rales, rhonchi or wheezes Cardio regular rate, regular rhythm, S1 normal heart sound, S2 normal heart sound and no murmurs GI normal to inspection, nondistended, normoactive bowel sounds, soft to palpation, non-tender and non-distended; Negative for hepatosplenomegaly GI Narrative: PEG tube in place Extremity normal to inspection, full ROM and no clubbing, cyanosis or edema Skin no rashes or lesions noted and no wounds Neuro oriented x3, CN's II-XII intact bilaterally, moves all extremities, no focal motor deficits and no sensory deficits noted Sensorium / Orientation: awake and alert Psych affect normal Mood & Affect: flat affect Assessment & Plan Assessment/Plan (1) Pleural effusion, right: (2) Sepsis with acute hypoxic respiratory failure: PLAN: #Acute on chronic hypoxic and hypercapnic respiratory failure due to Klebsiella pneumonia and left pleural effusion * this is complicated by mucous plugging * Patient has not been very compliant with treatment. * completed a course of IV zosyn. * on breathing treatment with bronchodilators * titrate oxygen to maintain sats >90% * lasix prn * s/p thoracentesis which showed a transudative fluid. * on 13L of oxygen today. * pulmonology recommends AVAPS therapy qhs and with naps, but patient has not been very compliant. He is also not compliant with suctioning of his tracheostomy * #COPD: not in exacerbation. On breathing treatment with bronchodilators #Depression and anxiety: on buspar and remeron. Also on zoloft #Chronic anemia; has remained stable around his baseline. Stool for occult blood was negative. #Hypernatremia: * resolved. * On free water flushes with tube feeding. #Severe protein calorie malnutrition * nutrition on board. BMI is 16.8 * on continuous tube feeding via PEG tube now. * nutritional support via PEG tube with free water flushes * #History of paroxysmal afib: stable DVT prophylaxis: lovenox code status: full code Prognosis: Prognosis is very very poor. Patient still not compliant with treatment. I do think an ethics consult will be beneficial in this case as patient wants to remain full code but is noncompliant with treatment. Will initiate ethics consult. * Charges/Coding Visit Charges Inpatient E&M: 78116 Subs Hosp L2
[2021-08-26] MEDS: Ipratropium/Albuterol Sulfate 3 ML AMPUL.NEB INHALATION (19:27)
[2021-08-26] MEDS: Mirtazapine 15 MG Tablet 7.5 MG PO (21:25)
[2021-08-27] VITALS (17 sets, daily range): BP systolic 102–109; BP diastolic 50–66; PULSE 76–88; RESP 15–28; TEMP 36.4–36.6; O2SAT 90–100
[2021-08-27] MEDS: Jevity 1.5 1,000 ML 50 ML GT (06:14)
[2021-08-27 06:34] LABS: Absolute Lymphocyte Count 0.87 X10^3/uL (0.83-4.51); Absolute Neutrophil Count 4.9 X10^3/uL (2.0-7.7); Basophil# 0.03 X10^3/uL; Basophil% 0.4 % (0-1); Eosinophil# 0.42 X10^3/uL; Eosinophils% 6.1 % (0-5); Hematocrit 24.9 % (40-54); Lymphocyte # 0.87 X10^3/ul (0.83-4.51); Lymphocyte % 12.6 % (19-41); Mean Corp Hgb Conc 32.1 g/dL (32-36); Mean Corpuscular Volume 96.5 fL (80-94); Mean Platelet Vol. 10.1 fl (6.2-12.0); Monocyte# 0.52 X10^3/uL; Monocyte% 7.5 % (0-10); NRBC Flagged by Analyzer 0 % (0-5); Neutrophil # 4.93 X10^3/uL (2.7-7.7); Neutrophil % 71.4 % (47-70); Platelet Count 255 K/mm3 (150-450); RBC Distribution Width CV 14.9 % (11.6-14.6); RBC Distribution Width SD 52.1 fl (35.1-43.9); Red Blood Count 2.58 M/mm3 (4.6-6.2); White Blood Count 6.9 K/mm3 (4.4-11.0)
[2021-08-27 07:07] LABS: Anion Gap 2 (5-15); BUN 28 mg/dL (7-18); BUN/Creat Ratio 28.4 RATIO (10-20); Calcium,Total 8.9 mg/dL (8.5-10.1); Chloride 97 mmol/L (98-107); Creatinine, Serum 0.99 mg/dL (0.70-1.30); EST Glomerular Filtration Rate 80 mL/min (>60); Est Glom Filt Rate - Afr Amer 97 mL/min (>60); Estimated Creatinine Clearance 46.42 ml/min; Glucose 121 mg/dL (74-106); Potassium 4.7 mmol/L (3.5-5.1); Sodium Level 134 mmol/L (136-145)
[2021-08-27] MEDS: Ipratropium/Albuterol Sulfate 3 ML AMPUL.NEB INHALATION ×3 (07:18→19:51)
--- NOTE | 2021-08-27 08:09 | PCM.PN.INT ---
Assessment & Plan Assessment/Plan (1) Pleural effusion, right: PLAN: RECOMMENDATIONS: 1. Recommend AVAPS therapy via mask or trach with naps and nightly. 2. Wean supplemental oxygen to maintain saturations at or above 90%. 3. Continue nutritional support via PEG tube. 4. Continue aggressive bronchopulmonary hygiene. 5. Continue scheduled bronchodilators. 6. Repeat chest x-ray tomorrow. Continue increased dosing of Lasix to twice daily. 7. Agree that hospice would be appropriate, given the patient's ongoing refusal of medical therapy. IMPRESSIONS: 1. Acute combined on chronic hypoxemic respiratory failure secondary to Klebsiella pneumonia and pleural effusion The patient has a baseline medical history including COPD and chronic hypoxemic respiratory failure. Plan to continue supportive measures including aggressive bronchopulmonary hygiene and supplemental oxygen for saturations greater than 90%. The patient has completed a treatment course of antimicrobials. The patient has been largely noncompliant with the use of nocturnal Pap therapy. I would strongly urge that AVAPS therapy be utilized with naps and nightly. Plan to continue scheduled bronchodilator therapy while awake, along with aggressive bronchopulmonary hygiene. Labs suggest patient is tolerating increased Lasix dosing. We will check a chest x-ray tomorrow to see if there is improvement in pleural fluid. This has been transudate in the past. 2. Recent prolonged hospitalization with empyema leading to tracheostomy and PEG Continue supportive measures as noted above. Speech therapy following as modified barium swallow revealed evidence of aspiration. Continue nutritional support via PEG tube. 3. History of COPD/paroxysmal atrial fibrillation/malnutrition/history of alcohol and tobacco dependency Complicates care, management, recovery and prognosis. Continue supportive measures as noted above. Physical therapy to work with the patient. This note was generated with [employer] dictation software. It may contain incorrect words, spelling, and punctuation that were not noted in checking the note before signing. Subjective Subjective Patient subjectively feels worse compared to yesterday. Patient states he has had significant shortness of breath at rest. Patient has continued to refuse some pulmonary toileting, but is allowing for aerosols. Patient is not reporting any productive cough. Patient does report frequent urination, but no dysuria. Objective Data Objective Data Vital Signs: Vital Signs Temp Pulse Resp BP Pulse Ox 36.6 C 80 15 106/50 L 93 08/27/21 04:00 08/27/21 07:42 08/27/21 07:18 08/27/21 04:00 08/27/21 07:18 Oxygen Flow Rate (L/min) [4] 15 Oxygen Flow Rate (L/min) [3] 15 Oxygen Flow Rate (L/min) [2] 15 Oxygen Flow Rate (L/min) [1 ( 15 Initial Baseline)] Oxygen Flow Rate (L/min) [3] 8 Oxygen Flow Rate (L/min) [2] 8 Oxygen Flow Rate (L/min) [1 ( 8 Initial Baseline)] Oxygen Flow Rate (L/min) 8 Oxygen Delivery Method [4] High Flow Oxygen Delivery Method [3] High Flow Oxygen Delivery Method [2] High Flow Oxygen Delivery Method [1 ( High Flow Initial Baseline)] Oxygen Delivery Method [3] Nasal Cannula Oxygen Delivery Method [2] Nasal Cannula Oxygen Delivery Method [1 ( Nasal Cannula Initial Baseline)] Oxygen Delivery Method Nasal Cannula Weight: 46.6 kg Body Mass Index (BMI) 17.6 Intake & Output: Intake and Output for Last 24 Hours 08/25/21 08/26/21 08/27/21 23:59 23:59 23:59 Intake Total 2828.75 / 2828.75 1071 / 1746 1380 / 1380 Output Total 950 / 950 550 / 950 800 / 800 Balance 1878.75 / 1878.75 521 / 796 580 / 580 Medical Nutrition Assessment Dietitian: Malnutrition Criteria Met Start: 08/14/21 10:16 Freq: Status: Active Protocol: Document 08/26/21 14:00 (Rec: 08/26/21 14:00 [id number]) Nutrition Malnutrition Evidence of Malnutrition Exists Yes Malnutrition (severe): Chronic Evidenced By Suboptimal Energy Intake ( Severe),Weight Loss (Severe), Physical Changes (Severe) Clinical Problem Chronic Disease or Condition Related Malnutrition Etiology severe, chronic malnutrition r /t inadequate energy intake d/ t swallowing difficulty, increased energy needs d/t chronic resp. failure Signs/Symptoms as evidenced by estimated PO intake meeting <75% of estimated energy needs >3 months; obvious signs of severe muscle/fat wasting in the face, orbital and temporal regions per physical exam; BMI 15.3; wt loss of 7.4kg/14% <2 weeks Status Active Problem Recommendation Dietitian Recommendations/Changes 1) Will increase Jevity 1.5 via PEG to 50mL/hour w/ 150mL H2O flush every 4 hours to provide 1800 calories, 76 g protein, and 1812mL fluid/day. Will monitor fluid status and labs and adjust flushes as appropriate. 2) Daily wts. Recommend close monitoring of electrolytes given risk for refeeding syndrome. Lab / Micro Data Result Diagrams: 08/27/21 06:10 08/27/21 06:10 Labs: Laboratory Results - last 24 hr 08/27/21 06:10: WBC 6.9, RBC 2.58 L, Hgb 8.0 L, Hct 24.9 L, MCV 96.5 H, MCH 31.0, MCHC 32.1, RDW Std Deviation 52.1 H, RDW Coeff of Vita 14.9 H, Plt Count 255, MPV 10.1, Immature Gran % (Auto) 2.000 H, Neut % (Auto) 71.4 H, Lymph % (Auto) 12.6 L, [place] % (Auto) 7.5, Eos % (Auto) 6.1 H, Baso % (Auto) 0.4, Absolute Neuts (auto) 4.9, Absolute Lymphs (auto) 0.87, Nucleated RBC % 0 08/27/21 06:10: Sodium 134 L, Potassium 4.7, Chloride 97 L, Carbon Dioxide 35.0 H, Anion Gap 2 L, BUN 28 H, Creatinine 0.99, Estim Creat Clear Calc 46.42, Est GFR (MDRD) Af Amer 97, Est GFR (MDRD) Non-Af 80, BUN/Creatinine Ratio 28.4 H, Glucose 121 H, Calcium 8.9 Micro: Microbiology 08/13/21 10:45 Stool Stool Occult Blood (LU) - Final 08/14/21 Unknown Fluid - Thoracentesis Fluid Gram Stain - Final 08/14/21 Unknown Fluid - Thoracentesis Fluid Body Fluid Culture - Final No growth aerobically. 08/14/21 Unknown Fluid - Thoracentesis Fluid Anaerobic Culture - Final No growth in 5 days. 08/14/21 01:10 Blood Culture (Wb) - Left Hand Blood Culture - Final No growth in 5 days. 08/14/21 01:02 Blood Culture (Wb) - Anticubital Right Blood Culture - Final No growth in 5 days. 08/13/21 21:00 Urine, Clean Catch Legionella Antigen - Final 08/13/21 21:00 Urine, Clean Catch Streptococcus pneumoniae Antigen (M - Final 08/13/21 18:30 Sputum, Induced/Lukens Gram Stain - Final 08/13/21 18:30 Sputum, Induced/Lukens Respiratory Culture - Final Klebsiella pneumoniae sp pneum Gram positive joann 08/13/21 17:51 Mucosa - Nose Influenza Types A,B Direct FA (LU) - Final Physical Exam Const alert and no apparent distress General Appearance: cooperative Nutritional Appearance: thin HEENT normocephalic and head/scalp atraumatic Eyes PERRL and EOMs intact bilaterally Neck supple Neck Narrative: Tracheostomy site is C/D/I. General: trachea midline Chest Chest: abnormal inspection of the chest increased A-P diameter Resp Resp Narrative: Dullness to percussion at the left base Auscultation: diminished lung sounds; Negative for rales, rhonchi or wheezes Cardio regular rate and regular rhythm GI normal to inspection, nondistended, normoactive bowel sounds Inspection: GI tube present Extremity no clubbing, cyanosis or edema Skin no rashes or lesions noted Neuro CN's II-XII intact bilaterally and no focal motor deficits Psych Mood & Affect: flat affect Charges/Coding Visit Charges Inpatient E&M: 04003 Subs Hosp L2
--- NOTE | 2021-08-27 09:30 | RAD_ITS ---
STUDY: X-RAY CHEST REASON FOR EXAM: Male, 70 years old. Pleural effusion TECHNIQUE: PA and lateral views of the chest. COMPARISON: Comparison is made with prior study dated 08/26/2021. FINDINGS: A tracheostomy tube is in situ. The tip is at 5.5 cm proximal to the nuno. EKG electrodes are seen. Hyperinflation. Small left pleural effusion. This has improved as compared to prior study. Residual atelectasis at the left lung base. Residual blunting of the right costophrenic angle. Normal size heart. Normal mediastinum and genaro. Normal visualized pulmonary arteries. There is atherosclerotic tortuosity of the aortic arch and descending thoracic aorta. There are diffuse degenerative changes of the visualized thoracic spine. Normal visualized ribs, clavicles, and shoulders. There is no demonstrated abnormality of the visualized soft tissue structures of the upper abdomen. RAD/Chest PA and Lateral IMPRESSION: Decreased left pleural effusion with residual infiltration and/or atelectasis at the left lung base. Electronically Signed: Juan Crum MD at 14:16 EST ,
[2021-08-27] MEDS: Enoxaparin 30 MG/0.3 ML Syringe SC (10:00)
--- NOTE | 2021-08-27 10:03 | NURSING ---
When encouraged to use and educated about bipap pt states I'd rather go with the wind and I'd rather be hung by that mask.
--- NOTE | 2021-08-27 10:35 | NURSING ---
Pt SPO2 steadily 83/84%. Pt not willing to wear bipap or be suctioned. Oxygen turned up to 15L at this time. Told this RN she was being manipulative and has an excuse for everything after telling pt that at this time in the event of a cardiac or resp arrest, we would be doing CPR and putting the pt on a ventilator. Told pt that if he was not willing to agree to the treatments put in place to improve oxygenation, that he might reconsider remaining a full code and let staff assist him in setting up a plan of care to keep him comfortable. MD to be made aware in hopes of another discussion. Pt closes eyes at this time stating I need to think about all this...and I need to discuss it with some people... when asked if there was anyone in particular he would like to involve he states that't my business. delivery specialist also made aware of conversation. Will monitor.
--- NOTE | 2021-08-27 17:43 | PN.PALL_ITS ---
Subjective Subjective Patient originally seen by Antonio Hawkins, nurse practitioner from palliative care for consultation 08/23/2021. She did not get very far in her examination when he stated he was tired and needed her to come back later. Therefore, purpose of my visit today. Patient is agitated at my presence. He yelled to hurry up and let him know why I was there. I did explain palliative services to the patient, and he declines any further visits. He does not feel he requires any further care through palliative. I did discuss the patient with his attending, Dr. Arizmendi. States he changed his CODE STATUS to DNR CCA with no intubation today. We will sign off. Objective Data Objective Data Vital Signs: Vital Signs Temp Pulse Resp BP Pulse Ox 97.9 F 85 18 109/65 94 08/27/21 14:28 08/27/21 15:25 08/27/21 14:28 08/27/21 14:28 08/27/21 14:28 Oxygen Flow Rate (L/min) [4] 15 Oxygen Flow Rate (L/min) [3] 15 Oxygen Flow Rate (L/min) [2] 15 Oxygen Flow Rate (L/min) [1 ( 15 Initial Baseline)] Oxygen Flow Rate (L/min) [3] 8 Oxygen Flow Rate (L/min) [2] 8 Oxygen Flow Rate (L/min) [1 ( 8 Initial Baseline)] Oxygen Flow Rate (L/min) 12 Oxygen Delivery Method [4] High Flow Oxygen Delivery Method [3] High Flow Oxygen Delivery Method [2] High Flow Oxygen Delivery Method [1 ( High Flow Initial Baseline)] Oxygen Delivery Method [3] Nasal Cannula Oxygen Delivery Method [2] Nasal Cannula Oxygen Delivery Method [1 ( Nasal Cannula Initial Baseline)] Oxygen Delivery Method Nasal Cannula Weight: 46.6 kg Body Mass Index (BMI) 17.6 Intake & Output: Intake and Output for Last 24 Hours 08/25/21 08/26/21 08/27/21 23:59 23:59 23:59 Intake Total 2828.75 / 2828.75 1071 / 1746 1380 / 1380 Output Total 950 / 950 550 / 950 1300 / 1300 Balance 1878.75 / 1878.75 521 / 796 80 / 80 Medical Nutrition Assessment Dietitian: Malnutrition Criteria Met Start: 08/14/21 10:16 Freq: Status: Active Protocol: Document 08/26/21 14:00 (Rec: 08/26/21 14:00 [id number]) Nutrition Malnutrition Evidence of Malnutrition Exists Yes Malnutrition (severe): Chronic Evidenced By Suboptimal Energy Intake ( Severe),Weight Loss (Severe), Physical Changes (Severe) Clinical Problem Chronic Disease or Condition Related Malnutrition Etiology severe, chronic malnutrition r /t inadequate energy intake d/ t swallowing difficulty, increased energy needs d/t chronic resp. failure Signs/Symptoms as evidenced by estimated PO intake meeting <75% of estimated energy needs >3 months; obvious signs of severe muscle/fat wasting in the face, orbital and temporal regions per physical exam; BMI 15.3; wt loss of 7.4kg/14% <2 weeks Status Active Problem Recommendation Dietitian Recommendations/Changes 1) Will increase Jevity 1.5 via PEG to 50mL/hour w/ 150mL H2O flush every 4 hours to provide 1800 calories, 76 g protein, and 1812mL fluid/day. Will monitor fluid status and labs and adjust flushes as appropriate. 2) Daily wts. Recommend close monitoring of electrolytes given risk for refeeding syndrome. Lab / Micro Data Result Diagrams: 08/27/21 06:10 08/27/21 06:10 Labs: Laboratory Results - last 24 hr 08/27/21 06:10: WBC 6.9, RBC 2.58 L, Hgb 8.0 L, Hct 24.9 L, MCV 96.5 H, MCH 31.0, MCHC 32.1, RDW Std Deviation 52.1 H, RDW Coeff of Vita 14.9 H, Plt Count 255, MPV 10.1, Immature Gran % (Auto) 2.000 H, Neut % (Auto) 71.4 H, Lymph % (Auto) 12.6 L, [place] % (Auto) 7.5, Eos % (Auto) 6.1 H, Baso % (Auto) 0.4, Absolute Neuts (auto) 4.9, Absolute Lymphs (auto) 0.87, Nucleated RBC % 0 08/27/21 06:10: Sodium 134 L, Potassium 4.7, Chloride 97 L, Carbon Dioxide 35.0 H, Anion Gap 2 L, BUN 28 H, Creatinine 0.99, Estim Creat Clear Calc 46.42, Est GFR (MDRD) Af Amer 97, Est GFR (MDRD) Non-Af 80, BUN/Creatinine Ratio 28.4 H, Glucose 121 H, Calcium 8.9 Micro: Microbiology 08/13/21 10:45 Stool Stool Occult Blood (LU) - Final 08/14/21 Unknown Fluid - Thoracentesis Fluid Gram Stain - Final 08/14/21 Unknown Fluid - Thoracentesis Fluid Body Fluid Culture - Final No growth aerobically. 08/14/21 Unknown Fluid - Thoracentesis Fluid Anaerobic Culture - Final No growth in 5 days. 08/14/21 01:10 Blood Culture (Wb) - Left Hand Blood Culture - Final No growth in 5 days. 08/14/21 01:02 Blood Culture (Wb) - Anticubital Right Blood Culture - Final No growth in 5 days. 08/13/21 21:00 Urine, Clean Catch Legionella Antigen - Final 08/13/21 21:00 Urine, Clean Catch Streptococcus pneumoniae Antigen (M - Final 08/13/21 18:30 Sputum, Induced/Lukens Gram Stain - Final 08/13/21 18:30 Sputum, Induced/Lukens Respiratory Culture - Final Klebsiella pneumoniae sp pneum Gram positive joann 08/13/21 17:51 Mucosa - Nose Influenza Types A,B Direct FA (LU) - Final Radiography Diagnostic Testing: Radiology Impression Chest X-Ray 08/27/21 09:30 IMPRESSION: Decreased left pleural effusion with residual infiltration and/or atelectasis at the left lung base. Electronically Signed: Juan Crum MD at 14:16 EST , Physical Exam Const alert and no apparent distress Constitutional Narrative: Agitated and belligerent. Declined auscultation of his chest. General Appearance: disheveled and ill appearing Exam Limitations: behavioral limitations Nutritional Appearance: cachectic Neck Neck Narrative: Tracheostomy Assessment & Plan Assessment/Plan (1) Dyspnea: (2) Anxiety: (3) Debility: PLAN: 70-year-old with multiple chronic complex medical conditions, evaluated by palliative medicine x2 and has subsequently declined further discussion. If he happens to change his mind, recommendations are below. He is certainly a candidate for ongoing palliative care at SNF ([facility]) following discharge. In fact, if he elects to not pursue aggressive treatment and changes his mind about his CODE STATUS, he would be appropriate for hospice care given the severity of his multiple medical conditions. He has been repetitively resistant to care at the intermediate and here at the hospital. 1. Dyspnea secondary to pleural effusion, PNA, and acute on chronic respiratory failure: Encourage compliance with suctioning, AVAPS recommendations, oxygen, and nebulizer treatments. Would consider symptom management with low-dose morphine therapy to help with respiratory distress and work of breathing after risk evaluation. 2. Anxiety: Continue BuSpar and sertraline as ordered. Patient is unsure if he is ever used or tried a benzodiazepine, but again this may be appropriate given the severity of his illness and shortness of breath. Would consider trial of low-dose Ativan to help with anxiety and insomnia, however with his hypoxic respiratory failure would caution. I suspect he has an undiagnosed psychiatric illness. 3. Debility: Continue to work with PT and OT. In conjunction with his malnutrition and cachexia, his limited mobility is putting him at very high risk for skin breakdown.
--- NOTE | 2021-08-27 19:26 | PN.HOSP_ITS ---
Subjective Subjective Patient was seen and examined today, I discussed several issues with him today including his CODE STATUS, I explained to him that if he were to have a cardiopulmonary arrest, the prognosis would be very poor and it would be more than likely that we would not be able to get him off a ventilator, it was also likely that chest compressions would cause severe damage to his thoracic area. After I explained all this to him, he agreed to change his CODE STATUS to a DNR CC arrest without intubation. I told the patient I would encourage him to let nursing suction him as needed, he states that he initially had refused this several days ago but he is now in agreement that he would consent to this. Patient also states that he will try to use AVAPS at night, he states that he is poorly tolerant of this but he will give it another try even if he can tolerate it only for a short amount of time. Patient's respiratory status is still unstable for him to return to an extended care facility. Objective Data Objective Data Vital Signs: Vital Signs Temp Pulse Resp BP Pulse Ox 97.9 F 85 18 109/65 94 08/27/21 14:28 08/27/21 15:25 08/27/21 14:28 08/27/21 14:28 08/27/21 16:00 Oxygen Flow Rate (L/min) [4] 15 Oxygen Flow Rate (L/min) [3] 15 Oxygen Flow Rate (L/min) [2] 15 Oxygen Flow Rate (L/min) [1 ( 15 Initial Baseline)] Oxygen Flow Rate (L/min) [3] 8 Oxygen Flow Rate (L/min) [2] 8 Oxygen Flow Rate (L/min) [1 ( 8 Initial Baseline)] Oxygen Flow Rate (L/min) 12 Oxygen Delivery Method [4] High Flow Oxygen Delivery Method [3] High Flow Oxygen Delivery Method [2] High Flow Oxygen Delivery Method [1 ( High Flow Initial Baseline)] Oxygen Delivery Method [3] Nasal Cannula Oxygen Delivery Method [2] Nasal Cannula Oxygen Delivery Method [1 ( Nasal Cannula Initial Baseline)] Oxygen Delivery Method Nasal Cannula Weight: 46.6 kg Body Mass Index (BMI) 17.6 Intake & Output: Intake and Output for Last 24 Hours 08/25/21 08/26/21 08/27/21 23:59 23:59 23:59 Intake Total 2828.75 / 2828.75 1071 / 1746 1380 / 1380 Output Total 950 / 950 550 / 950 1300 / 1300 Balance 1878.75 / 1878.75 521 / 796 80 / 80 Medical Nutrition Assessment Dietitian: Malnutrition Criteria Met Start: 08/14/21 10:16 Freq: Status: Active Protocol: Document 08/26/21 14:00 (Rec: 08/26/21 14:00 [id number]) Nutrition Malnutrition Evidence of Malnutrition Exists Yes Malnutrition (severe): Chronic Evidenced By Suboptimal Energy Intake ( Severe),Weight Loss (Severe), Physical Changes (Severe) Clinical Problem Chronic Disease or Condition Related Malnutrition Etiology severe, chronic malnutrition r /t inadequate energy intake d/ t swallowing difficulty, increased energy needs d/t chronic resp. failure Signs/Symptoms as evidenced by estimated PO intake meeting <75% of estimated energy needs >3 months; obvious signs of severe muscle/fat wasting in the face, orbital and temporal regions per physical exam; BMI 15.3; wt loss of 7.4kg/14% <2 weeks Status Active Problem Recommendation Dietitian Recommendations/Changes 1) Will increase Jevity 1.5 via PEG to 50mL/hour w/ 150mL H2O flush every 4 hours to provide 1800 calories, 76 g protein, and 1812mL fluid/day. Will monitor fluid status and labs and adjust flushes as appropriate. 2) Daily wts. Recommend close monitoring of electrolytes given risk for refeeding syndrome. Lab / Micro Data Result Diagrams: 08/27/21 06:10 08/27/21 06:10 Labs: Laboratory Results - last 24 hr 08/27/21 06:10: WBC 6.9, RBC 2.58 L, Hgb 8.0 L, Hct 24.9 L, MCV 96.5 H, MCH 31.0, MCHC 32.1, RDW Std Deviation 52.1 H, RDW Coeff of Vita 14.9 H, Plt Count 255, MPV 10.1, Immature Gran % (Auto) 2.000 H, Neut % (Auto) 71.4 H, Lymph % (Auto) 12.6 L, [facility] % (Auto) 7.5, Eos % (Auto) 6.1 H, Baso % (Auto) 0.4, Absolute Neuts (auto) 4.9, Absolute Lymphs (auto) 0.87, Nucleated RBC % 0 08/27/21 06:10: Sodium 134 L, Potassium 4.7, Chloride 97 L, Carbon Dioxide 35.0 H, Anion Gap 2 L, BUN 28 H, Creatinine 0.99, Estim Creat Clear Calc 46.42, Est GFR (MDRD) Af Amer 97, Est GFR (MDRD) Non-Af 80, BUN/Creatinine Ratio 28.4 H, Glucose 121 H, Calcium 8.9 Micro: Microbiology 08/13/21 10:45 Stool Stool Occult Blood (LU) - Final 08/14/21 Unknown Fluid - Thoracentesis Fluid Gram Stain - Final 08/14/21 Unknown Fluid - Thoracentesis Fluid Body Fluid Culture - Final No growth aerobically. 08/14/21 Unknown Fluid - Thoracentesis Fluid Anaerobic Culture - Final No growth in 5 days. 08/14/21 01:10 Blood Culture (Wb) - Left Hand Blood Culture - Final No growth in 5 days. 08/14/21 01:02 Blood Culture (Wb) - Anticubital Right Blood Culture - Final No growth in 5 days. 08/13/21 21:00 Urine, Clean Catch Legionella Antigen - Final 08/13/21 21:00 Urine, Clean Catch Streptococcus pneumoniae Antigen (M - Final 08/13/21 18:30 Sputum, Induced/Lukens Gram Stain - Final 08/13/21 18:30 Sputum, Induced/Lukens Respiratory Culture - Final Klebsiella pneumoniae sp pneum Gram positive joann 08/13/21 17:51 Mucosa - Nose Influenza Types A,B Direct FA (LU) - Final Radiography Diagnostic Testing: Radiology Impression Chest X-Ray 08/27/21 09:30 IMPRESSION: Decreased left pleural effusion with residual infiltration and/or atelectasis at the left lung base. Electronically Signed: Juan Crum MD at 14:16 EST , Physical Exam Const alert, oriented x3 and no apparent distress Constitutional Narrative: Patient appears frail and unwell General Appearance: cooperative, well kempt and well developed Orientation / Consciousness: awake, oriented to person, oriented to place and oriented to time Nutritional Appearance: cachectic HEENT normocephalic, head/scalp atraumatic and moist oral mucous membranes Head and Scalp: normocephalic Eyes PERRL, EOMs intact bilaterally and conjunctivae normal Neck nuchal rigidity, supple, no JVD, thyroid normal and no carotid bruits General: trachea midline Resp normal respiratory effort, no retractions and no use of accessory muscles Resp Narrative: Decreased breath sounds are noted over the left lower lung field Auscultation: Negative for rales, rhonchi or wheezes Cardio regular rate, regular rhythm, S1 normal heart sound, S2 normal heart sound, no murmurs, no rub and no gallops GI normal to inspection, nondistended, normoactive bowel sounds, soft to palpation, non-tender and non-distended GI Narrative: PEG tube is in place Extremity no clubbing, cyanosis or edema Skin no rashes or lesions noted General Skin Exam: no breakdown Neuro oriented x3, CN's II-XII intact bilaterally, no focal motor deficits and no sensory deficits noted Sensorium / Orientation: awake and alert Speech: speech normal Psych Psych Narrative: Patient has flat affect, he appears appropriate Assessment & Plan Assessment/Plan (1) Sepsis with acute hypoxic respiratory failure: PLAN: 1. Acute combined on chronic hypoxic respiratory failure secondary to Klebsiella pneumonia and left pleural effusion-pulmonary medicine is per dissipating in the patient's care, continue bronchodilators, patient is melanie sloan finished a course of antibiotics #2 severe protein and caloric malnutrition-continue PEG tube feedings per nutritional services, nutritional services is following #3 oropharyngeal dysphagia-patient is n.p.o. at this time, continue PEG tube feedings, speech therapy is working with the patient #4 severe debility-patient will need continued rehab services in a senior living facility at the time of discharge #5 left pleural effusion-patient will possibly undergo a thoracentesis tomorrow if there is enough fluid accumulated #6 chronic obstructive pulmonary disease-patient will continue on aerosol treatments, he will use AVAPS at night as tolerated, patient's compliance with medical instructions is poor at times, he told this examiner he would attempt to be more compliant with AVAPS at night. Again patient has agreed to a DNR CC arrest without intubation CODE STATUS. Charges/Coding Visit Charges Inpatient E&M: 95758 Subs Hosp L2
[2021-08-28] VITALS (15 sets, daily range): BP systolic 103–118; BP diastolic 60–68; PULSE 77–88; RESP 18–25; TEMP 36.4–37.2; O2SAT 92–99
[2021-08-28] MEDS: Jevity 1.5 1,000 ML 50 ML GT (06:02)
[2021-08-28 06:52] LABS: Absolute Lymphocyte Count 0.82 X10^3/uL (0.83-4.51); Absolute Neutrophil Count 5.2 X10^3/uL (2.0-7.7); Basophil# 0.03 X10^3/uL; Basophil% 0.4 % (0-1); Eosinophil# 0.37 X10^3/uL; Eosinophils% 5.3 % (0-5); Hemoglobin 7.9 g/dL (13.0-16.5); Lymphocyte # 0.82 X10^3/ul (0.83-4.51); Lymphocyte % 11.7 % (19-41); Mean Corp Hgb Conc 32.9 g/dL (32-36); Mean Corpuscular Volume 94.1 fL (80-94); Mean Platelet Vol. 10.1 fl (6.2-12.0); Monocyte# 0.49 X10^3/uL; NRBC Flagged by Analyzer 0 % (0-5); Neutrophil # 5.19 X10^3/uL (2.7-7.7); Neutrophil % 74.2 % (47-70); Platelet Count 264 K/mm3 (150-450); RBC Distribution Width SD 51.4 fl (35.1-43.9); Red Blood Count 2.55 M/mm3 (4.6-6.2)
[2021-08-28] MEDS: Ipratropium/Albuterol Sulfate 3 ML AMPUL.NEB INHALATION (07:00)
[2021-08-28 07:24] LABS: Anion Gap 3 (5-15); BUN 29 mg/dL (7-18); BUN/Creat Ratio 35.3 RATIO (10-20); Calcium,Total 8.8 mg/dL (8.5-10.1); Chloride 97 mmol/L (98-107); Creatinine, Serum 0.82 mg/dL (0.70-1.30); EST Glomerular Filtration Rate 99 mL/min (>60); Est Glom Filt Rate - Afr Amer 119 mL/min (>60); Estimated Creatinine Clearance 56.04 ml/min; Glucose 115 mg/dL (74-106); Potassium 4.5 mmol/L (3.5-5.1); Sodium Level 136 mmol/L (136-145)
--- NOTE | 2021-08-28 08:14 | NURSING ---
Pt became angry when light was turned on for assessments. Pt continued to yell at student nurse to leave the room. Refused most assessments.
--- NOTE | 2021-08-28 08:29 | PN.CC_ITS ---
Assessment & Plan Assessment/Plan (1) Pleural effusion, right: PLAN: RECOMMENDATIONS: 1. Recommend AVAPS therapy via mask or trach with naps and nightly. Consider removing With sleep 2. Wean supplemental oxygen to maintain saturations at or above 90%. 3. Continue nutritional support via PEG tube. 4. Continue aggressive bronchopulmonary hygiene. 5. Continue scheduled bronchodilators. 6. Continue to monitor renal function closely given diuresis 7. Agree that hospice would be appropriate, given the patient's ongoing refusal of medical therapy. 8. Consider ethics consultation IMPRESSIONS: 1. Acute combined on chronic hypoxemic respiratory failure secondary to Klebsiella pneumonia and pleural effusion The patient has a baseline medical history including COPD and chronic hypoxemic respiratory failure. Plan to continue supportive measures including aggressive bronchopulmonary hygiene and supplemental oxygen for saturations greater than 90%. The patient has completed a treatment course of antimicrobials. The patient has been largely noncompliant with the use of nocturnal Pap therapy. I would strongly urge that AVAPS therapy be utilized with naps and nightly. Patient with significant worsening in oxygenation overnight. Unclear if patient has an element of apnea. Could attempt trach mask at night if patient continues to refuse AVAPS. Plan to continue scheduled bronchodilator therapy while awake, along with aggressive bronchopulmonary hygiene. Labs suggest patient is tolerating increased Lasix dosing. Chest x- ray shows significant response to increase Lasix therapy. 2. Recent prolonged hospitalization with empyema leading to tracheostomy and PEG Continue supportive measures as noted above. Speech therapy following as modified barium swallow revealed evidence of aspiration. Continue nutritional support via PEG tube. 3. History of COPD/paroxysmal atrial fibrillation/malnutrition/history of alcohol and tobacco dependency Complicates care, management, recovery and prognosis. Continue supportive measures as noted above. Physical therapy to work with the patient. This note was generated with [employer] dictation software. It may contain incorrect words, spelling, and punctuation that were not noted in checking the note before signing. Subjective Subjective Patient did okay overnight. Patient continues to go up significantly on FiO2 requirements with sleep. Patient did not report any significant dyspnea this morning but was refusing what ever medication I was trying to give him. Objective Data Objective Data Vital Signs: Vital Signs Temp Pulse Resp BP Pulse Ox 36.4 C L 84 25 H 118/62 95 08/28/21 02:50 08/28/21 07:58 08/28/21 07:58 08/28/21 02:50 08/28/21 02:50 Oxygen Flow Rate (L/min) [4] 15 Oxygen Flow Rate (L/min) [3] 15 Oxygen Flow Rate (L/min) [2] 15 Oxygen Flow Rate (L/min) [1 ( 15 Initial Baseline)] Oxygen Flow Rate (L/min) [3] 8 Oxygen Flow Rate (L/min) [2] 8 Oxygen Flow Rate (L/min) [1 ( 8 Initial Baseline)] Oxygen Flow Rate (L/min) 12 Oxygen Delivery Method [4] High Flow Oxygen Delivery Method [3] High Flow Oxygen Delivery Method [2] High Flow Oxygen Delivery Method [1 ( High Flow Initial Baseline)] Oxygen Delivery Method [3] Nasal Cannula Oxygen Delivery Method [2] Nasal Cannula Oxygen Delivery Method [1 ( Nasal Cannula Initial Baseline)] Oxygen Delivery Method Nasal Cannula Weight: 46.6 kg Body Mass Index (BMI) 17.6 Intake & Output: Intake and Output for Last 24 Hours 08/26/21 08/27/21 08/28/21 23:59 23:59 23:59 Intake Total 1071 / 1746 1380 / 1380 1626 / 1626 Output Total 550 / 950 1380 / 1380 200 / 200 Balance 521 / 796 0 / 0 1426 / 1426 Medical Nutrition Assessment Dietitian: Malnutrition Criteria Met Start: 08/14/21 10:16 Freq: Status: Active Protocol: Document 08/26/21 14:00 (Rec: 08/26/21 14:00 [id number]) Nutrition Malnutrition Evidence of Malnutrition Exists Yes Malnutrition (severe): Chronic Evidenced By Suboptimal Energy Intake ( Severe),Weight Loss (Severe), Physical Changes (Severe) Clinical Problem Chronic Disease or Condition Related Malnutrition Etiology severe, chronic malnutrition r /t inadequate energy intake d/ t swallowing difficulty, increased energy needs d/t chronic resp. failure Signs/Symptoms as evidenced by estimated PO intake meeting <75% of estimated energy needs >3 months; obvious signs of severe muscle/fat wasting in the face, orbital and temporal regions per physical exam; BMI 15.3; wt loss of 7.4kg/14% <2 weeks Status Active Problem Recommendation Dietitian Recommendations/Changes 1) Will increase Jevity 1.5 via PEG to 50mL/hour w/ 150mL H2O flush every 4 hours to provide 1800 calories, 76 g protein, and 1812mL fluid/day. Will monitor fluid status and labs and adjust flushes as appropriate. 2) Daily wts. Recommend close monitoring of electrolytes given risk for refeeding syndrome. Lab / Micro Data Result Diagrams: 08/28/21 05:25 08/28/21 05:25 Labs: Laboratory Results - last 24 hr 08/28/21 05:25: WBC 7.0, RBC 2.55 L, Hgb 7.9 L, Hct 24.0 L, MCV 94.1 H, MCH 31.0, MCHC 32.9, RDW Std Deviation 51.4 H, RDW Coeff of Vita 15.0 H, Plt Count 264, MPV 10.1, Immature Gran % (Auto) 1.400 H, Neut % (Auto) 74.2 H, Lymph % (Auto) 11.7 L, [place] % (Auto) 7.0, Eos % (Auto) 5.3 H, Baso % (Auto) 0.4, Absolute Neuts (auto) 5.2, Absolute Lymphs (auto) 0.82 L, Nucleated RBC % 0 08/28/21 05:25: Sodium 136, Potassium 4.5, Chloride 97 L, Carbon Dioxide 36.0 H, Anion Gap 3 L, BUN 29 H, Creatinine 0.82, Estim Creat Clear Calc 56.04, Est GFR (MDRD) Af Amer 119, Est GFR (MDRD) Non-Af 99, BUN/Creatinine Ratio 35.3 H, Glucose 115 H, Calcium 8.8 Micro: Microbiology 08/13/21 10:45 Stool Stool Occult Blood (LU) - Final 08/14/21 Unknown Fluid - Thoracentesis Fluid Gram Stain - Final 08/14/21 Unknown Fluid - Thoracentesis Fluid Body Fluid Culture - Final No growth aerobically. 08/14/21 Unknown Fluid - Thoracentesis Fluid Anaerobic Culture - Final No growth in 5 days. 08/14/21 01:10 Blood Culture (Wb) - Left Hand Blood Culture - Final No growth in 5 days. 08/14/21 01:02 Blood Culture (Wb) - Anticubital Right Blood Culture - Final No growth in 5 days. 08/13/21 21:00 Urine, Clean Catch Legionella Antigen - Final 08/13/21 21:00 Urine, Clean Catch Streptococcus pneumoniae Antigen (M - Final 08/13/21 18:30 Sputum, Induced/Lukens Gram Stain - Final 08/13/21 18:30 Sputum, Induced/Lukens Respiratory Culture - Final Klebsiella pneumoniae sp pneum Gram positive joann 08/13/21 17:51 Mucosa - Nose Influenza Types A,B Direct FA (LU) - Final Radiography Diagnostic Testing: Radiology Impression Chest X-Ray 08/27/21 09:30 IMPRESSION: Decreased left pleural effusion with residual infiltration and/or atelectasis at the left lung base. Electronically Signed: Juan Crum MD at 14:16 EST , Physical Exam Const alert and no apparent distress General Appearance: cooperative Nutritional Appearance: thin HEENT normocephalic and head/scalp atraumatic Eyes PERRL and EOMs intact bilaterally Neck supple Neck Narrative: Tracheostomy site is C/D/I. General: trachea midline Chest Chest: abnormal inspection of the chest increased A-P diameter Resp Resp Narrative: Dullness to percussion at the left base much improved Auscultation: diminished lung sounds; Negative for rales, rhonchi or wheezes Cardio regular rate and regular rhythm GI normal to inspection, nondistended, normoactive bowel sounds Inspection: GI tube present Extremity no clubbing, cyanosis or edema Skin no rashes or lesions noted Neuro CN's II-XII intact bilaterally and no focal motor deficits Psych Mood & Affect: flat affect Charges/Coding Visit Charges Inpatient E&M: 10119 Subs Hosp L3
--- NOTE | 2021-08-28 08:40 | RAD_ITS ---
STUDY: X-RAY CHEST REASON FOR EXAM: Male, 70 years old. Pleural effusion TECHNIQUE: PA and lateral views of the chest. COMPARISON: Comparison is made with prior study dated 08/27/2021. FINDINGS: EKG electrodes are seen. A tracheostomy tube is in situ. The tip is at 3.9 cm proximal to the nuno. Slight increase in the left pleural effusion with left basilar atelectasis and/or infiltrate. Mild residual pleural-parenchymal changes at the right lung base. Normal size heart. Normal mediastinum and genaro. Normal visualized pulmonary arteries. There is atherosclerotic calcification of the aortic arch with tortuosity. Normal visualized thoracic spine. Normal visualized ribs, clavicles, and shoulders. There is no demonstrated abnormality of the visualized soft tissue structures of the upper abdomen. RAD/Chest PA and Lateral IMPRESSION: Slight increase in the left pleural effusion with persistent left basilar atelectasis and/or infiltrate. Electronically Signed: Juan Crum MD at 12:44 EST ,
[2021-08-28] MEDS: Potassium Chloride Oral Soln 20 MEQ/15 ML UDC 40 MEQ GT (09:41)
[2021-08-28] MEDS: Enoxaparin 30 MG/0.3 ML Syringe SC (09:41)
[2021-08-28] MEDS: Sertraline 100 MG Tablet PO (09:42)
[2021-08-28] MEDS: Famotidine 20 MG Tablet PO (09:42)
--- NOTE | 2021-08-28 09:42 | NURSING ---
Pt accepted medications on the condition two of the four be given now and the other two later. Stated he did not want to know what he was getting. Pt denied questions about medications and medications were given via PEG tube with Merlyn Bragg RN.
--- NOTE | 2021-08-28 10:15 | NURSING ---
Assessed PEG with SN. Much difficulty flushing medications at this time and side port keeps becoming disconnected causing leakage. welder tech made aware. End of PEG entirely replaced. Able to instill 3-5 cc coke into the PEG tube after expressing tube feeding that was in the tube, coming out with the consistency of peanut butter. Coke left to dwell in the PEG tube at this time. Will reassess. Pt instructed on the importance of letting staff take care of invasive lines in order to keep them functioning appropriately to which pt responds Oh so it's all my fault. Will monitor.
--- NOTE | 2021-08-28 18:25 | NURSING ---
Reviewed and agree with Emilee Oviedo SN documentation
--- NOTE | 2021-08-28 19:04 | PCM.PN.HOSP ---
Subjective Subjective Patient was seen and examined today, I talked at length with his mother who is visiting him at the time. Patient's PEG tube obstructed today and I was able to open it up with a declogger. Patient states he does not want to wear a mask (BiPAP) at night, I talked briefly with pulmonary medicine and they stated that the patient could be hooked up a ventilator but pulmonary medicine was under the impression the patient did not want this to be done. I will have a further discussion with the patient concerning this tomorrow, he might be able to be transferred to a different extended care facility where they accept vent patients. Patient's mother was in agreement that the patient should be a DNR CC arrest no intubation, she agreed with the patient's decision concerning this. Objective Data Objective Data Vital Signs: Vital Signs Temp Pulse Resp BP Pulse Ox 98 F 84 25 H 105/68 96 08/28/21 13:50 08/28/21 17:09 08/28/21 18:04 08/28/21 13:50 08/28/21 13:50 Oxygen Flow Rate (L/min) [4] 15 Oxygen Flow Rate (L/min) [3] 15 Oxygen Flow Rate (L/min) [2] 15 Oxygen Flow Rate (L/min) [1 ( 15 Initial Baseline)] Oxygen Flow Rate (L/min) [3] 8 Oxygen Flow Rate (L/min) [2] 8 Oxygen Flow Rate (L/min) [1 ( 8 Initial Baseline)] Oxygen Flow Rate (L/min) 8 Oxygen Delivery Method [4] High Flow Oxygen Delivery Method [3] High Flow Oxygen Delivery Method [2] High Flow Oxygen Delivery Method [1 ( High Flow Initial Baseline)] Oxygen Delivery Method [3] Nasal Cannula Oxygen Delivery Method [2] Nasal Cannula Oxygen Delivery Method [1 ( Nasal Cannula Initial Baseline)] Oxygen Delivery Method Nasal Cannula Weight: 46.6 kg Body Mass Index (BMI) 17.6 Intake & Output: Intake and Output for Last 24 Hours 08/26/21 08/27/21 08/28/21 23:59 23:59 23:59 Intake Total 1071 / 1746 1380 / 1380 1649 / 1649 Output Total 550 / 950 1380 / 1380 900 / 900 Balance 521 / 796 0 / 0 749 / 749 Medical Nutrition Assessment Dietitian: Malnutrition Criteria Met Start: 08/14/21 10:16 Freq: Status: Active Protocol: Document 08/26/21 14:00 (Rec: 08/26/21 14:00 [id number]) Nutrition Malnutrition Evidence of Malnutrition Exists Yes Malnutrition (severe): Chronic Evidenced By Suboptimal Energy Intake ( Severe),Weight Loss (Severe), Physical Changes (Severe) Clinical Problem Chronic Disease or Condition Related Malnutrition Etiology severe, chronic malnutrition r /t inadequate energy intake d/ t swallowing difficulty, increased energy needs d/t chronic resp. failure Signs/Symptoms as evidenced by estimated PO intake meeting <75% of estimated energy needs >3 months; obvious signs of severe muscle/fat wasting in the face, orbital and temporal regions per physical exam; BMI 15.3; wt loss of 7.4kg/14% <2 weeks Status Active Problem Recommendation Dietitian Recommendations/Changes 1) Will increase Jevity 1.5 via PEG to 50mL/hour w/ 150mL H2O flush every 4 hours to provide 1800 calories, 76 g protein, and 1812mL fluid/day. Will monitor fluid status and labs and adjust flushes as appropriate. 2) Daily wts. Recommend close monitoring of electrolytes given risk for refeeding syndrome. Lab / Micro Data Result Diagrams: 08/28/21 05:25 08/28/21 05:25 Labs: Laboratory Results - last 24 hr 08/28/21 05:25: WBC 7.0, RBC 2.55 L, Hgb 7.9 L, Hct 24.0 L, MCV 94.1 H, MCH 31.0, MCHC 32.9, RDW Std Deviation 51.4 H, RDW Coeff of Vita 15.0 H, Plt Count 264, MPV 10.1, Immature Gran % (Auto) 1.400 H, Neut % (Auto) 74.2 H, Lymph % (Auto) 11.7 L, [place] % (Auto) 7.0, Eos % (Auto) 5.3 H, Baso % (Auto) 0.4, Absolute Neuts (auto) 5.2, Absolute Lymphs (auto) 0.82 L, Nucleated RBC % 0 08/28/21 05:25: Sodium 136, Potassium 4.5, Chloride 97 L, Carbon Dioxide 36.0 H, Anion Gap 3 L, BUN 29 H, Creatinine 0.82, Estim Creat Clear Calc 56.04, Est GFR (MDRD) Af Amer 119, Est GFR (MDRD) Non-Af 99, BUN/Creatinine Ratio 35.3 H, Glucose 115 H, Calcium 8.8 Micro: Microbiology 08/13/21 10:45 Stool Stool Occult Blood (LU) - Final 08/14/21 Unknown Fluid - Thoracentesis Fluid Gram Stain - Final 08/14/21 Unknown Fluid - Thoracentesis Fluid Body Fluid Culture - Final No growth aerobically. 08/14/21 Unknown Fluid - Thoracentesis Fluid Anaerobic Culture - Final No growth in 5 days. 08/14/21 01:10 Blood Culture (Wb) - Left Hand Blood Culture - Final No growth in 5 days. 08/14/21 01:02 Blood Culture (Wb) - Anticubital Right Blood Culture - Final No growth in 5 days. 08/13/21 21:00 Urine, Clean Catch Legionella Antigen - Final 08/13/21 21:00 Urine, Clean Catch Streptococcus pneumoniae Antigen (M - Final 08/13/21 18:30 Sputum, Induced/Lukens Gram Stain - Final 08/13/21 18:30 Sputum, Induced/Lukens Respiratory Culture - Final Klebsiella pneumoniae sp pneum Gram positive joann 08/13/21 17:51 Mucosa - Nose Influenza Types A,B Direct FA (LU) - Final Radiography Diagnostic Testing: Radiology Impression Chest X-Ray 08/28/21 08:40 IMPRESSION: Slight increase in the left pleural effusion with persistent left basilar atelectasis and/or infiltrate. Electronically Signed: Juan Crum MD at 12:44 EST , Physical Exam Narrative alert, oriented x3 and no apparent distress Constitutional Narrative: Patient appears frail and unwell General Appearance: cooperative, well kempt and well developed Orientation / Consciousness: awake, oriented to person, oriented to place and oriented to time Nutritional Appearance: cachectic HEENT normocephalic, head/scalp atraumatic and moist oral mucous membranes Head and Scalp: normocephalic Eyes PERRL, EOMs intact bilaterally and conjunctivae normal Neck nuchal rigidity, supple, no JVD, thyroid normal and no carotid bruits General: trachea midline Resp normal respiratory effort, no retractions and no use of accessory muscles Resp Narrative: Decreased breath sounds are noted over the left lower lung field Auscultation: Negative for rales, rhonchi or wheezes Cardio regular rate, regular rhythm, S1 normal heart sound, S2 normal heart sound, no murmurs, no rub and no gallops GI normal to inspection, nondistended, normoactive bowel sounds, soft to palpation, non-tender and non-distended GI Narrative: PEG tube is in place Extremity no clubbing, cyanosis or edema Skin no rashes or lesions noted General Skin Exam: no breakdown Neuro oriented x3, CN's II-XII intact bilaterally, no focal motor deficits and no sensory deficits noted Sensorium / Orientation: awake and alert Speech: speech normal Psych Psych Narrative: Patient has flat affect, he appears appropriate Assessment & Plan Assessment/Plan (1) Debility: (2) Sepsis with acute hypoxic respiratory failure: PLAN: 1. Acute combined on chronic hypoxic respiratory failure secondary to Klebsiella pneumonia and left pleural effusion-pulmonary medicine is participating in the patient's care, continue bronchodilators, patient has currently finished a course of antibiotics #2 severe protein and caloric malnutrition-continue PEG tube feedings per nutritional services, nutritional services is following #3 oropharyngeal dysphagia-patient is n.p.o. at this time, continue PEG tube feedings, speech therapy is working with the patient #4 severe debility-patient will need continued rehab services in a correction facility at the time of discharge #5 left pleural effusion-according to pulmonary medicine, they did not feel the patient required a left thoracentesis today, pulmonary medicine felt that the patient was diuresing and the size of the effusion was decreasing in size. #6 chronic obstructive pulmonary disease-patient will continue on aerosol treatments, he will use AVAPS at night as tolerated, patient's compliance with medical instructions is poor at times, he told this examiner he would attempt to be more compliant with AVAPS at night. It might be an option to hook this up to his trach if possible. Prognosis remains guarded at this time. Charges/Coding Visit Charges Inpatient E&M: 92375 Subs Hosp L2
[2021-08-29] VITALS (16 sets, daily range): BP systolic 100–109; BP diastolic 52–63; PULSE 73–84; RESP 14–20; TEMP 36.3–37.1; O2SAT 93–100
[2021-08-29 06:44] LABS: Anion Gap 3 (5-15); BUN 33 mg/dL (7-18); BUN/Creat Ratio 39.6 RATIO (10-20); Calcium,Total 8.6 mg/dL (8.5-10.1); Chloride 98 mmol/L (98-107); Creatinine, Serum 0.83 mg/dL (0.70-1.30); EST Glomerular Filtration Rate 97 mL/min (>60); Est Glom Filt Rate - Afr Amer 117 mL/min (>60); Estimated Creatinine Clearance 57.98 ml/min; Glucose 130 mg/dL (74-106); Potassium 4.4 mmol/L (3.5-5.1); Sodium Level 136 mmol/L (136-145)
[2021-08-29] MEDS: Ipratropium/Albuterol Sulfate 3 ML AMPUL.NEB INHALATION ×2 (07:15→13:20)
--- NOTE | 2021-08-29 08:58 | PCM.PN.INT ---
Assessment & Plan Assessment/Plan (1) Pleural effusion, right: PLAN: RECOMMENDATIONS: 1. Recommend AVAPS therapy via mask or trach with naps and nightly. 2. Wean supplemental oxygen to maintain saturations at or above 90%. 3. Continue nutritional support via PEG tube. 4. Continue aggressive bronchopulmonary hygiene. 5. Continue scheduled bronchodilators. 6. Consider evaluation for Pleurx catheter on left 7. Agree that hospice would be appropriate, given the patient's ongoing refusal of medical therapy. IMPRESSIONS: 1. Acute combined on chronic hypoxemic respiratory failure secondary to Klebsiella pneumonia and pleural effusion The patient has a baseline medical history including COPD and chronic hypoxemic respiratory failure. Plan to continue supportive measures including aggressive bronchopulmonary hygiene and supplemental oxygen for saturations greater than 90%. The patient has completed a treatment course of antimicrobials. The patient has been largely noncompliant with the use of nocturnal Pap therapy. I would strongly urge that AVAPS therapy be utilized with naps and nightly. Patient with significant worsening in oxygenation overnight. Unclear if patient has an element of apnea. Could attempt trach mask at night if patient continues to refuse AVAPS. Plan to continue scheduled bronchodilator therapy while awake, along with aggressive bronchopulmonary hygiene. Patient still with pleural effusion on the left despite increased Lasix therapy. Clinical suspicion for decreased oncotic pressure leading to transudate. Nutrition will take some time to improve. Given the fact that he has had multiple thoracentesis in the last month, would recommend evaluating patient for a Pleurx catheter as he appears to want to remain aggressive and this could stabilize the left chest and help facilitate transition to outpatient care. 2. Recent prolonged hospitalization with empyema leading to tracheostomy and PEG Continue supportive measures as noted above. Speech therapy following as modified barium swallow revealed evidence of aspiration. Continue nutritional support via PEG tube. 3. History of COPD/paroxysmal atrial fibrillation/malnutrition/history of alcohol and tobacco dependency Complicates care, management, recovery and prognosis. Continue supportive measures as noted above. Physical therapy to work with the patient. This note was generated with [employer] dictation software. It may contain incorrect words, spelling, and punctuation that were not noted in checking the note before signing. Subjective Subjective Patient continues to be marginally cooperative with care. Patient did allow trach mask overnight. Patient subjectively feels unchanged, but continues to require significant FiO2 overnight. Patient denies any chest pain. Objective Data Objective Data Vital Signs: Vital Signs Temp Pulse Resp BP Pulse Ox 36.6 C 77 20 H 109/59 L 100 08/29/21 05:05 08/29/21 07:22 08/29/21 07:15 08/29/21 05:05 08/29/21 07:15 Oxygen Flow Rate (L/min) [4] 15 Oxygen Flow Rate (L/min) [3] 15 Oxygen Flow Rate (L/min) [2] 15 Oxygen Flow Rate (L/min) [1 ( 15 Initial Baseline)] Oxygen Flow Rate (L/min) [3] 8 Oxygen Flow Rate (L/min) [2] 8 Oxygen Flow Rate (L/min) [1 ( 8 Initial Baseline)] Oxygen Flow Rate (L/min) 12 Oxygen Delivery Method [4] High Flow Oxygen Delivery Method [3] High Flow Oxygen Delivery Method [2] High Flow Oxygen Delivery Method [1 ( High Flow Initial Baseline)] Oxygen Delivery Method [3] Nasal Cannula Oxygen Delivery Method [2] Nasal Cannula Oxygen Delivery Method [1 ( Nasal Cannula Initial Baseline)] Oxygen Delivery Method High Flow Weight: 48.8 kg Body Mass Index (BMI) 17.6 Intake & Output: Intake and Output for Last 24 Hours 08/27/21 08/28/21 08/29/21 23:59 23:59 23:59 Intake Total 1380 / 1380 1649 / 1649 1345 / 1345 Output Total 1380 / 1380 900 / 1300 500 / 500 Balance 0 / 0 749 / 349 845 / 845 Medical Nutrition Assessment Dietitian: Malnutrition Criteria Met Start: 08/14/21 10:16 Freq: Status: Active Protocol: Document 08/26/21 14:00 (Rec: 08/26/21 14:00 [id number]) Nutrition Malnutrition Evidence of Malnutrition Exists Yes Malnutrition (severe): Chronic Evidenced By Suboptimal Energy Intake ( Severe),Weight Loss (Severe), Physical Changes (Severe) Clinical Problem Chronic Disease or Condition Related Malnutrition Etiology severe, chronic malnutrition r /t inadequate energy intake d/ t swallowing difficulty, increased energy needs d/t chronic resp. failure Signs/Symptoms as evidenced by estimated PO intake meeting <75% of estimated energy needs >3 months; obvious signs of severe muscle/fat wasting in the face, orbital and temporal regions per physical exam; BMI 15.3; wt loss of 7.4kg/14% <2 weeks Status Active Problem Recommendation Dietitian Recommendations/Changes 1) Will increase Jevity 1.5 via PEG to 50mL/hour w/ 150mL H2O flush every 4 hours to provide 1800 calories, 76 g protein, and 1812mL fluid/day. Will monitor fluid status and labs and adjust flushes as appropriate. 2) Daily wts. Recommend close monitoring of electrolytes given risk for refeeding syndrome. Lab / Micro Data Result Diagrams: 08/28/21 05:25 08/29/21 06:08 Labs: Laboratory Results - last 24 hr 08/29/21 06:08: Sodium 136, Potassium 4.4, Chloride 98, Carbon Dioxide 35.0 H, Anion Gap 3 L, BUN 33 H, Creatinine 0.83, Estim Creat Clear Calc 57.98, Est GFR (MDRD) Af Amer 117, Est GFR (MDRD) Non-Af 97, BUN/Creatinine Ratio 39.6 H, Glucose 130 H, Calcium 8.6 Micro: Microbiology 08/13/21 10:45 Stool Stool Occult Blood (LU) - Final 08/14/21 Unknown Fluid - Thoracentesis Fluid Gram Stain - Final 08/14/21 Unknown Fluid - Thoracentesis Fluid Body Fluid Culture - Final No growth aerobically. 08/14/21 Unknown Fluid - Thoracentesis Fluid Anaerobic Culture - Final No growth in 5 days. 08/14/21 01:10 Blood Culture (Wb) - Left Hand Blood Culture - Final No growth in 5 days. 08/14/21 01:02 Blood Culture (Wb) - Anticubital Right Blood Culture - Final No growth in 5 days. 08/13/21 21:00 Urine, Clean Catch Legionella Antigen - Final 08/13/21 21:00 Urine, Clean Catch Streptococcus pneumoniae Antigen (M - Final 08/13/21 18:30 Sputum, Induced/Lukens Gram Stain - Final 08/13/21 18:30 Sputum, Induced/Lukens Respiratory Culture - Final Klebsiella pneumoniae sp pneum Gram positive joann 08/13/21 17:51 Mucosa - Nose Influenza Types A,B Direct FA (LU) - Final Radiography Diagnostic Testing: Radiology Impression Chest X-Ray 08/28/21 08:40 IMPRESSION: Slight increase in the left pleural effusion with persistent left basilar atelectasis and/or infiltrate. Electronically Signed: Juan Crum MD at 12:44 EST , Physical Exam Const alert and no apparent distress General Appearance: cooperative Nutritional Appearance: thin HEENT normocephalic and head/scalp atraumatic Eyes PERRL and EOMs intact bilaterally Neck supple Neck Narrative: Tracheostomy site is C/D/I. General: trachea midline Chest Chest: abnormal inspection of the chest increased A-P diameter Resp Resp Narrative: Dullness to percussion at the left base Auscultation: diminished lung sounds; Negative for rales, rhonchi or wheezes Cardio regular rate and regular rhythm GI normal to inspection, nondistended, normoactive bowel sounds Inspection: GI tube present Extremity no clubbing, cyanosis or edema Skin no rashes or lesions noted Neuro CN's II-XII intact bilaterally and no focal motor deficits Psych Mood & Affect: flat affect Charges/Coding Visit Charges Inpatient E&M: 87308 Subs Hosp L3
[2021-08-29] MEDS: Jevity 1.5 1,000 ML 50 ML GT (09:21)
[2021-08-29] MEDS: Enoxaparin 30 MG/0.3 ML Syringe SC (09:21)
[2021-08-29] MEDS: Famotidine 20 MG Tablet PO ×2 (09:22→21:29)
[2021-08-29] MEDS: Potassium Chloride Oral Soln 20 MEQ/15 ML UDC 40 MEQ GT (09:22)
[2021-08-29] MEDS: Sertraline 100 MG Tablet PO (09:22)
--- NOTE | 2021-08-29 15:11 | CASEMGMT ---
Physician asked about patient going to a half-way that takes vent patients. There are two that are somewhat close to [place]. One in [place] and one in [place]. SW met with patient and tried to explain why one of these facilities would be better for him and his respiratory issues. Patient did not seem to understand. SW will talk with patient's mom to make sure someone understands and is aware. Rachel Rubalcava MANAGER [employer]
--- NOTE | 2021-08-29 17:43 | PN_ITS ---
Subjective Subjective Patient was seen and examined today, I talked with his mother who was in his room at the time of my examination, I explained to the patient and his mother that he will need AVAPS at night due to central sleep apnea. This will mean the patient will have to go to another extended care facility at the time of dischar ge from the hospital that allows its use at night. The patient and the patient's mother seemed understand this at this time. Tonight we will place the patient on AVAPS through his trach with 30% oxygen. Objective Data Objective Data Vital Signs: Vital Signs Temp Pulse Resp BP Pulse Ox 97.6 F L 79 18 102/58 L 94 08/29/21 14:41 08/29/21 14:41 08/29/21 14:41 08/29/21 14:41 08/29/21 14:41 Oxygen Flow Rate (L/min) [4] 15 Oxygen Flow Rate (L/min) [3] 15 Oxygen Flow Rate (L/min) [2] 15 Oxygen Flow Rate (L/min) [1 ( 15 Initial Baseline)] Oxygen Flow Rate (L/min) [3] 8 Oxygen Flow Rate (L/min) [2] 8 Oxygen Flow Rate (L/min) [1 ( 8 Initial Baseline)] Oxygen Flow Rate (L/min) 12 Oxygen Delivery Method [4] High Flow Oxygen Delivery Method [3] High Flow Oxygen Delivery Method [2] High Flow Oxygen Delivery Method [1 ( High Flow Initial Baseline)] Oxygen Delivery Method [3] Nasal Cannula Oxygen Delivery Method [2] Nasal Cannula Oxygen Delivery Method [1 ( Nasal Cannula Initial Baseline)] Oxygen Delivery Method High Flow Weight: 48.8 kg Body Mass Index (BMI) 17.6 Intake & Output: Intake and Output for Last 24 Hours 08/27/21 08/28/21 08/29/21 23:59 23:59 23:59 Intake Total 1380 / 1380 1649 / 1649 1345 / 1345 Output Total 1380 / 1380 900 / 1300 700 / 700 Balance 0 / 0 749 / 349 645 / 645 Medical Nutrition Assessment Dietitian: Malnutrition Criteria Met Start: 08/14/21 10:16 Freq: Status: Active Protocol: Document 08/26/21 14:00 (Rec: 08/26/21 14:00 [id number]) Nutrition Malnutrition Evidence of Malnutrition Exists Yes Malnutrition (severe): Chronic Evidenced By Suboptimal Energy Intake ( Severe),Weight Loss (Severe), Physical Changes (Severe) Clinical Problem Chronic Disease or Condition Related Malnutrition Etiology severe, chronic malnutrition r /t inadequate energy intake d/ t swallowing difficulty, increased energy needs d/t chronic resp. failure Signs/Symptoms as evidenced by estimated PO intake meeting <75% of estimated energy needs >3 months; obvious signs of severe muscle/fat wasting in the face, orbital and temporal regions per physical exam; BMI 15.3; wt loss of 7.4kg/14% <2 weeks Status Active Problem Recommendation Dietitian Recommendations/Changes 1) Will increase Jevity 1.5 via PEG to 50mL/hour w/ 150mL H2O flush every 4 hours to provide 1800 calories, 76 g protein, and 1812mL fluid/day. Will monitor fluid status and labs and adjust flushes as appropriate. 2) Daily wts. Recommend close monitoring of electrolytes given risk for refeeding syndrome. Lab / Micro Data Result Diagrams: 08/28/21 05:25 08/29/21 06:08 Labs: Laboratory Results - last 24 hr 08/29/21 06:08: Sodium 136, Potassium 4.4, Chloride 98, Carbon Dioxide 35.0 H, Anion Gap 3 L, BUN 33 H, Creatinine 0.83, Estim Creat Clear Calc 57.98, Est GFR (MDRD) Af Amer 117, Est GFR (MDRD) Non-Af 97, BUN/Creatinine Ratio 39.6 H, Glucose 130 H, Calcium 8.6 Micro: Microbiology 08/13/21 10:45 Stool Stool Occult Blood (LU) - Final 08/14/21 Unknown Fluid - Thoracentesis Fluid Gram Stain - Final 08/14/21 Unknown Fluid - Thoracentesis Fluid Body Fluid Culture - Final No growth aerobically. 08/14/21 Unknown Fluid - Thoracentesis Fluid Anaerobic Culture - Final No growth in 5 days. 08/14/21 01:10 Blood Culture (Wb) - Left Hand Blood Culture - Final No growth in 5 days. 08/14/21 01:02 Blood Culture (Wb) - Anticubital Right Blood Culture - Final No growth in 5 days. 08/13/21 21:00 Urine, Clean Catch Legionella Antigen - Final 08/13/21 21:00 Urine, Clean Catch Streptococcus pneumoniae Antigen (M - Final 08/13/21 18:30 Sputum, Induced/Lukens Gram Stain - Final 08/13/21 18:30 Sputum, Induced/Lukens Respiratory Culture - Final Klebsiella pneumoniae sp pneum Gram positive joann 08/13/21 17:51 Mucosa - Nose Influenza Types A,B Direct FA (LU) - Final Physical Exam Narrative alert, oriented x3 and no apparent distress Constitutional Narrative: Patient appears frail and unwell General Appearance: cooperative, well kempt and well developed Orientation / Consciousness: awake, oriented to person, oriented to place and oriented to time Nutritional Appearance: cachectic HEENT normocephalic, head/scalp atraumatic and moist oral mucous membranes Head and Scalp: normocephalic Eyes PERRL, EOMs intact bilaterally and conjunctivae normal Neck nuchal rigidity, supple, no JVD, thyroid normal and no carotid bruits General: trachea midline Resp normal respiratory effort, no retractions and no use of accessory muscles Resp Narrative: Decreased breath sounds are noted over the left lower lung field Auscultation: Negative for rales, rhonchi or wheezes Cardio regular rate, regular rhythm, S1 normal heart sound, S2 normal heart sound, no murmurs, no rub and no gallops GI normal to inspection, nondistended, normoactive bowel sounds, soft to palpation, non-tender and non-distended GI Narrative: PEG tube is in place Extremity no clubbing, cyanosis or edema Skin no rashes or lesions noted General Skin Exam: no breakdown Neuro oriented x3, CN's II-XII intact bilaterally, no focal motor deficits and no sensory deficits noted Sensorium / Orientation: awake and alert Speech: speech normal Psych Psych Narrative: Patient has flat affect, he appears appropriate Assessment & Plan Assessment/Plan (1) Debility: (2) Sepsis with acute hypoxic respiratory failure: PLAN: 1. Acute combined on chronic hypoxic respiratory failure secondary to Klebsiella pneumonia and left pleural effusion-pulmonary medicine is participating in the patient's care, continue bronchodilators, patient has currently finished a course of antibiotics #2 severe protein and caloric malnutrition-continue PEG tube feedings per nutritional services, nutritional services is following #3 oropharyngeal dysphagia-patient is n.p.o. at this time, continue PEG tube feedings, speech therapy is working with the patient #4 severe debility-patient will need continued rehab services in a intermediate facility at the time of discharge, he will need to be accepted at a facility that allows AVAPS usage at night. #5 left pleural effusion-according to pulmonary medicine, this is improved with use of diuretics, pulmonary medicine brought up the possibility of a Pleurx catheter being placed in the left pleural cavity but then stated because he was responding well to diuresis, they would hold off recommending that at this time. #6 chronic obstructive pulmonary disease-patient will continue on aerosol treatments, he will use AVAPS at night as tolerated, patient's compliance with medical instructions is poor at times, he told this examiner he would attempt to be more compliant with AVAPS at night. #7 Central sleep apnea-again patient will be on AVAPS through his trach tonight, if this is successful and he keeps it on, he will need placement in a facility that allows this. Prognosis is guarded at this time. Charges/Coding Visit Charges Inpatient E&M: 85128 Subs Hosp L2
[2021-08-29] MEDS: Mirtazapine 15 MG Tablet 7.5 MG PO (21:29)
[2021-08-30] VITALS (20 sets, daily range): BP systolic 95–108; BP diastolic 55–70; PULSE 71–97; RESP 14–26; TEMP 36.6–37; O2SAT 84–100
[2021-08-30] MEDS: Jevity 1.5 1,000 ML 50 ML GT (06:41)
[2021-08-30] MEDS: Furosemide 40 MG/4 ML Vial IV (06:57)
[2021-08-30] MEDS: 0.9% Saline Lock 10 ML Syringe IV (06:58)
[2021-08-30 07:13] LABS: Anion Gap 2 (5-15); BUN 31 mg/dL (7-18); BUN/Creat Ratio 39.4 RATIO (10-20); Chloride 101 mmol/L (98-107); Creatinine, Serum 0.79 mg/dL (0.70-1.30); EST Glomerular Filtration Rate 104 mL/min (>60); Est Glom Filt Rate - Afr Amer 125 mL/min (>60); Estimated Creatinine Clearance 45.36 ml/min; Glucose 112 mg/dL (74-106); Potassium 5.1 mmol/L (3.5-5.1); Sodium Level 137 mmol/L (136-145)
[2021-08-30] MEDS: Ipratropium/Albuterol Sulfate 3 ML AMPUL.NEB INHALATION ×3 (07:28→23:48)
--- NOTE | 2021-08-30 08:17 | CPS ---
Patient couldn't tolerate AVAPS through his trach, patient on AVAPS for 1 min
--- NOTE | 2021-08-30 08:18 | CASEMGMT ---
Late Entry: note from yesterday 08-29-21 Physician did talk with patient's mom and patient. Physician explained why patient needs to switch facilities. Both were in agreement. PILI spoke yesterday with [facility]. SW had faxed referral earlier. PILI spoke with Linden, Respiratory therapist at [facility]. Linden asked if [facility] could trial non invasive vent on trach for patient. The hope would be he won't require as much O2 during the day. PILI spoke with physician and he agreed this could be done tonight (Fri). [facility] would prefer patient's O2 be at 8L. Their concentrator only goes up to 10L. SW will talk with patient and his mom to let them know about the 2 facilities that take vents. One of which [facility] who was not taking patients. Rachel Rubalcava [employer] VICE PRESIDENT [facility]LIE
[2021-08-30] MEDS: Potassium Chloride Oral Soln 20 MEQ/15 ML UDC 40 MEQ GT (09:30)
[2021-08-30] MEDS: Enoxaparin 30 MG/0.3 ML Syringe SC (09:30)
[2021-08-30] MEDS: Sertraline 100 MG Tablet PO (09:31)
[2021-08-30] MEDS: Famotidine 20 MG Tablet PO ×2 (09:31→19:55)
--- NOTE | 2021-08-30 11:10 | PCM.PN.INT ---
Assessment & Plan Assessment/Plan (1) Pleural effusion, right: PLAN: RECOMMENDATIONS: 1. Recommend AVAPS therapy trach with naps and nightly. 2. Wean supplemental oxygen to maintain saturations at or above 90%. 3. Continue nutritional support via PEG tube. 4. Continue aggressive bronchopulmonary hygiene. 5. Continue scheduled bronchodilators. 6. Consider evaluation for Pleurx catheter on left versus additional diuretics 7. Agree that hospice would be appropriate, given the patient's ongoing refusal of medical therapy. IMPRESSIONS: 1. Acute combined on chronic hypoxemic respiratory failure secondary to Klebsiella pneumonia and pleural effusion The patient has a baseline medical history including COPD and chronic hypoxemic respiratory failure. Plan to continue supportive measures including aggressive bronchopulmonary hygiene and supplemental oxygen for saturations greater than 90%. The patient has completed a treatment course of antimicrobials. The patient has been largely noncompliant with the use of nocturnal Pap therapy. I would strongly urge that AVAPS therapy be utilized with naps and nightly. Patient continues to have significant worsening of oxygenation overnight. This would be suggestive of possible central sleep apnea. Patient does have relatively advanced lung disease. Will attempt to use NIV overnight. Patient will be given additional diuretics to help with pleural effusion. 2. Recent prolonged hospitalization with empyema leading to tracheostomy and PEG Continue supportive measures as noted above. Speech therapy following as modified barium swallow revealed evidence of aspiration. Continue nutritional support via PEG tube. 3. History of COPD/paroxysmal atrial fibrillation/malnutrition/history of alcohol and tobacco dependency Complicates care, management, recovery and prognosis. Continue supportive measures as noted above. Physical therapy to work with the patient. This note was generated with [employer] dictation software. It may contain incorrect words, spelling, and punctuation that were not noted in checking the note before signing. Subjective Subjective Patient did okay overnight. Patient unfortunately was not placed on NIV therapy. Patient was on trach mask and states he felt no different. Patient continued to have increased oxygen requirements overnight. Patient is not reporting any chest pain. Objective Data Objective Data Vital Signs: Vital Signs Temp Pulse Resp BP Pulse Ox 36.9 C 77 18 108/62 97 08/30/21 09:00 08/30/21 09:00 08/30/21 09:00 08/30/21 09:00 08/30/21 09:00 Oxygen Flow Rate (L/min) [4] 15 Oxygen Flow Rate (L/min) [3] 15 Oxygen Flow Rate (L/min) [2] 15 Oxygen Flow Rate (L/min) [1 ( 15 Initial Baseline)] Oxygen Flow Rate (L/min) [3] 8 Oxygen Flow Rate (L/min) [2] 8 Oxygen Flow Rate (L/min) [1 ( 8 Initial Baseline)] Oxygen Flow Rate (L/min) 14 Oxygen Delivery Method [4] High Flow Oxygen Delivery Method [3] High Flow Oxygen Delivery Method [2] High Flow Oxygen Delivery Method [1 ( High Flow Initial Baseline)] Oxygen Delivery Method [3] Nasal Cannula Oxygen Delivery Method [2] Nasal Cannula Oxygen Delivery Method [1 ( Nasal Cannula Initial Baseline)] Oxygen Delivery Method Trach Collar Weight: 46 kg Body Mass Index (BMI) 17.6 Intake & Output: Intake and Output for Last 24 Hours 08/28/21 08/29/21 08/30/21 23:59 23:59 23:59 Intake Total 1649 / 1649 1345 / 1345 Output Total 900 / 1300 700 / 850 150 / 150 Balance 749 / 349 645 / 495 -150 / -150 Medical Nutrition Assessment Dietitian: Malnutrition Criteria Met Start: 08/14/21 10:16 Freq: Status: Active Protocol: Document 08/26/21 14:00 (Rec: 08/26/21 14:00 [id number]) Nutrition Malnutrition Evidence of Malnutrition Exists Yes Malnutrition (severe): Chronic Evidenced By Suboptimal Energy Intake ( Severe),Weight Loss (Severe), Physical Changes (Severe) Clinical Problem Chronic Disease or Condition Related Malnutrition Etiology severe, chronic malnutrition r /t inadequate energy intake d/ t swallowing difficulty, increased energy needs d/t chronic resp. failure Signs/Symptoms as evidenced by estimated PO intake meeting <75% of estimated energy needs >3 months; obvious signs of severe muscle/fat wasting in the face, orbital and temporal regions per physical exam; BMI 15.3; wt loss of 7.4kg/14% <2 weeks Status Active Problem Recommendation Dietitian Recommendations/Changes 1) Will increase Jevity 1.5 via PEG to 50mL/hour w/ 150mL H2O flush every 4 hours to provide 1800 calories, 76 g protein, and 1812mL fluid/day. Will monitor fluid status and labs and adjust flushes as appropriate. 2) Daily wts. Recommend close monitoring of electrolytes given risk for refeeding syndrome. Lab / Micro Data Result Diagrams: 08/28/21 05:25 08/30/21 06:44 Labs: Laboratory Results - last 24 hr 08/30/21 06:44: Sodium 137, Potassium 5.1, Chloride 101, Carbon Dioxide 34.0 H, Anion Gap 2 L, BUN 31 H, Creatinine 0.79, Estim Creat Clear Calc 45.36, Est GFR (MDRD) Af Amer 125, Est GFR (MDRD) Non-Af 104, BUN/Creatinine Ratio 39.4 H, Glucose 112 H, Calcium 9.0 Micro: Microbiology 08/13/21 10:45 Stool Stool Occult Blood (LU) - Final 08/14/21 Unknown Fluid - Thoracentesis Fluid Gram Stain - Final 08/14/21 Unknown Fluid - Thoracentesis Fluid Body Fluid Culture - Final No growth aerobically. 08/14/21 Unknown Fluid - Thoracentesis Fluid Anaerobic Culture - Final No growth in 5 days. 08/14/21 01:10 Blood Culture (Wb) - Left Hand Blood Culture - Final No growth in 5 days. 08/14/21 01:02 Blood Culture (Wb) - Anticubital Right Blood Culture - Final No growth in 5 days. 08/13/21 21:00 Urine, Clean Catch Legionella Antigen - Final 08/13/21 21:00 Urine, Clean Catch Streptococcus pneumoniae Antigen (M - Final 08/13/21 18:30 Sputum, Induced/Lukens Gram Stain - Final 08/13/21 18:30 Sputum, Induced/Lukens Respiratory Culture - Final Klebsiella pneumoniae sp pneum Gram positive joann 08/13/21 17:51 Mucosa - Nose Influenza Types A,B Direct FA (LU) - Final Physical Exam Const alert and no apparent distress General Appearance: cooperative Nutritional Appearance: thin HEENT normocephalic and head/scalp atraumatic Eyes PERRL and EOMs intact bilaterally Neck supple Neck Narrative: Tracheostomy site is C/D/I. General: trachea midline Chest Chest: abnormal inspection of the chest increased A-P diameter Resp Resp Narrative: Dullness to percussion at the left base Auscultation: diminished lung sounds; Negative for rales, rhonchi or wheezes Cardio regular rate and regular rhythm GI normal to inspection, nondistended, normoactive bowel sounds Inspection: GI tube present Extremity no clubbing, cyanosis or edema Skin no rashes or lesions noted Neuro CN's II-XII intact bilaterally and no focal motor deficits Psych Mood & Affect: flat affect Charges/Coding Visit Charges Inpatient E&M: 77271 Subs Hosp L3
--- NOTE | 2021-08-30 14:00 | CASEMGMT ---
This RN CM to room as pt is still refusing/not tolerating avaps via trach. This RN CM informed pt that he is hindering his road to recovery by refusing different treatments. Pt gets angry with hearing this and tries to kick this RN CM out of room, which he has done previously with other providers when pt gets told things he doesn't want to hear. This RN CM stayed at bedside and tried to talk with pt regarding the fact that we are trying to help him get better. Pt states 'It's all or nothing with you people!' Advised pt that he is not going to get better if he doesn't comply with the AVAPS as his body can't recover at night and he is thus requiring increased oxygen throughout the day. Pt is aware that he cannot return to SNF with that much oxygen and pt states 'There are a lot of people who are on a lot more oxygen than me.' Pt is currently on 12L nc and 50% trach collar and pt informed of this at this time. This RN CM did bring up Hospice with pt and asked if he would at least let them come talk to him d/t refusal of medical care. Pt refuses to answer this RN CM and states 'I am going to sleep now, LEAVE! Dr. Ray and RN updated on all, voice understanding. Dr. Ray did also go back into room after this RN CM to talk with pt/mother. Gian RN WILL
--- NOTE | 2021-08-30 14:04 | CPS ---
patient will not tolerate the trach cuff being inflated. the bipap is also not working correctly, with the cuff deflated or inflated. Low tidal volumns, patient cannot trigger. consulted physician made aware.
--- NOTE | 2021-08-30 19:13 | PN.HOSP_ITS ---
Subjective Subjective Patient was seen and examined today, it appears that the AVAPS was not used last night through his trach, a trial was attempted today but the patient ask it to be removed approximately a minute after it had been put on. I went back in and talk with the patient concerning this and told him that we have reached a point where we cannot offer him any beneficial care due to the fact that he refuses to cooperate with medical care. He stated he would allow suctioning and he would try the AVAPS through his trach 1 more time, and the nurses were able to suction him and got a large amount of mucus out, they applied AVAPS only to find that it was taken off a short period of time after that. The patient's mother arrived for visitation, I went over with her that the patient was refusing to cooperate with medical care and that I had nothing to offer him, she understood this but did not want to make any decisions for the patient as she felt the patient was able to make his own decisions. Case management went and saw the patient today and brought up hospice, patient refused to talk about it and asked the nurse outreach case manager to leave. It appears the palliative care saw the patient earlier in the week and the patient asked that they not return for additional visits. I feel that at this time we are at a standstill taking care of the patient, he states he wants to get better. He will not cooperate with measures that will improve his medical status. Objective Data Objective Data Vital Signs: Vital Signs Temp Pulse Resp BP Pulse Ox 98.1 F 84 20 H 101/57 L 94 08/30/21 13:53 08/30/21 15:00 08/30/21 13:53 08/30/21 13:53 08/30/21 13:53 Oxygen Flow Rate (L/min) [4] 15 Oxygen Flow Rate (L/min) [3] 15 Oxygen Flow Rate (L/min) [2] 15 Oxygen Flow Rate (L/min) [1 ( 15 Initial Baseline)] Oxygen Flow Rate (L/min) [3] 8 Oxygen Flow Rate (L/min) [2] 8 Oxygen Flow Rate (L/min) [1 ( 8 Initial Baseline)] Oxygen Flow Rate (L/min) 14 Oxygen Delivery Method [4] High Flow Oxygen Delivery Method [3] High Flow Oxygen Delivery Method [2] High Flow Oxygen Delivery Method [1 ( High Flow Initial Baseline)] Oxygen Delivery Method [3] Nasal Cannula Oxygen Delivery Method [2] Nasal Cannula Oxygen Delivery Method [1 ( Nasal Cannula Initial Baseline)] Oxygen Delivery Method Trach Collar Weight: 46 kg Body Mass Index (BMI) 17.6 Intake & Output: Intake and Output for Last 24 Hours 08/28/21 08/29/21 08/30/21 23:59 23:59 23:59 Intake Total 1649 / 1649 1345 / 1345 252 / 252 Output Total 900 / 1300 700 / 850 1275 / 1275 Balance 749 / 349 645 / 495 -1023 / -1023 Medical Nutrition Assessment Dietitian: Malnutrition Criteria Met Start: 08/14/21 10:16 Freq: Status: Active Protocol: Document 08/26/21 14:00 (Rec: 08/26/21 14:00 [id number]) Nutrition Malnutrition Evidence of Malnutrition Exists Yes Malnutrition (severe): Chronic Evidenced By Suboptimal Energy Intake ( Severe),Weight Loss (Severe), Physical Changes (Severe) Clinical Problem Chronic Disease or Condition Related Malnutrition Etiology severe, chronic malnutrition r /t inadequate energy intake d/ t swallowing difficulty, increased energy needs d/t chronic resp. failure Signs/Symptoms as evidenced by estimated PO intake meeting <75% of estimated energy needs >3 months; obvious signs of severe muscle/fat wasting in the face, orbital and temporal regions per physical exam; BMI 15.3; wt loss of 7.4kg/14% <2 weeks Status Active Problem Recommendation Dietitian Recommendations/Changes 1) Will increase Jevity 1.5 via PEG to 50mL/hour w/ 150mL H2O flush every 4 hours to provide 1800 calories, 76 g protein, and 1812mL fluid/day. Will monitor fluid status and labs and adjust flushes as appropriate. 2) Daily wts. Recommend close monitoring of electrolytes given risk for refeeding syndrome. Lab / Micro Data Result Diagrams: 08/28/21 05:25 08/30/21 06:44 Labs: Laboratory Results - last 24 hr 08/30/21 06:44: Sodium 137, Potassium 5.1, Chloride 101, Carbon Dioxide 34.0 H, Anion Gap 2 L, BUN 31 H, Creatinine 0.79, Estim Creat Clear Calc 45.36, Est GFR (MDRD) Af Amer 125, Est GFR (MDRD) Non-Af 104, BUN/Creatinine Ratio 39.4 H, Glucose 112 H, Calcium 9.0 Micro: Microbiology 08/13/21 10:45 Stool Stool Occult Blood (LU) - Final 08/14/21 Unknown Fluid - Thoracentesis Fluid Gram Stain - Final 08/14/21 Unknown Fluid - Thoracentesis Fluid Body Fluid Culture - Final No growth aerobically. 08/14/21 Unknown Fluid - Thoracentesis Fluid Anaerobic Culture - Final No growth in 5 days. 08/14/21 01:10 Blood Culture (Wb) - Left Hand Blood Culture - Final No growth in 5 days. 08/14/21 01:02 Blood Culture (Wb) - Anticubital Right Blood Culture - Final No growth in 5 days. 08/13/21 21:00 Urine, Clean Catch Legionella Antigen - Final 08/13/21 21:00 Urine, Clean Catch Streptococcus pneumoniae Antigen (M - Final 08/13/21 18:30 Sputum, Induced/Lukens Gram Stain - Final 08/13/21 18:30 Sputum, Induced/Lukens Respiratory Culture - Final Klebsiella pneumoniae sp pneum Gram positive joann 08/13/21 17:51 Mucosa - Nose Influenza Types A,B Direct FA (LU) - Final Physical Exam Narrative alert, oriented x3 and no apparent distress Constitutional Narrative: Patient appears frail and unwell General Appearance: cooperative, well kempt and well developed Orientation / Consciousness: awake, oriented to person, oriented to place and oriented to time Nutritional Appearance: cachectic HEENT normocephalic, head/scalp atraumatic and moist oral mucous membranes Head and Scalp: normocephalic Eyes PERRL, EOMs intact bilaterally and conjunctivae normal Neck nuchal rigidity, supple, no JVD, thyroid normal and no carotid bruits General: trachea midline Resp normal respiratory effort, no retractions and no use of accessory muscles Resp Narrative: Decreased breath sounds are noted over the left lower lung field Auscultation: Negative for rales, rhonchi or wheezes Cardio regular rate, regular rhythm, S1 normal heart sound, S2 normal heart sound, no murmurs, no rub and no gallops GI normal to inspection, nondistended, normoactive bowel sounds, soft to palpation, non-tender and non-distended GI Narrative: PEG tube is in place Extremity no clubbing, cyanosis or edema Skin no rashes or lesions noted General Skin Exam: no breakdown Neuro oriented x3, CN's II-XII intact bilaterally, no focal motor deficits and no sensory deficits noted Sensorium / Orientation: awake and alert Speech: speech normal Psych Psych Narrative: Patient has flat affect, he appears appropriate Assessment & Plan Assessment/Plan (1) Debility: (2) Sepsis with acute hypoxic respiratory failure: PLAN: 1. Acute combined on chronic hypoxic respiratory failure secondary to Klebsiella pneumonia and left pleural effusion-pulmonary medicine is participating in the patient's care, continue bronchodilators, patient has currently finished a course of antibiotics, again patient is refusing to cooperate with medical care, he is refusing to wear AVAPS through his trach or wear a BiPAP mask. Patient has rhonchorous breath sounds, he has not allowed nursing to consistently suction him. #2 severe protein and caloric malnutrition-continue PEG tube feedings per nutritional services, nutritional services is following #3 oropharyngeal dysphagia-patient is n.p.o. at this time, continue PEG tube feedings, speech therapy is working with the patient #4 severe debility-patient will need continued rehab services in a prison facility at the time of discharge, due to his oxygen requirement at this time, patient is not appropriate to be discharged to prison facility. #5 left pleural effusion-according to pulmonary medicine, this is improved with use of diuretics #6 chronic obstructive pulmonary disease-patient will continue on aerosol treatments #7 Central sleep apnea-patient will need to comply with AVAPS through his trach which I feel is unlikely at this time Prognosis is poor at this time due to patient's lack of cooperation with his medical care. Charges/Coding Visit Charges Inpatient E&M: 34648 Subs Hosp L2
[2021-08-30] MEDS: Mirtazapine 15 MG Tablet 7.5 MG PO (19:54)
--- NOTE | 2021-08-30 20:24 | CPS ---
Walked in pt room and found pt on AVAPS through his trach with the cuff inflated. O2 sats are high AVAPS via trach allows for oral care. Pt is resistant but was firmly informed it is necessary and RT replaced gauze around trach tube. RN aware.
[2021-08-31] VITALS (18 sets, daily range): BP systolic 104–116; BP diastolic 63–73; PULSE 82–94; RESP 14–22; TEMP 36.5–36.8; O2SAT 75–100
[2021-08-31] MEDS: Jevity 1.5 1,000 ML 50 ML GT (06:30)
[2021-08-31 06:32] LABS: Absolute Lymphocyte Count 0.99 X10^3/uL (0.83-4.51); Absolute Neutrophil Count 7.5 X10^3/uL (2.0-7.7); Basophil# 0.04 X10^3/uL; Basophil% 0.4 % (0-1); Eosinophils% 4.1 % (0-5); Hematocrit 25.8 % (40-54); Hemoglobin 8.6 g/dL (13.0-16.5); Lymphocyte # 0.99 X10^3/ul (0.83-4.51); Lymphocyte % 10.2 % (19-41); Mean Corp Hgb Conc 33.3 g/dL (32-36); Mean Corpuscular Hgb 32.1 pg (27.0-32.0); Mean Corpuscular Volume 96.3 fL (80-94); Mean Platelet Vol. 10.4 fl (6.2-12.0); Monocyte# 0.71 X10^3/uL; Monocyte% 7.3 % (0-10); NRBC Flagged by Analyzer 0 % (0-5); Neutrophil # 7.46 X10^3/uL (2.7-7.7); Neutrophil % 76.8 % (47-70); Platelet Count 320 K/mm3 (150-450); RBC Distribution Width SD 52.3 fl (35.1-43.9); Red Blood Count 2.68 M/mm3 (4.6-6.2); White Blood Count 9.7 K/mm3 (4.4-11.0)
[2021-08-31 06:56] LABS: Anion Gap 3 (5-15); BUN 37 mg/dL (7-18); BUN/Creat Ratio 41.8 RATIO (10-20); Calcium,Total 8.9 mg/dL (8.5-10.1); Chloride 98 mmol/L (98-107); Creatinine, Serum 0.89 mg/dL (0.70-1.30); EST Glomerular Filtration Rate 90 mL/min (>60); Est Glom Filt Rate - Afr Amer 109 mL/min (>60); Estimated Creatinine Clearance 51.41 ml/min; Glucose 113 mg/dL (74-106); Magnesium 2.8 mg/dL (1.6-2.6); Phosphorus 4.3 mg/dL (2.5-4.9); Potassium 4.6 mmol/L (3.5-5.1); Sodium Level 136 mmol/L (136-145)
[2021-08-31] MEDS: Ipratropium/Albuterol Sulfate 3 ML AMPUL.NEB INHALATION ×3 (07:49→19:48)
--- NOTE | 2021-08-31 09:16 | RAD_ITS ---
STUDY: X-RAY CHEST REASON FOR EXAM: Male, 70 years old. Pleural effusion. TECHNIQUE: Single AP portable view of the chest. COMPARISON: Comparison is made with prior examination dated 08/28/2021. FINDINGS: EKG electrodes are seen. An endotracheal tube is in situ with the tip at 7.9 cm proximal to the nuno. Hyperinflation. Small residual left pleural effusion with left basilar atelectasis and/or infiltration. This has improved. Stable blunting of the right costophrenic angle. Normal size heart. Normal mediastinum and genaro. Normal visualized pulmonary arteries. There is atherosclerotic calcification of the aortic arch with tortuosity. There are diffuse degenerative changes of the visualized thoracic spine. Normal visualized ribs, clavicles, and shoulders. There is no demonstrated abnormality of the visualized soft tissue structures of the upper abdomen. RAD/Chest 1 View (Portable) IMPRESSION: Small residual left pleural effusion and left basilar infiltration and/or atelectasis. Stable blunting of the right costophrenic angle. Electronically Signed: Juan Crum MD at 12:44 EST ,
--- NOTE | 2021-08-31 09:17 | PCM.PN.INT ---
Assessment & Plan Assessment/Plan (1) Pleural effusion, right: PLAN: RECOMMENDATIONS: 1. Continue AVAPS therapy trach with naps and nightly. 2. Wean supplemental oxygen to maintain saturations at or above 90%. 3. Continue nutritional support via PEG tube. 4. Continue aggressive bronchopulmonary hygiene. 5. Continue scheduled bronchodilators. 6. Repeat chest x-ray. Challenge with diuretics again 7. Agree that hospice would be appropriate, given the patient's ongoing refusal of medical therapy. IMPRESSIONS: 1. Acute combined on chronic hypoxemic respiratory failure secondary to Klebsiella pneumonia and pleural effusion The patient has a baseline medical history including COPD and chronic hypoxemic respiratory failure. Plan to continue supportive measures including aggressive bronchopulmonary hygiene and supplemental oxygen for saturations greater than 90%. The patient has completed a treatment course of antimicrobials. The patient has been largely noncompliant with the use of nocturnal Pap therapy. I would strongly urge that AVAPS therapy be utilized with naps and nightly. Patient continues to have significant worsening of oxygenation overnight. This would be suggestive of possible central sleep apnea. Patient does have relatively advanced lung disease. Patient able to tolerate NIV overnight. Patient will be given additional diuretics to help with pleural effusion. Chest x-ray to assess for response to diuretics 2. Recent prolonged hospitalization with empyema leading to tracheostomy and PEG Continue supportive measures as noted above. Speech therapy following as modified barium swallow revealed evidence of aspiration. Continue nutritional support via PEG tube. 3. History of COPD/paroxysmal atrial fibrillation/malnutrition/history of alcohol and tobacco dependency Complicates care, management, recovery and prognosis. Continue supportive measures as noted above. Physical therapy to work with the patient. This note was generated with [employer] dictation software. It may contain incorrect words, spelling, and punctuation that were not noted in checking the note before signing. Subjective Subjective Patient did okay overnight. Patient was able to tolerate AVAPS throughout the evening. Patient was not excited about the potential continuing such therapy. However, patient did voice that he understood the logic. Patient does report shortness of breath at baseline. Objective Data Objective Data Vital Signs: Vital Signs Temp Pulse Resp BP Pulse Ox 36.6 C 87 16 104/67 96 08/31/21 04:00 08/31/21 07:24 08/31/21 04:00 08/31/21 04:00 08/31/21 04:00 Oxygen Flow Rate (L/min) [4] 15 Oxygen Flow Rate (L/min) [3] 15 Oxygen Flow Rate (L/min) [2] 15 Oxygen Flow Rate (L/min) [1 ( 15 Initial Baseline)] Oxygen Flow Rate (L/min) [3] 8 Oxygen Flow Rate (L/min) [2] 8 Oxygen Flow Rate (L/min) [1 ( 8 Initial Baseline)] Oxygen Flow Rate (L/min) 14 Oxygen Delivery Method [4] High Flow Oxygen Delivery Method [3] High Flow Oxygen Delivery Method [2] High Flow Oxygen Delivery Method [1 ( High Flow Initial Baseline)] Oxygen Delivery Method [3] Nasal Cannula Oxygen Delivery Method [2] Nasal Cannula Oxygen Delivery Method [1 ( Nasal Cannula Initial Baseline)] Oxygen Delivery Method Trach Collar Weight: 46.4 kg Body Mass Index (BMI) 17.6 Intake & Output: Intake and Output for Last 24 Hours 08/29/21 08/30/21/10/19 23:59 23:59 23:59 Intake Total 1345 / 1345 352 / 1102 1350 / 1350 Output Total 700 / 850 1275 / 1275 400 / 400 Balance 645 / 495 -923 / -173 950 / 950 Medical Nutrition Assessment Dietitian: Malnutrition Criteria Met Start: 08/14/21 10:16 Freq: Status: Active Protocol: Document 08/26/21 14:00 (Rec: 08/26/21 14:00 [id number]) Nutrition Malnutrition Evidence of Malnutrition Exists Yes Malnutrition (severe): Chronic Evidenced By Suboptimal Energy Intake ( Severe),Weight Loss (Severe), Physical Changes (Severe) Clinical Problem Chronic Disease or Condition Related Malnutrition Etiology severe, chronic malnutrition r /t inadequate energy intake d/ t swallowing difficulty, increased energy needs d/t chronic resp. failure Signs/Symptoms as evidenced by estimated PO intake meeting <75% of estimated energy needs >3 months; obvious signs of severe muscle/fat wasting in the face, orbital and temporal regions per physical exam; BMI 15.3; wt loss of 7.4kg/14% <2 weeks Status Active Problem Recommendation Dietitian Recommendations/Changes 1) Will increase Jevity 1.5 via PEG to 50mL/hour w/ 150mL H2O flush every 4 hours to provide 1800 calories, 76 g protein, and 1812mL fluid/day. Will monitor fluid status and labs and adjust flushes as appropriate. 2) Daily wts. Recommend close monitoring of electrolytes given risk for refeeding syndrome. Lab / Micro Data Result Diagrams: 08/31/21 05:45 08/31/21 05:45 Labs: Laboratory Results - last 24 hr 08/31/21 05:45: WBC 9.7, RBC 2.68 L, Hgb 8.6 L, Hct 25.8 L, MCV 96.3 H, MCH 32.1 H, MCHC 33.3, RDW Std Deviation 52.3 H, RDW Coeff of Vita 15.0 H, Plt Count 320, MPV 10.4, Immature Gran % (Auto) 1.200 H, Neut % (Auto) 76.8 H, Lymph % (Auto) 10.2 L, [place] % (Auto) 7.3, Eos % (Auto) 4.1, Baso % (Auto) 0.4, Absolute Neuts (auto) 7.5, Absolute Lymphs (auto) 0.99, Nucleated RBC % 0 08/31/21 05:45: Sodium 136, Potassium 4.6, Chloride 98, Carbon Dioxide 35.0 H, Anion Gap 3 L, BUN 37 H, Creatinine 0.89, Estim Creat Clear Calc 51.41, Est GFR (MDRD) Af Amer 109, Est GFR (MDRD) Non-Af 90, BUN/Creatinine Ratio 41.8 H, Glucose 113 H, Calcium 8.9, Phosphorus 4.3, Magnesium 2.8 H Micro: Microbiology 08/13/21 10:45 Stool Stool Occult Blood (LU) - Final 08/14/21 Unknown Fluid - Thoracentesis Fluid Gram Stain - Final 08/14/21 Unknown Fluid - Thoracentesis Fluid Body Fluid Culture - Final No growth aerobically. 08/14/21 Unknown Fluid - Thoracentesis Fluid Anaerobic Culture - Final No growth in 5 days. 08/14/21 01:10 Blood Culture (Wb) - Left Hand Blood Culture - Final No growth in 5 days. 08/14/21 01:02 Blood Culture (Wb) - Anticubital Right Blood Culture - Final No growth in 5 days. 08/13/21 21:00 Urine, Clean Catch Legionella Antigen - Final 08/13/21 21:00 Urine, Clean Catch Streptococcus pneumoniae Antigen (M - Final 08/13/21 18:30 Sputum, Induced/Lukens Gram Stain - Final 08/13/21 18:30 Sputum, Induced/Lukens Respiratory Culture - Final Klebsiella pneumoniae sp pneum Gram positive joann 08/13/21 17:51 Mucosa - Nose Influenza Types A,B Direct FA (LU) - Final Physical Exam Const alert and no apparent distress General Appearance: cooperative Nutritional Appearance: thin HEENT normocephalic and head/scalp atraumatic Eyes PERRL and EOMs intact bilaterally Neck supple Neck Narrative: Tracheostomy site is C/D/I. General: trachea midline Chest Chest: abnormal inspection of the chest increased A-P diameter Resp Resp Narrative: Dullness to percussion at the left base Auscultation: diminished lung sounds; Negative for rales, rhonchi or wheezes Cardio regular rate and regular rhythm GI normal to inspection, nondistended, normoactive bowel sounds Inspection: GI tube present Extremity no clubbing, cyanosis or edema Skin no rashes or lesions noted Neuro CN's II-XII intact bilaterally and no focal motor deficits Psych Mood & Affect: flat affect Charges/Coding Visit Charges Inpatient E&M: 36420 Subs Hosp L3
[2021-08-31] MEDS: Sertraline 100 MG Tablet PO (10:20)
[2021-08-31] MEDS: Potassium Chloride Oral Soln 20 MEQ/15 ML UDC 40 MEQ GT (10:20)
[2021-08-31] MEDS: Enoxaparin 30 MG/0.3 ML Syringe SC (10:20)
[2021-08-31] MEDS: Famotidine 20 MG Tablet PO (10:20)
[2021-08-31] MEDS: Furosemide 40 MG/4 ML Vial IV (10:27)
--- NOTE | 2021-08-31 13:43 | CASEMGMT ---
This RN WILL spoke with Brianna from [facility] regarding pt and he states he can come try to speak with pt on 09/03/21. Dr. Ray updated, voices understanding. Gian RAUSCH CM
--- NOTE | 2021-08-31 13:46 | CASEMGMT ---
Addendum entered by Susan Wilson 08/31/21 15:48: Therapy notes faxed to [facility]. Updated clinicals to be faxed on Friday per Happy at [facility] request. Happy states she is unsure if they will take him d/t non-compliance with medical treatment. CM to follow. Gian RAUSCH CM Original Note: Dr. Arizmendi would like LTACH referral faxed for pt. Referral faxed to [facility] as they are the only in-network LT[facility] per [employer] medicare website at this time. CM to follow. Gian RAUSCH CM
--- NOTE | 2021-08-31 14:04 | CASEMGMT ---
PILI called Leatha in admissions at [facility]. PILI let her know patient did tolerate the non-invasive vent on his trach last night. PILI also let her know his O2 sats are still changing. He still at times requires more than 8L. PILI will fax updates. She thanked PILI for the update. Rachel Rubalcava SUSTAINABILITY COORDINATOR LESLIE
[2021-08-31] MEDS: Sertraline 50 MG Tablet PO (15:23)
--- NOTE | 2021-08-31 17:10 | PCM.PN.HOSP ---
Subjective Subjective Patient seen and examined today, he appears lethargic today.He tolerated AVAPS last nite. Objective Data Objective Data Vital Signs: Vital Signs Temp Pulse Resp BP Pulse Ox 97.7 F L 86 20 H 105/63 90 08/31/21 15:00 08/31/21 15:00 08/31/21 15:00 08/31/21 15:00 08/31/21 15:32 Oxygen Flow Rate (L/min) [4] 15 Oxygen Flow Rate (L/min) [3] 15 Oxygen Flow Rate (L/min) [2] 15 Oxygen Flow Rate (L/min) [1 ( 15 Initial Baseline)] Oxygen Flow Rate (L/min) [3] 8 Oxygen Flow Rate (L/min) [2] 8 Oxygen Flow Rate (L/min) [1 ( 8 Initial Baseline)] Oxygen Flow Rate (L/min) 90 Oxygen Delivery Method [4] High Flow Oxygen Delivery Method [3] High Flow Oxygen Delivery Method [2] High Flow Oxygen Delivery Method [1 ( High Flow Initial Baseline)] Oxygen Delivery Method [3] Nasal Cannula Oxygen Delivery Method [2] Nasal Cannula Oxygen Delivery Method [1 ( Nasal Cannula Initial Baseline)] Oxygen Delivery Method Non-Rebreather Weight: 46.4 kg Body Mass Index (BMI) 17.6 Intake & Output: Intake and Output for Last 24 Hours 08/29/21 08/30/21 08/31/21 23:59 23:59 23:59 Intake Total 1345 / 1345 352 / 1102 1999 / 1999 Output Total 700 / 850 1275 / 1275 550 / 550 Balance 645 / 495 -923 / -173 1450 / 1450 Medical Nutrition Assessment Dietitian: Malnutrition Criteria Met Start: 08/14/21 10:16 Freq: Status: Active Protocol: Document 08/26/21 14:00 (Rec: 08/26/21 14:00 [id number]) Nutrition Malnutrition Evidence of Malnutrition Exists Yes Malnutrition (severe): Chronic Evidenced By Suboptimal Energy Intake ( Severe),Weight Loss (Severe), Physical Changes (Severe) Clinical Problem Chronic Disease or Condition Related Malnutrition Etiology severe, chronic malnutrition r /t inadequate energy intake d/ t swallowing difficulty, increased energy needs d/t chronic resp. failure Signs/Symptoms as evidenced by estimated PO intake meeting <75% of estimated energy needs >3 months; obvious signs of severe muscle/fat wasting in the face, orbital and temporal regions per physical exam; BMI 15.3; wt loss of 7.4kg/14% <2 weeks Status Active Problem Recommendation Dietitian Recommendations/Changes 1) Will increase Jevity 1.5 via PEG to 50mL/hour w/ 150mL H2O flush every 4 hours to provide 1800 calories, 76 g protein, and 1812mL fluid/day. Will monitor fluid status and labs and adjust flushes as appropriate. 2) Daily wts. Recommend close monitoring of electrolytes given risk for refeeding syndrome. Lab / Micro Data Result Diagrams: 08/31/21 05:45 08/31/21 05:45 Labs: Laboratory Results - last 24 hr 08/31/21 05:45: WBC 9.7, RBC 2.68 L, Hgb 8.6 L, Hct 25.8 L, MCV 96.3 H, MCH 32.1 H, MCHC 33.3, RDW Std Deviation 52.3 H, RDW Coeff of Vita 15.0 H, Plt Count 320, MPV 10.4, Immature Gran % (Auto) 1.200 H, Neut % (Auto) 76.8 H, Lymph % (Auto) 10.2 L, [place] % (Auto) 7.3, Eos % (Auto) 4.1, Baso % (Auto) 0.4, Absolute Neuts (auto) 7.5, Absolute Lymphs (auto) 0.99, Nucleated RBC % 0 08/31/21 05:45: Sodium 136, Potassium 4.6, Chloride 98, Carbon Dioxide 35.0 H, Anion Gap 3 L, BUN 37 H, Creatinine 0.89, Estim Creat Clear Calc 51.41, Est GFR (MDRD) Af Amer 109, Est GFR (MDRD) Non-Af 90, BUN/Creatinine Ratio 41.8 H, Glucose 113 H, Calcium 8.9, Phosphorus 4.3, Magnesium 2.8 H Micro: Microbiology 08/13/21 10:45 Stool Stool Occult Blood (LU) - Final 08/14/21 Unknown Fluid - Thoracentesis Fluid Gram Stain - Final 08/14/21 Unknown Fluid - Thoracentesis Fluid Body Fluid Culture - Final No growth aerobically. 08/14/21 Unknown Fluid - Thoracentesis Fluid Anaerobic Culture - Final No growth in 5 days. 08/14/21 01:10 Blood Culture (Wb) - Left Hand Blood Culture - Final No growth in 5 days. 08/14/21 01:02 Blood Culture (Wb) - Anticubital Right Blood Culture - Final No growth in 5 days. 08/13/21 21:00 Urine, Clean Catch Legionella Antigen - Final 08/13/21 21:00 Urine, Clean Catch Streptococcus pneumoniae Antigen (M - Final 08/13/21 18:30 Sputum, Induced/Lukens Gram Stain - Final 08/13/21 18:30 Sputum, Induced/Lukens Respiratory Culture - Final Klebsiella pneumoniae sp pneum Gram positive joann 08/13/21 17:51 Mucosa - Nose Influenza Types A,B Direct FA (LU) - Final Radiography Diagnostic Testing: Radiology Impression Chest X-Ray 08/31/21 09:16 IMPRESSION: Small residual left pleural effusion and left basilar infiltration and/or atelectasis. Stable blunting of the right costophrenic angle. Electronically Signed: Juan Crum MD at 12:44 EST , Physical Exam Narrative lethargic, and no apparent distress Constitutional Narrative: Patient appears frail and unwell General Appearance: cooperative, well kempt and well developed Orientation / Consciousness: lethargic Nutritional Appearance: cachectic HEENT normocephalic, head/scalp atraumatic and moist oral mucous membranes Head and Scalp: normocephalic Eyes PERRL, EOMs intact bilaterally and conjunctivae normal Neck nuchal rigidity, supple, no JVD, thyroid normal and no carotid bruits General: trachea midline Resp normal respiratory effort, no retractions and no use of accessory muscles Resp Narrative: Decreased breath sounds are noted over the left lower lung field Auscultation: Negative for rales, rhonchi or wheezes Cardio regular rate, regular rhythm, S1 normal heart sound, S2 normal heart sound, no murmurs, no rub and no gallops GI normal to inspection, nondistended, normoactive bowel sounds, soft to palpation, non-tender and non-distended GI Narrative: PEG tube is in place Extremity no clubbing, cyanosis or edema Skin no rashes or lesions noted General Skin Exam: no breakdown Neuro oriented x3, CN's II-XII intact bilaterally, no focal motor deficits and no sensory deficits noted Sensorium / Orientation: awake and alert Speech: speech normal Psych Assessment & Plan Assessment/Plan (1) Debility: (2) Sepsis with acute hypoxic respiratory failure: PLAN: 1. Acute combined on chronic hypoxic respiratory failure secondary to Klebsiella pneumonia and left pleural effusion-pulmonary medicine is participating in the patient's care, continue bronchodilators, patient has currently finished a course of antibiotics, again patient is refusing to cooperate with medical care at times, he is refusing to wear AVAPS through his trach or wear a BiPAP mask at times. Patient has rhonchorous breath sounds, he has not allowed nursing to consistently suction him at times. Patient's chest x-ray appears to show improved left pleural effusion and atelectasis., I have asked case management to contact LTAC to see if the patient would qualify to go there. #2 severe protein and caloric malnutrition-continue PEG tube feedings per nutritional services, nutritional services is following #3 oropharyngeal dysphagia-patient is n.p.o. at this time, continue PEG tube feedings, speech therapy is working with the patient #4 severe debility-patient will need continued rehab services in a assisted facility at the time of discharge, due to his oxygen requirement at this time, patient is not appropriate to be discharged to assisted facility. #5 left pleural effusion-according to pulmonary medicine, this is improved with use of diuretics #6 chronic obstructive pulmonary disease-patient will continue on aerosol treatments #7 Central sleep apnea-patient will need to comply with AVAPS through his trach Prognosis is poor at this time due to patient's lack of cooperation with his medical care, patient has severe comorbidities in addition to his COPD. Charges/Coding Visit Charges Inpatient E&M: 25391 Subs Hosp L2
[2021-09-01] VITALS (19 sets, daily range): BP systolic 101–116; BP diastolic 49–70; PULSE 75–93; RESP 14–25; TEMP 36.3–36.6; O2SAT 90–100
--- NOTE | 2021-09-01 03:07 | NURSING ---
pt PEG tube not flushing. Tube feeding paused around midnight. Multiple attempts to unclog tube, but were unsuccessful. notified.
[2021-09-01 07:17] LABS: Anion Gap 3 (5-15); BUN 43 mg/dL (7-18); BUN/Creat Ratio 44.7 RATIO (10-20); Calcium,Total 9.1 mg/dL (8.5-10.1); Chloride 99 mmol/L (98-107); Creatinine, Serum 0.96 mg/dL (0.70-1.30); EST Glomerular Filtration Rate 82 mL/min (>60); Est Glom Filt Rate - Afr Amer 99 mL/min (>60); Estimated Creatinine Clearance 47.87 ml/min; Glucose 95 mg/dL (74-106); Potassium 4.9 mmol/L (3.5-5.1); Sodium Level 137 mmol/L (136-145)
--- NOTE | 2021-09-01 07:41 | PN.CC_ITS ---
Assessment & Plan Assessment/Plan (1) Pleural effusion, right: PLAN: RECOMMENDATIONS: 1. Continue AVAPS therapy trach with naps and nightly. 2. Wean supplemental oxygen to maintain saturations at or above 90%. 3. Continue nutritional support via PEG tube. 4. Continue aggressive bronchopulmonary hygiene. 5. Continue scheduled bronchodilators. 6. Repeat chest x-ray. Challenge with diuretics again 7. Okay to arrange discharge to a respiratory facility IMPRESSIONS: 1. Acute combined on chronic hypoxemic respiratory failure secondary to Klebsiella pneumonia and pleural effusion The patient has a baseline medical history including COPD and chronic hypoxemic respiratory failure. Plan to continue supportive measures including aggressive bronchopulmonary hygiene and supplemental oxygen for saturations greater than 90%. The patient has completed a treatment course of antimicrobials. Patient appears to be responding well to nocturnal NIV therapy. Saturations have consistently improved daily with its use. Chest x-ray showing only mild blunting at the costophrenic angle. Continue with diuresis intermittently as necessary. 2. Recent prolonged hospitalization with empyema leading to tracheostomy and PEG Continue supportive measures as noted above. Speech therapy following as modified barium swallow revealed evidence of aspiration. Continue nutritional support via PEG tube. 3. History of COPD/paroxysmal atrial fibrillation/malnutrition/history of alcohol and tobacco dependency Complicates care, management, recovery and prognosis. Continue supportive measures as noted above. Physical therapy to work with the patient. This note was generated with [employer] dictation software. It may contain incorrect words, spelling, and punctuation that were not noted in checking the note before signing. Subjective Subjective Patient did well overnight per the nurses. Patient was amenable to AVAPS through the trach, but does not like the fact that he cannot talk with his b alloon inflated. Patient has tolerated tube feeds. Nursing reports that he was down to 6 to 8 L/min nasal cannula prior to being placed on ventilator. Objective Data Objective Data Vital Signs: Vital Signs Temp Pulse Resp BP Pulse Ox 36.3 C L 78 14 112/70 99 09/01/21 03:00 09/01/21 03:00 09/01/21 03:00 09/01/21 03:00 09/01/21 04:30 Oxygen Flow Rate (L/min) [4] 15 Oxygen Flow Rate (L/min) [3] 15 Oxygen Flow Rate (L/min) [2] 15 Oxygen Flow Rate (L/min) [1 ( 15 Initial Baseline)] Oxygen Flow Rate (L/min) [3] 8 Oxygen Flow Rate (L/min) [2] 8 Oxygen Flow Rate (L/min) [1 ( 8 Initial Baseline)] Oxygen Flow Rate (L/min) 8 Oxygen Delivery Method [4] High Flow Oxygen Delivery Method [3] High Flow Oxygen Delivery Method [2] High Flow Oxygen Delivery Method [1 ( High Flow Initial Baseline)] Oxygen Delivery Method [3] Nasal Cannula Oxygen Delivery Method [2] Nasal Cannula Oxygen Delivery Method [1 ( Nasal Cannula Initial Baseline)] Oxygen Delivery Method Trach Collar Weight: 46.6 kg Body Mass Index (BMI) 17.6 Intake & Output: Intake and Output for Last 24 Hours 08/30/21 08/31/21 09/01/21 23:59 23:59 23:59 Intake Total 352 / 1102 3728 / 3728 Output Total 1275 / 1275 650 / 650 250 / 250 Balance -923 / -173 3078 / 3078 -250 / -250 Medical Nutrition Assessment Dietitian: Malnutrition Criteria Met Start: 08/14/21 10:16 Freq: Status: Active Protocol: Document 08/26/21 14:00 (Rec: 08/26/21 14:00 [id number]) Nutrition Malnutrition Evidence of Malnutrition Exists Yes Malnutrition (severe): Chronic Evidenced By Suboptimal Energy Intake ( Severe),Weight Loss (Severe), Physical Changes (Severe) Clinical Problem Chronic Disease or Condition Related Malnutrition Etiology severe, chronic malnutrition r /t inadequate energy intake d/ t swallowing difficulty, increased energy needs d/t chronic resp. failure Signs/Symptoms as evidenced by estimated PO intake meeting <75% of estimated energy needs >3 months; obvious signs of severe muscle/fat wasting in the face, orbital and temporal regions per physical exam; BMI 15.3; wt loss of 7.4kg/14% <2 weeks Status Active Problem Recommendation Dietitian Recommendations/Changes 1) Will increase Jevity 1.5 via PEG to 50mL/hour w/ 150mL H2O flush every 4 hours to provide 1800 calories, 76 g protein, and 1812mL fluid/day. Will monitor fluid status and labs and adjust flushes as appropriate. 2) Daily wts. Recommend close monitoring of electrolytes given risk for refeeding syndrome. Lab / Micro Data Result Diagrams: 08/31/21 05:45 09/01/21 06:02 Labs: Laboratory Results - last 24 hr 09/01/21 06:02: Sodium 137, Potassium 4.9, Chloride 99, Carbon Dioxide 35.0 H, Anion Gap 3 L, BUN 43 H, Creatinine 0.96, Estim Creat Clear Calc 47.87, Est GFR (MDRD) Af Amer 99, Est GFR (MDRD) Non-Af 82, BUN/Creatinine Ratio 44.7 H, Glucose 95, Calcium 9.1 Micro: Microbiology 08/13/21 10:45 Stool Stool Occult Blood (UL) - Final 08/14/21 Unknown Fluid - Thoracentesis Fluid Gram Stain - Final 08/14/21 Unknown Fluid - Thoracentesis Fluid Body Fluid Culture - Final No growth aerobically. 08/14/21 Unknown Fluid - Thoracentesis Fluid Anaerobic Culture - Final No growth in 5 days. 08/14/21 01:10 Blood Culture (Wb) - Left Hand Blood Culture - Final No growth in 5 days. 08/14/21 01:02 Blood Culture (Wb) - Anticubital Right Blood Culture - Final No growth in 5 days. 08/13/21 21:00 Urine, Clean Catch Legionella Antigen - Final 08/13/21 21:00 Urine, Clean Catch Streptococcus pneumoniae Antigen (M - Final 08/13/21 18:30 Sputum, Induced/Lukens Gram Stain - Final 08/13/21 18:30 Sputum, Induced/Lukens Respiratory Culture - Final Klebsiella pneumoniae sp pneum Gram positive joann 08/13/21 17:51 Mucosa - Nose Influenza Types A,B Direct FA (LU) - Final Radiography Diagnostic Testing: Radiology Impression Chest X-Ray 08/31/21 09:16 IMPRESSION: Small residual left pleural effusion and left basilar infiltration and/or atelectasis. Stable blunting of the right costophrenic angle. Electronically Signed: Juan Crum MD at 12:44 EST , Physical Exam Const alert and no apparent distress Constitutional Narrative: On ventilation during my evaluation. Interactive and appropriate General Appearance: cooperative Nutritional Appearance: thin HEENT normocephalic and head/scalp atraumatic Eyes PERRL and EOMs intact bilaterally Neck supple Neck Narrative: Tracheostomy site is C/D/I. General: trachea midline Chest Chest: abnormal inspection of the chest increased A-P diameter Resp Resp Narrative: Dullness to percussion at the left base Auscultation: diminished lung sounds; Negative for rales, rhonchi or wheezes Cardio regular rate and regular rhythm GI normal to inspection, nondistended, normoactive bowel sounds Inspection: GI tube present Extremity no clubbing, cyanosis or edema Skin no rashes or lesions noted Neuro CN's II-XII intact bilaterally and no focal motor deficits Psych Mood & Affect: flat affect Charges/Coding Visit Charges Inpatient E&M: 70833 Subs Hosp L2
[2021-09-01] MEDS: Ipratropium/Albuterol Sulfate 3 ML AMPUL.NEB INHALATION ×3 (07:49→19:09)
[2021-09-01] MEDS: Enoxaparin 30 MG/0.3 ML Syringe SC (09:07)
--- NOTE | 2021-09-01 12:18 | CM.ED ---
PILI Note PILI called [facility]. PILI spoke to Chacha and updated her regarding patient and that now he is compliant and allowing staff to suction him and currently on 6L of oxygen. Chacha will reach out to admission staff and call this headline writer back., PILI to follow. Norma LIEBERMAN
[2021-09-01] MEDS: Sertraline 100 MG Tablet 150 MG PO (12:33)
[2021-09-01] MEDS: Potassium Chloride Oral Soln 20 MEQ/15 ML UDC 40 MEQ GT (12:33)
[2021-09-01] MEDS: Famotidine 20 MG Tablet PO ×2 (12:34→22:00)
[2021-09-01] MEDS: Acetaminophen 325 MG Tablet 650 MG PO (12:34)
[2021-09-01] MEDS: busPIRone 15 MG TABLET PO ×2 (12:34→22:00)
[2021-09-01] MEDS: Jevity 1.5 1,000 ML 50 ML GT (12:35)
--- NOTE | 2021-09-01 13:51 | CM.ED ---
PILI note PILI received call back from Chacha. Chacha said that she spoke to Kelly in admission. Patient will need a precert prior to returning to the SNF. Chacha said that Kelly can start the precert today however, it will not be back this weekend. PILI updated RN WILL. Norma LIEBERMAN
--- NOTE | 2021-09-01 17:09 | CASEMGMT ---
PILI faxed updated clinicals including PT/OT and speech to [facility]. Confirmation fax received. Norma LIEBERMAN
--- NOTE | 2021-09-01 18:53 | PCM.PN.HOSP ---
Subjective Subjective Patient was seen and examined today, he is more alert today, he is tolerating AVAPS through his trach during the day for periods of time. Patient's nasal cannula oxygen requirement is at 6 L today, pulmonary medicine states that his respiratory status is improved following compliance with treatment by the patient. Patient denies any fevers or chills at this time. Objective Data Objective Data Vital Signs: Vital Signs Temp Pulse Resp BP Pulse Ox 97.9 F 80 22 H 114/63 100 09/01/21 17:02 09/01/21 17:02 09/01/21 17:02 09/01/21 17:02 09/01/21 17:02 Oxygen Flow Rate (L/min) [4] 15 Oxygen Flow Rate (L/min) [3] 15 Oxygen Flow Rate (L/min) [2] 15 Oxygen Flow Rate (L/min) [1 ( 15 Initial Baseline)] Oxygen Flow Rate (L/min) [3] 8 Oxygen Flow Rate (L/min) [2] 8 Oxygen Flow Rate (L/min) [1 ( 8 Initial Baseline)] Oxygen Flow Rate (L/min) 9 Oxygen Delivery Method [4] High Flow Oxygen Delivery Method [3] High Flow Oxygen Delivery Method [2] High Flow Oxygen Delivery Method [1 ( High Flow Initial Baseline)] Oxygen Delivery Method [3] Nasal Cannula Oxygen Delivery Method [2] Nasal Cannula Oxygen Delivery Method [1 ( Nasal Cannula Initial Baseline)] Oxygen Delivery Method Nasal Cannula Weight: 46.6 kg Body Mass Index (BMI) 17.6 Intake & Output: Intake and Output for Last 24 Hours 08/30/21 08/31/21 09/01/21 23:59 23:59 23:59 Intake Total 352 / 1102 3728 / 3728 544 / 544 Output Total 1275 / 1275 650 / 650 650 / 650 Balance -923 / -173 3078 / 3078 -106 / -106 Medical Nutrition Assessment Dietitian: Malnutrition Criteria Met Start: 08/14/21 10:16 Freq: Status: Active Protocol: Document 08/26/21 14:00 (Rec: 08/26/21 14:00 [id number]) Nutrition Malnutrition Evidence of Malnutrition Exists Yes Malnutrition (severe): Chronic Evidenced By Suboptimal Energy Intake ( Severe),Weight Loss (Severe), Physical Changes (Severe) Clinical Problem Chronic Disease or Condition Related Malnutrition Etiology severe, chronic malnutrition r /t inadequate energy intake d/ t swallowing difficulty, increased energy needs d/t chronic resp. failure Signs/Symptoms as evidenced by estimated PO intake meeting <75% of estimated energy needs >3 months; obvious signs of severe muscle/fat wasting in the face, orbital and temporal regions per physical exam; BMI 15.3; wt loss of 7.4kg/14% <2 weeks Status Active Problem Recommendation Dietitian Recommendations/Changes 1) Will increase Jevity 1.5 via PEG to 50mL/hour w/ 150mL H2O flush every 4 hours to provide 1800 calories, 76 g protein, and 1812mL fluid/day. Will monitor fluid status and labs and adjust flushes as appropriate. 2) Daily wts. Recommend close monitoring of electrolytes given risk for refeeding syndrome. Lab / Micro Data Result Diagrams: 08/31/21 05:45 09/01/21 06:02 Labs: Laboratory Results - last 24 hr 09/01/21 06:02: Sodium 137, Potassium 4.9, Chloride 99, Carbon Dioxide 35.0 H, Anion Gap 3 L, BUN 43 H, Creatinine 0.96, Estim Creat Clear Calc 47.87, Est GFR (MDRD) Af Amer 99, Est GFR (MDRD) Non-Af 82, BUN/Creatinine Ratio 44.7 H, Glucose 95, Calcium 9.1 Micro: Microbiology 08/13/21 10:45 Stool Stool Occult Blood (LU) - Final 08/14/21 Unknown Fluid - Thoracentesis Fluid Gram Stain - Final 08/14/21 Unknown Fluid - Thoracentesis Fluid Body Fluid Culture - Final No growth aerobically. 08/14/21 Unknown Fluid - Thoracentesis Fluid Anaerobic Culture - Final No growth in 5 days. 08/14/21 01:10 Blood Culture (Wb) - Left Hand Blood Culture - Final No growth in 5 days. 08/14/21 01:02 Blood Culture (Wb) - Anticubital Right Blood Culture - Final No growth in 5 days. 08/13/21 21:00 Urine, Clean Catch Legionella Antigen - Final 08/13/21 21:00 Urine, Clean Catch Streptococcus pneumoniae Antigen (M - Final 08/13/21 18:30 Sputum, Induced/Lukens Gram Stain - Final 08/13/21 18:30 Sputum, Induced/Lukens Respiratory Culture - Final Klebsiella pneumoniae sp pneum Gram positive joann 08/13/21 17:51 Mucosa - Nose Influenza Types A,B Direct FA (LU) - Final Physical Exam Narrative Constitutional Narrative: Patient appears frail and unwell, he is alert and appears appropriate. General Appearance: cooperative, well kempt and well developed Orientation / Consciousness: lethargic Nutritional Appearance: cachectic HEENT normocephalic, head/scalp atraumatic and moist oral mucous membranes Head and Scalp: normocephalic Eyes PERRL, EOMs intact bilaterally and conjunctivae normal Neck nuchal rigidity, supple, no JVD, thyroid normal and no carotid bruits General: trachea midline Resp normal respiratory effort, no retractions and no use of accessory muscles Resp Narrative: Decreased breath sounds are noted over the left lower lung field Auscultation: Negative for rales, rhonchi or wheezes Cardio regular rate, regular rhythm, S1 normal heart sound, S2 normal heart sound, no murmurs, no rub and no gallops GI normal to inspection, nondistended, normoactive bowel sounds, soft to palpation, non-tender and non-distended GI Narrative: PEG tube is in place Extremity no clubbing, cyanosis or edema Skin no rashes or lesions noted General Skin Exam: no breakdown Neuro oriented x3, CN's II-XII intact bilaterally, no focal motor deficits and no sensory deficits noted Sensorium / Orientation: awake and alert Psych-patient's affect is flat Const alert, oriented x3 and no apparent distress Constitutional Narrative: Patient appears frail and unwell General Appearance: cooperative, well kempt and well developed Orientation / Consciousness: awake, oriented to person, oriented to place, oriented to time and lethargic Exam Limitations: physical limitations Nutritional Appearance: cachectic HEENT normocephalic, head/scalp atraumatic and moist oral mucous membranes Eyes PERRL, EOMs intact bilaterally and conjunctivae normal Neck nuchal rigidity, no lymphadenopathy, supple, no JVD, thyroid normal and no carotid bruits General: trachea midline Resp normal respiratory effort, no retractions and no use of accessory muscles Resp Narrative: Decreased breath sounds are noted over the left lower lung field Auscultation: diminished lung sounds; Negative for crackles, rales, rhonchi or wheezes Cardio regular rate, regular rhythm, S1 normal heart sound, S2 normal heart sound, no murmurs, no rub and no gallops GI normal to inspection, nondistended, normoactive bowel sounds, soft to palpation, non-tender and non-distended; Negative for hepatosplenomegaly GI Narrative: PEG tube is in place Extremity normal to inspection, full ROM and no clubbing, cyanosis or edema Skin no rashes or lesions noted and no wounds General Skin Exam: no breakdown Neuro oriented x3, CN's II-XII intact bilaterally, moves all extremities, no focal motor deficits and no sensory deficits noted Sensorium / Orientation: awake and alert Speech: speech normal Psych affect normal Psych Narrative: Patient has flat affect, he appears appropriate Mood & Affect: flat affect Assessment & Plan Assessment/Plan (1) Debility: (2) Sepsis with acute hypoxic respiratory failure: PLAN: 1. Acute combined on chronic hypoxic respiratory failure secondary to Klebsiella pneumonia and left pleural effusion-pulmonary medicine is participating in the patient's care, continue bronchodilators, patient has currently finished a course of antibiotics. Patient has been more compliant with wearing AVAPS with his trach cuff inflated. His oxygen requirement has decreased today to 6 L via nasal cannula. #2 severe protein and caloric malnutrition-continue PEG tube feedings per nutritional services, nutritional services is following #3 oropharyngeal dysphagia-patient is n.p.o. at this time, continue PEG tube feedings, speech therapy is working with the patient #4 severe debility-patient will need continued rehab services in a detention facility at the time of discharge, due to his oxygen requirement at this time, patient appears stable for transfer to detention facility at this time due to his lowered oxygen requirement today, however, he will need pre-CERT to go to a senior care. This will likely not happen until Friday or Friday of next week #5 left pleural effusion-according to pulmonary medicine, this is improved with use of diuretics, no thoracentesis is indicated at this time #6 chronic obstructive pulmonary disease-patient will continue on aerosol treatments #7 Central sleep apnea-patient will need to comply with AVAPS through his trach Prognosis is poor at this time due to patient's multiple medical problems and lack of compliance at times. Patient remains a DNR CC arrest no intubation. Charges/Coding Visit Charges Inpatient E&M: 58157 Subs Hosp L2
[2021-09-02] VITALS (16 sets, daily range): BP systolic 102–108; BP diastolic 55–65; PULSE 76–86; RESP 14–23; TEMP 36.3–36.6; O2SAT 90–100
[2021-09-02] MEDS: Furosemide 10 MG/ML Liquid 40 MG PO (06:19)
[2021-09-02 07:20] LABS: Anion Gap 4 (5-15); BUN 41 mg/dL (7-18); BUN/Creat Ratio 43.6 RATIO (10-20); Calcium,Total 8.8 mg/dL (8.5-10.1); Chloride 101 mmol/L (98-107); Creatinine, Serum 0.94 mg/dL (0.70-1.30); EST Glomerular Filtration Rate 84 mL/min (>60); Est Glom Filt Rate - Afr Amer 102 mL/min (>60); Estimated Creatinine Clearance 49.73 ml/min; Glucose 123 mg/dL (74-106); Potassium 4.7 mmol/L (3.5-5.1); Sodium Level 137 mmol/L (136-145)
[2021-09-02] MEDS: Ipratropium/Albuterol Sulfate 3 ML AMPUL.NEB INHALATION ×3 (07:50→19:40)
--- NOTE | 2021-09-02 07:57 | PCM.PN.INT ---
Assessment & Plan Assessment/Plan (1) Pleural effusion, right: PLAN: RECOMMENDATIONS: 1. Continue AVAPS therapy trach with naps and nightly. 2. Wean supplemental oxygen to maintain saturations at or above 90%. 3. Continue nutritional support via PEG tube. 4. Continue aggressive bronchopulmonary hygiene. 5. Continue scheduled bronchodilators. 6. Repeat chest x-ray. Challenge with diuretics again today 7. Okay to arrange discharge to a respiratory facility IMPRESSIONS: 1. Acute combined on chronic hypoxemic respiratory failure secondary to Klebsiella pneumonia and pleural effusion The patient has a baseline medical history including COPD and chronic hypoxemic respiratory failure. Plan to continue supportive measures including aggressive bronchopulmonary hygiene and supplemental oxygen for saturations greater than 90%. The patient has completed a treatment course of antimicrobials. Patient appears to be responding well to nocturnal NIV therapy. Saturations have consistently improved daily with its use. Chest x-ray showing only mild blunting at the costophrenic angle. Continue with diuresis intermittently as necessary. Given stabilization of condition with current therapy, okay to leave to a long-term respiratory center. Continue to challenge with diuretics as labs allow 2. Recent prolonged hospitalization with empyema leading to tracheostomy and PEG Continue supportive measures as noted above. Speech therapy following as modified barium swallow revealed evidence of aspiration. Continue nutritional support via PEG tube. 3. History of COPD/paroxysmal atrial fibrillation/malnutrition/history of alcohol and tobacco dependency Complicates care, management, recovery and prognosis. Continue supportive measures as noted above. Physical therapy to work with the patient. This note was generated with [employer] dictation software. It may contain incorrect words, spelling, and punctuation that were not noted in checking the note before signing. Subjective Subjective Patient did well overnight. Patient did receive BuSpar, but did not ask for the mask to be removed. Patient is not reporting any current chest pain, but is not very interactive. Patient frustrated about using his noninvasive overnight, but does appear to recognize that he is improving. Objective Data Objective Data Vital Signs: Vital Signs Temp Pulse Resp BP Pulse Ox 36.3 C L 80 14 102/65 100 09/02/21 03:43 09/02/21 04:05 09/02/21 04:05 09/02/21 03:43 09/02/21 04:05 Oxygen Flow Rate (L/min) [4] 15 Oxygen Flow Rate (L/min) [3] 15 Oxygen Flow Rate (L/min) [2] 15 Oxygen Flow Rate (L/min) [1 ( 15 Initial Baseline)] Oxygen Flow Rate (L/min) [3] 8 Oxygen Flow Rate (L/min) [2] 8 Oxygen Flow Rate (L/min) [1 ( 8 Initial Baseline)] Oxygen Flow Rate (L/min) 9 Oxygen Delivery Method [4] High Flow Oxygen Delivery Method [3] High Flow Oxygen Delivery Method [2] High Flow Oxygen Delivery Method [1 ( High Flow Initial Baseline)] Oxygen Delivery Method [3] Nasal Cannula Oxygen Delivery Method [2] Nasal Cannula Oxygen Delivery Method [1 ( Nasal Cannula Initial Baseline)] Oxygen Delivery Method Trach Collar Weight: 47.4 kg Body Mass Index (BMI) 17.6 Intake & Output: Intake and Output for Last 24 Hours 08/31/21 09/01/21 09/02/21 23:59 23:59 23:59 Intake Total 3728 / 3728 1300 / 1300 879 / 879 Output Total 650 / 650 900 / 900 150 / 150 Balance 3078 / 3078 400 / 400 729 / 729 Medical Nutrition Assessment Dietitian: Malnutrition Criteria Met Start: 08/14/21 10:16 Freq: Status: Active Protocol: Document 08/26/21 14:00 (Rec: 08/26/21 14:00 [id number]) Nutrition Malnutrition Evidence of Malnutrition Exists Yes Malnutrition (severe): Chronic Evidenced By Suboptimal Energy Intake ( Severe),Weight Loss (Severe), Physical Changes (Severe) Clinical Problem Chronic Disease or Condition Related Malnutrition Etiology severe, chronic malnutrition r /t inadequate energy intake d/ t swallowing difficulty, increased energy needs d/t chronic resp. failure Signs/Symptoms as evidenced by estimated PO intake meeting <75% of estimated energy needs >3 months; obvious signs of severe muscle/fat wasting in the face, orbital and temporal regions per physical exam; BMI 15.3; wt loss of 7.4kg/14% <2 weeks Status Active Problem Recommendation Dietitian Recommendations/Changes 1) Will increase Jevity 1.5 via PEG to 50mL/hour w/ 150mL H2O flush every 4 hours to provide 1800 calories, 76 g protein, and 1812mL fluid/day. Will monitor fluid status and labs and adjust flushes as appropriate. 2) Daily wts. Recommend close monitoring of electrolytes given risk for refeeding syndrome. Lab / Micro Data Result Diagrams: 08/31/21 05:45 09/02/21 06:26 Labs: Laboratory Results - last 24 hr 09/02/21 06:26: Sodium 137, Potassium 4.7, Chloride 101, Carbon Dioxide 32.0, Anion Gap 4 L, BUN 41 H, Creatinine 0.94, Estim Creat Clear Calc 49.73, Est GFR (MDRD) Af Amer 102, Est GFR (MDRD) Non-Af 84, BUN/Creatinine Ratio 43.6 H, Glucose 123 H, Calcium 8.8 Micro: Microbiology 08/13/21 10:45 Stool Stool Occult Blood (LU) - Final 08/14/21 Unknown Fluid - Thoracentesis Fluid Gram Stain - Final 08/14/21 Unknown Fluid - Thoracentesis Fluid Body Fluid Culture - Final No growth aerobically. 08/14/21 Unknown Fluid - Thoracentesis Fluid Anaerobic Culture - Final No growth in 5 days. 08/14/21 01:10 Blood Culture (Wb) - Left Hand Blood Culture - Final No growth in 5 days. 08/14/21 01:02 Blood Culture (Wb) - Anticubital Right Blood Culture - Final No growth in 5 days. 08/13/21 21:00 Urine, Clean Catch Legionella Antigen - Final 08/13/21 21:00 Urine, Clean Catch Streptococcus pneumoniae Antigen (M - Final 08/13/21 18:30 Sputum, Induced/Lukens Gram Stain - Final 08/13/21 18:30 Sputum, Induced/Lukens Respiratory Culture - Final Klebsiella pneumoniae sp pneum Gram positive joann 08/13/21 17:51 Mucosa - Nose Influenza Types A,B Direct FA (LU) - Final Physical Exam Const alert and no apparent distress Constitutional Narrative: On ventilation through tracheostomy during my evaluation. Interactive and appropriate General Appearance: cooperative Nutritional Appearance: thin HEENT normocephalic and head/scalp atraumatic Eyes PERRL and EOMs intact bilaterally Neck supple Neck Narrative: Tracheostomy site is C/D/I. General: trachea midline Chest Chest: abnormal inspection of the chest increased A-P diameter Resp Resp Narrative: Mild dullness to percussion at the left base Auscultation: diminished lung sounds; Negative for rales, rhonchi or wheezes Cardio regular rate and regular rhythm GI normal to inspection, nondistended, normoactive bowel sounds Inspection: GI tube present Extremity no clubbing, cyanosis or edema Skin no rashes or lesions noted Neuro CN's II-XII intact bilaterally and no focal motor deficits Psych Mood & Affect: flat affect Charges/Coding Visit Charges Inpatient E&M: 94496 Subs Hosp L2
[2021-09-02] MEDS: Potassium Chloride Oral Soln 20 MEQ/15 ML UDC 40 MEQ GT (10:30)
[2021-09-02] MEDS: Sertraline 100 MG Tablet 150 MG PO (10:30)
[2021-09-02] MEDS: busPIRone 15 MG TABLET PO ×2 (10:30→23:18)
[2021-09-02] MEDS: Enoxaparin 30 MG/0.3 ML Syringe SC (10:31)
[2021-09-02] MEDS: Famotidine 20 MG Tablet PO ×2 (10:31→23:18)
[2021-09-02] MEDS: Jevity 1.5 1,000 ML 50 ML GT (10:32)
[2021-09-02] MEDS: Acetaminophen 325 MG Tablet 650 MG PO (10:33)
--- NOTE | 2021-09-02 15:20 | PN.HOSP_ITS ---
Subjective Subjective Patient was seen and examined today, he is presently on 6 L of oxygen via nasal cannula and appears comfortable. Patient overall looks improved over the last couple of days, we will be placing a request for placement in [facility] facility that takes ventilator patients Objective Data Objective Data Vital Signs: Vital Signs Temp Pulse Resp BP Pulse Ox 97.8 F 80 18 108/55 L 94 09/02/21 10:21 09/02/21 11:10 09/02/21 10:21 09/02/21 10:21 09/02/21 12:21 Oxygen Flow Rate (L/min) [4] 15 Oxygen Flow Rate (L/min) [3] 15 Oxygen Flow Rate (L/min) [2] 15 Oxygen Flow Rate (L/min) [1 ( 15 Initial Baseline)] Oxygen Flow Rate (L/min) [3] 8 Oxygen Flow Rate (L/min) [2] 8 Oxygen Flow Rate (L/min) [1 ( 8 Initial Baseline)] Oxygen Flow Rate (L/min) 6 Oxygen Delivery Method [4] High Flow Oxygen Delivery Method [3] High Flow Oxygen Delivery Method [2] High Flow Oxygen Delivery Method [1 ( High Flow Initial Baseline)] Oxygen Delivery Method [3] Nasal Cannula Oxygen Delivery Method [2] Nasal Cannula Oxygen Delivery Method [1 ( Nasal Cannula Initial Baseline)] Oxygen Delivery Method Nasal Cannula Weight: 47.4 kg Body Mass Index (BMI) 17.6 Intake & Output: Intake and Output for Last 24 Hours 08/31/21 09/01/21 09/02/21 23:59 23:59 23:59 Intake Total 3728 / 3728 1300 / 1300 1029 / 1029 Output Total 650 / 650 900 / 900 150 / 150 Balance 3078 / 3078 400 / 400 879 / 879 Medical Nutrition Assessment Dietitian: Malnutrition Criteria Met Start: 08/14/21 10:16 Freq: Status: Active Protocol: Document 08/26/21 14:00 (Rec: 08/26/21 14:00 [id number]) Nutrition Malnutrition Evidence of Malnutrition Exists Yes Malnutrition (severe): Chronic Evidenced By Suboptimal Energy Intake ( Severe),Weight Loss (Severe), Physical Changes (Severe) Clinical Problem Chronic Disease or Condition Related Malnutrition Etiology severe, chronic malnutrition r /t inadequate energy intake d/ t swallowing difficulty, increased energy needs d/t chronic resp. failure Signs/Symptoms as evidenced by estimated PO intake meeting <75% of estimated energy needs >3 months; obvious signs of severe muscle/fat wasting in the face, orbital and temporal regions per physical exam; BMI 15.3; wt loss of 7.4kg/14% <2 weeks Status Active Problem Recommendation Dietitian Recommendations/Changes 1) Will increase Jevity 1.5 via PEG to 50mL/hour w/ 150mL H2O flush every 4 hours to provide 1800 calories, 76 g protein, and 1812mL fluid/day. Will monitor fluid status and labs and adjust flushes as appropriate. 2) Daily wts. Recommend close monitoring of electrolytes given risk for refeeding syndrome. Lab / Micro Data Result Diagrams: 08/31/21 05:45 09/02/21 06:26 Labs: Laboratory Results - last 24 hr 09/02/21 06:26: Sodium 137, Potassium 4.7, Chloride 101, Carbon Dioxide 32.0, Anion Gap 4 L, BUN 41 H, Creatinine 0.94, Estim Creat Clear Calc 49.73, Est GFR (MDRD) Af Amer 102, Est GFR (MDRD) Non-Af 84, BUN/Creatinine Ratio 43.6 H, Glucose 123 H, Calcium 8.8 Micro: Microbiology 08/13/21 10:45 Stool Stool Occult Blood (LU) - Final 08/14/21 Unknown Fluid - Thoracentesis Fluid Gram Stain - Final 08/14/21 Unknown Fluid - Thoracentesis Fluid Body Fluid Culture - Final No growth aerobically. 08/14/21 Unknown Fluid - Thoracentesis Fluid Anaerobic Culture - Final No growth in 5 days. 08/14/21 01:10 Blood Culture (Wb) - Left Hand Blood Culture - Final No growth in 5 days. 08/14/21 01:02 Blood Culture (Wb) - Anticubital Right Blood Culture - Final No growth in 5 days. 08/13/21 21:00 Urine, Clean Catch Legionella Antigen - Final 08/13/21 21:00 Urine, Clean Catch Streptococcus pneumoniae Antigen (M - Final 08/13/21 18:30 Sputum, Induced/Lukens Gram Stain - Final 08/13/21 18:30 Sputum, Induced/Lukens Respiratory Culture - Final Klebsiella pneumoniae sp pneum Gram positive joann 08/13/21 17:51 Mucosa - Nose Influenza Types A,B Direct FA (LU) - Final Physical Exam Narrative alert, oriented x3 and no apparent distress Constitutional Narrative: Patient appears frail and unwell General Appearance: cooperative, well kempt and well developed Orientation / Consciousness: awake, oriented to person, oriented to place Exam Limitations: physical limitations Nutritional Appearance: cachectic HEENT normocephalic, head/scalp atraumatic and moist oral mucous membranes Eyes PERRL, EOMs intact bilaterally and conjunctivae normal Neck nuchal rigidity, no lymphadenopathy, supple, no JVD, thyroid normal and no carotid bruits General: trachea midline Resp normal respiratory effort, no retractions and no use of accessory muscles Resp Narrative: Decreased breath sounds are noted over the left lower lung field Auscultation: diminished lung sounds; Negative for crackles, rales, rhonchi or wheezes Cardio regular rate, regular rhythm, S1 normal heart sound, S2 normal heart sound, no murmurs, no rub and no gallops GI normal to inspection, nondistended, normoactive bowel sounds, soft to palpation, non-tender and non-distended; Negative for hepatosplenomegaly GI Narrative: PEG tube is in place Extremity normal to inspection, full ROM and no clubbing, cyanosis or edema Skin no rashes or lesions noted and no wounds General Skin Exam: no breakdown Neuro oriented x3, CN's II-XII intact bilaterally, moves all extremities, no focal motor deficits and no sensory deficits noted Sensorium / Orientation: awake and alert Speech: speech normal Psych affect normal Psych Narrative: Patient has flat affect, he appears appropriate Mood & Affect: flat affect Const alert, oriented x3 and no apparent distress Constitutional Narrative: Patient appears frail and unwell General Appearance: cooperative, well kempt and well developed Orientation / Consciousness: awake, oriented to person, oriented to place, oriented to time and lethargic Exam Limitations: physical limitations Nutritional Appearance: cachectic HEENT normocephalic, head/scalp atraumatic and moist oral mucous membranes Eyes PERRL, EOMs intact bilaterally and conjunctivae normal Neck nuchal rigidity, no lymphadenopathy, supple, no JVD, thyroid normal and no carotid bruits General: trachea midline Resp normal respiratory effort, no retractions and no use of accessory muscles Resp Narrative: Decreased breath sounds are noted over the left lower lung f ield Auscultation: diminished lung sounds; Negative for crackles, rales, rhonchi or wheezes Cardio regular rate, regular rhythm, S1 normal heart sound, S2 normal heart sound, no murmurs, no rub and no gallops GI normal to inspection, nondistended, normoactive bowel sounds, soft to palpation, non-tender and non-distended; Negative for hepatosplenomegaly GI Narrative: PEG tube is in place Extremity normal to inspection, full ROM and no clubbing, cyanosis or edema Skin no rashes or lesions noted and no wounds General Skin Exam: no breakdown Neuro oriented x3, CN's II-XII intact bilaterally, moves all extremities, no focal motor deficits and no sensory deficits noted Sensorium / Orientation: awake and alert Speech: speech normal Psych affect normal Psych Narrative: Patient has flat affect, he appears appropriate Mood & Affect: flat affect Assessment & Plan Assessment/Plan (1) Debility: (2) Sepsis with acute hypoxic respiratory failure: PLAN: 1. Acute combined on chronic hypoxic respiratory failure secondary to Klebsiella pneumonia and left pleural effusion-pulmonary medicine is participating in the patient's care, continue bronchodilators, patient has currently finished a course of antibiotics. Patient has been more compliant with wearing AVAPS with his trach cuff inflated. His oxygen requirement has decreased today to 6 L via nasal cannula. No changes in medication today. #2 severe protein and caloric malnutrition-continue PEG tube feedings per nutritional services, nutritional services is following #3 oropharyngeal dysphagia-patient is n.p.o. at this time, continue PEG tube feedings, speech therapy is working with the patient #4 severe debility-patient will need continued rehab services in a chcf facility at the time of discharge, due to his oxygen requirement at this time, patient appears stable for transfer to chcf facility at this time due to his lowered oxygen requirement today, however, he will need pre-CERT to go to a long-term. This will likely not happen until Friday or Friday of this week #5 left pleural effusion-according to pulmonary medicine, this is improved with use of diuretics, no thoracentesis is indicated at this time #6 chronic obstructive pulmonary disease-patient will continue on aerosol treatments #7 Central sleep apnea-patient will need to comply with AVAPS through his trach Prognosis is poor at this time due to patient's multiple medical problems and lack of compliance at times. Patient remains a DNR CC arrest no intubation. Charges/Coding Visit Charges Inpatient E&M: 10094 Subs Hosp L2
[2021-09-03] VITALS (18 sets, daily range): BP systolic 100–114; BP diastolic 63–69; PULSE 75–86; RESP 14–25; TEMP 36.3–36.6; O2SAT 90–98
[2021-09-03] MEDS: 0.9% Saline Lock 10 ML Syringe IV (05:33)
[2021-09-03 07:34] LABS: Anion Gap 4 (5-15); BUN 35 mg/dL (7-18); BUN/Creat Ratio 42.9 RATIO (10-20); Calcium,Total 8.5 mg/dL (8.5-10.1); Chloride 100 mmol/L (98-107); Creatinine, Serum 0.82 mg/dL (0.70-1.30); EST Glomerular Filtration Rate 100 mL/min (>60); Est Glom Filt Rate - Afr Amer 120 mL/min (>60); Glucose 120 mg/dL (74-106); Potassium 4.5 mmol/L (3.5-5.1); Sodium Level 135 mmol/L (136-145)
[2021-09-03] MEDS: Jevity 1.5 1,000 ML 50 ML GT (08:01)
--- NOTE | 2021-09-03 09:06 | CASEMGMT ---
PILI called Leatha at [facility] and left her a message requesting return call. Winifred Christensen/Alannah financial planning analyst is faxing updates and requesting pre-cert be started if not already. Rachel Ruablcava DATA ANALYSIS INTERN LESLIE
--- NOTE | 2021-09-03 09:26 | CASEMGMT ---
Addendum entered by Susan Wilson 09/03/21 10:53: Behavioral Health had been consulted but d/t the fact that pt is complying with medical treatment, Dr. Ray states it is not necessary for to see pt at this time. Marcos at notified to cancel referral at this time, voices understanding. Gian RAUSCH CM Original Note: Pt has improved with oxygen over weekend after wearing AVAPs for several nights in a row and per Dr. Ray is no [facility]. Call to Happy at [facility] and made her aware to disregard referral at this time, voices understanding. Plan is for pt to go to [facility] [place] after precert obtained. Gian RAUSCH CM
--- NOTE | 2021-09-03 09:33 | CASEMGMT ---
Discharge Oil Prospecting Observer Faxed update to [facility]. Called and left VM. Put on fax cover sheet about pre-cert to. Will follow up. Amparo Isabel Discharge Oil Prospecting Observer
[2021-09-03] MEDS: Sertraline 100 MG Tablet 150 MG PO (09:42)
[2021-09-03] MEDS: Famotidine 20 MG Tablet PO ×2 (09:42→21:42)
[2021-09-03] MEDS: Potassium Chloride Oral Soln 20 MEQ/15 ML UDC 40 MEQ GT (09:42)
[2021-09-03] MEDS: Enoxaparin 30 MG/0.3 ML Syringe SC (09:42)
--- NOTE | 2021-09-03 10:47 | PN.CC_ITS ---
Assessment & Plan Assessment/Plan (1) Pleural effusion, right: PLAN: RECOMMENDATIONS: 1. Continue AVAPS therapy trach with naps and nightly. 2. Wean supplemental oxygen to maintain saturations at or above 90%. 3. Continue nutritional support via PEG tube. 4. Continue aggressive bronchopulmonary hygiene. 5. Continue scheduled bronchodilators. 6. Continue intermittent diuresis as tolerated by hemodynamics and renal function. IMPRESSIONS: 1. Acute combined on chronic hypoxemic respiratory failure secondary to Klebsiella pneumonia and pleural effusion The patient has a baseline medical history including COPD and chronic hypoxemic respiratory failure. Plan to continue supportive measures including aggressive bronchopulmonary hygiene and supplemental oxygen for saturations greater than 90%. The patient has completed a treatment course of antimicrobials. The patient's oxygenation status has improved in light of his compliance with NIV therapy. Continue diuretic therapy intermittently as tolerated by hemodynamics and renal function. 2. Recent prolonged hospitalization with empyema leading to tracheostomy and PEG Continue supportive measures as noted above. Speech therapy following as yogi fied barium swallow revealed evidence of aspiration. Continue nutritional support via PEG tube. 3. History of COPD/paroxysmal atrial fibrillation/malnutrition/history of alcohol and tobacco dependency Complicates care, management, recovery and prognosis. Continue supportive measures as noted above. Physical therapy to work with the patient. This note was generated with [employer] dictation software. It may contain incorrect words, spelling, and punctuation that were not noted in checking the note before signing. Subjective Subjective The patient was seen and examined at the bedside this morning. Events from the last 24 hours have been reviewed. The patient is currently afebrile, hemodynam ically stable and maintaining appropriate oxygen saturations on 3 L/min. The patient is currently documented to be overall net +9.8 L for the hospitalization. The patient has been much more compliant with nightly Pap therapy. Objective Data Objective Data The patient's most recent lab work, culture data and imaging studies have all been personally reviewed. Surface echocardiogram from February 2021 demonstrated normal LV size and function with an ejection fraction of 50% and a pulmonary artery systolic pressure estimated to be 50 mmHg. Sputum culture dated August 13 was positive for Klebsiella pneumoniae. Vital Signs: Vital Signs Temp Pulse Resp BP Pulse Ox 97.8 F 85 25 H 114/69 90 09/03/21 09:20 09/03/21 09:20 09/03/21 09:20 09/03/21 09:20 09/03/21 09:20 Oxygen Flow Rate (L/min) [4] 15 Oxygen Flow Rate (L/min) [3] 15 Oxygen Flow Rate (L/min) [2] 15 Oxygen Flow Rate (L/min) [1 ( 15 Initial Baseline)] Oxygen Flow Rate (L/min) [3] 8 Oxygen Flow Rate (L/min) [2] 8 Oxygen Flow Rate (L/min) [1 ( 8 Initial Baseline)] Oxygen Flow Rate (L/min) 3 Oxygen Delivery Method [4] High Flow Oxygen Delivery Method [3] High Flow Oxygen Delivery Method [2] High Flow Oxygen Delivery Method [1 ( High Flow Initial Baseline)] Oxygen Delivery Method [3] Nasal Cannula Oxygen Delivery Method [2] Nasal Cannula Oxygen Delivery Method [1 ( Nasal Cannula Initial Baseline)] Oxygen Delivery Method Nasal Cannula Weight: 47.4 kg Body Mass Index (BMI) 17.6 Intake & Output: Intake and Output for Last 24 Hours 09/01/21 09/02/21 09/03/21 23:59 23:59 23:59 Intake Total 1300 / 1300 1502 / 2583 1483 / 1483 Output Total 900 / 900 700 / 1350 750 / 750 Balance 400 / 400 802 / 1233 733 / 733 Medical Nutrition Assessment Dietitian: Malnutrition Criteria Met Start: 08/14/21 10:16 Freq: Status: Active Protocol: Document 08/26/21 14:00 (Rec: 08/26/21 14:00 [id number]) Nutrition Malnutrition Evidence of Malnutrition Exists Yes Malnutrition (severe): Chronic Evidenced By Suboptimal Energy Intake ( Severe),Weight Loss (Severe), Physical Changes (Severe) Clinical Problem Chronic Disease or Condition Related Malnutrition Etiology severe, chronic malnutrition r /t inadequate energy intake d/ t swallowing difficulty, increased energy needs d/t chronic resp. failure Signs/Symptoms as evidenced by estimated PO intake meeting <75% of estimated energy needs >3 months; obvious signs of severe muscle/fat wasting in the face, orbital and temporal regions per physical exam; BMI 15.3; wt loss of 7.4kg/14% <2 weeks Status Active Problem Recommendation Dietitian Recommendations/Changes 1) Will increase Jevity 1.5 via PEG to 50mL/hour w/ 150mL H2O flush every 4 hours to provide 1800 calories, 76 g protein, and 1812mL fluid/day. Will monitor fluid status and labs and adjust flushes as appropriate. 2) Daily wts. Recommend close monitoring of electrolytes given risk for refeeding syndrome. Lab / Micro Data Result Diagrams: 08/31/21 05:45 09/03/21 05:45 Labs: Laboratory Results - last 24 hr 09/03/21 05:45: Sodium 135 L, Potassium 4.5, Chloride 100, Carbon Dioxide 31.0, Anion Gap 4 L, BUN 35 H, Creatinine 0.82, Estim Creat Clear Calc 57.00, Est GFR (MDRD) Af Amer 120, Est GFR (MDRD) Non-Af 100, BUN/Creatinine Ratio 42.9 H, Glucose 120 H, Calcium 8.5 Micro: Microbiology 08/13/21 10:45 Stool Stool Occult Blood (LU) - Final 08/14/21 Unknown Fluid - Thoracentesis Fluid Gram Stain - Final 08/14/21 Unknown Fluid - Thoracentesis Fluid Body Fluid Culture - Final No growth aerobically. 08/14/21 Unknown Fluid - Thoracentesis Fluid Anaerobic Culture - Final No growth in 5 days. 08/14/21 01:10 Blood Culture (Wb) - Left Hand Blood Culture - Final No growth in 5 days. 08/14/21 01:02 Blood Culture (Wb) - Anticubital Right Blood Culture - Final No growth in 5 days. 08/13/21 21:00 Urine, Clean Catch Legionella Antigen - Final 08/13/21 21:00 Urine, Clean Catch Streptococcus pneumoniae Antigen (M - Final 08/13/21 18:30 Sputum, Induced/Lukens Gram Stain - Final 08/13/21 18:30 Sputum, Induced/Lukens Respiratory Culture - Final Klebsiella pneumoniae sp pneum Gram positive joann 08/13/21 17:51 Mucosa - Nose Influenza Types A,B Direct FA (LU) - Final Physical Exam Const alert and no apparent distress General Appearance: cooperative Nutritional Appearance: thin HEENT normocephalic and head/scalp atraumatic Eyes PERRL and EOMs intact bilaterally Neck supple Neck Narrative: Tracheostomy site is C/D/I. General: trachea midline Chest inspection of chest normal Resp Auscultation: diminished lung sounds; Negative for rales, rhonchi or wheezes Cardio regular rate and regular rhythm GI normal to inspection, nondistended, normoactive bowel sounds Inspection: GI tube present Extremity no clubbing, cyanosis or edema Skin no rashes or lesions noted Neuro CN's II-XII intact bilaterally and no focal motor deficits Psych Mood & Affect: flat affect Charges/Coding Visit Charges Inpatient E&M: 84021 Subs Hosp L2
--- NOTE | 2021-09-03 11:37 | CASEMGMT ---
PILI spoke with Melissa at [facility]. She asked if [facility] Respiratory Therapist could call Linden their Respiratory Therapist. PILI told her SW will give the information to the therapist. Linden is the Respiratory Therapist at [facility]. Her phone number is [phone]. Melissa did start pre-cert. PILI spoke with Kurt and gave him the phone number. Plan: d/c to [facility] pending pre-cert. Rachel Rubalcava FISHING HAND LESLIE
--- NOTE | 2021-09-03 14:09 | CASEMGMT ---
PILI called [facility] and spoke with Hafsa. PILI let Hafsa know that patient is going to another fdc that is able to take patient's on ventilators as he needs a non-invasive ventilator on his trach. Hafsa will pass along the message to [facility]. PILI is waiting on patient's mom to come in so PILI can talk with her about [place] [facility] [place]. Rachel Rubalcava MSW LESLIE
--- NOTE | 2021-09-03 14:31 | PCM.PN.HOSP ---
Subjective Subjective Patient was seen and examined today, he did not carry on a conversation with me today, he is alert at times and responds appropriately to nursing. Patient is currently on 4 L via nasal cannula-his saturation is 95%. Objective Data Objective Data Vital Signs: Vital Signs Temp Pulse Resp BP Pulse Ox 97.9 F 84 18 102/63 95 09/03/21 12:48 09/03/21 12:48 09/03/21 12:48 09/03/21 12:48 09/03/21 13:42 Oxygen Flow Rate (L/min) [4] 15 Oxygen Flow Rate (L/min) [3] 15 Oxygen Flow Rate (L/min) [2] 15 Oxygen Flow Rate (L/min) [1 ( 15 Initial Baseline)] Oxygen Flow Rate (L/min) [3] 8 Oxygen Flow Rate (L/min) [2] 8 Oxygen Flow Rate (L/min) [1 ( 8 Initial Baseline)] Oxygen Flow Rate (L/min) 4 Oxygen Delivery Method [4] High Flow Oxygen Delivery Method [3] High Flow Oxygen Delivery Method [2] High Flow Oxygen Delivery Method [1 ( High Flow Initial Baseline)] Oxygen Delivery Method [3] Nasal Cannula Oxygen Delivery Method [2] Nasal Cannula Oxygen Delivery Method [1 ( Nasal Cannula Initial Baseline)] Oxygen Delivery Method Nasal Cannula Weight: 47.4 kg Body Mass Index (BMI) 17.6 Intake & Output: Intake and Output for Last 24 Hours 09/01/21 09/02/21 09/03/21 23:59 23:59 23:59 Intake Total 1300 / 1300 1502 / 2583 1513 / 1513 Output Total 900 / 900 700 / 1350 750 / 750 Balance 400 / 400 802 / 1233 763 / 763 Medical Nutrition Assessment Dietitian: Malnutrition Criteria Met Start: 08/14/21 10:16 Freq: Status: Active Protocol: Document 08/26/21 14:00 (Rec: 08/26/21 14:00 [id number]) Nutrition Malnutrition Evidence of Malnutrition Exists Yes Malnutrition (severe): Chronic Evidenced By Suboptimal Energy Intake ( Severe),Weight Loss (Severe), Physical Changes (Severe) Clinical Problem Chronic Disease or Condition Related Malnutrition Etiology severe, chronic malnutrition r /t inadequate energy intake d/ t swallowing difficulty, increased energy needs d/t chronic resp. failure Signs/Symptoms as evidenced by estimated PO intake meeting <75% of estimated energy needs >3 months; obvious signs of severe muscle/fat wasting in the face, orbital and temporal regions per physical exam; BMI 15.3; wt loss of 7.4kg/14% <2 weeks Status Active Problem Recommendation Dietitian Recommendations/Changes 1) Will increase Jevity 1.5 via PEG to 50mL/hour w/ 150mL H2O flush every 4 hours to provide 1800 calories, 76 g protein, and 1812mL fluid/day. Will monitor fluid status and labs and adjust flushes as appropriate. 2) Daily wts. Recommend close monitoring of electrolytes given risk for refeeding syndrome. Lab / Micro Data Result Diagrams: 08/31/21 05:45 09/03/21 05:45 Labs: Laboratory Results - last 24 hr 09/03/21 05:45: Sodium 135 L, Potassium 4.5, Chloride 100, Carbon Dioxide 31.0, Anion Gap 4 L, BUN 35 H, Creatinine 0.82, Estim Creat Clear Calc 57.00, Est GFR (MDRD) Af Amer 120, Est GFR (MDRD) Non-Af 100, BUN/Creatinine Ratio 42.9 H, Glucose 120 H, Calcium 8.5 Micro: Microbiology 08/13/21 10:45 Stool Stool Occult Blood (LU) - Final 08/14/21 Unknown Fluid - Thoracentesis Fluid Gram Stain - Final 08/14/21 Unknown Fluid - Thoracentesis Fluid Body Fluid Culture - Final No growth aerobically. 08/14/21 Unknown Fluid - Thoracentesis Fluid Anaerobic Culture - Final No growth in 5 days. 08/14/21 01:10 Blood Culture (Wb) - Left Hand Blood Culture - Final No growth in 5 days. 08/14/21 01:02 Blood Culture (Wb) - Anticubital Right Blood Culture - Final No growth in 5 days. 08/13/21 21:00 Urine, Clean Catch Legionella Antigen - Final 08/13/21 21:00 Urine, Clean Catch Streptococcus pneumoniae Antigen (M - Final 08/13/21 18:30 Sputum, Induced/Lukens Gram Stain - Final 08/13/21 18:30 Sputum, Induced/Lukens Respiratory Culture - Final Klebsiella pneumoniae sp pneum Gram positive joann 08/13/21 17:51 Mucosa - Nose Influenza Types A,B Direct FA (LU) - Final Physical Exam Narrative alert, no apparent distress Constitutional Narrative: Patient appears frail and unwell General Appearance: cooperative, well kempt and well developed Orientation / Consciousness: awake, oriented to person, oriented to place Exam Limitations: physical limitations Nutritional Appearance: cachectic HEENT normocephalic, head/scalp atraumatic and moist oral mucous membranes Eyes PERRL, EOMs intact bilaterally and conjunctivae normal Neck nuchal rigidity, no lymphadenopathy, supple, no JVD, thyroid normal and no carotid bruits General: trachea midline Resp normal respiratory effort, no retractions and no use of accessory muscles Resp Narrative: Decreased breath sounds are noted over the left lower lung field Auscultation: diminished lung sounds; Negative for crackles, rales, rhonchi or wheezes Cardio regular rate, regular rhythm, S1 normal heart sound, S2 normal heart sound, no murmurs, no rub and no gallops GI normal to inspection, nondistended, normoactive bowel sounds, soft to palpation, non-tender and non-distended; Negative for hepatosplenomegaly GI Narrative: PEG tube is in place Extremity normal to inspection, full ROM and no clubbing, cyanosis or edema Skin no rashes or lesions noted and no wounds General Skin Exam: no breakdown Neuro oriented x3, CN's II-XII intact bilaterally, moves all extremities, no focal motor deficits and no sensory deficits noted Sensorium / Orientation: awake and alert Speech: speech normal Psych Narrative: Patient has flat affect, he appears appropriate Mood & Affect: flat affect Const alert, oriented x3 and no apparent distress Constitutional Narrative: Patient appears frail and unwell General Appearance: cooperative, well kempt and well developed Orientation / Consciousness: awake, oriented to person, oriented to place, oriented to time and lethargic Exam Limitations: physical limitations Nutritional Appearance: cachectic HEENT normocephalic, head/scalp atraumatic and moist oral mucous membranes Eyes PERRL, EOMs intact bilaterally and conjunctivae normal Neck nuchal rigidity, no lymphadenopathy, supple, no JVD, thyroid normal and no carotid bruits General: trachea midline Resp normal respiratory effort, no retractions and no use of accessory muscles Resp Narrative: Decreased breath sounds are noted over the left lower lung field Auscultation: diminished lung sounds; Negative for crackles, rales, rhonchi or wheezes Cardio regular rate, regular rhythm, S1 normal heart sound, S2 normal heart sound, no murmurs, no rub and no gallops GI normal to inspection, nondistended, normoactive bowel sounds, soft to palpation, non-tender and non-distended; Negative for hepatosplenomegaly GI Narrative: PEG tube is in place Extremity normal to inspection, full ROM and no clubbing, cyanosis or edema Skin no rashes or lesions noted and no wounds General Skin Exam: no breakdown Neuro oriented x3, CN's II-XII intact bilaterally, moves all extremities, no focal motor deficits and no sensory deficits noted Sensorium / Orientation: awake and alert Speech: speech normal Psych affect normal Psych Narrative: Patient has flat affect, he appears appropriate Mood & Affect: flat affect Assessment & Plan Assessment/Plan (1) Debility: (2) Sepsis with acute hypoxic respiratory failure: PLAN: 1. Acute combined on chronic hypoxic respiratory failure secondary to Klebsiella pneumonia and left pleural effusion-pulmonary medicine is participating in the patient's care, continue bronchodilators, patient has currently finished a course of antibiotics. Patient has been more compliant with wearing AVAPS with his trach cuff inflated. His oxygen requirement has decreased today to 4 L via nasal cannula. No changes in medication today. #2 severe protein and caloric malnutrition-continue PEG tube feedings per nutritional services, nutritional services is following #3 oropharyngeal dysphagia-patient is n.p.o. at this time, continue PEG tube feedings, speech therapy is working with the patient #4 severe debility-patient will need continued rehab services in a long term facility at the time of discharge, due to his oxygen requirement at this time, patient appears stable for transfer to long term facility at this time due to his lowered oxygen requirement today, however, he will need pre-CERT to go to a [place] [facility]. This will likely not happen until later this week. #5 left pleural effusion-according to pulmonary medicine, this is improved with use of diuretics, no thoracentesis is indicated at this time #6 chronic obstructive pulmonary disease-patient will continue on aerosol treatments #7 Central sleep apnea-patient will need to comply with AVAPS through his trach-according to nursing he is compliant Prognosis is poor at this time due to patient's multiple medical problems and lack of compliance at times. Patient remains a DNR CC arrest no intubation. Charges/Coding Visit Charges Inpatient E&M: 86494 Subs Hosp L2
--- NOTE | 2021-09-03 15:00 | CASEMGMT ---
PILI received a call from Melissa with [facility] [place]. Melissa said they are going to bring patient in under his Medicaid. Therefore, SW will need to get a level of care from [facility]. PILI notified physician and he will work on the Transfer to Extended Care and med list so SW can send the level of care request to [facility]. Rachel Rubalcava NAVAL AIRCREWMAN LESLIE
--- NOTE | 2021-09-03 16:14 | CASEMGMT ---
PILI spoke with patient's mom regarding [facility]. PILI gave her some information PILI printed out on [facility]. PILI let her know it could be as early as tomorrow. Rachel Rubalcava CIGARETTE PACKING MACHINE OPERATOR LESLIE
--- NOTE | 2021-09-03 16:18 | TREXTCAR_ITS ---
Diet 08/13/21 18:02 Diet: Nothing Per Oral Diet Comments: Frequent oral care Routine Orders/Code Status O2 Liters per Minute: 4 liters O2 Frequency: Continuous Keep PO Greater than or Equal to (%): 90 Routine Lab Work: CBC (In 1 week) Code Status: DNRCC-A (No intubation) Wound(s) left post chest: Wound Type: Puncture Suggestions for Active Care Hours to sit in a chair: 4 Times a day to sit in chair: 2 Therapies Weight Bearing: advance to weight learing Physical Therapy: Eval and Treat Occupational Therapy: Eval and Treat Speech Therapy: Eval and Treat Problem/Diagnosis (1) Debility: Status: Acute (2) COPD (chronic obstructive pulmonary disease): Status: Chronic (3) Chronic respiratory failure: Status: Chronic (4) Recurrent left pleural effusion: Status: Acute (5) Dysphagia: Status: Chronic (6) Malnutrition: Status: Acute (7) Depression: Status: Acute Allergies/Procedures Done in Hospital Allergies No Known Allergies Allergy (Verified 07/27/21 18:52) Procedures: None Type of Care/Length of Stay Estimated LOS: More Than 30 Days Type of Care Needed: Skilled Rehab Potential: Fair Prognosis: Fair Additional Orders/Day of Discharge H&P will serve as current which was dated: 08/13/21 Day of Discharge: 09/04/21 Dietary and Speech Recommendations Dietitian Recommendations/Changes: 1) Will continue Jevity 1.5 via PEG to 50mL/hour w/ 150mL H2O flush every 4 hours to provide 1800 calories, 76 g protein, and 1812mL fluid/day. Will monitor fluid status and labs and adjust flushes as appropriate. 2) Daily wts. Recommend close monitoring of electrolytes given risk for refeeding syndrome. Discharge Plan Admission Admit Date/Time: 08/13/21 14:54 Primary Reason for Your Visit: respiratory failure Attending Provider: Rohan Arizmendi Primary Care Provider: Aleyda Ny Consulting Providers: Evens Vasquez ; Gerard Gibbs ; Rosmery Fish SHOE REPAIR COBBLER Instructions Additional Instructions / Restrictions: Jevity 1.5 at 60 ml/hr continuous Use AVAPS through the trach when sleeping and at night-setting: Rate of 14, FiO2 0.3 Discharge Orders/Prescriptions Prescriptions: New ipratropium-albuterol 0.5 mg-3 mg(2.5 mg base)/3 mL Solution For Nebulization 3 ml inhalation Q6HWA.RT Qty: 0 RF: 0 sertraline 100 mg Tablet 150 mg PO DAILY Qty: 0 RF: 0 potassium chloride 20 mEq/15 mL Liquid 40 meq G-tube DAILY Qty: 0 RF: 0 Continued albuterol sulfate 90 mcg/actuation HFA aerosol inhaler 2 puff INHALATION Q4H PRN (Reason: shortness of breath or wheezing) Qty: 8.5 RF: 6 loperamide 2 mg Capsule 2 mg PO Q6H PRN (Reason: Diarrhea) RF: 0 famotidine 20 mg Tablet 20 mg PO BID RF: 0 buspirone 15 mg Tablet 15 mg PO TID PRN (Reason: Anxiety) RF: 0 acetaminophen [Tylenol] 325 mg Tablet 650 mg PO Q4H PRN PRN (Reason: Fever, pain 1-04/08) Qty: 0 RF: 0 enoxaparin 40 mg/0.4 mL Syringe 30 mg SUBCUT DAILY Qty: 0 RF: 0 guaifenesin 100 mg/5 mL Liquid 200 mg PO Q4H PRN (Reason: Cough) RF: 0 Discontinued mirtazapine [Remeron] 15 mg Tablet 7.5 mg PO QHS RF: 0 guaifenesin 50 mg/5 mL Liquid 200 mg PO Q4H PRN (Reason: cough) RF: 0 magnesium oxide 400 mg magnesium Tablet 400 mg PO DAILY RF: 0 sertraline 50 mg Tablet 50 mg PO DAILY Qty: 0 RF: 0 Jevity 1.5 Gamal 0.06 gram-1.5 kcal/mL Liquid 250 ml G-tube TIDPC Qty: 0 RF: 0 potassium, sodium phosphates 280-160-250 mg Powder In Packet 1 packet G-tube TID Qty: 6 RF: 0 Referrals / Follow Up: Aleyda Ny MD [Primary Care Provider] - Disposition Disposition (needs filled in before D/C Order can be placed): Assisted Facility
[2021-09-03] MEDS: busPIRone 15 MG TABLET PO (21:42)
[2021-09-03] MEDS: Ipratropium/Albuterol Sulfate 3 ML AMPUL.NEB INHALATION (22:09)
[2021-09-04] VITALS (17 sets, daily range): BP systolic 100–122; BP diastolic 60–67; PULSE 79–95; RESP 12–27; TEMP 36.3–36.6; O2SAT 91–98
--- NOTE | 2021-09-04 07:12 | CPS ---
Bipap connected to Trach
[2021-09-04] MEDS: Ipratropium/Albuterol Sulfate 3 ML AMPUL.NEB INHALATION ×3 (07:17→19:14)
--- NOTE | 2021-09-04 07:45 | PN.CC_ITS ---
Assessment & Plan Assessment/Plan (1) Pleural effusion, right: PLAN: RECOMMENDATIONS: 1. Continue AVAPS therapy via trach with naps and nightly. 2. Wean supplemental oxygen to maintain saturations at or above 90%. 3. Continue nutritional support via PEG tube. 4. Continue aggressive bronchopulmonary hygiene. 5. Continue scheduled bronchodilators. 6. Continue intermittent diuresis as tolerated by hemodynamics and renal function. IMPRESSIONS: 1. Acute combined on chronic hypoxemic respiratory failure secondary to Klebsiella pneumonia and pleural effusion The patient has a baseline medical history including COPD and chronic hypoxemic respiratory failure. Plan to continue supportive measures including aggressive bronchopulmonary hygiene and supplemental oxygen for saturations greater than 90%. The patient has completed a treatment course of antimicrobials. The patient's oxygenation status has improved in light of his compliance with NIV therapy. Continue diuretic therapy intermittently as tolerated by hemodynamics and renal function. 2. Recent prolonged hospitalization with empyema leading to tracheostomy and PEG Continue supportive measures as noted above. Speech therapy following as modified barium swallow revealed evidence of aspiration. Continue nutritional support via PEG tube. 3. History of COPD/paroxysmal atrial fibrillation/malnutrition/history of alcohol and tobacco dependency Complicates care, management, recovery and prognosis. Continue supportive measures as noted above. Physical therapy to work with the patient. This note was generated with Nursing Home Quality dictation software. It may contain incorrect words, spelling, and punctuation that were not noted in checking the note before signing. Subjective Subjective The patient was seen and examined at the bedside this morning. Events from the last 24 hours have been reviewed. The patient is currently afebrile, hemod ynamically stable and maintaining appropriate oxygen saturations on 5 L/min. The patient is currently documented to be overall net +12.2 L for the hospitalization. The patient remains tolerant of nocturnal AVAPS therapy. Objective Data Objective Data The patient's most recent lab work, culture data and imaging studies have all been personally reviewed. Surface echocardiogram from February 2021 demonstrated normal LV size and function with an ejection fraction of 50% and a pulmonary artery systolic pressure estimated to be 50 mmHg. Sputum culture dated August 13 was positive for Klebsiella pneumoniae. Vital Signs: Vital Signs Temp Pulse Resp BP Pulse Ox 97.7 F L 95 27 H 102/62 93 09/04/21 06:28 09/04/21 07:07 09/04/21 07:07 09/04/21 06:28 09/04/21 07:30 Oxygen Flow Rate (L/min) [4] 15 Oxygen Flow Rate (L/min) [3] 15 Oxygen Flow Rate (L/min) [2] 15 Oxygen Flow Rate (L/min) [1 ( 15 Initial Baseline)] Oxygen Flow Rate (L/min) [3] 8 Oxygen Flow Rate (L/min) [2] 8 Oxygen Flow Rate (L/min) [1 ( 8 Initial Baseline)] Oxygen Flow Rate (L/min) 5 Oxygen Delivery Method [4] High Flow Oxygen Delivery Method [3] High Flow Oxygen Delivery Method [2] High Flow Oxygen Delivery Method [1 ( High Flow Initial Baseline)] Oxygen Delivery Method [3] Nasal Cannula Oxygen Delivery Method [2] Nasal Cannula Oxygen Delivery Method [1 ( Nasal Cannula Initial Baseline)] Oxygen Delivery Method High Flow Weight: 47.6 kg Body Mass Index (BMI) 17.6 Intake & Output: Intake and Output for Last 24 Hours 09/02/21 09/03/21 09/04/21 23:59 23:59 23:59 Intake Total 1502 / 2583 3029 / 3438 843 / 843 Output Total 700 / 1350 750 / 750 Balance 802 / 1233 2279 / 2688 843 / 843 Medical Nutrition Assessment Dietitian: Malnutrition Criteria Met Start: 08/14/21 10:16 Freq: Status: Active Protocol: Document 09/03/21 15:20 ELLEN (Rec: 09/03/21 15:20 [facility] [id number]) Nutrition Malnutrition Evidence of Malnutrition Exists Yes Malnutrition (severe): Chronic Evidenced By Suboptimal Energy Intake ( Severe),Weight Loss (Severe), Physical Changes (Severe) Clinical Problem Chronic Disease or Condition Related Malnutrition Etiology severe, chronic malnutrition r /t inadequate energy intake d/ t swallowing difficulty, increased energy needs d/t chronic resp. failure Signs/Symptoms as evidenced by estimated PO intake meeting <75% of estimated energy needs >3 months; obvious signs of severe muscle/fat wasting in the face, orbital and temporal regions per physical exam; BMI 15.4; wt loss of 16% <2 weeks Status Active Problem Recommendation Dietitian Recommendations/Changes 1) Will continue Jevity 1.5 via PEG to 50mL/hour w/ 150mL H2O flush every 4 hours to provide 1800 calories, 76 g protein, and 1812mL fluid/day. Will monitor fluid status and labs and adjust flushes as appropriate. 2) Daily wts. Recommend close monitoring of electrolytes given risk for refeeding syndrome. Lab / Micro Data Attestation: I reviewed the patient's lab results. Result Diagrams: 08/31/21 05:45 09/03/21 05:45 Micro: Microbiology 08/13/21 10:45 Stool Stool Occult Blood (LU) - Final 08/14/21 Unknown Fluid - Thoracentesis Fluid Gram Stain - Final 08/14/21 Unknown Fluid - Thoracentesis Fluid Body Fluid Culture - Final No growth aerobically. 08/14/21 Unknown Fluid - Thoracentesis Fluid Anaerobic Culture - Final No growth in 5 days. 08/14/21 01:10 Blood Culture (Wb) - Left Hand Blood Culture - Final No growth in 5 days. 08/14/21 01:02 Blood Culture (Wb) - Anticubital Right Blood Culture - Final No growth in 5 days. 08/13/21 21:00 Urine, Clean Catch Legionella Antigen - Final 08/13/21 21:00 Urine, Clean Catch Streptococcus pneumoniae Antigen (M - Final 08/13/21 18:30 Sputum, Induced/Lukens Gram Stain - Final 08/13/21 18:30 Sputum, Induced/Lukens Respiratory Culture - Final Klebsiella pneumoniae sp pneum Gram positive joann 08/13/21 17:51 Mucosa - Nose Influenza Types A,B Direct FA (LU) - Final Physical Exam Const alert and no apparent distress General Appearance: cooperative Nutritional Appearance: thin HEENT normocephalic and head/scalp atraumatic Eyes PERRL and EOMs intact bilaterally Neck supple Neck Narrative: Tracheostomy site is C/D/I. General: trachea midline Chest inspection of chest normal Resp Auscultation: diminished lung sounds; Negative for rales, rhonchi or wheezes Cardio regular rate and regular rhythm GI normal to inspection, nondistended, normoactive bowel sounds Inspection: GI tube present Extremity no clubbing, cyanosis or edema Skin no rashes or lesions noted Neuro CN's II-XII intact bilaterally and no focal motor deficits Psych Mood & Affect: flat affect Charges/Coding Visit Charges Inpatient E&M: 10920 Subs Hosp L2
[2021-09-04] MEDS: Jevity 1.5 1,000 ML 50 ML GT (07:51)
[2021-09-04] MEDS: Famotidine 20 MG Tablet PO ×2 (09:18→22:49)
[2021-09-04] MEDS: Sertraline 100 MG Tablet 150 MG PO (09:18)
[2021-09-04] MEDS: Enoxaparin 30 MG/0.3 ML Syringe SC (09:18)
[2021-09-04] MEDS: Potassium Chloride Oral Soln 20 MEQ/15 ML UDC 40 MEQ GT (09:18)
--- NOTE | 2021-09-04 09:30 | CASEMGMT ---
PILI faxed all necessary information to [facility] to obtain a level of care so [facility]. Rachel Rubalcava CONCRETE CRUSHER LOADER OPERATOR LESLIE
[2021-09-04] MEDS: Furosemide 40 MG/4 ML Vial IV (11:32)
--- NOTE | 2021-09-04 12:11 | CASEMGMT ---
PILI received a call from Radha at [facility]. SW needs to complete a PASRR for patient as [facility] discharged patient from their -52-04. Radha told SW to get the PASRR to her and she will get the level of care to SW before the end of the day today. PILI called [facility] and Melissa in admissions was not in today. PILI spoke with Luisa and let her know SW will get the level of care today so patient will come today. Liusa said she is going to check with her respiratory therapist to make sure she has this set up. Luisa told SW to call her when SW gets the level of care. Rachel Rubalcava CAN STRIPER LESLIE
--- NOTE | 2021-09-04 13:24 | CASEMGMT ---
PILI received a call from Linden, the Respiratory therapist at [facility]. Linden is not able to get patient's equipment today. She asked if transport could be set up for tomorrow am. PILI arranged for patient to get picked up at 10a via cot. PILI faxed d/c orders that physician completed today to [facility]. PILI wrote on fax face sheet that orders may change tomorrow. PILI called Linden the respiratory therapist at [facility] and let her know this information. PILI will update RN as well as patient's mom when she arrives. Plan: d/c to [facility] under intermediate level of care on a PASRR. [facility] will pear picker patient tomorrow Wed 3-9 at 10a. Rachel NELSON
--- NOTE | 2021-09-04 15:46 | CASEMGMT ---
PILI spoke with patient's mom, Jennifer. She asked if patient was leaving today and SW told her that he will be leaving tomorrow at 10am. She asked about visitation at [facility]. PILI called [facility] and there is no restriction on visitation. PILI called patient's mom back and let her know about visitation. Plan: d/c to [facility] 09-05-21 at 10a via cot by [facility]. PILI completed a PASRR. Rachel Rubalcava COMMUNITY ADMINISTRATOR LESLIE
--- NOTE | 2021-09-04 16:03 | CASEMGMT ---
PILI notified patient that he will be discharged to [facility] tomorrow and transport will pick him up at 10a. PILI notified his mom. Rachel Rubalcava CAR ESCORT LESLIE
--- NOTE | 2021-09-04 18:40 | PN.HOSP_ITS ---
Subjective Subjective Patient was seen and examined today, he does not appear in any respiratory distress, he is on 4 L of oxygen via nasal cannula at this time. Arrangements are being made for transportation of the patient to a skilled nursing at 10 AM tomorrow morning, I have already completed the discharge paperwork for the patient. Objective Data Objective Data Vital Signs: Vital Signs Temp Pulse Resp BP Pulse Ox 97.7 F L 79 16 112/66 98 09/04/21 16:31 09/04/21 16:31 09/04/21 16:31 09/04/21 16:31 09/04/21 16:31 Oxygen Flow Rate (L/min) [4] 15 Oxygen Flow Rate (L/min) [3] 15 Oxygen Flow Rate (L/min) [2] 15 Oxygen Flow Rate (L/min) [1 ( 15 Initial Baseline)] Oxygen Flow Rate (L/min) [3] 8 Oxygen Flow Rate (L/min) [2] 8 Oxygen Flow Rate (L/min) [1 ( 8 Initial Baseline)] Oxygen Flow Rate (L/min) 4 Oxygen Delivery Method [4] High Flow Oxygen Delivery Method [3] High Flow Oxygen Delivery Method [2] High Flow Oxygen Delivery Method [1 ( High Flow Initial Baseline)] Oxygen Delivery Method [3] Nasal Cannula Oxygen Delivery Method [2] Nasal Cannula Oxygen Delivery Method [1 ( Nasal Cannula Initial Baseline)] Oxygen Delivery Method Nasal Cannula Weight: 47.6 kg Body Mass Index (BMI) 17.6 Intake & Output: Intake and Output for Last 24 Hours 09/02/21 09/03/21 09/04/21 23:59 23:59 23:59 Intake Total 1502 / 2583 3029 / 3438 1358 / 1358 Output Total 700 / 1350 750 / 750 450 / 450 Balance 802 / 1233 2279 / 2688 908 / 908 Medical Nutrition Assessment Dietitian: Malnutrition Criteria Met Start: 08/14/21 10:16 Freq: Status: Active Protocol: Document 09/03/21 15:20 ELLEN (Rec: 09/03/21 15:20 ELLEN [id number]) Nutrition Malnutrition Evidence of Malnutrition Exists Yes Malnutrition (severe): Chronic Evidenced By Suboptimal Energy Intake ( Severe),Weight Loss (Severe), Physical Changes (Severe) Clinical Problem Chronic Disease or Condition Related Malnutrition Etiology severe, chronic malnutrition r /t inadequate energy intake d/ t swallowing difficulty, increased energy needs d/t chronic resp. failure Signs/Symptoms as evidenced by estimated PO intake meeting <75% of estimated energy needs >3 months; obvious signs of severe muscle/fat wasting in the face, orbital and temporal regions per physical exam; BMI 15.4; wt loss of 16% <2 weeks Status Active Problem Recommendation Dietitian Recommendations/Changes 1) Will continue Jevity 1.5 via PEG to 50mL/hour w/ 150mL H2O flush every 4 hours to provide 1800 calories, 76 g protein, and 1812mL fluid/day. Will monitor fluid status and labs and adjust flushes as appropriate. 2) Daily wts. Recommend close monitoring of electrolytes given risk for refeeding syndrome. Lab / Micro Data Result Diagrams: 08/31/21 05:45 09/03/21 05:45 Micro: Microbiology 08/13/21 10:45 Stool Stool Occult Blood (LU) - Final 08/14/21 Unknown Fluid - Thoracentesis Fluid Gram Stain - Final 08/14/21 Unknown Fluid - Thoracentesis Fluid Body Fluid Culture - Final No growth aerobically. 08/14/21 Unknown Fluid - Thoracentesis Fluid Anaerobic Culture - Final No growth in 5 days. 08/14/21 01:10 Blood Culture (Wb) - Left Hand Blood Culture - Final No growth in 5 days. 08/14/21 01:02 Blood Culture (Wb) - Anticubital Right Blood Culture - Final No growth in 5 days. 08/13/21 21:00 Urine, Clean Catch Legionella Antigen - Final 08/13/21 21:00 Urine, Clean Catch Streptococcus pneumoniae Antigen (M - Final 08/13/21 18:30 Sputum, Induced/Lukens Gram Stain - Final 08/13/21 18:30 Sputum, Induced/Lukens Respiratory Culture - Final Klebsiella pneumoniae sp pneum Gram positive joann 08/13/21 17:51 Mucosa - Nose Influenza Types A,B Direct FA (LU) - Final Physical Exam Narrative Constitutional Narrative: Patient appears frail and unwell General Appearance: cooperative, well kempt and well developed Orientation / Consciousness: awake, oriented to person, oriented to place Exam Limitations: physical limitations Nutritional Appearance: cachectic HEENT normocephalic, head/scalp atraumatic and moist oral mucous membranes Eyes PERRL, EOMs intact bilaterally and conjunctivae normal Neck nuchal rigidity, no lymphadenopathy, supple, no JVD, thyroid normal and no carotid bruits General: trachea midline Resp normal respiratory effort, no retractions and no use of accessory muscles Resp Narrative: Decreased breath sounds are noted over the left lower lung field Auscultation: diminished lung sounds; Negative for crackles, rales, rhonchi or wheezes Cardio regular rate, regular rhythm, S1 normal heart sound, S2 normal heart sound, no murmurs, no rub and no gallops GI normal to inspection, nondistended, normoactive bowel sounds, soft to palpation, non-tender and non-distended; Negative for hepatosplenomegaly GI Narrative: PEG tube is in place Extremity normal to inspection, full ROM and no clubbing, cyanosis or edema Skin no rashes or lesions noted and no wounds General Skin Exam: no breakdown Neuro oriented x3, CN's II-XII intact bilaterally, moves all extremities, no focal motor deficits and no sensory deficits noted Sensorium / Orientation: awake and alert Speech: speech normal Psych Narrative: Patient has flat affect, he appears appropriate Mood & Affect: flat affect Assessment & Plan Assessment/Plan (1) Depression: (2) Debility: (3) COPD (chronic obstructive pulmonary disease): (4) Chronic respiratory failure: (5) Recurrent left pleural effusion: (6) Dysphagia: (7) Malnutrition: PLAN: 1. Acute combined on chronic hypoxic respiratory failure secondary to Klebsiella pneumonia and left pleural effusion-pulmonary medicine is participating in the patient's care, continue bronchodilators, patient has currently finished a course of antibiotics. Patient has been more compliant with wearing AVAPS with his trach cuff inflated. His oxygen requirement has decreased today to 4 L via nasal cannula. No changes in medication today. Again, it is planned that the patient will be discharged tomorrow at 10 AM to a local extended care facility as long as his oxygen requirements do not markedly increase. #2 severe protein and caloric malnutrition-continue PEG tube feedings per nutritional services, nutritional services is following #3 oropharyngeal dysphagia-patient is n.p.o. at this time, continue PEG tube feedings, speech therapy is working with the patient #4 severe debility-patient will need continued rehab services in a intermediate facility at the time of discharge, due to his oxygen requirement at this time, patient appears stable for transfer to intermediate facility at this time due to his lowered oxygen requirement today, the skilled nursing will not be able to take him however until tomorrow morning at 10 AM. #5 left pleural effusion-according to pulmonary medicine, this is improved with use of diuretics, no thoracentesis is indicated at this time #6 chronic obstructive pulmonary disease-patient will continue on aerosol treatments #7 Central sleep apnea-patient will need to comply with AVAPS through his trach- according to nursing he is compliant Prognosis is poor at this time due to patient's multiple medical problems and la ck of compliance at times. Patient remains a DNR CC arrest no intubation. Charges/Coding Visit Charges Inpatient E&M: 87789 Subs Hosp L2
[2021-09-04] MEDS: busPIRone 15 MG TABLET PO (22:49)
[2021-09-05] VITALS (9 sets, daily range): BP systolic 108; BP diastolic 74; PULSE 88–104; RESP 14–25; TEMP 36.4; O2SAT 92–100
[2021-09-05] MEDS: Ipratropium/Albuterol Sulfate 3 ML AMPUL.NEB INHALATION (07:42)
--- NOTE | 2021-09-05 07:59 | PN.CC_ITS ---
Assessment & Plan Assessment/Plan (1) Pleural effusion, right: PLAN: RECOMMENDATIONS: 1. Continue AVAPS therapy via trach with naps and nightly. 2. Wean supplemental oxygen to maintain saturations at or above 90%. 3. Continue nutritional support via PEG tube. 4. Continue aggressive bronchopulmonary hygiene. 5. Continue scheduled bronchodilators. 6. Continue intermittent diuresis as tolerated by hemodynamics and renal function. IMPRESSIONS: 1. Acute combined on chronic hypoxemic respiratory failure secondary to Klebsiella pneumonia and pleural effusion The patient has a baseline medical history including COPD and chronic hypoxemic respiratory failure. Plan to continue supportive measures including aggressive bronchopulmonary hygiene and supplemental oxygen for saturations greater than 90%. The patient has completed a treatment course of antimicrobials. The patient's oxygenation status has improved in light of his compliance with NIV therapy. Continue diuretic therapy intermittently as tolerated by hemodynamics and renal function. 2. Recent prolonged hospitalization with empyema leading to tracheostomy and PEG Continue supportive measures as noted above. Speech therapy following as modified barium swallow revealed evidence of aspiration. Continue nutritional support via PEG tube. 3. History of COPD/paroxysmal atrial fibrillation/malnutrition/history of alcohol and tobacco dependency Complicates care, management, recovery and prognosis. Continue supportive measures as noted above. Physical therapy to work with the patient. This note was generated with evly dictation software. It may contain incorrect words, spelling, and punctuation that were not noted in checking the note before signing. Subjective Subjective The patient was seen and examined at the bedside this morning. Events from the last 24 hours have been reviewed. The patient is currently afebrile, hemod ynamically stable and maintaining appropriate oxygen saturations on 40% trach collar. The patient is documented to be overall net +13.2 L for the hospitalization. No overnight issues were identified by the nursing staff. Objective Data Objective Data The patient's most recent lab work, culture data and imaging studies have all been personally reviewed. Surface echocardiogram from February 2021 demonstrated normal LV size and function with an ejection fraction of 50% and a pulmonary artery systolic pressure estimated to be 50 mmHg. Sputum culture dated August 13 was positive for Klebsiella pneumoniae. Vital Signs: Vital Signs Temp Pulse Resp BP Pulse Ox 97.6 F L 98 14 108/74 100 09/05/21 04:48 09/05/21 07:42 09/05/21 07:42 09/05/21 04:48 09/05/21 07:42 Oxygen Flow Rate (L/min) [4] 15 Oxygen Flow Rate (L/min) [3] 15 Oxygen Flow Rate (L/min) [2] 15 Oxygen Flow Rate (L/min) [1 ( 15 Initial Baseline)] Oxygen Flow Rate (L/min) [3] 8 Oxygen Flow Rate (L/min) [2] 8 Oxygen Flow Rate (L/min) [1 ( 8 Initial Baseline)] Oxygen Flow Rate (L/min) 40 Oxygen Delivery Method [4] High Flow Oxygen Delivery Method [3] High Flow Oxygen Delivery Method [2] High Flow Oxygen Delivery Method [1 ( High Flow Initial Baseline)] Oxygen Delivery Method [3] Nasal Cannula Oxygen Delivery Method [2] Nasal Cannula Oxygen Delivery Method [1 ( Nasal Cannula Initial Baseline)] Oxygen Delivery Method Trach Collar Weight: 47.6 kg Body Mass Index (BMI) 17.6 Intake & Output: Intake and Output for Last 24 Hours 09/03/21 09/04/21 09/05/21 23:59 23:59 23:59 Intake Total 3029 / 3438 1785 / 1785 711 / 711 Output Total 750 / 750 550 / 550 150 / 150 Balance 2279 / 2688 1235 / 1235 561 / 561 Medical Nutrition Assessment Dietitian: Malnutrition Criteria Met Start: 08/14/21 10:16 Freq: Status: Active Protocol: Document 09/03/21 15:20 ELLEN (Rec: 09/03/21 15:20 [facility] [id number]) Nutrition Malnutrition Evidence of Malnutrition Exists Yes Malnutrition (severe): Chronic Evidenced By Suboptimal Energy Intake ( Severe),Weight Loss (Severe), Physical Changes (Severe) Clinical Problem Chronic Disease or Condition Related Malnutrition Etiology severe, chronic malnutrition r /t inadequate energy intake d/ t swallowing difficulty, increased energy needs d/t chronic resp. failure Signs/Symptoms as evidenced by estimated PO intake meeting <75% of estimated energy needs >3 months; obvious signs of severe muscle/fat wasting in the face, orbital and temporal regions per physical exam; BMI 15.4; wt loss of 16% <2 weeks Status Active Problem Recommendation Dietitian Recommendations/Changes 1) Will continue Jevity 1.5 via PEG to 50mL/hour w/ 150mL H2O flush every 4 hours to provide 1800 calories, 76 g protein, and 1812mL fluid/day. Will monitor fluid status and labs and adjust flushes as appropriate. 2) Daily wts. Recommend close monitoring of electrolytes given risk for refeeding syndrome. Lab / Micro Data Result Diagrams: 08/31/21 05:45 09/03/21 05:45 Micro: Microbiology 08/13/21 10:45 Stool Stool Occult Blood (LU) - Final 08/14/21 Unknown Fluid - Thoracentesis Fluid Gram Stain - Final 08/14/21 Unknown Fluid - Thoracentesis Fluid Body Fluid Culture - Final No growth aerobically. 08/14/21 Unknown Fluid - Thoracentesis Fluid Anaerobic Culture - Final No growth in 5 days. 08/14/21 01:10 Blood Culture (Wb) - Left Hand Blood Culture - Final No growth in 5 days. 08/14/21 01:02 Blood Culture (Wb) - Anticubital Right Blood Culture - Final No growth in 5 days. 08/13/21 21:00 Urine, Clean Catch Legionella Antigen - Final 08/13/21 21:00 Urine, Clean Catch Streptococcus pneumoniae Antigen (M - Final 08/13/21 18:30 Sputum, Induced/Lukens Gram Stain - Final 08/13/21 18:30 Sputum, Induced/Lukens Respiratory Culture - Final Klebsiella pneumoniae sp pneum Gram positive joann 08/13/21 17:51 Mucosa - Nose Influenza Types A,B Direct FA (LU) - Final Physical Exam Const alert and no apparent distress General Appearance: cooperative Nutritional Appearance: thin HEENT normocephalic and head/scalp atraumatic Eyes PERRL and EOMs intact bilaterally Neck supple Neck Narrative: Tracheostomy site is C/D/I. General: trachea midline Chest inspection of chest normal Resp Auscultation: diminished lung sounds; Negative for rales, rhonchi or wheezes Cardio regular rate and regular rhythm GI normal to inspection, nondistended, normoactive bowel sounds Inspection: GI tube present Extremity no clubbing, cyanosis or edema Skin no rashes or lesions noted Neuro CN's II-XII intact bilaterally and no focal motor deficits Psych Mood & Affect: flat affect Charges/Coding Visit Charges Inpatient E&M: 80451 Subs Hosp L2
--- NOTE | 2021-09-05 08:54 | CASEMGMT ---
Addendum entered by Rachel Rubalcava 09/05/21 09:03: SW spoke with patient this am and he is in agreement with going still. SW wished patient well and told him to keep up the good work as the last several days patient has been cooperating with care. Rachel NELSON Original Note: PILI faxed updated med list to [facility]. Copies of orders were made and placed in chart. PASRR was completed in [facility]. [facility] will pickle solution maker at 10a via cot. PILI called [facility] and left a message with medical assistant secretary for Melissa in admissions that patient is coming today at 10a. PILI let medical assistant secretary know that PILI notified respiratory therapist yesterday. Plan: d/c to [facility] under intermediate level of care on a PASRR. [facility] transported via cot. Rachel NELSON
--- NOTE | 2021-09-05 09:09 | NURSING ---
Report called to nurse Monica for pt to be d/c to [facility]
[2021-09-05] MEDS: Famotidine 20 MG Tablet PO (09:20)
[2021-09-05] MEDS: Potassium Chloride Oral Soln 20 MEQ/15 ML UDC 40 MEQ GT (09:20)
[2021-09-05] MEDS: Sertraline 100 MG Tablet 150 MG PO (09:20)
[2021-09-05] MEDS: Acetaminophen 325 MG Tablet 650 MG PO (09:21)
[2021-09-05] MEDS: busPIRone 15 MG TABLET PO (09:23)
--- NOTE | 2021-09-05 09:26 | CASEMGMT ---
SW did fax PASRR, level of care, and negative COVID test to [facility]. 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
--- NOTE | 2021-09-05 11:53 | PCM.DC.SUM ---
Providers Date of Admission: 08/13/21 Date of Discharge: 09/05/21 Primary Care Physician: Dr. Aleyda Ny MD Consultations 08/13/21 18:02 Consult: Rn Bariatric / Pulmonary Medicine Routine Consulting Provider: [facility] Reason for Consult: acute on chr resp failure, Large left effusion EMERGENT Consult: No MD Notified: Yes Date Notified: 08/13/21 Time Notified: 15:31 Method of Notification: Verbal Reason For Visit: ACUTE ON CHRONIC RESP FAILURE Diagnosis Discharge Diagnosis (1) Pleural effusion, right: Status: Acute Code(s): J90 - Pleural effusion, not elsewhere classified (2) Acute on chronic respiratory failure with hypoxia and hypercapnia: Status: Chronic Code(s): J96.21 - Acute and chronic respiratory failure with hypoxia; J96.22 - Acute and chronic respiratory failure with hypercapnia (3) Metabolic encephalopathy: Status: Acute Code(s): G93.41 - Metabolic encephalopathy Medications at Discharge Home Medications albuterol sulfate 90 mcg/actuation aerosol inhaler 2 puff INHALATION Q4H PRN #8.5 g 05/23/20 buspirone 15 mg PO TID PRN 07/27/21 famotidine 20 mg PO BID 07/27/21 loperamide 2 mg PO Q6H PRN 07/27/21 acetaminophen [Tylenol] 650 mg PO Q4H PRN PRN #0 tab 08/08/21 enoxaparin 30 mg SUBCUT DAILY #0 ml 08/08/21 guaifenesin 200 mg PO Q4H PRN 08/13/21 ipratropium-albuterol 3 ml INHALATION Q6HWA.RT #0 ml 09/03/21 potassium chloride 40 meq G-TUBE DAILY #0 ml 09/03/21 sertraline 150 mg PO DAILY #0 tab 09/03/21 Hospital Course Operations None Procedures Thoracentesis (X2) and - (Modified barium swallow) Summary of Care Provided Minutes Spent on Discharge: 45 Hospital Course: Mr. Christensen is a 70-year-old white male who is well-known to this institution due to recurrent hospitalizations with acute on chronic hypercapnic and hypoxic respiratory failure who presented to the emergency department at [facility] on 08/15/2021 with acute hypoxia. Evidently per EMS the patient was cyanotic and his pulse ox dropped to 42% on 10 L of oxygen through nasal cannula. The patient was placed on a nonrebreather and his sats improved to 93%. On admission he denied any chest pain, fever, or chills. He indicated he had a chronic cough with clear sputum that had recently gotten worse. He had recently been discharged on a modified diet and this was being given to him at the nursing facility. In addition to the hypoxia he was markedly tachypneic and hypertensive. His CBC was overall unremarkable compared to baseline as were his chemistries. His chest x-ray showed a worsening left-sided effusion and the patient was admitted to the intensive care for further care and evaluation. The patient required multiple episodes of suctioning and was able to be weaned to 3 to 5 L via trach mask after admission. He was also placed on antibiotics for suspected aspiration. Was recommended he continue AVAPS mode of oxygenation and ventilation at night and with naps and have a thoracentesis performed as well as continue empiric antibiotics. The patient has been known to be noncompliant with aerosol treatments and rhonchal pulmonary hygiene in the past and it was reiterated to him the importance of compliance. He was able to be transferred from the intensive care unit on 08/14/2021. We had continued issues with compliance during his hospitalization including suctioning and bronchopulmonary hygiene. A left-sided thoracentesis was performed on 08/14/2021 at which time 1170 cc was drained and sent to the lab. The findings were consistent with a transudate of effusion and it was felt that this was likely related to his chronic pulmonary issues along with his chronic severe malnutrition. A repeat thoracentesis was required on 08/17/2021 at which time 1200 cc of fluid was removed. Given concern for chronic aspiration a modified barium swallow was repeated and showed severe oropharyngeal phase dysphagia at which time the patient was recommended to remain n.p.o. and continue all nutrition via his PEG tube. He was cleared for [place] free protocol with only the assistance of nursing staff and close monitoring of his oxygenation with trials. It was recommended he follow-up with speech therapy as well as physical and occupational therapy after discharge. His sputum cultures did result with Klebsiella pneumonia. His oxygen needs fluctuated during his hospitalization but prior to discharge we were able to wean him to 4-1/2 L via nasal cannula or 40% via trach mask and AVAPS with nocturnal ventilation and ventilation with naps. Overall varus were significantly impacted in his care with his repeated refusals for suctioning and bronchodilator therapy. He did complete a course of antimicrobials for aspiration pneumonia during his hospitalization and overall his oxygen status did improve as his compliance with noninvasive therapy improved. He was able to be finally discharged in stable condition on 09/05/2021 to the [facility] in [place] for continued AVAPS at night and during the day with naps as well as continued therapy services and bronchodilator therapy and aggressive hygiene. The patient is high risk for further decompensation given his history of noncompliance and his overall general health. Discharge diagnoses: Acute on chronic hypoxic and hypercapnic respiratory failure Aspiration pneumonia Klebsiella pneumonia Recurrent pleural effusion Severe malnutrition COPD PAF Recent prolonged hospitalization with empyema leading to tracheostomy and PEG placement Severe debility Oropharyngeal dysphagia Central sleep apnea Depression Anxiety Physical Exam Const alert, oriented x3 and no apparent distress Constitutional Narrative: Extremely thin upper middle-aged white male sitting up in bed, appears much older than stated age, appears comfortable and nontoxic at this time, trach with cap in place and vocalizes well General Appearance: cooperative, comfortable, well kempt and well developed Orientation / Consciousness: awake Exam Limitations: no limitations HEENT normocephalic, head/scalp atraumatic and moist oral mucous membranes HEENT Narrative: Mallampati is 1-2, no thrush is present Eyes PERRL and EOMs intact bilaterally; Negative for conjunctivae normal Eyes Narrative: Mildly pale conjunctiva, no scleral icterus Neck no lymphadenopathy, supple and no JVD Neck Narrative: Trachea Midline with Trach in Place and capped Resp normal respiratory effort, no retractions, no use of accessory muscles and clear to auscultation bilaterally Resp Narrative: Diffusely diminished but no significant adventitious sounds Cardio regular rate, regular rhythm, S1 normal heart sound, S2 normal heart sound, no gallops and no clicks GI normal to inspection, nondistended, normoactive bowel sounds, soft to palpation, non-tender and non-distended GI Narrative: Scaphoid abdomen, PEG tube in place left upper quadrant-clean and dry Extremity no clubbing, cyanosis or edema Extremity Narrative: Markedly diminished lean muscle mass Skin no rashes or lesions noted, no wounds, skin turgor normal and no jaundice Neuro oriented x3, CN's II-XII intact bilaterally, moves all extremities and no focal motor deficits Neuro Narrative: Marked generalized weakness Sensorium / Orientation: awake and alert Psych affect normal Weight / BMI Weight Weight: 47.6 kg Body Mass Index (BMI) 17.6 ABG / Lab / Microbiology Data Result Diagrams: 08/31/21 05:45 09/03/21 05:45 Microbiology: Microbiology 09/05/21 08:30 Nasal Secretion SARS-CoV-2 Antigen (Rapid) - Final 08/13/21 10:45 Stool Stool Occult Blood (LU) - Final 08/14/21 Unknown Fluid - Thoracentesis Fluid Gram Stain - Final 08/14/21 Unknown Fluid - Thoracentesis Fluid Body Fluid Culture - Final No growth aerobically. 08/14/21 Unknown Fluid - Thoracentesis Fluid Anaerobic Culture - Final No growth in 5 days. 08/14/21 01:10 Blood Culture (Wb) - Left Hand Blood Culture - Final No growth in 5 days. 08/14/21 01:02 Blood Culture (Wb) - Anticubital Right Blood Culture - Final No growth in 5 days. 08/13/21 21:00 Urine, Clean Catch Legionella Antigen - Final 08/13/21 21:00 Urine, Clean Catch Streptococcus pneumoniae Antigen (M - Final 08/13/21 18:30 Sputum, Induced/Lukens Gram Stain - Final 08/13/21 18:30 Sputum, Induced/Lukens Respiratory Culture - Final Klebsiella pneumoniae sp pneum Gram positive joann 08/13/21 17:51 Mucosa - Nose Influenza Types A,B Direct FA (LU) - Final Meaningful Use Info Meaningful Use Diagnoses (Choose all that apply): None applicable Discharge Plan Admission Admit Date/Time: 08/13/21 14:54 Primary Reason for Your Visit: respiratory failure Attending Provider: Laurie Ivory Primary Care Provider: Aleyda Ny Consulting Providers: Evens Vasquez ; Gerard Gibbs ; Rosmery Fish [employer] Instructions Additional Instructions / Restrictions: Jevity 1.5 at 60 ml/hr continuous Use AVAPS through the trach when sleeping and at night-setting: Rate of 14, FiO2 0.3 Discharge Orders/Prescriptions Prescriptions: New ipratropium-albuterol 0.5 mg-3 mg(2.5 mg base)/3 mL Solution For Nebulization 3 ml inhalation Q6HWA.RT Qty: 0 RF: 0 sertraline 100 mg Tablet 150 mg PO DAILY Qty: 0 RF: 0 potassium chloride 20 mEq/15 mL Liquid 40 meq G-tube DAILY Qty: 0 RF: 0 Continued albuterol sulfate 90 mcg/actuation HFA aerosol inhaler 2 puff INHALATION Q4H PRN (Reason: shortness of breath or wheezing) Qty: 8.5 RF: 6 loperamide 2 mg Capsule 2 mg PO Q6H PRN (Reason: Diarrhea) RF: 0 famotidine 20 mg Tablet 20 mg PO BID RF: 0 buspirone 15 mg Tablet 15 mg PO TID PRN (Reason: Anxiety) RF: 0 acetaminophen [Tylenol] 325 mg Tablet 650 mg PO Q4H PRN PRN (Reason: Fever, pain -04/08) Qty: 0 RF: 0 enoxaparin 40 mg/0.4 mL Syringe 30 mg SUBCUT DAILY Qty: 0 RF: 0 guaifenesin 100 mg/5 mL Liquid 200 mg PO Q4H PRN (Reason: Cough) RF: 0 Discontinued mirtazapine [Remeron] 15 mg Tablet 7.5 mg PO QHS RF: 0 guaifenesin 50 mg/5 mL Liquid 200 mg PO Q4H PRN (Reason: cough) RF: 0 magnesium oxide 400 mg magnesium Tablet 400 mg PO DAILY RF: 0 sertraline 50 mg Tablet 50 mg PO DAILY Qty: 0 RF: 0 Jevity 1.5 Gamal 0.06 gram-1.5 kcal/mL Liquid 250 ml G-tube TIDPC Qty: 0 RF: 0 potassium, sodium phosphates 280-160-250 mg Powder In Packet 1 packet G-tube TID Qty: 6 RF: 0 Referrals / Follow Up: Aleyda Ny MD [Primary Care Provider] - Disposition Disposition (needs filled in before D/C Order can be placed): [facility] Facility Charges/Coding Visit Charges Inpatient E&M: 08275 SNF Disch >30 Min
== END 2021-09-05 10:15 | disposition skilled nursing facility (03) | DRG 186 ==
LOC: ED 14:43 → ICU 08-14 05:05 → PCU 08-14 13:26
PROVIDERS: Family Medicine; Internal Medicine Critical Care Medicine; Student in an Organized Health Care Education/Training Program; Admitting Provider Internal Medicine; Emergency Provider Emergency Medicine; PCP Internal Medicine; Visit Provider Internal Medicine
DX: J90 Pleural effusion, not elsewhere classified (principal); J15.0 Pneumonia due to Klebsiella pneumoniae; J96.21 Acute and chronic respiratory failure with hypoxia; J69.0 Pneumonitis due to inhalation of food and vomit; G93.41 Metabolic encephalopathy; E43 Unspecified severe protein-calorie malnutrition; J96.22 Acute and chronic respiratory failure with hypercapnia; J44.0 Chronic obstructive pulmonary disease with (acute) lower respiratory infection; E87.1 Hypo-osmolality and hyponatremia; Z68.1 Body mass index [BMI] 19.9 or less, adult; I48.0 Paroxysmal atrial fibrillation; Z93.0 Tracheostomy status; Z93.1 Gastrostomy status; I10 Essential (primary) hypertension; F41.9 Anxiety disorder, unspecified; D64.9 Anemia, unspecified; G47.31 Primary central sleep apnea; F10.10 Alcohol abuse, uncomplicated; Z79.899 Other long term (current) drug therapy; Z87.891 Personal history of nicotine dependence; F32.A Depression, unspecified; R13.12 Dysphagia, oropharyngeal phase; R53.81 Other malaise; Z91.19 Patient's noncompliance with other medical treatment and regimen; Z51.5 Encounter for palliative care; Z66 Do not resuscitate
CPT/HCPCS: 31720; 32555; 36415; 71045; 71046; 74230; 80048; 82274; 82945; 83605; 83615; 83735; 83880; 84100; 84156; 84157; 85025; 87040; 87070; 87075; 87077; 87186; 87205; 87426; 87449; 87641; 87804; 88108; 88305; 88313; 88341; 88342; 89050; 92507; 92526; 92610; 92611; 93005; 94002; 94003; 94640; 94667; 94668; 94762; 97110; 97162; 97166; 97530; 97535; 97802; 97803; 99251; 99285; 99406; J7040; J7050; A4216; G0463; J1940

== ENCOUNTER → 2021-09-24 | Outpatient (REF) | payer MEDICARE, MEDICAID, SELFPAY ==
[2021-09-24 08:25] LABS: Hemoglobin 9.6 g/dL (13.0-16.5); Mean Corp Hgb Conc 33.1 g/dL (32-36); Mean Corpuscular Hgb 31.8 pg (27.0-32.0); Mean Platelet Vol. 10.3 fl (6.2-12.0); Platelet Count 276 K/mm3 (150-450); RBC Distribution Width CV 13.8 % (11.6-14.6); RBC Distribution Width SD 49.1 fl (35.1-43.9); Red Blood Count 3.02 M/mm3 (4.6-6.2); White Blood Count 5.4 K/mm3 (4.4-11.0)
[2021-09-24 08:51] LABS: ALB/GLOB Ratio 0.6 RATIO (0.9-2.4); AST(SGOT) 30 U/L (15-37); Alanine Aminotransfer ALT/SGPT 44 U/L (16-61); Albumin, Serum 2.3 g/dL (3.2-5.0); Alkaline Phosphatase 93 U/L (45-117); Anion Gap 5 (5-15); BUN 29 mg/dL (7-18); BUN/Creat Ratio 41.8 RATIO (10-20); Calcium,Total 8.3 mg/dL (8.5-10.1); Chloride 103 mmol/L (98-107); Creatinine, Serum 0.69 mg/dL (0.70-1.30); EST Glomerular Filtration Rate 120 mL/min (>60); Est Glom Filt Rate - Afr Amer 145 mL/min (>60); Globulin 3.6 g/dL (2.2-4.2); Glucose 114 mg/dL (74-106); Potassium 4.2 mmol/L (3.5-5.1); Protein, Total 5.9 g/dL (6.4-8.2); Sodium Level 138 mmol/L (136-145); Thyroid Stim Hormone (TSH) 2.98 uIU/mL (0.358-3.74)
== END | disposition home or self-care (01) ==
LOC: OLS.SANC 05:00
PROVIDERS: PCP Internal Medicine; Visit Provider Internal Medicine
DX: I10 Essential (primary) hypertension (principal); J44.9 Chronic obstructive pulmonary disease, unspecified
CPT/HCPCS: 36415; 80053; 84443; 85027

== ENCOUNTER → 2021-10-01 | Outpatient (REF) | payer MEDICARE, MEDICAID, SELFPAY ==
[2021-10-01 09:50] LABS: Hematocrit 28.4 % (40-54); Mean Corp Hgb Conc 31.7 g/dL (32-36); Mean Corpuscular Hgb 30.6 pg (27.0-32.0); Mean Corpuscular Volume 96.6 fL (80-94); Mean Platelet Vol. 10.4 fl (6.2-12.0); Platelet Count 219 K/mm3 (150-450); RBC Distribution Width CV 13.5 % (11.6-14.6); RBC Distribution Width SD 48.2 fl (35.1-43.9); Red Blood Count 2.94 M/mm3 (4.6-6.2); White Blood Count 4.4 K/mm3 (4.4-11.0)
[2021-10-01 10:11] LABS: Anion Gap -1 (5-15); BUN 24 mg/dL (7-18); BUN/Creat Ratio 42.9 RATIO (10-20); Calcium,Total 8.9 mg/dL (8.5-10.1); Chloride 101 mmol/L (98-107); Creatinine, Serum 0.56 mg/dL (0.70-1.30); EST Glomerular Filtration Rate 154 mL/min (>60); Est Glom Filt Rate - Afr Amer 186 mL/min (>60); Glucose 107 mg/dL (74-106); Potassium 4.9 mmol/L (3.5-5.1); Sodium Level 136 mmol/L (136-145)
== END | disposition home or self-care (01) ==
LOC: OLS.SANC 04:00
PROVIDERS: PCP Internal Medicine; Referring Provider Internal Medicine; Visit Provider Internal Medicine
DX: J96.21 Acute and chronic respiratory failure with hypoxia (principal); G93.41 Metabolic encephalopathy
CPT/HCPCS: 36415; 80048; 85027

== ENCOUNTER → 2021-10-17 | Outpatient (REF) | payer MEDICARE, MEDICAID, SELFPAY ==
[2021-10-17 10:08] LABS: Hemoglobin 9.7 g/dL (13.0-16.5); Mean Corp Hgb Conc 32.3 g/dL (32-36); Mean Corpuscular Volume 95.8 fL (80-94); Mean Platelet Vol. 9.8 fl (6.2-12.0); Platelet Count 453 K/mm3 (150-450); RBC Distribution Width CV 13.9 % (11.6-14.6); RBC Distribution Width SD 48.7 fl (35.1-43.9); Red Blood Count 3.13 M/mm3 (4.6-6.2); White Blood Count 7.5 K/mm3 (4.4-11.0)
[2021-10-17 10:30] LABS: ALB/GLOB Ratio 0.5 RATIO (0.9-2.4); AST(SGOT) 25 U/L (15-37); Alanine Aminotransfer ALT/SGPT 28 U/L (16-61); Albumin, Serum 2.4 g/dL (3.2-5.0); Alkaline Phosphatase 94 U/L (45-117); Anion Gap 6 (5-15); BUN 27 mg/dL (7-18); BUN/Creat Ratio 29.6 RATIO (10-20); Calcium,Total 8.9 mg/dL (8.5-10.1); Chloride 101 mmol/L (98-107); Creatinine, Serum 0.91 mg/dL (0.70-1.30); EST Glomerular Filtration Rate 88 mL/min (>60); Est Glom Filt Rate - Afr Amer 106 mL/min (>60); Globulin 4.4 g/dL (2.2-4.2); Glucose 112 mg/dL (74-106); Potassium 4.5 mmol/L (3.5-5.1); Protein, Total 6.8 g/dL (6.4-8.2); Sodium Level 136 mmol/L (136-145)
== END | disposition home or self-care (01) ==
LOC: OLS.SANC 07:20
PROVIDERS: PCP Internal Medicine; Visit Provider Internal Medicine
DX: I10 Essential (primary) hypertension (principal); J44.9 Chronic obstructive pulmonary disease, unspecified
CPT/HCPCS: 36415; 80053; 85027

== ENCOUNTER → 2021-11-14 | Outpatient (REF) | payer MEDICARE, MEDICAID, SELFPAY ==
[2021-11-14 09:21] LABS: Hematocrit 25.4 % (40-54); Hemoglobin 8.1 g/dL (13.0-16.5); Mean Corp Hgb Conc 31.9 g/dL (32-36); Mean Corpuscular Hgb 31.4 pg (27.0-32.0); Mean Corpuscular Volume 98.4 fL (80-94); Mean Platelet Vol. 9.6 fl (6.2-12.0); Platelet Count 325 K/mm3 (150-450); RBC Distribution Width CV 13.2 % (11.6-14.6); RBC Distribution Width SD 47.9 fl (35.1-43.9); Red Blood Count 2.58 M/mm3 (4.6-6.2); White Blood Count 6.7 K/mm3 (4.4-11.0)
[2021-11-14 09:37] LABS: Anion Gap 6 (5-15); BUN 31 mg/dL (7-18); BUN/Creat Ratio 38.3 RATIO (10-20); Calcium,Total 9.3 mg/dL (8.5-10.1); Chloride 103 mmol/L (98-107); Creatinine, Serum 0.81 mg/dL (0.70-1.30); EST Glomerular Filtration Rate 100 mL/min (>60); Est Glom Filt Rate - Afr Amer 121 mL/min (>60); Glucose 109 mg/dL (74-106); Potassium 4.4 mmol/L (3.5-5.1); Sodium Level 138 mmol/L (136-145)
== END | disposition home or self-care (01) ==
LOC: OLS.SANC 05:00
PROVIDERS: PCP Internal Medicine; Visit Provider Internal Medicine
DX: I10 Essential (primary) hypertension (principal); N40.0 Benign prostatic hyperplasia without lower urinary tract symptoms
CPT/HCPCS: 36415; 80048; 85027

== ENCOUNTER → 2021-11-16 | Outpatient (REF) | payer MEDICARE, MEDICAID, SELFPAY | END | disposition home or self-care (01) | LOC: OLS.SANC 14:30 | PROVIDERS: PCP Internal Medicine | DX: R09.3 Abnormal sputum (principal) | CPT/HCPCS: 87070; 87077; 87186; 87205 ==

== ENCOUNTER → 2021-11-21 | Outpatient (REF) | payer MEDICARE, MEDICAID, SELFPAY ==
[2021-11-21 08:01] LABS: Hematocrit 24.5 % (40-54); Hemoglobin 7.7 g/dL (13.0-16.5); Mean Corp Hgb Conc 31.4 g/dL (32-36); Mean Corpuscular Hgb 31.4 pg (27.0-32.0); Mean Platelet Vol. 9.5 fl (6.2-12.0); Platelet Count 313 K/mm3 (150-450); RBC Distribution Width SD 50.6 fl (35.1-43.9); Red Blood Count 2.45 M/mm3 (4.6-6.2); White Blood Count 8.7 K/mm3 (4.4-11.0)
[2021-11-21 08:15] LABS: Anion Gap 4 (5-15); BUN 33 mg/dL (7-18); BUN/Creat Ratio 44.8 RATIO (10-20); Calcium,Total 8.6 mg/dL (8.5-10.1); Chloride 103 mmol/L (98-107); Creatinine, Serum 0.74 mg/dL (0.70-1.30); EST Glomerular Filtration Rate 112 mL/min (>60); Est Glom Filt Rate - Afr Amer 135 mL/min (>60); Glucose 100 mg/dL (74-106); Potassium 4.6 mmol/L (3.5-5.1); Sodium Level 137 mmol/L (136-145)
== END | disposition home or self-care (01) ==
LOC: OLS.SANC 05:00
PROVIDERS: PCP Internal Medicine; Referring Provider Internal Medicine; Visit Provider Internal Medicine
DX: I10 Essential (primary) hypertension (principal); J44.9 Chronic obstructive pulmonary disease, unspecified
CPT/HCPCS: 36415; 80048; 85027

== ENCOUNTER → 2021-11-27 | Outpatient (REF) | payer MEDICARE, MEDICAID, SELFPAY ==
[2021-11-27 10:36] LABS: Hematocrit 25.4 % (40-54); Hemoglobin 8.1 g/dL (13.0-16.5); Mean Corp Hgb Conc 31.9 g/dL (32-36); Mean Corpuscular Hgb 31.3 pg (27.0-32.0); Mean Corpuscular Volume 98.1 fL (80-94); Mean Platelet Vol. 9.7 fl (6.2-12.0); Platelet Count 287 K/mm3 (150-450); RBC Distribution Width CV 13.6 % (11.6-14.6); RBC Distribution Width SD 48.8 fl (35.1-43.9); Red Blood Count 2.59 M/mm3 (4.6-6.2); White Blood Count 5.1 K/mm3 (4.4-11.0)
[2021-11-27 10:50] LABS: Anion Gap 3 (5-15); BUN 33 mg/dL (7-18); Calcium,Total 8.9 mg/dL (8.5-10.1); Chloride 106 mmol/L (98-107); Creatinine, Serum 0.62 mg/dL (0.70-1.30); EST Glomerular Filtration Rate 136 mL/min (>60); Est Glom Filt Rate - Afr Amer 164 mL/min (>60); Glucose 105 mg/dL (74-106); Sodium Level 139 mmol/L (136-145)
== END | disposition home or self-care (01) ==
LOC: OLS.SANC 05:00
PROVIDERS: PCP Internal Medicine; Visit Provider Internal Medicine
DX: I10 Essential (primary) hypertension (principal); J44.9 Chronic obstructive pulmonary disease, unspecified
CPT/HCPCS: 36415; 80048; 85027